=== PATIENT | male | born 1965 | race Caucasian/White ===

== ENCOUNTER 2020-06-13 22:16 | Inpatient (IN) | payer OTHER ==
[2020-06-13] MEDS ORDERED: DEXAMETHASONE SOD PHOSPHATE 10 MG/ML 1 ML VIAL IV STA (23:02)
[2020-06-13] MEDS ORDERED: SODIUM CHLORIDE 0.9% 500 ML 500 ML IV STA (23:03)
--- NOTE | 2020-06-13 23:30 | ED ---
SOB HPI - General Chief Complaint: Shortness of Breath Stated Complaint: COVID+,Low oxygen level Time Seen by Provider: 06/13/20 22:32 Source: patient Mode of arrival: ambulatory Limitations: no limitations - History of Present Illness Initial Comments: Patient is a healthy 55-year-old male, with no pertinent past medical history, presenting to the emergency Department with complaints of increasing shortness of breath. Patient states he was diagnosed with Covid 5 days ago, had body aches, fatigue, fever and a cough and shortness of breath. Patient states he's been monitoring his oxygen levels at home and they have been dipping down into the 80s so he came in to be seen. He states he is feeling increasingly short of breath. He was having some nausea and vomiting, some mild diarrhea to start with. He denies history of asthma or COPD, is a nonsmoker, he takes no medications at home. His is also Covid +, but not as severe. He has been taking Tylenol and Motrin for the fever. Denies chest pains, no abdominal pains. He has no further complaints at this time. Upon arrival to the ER, he is afebrile, slightly tachycardia at 101, 86% on room air. - Related Data Allergies Allergy/AdvReac Type Severity Reaction Status Date / Time No Known Allergies Allergy Verified 06/13/20 22:26 Review of Systems ROS Statement: Those systems with pertinent positive or pertinent negative responses have been documented in the HPI. ROS Other: All systems not noted in ROS Statement are negative. Past Medical History Past Medical History: No Reported History History of Any Multi-Drug Resistant Organisms: None Reported Past Surgical History: Orthopedic Surgery Past Psychological History: No Psychological Hx Reported Smoking Status: Never smoker Past Alcohol Use History: Occasional Past Drug Use History: None Reported General Exam - General Exam Comments Initial Comments: GENERAL: Patient is well-developed and well-nourished. Patient is nontoxic and in mild distress. HEAD: Atraumatic, normocephalic. EYES: Pupils equal round and reactive to light, extraocular movements intact, sclera anicteric, conjunctiva are normal. Eyelids were unremarkable. ENT: TMs normal, nares patent, oropharynx clear without exudates. Moist mucous membranes. NECK: Normal range of motion, supple without lymphadenopathy or JVD. LUNGS: Slightly labored respirations. Breath sounds clear to auscultation bilaterally and equal. No wheezes rales or rhonchi. HEART: Tachy rate and rhythm without murmurs, rubs or gallops. ABDOMEN: Soft, nontender, normoactive bowel sounds. No guarding, no rebound. No masses appreciated. : Deferred MUSCULOSKELETAL: Normal extremities with adequate strength and normal range of motion, no pitting or edema. No clubbing or cyanosis. NEUROLOGICAL: Patient is alert and oriented x 3. Motor and sensory are also intact. Cranial nerves II through XII grossly intact. Symmetrical smile. Normal speech, normal gait. PSYCH: Normal mood, normal affect. SKIN: Warm, Dry, normal turgor, no rashes or lesions noted. Limitations: no limitations Course Vital Signs 06/13/20 06/13/20 06/14/20 22:22 23:01 00:14 Temperature 97.8 F Pulse Rate 101 H 90 84 Respiratory 18 20 18 Rate Blood Pressure 114/75 120/77 109/80 O2 Sat by Pulse 86 L 96 98 Oximetry 06/14/20 06/14/20 01:06 02:20 Temperature Pulse Rate 87 90 Respiratory 18 18 Rate Blood Pressure 122/82 122/82 O2 Sat by Pulse 95 95 Oximetry Medical Decision Making - Medical Decision Making Patient is a 55-year-old male here with increasing shortness of breath over the past few days. Covid +5 days ago. Patient arrived afebrile, 86% on room air. He was switched to a nonrebreather satting at 96%. Labs show normal white count, slightly elevated dimer 0.84. Sodium and chloride are low, LDH is high at 2500, CRP is 150. Chest x-ray shows extensive pulmonary infiltrates could relate to pneumonia and RSD. CT chest angio shows no evidence for PE. Patient given dose of steroids, some fluids. He has been resting comfortably. He'll be admitted for Covid pneumonia, hypoxia. Patient accepted by Dr. Holder. Pulmonology on consult. Case discussed with Dr. Cruz. - Lab Data Result diagrams: 06/13/20 23:07 06/13/20 23:07 Lab Results 06/13/20 06/13/20 06/13/20 Range/Units 23:07 23:07 23:07 WBC 6.4 (3.8-10.6) k/uL RBC 5.17 (4.30-5.90) m/uL Hgb 16.2 (13.0-17.5) gm/dL Hct 45.0 (39.0-53.0) % MCV 87.1 (80.0-100.0) fL MCH 31.3 (25.0-35.0) pg MCHC 35.9 (31.0-37.0) g/dL RDW 12.9 (11.5-15.5) % Plt Count 153 (150-450) k/uL MPV 8.3 Neutrophils % 81 % Lymphocytes % 14 % Monocytes % 3 % Eosinophils % 0 % Basophils % 1 % Neutrophils # 5.2 (1.3-7.7) k/uL Lymphocytes # 0.9 L (1.0-4.8) k/uL Monocytes # 0.2 (0-1.0) k/uL Eosinophils # 0.0 (0-0.7) k/uL Basophils # 0.0 (0-0.2) k/uL PT 10.6 (9.0-12.0) sec INR 1.0 (<1.2) APTT 27.1 (22.0-30.0) sec D-Dimer 0.84 H (<0.60) mg/L FEU Sodium 129 L (137-145) mmol/L Potassium 4.6 (3.5-5.1) mmol/L Chloride 97 L (98-107) mmol/L Carbon Dioxide 23 (22-30) mmol/L Anion Gap 9 mmol/L BUN 12 (9-20) mg/dL Creatinine 0.84 (0.66-1.25) mg/dL Est GFR (CKD-EPI)AfAm >90 (>60 ml/min/1.73 sqM) Est GFR (CKD-EPI)NonAf >90 (>60 ml/min/1.73 sqM) Glucose 114 H (74-99) mg/dL Plasma Lactic Acid Arthur (0.7-2.0) mmol/L Calcium 8.4 (8.4-10.2) mg/dL Magnesium 2.0 (1.6-2.3) mg/dL Total Bilirubin 0.8 (0.2-1.3) mg/dL AST 106 H (17-59) U/L ALT 77 H (4-49) U/L Alkaline Phosphatase 57 (38-126) U/L Lactate Dehydrogenase 2547 H (313-618) U/L C-Reactive Protein 150.7 H (<10.0) mg/L Total Protein 6.5 (6.3-8.2) g/dL Albumin 3.6 (3.5-5.0) g/dL 06/13/20 Range/Units 23:07 WBC (3.8-10.6) k/uL RBC (4.30-5.90) m/uL Hgb (13.0-17.5) gm/dL Hct (39.0-53.0) % MCV (80.0-100.0) fL MCH (25.0-35.0) pg MCHC (31.0-37.0) g/dL RDW (11.5-15.5) % Plt Count (150-450) k/uL MPV Neutrophils % % Lymphocytes % % Monocytes % % Eosinophils % % Basophils % % Neutrophils # (1.3-7.7) k/uL Lymphocytes # (1.0-4.8) k/uL Monocytes # (0-1.0) k/uL Eosinophils # (0-0.7) k/uL Basophils # (0-0.2) k/uL PT (9.0-12.0) sec INR (<1.2) APTT (22.0-30.0) sec D-Dimer (<0.60) mg/L FEU Sodium (137-145) mmol/L Potassium (3.5-5.1) mmol/L Chloride (98-107) mmol/L Carbon Dioxide (22-30) mmol/L Anion Gap mmol/L BUN (9-20) mg/dL Creatinine (0.66-1.25) mg/dL Est GFR (CKD-EPI)AfAm (>60 ml/min/1.73 sqM) Est GFR (CKD-EPI)NonAf (>60 ml/min/1.73 sqM) Glucose (74-99) mg/dL Plasma Lactic Acid Arthur 1.0 (0.7-2.0) mmol/L Calcium (8.4-10.2) mg/dL Magnesium (1.6-2.3) mg/dL Total Bilirubin (0.2-1.3) mg/dL AST (17-59) U/L ALT (4-49) U/L Alkaline Phosphatase (38-126) U/L Lactate Dehydrogenase (313-618) U/L C-Reactive Protein (<10.0) mg/L Total Protein (6.3-8.2) g/dL Albumin (3.5-5.0) g/dL - EKG Data EKG Comments: Normal sinus rhythm, possible left atrial large amount, pulmonary disease pattern, no signs of acute ischemia. Ventricular rate 92, NC interval 132, QT 350. Disposition Clinical Impression: Pneumonia due to COVID-19 virus, Hypoxia Disposition: ADMITTED IP TO THIS HOSP Condition: Stable Referrals: Maxwell Alexander MD [Primary Care Provider] - 1-2 days Decision Date: 06/14/20 Decision Time: 01:48
[2020-06-13 23:38] LABS: Basophils % (A) 1 %; Eosinophils % (A) 0 %; HGB 16.2 gm/dL (13.0-17.5); Lymphocytes # (A) 0.9 k/uL (1.0-4.8); Lymphocytes % (A) 14 %; MCH 31.3 pg (25.0-35.0); MCHC 35.9 g/dL (31.0-37.0); MCV 87.1 fL (80.0-100.0); Mean Platelet Volume 8.3; Monocytes # (A) 0.2 k/uL (0-1.0); Monocytes % (A) 3 %; Neutrophils # (A) 5.2 k/uL (1.3-7.7); Neutrophils % (A) 81 %; Platelet Count 153 k/uL (150-450); RBC 5.17 m/uL (4.30-5.90); RDW 12.9 % (11.5-15.5); WBC 6.4 k/uL (3.8-10.6)
[2020-06-13 23:52] LABS: Partial Thromboplastin Time 27.1 sec (22.0-30.0); Prothrombin Time 10.6 sec (9.0-12.0)
--- NOTE | 2020-06-14 00:01 | XR ---
EXAMINATION TYPE: XR chest 1V portable DATE OF EXAM: 06/13/2020 COMPARISON: NONE HISTORY: Short of breath TECHNIQUE: Single view FINDINGS: There is extensive bilateral pulmonary interstitial and airspace infiltrates. There are myrna st leads. IMPRESSION: Extensive pulmonary infiltrates that could relate to pneumonia and RDS.
[2020-06-14 00:03] LABS: ALT 77 U/L (4-49); AST 106 U/L (17-59); African American GFR (CKD) >90 (>60 ml/min/1.73 sqM); Albumin 3.6 g/dL (3.5-5.0); Alkaline Phosphatase 57 U/L (38-126); Anion Gap 9 mmol/L; Blood Urea Nitrogen 12 mg/dL (9-20); Calcium 8.4 mg/dL (8.4-10.2); Carbon Dioxide 23 mmol/L (22-30); Chloride 97 mmol/L (98-107); Glucose 114 mg/dL (74-99); Non-African American GFR(CKD) >90 (>60 ml/min/1.73 sqM); Potassium 4.6 mmol/L (3.5-5.1); Sodium 129 mmol/L (137-145); Total Bilirubin 0.8 mg/dL (0.2-1.3); Total Protein 6.5 g/dL (6.3-8.2)
[2020-06-14 00:25] LABS: LDH 2547 U/L (313-618)
[2020-06-14 00:32] LABS: C Reactive Protein 150.7 mg/L (<10.0); D-Dimer 0.84 mg/L FEU (<0.60)
[2020-06-14] MEDS ORDERED: NALOXONE 0.4 MG/ML 1 ML VIAL IV PRN (01:45)
[2020-06-14] MEDS ORDERED: IBUPROFEN 400 MG TAB PO PRN (01:45)
[2020-06-14] MEDS ORDERED: ONDANSETRON 4 MG/2 ML VIAL IVP PRN (01:45)
--- NOTE | 2020-06-14 02:34 | CT ---
EXAM: CT Angiography Chest With Intravenous Contrast CLINICAL HISTORY: ITS.REASON CT Reason: PE TECHNIQUE: Axial computed tomographic angiography images of the chest with intravenous contrast. CTDI is 20.07 mGy and DLP is 450.4 mGy-cm. This CT exam was performed using one or more of the following dose reduction techniques: automated exposure control, adjustment of the mA and/or kV according to patient size, and/or use of iterative reconstruction technique. MIP reconstructed images were created and reviewed. COMPARISON: No relevant prior studies available. FINDINGS: Pulmonary arteries: Unremarkable. No pulmonary embolism. Aorta: No acute findings. No thoracic aortic aneurysm. Lungs: Patchy areas of nodular consolidation in the bilateral lower lobes with ground glass consolidation of the periphery of the bilateral upper lobes. Pleural space: Unremarkable. No significant effusion. No pneumothorax. Heart: Unremarkable. No cardiomegaly. No significant pericardial effusion. No evidence of RV dysfunction. Bones/joints: No acute fracture. No dislocation. Soft tissues: Unremarkable. Lymph nodes: Unremarkable. No enlarged lymph nodes. IMPRESSION: 1. No acute pulmonary embolism. 2. Patchy areas of nodular consolidation in the bilateral lower lobes with ground glass consolidation of the periphery of the bilateral upper lobes consistent with multifocal infection, compatible with COVID pneumonia. 3. No pleural effusions or pneumothorax.
[2020-06-14] MEDS: ACETAMINOPHEN TAB 325 MG TAB PO PRN (05:13)
[2020-06-14] MEDS: SODIUM CHLORIDE 0.9% 1,000 ML IV SCH ×2 (05:26→17:51)
[2020-06-14] MEDS: ASCORBIC ACID 500 MG TAB PO SCH (08:47)
[2020-06-14] MEDS: ENOXAPARIN 40 MG/0.4 ML SYRINGE SQ SCH (08:47)
[2020-06-14] MEDS: CHOLECALCIFEROL 25 MCG (1000 IU) TABLET PO SCH (08:47)
[2020-06-14] MEDS: dexAMETHasone 2 MG TAB PO SCH (08:48)
[2020-06-14] MEDS: ZINC SULFATE 220 MG CAP PO SCH (08:49)
--- NOTE | 2020-06-14 10:07 | P.CNPUL ---
History of Present Illness Consult date: 06/14/20 Reason for consult: dyspnea, hypoxemia, pneumonia History of present illness: 55-year-old female patient presented with shortness of breath and the patient had a COVID 19 associated pneumonia. The patient was diagnosed having COVID 19 likely 5 days ago. Patient symptoms as well as body ache and fatigue and subsequently fever and cough and shortness of breath. Her pulse ox at home and drop down to the 80s and for that reason the patient came into the hospital. She also had some nausea and emesis and some mild diarrhea. She was taking T ylenol for her fever in addition to Motrin. In the emergency, the patient's pulse ox was 86% on room air and she was tachycardic, sinus tachycardia. Her blood work showed an LDH level of 2547, CRP of 150, d-dimer of 0.8. Sodium level was 129. The patient had lymphopenia. The chest x-ray showed extensive bilateral consolidations most on the peripheries and spreading the upper lobes. A CT angiogram of the chest showed no evidence of any pulmonary embolism. The patient had patchy areas of no other consolidation in the lower lobes bilaterally along with some areas of groundglass and consolidations bilaterally. No evidence of any pleural effusion. No other major abnormalities. Patient is currently on oxygen and he is on 15 L of oxygen by nonrebreather facemask. He is also placed on Decadron 6 mg by mouth daily, Lovenox 40 mg subcu daily. At this point in time, the patient is on 15 L nonrebreather facemask. He has labored breathing even while talking and sometimes even at rest. Review of Systems Constitutional: Reports fatigue, Reports fever, Reports lethargy Eyes: denies as per HPI, denies blurred vision, denies bulging eye, denies decreased vision, denies diplopia, denies discharge, denies dry eye, denies i rritation, denies itching, denies pain, denies photophobia, denies loss of peripheral vision, denies loss of vision, denies tunnel vision/blind spots Ears: deny: decreased hearing, ear discharge, earache, tinnitus Breasts: absent: as per HPI, gynecomastia Cardiovascular: Reports dyspnea on exertion Respiratory: Reports cough, Reports dyspnea Gastrointestinal: Reports as per HPI, Reports diarrhea, Reports loss of appetite Genitourinary: Reports as per HPI Musculoskeletal: Reports as per HPI, Reports muscle weakness Musculoskeletal: absent: ankle pain, ankle stiffness, ankle swelling, as per HPI , elbow pain, elbow stiffness, elbow swelling, foot pain, foot stiffness, foot swelling, hand pain, hand stiffness, hand swelling, hip pain, hip stiffness, hip swelling, knee pain, knee stiffness, knee swelling, shoulder pain, shoulder stiffness, shoulder swelling, wrist pain, wrist stiffness, wrist swelling Integumentary: Reports as per HPI Neurological: Reports as per HPI, Reports weakness Psychiatric: Reports as per HPI Endocrine: Reports as per HPI Hematologic/Lymphatic: Reports as per HPI Allergic/Immunologic: Reports as per HPI Past Medical History Past Medical History: No Reported History History of Any Multi-Drug Resistant Organisms: None Reported Past Surgical History: Orthopedic Surgery Additional Past Surgical History / Comment(s): surgery on hyloid surgery Past Anesthesia/Blood Transfusion Reactions: No Reported Reaction Past Psychological History: No Psychological Hx Reported Smoking Status: Never smoker Past Alcohol Use History: Occasional Past Drug Use History: None Reported - Past Family History Father Additional Family Medical History / Comment(s): none Medications and Allergies Home Medications Medication Instructions Recorded Confirmed Type No Known Home Medications 06/14/20 06/14/20 History Allergies Allergy/AdvReac Type Severity Reaction Status Date / Time No Known Allergies Allergy Verified 06/14/20 07:39 Physical Exam Vitals: Vital Signs Temp Pulse Pulse Resp BP BP Pulse Ox 06/14/20 02:20 90 18 122/82 95 06/14/20 02:15 26 H 06/14/20 02:14 97 F L 91 19 116/59 91 L 06/14/20 01:06 87 18 122/82 95 06/14/20 00:14 84 18 109/80 98 06/13/20 23:01 90 20 120/77 96 06/13/20 22:22 97.8 F 101 H 18 114/75 86 L Intake and Output 06/13/20 06/14/20 06/14/20 22:59 06:59 14:59 Intake Total 260 Balance 260 Intake: Intake, IV Titration 60 Amount Sodium Chloride 0.9% 1, 60 000 ml @ 60 mls/hr IV . [id number] [facility] Rx#:[id number] Oral 200 Other: # Voids 1 Weight 81.647 kg 79.379 kg Gen. appearance the patient is in mild degree of respiratory distress currently on 100% nonrebreather facemask Head exam was generally normal. There was no scleral icterus or corneal arcus. Mucous membranes were moist. Neck was supple and without jugular venous distension, thyromegaly, or carotid bruits. Carotids were easily palpable bilaterally. There was no adenopathy. Lungs sounds reveal crackles in the mid and lower lung driver bilaterally and the patient is extensive crackling Cardiac exam revealed the PMI to be normally situated and sized. The rhythm was regular and no extrasystoles were noted during several minutes of auscultation. The first and second heart sounds were normal and physiologic splitting of the second heart sound was noted. There were no murmurs, rubs, clicks, or gallops. Abdominal exam revealed normal bowel sounds. The abdomen was soft, non-tender, and without masses, organomegaly, or appreciable enlargement of the abdominal aorta. Examination of the extremities revealed easily palpable radial, femoral and pedal pulses. There was no cyanosis, clubbing or edema. Examination of the skin revealed no evidence of significant rashes, suspicious appearing nevi or other concerning lesions. Neurologically, the patient is awake and alert and the patient does not have any focal neurological deficit. Cranial nerves are essentially intact. Results - Laboratory Findings CBC and BMP: 06/13/20 23:07 06/13/20 23:07 PT/INR, D-dimer PT 10.6 sec (9.0-12.0) 06/13/20 23:07 INR 1.0 (<1.2) 06/13/20 23:07 D-Dimer 0.84 mg/L FEU (<0.60) H 06/13/20 23:07 Abnormal lab findings: Abnormal Labs 06/13/20 06/13/20 06/13/20 23:07 23:07 23:07 Lymphocytes # 0.9 L D-Dimer 0.84 H Sodium 129 L Chloride 97 L Glucose 114 H AST 106 H ALT 77 H Lactate Dehydrogenase 2547 H C-Reactive Protein 150.7 H - Diagnostic Findings Chest x-ray: image reviewed CT scan - chest: image reviewed Assessment and Plan Plan: 1 acute Covid 19pneumonia with secondary shortness of breath. Patient was diagnosed on 06/08/2020. Symptoms started on 06/07/2020 the patient rapidly progressed and the patient is coming in with worsening shortness of breath and bilateral pneumonia and extensive consolidation 2 acute hypoxic respiratory failure currently on 100% nonrebreather facemask 3 shortness of breath secondary to above 4 elevated inflammatory markers secondary to above 5 lymphopenia secondary to above 6 mild hyponatremia Plan The patient on the percent nonrebreather facemask and monitor the oxygenation v palma closely May need high flow oxygen at a later stage or even the BiPAP Is not a candidate for Remdesivir due to high oxygen requirements Continue Decadron 6 mg IV every 24 hours Order convalescent plasma Ordered Tocilizumab 634 mg IV 1 Monitor inflammatory markers IV fluids Multivitamins We'll continue to follow.
[2020-06-14 11:00] LABS: Basophils % (A) 0 %; Eosinophils % (A) 0 %; HCT 45.6 % (39.0-53.0); HGB 16.4 gm/dL (13.0-17.5); Lymphocytes # (A) 0.5 k/uL (1.0-4.8); Lymphocytes % (A) 8 %; MCH 31.6 pg (25.0-35.0); MCV 87.8 fL (80.0-100.0); Mean Platelet Volume 8.5; Monocytes # (A) 0.2 k/uL (0-1.0); Monocytes % (A) 3 %; Neutrophils # (A) 6.1 k/uL (1.3-7.7); Neutrophils % (A) 88 %; Platelet Count 174 k/uL (150-450); RBC 5.19 m/uL (4.30-5.90); RDW 13.1 % (11.5-15.5); WBC 6.9 k/uL (3.8-10.6)
[2020-06-14] MEDS ORDERED: TOCILIZUMAB 640 MG in SODIUM CHLORIDE 0.9% 68 ML IV ONE (11:00)
[2020-06-14 11:19] LABS: ALT 70 U/L (4-49); AST 90 U/L (17-59); African American GFR (CKD) >90 (>60 ml/min/1.73 sqM); Albumin 3.1 g/dL (3.5-5.0); Alkaline Phosphatase 66 U/L (38-126); Anion Gap 4 mmol/L; Blood Urea Nitrogen 15 mg/dL (9-20); Calcium 8.4 mg/dL (8.4-10.2); Carbon Dioxide 27 mmol/L (22-30); Chloride 104 mmol/L (98-107); Glucose 146 mg/dL (74-99); Non-African American GFR(CKD) >90 (>60 ml/min/1.73 sqM); Potassium 4.8 mmol/L (3.5-5.1); Sodium 135 mmol/L (137-145); Total Bilirubin 0.5 mg/dL (0.2-1.3); Total Protein 5.7 g/dL (6.3-8.2)
[2020-06-14] MEDS: PANTOPRAZOLE 40 MG TABLET PO SCH (11:28)
[2020-06-14 11:32] LABS: C Reactive Protein 160.3 mg/L (<10.0); LDH 2347 U/L (313-618)
--- NOTE | 2020-06-14 14:41 | P.HPIM ---
History of Present Illness H&P Date: 06/14/20 Chief Complaint: KAVON HISTORY OF PRESENT ILLNESS This is a 55-year-old male patient of Dr. Maxwell Alexander with significant past medical history. Patient states he started having symptoms on June 01 and was diagnosed with COVID-19 on June 08. Patient symptoms or body aches and fatigue as well as cough with white sputum production, increasing shortness of breath and measured pulse ox at home which worsened. He complains of headache chills and nausea. Patient presented to [facility] emergency center for evaluation. Patient was afebrile, heart rate 101, blood pressure 114/75, pulse ox 86% on room air. WBC 6.4, hemoglobin 16.2, platelet count 153. D-dimer 0.84. AST 106, ALT 44, alkaline phosphatase 57, LDH 2547. CRP 150. Sodium 129, potassium 4.6, chloride 97, CO2 23, BUN 12 and creatinine 0.84. Blood sugar 114. Chest x-ray reveals extensive pulmonary infiltrates related to pneumonia and ARDS. CTA of the chest reveals no pulmonary embolism. Patchy areas of nodular consolidations in the bilateral lower lobes with groundglass consolidation of the peripheral of the bilateral upper lobes consistent with multifocal infection compatible with Covid pneumonia. No pleural effusions or pneumothorax. Patient has been seen by pulmonary medicine is not a candidate for Remdesivir. Convalescent plasma has been ordered as well as Tocilizumab 1 dose. Patient is currently pulse ox 95% on 15 L nonrebreather. REVIEW OF SYSTEMS Constitutional: No fever, no chills, no night sweats. No weight change. Reports weakness, Reports fatigue or lethargy. No daytime sleepiness. EENT: Reports headache. No blurred vision or double vision, no loss of vision. No loss of Hearing, no ringing in the ears, no dizziness. No nasal drainage or congestion. No epistaxis. No sore throat. Lungs: Reports shortness of breath, reports cough, Reports sputum production. No wheezing. Cardiovascular: No chest pain, no lower extremity edema. No palpitations. No paroxysmal nocturnal dyspnea. No orthopnea. No lightheadedness or dizziness. No syncopal episodes. Abdominal: No abdominal pain. Reports nausea, no vomiting. No diarrhea. No constipation. No bloody or tarry stools reports loss of appetite. Genitourinary: No dysuria, increased frequency, urgency. No urinary retention. Musculoskeletal: Reports myalgias. No muscle weakness, no gait dysfunction, no frequent falls. No back pain. No neck pain. Integumentary: No wounds, no lesions. No rash or pruritus. No unusual bruising. Neurologic: No aphasia. No facial droop. No change in mentation. No head injury. No headache. No paralysis. No paresthesia. Psychiatric: No depression. No anxiety. No mood swings. Endocrine: No abnormal blood sugars. No weight change. No excessive sweating or thirst. No cold intolerance. SOCIAL HISTORY Patient is a nonsmoker, no alcohol use or abuse, no illicit drug use. FAMILY HISTORY Mother from lung cancer. Father is alive with no major medical problems. Patient does not have any sisters. Patient has 2 brothers with no major medical problems. PHYSICAL EXAMINATION Gen: This is a 55-year-old male. He is resting in bed appears to be comfortable at rest. He is currently on 100% nonrebreather mask.] HEENT: Head is atraumatic, normocephalic. Pupils equal, round. Sclerae is anicteric. NECK: Supple. No JVD. No lymphadenopathy. No thyromegaly. LUNGS: Crackles bilaterally. No wheezes. No intercostal retractions. HEART: Regular rate and rhythm. No murmur. ABDOMEN: Soft. Bowel sounds are present. No masses. No tenderness. EXTREMITIES: No pedal edema. No calf tenderness. Dorsalis pedis +2 bilaterally. NEUROLOGICAL: Patient is awake, alert and oriented x3. Cranial nerves 2 through 12 are grossly intact. ASSESSMENT AND PLAN 1. Acute hypoxic respiratory failure secondary to Covid 19 pneumonia. Patient has been seen by both her medicine and Convalescent plasma has been ordered as well as Tocilizumab 1 dose. Continue dexamethasone 6 mg every 24 hours, Lovenox 40 mg subcu daily, vitamins. 2. Elevated inflammatory markers secondary to Covid 19. Continue to monitor. 3. Mild hyponatremia. Continue IV fluids. 4. Elevated d-dimer. Acute pulmonary embolism has been ruled out by CTA. 5. Lymphocytopenia secondary to Covid 19. 6. GI prophylaxis. Protonix daily. 7. DVT prophylaxis. Lovenox. Patient will be admitted to the hospital for a minimum of 2 night stay. DISCHARGE PLAN Home. Impression and plan of care have been directed as dictated by the signing physician. Cathy Quintanilla nurse practitioner acting as scribe for signing physician. Past Medical History Past Medical History: No Reported History History of Any Multi-Drug Resistant Organisms: None Reported Past Surgical History: Orthopedic Surgery Additional Past Surgical History / Comment(s): surgery on hyloid surgery Past Anesthesia/Blood Transfusion Reactions: No Reported Reaction Past Psychological History: No Psychological Hx Reported Smoking Status: Never smoker Past Alcohol Use History: Occasional Past Drug Use History: None Reported - Past Family History Father Additional Family Medical History / Comment(s): none Medications and Allergies Home Medications Medication Instructions Recorded Confirmed Type No Known Home Medications 06/14/20 06/14/20 History Allergies Allergy/AdvReac Type Severity Reaction Status Date / Time No Known Allergies Allergy Verified 06/14/20 07:39 Physical Exam Vitals: Vital Signs Temp Pulse Pulse Resp BP BP Pulse Ox 06/14/20 02:20 90 18 122/82 95 06/14/20 02:15 26 H 06/14/20 02:14 97 F L 91 19 116/59 91 L 06/14/20 01:06 87 18 122/82 95 06/14/20 00:14 84 18 109/80 98 06/13/20 23:01 90 20 120/77 96 06/13/20 22:22 97.8 F 101 H 18 114/75 86 L Intake and Output 06/13/20 06/14/20 06/14/20 22:59 06:59 14:59 Intake Total 260 Balance 260 Intake: Intake, IV Titration 60 Amount Sodium Chloride 0.9% 1, 60 000 ml @ 60 mls/hr IV . [id number] [facility] Rx#:[id number] Oral 200 Other: # Voids 1 Weight 81.647 kg 79.379 kg Results CBC & Chem 7: 06/14/20 10:20 06/14/20 10:20 Labs: Abnormal Lab Results - Last 24 Hours (Table) 06/13/20 06/13/20 06/13/20 Range/Units 23:07 23:07 23:07 Lymphocytes # 0.9 L (1.0-4.8) k/uL D-Dimer 0.84 H (<0.60) mg/L FEU Sodium 129 L (137-145) mmol/L Chloride 97 L (98-107) mmol/L Glucose 114 H (74-99) mg/dL AST 106 H (17-59) U/L ALT 77 H (4-49) U/L Lactate Dehydrogenase 2547 H (313-618) U/L C-Reactive Protein 150.7 H (<10.0) mg/L Thrombosis Risk Factor Assmnt - Choose All That Apply Any of the Below Risk Factors Present?: Yes Each Factor Represents 1 point: Age 41-60 years Other Risk Factors: No Other congenital or acquired thrombophilia - If yes, enter type in comment: No Thrombosis Risk Factor Assessment Total Risk Factor Score: 1 Thrombosis Risk Factor Assessment Level: Low Risk
[2020-06-14 17:06] LABS: Glucose,Whole Blood 139 mg/dL (75-99)
[2020-06-14] MEDS: INSULIN ASPART (NovoLOG) 100 UNIT/ML VIAL SQ SCH ×2 (17:41→20:54)
[2020-06-14 20:37] LABS: Glucose,Whole Blood 143 mg/dL (75-99)
[2020-06-15 07:58] LABS: Glucose,Whole Blood 118 mg/dL (75-99)
[2020-06-15 08:01] LABS: HCT 44.1 % (39.0-53.0); HGB 15.4 gm/dL (13.0-17.5); MCHC 34.9 g/dL (31.0-37.0); MCV 88.9 fL (80.0-100.0); Mean Platelet Volume 8.4; Platelet Count 208 k/uL (150-450); RBC 4.96 m/uL (4.30-5.90); RDW 13.1 % (11.5-15.5); WBC 11.4 k/uL (3.8-10.6)
[2020-06-15 08:26] LABS: ALT 67 U/L (4-49); AST 96 U/L (17-59); African American GFR (CKD) >90 (>60 ml/min/1.73 sqM); Alkaline Phosphatase 70 U/L (38-126); Anion Gap 4 mmol/L; Blood Urea Nitrogen 20 mg/dL (9-20); C Reactive Protein 59.4 mg/L (<10.0); Calcium 8.2 mg/dL (8.4-10.2); Carbon Dioxide 27 mmol/L (22-30); Chloride 105 mmol/L (98-107); Glucose 133 mg/dL (74-99); Non-African American GFR(CKD) >90 (>60 ml/min/1.73 sqM); Potassium 4.8 mmol/L (3.5-5.1); Sodium 136 mmol/L (137-145); Total Bilirubin 0.5 mg/dL (0.2-1.3); Total Protein 5.5 g/dL (6.3-8.2)
[2020-06-15 08:31] LABS: LDH 2884 U/L (313-618)
[2020-06-15] MEDS: INSULIN ASPART (NovoLOG) 100 UNIT/ML VIAL SQ SCH ×4 (09:00→20:40)
--- NOTE | 2020-06-15 09:45 | XR ---
EXAMINATION TYPE: XR chest 1V portable DATE OF EXAM: 06/15/2020 COMPARISON: 06/13/2020 INDICATION: Covid TECHNIQUE: Single frontal view of the chest is obtained. FINDINGS: The heart size is normal. The pulmonary vasculature is normal. Diffuse increased lung markings are present bilaterally. IMPRESSION: 1. Worsening diffuse bilateral lung filtrates.
[2020-06-15] MEDS: ENOXAPARIN 40 MG/0.4 ML SYRINGE SQ SCH (09:47)
[2020-06-15] MEDS: PANTOPRAZOLE 40 MG TABLET PO SCH (09:47)
[2020-06-15] MEDS: CHOLECALCIFEROL 25 MCG (1000 IU) TABLET PO SCH (09:48)
[2020-06-15] MEDS: ZINC SULFATE 220 MG CAP PO SCH (09:48)
[2020-06-15] MEDS: ASCORBIC ACID 500 MG TAB PO SCH (09:48)
[2020-06-15] MEDS: dexAMETHasone 2 MG TAB PO SCH (09:48)
[2020-06-15] MEDS ORDERED: FLUTICASONE 50MCG/SPRAY NASAL 16GM EA NOSTRIL PRN (09:56)
[2020-06-15] MEDS: BENZONATATE 100 MG CAP PO SCH ×3 (10:33→21:34)
[2020-06-15] MEDS: SODIUM CHLORIDE 0.9% 1,000 ML IV SCH (10:33)
--- NOTE | 2020-06-15 10:47 | P.PN ---
Subjective Progress Note Date: 06/15/20 55-year-old female patient presented with shortness of breath and the patient h ad a COVID 19 associated pneumonia. The patient was diagnosed having COVID 19 likely 5 days ago. Patient symptoms as well as body ache and fatigue and subsequently fever and cough and shortness of breath. Her pulse ox at home and drop down to the 80s and for that reason the patient came into the hospital. She also had some nausea and emesis and some mild diarrhea. She was taking Tylenol for her fever in addition to Motrin. In the emergency, the patient's pulse ox was 86% on room air and she was tachycardic, sinus tachycardia. Her blood work showed an LDH level of 2547, CRP of 150, d-dimer of 0.8. Sodium level was 129. The patient had lymphopenia. The chest x-ray showed extensive bilateral consolidations most on the peripheries and spreading the upper lobes. A CT angiogram of the chest showed no evidence of any pulmonary embolism. The patient had patchy areas of no other consolidation in the lower lobes bilaterally along with some areas of groundglass and consolidations bilaterally. No evidence of any pleural effusion. No other major abnormalities. Patient is currently on oxygen and he is on 15 L of oxygen by nonrebreather facemask. He is also placed on Decadron 6 mg by mouth daily, Lovenox 40 mg subcu daily. At this point in time, the patient is on 15 L nonrebreather facemask. He has labored breathing even while talking and sometimes even at rest. 06/15/2020, the patient remains in the 100% nonrebreather facemask. Repeat chest x-ray was done and was reported that the patient has diffuse interstitial infiltrates bilaterally with probably some interval worsening. Clinically however, the patient is feeling better. He also was started on a combination of steroids and the patient received convalescent plasma 1 and he also received a dose of Actemra 140 mg IV. His blood work from today is showing a d-dimer of 0.95, LDH level is up to 2884 and the CRP level is down to 59.4. Objective - Vital Signs Vital signs: Vital Signs Temp 96.5 F L 06/15/20 07:45 Pulse 87 06/15/20 07:45 Resp 32 H 06/15/20 07:45 BP 112/70 06/15/20 07:45 Pulse Ox 88 L 06/15/20 07:45 Intake & Output 06/14/20 06/15/20 06/15/20 18:59 06:59 18:59 Intake Total 1134 1220 Balance 1134 1220 Intake: Intake, IV Titration 488 720 Amount Sodium Chloride 0.9% 1, 420 720 000 ml @ 60 mls/hr IV . [id number] [facility] Rx#:[id number] Tocilizumab 640 mg In 68 Sodium Chloride 0.9% 68 ml @ 100 mls/hr IV ONCE ONE Rx#:[id number] Blood Product 646 500 Ffp Convalescent Plasma 323 Cpd Unit [id number] Other: # Voids 2 # Bowel Movements 2 - Exam Gen. appearance the patient is in mild degree of respiratory distress currently on 100% nonrebreather facemask Head exam was generally normal. There was no scleral icterus or corneal arcus. Mucous membranes were moist. Neck was supple and without jugular venous distension, thyromegaly, or carotid bruits. Carotids were easily palpable bilaterally. There was no adenopathy. Lungs sounds reveal crackles in the mid and lower lung driver bilaterally and the patient is extensive crackling Cardiac exam revealed the PMI to be normally situated and sized. The rhythm was regular and no extrasystoles were noted during several minutes of auscultation. The first and second heart sounds were normal and physiologic splitting of the second heart sound was noted. There were no murmurs, rubs, clicks, or gallops. Abdominal exam revealed normal bowel sounds. The abdomen was soft, non-tender, and without masses, organomegaly, or appreciable enlargement of the abdominal aorta. Examination of the extremities revealed easily palpable radial, femoral and pedal pulses. There was no cyanosis, clubbing or edema. Examination of the skin revealed no evidence of significant rashes, suspicious appearing nevi or other concerning lesions. Neurologically, the patient is awake and alert and the patient - Labs CBC & Chem 7: 06/15/20 07:32 06/15/20 07:32 Labs: Abnormal Lab Results - Last 24 Hours (Table) 06/14/20 06/14/20 06/14/20 Range/Units 10:20 10:20 10:20 WBC (3.8-10.6) k/uL Lymphocytes # 0.5 L (1.0-4.8) k/uL D-Dimer 0.78 H (<0.60) mg/L FEU Sodium 135 L (137-145) mmol/L Glucose 146 H (74-99) mg/dL POC Glucose (mg/dL) (75-99) mg/dL Calcium (8.4-10.2) mg/dL AST 90 H (17-59) U/L ALT 70 H (4-49) U/L Lactate Dehydrogenase 2347 H (313-618) U/L C-Reactive Protein 160.3 H (<10.0) mg/L Total Protein 5.7 L (6.3-8.2) g/dL Albumin 3.1 L (3.5-5.0) g/dL 06/14/20 06/14/20 06/15/20 Range/Units 17:04 20:36 07:32 WBC 11.4 H (3.8-10.6) k/uL Lymphocytes # (1.0-4.8) k/uL D-Dimer (<0.60) mg/L FEU Sodium (137-145) mmol/L Glucose (74-99) mg/dL POC Glucose (mg/dL) 139 H 143 H (75-99) mg/dL Calcium (8.4-10.2) mg/dL AST (17-59) U/L ALT (4-49) U/L Lactate Dehydrogenase (313-618) U/L C-Reactive Protein (<10.0) mg/L Total Protein (6.3-8.2) g/dL Albumin (3.5-5.0) g/dL 06/15/20 06/15/20 06/15/20 Range/Units 07:32 07:32 07:43 WBC (3.8-10.6) k/uL Lymphocytes # (1.0-4.8) k/uL D-Dimer 0.95 H (<0.60) mg/L FEU Sodium 136 L (137-145) mmol/L Glucose 133 H (74-99) mg/dL POC Glucose (mg/dL) 118 H (75-99) mg/dL Calcium 8.2 L (8.4-10.2) mg/dL AST 96 H (17-59) U/L ALT 67 H (4-49) U/L Lactate Dehydrogenase 2884 H (313-618) U/L C-Reactive Protein 59.4 H (<10.0) mg/L Total Protein 5.5 L (6.3-8.2) g/dL Albumin 3.0 L (3.5-5.0) g/dL Assessment and Plan Plan: 1 acute Covid 19 pneumonia with secondary shortness of breath. Patient was diagnosed on 06/08/2020. Symptoms started on 06/07/2020 the patient rapidly progressed and the patient is coming in with worsening shortness of breath and bilateral pneumonia and extensive consolidation 2 acute hypoxic respiratory failure currently on 100% nonrebreather facemask 3 shortness of breath secondary to above 4 elevated inflammatory markers secondary to above 5 lymphopenia secondary to above 6 mild hyponatremia, normalized Plan The patient on the percent nonrebreather facemask and monitor the oxygenation very closely The patient 100% nonrebreather facemask Chest x-rays showing probable some interval worsening Is not a candidate for Remdesivir due to high oxygen requirements Continue Decadron 6 mg IV every 24 hours Transfused with a unit convalescent plasma Received Tocilizumab 634 mg IV 1 Monitor inflammatory markers, LDH level is still elevated There is a concern that he may get weak. We are going to order Ensure shakes. IV fluids Multivitamins We'll continue to follow.
--- NOTE | 2020-06-15 11:18 | P.PN ---
Subjective Progress Note Date: 06/15/20 HISTORY OF PRESENT ILLNESS This is a 55-year-old male patient of Dr. Maxwell Alexander with significant past medical history. Patient states he started having symptoms on June 01 and was diagnosed with COVID-19 on June 08. Patient symptoms or body aches and fatigue as well as cough with white sputum production, increasing shortness of breath and measured pulse ox at home which worsened. He complains of headache chills and nausea. Patient presented to [facility] emergency center for evaluation. Patient was afebrile, heart rate 101, blood pressure 114/75, pulse ox 86% on room air. WBC 6.4, hemoglobin 16.2, platelet count 153. D-dimer 0.84. AST 106, ALT 44, alkaline phosphatase 57, LDH 2547. CRP 150. Sodium 129, potassium 4.6, chloride 97, CO2 23, BUN 12 and creatinine 0.84. Blood sugar 114. Chest x-ray reveals extensive pulmonary infiltrates related to pneumonia and ARDS. CTA of the chest reveals no pulmonary embolism. Patchy areas of nodular consolidations in the bilateral lower lobes with groundglass consolidation of the peripheral of the bilateral upper lobes consistent with multifocal infection compatible with Covid pneumonia. No pleural effusions or pneumothorax. Patient has been seen by pulmonary medicine is not a candidate f or Remdesivir. Convalescent plasma has been ordered as well as Tocilizumab 1 dose. Patient is currently pulse ox 95% on 15 L nonrebreather. 06/15: Repeat chest x-ray reveals worsening infiltrates. Patient is currently on nonrebreather and nasal cannula with pulse ox of 89%. Patient states that he is not sleeping because of coughing. He continues to have cough, shortness of breath. Noted to be tachypneic. Patient states he is eating okay. Melatonin, Flonase and Tessalon Perles added. Patient has been afebrile, heart rate 87, respiratory rate 32, blood pressure 112/70. Repeat blood work reveals WBC 11.4, hemoglobin 15.4, platelet count 208. D-dimer 0.95. Sodium 136 other electroly jagdeep and renal function normal. Blood sugar 118. AST 96, ALT 67, alkaline phosphatase 70. LDH 2884. C-reactive protein 59.4. REVIEW OF SYSTEMS Constitutional: No fever, no chills, no night sweats. No weight change. Reports weakness, Reports fatigue or lethargy. No daytime sleepiness. EENT: Reports headache. No blurred vision or double vision, no loss of vision. No loss of Hearing, no ringing in the ears, no dizziness. No nasal drainage or congestion. No epistaxis. No sore throat. Lungs: Reports shortness of breath, reports cough, Reports sputum production. No wheezing. Cardiovascular: No chest pain, no lower extremity edema. No palpitations. No paroxysmal nocturnal dyspnea. No orthopnea. No lightheadedness or dizziness. No syncopal episodes. Abdominal: No abdominal pain. Reports nausea, no vomiting. No diarrhea. No constipation. No bloody or tarry stools reports loss of appetite. Genitourinary: No dysuria, increased frequency, urgency. No urinary retention. Musculoskeletal: Reports myalgias. No muscle weakness, no gait dysfunction, no frequent falls. No back pain. No neck pain. Integumentary: No wounds, no lesions. No rash or pruritus. No unusual bruising. Neurologic: No aphasia. No facial droop. No change in mentation. No head injury. No headache. No paralysis. No paresthesia. Psychiatric: No depression. No anxiety. No mood swings. Endocrine: No abnormal blood sugars. No weight change. PHYSICAL EXAMINATION Gen: This is a 55-year-old male. He is resting in bed appears to be in mild respiratory distress with nonrebreather and nasal cannula oxygen. HEENT: Head is atraumatic, normocephalic. Pupils equal, round. Sclerae is anicteric. NECK: Supple. No JVD. No lymphadenopathy. No thyromegaly. LUNGS: Crackles bilaterally. No wheezes. Mild accessory muscle usage, mild intercostal retractions. Patient is tachypneic. HEART: Regular rate and rhythm. No murmur. ABDOMEN: Soft. Bowel sounds are present. No masses. No tenderness. EXTREMITIES: No pedal edema. No calf tenderness. Dorsalis pedis +2 bilaterally. NEUROLOGICAL: Patient is awake, alert and oriented x3. Cranial nerves 2 through 12 are grossly intact. ASSESSMENT AND PLAN 1. Acute hypoxic respiratory failure secondary to Covid 19 pneumonia. Patient has been seen by pulmonary medicine status post Convalescent plasma and Tocilizumab 1 dose. Continue dexamethasone 6 mg every 24 hours, Lovenox 40 mg subcu daily, vitamins. 2. Elevated inflammatory markers secondary to Covid 19. Continue to monitor. 3. Mild hyponatremia. Continue IV fluids. 4. Elevated d-dimer. Acute pulmonary embolism has been ruled out by CTA. 5. Lymphocytopenia secondary to Covid 19. 6. GI prophylaxis. Protonix daily. 7. DVT prophylaxis. Lovenox. DISCHARGE PLAN Home. Impression and plan of care have been directed as dictated by the signing physician. Cathy Quintanilla nurse practitioner acting as scribe for signing physician. Objective - Vital Signs Vital signs: Vital Signs Temp 96.5 F L 06/15/20 07:45 Pulse 87 06/15/20 07:45 Resp 32 H 06/15/20 07:45 BP 112/70 06/15/20 07:45 Pulse Ox 88 L 06/15/20 07:45 Intake & Output 06/14/20 06/15/20 06/15/20 18:59 06:59 18:59 Intake Total 1134 1220 Balance 1134 1220 Intake: Intake, IV Titration 488 720 Amount Sodium Chloride 0.9% 1, 420 720 000 ml @ 60 mls/hr IV . [id number] [facility] Rx#:[id number] Tocilizumab 640 mg In 68 Sodium Chloride 0.9% 68 ml @ 100 mls/hr IV ONCE ONE Rx#:[id number] Blood Product 646 500 Ffp Convalescent Plasma 323 Cpd Unit [id number] Other: # Voids 2 # Bowel Movements 2 - Labs CBC & Chem 7: 06/15/20 07:32 06/15/20 07:32 Labs: Abnormal Lab Results - Last 24 Hours (Table) 06/14/20 06/14/20 06/14/20 Range/Units 10:20 10:20 10:20 WBC (3.8-10.6) k/uL Lymphocytes # 0.5 L (1.0-4.8) k/uL D-Dimer 0.78 H (<0.60) mg/L FEU Sodium 135 L (137-145) mmol/L Glucose 146 H (74-99) mg/dL POC Glucose (mg/dL) (75-99) mg/dL Calcium (8.4-10.2) mg/dL AST 90 H (17-59) U/L ALT 70 H (4-49) U/L Lactate Dehydrogenase 2347 H (313-618) U/L C-Reactive Protein 160.3 H (<10.0) mg/L Total Protein 5.7 L (6.3-8.2) g/dL Albumin 3.1 L (3.5-5.0) g/dL 06/14/20 06/14/20 06/15/20 Range/Units 17:04 20:36 07:32 WBC 11.4 H (3.8-10.6) k/uL Lymphocytes # (1.0-4.8) k/uL D-Dimer (<0.60) mg/L FEU Sodium (137-145) mmol/L Glucose (74-99) mg/dL POC Glucose (mg/dL) 139 H 143 H (75-99) mg/dL Calcium (8.4-10.2) mg/dL AST (17-59) U/L ALT (4-49) U/L Lactate Dehydrogenase (313-618) U/L C-Reactive Protein (<10.0) mg/L Total Protein (6.3-8.2) g/dL Albumin (3.5-5.0) g/dL 06/15/20 06/15/20 06/15/20 Range/Units 07:32 07:32 07:43 WBC (3.8-10.6) k/uL Lymphocytes # (1.0-4.8) k/uL D-Dimer 0.95 H (<0.60) mg/L FEU Sodium 136 L (137-145) mmol/L Glucose 133 H (74-99) mg/dL POC Glucose (mg/dL) 118 H (75-99) mg/dL Calcium 8.2 L (8.4-10.2) mg/dL AST 96 H (17-59) U/L ALT 67 H (4-49) U/L Lactate Dehydrogenase 2884 H (313-618) U/L C-Reactive Protein 59.4 H (<10.0) mg/L Total Protein 5.5 L (6.3-8.2) g/dL Albumin 3.0 L (3.5-5.0) g/dL
[2020-06-15 11:29] LABS: Glucose,Whole Blood 133 mg/dL (75-99)
[2020-06-15 16:33] LABS: Glucose,Whole Blood 144 mg/dL (75-99)
[2020-06-15 17:49] LABS: Ferritin 2755.6 ng/mL (22.0-322.0)
[2020-06-15 20:30] LABS: Glucose,Whole Blood 161 mg/dL (75-99)
[2020-06-16] MEDS: MELATONIN 3 MG TABLET PO SCH ×2 (00:09→21:04)
[2020-06-16] MEDS: SODIUM CHLORIDE 0.9% 1,000 ML IV SCH ×2 (05:36→21:06)
[2020-06-16 08:09] LABS: Glucose,Whole Blood 134 mg/dL (75-99)
[2020-06-16] MEDS: INSULIN ASPART (NovoLOG) 100 UNIT/ML VIAL SQ SCH ×4 (08:33→21:04)
[2020-06-16] MEDS: ASCORBIC ACID 500 MG TAB PO SCH (08:34)
[2020-06-16] MEDS: ZINC SULFATE 220 MG CAP PO SCH (08:35)
[2020-06-16] MEDS: CHOLECALCIFEROL 25 MCG (1000 IU) TABLET PO SCH (08:35)
[2020-06-16] MEDS: ENOXAPARIN 40 MG/0.4 ML SYRINGE SQ SCH ×2 (08:35→21:04)
[2020-06-16] MEDS: dexAMETHasone 2 MG TAB PO SCH (08:35)
[2020-06-16] MEDS: BENZONATATE 100 MG CAP PO SCH ×3 (08:35→21:04)
[2020-06-16] MEDS: PANTOPRAZOLE 40 MG TABLET PO SCH (08:35)
--- NOTE | 2020-06-16 09:17 | XR ---
EXAMINATION TYPE: XR chest 1V portable DATE OF EXAM: 06/16/2020 COMPARISON: 06/15/2020 INDICATION: Covid, short of breath TECHNIQUE: Single frontal view of the chest is obtained. FINDINGS: The heart size is normal. The pulmonary vasculature is normal. Patchy bilateral infiltrates are present. Findings are improving. IMPRESSION: 1. Improving bilateral lung infiltrates.
--- NOTE | 2020-06-16 10:23 | P.PN ---
Subjective Progress Note Date: 06/16/20 55-year-old female patient presented with shortness of breath and the patient h ad a COVID 19 associated pneumonia. The patient was diagnosed having COVID 19 likely 5 days ago. Patient symptoms as well as body ache and fatigue and subsequently fever and cough and shortness of breath. Her pulse ox at home and drop down to the 80s and for that reason the patient came into the hospital. She also had some nausea and emesis and some mild diarrhea. She was taking Tylenol for her fever in addition to Motrin. In the emergency, the patient's pulse ox was 86% on room air and she was tachycardic, sinus tachycardia. Her blood work showed an LDH level of 2547, CRP of 150, d-dimer of 0.8. Sodium level was 129. The patient had lymphopenia. The chest x-ray showed extensive bilateral consolidations most on the peripheries and spreading the upper lobes. A CT angiogram of the chest showed no evidence of any pulmonary embolism. The patient had patchy areas of no other consolidation in the lower lobes bilaterally along with some areas of groundglass and consolidations bilaterally. No evidence of any pleural effusion. No other major abnormalities. Patient is currently on oxygen and he is on 15 L of oxygen by nonrebreather facemask. He is also placed on Decadron 6 mg by mouth daily, Lovenox 40 mg subcu daily. At this point in time, the patient is on 15 L nonrebreather facemask. He has labored breathing even while talking and sometimes even at rest. 06/15/2020, the patient remains in the 100% nonrebreather facemask. Repeat chest x-ray was done and was reported that the patient has diffuse interstitial infiltrates bilaterally with probably some interval worsening. Clinically however, the patient is feeling better. He also was started on a combination of steroids and the patient received convalescent plasma 1 and he also received a dose of Actemra 140 mg IV. His blood work from today is showing a d-dimer of 0.95, LDH level is up to 2884 and the CRP level is down to 59.4. On today's evaluation of 06/16/2020 the patient is being seen for a follow-up. The patient is on high flow oxygen at 15 L through 100% nonrebreather facemask. He is also on 13 L per nasal cannula. He is feeling okay. His repeat chest x- ray showing stable bilateral pulmonary infiltrates. His pulse ox is ranging in the high 80s low 90s range. The patient desaturates easily with activity and talking. No new labs are available from today. The patient also received re ceived convalescent plasma 1 and he also received a dose of Actemra 640 mg IV. Objective - Vital Signs Vital signs: Vital Signs Temp 96.5 F L 06/16/20 08:00 Pulse 79 06/16/20 08:00 Resp 16 06/16/20 08:00 BP 120/66 06/16/20 08:00 Pulse Ox 90 L 06/16/20 08:15 Intake & Output 06/15/20 06/16/20 06/16/20 18:59 06:59 18:59 Intake Total 1500 720 Balance 1500 720 Intake: Intake, IV Titration 700 720 Amount Sodium Chloride 0.9% 1, 700 720 000 ml @ 60 mls/hr IV . [id number] [facility] Rx#:[id number] Oral 800 Other: # Voids 3 2 # Bowel Movements 2 - Exam Gen. appearance the patient is in mild degree of respiratory distress currently on 100% nonrebreather facemask Head exam was generally normal. There was no scleral icterus or corneal arcus. Mucous membranes were moist. Neck was supple and without jugular venous distension, thyromegaly, or carotid bruits. Carotids were easily palpable bilaterally. There was no adenopathy. Lungs sounds reveal crackles in the mid and lower lung driver bilaterally and the patient is extensive crackling Cardiac exam revealed the PMI to be normally situated and sized. The rhythm was regular and no extrasystoles were noted during several minutes of auscultation. The first and second heart sounds were normal and physiologic splitting of the second heart sound was noted. There were no murmurs, rubs, clicks, or gallops. Abdominal exam revealed normal bowel sounds. The abdomen was soft, non-tender, and without masses, organomegaly, or appreciable enlargement of the abdominal aorta. Examination of the extremities revealed easily palpable radial, femoral and pedal pulses. There was no cyanosis, clubbing or edema. Examination of the skin revealed no evidence of significant rashes, suspicious appearing nevi or other concerning lesions. Neurologically, the patient is awake and alert and the patient - Labs CBC & Chem 7: 06/15/20 07:32 06/15/20 07:32 Labs: Abnormal Lab Results - Last 24 Hours (Table) 06/15/20 06/15/20 06/15/20 Range/Units 07:32 11:18 16:31 POC Glucose (mg/dL) 133 H 144 H (75-99) mg/dL Ferritin 2755.6 H (22.0-322.0) ng/mL 06/15/20 06/16/20 Range/Units 20:29 08:07 POC Glucose (mg/dL) 161 H 134 H (75-99) mg/dL Ferritin (22.0-322.0) ng/mL Assessment and Plan Plan: 1 acute Covid 19 pneumonia with secondary shortness of breath. Patient was diagnosed on 06/08/2020. Symptoms started on 06/07/2020 the patient rapidly progressed and the patient is coming in with worsening shortness of breath and bilateral pneumonia and extensive consolidation. The chest x-ray from today showing some limited improvement in the back support infiltrates. Currently is on 100% nonrebreather along with a 13 L nasal cannula. He feels that his condition essentially stable for now 2 acute hypoxic respiratory failure currently on 100% nonrebreather facemask, along with 13 L nasal cannula 3 shortness of breath secondary to above 4 elevated inflammatory markers secondary to above 5 lymphopenia secondary to above 6 mild hyponatremia, normalized Plan The patient on the percent nonrebreather facemask and along with 13 L nasal cannula Chest x-rays from today was noted Is not a candidate for Remdesivir due to high oxygen requirements Continue Decadron 6 mg IV every 24 hours Transfused with a unit convalescent plasma Received Tocilizumab 634 mg IV 1 Monitor inflammatory markers, LDH level is still elevated There is a concern that he may get weak. We are going to order Ensure shakes. IV fluids Multivitamins We'll continue to follow.
[2020-06-16 12:12] LABS: Glucose,Whole Blood 140 mg/dL (75-99)
[2020-06-16 12:27] LABS: African American GFR (CKD) >90 (>60 ml/min/1.73 sqM); Anion Gap 5 mmol/L; Blood Urea Nitrogen 25 mg/dL (9-20); Calcium 8.3 mg/dL (8.4-10.2); Carbon Dioxide 27 mmol/L (22-30); Chloride 102 mmol/L (98-107); Glucose 128 mg/dL (74-99); Non-African American GFR(CKD) >90 (>60 ml/min/1.73 sqM); Potassium 4.7 mmol/L (3.5-5.1); Sodium 134 mmol/L (137-145)
[2020-06-16 12:51] LABS: LDH 4245 U/L (313-618)
[2020-06-16 13:01] LABS: C Reactive Protein 22.4 mg/L (<10.0)
--- NOTE | 2020-06-16 14:26 | P.PN ---
Subjective Progress Note Date: 06/16/20 HISTORY OF PRESENT ILLNESS This is a 55-year-old male patient of Dr. Maxwell Alexander with significant past medical history. Patient states he started having symptoms on June 01 and was diagnosed with COVID-19 on June 08. Patient symptoms or body aches and fatigue as well as cough with white sputum production, increasing shortness of breath and measured pulse ox at home which worsened. He complains of headache chills and nausea. Patient presented to [facility] emergency center for evaluation. Patient was afebrile, heart rate 101, blood pressure 114/75, pulse ox 86% on room air. WBC 6.4, hemoglobin 16.2, platelet count 153. D-dimer 0.84. AST 106, ALT 44, alkaline phosphatase 57, LDH 2547. CRP 150. Sodium 129, potassium 4.6, chloride 97, CO2 23, BUN 12 and creatinine 0.84. Blood sugar 114. Chest x-ray reveals extensive pulmonary infiltrates related to pneumonia and ARDS. CTA of the chest reveals no pulmonary embolism. Patchy areas of nodular consolidations in the bilateral lower lobes with groundglass consolidation of the peripheral of the bilateral upper lobes consistent with multifocal infection compatible with Covid pneumonia. No pleural effusions or pneumothorax. Patient has been seen by pulmonary medicine is not a candidate f or Remdesivir. Convalescent plasma has been ordered as well as Tocilizumab 1 dose. Patient is currently pulse ox 95% on 15 L nonrebreather. 06/15: Repeat chest x-ray reveals worsening infiltrates. Patient is currently on nonrebreather and nasal cannula with pulse ox of 89%. Patient states that he is not sleeping because of coughing. He continues to have cough, shortness of breath. Noted to be tachypneic. Patient states he is eating okay. Melatonin, Flonase and Tessalon Perles added. Patient has been afebrile, heart rate 87, respiratory rate 32, blood pressure 112/70. Repeat blood work reveals WBC 11.4, hemoglobin 15.4, platelet count 208. D-dimer 0.95. Sodium 136 other electroly jagdeep and renal function normal. Blood sugar 118. AST 96, ALT 67, alkaline phosphatase 70. LDH 2884. C-reactive protein 59.4. 06/16: Patient's pulse ox is 90-92% on high flow nasal cannula at 13 L along with 100% nonrebreather. Patient was seen by Dr. Kern plan is to try and wean off 100% oxygen. Patient states that his breathing is stable today. He continues to have shortness of breath with minimal activity and cough. Patient started on mycelex noemi for thrush. He has been afebrile, heart rate 80, blood pressure 114/69. Repeat chest x-ray reveals improving bilateral lung infiltra jagdeep. Patient is continued on dexamethasone, Lovenox and vitamin supplements. REVIEW OF SYSTEMS Constitutional: No fever, no chills, no night sweats. No weight change. Rep orts weakness, Reports fatigue or lethargy. No daytime sleepiness. EENT: Reports headache. No blurred vision or double vision, no loss of vision. No loss of Hearing, no ringing in the ears, no dizziness. No nasal drainage or congestion. No epistaxis. No sore throat. Lungs: Reports shortness of breath, reports cough, Reports sputum production. No wheezing. Cardiovascular: No chest pain, no lower extremity edema. No palpitations. No paroxysmal nocturnal dyspnea. No orthopnea. No lightheadedness or dizziness. No syncopal episodes. Abdominal: No abdominal pain. Reports nausea, no vomiting. No diarrhea. No constipation. No bloody or tarry stools reports loss of appetite. Genitourinary: No dysuria, increased frequency, urgency. No urinary retention. Musculoskeletal: Reports myalgias. No muscle weakness, no gait dysfunction, no frequent falls. No back pain. No neck pain. Integumentary: No wounds, no lesions. No rash or pruritus. No unusual bruising. Neurologic: No aphasia. No facial droop. No change in mentation. No head injury. No headache. No paralysis. No paresthesia. Psychiatric: No depression. No anxiety. No mood swings. Endocrine: No abnormal blood sugars. No weight change. PHYSICAL EXAMINATION Gen: This is a 55-year-old male. He is resting in bed appears to be in mild respiratory distress with nonrebreather and nasal cannula oxygen. HEENT: Head is atraumatic, normocephalic. Pupils equal, round. Sclerae is anicte serena. NECK: Supple. No JVD. No lymphadenopathy. No thyromegaly. LUNGS: Crackles bilaterally. No wheezes. Mild accessory muscle usage, mild intercostal retractions. Patient is tachypneic. HEART: Regular rate and rhythm. No murmur. ABDOMEN: Soft. Bowel sounds are present. No masses. No tenderness. EXTREMITIES: No pedal edema. No calf tenderness. Dorsalis pedis +2 bilaterally. NEUROLOGICAL: Patient is awake, alert and oriented x3. Cranial nerves 2 through 12 are grossly intact. ASSESSMENT AND PLAN 1. Acute hypoxic respiratory failure secondary to Covid 19 pneumonia. Patient has been seen by pulmonary medicine status post Convalescent plasma and Tocilizumab 1 dose. Continue dexamethasone 6 mg every 24 hours, Lovenox 40 mg subcu twice daily, vitamins. Patient is currently on oxygen at 13 L high flow nasal cannula and 100% nonrebreather 2. Elevated inflammatory markers secondary to Covid 19. Continue to monitor. 3. Mild hyponatremia. Continue IV fluids. 4. Elevated d-dimer. Acute pulmonary embolism has been ruled out by CTA. 5. Lymphocytopenia secondary to Covid 19. 6. Thrush. Patient started on Mycelex troches. 7. GI prophylaxis. Protonix daily. 8. DVT prophylaxis. Lovenox. DISCHARGE PLAN Home. Impression and plan of care have been directed as dictated by the signing physician. Cathy Quintanilla nurse practitioner acting as scribe for signing physician. Objective - Vital Signs Vital signs: Vital Signs Temp 97.7 F 06/16/20 03:58 Pulse 80 06/16/20 03:58 Resp 22 06/15/20 20:20 BP 114/69 06/16/20 03:58 Pulse Ox 90 L 06/16/20 08:15 Intake & Output 06/15/20 06/16/20 06/16/20 18:59 06:59 18:59 Intake Total 1500 720 Balance 1500 720 Intake: Intake, IV Titration 700 720 Amount Sodium Chloride 0.9% 1, 700 720 000 ml @ 60 mls/hr IV . [id number] [facility] Rx#:[id number] Oral 800 Other: # Voids 3 2 # Bowel Movements 2 - Labs CBC & Chem 7: 06/15/20 07:32 06/16/20 10:19 Labs: Abnormal Lab Results - Last 24 Hours (Table) 06/15/20 06/15/20 06/15/20 Range/Units 07:32 11:18 16:31 POC Glucose (mg/dL) 133 H 144 H (75-99) mg/dL Ferritin 2755.6 H (22.0-322.0) ng/mL 06/15/20 06/16/20 Range/Units 20:29 08:07 POC Glucose (mg/dL) 161 H 134 H (75-99) mg/dL Ferritin (22.0-322.0) ng/mL
--- NOTE | 2020-06-16 14:56 | XR ---
EXAMINATION TYPE: XR chest 1V portable DATE OF EXAM: 06/16/2020 COMPARISON: 06/16/2020 earlier exam INDICATION: shortness of breath TECHNIQUE: Single frontal view of the chest is obtained. FINDINGS: The heart size is normal. The pulmonary vasculature is normal. Mild diffuse increased lung markings are through the lung driver. Subcutaneous emphysema is present in the bilateral neck. Pneumomediastinum may be present. No pneumo thorax however is identified. IMPRESSION: 1. Interval development of subcutaneous emphysema within the bilateral neck. Some pneumomediastinum m ay be present as the source. Pneumothorax is identified. Follow-up is recommended. A [place] level critical message alert has been initiated for Suha Holder MD via the [employer] Critical Results System on 06/16/2020 2:54 PM. This message alert has been sent to Carmela Palacios via the preferences provided by the clinician for the receipt of Radiology Critical Findings. [employer] ID [id number].
[2020-06-16] MEDS: CLOTRIMAZOLE TROCHE 10 MG TROCHE MUCOUS MEM SCH ×3 (15:20→21:35)
[2020-06-16 16:54] LABS: Glucose,Whole Blood 172 mg/dL (75-99)
[2020-06-16 20:35] LABS: Glucose,Whole Blood 180 mg/dL (75-99)
--- NOTE | 2020-06-16 21:12 | XR ---
EXAMINATION: XR chest 1V DATE AND TIME: 06/16/2020 8:18 PM CLINICAL INDICATION: PHH; empheysema desat TECHNIQUE: Departmental protocol COMPARISON: 06/16/2020 2:42 PM FINDINGS: Since prior study the subcutaneous emphysema has prominently increased in its volume and spread. There is evidence suggesting pneumomediastinum, which can be confirmed with CT without contrast. There is no definite pneumothorax. However, in this setting there is limited sensitivity for the diag nosis of pneumothorax. The overall lung inflation pattern appears similar to the prior radiograph. Should characterization of the compartments of the chest the useful clinically, CT without contrast w ould be optimal. The cardiac silhouette is not enlarged. No acute bone or soft tissue findings are evident. IMPRESSION: Prominent interval increase in the subcutaneous emphysema pattern, with findings as discussed.
--- NOTE | 2020-06-16 22:13 | P.EN ---
A team Note, for puffiness of neck and shoulder skin 55 year old male admitted for COIVD penumonia ,requiring oxygen patient noticed in the afternoon , that his neck skin is feeling funny. now he feels his skin feels like air under it, and looks way more puffy. patient looks anxious , he is currently on non rebreather and nasal canula oxygen sat 90-93%, heart rate in the 90s. blood pressure systolic 130s lungs decrease breath sounds throughout more on lung bases, with inspiratory rales. heart normal s1 s2 RRR no leg edema , no tenderness to plapation alert, awake, oriented to time place and person and situation . anxious subcutaneous emphysema is palpable over neck and to of his shoulders bilaterally , and over the upper portion of his sternum. CXR stat repeated, showing worsening penumomediastinum in volume and spread compared to earlier from around 3 PM, no evidence of pneumothorax case discussed with ICU, patient will be transferred to the ICU for close m onitoring and supportive care, if worsening clinical condition , chest tube will be considered. close monitor of vital sings and oxygen requirement . above recommendations and xray findings explained to the patient , questions answered 40 minutes were spent in critical care time in the care of this patient
[2020-06-17] MEDS ORDERED: SODIUM CHLORIDE 0.65% NASAL SPRAY 44 ML BTL NASAL PRN (03:00)
[2020-06-17] MEDS: ALPRAZolam 0.25 MG TAB PO PRN ×2 (03:10→23:22)
[2020-06-17 05:37] LABS: HCT 45.9 % (39.0-53.0); MCH 30.9 pg (25.0-35.0); MCV 88.5 fL (80.0-100.0); Mean Platelet Volume 8.1; Platelet Count 213 k/uL (150-450); RBC 5.18 m/uL (4.30-5.90); RDW 12.9 % (11.5-15.5); WBC 15.9 k/uL (3.8-10.6)
[2020-06-17 05:57] LABS: ALT 118 U/L (4-49); AST 103 U/L (17-59); African American GFR (CKD) >90 (>60 ml/min/1.73 sqM); Albumin 3.4 g/dL (3.5-5.0); Alkaline Phosphatase 125 U/L (38-126); Anion Gap 4 mmol/L; Blood Urea Nitrogen 25 mg/dL (9-20); C Reactive Protein 15.2 mg/L (<10.0); Calcium 8.5 mg/dL (8.4-10.2); Carbon Dioxide 28 mmol/L (22-30); Chloride 100 mmol/L (98-107); Creatine Kinase 533 U/L (55-170); Glucose 122 mg/dL (74-99); Non-African American GFR(CKD) >90 (>60 ml/min/1.73 sqM); Potassium 4.8 mmol/L (3.5-5.1); Sodium 132 mmol/L (137-145)
[2020-06-17] MEDS ORDERED: PROMETHAZINE 25 MG TAB PO PRN (07:08)
--- NOTE | 2020-06-17 07:08 | P.PN ---
Subjective Progress Note Date: 06/17/20 55-year-old female patient presented with shortness of breath and the patient h ad a COVID 19 associated pneumonia. The patient was diagnosed having COVID 19 likely 5 days ago. Patient symptoms as well as body ache and fatigue and subsequently fever and cough and shortness of breath. Her pulse ox at home and drop down to the 80s and for that reason the patient came into the hospital. She also had some nausea and emesis and some mild diarrhea. She was taking Tylenol for her fever in addition to Motrin. In the emergency, the patient's pulse ox was 86% on room air and she was tachycardic, sinus tachycardia. Her blood work showed an LDH level of 2547, CRP of 150, d-dimer of 0.8. Sodium level was 129. The patient had lymphopenia. The chest x-ray showed extensive bilateral consolidations most on the peripheries and spreading the upper lobes. A CT angiogram of the chest showed no evidence of any pulmonary embolism. The patient had patchy areas of no other consolidation in the lower lobes bilaterally along with some areas of groundglass and consolidations bilaterally. No evidence of any pleural effusion. No other major abnormalities. Patient is currently on oxygen and he is on 15 L of oxygen by nonrebreather facemask. He is also placed on Decadron 6 mg by mouth daily, Lovenox 40 mg subcu daily. At this point in time, the patient is on 15 L nonrebreather facemask. He has labored breathing even while talking and sometimes even at rest. 06/15/2020, the patient remains in the 100% nonrebreather facemask. Repeat chest x-ray was done and was reported that the patient has diffuse interstitial infiltrates bilaterally with probably some interval worsening. Clinically however, the patient is feeling better. He also was started on a combination of steroids and the patient received convalescent plasma 1 and he also received a dose of Actemra 140 mg IV. His blood work from today is showing a d-dimer of 0.95, LDH level is up to 2884 and the CRP level is down to 59.4. On today's evaluation of 06/16/2020 the patient is being seen for a follow-up. The patient is on high flow oxygen at 15 L through 100% nonrebreather facemask. He is also on 13 L per nasal cannula. He is feeling okay. His repeat chest x- ray showing stable bilateral pulmonary infiltrates. His pulse ox is ranging in the high 80s low 90s range. The patient desaturates easily with activity and talking. No new labs are available from today. The patient also received re ceived convalescent plasma 1 and he also received a dose of Actemra 640 mg IV. 06/17/2020 the patient is being seen in follow-up. I transferred the patient to the intensive care unit yesterday. At around 5 or 6 PM yesterday, the patient had increased cough and following that he felt some areas on the skin and sure enough he was developing pneumomediastinum and subcutaneous emphysema bilaterall y. CAT scan of the chest was repeated yesterday and the findings were consistent with normal mediastinum and saphenous emphysema bilaterally extending to his neck. His pulse ox dropped down to the high 70s 11 years and often spelled. Otherwise, when rested, his pulse ox is in the order of 88%. C urrently is on 15 L nasal cannula in addition to 100% nonrebreather facemask. D-dimer is at 17.6. LDH level is at 533. The patient remains on Decadron 6 mg orally and the patient is also on Lovenox 40 mg subcu every 12 hours. He is receiving IV fluids at the rate of 60 hour. He was given Tessalon Perles to suppress his cough. I'm going to add also promethazine for cough suppression. Is a bit anxious. He is comfortable. Slightly tachypneic he is not using his accessory muscles of breathing. He is subcutaneous emphysema is stable for now without any interval extension is face for the rest of the body. It's mainly involving the chest and the neck area. He is able to swallow.The patient also received received convalescent plasma 1 and he also received a dose of Actemra 640 mg IV. Objective - Vital Signs Vital signs: Vital Signs Temp 98.5 F 06/17/20 04:00 Pulse 85 06/17/20 05:00 Resp 26 H 06/17/20 05:00 BP 138/104 06/17/20 05:00 Pulse Ox 88 L 06/17/20 05:00 Intake & Output 06/16/20 06/17/20 06/17/20 18:59 06:59 18:59 Intake Total 700 1000 Output Total 400 Balance 700 600 Weight 75.5 kg Intake: Intake, IV Titration 700 Amount Sodium Chloride 0.9% 1, 700 000 ml @ 60 mls/hr IV . [id number] [facility] Rx#:[id number] Oral 1000 Output: Urine 400 Other: Voiding Method Urinal # Voids 2 0 # Bowel Movements 1 - Exam Gen. appearance the patient is in mild degree of respiratory distress currently on 100% nonrebreather facemask, the patient has subcutaneous emphysema involving the neck and upper chest area. He is having also frequent coughing spells. Head exam was generally normal. There was no scleral icterus or corneal arcus. Mucous membranes were moist. Neck was supple and without jugular venous distension, thyromegaly, or carotid bruits. Carotids were easily palpable bilaterally. There was no adenopathy. Lungs sounds reveal crackles in the mid and lower lung driver bilaterally and the patient is extensive crackling Cardiac exam revealed the PMI to be normally situated and sized. The rhythm was regular and no extrasystoles were noted during several minutes of auscultation. The first and second heart sounds were normal and physiologic splitting of the second heart sound was noted. There were no murmurs, rubs, clicks, or gallops. Abdominal exam revealed normal bowel sounds. The abdomen was soft, non-tender, and without masses, organomegaly, or appreciable enlargement of the abdominal aorta. Examination of the extremities revealed easily palpable radial, femoral and pedal pulses. There was no cyanosis, clubbing or edema. Examination of the skin revealed no evidence of significant rashes, suspicious appearing nevi or other concerning lesions. Neurologically, the patient is awake and alert and the patient - Labs CBC & Chem 7: 06/17/20 05:09 06/17/20 05:09 Labs: Abnormal Lab Results - Last 24 Hours (Table) 06/16/20 06/16/20 06/16/20 Range/Units 08:07 10:11 10:19 WBC (3.8-10.6) k/uL D-Dimer 18.93 H (<0.60) mg/L FEU Sodium 134 L (137-145) mmol/L BUN 25 H (9-20) mg/dL Glucose 128 H (74-99) mg/dL POC Glucose (mg/dL) 134 H (75-99) mg/dL Calcium 8.3 L (8.4-10.2) mg/dL AST (17-59) U/L ALT (4-49) U/L Lactate Dehydrogenase 4245 H (313-618) U/L Creatine Kinase (55-170) U/L C-Reactive Protein 22.4 H (<10.0) mg/L Total Protein (6.3-8.2) g/dL Albumin (3.5-5.0) g/dL 06/16/20 06/16/20 06/16/20 Range/Units 12:11 16:52 20:34 WBC (3.8-10.6) k/uL D-Dimer (<0.60) mg/L FEU Sodium (137-145) mmol/L BUN (9-20) mg/dL Glucose (74-99) mg/dL POC Glucose (mg/dL) 140 H 172 H 180 H (75-99) mg/dL Calcium (8.4-10.2) mg/dL AST (17-59) U/L ALT (4-49) U/L Lactate Dehydrogenase (313-618) U/L Creatine Kinase (55-170) U/L C-Reactive Protein (<10.0) mg/L Total Protein (6.3-8.2) g/dL Albumin (3.5-5.0) g/dL 06/17/20 06/17/20 06/17/20 Range/Units 05:09 05:09 05:09 WBC 15.9 H (3.8-10.6) k/uL D-Dimer 17.62 H (<0.60) mg/L FEU Sodium 132 L (137-145) mmol/L BUN 25 H (9-20) mg/dL Glucose 122 H (74-99) mg/dL POC Glucose (mg/dL) (75-99) mg/dL Calcium (8.4-10.2) mg/dL AST 103 H (17-59) U/L ALT 118 H (4-49) U/L Lactate Dehydrogenase (313-618) U/L Creatine Kinase 533 H (55-170) U/L C-Reactive Protein 15.2 H (<10.0) mg/L Total Protein 6.0 L (6.3-8.2) g/dL Albumin 3.4 L (3.5-5.0) g/dL Assessment and Plan Plan: 1 acute Covid 19 pneumonia with secondary shortness of breath. Patient was diagnosed on 06/08/2020. Symptoms started on 06/07/2020 the patient rapidly progressed and the patient is coming in with worsening shortness of breath and bilateral pneumonia and extensive consolidation. The chest x-ray from today showing some limited improvement in the back support infiltrates. Currently is on 100% nonrebreather along with a 15 L nasal cannula. The patient's overnight developed normal mediastinum and subcutaneous emphysema involving the chest and the neck area. He got transferred to the intensive care unit. There has been some mild interval worsening in his oxygenation. He continues to be on 15 L nasal cannula in addition to 100% nonrebreather facemask. He is currently in the intensive care unit. D-dimer is still elevated. The patient remains on Decadron. He is also on Lovenox 40 mg subcu every 12 hours. 2 acute hypoxic respiratory failure currently on 100% nonrebreather facemask, along with 15 L nasal cannula 3 shortness of breath secondary to above 4 elevated inflammatory markers secondary to above 5 lymphopenia secondary to above, recovered and the white cell count is at 15.9 6 mild hyponatremia, normalized Plan The patient on the percent nonrebreather facemask and along with 15 L nasal cannula Chest x-rays from today was noted and there is evidence of pneumomediastinum and subcutaneous emphysema Is not a candidate for Remdesivir due to high oxygen requirements We'll give this patient promethazine in addition to Tessalon Perles to suppress his cough. Continue Decadron 6 mg IV every 24 hours Transfused with a unit convalescent plasma Received Tocilizumab 634 mg IV 1 Monitor inflammatory markers, LDH level is still elevated Continue Lovenox IV fluids 0.9 at 60 mL an hour Multivitamins Family will be updated the patient lives with a girlfriend. He has a [employer] business We'll continue to follow. Condition is critical at this point, the patient will be monitored. Critical care time more than 30 minutes. Time with Patient: Greater than 30
[2020-06-17 07:14] LABS: LDH 3892 U/L (313-618)
[2020-06-17] MEDS: INSULIN ASPART (NovoLOG) 100 UNIT/ML VIAL SQ SCH ×4 (07:21→22:02)
[2020-06-17] MEDS: ENOXAPARIN 40 MG/0.4 ML SYRINGE SQ SCH ×2 (08:27→22:03)
[2020-06-17] MEDS: BENZONATATE 100 MG CAP PO SCH ×3 (08:29→22:04)
[2020-06-17] MEDS: ZINC SULFATE 220 MG CAP PO SCH (08:29)
[2020-06-17] MEDS: ASCORBIC ACID 500 MG TAB PO SCH (08:29)
[2020-06-17] MEDS: dexAMETHasone 2 MG TAB PO SCH (08:29)
[2020-06-17] MEDS: CHOLECALCIFEROL 25 MCG (1000 IU) TABLET PO SCH (08:29)
[2020-06-17] MEDS: PANTOPRAZOLE 40 MG TABLET PO SCH (08:31)
--- NOTE | 2020-06-17 11:41 | XR ---
EXAMINATION TYPE: XR chest 1V DATE OF EXAM: 06/17/2020 COMPARISON: 06/16/2020 HISTORY: 55-year-old male emphysema, desaturation. TECHNIQUE: Single frontal view of the chest is obtained. FINDINGS: Heart normal size. Hyperinflation. Interstitial opacities. Subcutaneous emphysema bilateral chest wal ls. These overlying air densities limit the evaluation. Small left apical pneumothorax unchanged at 1 .1 cm. Linear artifacts, likely external material projects over both medial lung regions. IMPRESSION: 1. Continued extensive bilateral subcutaneous emphysema. Underlying interstitial opacities are also s imilar. 2. Stable small 1.1 cm left apical pneumothorax.
[2020-06-17 12:01] LABS: Ferritin 2561.9 ng/mL (22.0-322.0)
[2020-06-17 12:03] LABS: Glucose,Whole Blood 146 mg/dL (75-99)
[2020-06-17] MEDS: CLOTRIMAZOLE TROCHE 10 MG TROCHE MUCOUS MEM SCH ×3 (12:36→22:03)
--- NOTE | 2020-06-17 13:00 | P.PN ---
<Cathy Quintanilla A - Last Filed: 06/17/20 12:50> Subjective Progress Note Date: 06/17/20 HISTORY OF PRESENT ILLNESS This is a 55-year-old male patient of Dr. Maxwell Alexander with significant past medical history. Patient states he started having symptoms on June 01 and was diagnosed with COVID-19 on June 08. Patient symptoms or body aches and fatigue as well as cough with white sputum production, increasing shortness of breath and measured pulse ox at home which worsened. He complains of headache chills and nausea. Patient presented to [facility] emergency center for ev aluation. Patient was afebrile, heart rate 101, blood pressure 114/75, pulse ox 86% on room air. WBC 6.4, hemoglobin 16.2, platelet count 153. D-dimer 0.84. AST 106, ALT 44, alkaline phosphatase 57, LDH 2547. CRP 150. Sodium 129, potassium 4.6, chloride 97, CO2 23, BUN 12 and creatinine 0.84. Blood sugar 114. Chest x-ray reveals extensive pulmonary infiltrates related to pneumonia and ARDS. CTA of the chest reveals no pulmonary embolism. Patchy areas of nodular consolidations in the bilateral lower lobes with groundglass consolidation of the peripheral of the bilateral upper lobes consistent with multifocal infection compatible with Covid pneumonia. No pleural effusions or pneumothorax. Patient has been seen by pulmonary medicine is not a candidate for Remdesivir. Convalescent plasma has been ordered as well as Tocilizumab 1 dose. Patient is currently pulse ox 95% on 15 L nonrebreather. 06/15: Repeat chest x-ray reveals worsening infiltrates. Patient is currently on nonrebreather and nasal cannula with pulse ox of 89%. Patient states that he is not sleeping because of coughing. He continues to have cough, shortness of breath. Noted to be tachypneic. Patient states he is eating okay. Melatonin, Flonase and Tessalon Perles added. Patient has been afebrile, heart rate 87, respiratory rate 32, blood pressure 112/70. Repeat blood work reveals WBC 11.4, hemoglobin 15.4, platelet count 208. D-dimer 0.95. Sodium 136 other electrolytes and renal function normal. Blood sugar 118. AST 96, ALT 67, alkaline phosphatase 70. LDH 2884. C-reactive protein 59.4. 06/16: Patient's pulse ox is 90-92% on high flow nasal cannula at 13 L along with 100% nonrebreather. Patient was seen by Dr. Kern plan is to try and wean off 100% oxygen. Patient states that his breathing is stable today. He continues to have shortness of breath with minimal activity and cough. Patient started on mycelex noemi for thrush. He has been afebrile, heart rate 80, blood pressure 114/69. Repeat chest x-ray reveals improving bilateral lung infiltrates. Patient is continued on dexamethasone, Lovenox and vitamin supplements. 06/17: Yesterday afternoon, received call the patient had subcutaneous emphysema that was new and stat chest x-ray was ordered. This revealed interval development of subcutaneous emphysema within the bilateral neck. Some pneumo mediastinum may be present as the source. Pneumothorax is identified. This was reviewed by Dr. Kern at the time. Last evening at 2200, A-Team was called for puffiness of the neck and shoulder skin. Repeat chest x-ray revealed prominent interval increase in subcutaneous emphysema pattern. Patient was transferred to the intensive care unit. Patient has been seen in the intensive care unit today. He remains on 15 L high flow nasal cannula in addition to 100% nonrebreather facemask. D-dimer is 17.6, LDH 533. Patient remains on Decadron, Lovenox and supplements. Promethazine was added for cough suppression. Subcutaneous emphysema is stable. REVIEW OF SYSTEMS Constitutional: No fever, no chills, no night sweats. No weight change. Reports weakness, Reports fatigue or lethargy. No daytime sleepiness. EENT: Reports headache. No blurred vision or double vision, no loss of vision. No loss of Hearing, no ringing in the ears, no dizziness. No nasal drainage or congestion. No epistaxis. No sore throat. Lungs: Reports shortness of breath, reports cough, Reports sputum production. No wheezing. Cardiovascular: No chest pain, no lower extremity edema. No palpitations. No paroxysmal nocturnal dyspnea. No orthopnea. No lightheadedness or dizziness. No syncopal episodes. Abdominal: No abdominal pain. Reports nausea, no vomiting. No diarrhea. No constipation. No bloody or tarry stools reports loss of appetite. Genitourinary: No dysuria, increased frequency, urgency. No urinary retention. Musculoskeletal: Reports myalgias. No muscle weakness, no gait dysfunction, no frequent falls. No back pain. No neck pain. Integumentary: No wounds, no lesions. No rash or pruritus. No unusual bruising. + Subcutaneous emphysema Neurologic: No aphasia. No facial droop. No change in mentation. No head injury. No headache. No paralysis. No paresthesia. Psychiatric: No depression. Reports anxiety. No mood swings. Endocrine: No abnormal blood sugars. No weight change. PHYSICAL EXAMINATION Gen: This is a 55-year-old male. He is resting in bed appears to be in mild respiratory distress with nonrebreather and nasal cannula oxygen. HEENT: Head is atraumatic, normocephalic. Pupils equal, round. Sclerae is anicteric. NECK: Supple. No JVD. No lymphadenopathy. No thyromegaly. Subcutaneous emphysema. LUNGS: Crackles bilaterally. No wheezes. Mild accessory muscle usage, mild intercostal retractions. Patient is tachypneic. HEART: Regular rate and rhythm. No murmur. ABDOMEN: Soft. Bowel sounds are present. No masses. No tenderness. EXTREMITIES: No pedal edema. No calf tenderness. Dorsalis pedis +2 bilaterally. NEUROLOGICAL: Patient is awake, alert and oriented x3. Cranial nerves 2 through 12 are grossly intact. ASSESSMENT AND PLAN 1. Acute hypoxic respiratory failure secondary to Covid 19 pneumonia. Patient has been seen by pulmonary medicine status post Convalescent plasma and To cilizumab 1 dose. Continue dexamethasone 6 mg every 24 hours, Lovenox 40 mg subcu twice daily, vitamins. Patient is currently on oxygen at 153 L high flow nasal cannula and 100% nonrebreather 2. Elevated inflammatory markers secondary to Covid 19. Continue to monitor. 3. Mild hyponatremia. Continue IV fluids. 4. Elevated d-dimer. Acute pulmonary embolism has been ruled out by CTA. 5. Lymphocytopenia secondary to Covid 19. 6. Thrush. Patient started on Mycelex troches. 7. Subcutaneous emphysema, stable. 8. GI prophylaxis. Protonix daily. 9. DVT prophylaxis. Lovenox. DISCHARGE PLAN Home. Impression and plan of care have been directed as dictated by the signing physician. Cathy Quintanilla nurse practitioner acting as scribe for signing physician. Objective - Vital Signs Vital signs: Vital Signs Temp 98.1 F 04/16/21 08:00 Pulse 76 06/17/20 09:00 Resp 31 H 06/17/20 09:00 BP 132/90 06/17/20 09:00 Pulse Ox 86 L 06/17/20 09:00 Intake & Output 06/16/20 06/17/20 06/17/20 18:59 06:59 18:59 Intake Total 700 1000 60 Output Total 400 0 Balance 700 600 60 Weight 75.5 kg Intake: IV 60 Sodium Chloride 0.9% 1, 60 000 ml @ 60 mls/hr IV . [id number] [facility] Rx#:[id number] Intake, IV Titration 700 Amount Sodium Chloride 0.9% 1, 700 000 ml @ 60 mls/hr IV . [id number] [facility] Rx#:[id number] Oral 1000 Output: Urine 400 0 Other: Voiding Method Urinal # Voids 2 0 # Bowel Movements 1 - Labs CBC & Chem 7: 06/17/20 05:09 06/17/20 05:09 Labs: Abnormal Lab Results - Last 24 Hours (Table) 06/16/20 06/16/20 06/16/20 Range/Units 10:11 10:19 12:11 WBC (3.8-10.6) k/uL D-Dimer 18.93 H (<0.60) mg/L FEU Sodium 134 L (137-145) mmol/L BUN 25 H (9-20) mg/dL Glucose 128 H (74-99) mg/dL POC Glucose (mg/dL) 140 H (75-99) mg/dL Calcium 8.3 L (8.4-10.2) mg/dL AST (17-59) U/L ALT (4-49) U/L Lactate Dehydrogenase 4245 H (313-618) U/L Creatine Kinase (55-170) U/L C-Reactive Protein 22.4 H (<10.0) mg/L Total Protein (6.3-8.2) g/dL Albumin (3.5-5.0) g/dL 06/16/20 06/16/20 06/17/20 Range/Units 16:52 20:34 05:09 WBC 15.9 H (3.8-10.6) k/uL D-Dimer (<0.60) mg/L FEU Sodium (137-145) mmol/L BUN (9-20) mg/dL Glucose (74-99) mg/dL POC Glucose (mg/dL) 172 H 180 H (75-99) mg/dL Calcium (8.4-10.2) mg/dL AST (17-59) U/L ALT (4-49) U/L Lactate Dehydrogenase (313-618) U/L Creatine Kinase (55-170) U/L C-Reactive Protein (<10.0) mg/L Total Protein (6.3-8.2) g/dL Albumin (3.5-5.0) g/dL 06/17/20 06/17/20 Range/Units 05:09 05:09 WBC (3.8-10.6) k/uL D-Dimer 17.62 H (<0.60) mg/L FEU Sodium 132 L (137-145) mmol/L BUN 25 H (9-20) mg/dL Glucose 122 H (74-99) mg/dL POC Glucose (mg/dL) (75-99) mg/dL Calcium (8.4-10.2) mg/dL AST 103 H (17-59) U/L ALT 118 H (4-49) U/L Lactate Dehydrogenase 3892 H (313-618) U/L Creatine Kinase 533 H (55-170) U/L C-Reactive Protein 15.2 H (<10.0) mg/L Total Protein 6.0 L (6.3-8.2) g/dL Albumin 3.4 L (3.5-5.0) g/dL <Suha Holder - Last Filed: 06/24/20 13:17> Objective - Vital Signs Vital signs: Vital Signs Temp 99.4 F 06/24/20 12:00 Pulse 114 H 06/24/20 12:00 Resp 34 H 06/24/20 12:00 BP 140/72 06/24/20 09:00 Pulse Ox 87 L 06/24/20 12:00 Intake & Output 06/23/20 06/24/20 06/24/20 18:59 06:59 18:59 Intake Total 6313.635 2086.961 1022.488 Output Total 1025 975 630 Balance 573.787 586.961 392.488 Weight 76.5 kg 76.5 kg Intake: IV 594 408 510 Cefepime 2 gm In Sodium 200 100 100 Chloride 0.9% 100 ml @ 25 mls/hr IVPB Q8HR [facility] Rx# :[id number] Dextrose 5% in Water 1, 355 275 125 000 ml @ 25 mls/hr IV . Q24H [facility] with Sodium Bicarb (1 Meq/ml) 150 ml Rx#:[id number] Vancomycin 1,500 mg In 250 Sodium Chloride 0.9% 250 ml @ 125 mls/hr IVPB Q8H [facility] Rx#:[id number] pressure bag 39 33 35 Intake, IV Titration 936.787 876.961 340.488 Amount Cisatracurium 200 mg In 231.871 81.439 Sodium Chloride 0.9% 180 ml @ 1 MCG/KG/MIN 3.81 mls/hr IV .Q24H [facility] Rx#: [id number] Clevidipine Butyrate 25 152.035 176.533 50 mg In Empty Bag 1 bag @ 1 MG/HR 2 mls/hr IV .Q24H [facility] Rx#:[id number] fentaNYL (PF). 1,000 mcg 214.301 234.949 90.488 In Sodium Chloride 0.9% 80 ml @ Per Protocol IV . Q0M [facility] Rx#:[id number] propofoL 1,000 mg In 338.58 384.04 200 Empty Bag 1 bag @ Titrate IV .Q0M [facility] Rx#: [id number] Tube Feeding 68 187 112 Other 90 60 Output: Chest Tube Drainage 80 100 Chest Tube Left 30 25 Chest Tube Right 50 75 Urine 945 975 530 Other: Voiding Method Indwelling Catheter Indwelling Catheter Indwelling Catheter ABP, PAP, CO, CI - Last Documented Arterial Blood Pressure 126/63 - Labs CBC & Chem 7: 06/24/20 04:00 06/24/20 04:00 Labs: Abnormal Lab Results - Last 24 Hours (Table) 06/23/20 06/24/20 06/24/20 Range/Units 17:43 00:06 04:00 WBC 21.7 H (3.8-10.6) k/uL Neutrophils # 20.3 H (1.3-7.7) k/uL Lymphocytes # 0.5 L (1.0-4.8) k/uL D-Dimer (<0.60) mg/L FEU ABG pCO2 (35-45) mmHg ABG pO2 (83-108) mmHg ABG HCO3 (21-25) mmol/L ABG Total CO2 (19-24) mmol/L Potassium (3.5-5.1) mmol/L Chloride (98-107) mmol/L Carbon Dioxide (22-30) mmol/L BUN (9-20) mg/dL Creatinine (0.66-1.25) mg/dL Glucose (74-99) mg/dL POC Glucose (mg/dL) 204 H 143 H (75-99) mg/dL AST (17-59) U/L ALT (4-49) U/L Alkaline Phosphatase (38-126) U/L Lactate Dehydrogenase (313-618) U/L C-Reactive Protein (<1.0) mg/dL Total Protein (6.3-8.2) g/dL Albumin (3.5-5.0) g/dL 06/24/20 06/24/20 06/24/20 Range/Units 04:00 04:00 04:47 WBC (3.8-10.6) k/uL Neutrophils # (1.3-7.7) k/uL Lymphocytes # (1.0-4.8) k/uL D-Dimer 3.96 H (<0.60) mg/L FEU ABG pCO2 83 H* (35-45) mmHg ABG pO2 75 L (83-108) mmHg ABG HCO3 51 H* (21-25) mmol/L ABG Total CO2 53 H (19-24) mmol/L Potassium 5.4 H (3.5-5.1) mmol/L Chloride 96 L (98-107) mmol/L Carbon Dioxide 48 H* (22-30) mmol/L BUN 48 H (9-20) mg/dL Creatinine 0.60 L (0.66-1.25) mg/dL Glucose 155 H (74-99) mg/dL POC Glucose (mg/dL) (75-99) mg/dL AST 90 H (17-59) U/L ALT 105 H (4-49) U/L Alkaline Phosphatase 230 H (38-126) U/L Lactate Dehydrogenase 2733 H (313-618) U/L C-Reactive Protein 4.7 H (<1.0) mg/dL Total Protein 5.6 L (6.3-8.2) g/dL Albumin 3.0 L (3.5-5.0) g/dL 06/24/20 06/24/20 Range/Units 05:47 11:56 WBC (3.8-10.6) k/uL Neutrophils # (1.3-7.7) k/uL Lymphocytes # (1.0-4.8) k/uL D-Dimer (<0.60) mg/L FEU ABG pCO2 (35-45) mmHg ABG pO2 (83-108) mmHg ABG HCO3 (21-25) mmol/L ABG Total CO2 (19-24) mmol/L Potassium (3.5-5.1) mmol/L Chloride (98-107) mmol/L Carbon Dioxide (22-30) mmol/L BUN (9-20) mg/dL Creatinine (0.66-1.25) mg/dL Glucose (74-99) mg/dL POC Glucose (mg/dL) 145 H 178 H (75-99) mg/dL AST (17-59) U/L ALT (4-49) U/L Alkaline Phosphatase (38-126) U/L Lactate Dehydrogenase (313-618) U/L C-Reactive Protein (<1.0) mg/dL Total Protein (6.3-8.2) g/dL Albumin (3.5-5.0) g/dL Microbiology - Last 24 Hours (Table) 06/21/20 21:50 Gram Stain - Preliminary Sputum Sputum Culture - Preliminary Presumptive Staph aureus Moraxella(branhamella) catarra 06/20/20 16:17 Gram Stain - Final Sputum Sputum Culture - Final
[2020-06-17] MEDS: SODIUM CHLORIDE 0.9% 1,000 ML IV SCH (13:38)
[2020-06-17 17:18] LABS: Glucose,Whole Blood 156 mg/dL (75-99)
[2020-06-17 21:33] LABS: Glucose,Whole Blood 147 mg/dL (75-99)
[2020-06-17] MEDS: MELATONIN 3 MG TABLET PO SCH (22:00)
--- NOTE | 2020-06-18 01:25 | XR ---
EXAM: XR Chest, 1 View CLINICAL HISTORY: ITS.REASON XR Reason: increased resp distress TECHNIQUE: Frontal view of the chest. COMPARISON: No relevant prior studies available. FINDINGS: Lungs: Unchanged diffuse bilateral reticular opacities. Pleural space: Decreased left apical pneumothorax measuring up to 5 mm in thickness. Heart: Unremarkable. No cardiomegaly. Mediastinum: Unremarkable. Bones/joints: Unremarkable. Extensive subcutaneous edema. IMPRESSION: 1. Decreased left apical pneumothorax measuring up to 5 mm in thickness. 2. Extensive subcutaneous edema. 3. Unchanged diffuse bilateral reticular opacities.
[2020-06-18 04:16] LABS: Basophils # (A) 0.1 k/uL (0-0.2); Basophils % (A) 0 %; Eosinophils # (A) 0.1 k/uL (0-0.7); Eosinophils % (A) 0 %; HCT 46.7 % (39.0-53.0); HGB 16.4 gm/dL (13.0-17.5); Lymphocytes % (A) 5 %; MCH 30.8 pg (25.0-35.0); MCHC 35.1 g/dL (31.0-37.0); MCV 87.9 fL (80.0-100.0); Mean Platelet Volume 8.1; Monocytes # (A) 0.9 k/uL (0-1.0); Monocytes % (A) 4 %; Neutrophils # (A) 17.5 k/uL (1.3-7.7); Neutrophils % (A) 89 %; Platelet Count 163 k/uL (150-450); RBC 5.32 m/uL (4.30-5.90); RDW 12.7 % (11.5-15.5); WBC 19.7 k/uL (3.8-10.6)
[2020-06-18 04:54] LABS: ALT 111 U/L (4-49); African American GFR (CKD) >90 (>60 ml/min/1.73 sqM); Albumin 3.4 g/dL (3.5-5.0); Anion Gap 7 mmol/L; Blood Urea Nitrogen 25 mg/dL (9-20); C Reactive Protein 1.1 mg/dL (<1.0); Calcium 8.5 mg/dL (8.4-10.2); Carbon Dioxide 24 mmol/L (22-30); Chloride 100 mmol/L (98-107); Creatine Kinase 456 U/L (55-170); Glucose 105 mg/dL (74-99); Non-African American GFR(CKD) >90 (>60 ml/min/1.73 sqM); Sodium 131 mmol/L (137-145); Total Bilirubin 1.2 mg/dL (0.2-1.3); Total Protein 6.1 g/dL (6.3-8.2)
[2020-06-18 05:26] LABS: AST 102 U/L (17-59); Alkaline Phosphatase 169 U/L (38-126); Potassium 4.9 mmol/L (3.5-5.1)
--- NOTE | 2020-06-18 06:45 | P.PN ---
Subjective Progress Note Date: 06/18/20 55-year-old male patient presented with shortness of breath and the patient had a COVID 19 associated pneumonia. The patient was diagnosed having COVID 19 likely 5 days ago. Patient symptoms as well as body ache and fatigue and subsequently fever and cough and shortness of breath. Her pulse ox at home and drop down to the 80s and for that reason the patient came into the hospital. She also had some nausea and emesis and some mild diarrhea. She was taking Tylenol for her fever in addition to Motrin. In the emergency, the patient's pulse ox was 86% on room air and she was tachycardic, sinus tachycardia. Her blood work showed an LDH level of 2547, CRP of 150, d-dimer of 0.8. Sodium level was 129. The patient had lymphopenia. The chest x-ray showed extensive bilateral consolidations most on the peripheries and spreading the upper lobes. A CT angiogram of the chest showed no evidence of any pulmonary embolism. The patient had patchy areas of no other consolidation in the lower lobes bilaterally along with some areas of groundglass and consolidations bilaterally. No evidence of any pleural effusion. No other major abnormalities. Patient is currently on oxygen and he is on 15 L of oxygen by nonrebreather facemask. He is also placed on Decadron 6 mg by mouth daily, Lovenox 40 mg subcu daily. At this point in time, the patient is on 15 L nonrebreather facemask. He has labored breathing even while talking and sometimes even at rest. 06/15/2020, the patient remains in the 100% nonrebreather facemask. Repeat chest x-ray was done and was reported that the patient has diffuse interstitial infiltrates bilaterally with probably some interval worsening. Clinically however, the patient is feeling better. He also was started on a combination of steroids and the patient received convalescent plasma 1 and he also received a dose of Actemra 140 mg IV. His blood work from today is showing a d-dimer of 0.95, LDH level is up to 2884 and the CRP level is down to 59.4. On today's evaluation of 06/16/2020 the patient is being seen for a follow-up. The patient is on high flow oxygen at 15 L through 100% nonrebreather facemask. He is also on 13 L per nasal cannula. He is feeling okay. His repeat chest x- ray showing stable bilateral pulmonary infiltrates. His pulse ox is ranging in the high 80s low 90s range. The patient desaturates easily with activity and talking. No new labs are available from today. The patient also received rece ived convalescent plasma 1 and he also received a dose of Actemra 640 mg IV. 06/17/2020 the patient is being seen in follow-up. I transferred the patient to the intensive care unit yesterday. At around 5 or 6 PM yesterday, the patient had increased cough and following that he felt some areas on the skin and sure enough he was developing pneumomediastinum and subcutaneous emphysema bilaterally. CAT scan of the chest was repeated yesterday and the findings were consistent with normal mediastinum and saphenous emphysema bilaterally extending to his neck. His pulse ox dropped down to the high 70s 11 years and often spelled. Otherwise, when rested, his pulse ox is in the order of 88%. Cur rently is on 15 L nasal cannula in addition to 100% nonrebreather facemask. D- dimer is at 17.6. LDH level is at 533. The patient remains on Decadron 6 mg orally and the patient is also on Lovenox 40 mg subcu every 12 hours. He is receiving IV fluids at the rate of 60 hour. He was given Tessalon Perles to suppress his cough. I'm going to add also promethazine for cough suppression. Is a bit anxious. He is comfortable. Slightly tachypneic he is not using his accessory muscles of breathing. He is subcutaneous emphysema is stable for now without any interval extension is face for the rest of the body. It's mainly involving the chest and the neck area. He is able to swallow.The patient also received received convalescent plasma 1 and he also received a dose of Actemra 640 mg IV. 06/18/2020, the patient is having some worsening in the subcutaneous emphysema. This is clinically on his examination and is also noted on the chest x-ray. There are also very tiny bilateral apical pneumothoraces seen on the chest x- ray. Meanwhile, the patient is currently on Airvo 60 Liters with an FiO2 of 90% and 100% nonrebreather on top. He is short of breath even at rest. He desaturates easily with cough and and moving. Currently is resting comfortably in bed. He is using incentive spirometer. He is quite anxious. At the same time, his inflammatory markers today showed a d-dimer of 21 and the patient also had a LDH level of 3892 from yesterday and the follow-up levels from today still pending. He does have some mild transaminitis related to COVID-19 infection. Electrolytes and renal function are both stable. In terms of treatment, the patient is still on Decadron at a dose of 6 mg on a daily basis. He remains on Lovenox 40 mg subcu every 12 hours and these will be continued. Patient IV fluids at 60 mL an hour. Despite his subcutaneous emphysema, he is able to swallow and he is having no aspiration. He is also on a combination of Tessalon Perles and promethazine to suppress his cough. Chest x-rays subcutaneous emphysema and pneumomediastinum which is quite extensive at this point in time. Objective - Vital Signs Vital signs: Vital Signs Temp 98.5 F 06/18/20 04:00 Pulse 93 06/18/20 05:00 Resp 21 06/18/20 05:00 BP 152/99 06/18/20 05:00 Pulse Ox 85 L 06/18/20 05:00 Intake & Output 06/17/20 06/17/20 06/18/20 06:59 18:59 06:59 Intake Total 1000 1280 960 Output Total 400 1000 750 Balance 600 280 210 Weight 75.5 kg 71.5 kg Intake: IV 600 660 Sodium Chloride 0.9% 1, 600 660 000 ml @ 60 mls/hr IV . [id number] [facility] Rx#:[id number] Oral 1000 680 300 Output: Urine 400 1000 750 Other: Voiding Method Urinal Urinal Urinal # Voids 0 1 # Bowel Movements 1 - Exam Gen. appearance the patient is in mild degree of respiratory distress currently on 100% nonrebreather facemask in addition to high flow oxygen at 60 L with an FiO2 of 90%, the patient has subcutaneous emphysema involving the neck and upper chest area. He is having also frequent coughing spells. The subcutaneous emphysema is also extending to his neck and face Head exam was generally normal. There was no scleral icterus or corneal arcus. Mucous membranes were moist. Neck was supple and without jugular venous distension, thyromegaly, or carotid bruits. Carotids were easily palpable bilaterally. There was no adenopathy. Lungs sounds reveal crackles in the mid and lower lung driver bilaterally and the patient is extensive crackling Cardiac exam revealed the PMI to be normally situated and sized. The rhythm was regular and no extrasystoles were noted during several minutes of auscultation. The first and second heart sounds were normal and physiologic splitting of the second heart sound was noted. There were no murmurs, rubs, clicks, or gallops. Abdominal exam revealed normal bowel sounds. The abdomen was soft, non-tender, and without masses, organomegaly, or appreciable enlargement of the abdominal aorta. Examination of the extremities revealed easily palpable radial, femoral and pe emelia pulses. There was no cyanosis, clubbing or edema. Examination of the skin revealed no evidence of significant rashes, suspicious appearing nevi or other concerning lesions. Neurologically, the patient is awake and alert and the patient - Labs CBC & Chem 7: 06/18/20 03:47 06/18/20 03:36 Labs: Abnormal Lab Results - Last 24 Hours (Table) 06/17/20 06/17/20 06/17/20 Range/Units 05:09 05:09 12:02 WBC (3.8-10.6) k/uL Neutrophils # (1.3-7.7) k/uL D-Dimer 17.62 H (<0.60) mg/L FEU Sodium 132 L (137-145) mmol/L BUN 25 H (9-20) mg/dL Creatinine (0.66-1.25) mg/dL Glucose 122 H (74-99) mg/dL POC Glucose (mg/dL) 146 H (75-99) mg/dL Ferritin 2561.9 H (22.0-322.0) ng/mL AST 103 H (17-59) U/L ALT 118 H (4-49) U/L Alkaline Phosphatase (38-126) U/L Lactate Dehydrogenase 3892 H (313-618) U/L Creatine Kinase 533 H (55-170) U/L C-Reactive Protein 15.2 H (<10.0) mg/L Total Protein 6.0 L (6.3-8.2) g/dL Albumin 3.4 L (3.5-5.0) g/dL 0406/17/20 06/18/20 Range/Units 17:16 21:32 03:36 WBC (3.8-10.6) k/uL Neutrophils # (1.3-7.7) k/uL D-Dimer (<0.60) mg/L FEU Sodium 131 L (137-145) mmol/L BUN 25 H (9-20) mg/dL Creatinine 0.65 L (0.66-1.25) mg/dL Glucose 105 H (74-99) mg/dL POC Glucose (mg/dL) 156 H 147 H (75-99) mg/dL Ferritin (22.0-322.0) ng/mL AST 102 H (17-59) U/L ALT 111 H (4-49) U/L Alkaline Phosphatase 169 H (38-126) U/L Lactate Dehydrogenase (313-618) U/L Creatine Kinase 456 H (55-170) U/L C-Reactive Protein 1.1 H (<10.0) mg/L Total Protein 6.1 L (6.3-8.2) g/dL Albumin 3.4 L (3.5-5.0) g/dL 06/18/20 06/18/20 Range/Units 03:36 03:47 WBC 19.7 H (3.8-10.6) k/uL Neutrophils # 17.5 H (1.3-7.7) k/uL D-Dimer 21.17 H (<0.60) mg/L FEU Sodium (137-145) mmol/L BUN (9-20) mg/dL Creatinine (0.66-1.25) mg/dL Glucose (74-99) mg/dL POC Glucose (mg/dL) (75-99) mg/dL Ferritin (22.0-322.0) ng/mL AST (17-59) U/L ALT (4-49) U/L Alkaline Phosphatase (38-126) U/L Lactate Dehydrogenase (313-618) U/L Creatine Kinase (55-170) U/L C-Reactive Protein (<10.0) mg/L Total Protein (6.3-8.2) g/dL Albumin (3.5-5.0) g/dL Assessment and Plan Plan: 1 acute Covid 19 pneumonia with secondary shortness of breath. Patient was diag nosed on 06/08/2020. Symptoms started on 06/07/2020 the patient rapidly progressed and the patient is coming in with worsening shortness of breath and bilateral pneumonia and extensive consolidation. The chest x-ray from today showing some limited improvement in the back support infiltrates. Currently is on 100% nonrebreather along with a 60 L nasal cannula along with an FiO2 of 90%.. The patient's overnight developed normal mediastinum and subcutaneous emphysema involving the chest and the neck area. He got transferred to the intensive care unit. There has been some mild interval worsening in his oxygenation. Based on that, the patient was transitioned to high flow oxygen. Chest x-ray showing still tiny biapical pneumothoraces and the patient also has extensive subcutaneous emphysema and pneumomediastinum. He is a complicated case of COVID-19 related infection/pneumonia and the patient is being managed conservatively. No need for any chest tube insertion yet. 2 acute hypoxic respiratory failure currently on 100% nonrebreather facemask, along with 60 L nasal cannula with an FiO2 of 90%. 3 shortness of breath secondary to above 4 elevated inflammatory markers secondary to above 5 lymphopenia secondary to above, recovered and the white cell count is at 19 6 mild hyponatremia, normalized Plan The patient on the percent nonrebreather facemask and along with 60 L nasal cannula Chest x-rays from today was noted and there is evidence of pneumomediastinum and subcutaneous emphysema, and both of these findings are worse and the patient may have biapical tiny pneumothoraces. Is not a candidate for Remdesivir due to high oxygen requirements Continue promethazine in addition to Tessalon Perles to suppress his cough. Continue Decadron 6 mg IV every 24 hours Transfused with a unit convalescent plasma Received Tocilizumab 634 mg IV 1 Monitor inflammatory markers, LDH level is still elevated Continue Lovenox IV fluids 0.9 at 60 mL an hour Multivitamins Family will be updated the patient lives with a girlfriend. He has a [employer] business We'll continue to follow. Condition is critical at this point, the patient will be monitored. Critical care time more than 30 minutes.
--- NOTE | 2020-06-18 07:10 | XR ---
EXAMINATION TYPE: XR chest 1V DATE OF EXAM: 06/18/2020 CLINICAL HISTORY: Difficulty breathing and left-sided pneumothorax progress study. COVID positive. TECHNIQUE: Single AP portable upright view of the chest is obtained. COMPARISON: Chest x-ray from earlier today and older studies FINDINGS: Persistent extensive overlying subcutaneous emphysema. Stable tiny left apical pneumothora x. Multifocal opacities bilaterally remain present. Pneumomediastinum suspected similar to prior. Car diac silhouette size stable and within normal limits. Osseous structures are intact. IMPRESSION: Stable tiny left apical pneumothorax. Stable pneumomediastinum. Extensive overlying subcu taneous emphysema redemonstrated. Persistent bilateral multifocal opacities with covid-19 redemonstra jerardo. No significant change from most recent x-ray.
[2020-06-18 07:11] LABS: Glucose,Whole Blood 158 mg/dL (75-99)
[2020-06-18] MEDS: INSULIN ASPART (NovoLOG) 100 UNIT/ML VIAL SQ SCH ×4 (08:49→20:31)
[2020-06-18] MEDS: ASCORBIC ACID 500 MG TAB PO SCH (09:08)
[2020-06-18] MEDS: PANTOPRAZOLE 40 MG TABLET PO SCH (09:08)
[2020-06-18] MEDS: dexAMETHasone 2 MG TAB PO SCH (09:09)
[2020-06-18] MEDS: ZINC SULFATE 220 MG CAP PO SCH (09:09)
[2020-06-18] MEDS: CHOLECALCIFEROL 25 MCG (1000 IU) TABLET PO SCH (09:09)
[2020-06-18] MEDS: ENOXAPARIN 40 MG/0.4 ML SYRINGE SQ SCH ×2 (09:10→20:31)
[2020-06-18] MEDS: CLOTRIMAZOLE TROCHE 10 MG TROCHE MUCOUS MEM SCH ×4 (09:11→20:33)
[2020-06-18] MEDS: BENZONATATE 100 MG CAP PO SCH ×3 (09:11→20:33)
[2020-06-18] MEDS: SODIUM CHLORIDE 0.9% 1,000 ML IV SCH ×2 (09:25→20:33)
[2020-06-18 11:27] LABS: Glucose,Whole Blood 140 mg/dL (75-99)
[2020-06-18 16:36] LABS: Glucose,Whole Blood 144 mg/dL (75-99)
--- NOTE | 2020-06-18 16:51 | P.PN ---
Subjective Progress Note Date: 06/18/20 HISTORY OF PRESENT ILLNESS This is a 55-year-old male patient of Dr. Maxwell Alexander with significant past medical history. Patient states he started having symptoms on June 01 and was diagnosed with COVID-19 on June 08. Patient symptoms or body aches and fatigue as well as cough with white sputum production, increasing shortness of breath and measured pulse ox at home which worsened. He complains of headache chills and nausea. Patient presented to [facility] emergency center for evaluation. Patient was afebrile, heart rate 101, blood pressure 114/75, pulse ox 86% on room air. WBC 6.4, hemoglobin 16.2, platelet count 153. D-dimer 0.84. AST 106, ALT 44, alkaline phosphatase 57, LDH 2547. CRP 150. Sodium 129, potassium 4.6, chloride 97, CO2 23, BUN 12 and creatinine 0.84. Blood sugar 114. Chest x-ray reveals extensive pulmonary infiltrates related to pneumonia and ARDS. CTA of the chest reveals no pulmonary embolism. Patchy areas of nodular consolidations in the bilateral lower lobes with groundglass consolidation of the peripheral of the bilateral upper lobes consistent with multifocal infection compatible with Covid pneumonia. No pleural effusions or pneumothorax. Patient has been seen by pulmonary medicine is not a candidate f or Remdesivir. Convalescent plasma has been ordered as well as Tocilizumab 1 dose. Patient is currently pulse ox 95% on 15 L nonrebreather. 06/15: Repeat chest x-ray reveals worsening infiltrates. Patient is currently on nonrebreather and nasal cannula with pulse ox of 89%. Patient states that he is not sleeping because of coughing. He continues to have cough, shortness of breath. Noted to be tachypneic. Patient states he is eating okay. Melatonin, Flonase and Tessalon Perles added. Patient has been afebrile, heart rate 87, respiratory rate 32, blood pressure 112/70. Repeat blood work reveals WBC 11.4, hemoglobin 15.4, platelet count 208. D-dimer 0.95. Sodium 136 other electroly jagdeep and renal function normal. Blood sugar 118. AST 96, ALT 67, alkaline phosphatase 70. LDH 2884. C-reactive protein 59.4. 06/16: Patient's pulse ox is 90-92% on high flow nasal cannula at 13 L along with 100% nonrebreather. Patient was seen by Dr. Kern plan is to try and wean off 100% oxygen. Patient states that his breathing is stable today. He continues to have shortness of breath with minimal activity and cough. Patient started on mycelex noemi for thrush. He has been afebrile, heart rate 80, blood pressure 114/69. Repeat chest x-ray reveals improving bilateral lung infiltra jagdeep. Patient is continued on dexamethasone, Lovenox and vitamin supplements. 06/17: Yesterday afternoon, received call the patient had subcutaneous emphysema that was new and stat chest x-ray was ordered. This revealed interval development of subcutaneous emphysema within the bilateral neck. Some pneumo mediastinum may be present as the source. Pneumothorax is identified. This was reviewed by Dr. Kern at the time. Last evening at 2200, A-Team was called for puffiness of the neck and shoulder skin. Repeat chest x-ray revealed prominent interval increase in subcutaneous emphysema pattern. Patient was transferred to the intensive care unit. Patient has been seen in the intensive care unit today. He remains on 15 L high flow nasal cannula in addition to 100% nonrebreather facemask. D-dimer is 17.6, LDH 533. Patient remains on Decadron, Lovenox and supplements. Promethazine was added for cough suppression. Subcutaneous emphysema is stable. 06/18 patient evaluated bedside has worsening subcutaneous emphysema. Does appear anxious on examination. He is on Xanax to 0.25 mg twice a day with no improvement in patient's and slightly. We'll repeat chest x-ray does suggest tiny pneumothorax in addition to subcutaneous emphysema. Patient is currently maintaining oxygen saturation on interval 60 L with FiO2 of 90% with a nonrebreather 100%. Minimum exertion is causing desaturation. Patient appears to have worsening inflammation markers including worsening LDH and liver enzymes. Pulmonary care for management of the Covid. Continues to keep patient on dexamethasone, convalescent plasma. Patient is not a candidate for remdesivir. We will start patient on Lexapro 10 mg daily at bedtime to help with anxiety. IV fluids switch to D5NS as patient is not eating being on mask and is hungry. REVIEW OF SYSTEMS Constitutional: No fever, no chills, no night sweats. No weight change. Reports weakness, Reports fatigue or lethargy. No daytime sleepiness. EENT: Reports headache. No blurred vision or double vision, no loss of vision. No loss of Hearing, no ringing in the ears, no dizziness. No nasal drainage or congestion. No epistaxis. No sore throat. Lungs: Reports shortness of breath, reports cough, Reports sputum production. No wheezing. Cardiovascular: No chest pain, no lower extremity edema. No palpitations. No paroxysmal nocturnal dyspnea. No orthopnea. No lightheadedness or dizziness. No syncopal episodes. Abdominal: No abdominal pain. Reports nausea, no vomiting. No diarrhea. No constipation. No bloody or tarry stools reports loss of appetite. Genitourinary: No dysuria, increased frequency, urgency. No urinary retention. Musculoskeletal: Reports myalgias. No muscle weakness, no gait dysfunction, no frequent falls. No back pain. No neck pain. Integumentary: No wounds, no lesions. No rash or pruritus. No unusual bruising. + Subcutaneous emphysema Neurologic: No aphasia. No facial droop. No change in mentation. No head injury. No headache. No paralysis. No paresthesia. Psychiatric: No depression. Reports anxiety. No mood swings. Endocrine: No abnormal blood sugars. No weight change. Objective - Vital Signs Vital signs: Vital Signs Temp 98 F 06/18/20 12:00 Pulse 95 06/18/20 16:00 Resp 32 H 06/18/20 16:00 BP 129/82 06/18/20 16:00 Pulse Ox 89 L 06/18/20 16:00 Intake & Output 06/17/20 06/18/20 06/18/20 18:59 06:59 18:59 Intake Total 1280 1020 660 Output Total 1000 1000 425 Balance 280 20 235 Weight 71.5 kg Intake: IV 600 720 600 Sodium Chloride 0.9% 1, 600 720 600 000 ml @ 60 mls/hr IV . [id number] [facility] Rx#:[id number] Oral 680 300 60 Output: Urine 1000 1000 425 Other: Voiding Method Urinal Urinal Urinal # Voids 1 # Bowel Movements 1 - Exam PHYSICAL EXAMINATION Gen: This is a 55-year-old male. He is resting in bed appears to be in mild respiratory distress with nonrebreather and Airvo oxygen. HEENT: Head is atraumatic, normocephalic. Pupils equal, round. Sclerae is anicteric. NECK: Supple. No JVD. No lymphadenopathy. No thyromegaly. Subcutaneous emphysema. LUNGS: Crackles bilaterally. No wheezes. Mild accessory muscle usage, mild intercostal retractions. Subcutaneous emphysema with crackles underneath the sk in Patient is tachypneic. HEART: Regular rate and rhythm. No murmur. ABDOMEN: Soft. Bowel sounds are present. No masses. No tenderness. EXTREMITIES: No pedal edema. No calf tenderness. Dorsalis pedis +2 bilaterally. NEUROLOGICAL: Patient is awake, alert and oriented x3. Cranial nerves 2 through 12 are grossly intact. - Labs CBC & Chem 7: 06/18/20 03:47 06/18/20 03:36 Labs: Abnormal Lab Results - Last 24 Hours (Table) 06/17/20 06/17/20 06/18/20 Range/Units 17:16 21:32 03:36 WBC (3.8-10.6) k/uL Neutrophils # (1.3-7.7) k/uL D-Dimer (<0.60) mg/L FEU Sodium 131 L (137-145) mmol/L BUN 25 H (9-20) mg/dL Creatinine 0.65 L (0.66-1.25) mg/dL Glucose 105 H (74-99) mg/dL POC Glucose (mg/dL) 156 H 147 H (75-99) mg/dL AST 102 H (17-59) U/L ALT 111 H (4-49) U/L Alkaline Phosphatase 169 H (38-126) U/L Creatine Kinase 456 H (55-170) U/L C-Reactive Protein 1.1 H (<1.0) mg/dL Total Protein 6.1 L (6.3-8.2) g/dL Albumin 3.4 L (3.5-5.0) g/dL 06/18/20 06/18/20 06/18/20 Range/Units 03:36 03:47 07:09 WBC 19.7 H (3.8-10.6) k/uL Neutrophils # 17.5 H (1.3-7.7) k/uL D-Dimer 21.17 H (<0.60) mg/L FEU Sodium (137-145) mmol/L BUN (9-20) mg/dL Creatinine (0.66-1.25) mg/dL Glucose (74-99) mg/dL POC Glucose (mg/dL) 158 H (75-99) mg/dL AST (17-59) U/L ALT (4-49) U/L Alkaline Phosphatase (38-126) U/L Creatine Kinase (55-170) U/L C-Reactive Protein (<1.0) mg/dL Total Protein (6.3-8.2) g/dL Albumin (3.5-5.0) g/dL 06/18/20 06/18/20 Range/Units 11:26 16:34 WBC (3.8-10.6) k/uL Neutrophils # (1.3-7.7) k/uL D-Dimer (<0.60) mg/L FEU Sodium (137-145) mmol/L BUN (9-20) mg/dL Creatinine (0.66-1.25) mg/dL Glucose (74-99) mg/dL POC Glucose (mg/dL) 140 H 144 H (75-99) mg/dL AST (17-59) U/L ALT (4-49) U/L Alkaline Phosphatase (38-126) U/L Creatine Kinase (55-170) U/L C-Reactive Protein (<1.0) mg/dL Total Protein (6.3-8.2) g/dL Albumin (3.5-5.0) g/dL Assessment and Plan Plan: 1. Acute hypoxic respiratory failure secondary to Covid 19 pneumonia. Patient has been seen by pulmonary medicine status post Convalescent plasma and Tocilizumab 1 dose. Continue dexamethasone 6 mg every 24 hours, Lovenox 40 mg subcu twice daily, vitamins. Patient is currently on oxygen at 60 L high flow nasal cannula and 100% nonrebreather 2. Elevated inflammatory markers secondary to Covid 19. Continue to monitor. 3. Mild hyponatremia. Continue IV fluids. 4. Elevated d-dimer. Acute pulmonary embolism has been ruled out by CTA. 5. Lymphocytopenia secondary to Covid 19. 6. Thrush. Patient started on Mycelex troches. 7. Subcutaneous emphysema, enlarging on BIPAP, continue to monitor with repeat cxr 8. GI prophylaxis. Protonix daily. 9. DVT prophylaxis. Lovenox.
[2020-06-18] MEDS: DEXTROSE 5%-0.9% NACL 1,000 ML IV SCH (17:31)
[2020-06-18] MEDS ORDERED: MIRTAZAPINE 15 MG TAB PO PRN (19:26)
[2020-06-18 20:28] LABS: Glucose,Whole Blood 155 mg/dL (75-99)
[2020-06-18] MEDS: MELATONIN 3 MG TABLET PO SCH (20:32)
[2020-06-18] MEDS ORDERED: ESCITALOPRAM 10 MG TAB PO SCH (21:00)
[2020-06-18] MEDS: ALPRAZolam 0.25 MG TAB PO PRN (21:36)
[2020-06-19] MEDS ORDERED: ALPRAZolam 0.5 MG TAB PO PRN ×2 (01:39→15:06)
[2020-06-19 03:49] LABS: HCT 48.2 % (39.0-53.0); HGB 16.2 gm/dL (13.0-17.5); MCH 29.8 pg (25.0-35.0); MCHC 33.5 g/dL (31.0-37.0); MCV 88.9 fL (80.0-100.0); Mean Platelet Volume 8.5; Platelet Count 135 k/uL (150-450); RBC 5.43 m/uL (4.30-5.90); RDW 13.5 % (11.5-15.5)
[2020-06-19 04:04] LABS: ALT 102 U/L (4-49); AST 127 U/L (17-59); African American GFR (CKD) >90 (>60 ml/min/1.73 sqM); Albumin 3.4 g/dL (3.5-5.0); Alkaline Phosphatase 232 U/L (38-126); Anion Gap 5 mmol/L; Blood Urea Nitrogen 25 mg/dL (9-20); C Reactive Protein 1.9 mg/dL (<1.0); Calcium 8.5 mg/dL (8.4-10.2); Carbon Dioxide 26 mmol/L (22-30); Chloride 99 mmol/L (98-107); Creatine Kinase 588 U/L (55-170); Glucose 103 mg/dL (74-99); Non-African American GFR(CKD) >90 (>60 ml/min/1.73 sqM); Potassium 4.7 mmol/L (3.5-5.1); Sodium 130 mmol/L (137-145); Total Protein 5.9 g/dL (6.3-8.2)
--- NOTE | 2020-06-19 05:49 | XR ---
EXAMINATION TYPE: XR chest 1V DATE OF EXAM: 06/19/2020 CLINICAL HISTORY: Difficulty breathing progress study. TECHNIQUE: Single AP portable upright view of the chest is obtained. COMPARISON: Chest x-ray from one day earlier and older studies. FINDINGS: Persistent extensive overlying subcutaneous emphysema. Tiny left apical pneumothorax stabl e or slightly improved as is less well seen.. Multifocal opacities bilaterally remain present, more c onfluent in the lower lungs on current study. Pneumomediastinum redemonstrated. Cardiac silhouette si ze stable and within normal limits. Osseous structures are intact. IMPRESSION: Tiny left apical pneumothorax stable or improved. Redemonstration of pneumomediastinum. E xtensive overlying subcutaneous emphysema redemonstrated. Persistent bilateral multifocal and conflue nt opacities with covid-19 redemonstrated. Worsening findings in the lower lungs noted from most rece nt study.
[2020-06-19 06:14] LABS: Glucose,Whole Blood 119 mg/dL (75-99)
[2020-06-19 06:26] LABS: LDH 7846 U/L (313-618)
[2020-06-19] MEDS: INSULIN ASPART (NovoLOG) 100 UNIT/ML VIAL SQ SCH ×4 (06:34→21:45)
--- NOTE | 2020-06-19 07:06 | P.PN ---
Subjective Progress Note Date: 06/19/20 55-year-old male patient presented with shortness of breath and the patient had a COVID 19 associated pneumonia. The patient was diagnosed having COVID 19 likely 5 days ago. Patient symptoms as well as body ache and fatigue and subsequently fever and cough and shortness of breath. Her pulse ox at home and drop down to the 80s and for that reason the patient came into the hospital. She also had some nausea and emesis and some mild diarrhea. She was taking Tylenol for her fever in addition to Motrin. In the emergency, the patient's pulse ox was 86% on room air and she was tachycardic, sinus tachycardia. Her blood work showed an LDH level of 2547, CRP of 150, d-dimer of 0.8. Sodium level was 129. The patient had lymphopenia. The chest x-ray showed extensive bilateral consolidations most on the peripheries and spreading the upper lobes. A CT angiogram of the chest showed no evidence of any pulmonary embolism. The patient had patchy areas of no other consolidation in the lower lobes bilaterally along with some areas of groundglass and consolidations bilaterally. No evidence of any pleural effusion. No other major abnormalities. Patient is currently on oxygen and he is on 15 L of oxygen by nonrebreather facemask. He is also placed on Decadron 6 mg by mouth daily, Lovenox 40 mg subcu daily. At this point in time, the patient is on 15 L nonrebreather facemask. He has labored breathing even while talking and sometimes even at rest. 06/15/2020, the patient remains in the 100% nonrebreather facemask. Repeat chest x-ray was done and was reported that the patient has diffuse interstitial infiltrates bilaterally with probably some interval worsening. Clinically however, the patient is feeling better. He also was started on a combination of steroids and the patient received convalescent plasma 1 and he also received a dose of Actemra 140 mg IV. His blood work from today is showing a d-dimer of 0.95, LDH level is up to 2884 and the CRP level is down to 59.4. On today's evaluation of 06/16/2020 the patient is being seen for a follow-up. The patient is on high flow oxygen at 15 L through 100% nonrebreather facemask. He is also on 13 L per nasal cannula. He is feeling okay. His repeat chest x- ray showing stable bilateral pulmonary infiltrates. His pulse ox is ranging in the high 80s low 90s range. The patient desaturates easily with activity and talking. No new labs are available from today. The patient also received rece ived convalescent plasma 1 and he also received a dose of Actemra 640 mg IV. 06/17/2020 the patient is being seen in follow-up. I transferred the patient to the intensive care unit yesterday. At around 5 or 6 PM yesterday, the patient had increased cough and following that he felt some areas on the skin and sure enough he was developing pneumomediastinum and subcutaneous emphysema bilaterally. CAT scan of the chest was repeated yesterday and the findings were consistent with normal mediastinum and saphenous emphysema bilaterally extending to his neck. His pulse ox dropped down to the high 70s 11 years and often spelled. Otherwise, when rested, his pulse ox is in the order of 88%. Cur rently is on 15 L nasal cannula in addition to 100% nonrebreather facemask. D- dimer is at 17.6. LDH level is at 533. The patient remains on Decadron 6 mg orally and the patient is also on Lovenox 40 mg subcu every 12 hours. He is receiving IV fluids at the rate of 60 hour. He was given Tessalon Perles to suppress his cough. I'm going to add also promethazine for cough suppression. Is a bit anxious. He is comfortable. Slightly tachypneic he is not using his accessory muscles of breathing. He is subcutaneous emphysema is stable for now without any interval extension is face for the rest of the body. It's mainly involving the chest and the neck area. He is able to swallow.The patient also received received convalescent plasma 1 and he also received a dose of Actemra 640 mg IV. 06/18/2020, the patient is having some worsening in the subcutaneous emphysema. This is clinically on his examination and is also noted on the chest x-ray. There are also very tiny bilateral apical pneumothoraces seen on the chest x- ray. Meanwhile, the patient is currently on Airvo 60 Liters with an FiO2 of 90% and 100% nonrebreather on top. He is short of breath even at rest. He desaturates easily with cough and and moving. Currently is resting comfortably in bed. He is using incentive spirometer. He is quite anxious. At the same time, his inflammatory markers today showed a d-dimer of 21 and the patient also had a LDH level of 3892 from yesterday and the follow-up levels from today still pending. He does have some mild transaminitis related to COVID-19 infection. Electrolytes and renal function are both stable. In terms of treatment, the patient is still on Decadron at a dose of 6 mg on a daily basis. He remains on Lovenox 40 mg subcu every 12 hours and these will be continued. Patient IV fluids at 60 mL an hour. Despite his subcutaneous emphysema, he is able to swallow and he is having no aspiration. He is also on a combination of Tessalon Perles and promethazine to suppress his cough. Chest x-rays subcutaneous emphysema and pneumomediastinum which is quite extensive at this point in time. 06/19/2020, the patient is being monitored very closely in the intensive care unit. As mentioned earlier, the patient developed complications of COVID-19 related pneumonia with development of pneumomediastinum and subcutaneous emphysema bilaterally. He was moved to the intensive care unit and he was utilizing a combination of high flow oxygen and 100% nonrebreather facemask. He was on a high flow at 60 L with an FiO2 of 90% along with 100% nonrebreather facemask. He continues to have desaturations and at that point he was switched to a BiPAP at a pressure of 12/6 cm of water with an FiO2 of 100%. Along with the BiPAP, he does much better in his oxygenation saturation, 290 and up to 94%. This morning, he is sitting at edge of the bed and he is wearing his BiPAP. His face is slightly swollen and he continues to have subcutaneous emphysemaneck and chest area. The chest x-ray still showing bilateral subcutaneous emphysema and pneumomediastinum. There is also a tiny left apical pneumothorax. We have decided not to put any chest tubes on this patient for now. Clinically, there is no significant extension of his subcutaneous emphysema. The patient's LDH level is at 7846 and the CRP level is at 1.5. His CPK level is at 588. Sodium is at 1:30 and the white cell count is at 19.0 with a platelet count of 135. As noted, there has been some progressive drop in the platelet count. LDH remains quite elevated. The patient remains on Lovenox 40 mg subcu every 12 hours. His most recent d-dimer level was 21 and the repeat level is pending for now. He is also on Decadron 6 mg IV daily basis. He is on BiPAP for now. He is also receiving a combination of Tessalon Perles and promethazine for cough. He is anxious and he is slightly tachycardic. His current respiratory rate is in the mid 30s. He is able to generate tidal volumes of above 500 while on the BiPAP. Objective - Vital Signs Vital signs: Vital Signs Temp 98.7 F 06/19/20 00:00 Pulse 109 H 06/19/20 06:00 Resp 30 H 06/19/20 06:00 BP 127/76 06/19/20 06:00 Pulse Ox 91 L 06/19/20 06:00 Intake & Output 06/18/20 06/19/20 06/19/20 18:59 06:59 18:59 Intake Total 770 650 Output Total 625 800 Balance 145 -150 Intake: IV 660 Sodium Chloride 0.9% 1, 660 000 ml @ 60 mls/hr IV . [id number] BRISEYDA Rx#:[id number] Intake, IV Titration 50 600 Amount Dextrose 5%-0.9% NaCl 1, 50 600 000 ml @ 50 mls/hr IV . Q20H BRISEYDA Rx#:[id number] Oral 60 50 Output: Urine 625 800 Other: Voiding Method Urinal Urinal # Voids 0 - Exam Gen. appearance the patient is in mild degree of respiratory distress currently on 100% nonrebreather facemask in addition to high flow oxygen at 60 L with an FiO2 of 90%, the patient has subcutaneous emphysema involving the neck and upper chest area. He is having also frequent coughing spells. The subcutaneous emphysema is also extending to his neck and face. Note that the patient is this alternating this setting with a BiPAP at a pressure of 12/6 cm of water and FiO2 of 100%. Remains anxious. He remains awake. He is communicating. Head exam was generally normal. There was no scleral icterus or corneal arcus. Mucous membranes were moist. Neck was supple and without jugular venous distension, thyromegaly, or carotid bruits. Carotids were easily palpable bilaterally. There was no adenopathy. Lungs sounds reveal crackles in the mid and lower lung driver bilaterally and the patient is extensive crackling Cardiac exam revealed the PMI to be normally situated and sized. The rhythm was regular and no extrasystoles were noted during several minutes of auscultation. The first and second heart sounds were normal and physiologic splitting of the second heart sound was noted. There were no murmurs, rubs, clicks, or gallops. Abdominal exam revealed normal bowel sounds. The abdomen was soft, non-tender, and without masses, organomegaly, or appreciable enlargement of the abdominal aorta. Examination of the extremities revealed easily palpable radial, femoral and pedal pulses. There was no cyanosis, clubbing or edema. Examination of the skin revealed no evidence of significant rashes, suspicious appearing nevi or other concerning lesions. Neurologically, the patient is awake and alert and the patient - Labs CBC & Chem 7: 06/19/20 03:03 06/19/20 03:03 Labs: Abnormal Lab Results - Last 24 Hours (Table) 06/18/20 06/18/20 06/18/20 Range/Units 07:09 11:26 16:34 WBC (3.8-10.6) k/uL Plt Count (150-450) k/uL Sodium (137-145) mmol/L BUN (9-20) mg/dL Glucose (74-99) mg/dL POC Glucose (mg/dL) 158 H 140 H 144 H (75-99) mg/dL AST (17-59) U/L ALT (4-49) U/L Alkaline Phosphatase (38-126) U/L Lactate Dehydrogenase (313-618) U/L Creatine Kinase (55-170) U/L C-Reactive Protein (<1.0) mg/dL Total Protein (6.3-8.2) g/dL Albumin (3.5-5.0) g/dL 06/18/20 06/19/20 06/19/20 Range/Units 20:26 03:03 03:03 WBC 19.0 H (3.8-10.6) k/uL Plt Count 135 L (150-450) k/uL Sodium 130 L (137-145) mmol/L BUN 25 H (9-20) mg/dL Glucose 103 H (74-99) mg/dL POC Glucose (mg/dL) 155 H (75-99) mg/dL AST 127 H (17-59) U/L ALT 102 H (4-49) U/L Alkaline Phosphatase 232 H (38-126) U/L Lactate Dehydrogenase 7846 H (313-618) U/L Creatine Kinase 588 H (55-170) U/L C-Reactive Protein 1.9 H (<1.0) mg/dL Total Protein 5.9 L (6.3-8.2) g/dL Albumin 3.4 L (3.5-5.0) g/dL 06/19/20 Range/Units 06:13 WBC (3.8-10.6) k/uL Plt Count (150-450) k/uL Sodium (137-145) mmol/L BUN (9-20) mg/dL Glucose (74-99) mg/dL POC Glucose (mg/dL) 119 H (75-99) mg/dL AST (17-59) U/L ALT (4-49) U/L Alkaline Phosphatase (38-126) U/L Lactate Dehydrogenase (313-618) U/L Creatine Kinase (55-170) U/L C-Reactive Protein (<1.0) mg/dL Total Protein (6.3-8.2) g/dL Albumin (3.5-5.0) g/dL Assessment and Plan Plan: 1 acute Covid 19 pneumonia with secondary shortness of breath. Patient was diagnosed on 06/08/2020. Symptoms started on 06/07/2020 the patient rapidly progressed and the patient is coming in with worsening shortness of breath and bilateral pneumonia and extensive consolidation. Chest x-ray showing still tiny biapical pneumothoraces and the patient also has extensive subcutaneous emphysema and pneumomediastinum. This a complicated case of COVID-19 related infection/pneumonia and the patient is being managed conservatively. No need for any chest tube insertion yet. The chest x-ray findings from today still showing a left apical pneumothorax, unchanged. The patient has been transitioned from high flow oxygen 6 L with an FiO2 of 90% in combination with 100% on a beta facemask into a BiPAP of /6 with an FiO2 of 100%. He is alternating between these 2 although he does much better while on the BiPAP maintaining a suspicion of above 90%. Remains on Decadron. He remains on Lovenox. 2 acute hypoxic respiratory failure currently on 100% nonrebreather facemask, along with 60 L nasal cannula with an FiO2 of 90%. 3 shortness of breath secondary to above 4 elevated inflammatory markers secondary to above, LDH level remains considerably elevated with white cell count 5 lymphopenia secondary to above, recovered and the white cell count is at 19 6 mild hyponatremia, normalized 7 thrombocytopenia, platelet count needs to be monitored 8 increased anxiety secondary to above Plan The patient on the percent nonrebreather facemask and along with 60 L nasal cannula, and this will be alternating with BiPAP at a pressure of 12/6 with an FiO2 of 100%. Overall, he does much better on the BiPAP. Chest x-rays from today was noted and there is evidence of pneumomediastinum and subcutaneous emphysema, and both of these findings are worse and the patient may have biapical tiny pneumothoraces. Is not a candidate for Remdesivir due to high oxygen requirements and REM the severe was discontinued and the patient was given Tocilizumab Continue promethazine in addition to Tessalon Perles to suppress his cough. Continue Decadron 6 mg IV every 24 hours Transfused with a unit convalescent plasma Received Tocilizumab 634 mg IV 1 Monitor inflammatory markers, LDH level is still elevated Continue Lovenox IV fluids 0.9 at 60 mL an hour Multivitamins Monitor the platelet counts Check coagulation profile in combination with a d-dimer Family will be updated the patient lives with a girlfriend. He has a [employer] business We'll continue to follow. Condition is critical at this point, the patient will be monitored. Critical care time more than 30 minutes. Time with Patient: Greater than 30
[2020-06-19] MEDS: PANTOPRAZOLE 40 MG TABLET PO SCH (07:17)
[2020-06-19] MEDS: ASCORBIC ACID 500 MG TAB PO SCH (08:01)
[2020-06-19] MEDS: CLOTRIMAZOLE TROCHE 10 MG TROCHE MUCOUS MEM SCH ×4 (08:02→20:54)
[2020-06-19] MEDS: ZINC SULFATE 220 MG CAP PO SCH (08:02)
[2020-06-19] MEDS: CHOLECALCIFEROL 25 MCG (1000 IU) TABLET PO SCH (08:02)
[2020-06-19] MEDS: ENOXAPARIN 40 MG/0.4 ML SYRINGE SQ SCH ×2 (08:02→20:53)
[2020-06-19] MEDS: DEXAMETHASONE SOD PHOSPHATE 10 MG/ML 1 ML VIAL IV SCH (08:03)
[2020-06-19] MEDS: BENZONATATE 100 MG CAP PO SCH ×3 (08:03→20:54)
[2020-06-19] MEDS: LORazepam 2 MG/ML INJ IV PRN ×2 (09:33→20:54)
[2020-06-19 09:40] LABS: Ferritin 3144.8 ng/mL (22.0-322.0)
[2020-06-19 11:52] LABS: Glucose,Whole Blood 151 mg/dL (75-99)
[2020-06-19] MEDS ORDERED: MIRTAZAPINE 15 MG TAB PO PRN (15:24)
--- NOTE | 2020-06-19 15:32 | P.PN ---
Subjective Progress Note Date: 06/19/20 HISTORY OF PRESENT ILLNESS This is a 55-year-old male patient of Dr. Maxwell Alexander with significant past medical history. Patient states he started having symptoms on June 01 and was diagnosed with COVID-19 on June 08. Patient symptoms or body aches and fatigue as well as cough with white sputum production, increasing shortness of breath and measured pulse ox at home which worsened. He complains of headache chills and nausea. Patient presented to [facility] emergency center for evaluation. Patient was afebrile, heart rate 101, blood pressure 114/75, pulse ox 86% on room air. WBC 6.4, hemoglobin 16.2, platelet count 153. D-dimer 0.84. AST 106, ALT 44, alkaline phosphatase 57, LDH 2547. CRP 150. Sodium 129, potassium 4.6, chloride 97, CO2 23, BUN 12 and creatinine 0.84. Blood sugar 114. Chest x-ray reveals extensive pulmonary infiltrates related to pneumonia and ARDS. CTA of the chest reveals no pulmonary embolism. Patchy areas of nodular consolidations in the bilateral lower lobes with groundglass consolidation of the peripheral of the bilateral upper lobes consistent with multifocal infection compatible with Covid pneumonia. No pleural effusions or pneumothorax. Patient has been seen by pulmonary medicine is not a candidate f or Remdesivir. Convalescent plasma has been ordered as well as Tocilizumab 1 dose. Patient is currently pulse ox 95% on 15 L nonrebreather. 06/15: Repeat chest x-ray reveals worsening infiltrates. Patient is currently on nonrebreather and nasal cannula with pulse ox of 89%. Patient states that he is not sleeping because of coughing. He continues to have cough, shortness of breath. Noted to be tachypneic. Patient states he is eating okay. Melatonin, Flonase and Tessalon Perles added. Patient has been afebrile, heart rate 87, respiratory rate 32, blood pressure 112/70. Repeat blood work reveals WBC 11.4, hemoglobin 15.4, platelet count 208. D-dimer 0.95. Sodium 136 other electroly jagdeep and renal function normal. Blood sugar 118. AST 96, ALT 67, alkaline phosphatase 70. LDH 2884. C-reactive protein 59.4. 06/16: Patient's pulse ox is 90-92% on high flow nasal cannula at 13 L along with 100% nonrebreather. Patient was seen by Dr. Kern plan is to try and wean off 100% oxygen. Patient states that his breathing is stable today. He continues to have shortness of breath with minimal activity and cough. Patient started on mycelex noemi for thrush. He has been afebrile, heart rate 80, blood pressure 114/69. Repeat chest x-ray reveals improving bilateral lung infiltra jagdeep. Patient is continued on dexamethasone, Lovenox and vitamin supplements. 06/17: Yesterday afternoon, received call the patient had subcutaneous emphysema that was new and stat chest x-ray was ordered. This revealed interval development of subcutaneous emphysema within the bilateral neck. Some pneumo mediastinum may be present as the source. Pneumothorax is identified. This was reviewed by Dr. Kern at the time. Last evening at 2200, A-Team was called for puffiness of the neck and shoulder skin. Repeat chest x-ray revealed prominent interval increase in subcutaneous emphysema pattern. Patient was transferred to the intensive care unit. Patient has been seen in the intensive care unit today. He remains on 15 L high flow nasal cannula in addition to 100% nonrebreather facemask. D-dimer is 17.6, LDH 533. Patient remains on Decadron, Lovenox and supplements. Promethazine was added for cough suppression. Subcutaneous emphysema is stable. 06/18 patient evaluated bedside has worsening subcutaneous emphysema. Does appear anxious on examination. He is on Xanax to 0.25 mg twice a day with no improvement in patient's and slightly. We'll repeat chest x-ray does suggest tiny pneumothorax in addition to subcutaneous emphysema. Patient is currently maintaining oxygen saturation on interval 60 L with FiO2 of 90% with a nonrebreather 100%. Minimum exertion is causing desaturation. Patient appears to have worsening inflammation markers including worsening LDH and liver enzymes. Pulmonary care for management of the Covid. Continues to keep patient on dexamethasone, convalescent plasma. Patient is not a candidate for remdesivir. We will start patient on Lexapro 10 mg daily at bedtime to help with anxiety. IV fluids switch to D5NS as patient is not eating being on mask and is hungry. 06/19 patient evaluated bedside has worsening subcutaneous emphysema, facial swelling and pneumomediastinum. Patient is alert and keeping saturation 90-92% on BiPAP. He appears anxious and is breathing at 26 respiratory rate per minute. Blood pressure 1:30/74 heart rate of 113.chest x-rays consistent with bilateral subcutaneous emphysema and pneumomediastinum any apical pneumothorax dizzy and chest tube at this point. On evaluation patient's labs patient's leukocytosis and 19 sodium stable at 1:30, creatinine 0.67 and ferritin is 3144 elevated liver enzymes early at 7846 increased from prior low albumin. patient continues to have increased in size the despite initiation of Remeron will increase Remeron to 30 mg at bedtime Xanax increased to 0.5 twice a day f rom 0.25. Ativan can be given if patient is unable to tolerate oral medication. Plan to start patient on TPN tomorrow. Low sodium could be a results of D5W . REVIEW OF SYSTEMS Constitutional: No fever, no chills, no night sweats. No weight change. Reports weakness, Reports fatigue or lethargy. No daytime sleepiness. EENT: Reports headache. No blurred vision or double vision, no loss of vision. No loss of Hearing, no ringing in the ears, no dizziness. No nasal drainage or congestion. No epistaxis. No sore throat. Lungs: Reports shortness of breath, reports cough, Reports sputum production. No wheezing. Cardiovascular: No chest pain, no lower extremity edema. No palpitations. No paroxysmal nocturnal dyspnea. No orthopnea. No lightheadedness or dizziness. No syncopal episodes. Abdominal: No abdominal pain. Reports nausea, no vomiting. No diarrhea. No constipation. No bloody or tarry stools reports loss of appetite. Genitourinary: No dysuria, increased frequency, urgency. No urinary retention. Musculoskeletal: Reports myalgias. No muscle weakness, no gait dysfunction, no frequent falls. No back pain. No neck pain. Integumentary: No wounds, no lesions. No rash or pruritus. No unusual bruising. + Subcutaneous emphysema Neurologic: No aphasia. No facial droop. No change in mentation. No head injury. No headache. No paralysis. No paresthesia. Psychiatric: No depression. Reports anxiety. No mood swings. Endocrine: No abnormal blood sugars. No weight change. Objective - Vital Signs Vital signs: Vital Signs Temp 98.1 F 06/19/20 12:00 Pulse 113 H 04/18/21 15:00 Resp 26 H 06/19/20 15:00 BP 134/74 06/19/20 15:00 Pulse Ox 93 L 06/19/20 15:00 Intake & Output 06/18/20 06/19/20 06/19/20 18:59 06:59 18:59 Intake Total 770 650 450 Output Total 625 800 300 Balance 145 -150 150 Intake: IV 660 Sodium Chloride 0.9% 1, 660 000 ml @ 60 mls/hr IV . [id number] BRISEYDA Rx#:[id number] Intake, IV Titration 50 600 450 Amount Dextrose 5%-0.9% NaCl 1, 50 600 450 000 ml @ 50 mls/hr IV . Q20H BRISEYDA Rx#:[id number] Oral 60 50 Output: Urine 625 800 300 Other: Voiding Method Urinal Urinal Urinal # Voids 0 0 - Exam PHYSICAL EXAMINATION Gen: This is a 55-year-old male. He is resting in bed appears to be in mild respiratory distress with nonrebreather and Airvo oxygen. HEENT: Head is atraumatic, normocephalic. Pupils equal, round. Sclerae is anicteric. NECK: Supple. No JVD. No lymphadenopathy. No thyromegaly. Subcutaneous emphysema. LUNGS: Crackles bilaterally. No wheezes. Mild accessory muscle usage, mild intercostal retractions. Subcutaneous emphysema with crackles underneath the skin Patient is tachypneic. HEART: Regular rate and rhythm. No murmur. ABDOMEN: Soft. Bowel sounds are present. No masses. No tenderness. EXTREMITIES: No pedal edema. No calf tenderness. Dorsalis pedis +2 bilaterally. NEUROLOGICAL: Patient is awake, alert and oriented x3. Cranial nerves 2 through 12 are grossly intact. - Labs CBC & Chem 7: 06/19/20 03:03 06/19/20 03:03 Labs: Abnormal Lab Results - Last 24 Hours (Table) 06/18/20 06/18/20 06/19/20 Range/Units 16:34 20:26 03:03 WBC (3.8-10.6) k/uL Plt Count (150-450) k/uL Sodium 130 L (137-145) mmol/L BUN 25 H (9-20) mg/dL Glucose 103 H (74-99) mg/dL POC Glucose (mg/dL) 144 H 155 H (75-99) mg/dL Ferritin 3144.8 H (22.0-322.0) ng/mL AST 127 H (17-59) U/L ALT 102 H (4-49) U/L Alkaline Phosphatase 232 H (38-126) U/L Lactate Dehydrogenase 7846 H (313-618) U/L Creatine Kinase 588 H (55-170) U/L C-Reactive Protein 1.9 H (<1.0) mg/dL Total Protein 5.9 L (6.3-8.2) g/dL Albumin 3.4 L (3.5-5.0) g/dL 06/19/20 06/19/20 06/19/20 Range/Units 03:03 06:13 11:50 WBC 19.0 H (3.8-10.6) k/uL Plt Count 135 L (150-450) k/uL Sodium (137-145) mmol/L BUN (9-20) mg/dL Glucose (74-99) mg/dL POC Glucose (mg/dL) 119 H 151 H (75-99) mg/dL Ferritin (22.0-322.0) ng/mL AST (17-59) U/L ALT (4-49) U/L Alkaline Phosphatase (38-126) U/L Lactate Dehydrogenase (313-618) U/L Creatine Kinase (55-170) U/L C-Reactive Protein (<1.0) mg/dL Total Protein (6.3-8.2) g/dL Albumin (3.5-5.0) g/dL Assessment and Plan Plan: 1. Acute hypoxic respiratory failure secondary to Covid 19 pneumonia. Patient has been seen by pulmonary medicine status post Convalescent plasma and Tocilizumab 1 dose. Continue dexamethasone 6 mg every 24 hours, Lovenox 40 mg subcu twice daily, vitamins. Patient is currently on oxygen at 60 L high flow nasal cannula and 100% nonrebreather addendum entered and nightly BiPAP 2. Elevated inflammatory markers secondary to Covid 19. Continue to monitor. 3. Mild hyponatremia. Continue IV fluids. 4. Elevated d-dimer. Acute pulmonary embolism has been ruled out by CTA. 5. Lymphocytopenia secondary to Covid 19. 6. Thrush. Patient started on Mycelex troches. 7. Subcutaneous emphysema and pneumomediastinum, enlarging on BIPAP, continue to monitor with repeat cxr 8. GI prophylaxis. Protonix daily. 9. DVT prophylaxis. Lovenox. 10 anxiety initiated on Remeron at 15 with no improvement we'll increase it to 30 mg daily. Xanax 0.5 twice a day as needed for anxiety.
[2020-06-19 17:35] LABS: Glucose,Whole Blood 142 mg/dL (75-99)
[2020-06-19] MEDS: DEXTROSE 5%-0.9% NACL 1,000 ML IV SCH (19:42)
[2020-06-19] MEDS ORDERED: DEXMEDETOMIDINE/0.9% NACL(PMX) 400 MCG in EMPTY BAG 1 BAG IV SCH (22:00)
[2020-06-19 22:22] LABS: ABG Base Excess 3.5 mmol/L; ABG HCO3 28 mmol/L (21-25); ABG Oxygen Saturation 82.8 % (94-97); ABG PCO2 40 mmHg (35-45); ABG PH 7.45 (7.35-7.45); ABG TCO2 29 mmol/L (19-24); Allen Test Performed? Yes
[2020-06-19 22:25] LABS: ABG PO2 47 mmHg (83-108)
--- NOTE | 2020-06-19 23:18 | XR ---
EXAMINATION TYPE: XR chest 1V DATE OF EXAM: 06/19/2020 COMPARISON: Today HISTORY: Short of breath TECHNIQUE: Single view FINDINGS: There is extensive soft tissue air on the chest wall bilaterally. There is extensive pulmon sj airspace edema. There is blunting of the costophrenic angles. There is no sign of a pneumothorax. Trachea is midline. IMPRESSION: There is increased pulmonary edema in the mid and lower lung driver compared to exam this morning. Soft tissue air unchanged.
[2020-06-19] MEDS ORDERED: FUROSEMIDE 10 MG/ML 4 ML VIAL IV STA (23:32)
[2020-06-20] MEDS ORDERED: ROCURONIUM 10 MG/ML (5 ML VIAL) IV ONE (02:55)
[2020-06-20] MEDS: fentaNYL (PF). 1,000 MCG in SODIUM CHLORIDE 0.9% 80 ML IV SCH ×4 (03:30→20:16)
[2020-06-20 03:42] LABS: ABG Base Excess 3.7 mmol/L; ABG HCO3 32 mmol/L (21-25); ABG Oxygen Saturation 38.6 % (94-97); ABG PH 7.22 (7.35-7.45); ABG TCO2 34 mmol/L (19-24)
[2020-06-20 03:49] LABS: ABG PCO2 78 mmHg (35-45)
[2020-06-20 03:50] LABS: ABG PO2 29 mmHg (83-108); Allen Test Performed? no
[2020-06-20] MEDS ORDERED: CISATRACURIUM 2 MG/ML 5 ML VIAL IV ONE ×2 (03:50→03:58)
[2020-06-20] MEDS: CISATRACURIUM 200 MG in SODIUM CHLORIDE 0.9% 180 ML IV SCH (04:04)
[2020-06-20 04:06] LABS: HCT 48.3 % (39.0-53.0); MCH 31.7 pg (25.0-35.0); MCHC 35.3 g/dL (31.0-37.0); MCV 90.1 fL (80.0-100.0); Mean Platelet Volume 8.6; Platelet Count 124 k/uL (150-450); RBC 5.36 m/uL (4.30-5.90); WBC 29.6 k/uL (3.8-10.6)
--- NOTE | 2020-06-20 04:14 | XR ---
EXAM: XR Chest, 1 View CLINICAL HISTORY: ITS.REASON XR Reason: Tube placement TECHNIQUE: Frontal view of the chest. COMPARISON: 06/19/2020 at 10:23pm FINDINGS: See impression IMPRESSION: 1. Endotracheal tube terminates 4.3 cm below the level of the west[place]. 2. Nasogastric tube terminates just distal to the level of the gastroesophageal junction. Consider advancing 5 cm. 3. Slight decrease in bibasilar opacities with diffuse bilateral subcutaneous emphysema.
[2020-06-20 04:25] LABS: ABG Base Excess -0.4 mmol/L; ABG HCO3 30 mmol/L (21-25); ABG Oxygen Saturation 97.9 % (94-97); ABG PO2 164 mmHg (83-108); ABG TCO2 33 mmol/L (19-24)
[2020-06-20 04:25] LABS: ALT 92 U/L (4-49); AST 131 U/L (17-59); African American GFR (CKD) >90 (>60 ml/min/1.73 sqM); Albumin 3.3 g/dL (3.5-5.0); Alkaline Phosphatase 310 U/L (38-126); Anion Gap 6 mmol/L; Blood Urea Nitrogen 28 mg/dL (9-20); C Reactive Protein 3.7 mg/dL (<1.0); Calcium 8.3 mg/dL (8.4-10.2); Carbon Dioxide 31 mmol/L (22-30); Chloride 95 mmol/L (98-107); Creatine Kinase 501 U/L (55-170); Glucose 162 mg/dL (74-99); Non-African American GFR(CKD) >90 (>60 ml/min/1.73 sqM); Potassium 5.4 mmol/L (3.5-5.1); Sodium 132 mmol/L (137-145); Total Bilirubin 1.1 mg/dL (0.2-1.3)
[2020-06-20 04:33] LABS: ABG PCO2 101 mmHg (35-45); ABG PH 7.08 (7.35-7.45); Allen Test Performed? no
[2020-06-20] MEDS: ARTIFICIAL TEARS-HYPROMELLOSE DROPS 15 ML BTL BOTH EYES SCH ×6 (05:06→23:18)
[2020-06-20] MEDS ORDERED: SODIUM BICARB 8.4% 50 ML SYR (1 MEQ/ML) IV STA ×3 (05:19→17:46)
[2020-06-20] MEDS ORDERED: NOREPINEPHRIN 4 MG-0.9% NS PMX 4 MG/250 ML ML IV ONE (05:57)
[2020-06-20] MEDS ORDERED: SODIUM BICARB 8.4% 50 ML SYR (1 MEQ/ML) ONE (06:08)
[2020-06-20] MEDS ORDERED: NOREPINEPHRINE 4 MG in SODIUM CHLORIDE 0.9% 250 ML IV SCH (07:00)
[2020-06-20 07:33] LABS: ABG Base Excess 4.1 mmol/L; ABG HCO3 33 mmol/L (21-25); ABG Oxygen Saturation 97.8 % (94-97); ABG PO2 137 mmHg (83-108); ABG TCO2 35 mmol/L (19-24)
[2020-06-20 07:34] LABS: ABG PCO2 87 mmHg (35-45); ABG PH 7.18 (7.35-7.45)
--- NOTE | 2020-06-20 07:38 | P.PN ---
Subjective Progress Note Date: 06/20/20 55-year-old male patient presented with shortness of breath and the patient had a COVID 19 associated pneumonia. The patient was diagnosed having COVID 19 likely 5 days ago. Patient symptoms as well as body ache and fatigue and subsequently fever and cough and shortness of breath. Her pulse ox at home and drop down to the 80s and for that reason the patient came into the hospital. She also had some nausea and emesis and some mild diarrhea. She was taking Tylenol for her fever in addition to Motrin. In the emergency, the patient's pulse ox was 86% on room air and she was tachycardic, sinus tachycardia. Her blood work showed an LDH level of 2547, CRP of 150, d-dimer of 0.8. Sodium level was 129. The patient had lymphopenia. The chest x-ray showed extensive bilateral consolidations most on the peripheries and spreading the upper lobes. A CT angiogram of the chest showed no evidence of any pulmonary embolism. The patient had patchy areas of no other consolidation in the lower lobes bilaterally along with some areas of groundglass and consolidations bilaterally. No evidence of any pleural effusion. No other major abnormalities. Patient is currently on oxygen and he is on 15 L of oxygen by nonrebreather facemask. He is also placed on Decadron 6 mg by mouth daily, Lovenox 40 mg subcu daily. At this point in time, the patient is on 15 L nonrebreather facemask. He has labored breathing even while talking and sometimes even at rest. 06/15/2020, the patient remains in the 100% nonrebreather facemask. Repeat chest x-ray was done and was reported that the patient has diffuse interstitial infiltrates bilaterally with probably some interval worsening. Clinically however, the patient is feeling better. He also was started on a combination of steroids and the patient received convalescent plasma 1 and he also received a dose of Actemra 140 mg IV. His blood work from today is showing a d-dimer of 0.95, LDH level is up to 2884 and the CRP level is down to 59.4. On today's evaluation of 06/16/2020 the patient is being seen for a follow-up. The patient is on high flow oxygen at 15 L through 100% nonrebreather facemask. He is also on 13 L per nasal cannula. He is feeling okay. His repeat chest x- ray showing stable bilateral pulmonary infiltrates. His pulse ox is ranging in the high 80s low 90s range. The patient desaturates easily with activity and talking. No new labs are available from today. The patient also received rece ived convalescent plasma 1 and he also received a dose of Actemra 640 mg IV. 06/17/2020 the patient is being seen in follow-up. I transferred the patient to the intensive care unit yesterday. At around 5 or 6 PM yesterday, the patient had increased cough and following that he felt some areas on the skin and sure enough he was developing pneumomediastinum and subcutaneous emphysema bilaterally. CAT scan of the chest was repeated yesterday and the findings were consistent with normal mediastinum and saphenous emphysema bilaterally extending to his neck. His pulse ox dropped down to the high 70s 11 years and often spelled. Otherwise, when rested, his pulse ox is in the order of 88%. Cur rently is on 15 L nasal cannula in addition to 100% nonrebreather facemask. D- dimer is at 17.6. LDH level is at 533. The patient remains on Decadron 6 mg orally and the patient is also on Lovenox 40 mg subcu every 12 hours. He is receiving IV fluids at the rate of 60 hour. He was given Tessalon Perles to suppress his cough. I'm going to add also promethazine for cough suppression. Is a bit anxious. He is comfortable. Slightly tachypneic he is not using his accessory muscles of breathing. He is subcutaneous emphysema is stable for now without any interval extension is face for the rest of the body. It's mainly involving the chest and the neck area. He is able to swallow.The patient also received received convalescent plasma 1 and he also received a dose of Actemra 640 mg IV. 06/18/2020, the patient is having some worsening in the subcutaneous emphysema. This is clinically on his examination and is also noted on the chest x-ray. There are also very tiny bilateral apical pneumothoraces seen on the chest x- ray. Meanwhile, the patient is currently on Airvo 60 Liters with an FiO2 of 90% and 100% nonrebreather on top. He is short of breath even at rest. He desaturates easily with cough and and moving. Currently is resting comfortably in bed. He is using incentive spirometer. He is quite anxious. At the same time, his inflammatory markers today showed a d-dimer of 21 and the patient also had a LDH level of 3892 from yesterday and the follow-up levels from today still pending. He does have some mild transaminitis related to COVID-19 infection. Electrolytes and renal function are both stable. In terms of treatment, the patient is still on Decadron at a dose of 6 mg on a daily basis. He remains on Lovenox 40 mg subcu every 12 hours and these will be continued. Patient IV fluids at 60 mL an hour. Despite his subcutaneous emphysema, he is able to swallow and he is having no aspiration. He is also on a combination of Tessalon Perles and promethazine to suppress his cough. Chest x-rays subcutaneous emphysema and pneumomediastinum which is quite extensive at this point in time. 06/19/2020, the patient is being monitored very closely in the intensive care unit. As mentioned earlier, the patient developed complications of COVID-19 related pneumonia with development of pneumomediastinum and subcutaneous emphysema bilaterally. He was moved to the intensive care unit and he was utilizing a combination of high flow oxygen and 100% nonrebreather facemask. He was on a high flow at 60 L with an FiO2 of 90% along with 100% nonrebreather facemask. He continues to have desaturations and at that point he was switched to a BiPAP at a pressure of 12/6 cm of water with an FiO2 of 100%. Along with the BiPAP, he does much better in his oxygenation saturation, 290 and up to 94%. This morning, he is sitting at edge of the bed and he is wearing his BiPAP. His face is slightly swollen and he continues to have subcutaneous emphysemaneck and chest area. The chest x-ray still showing bilateral subcutaneous emphysema and pneumomediastinum. There is also a tiny left apical pneumothorax. We have decided not to put any chest tubes on this patient for now. Clinically, there is no significant extension of his subcutaneous emphysema. The patient's LDH level is at 7846 and the CRP level is at 1.5. His CPK level is at 588. Sodium is at 1:30 and the white cell count is at 19.0 with a platelet count of 135. As noted, there has been some progressive drop in the platelet count. LDH remains quite elevated. The patient remains on Lovenox 40 mg subcu every 12 hours. His most recent d-dimer level was 21 and the repeat level is pending for now. He is also on Decadron 6 mg IV daily basis. He is on BiPAP for now. He is also receiving a combination of Tessalon Perles and promethazine for cough. He is anxious and he is slightly tachycardic. His current respiratory rate is in the mid 30s. He is able to generate tidal volumes of above 500 while on the BiPAP. 06/20/2020, the patient is being seen for a follow-up. The patient is a case of COVID-19 related pneumonia [place] by pneumomediastinum and bilateral subcutaneous emphysema. Overnight, he was kept on a BiPAP and the patient progressively became more hypoxic. He was on a BiPAP pressure of 12/6 with an FiO2 of 100%. I increased him up to 14/10 and later on up to 16/12 and despite that the patient continued to be hypoxic and in fact his pulse ox dropped down to the low 70s and he became more hypoxic and altered and agitated. During the course of his treatment, the patient's anxiety level is going up and he was becoming very much agitated. He was started on Precedex. Ultimately the decision was to intubate the patient put him on a mechanical ventilator. Radha alatorre is sedated with a combination of propofol and fentanyl and the patient is also paralyzed with Nimbex. He is on a mechanical ventilator. Patient is currently on propofol at a dose of 75 mcg/kg per minute. The patient is also paralyzed with Nimbex at a dose of 1 mg/kg per minute. He is on a mechanical ventilator currently on assist control mode with a tidal volume 400, rate of 34, FiO2 of 100% and PEEP of 20. Most recent blood gas showed a pH of 7.08 with a pO2 of 101 and pO2 164. The patient was given a total of 4 ampules of sodium bicarbonate regarding his underlying respiratory acidosis to correct his acidosis. The patient has become hypotensive. He received a total of 2 L of IV fluid and currently is on normal saline infusion. Norepinephrine is running at 0.1 mg/kg per minute for blood pressure support. On today's blood work, his white cell count is up to 29 with a hemoglobin of 17. BUN is 28 with a creatinine of 0.7. LFTs are slightly elevated. His chest x-ray post intubation shows no evidence of any pneumothorax. The patient has bilateral saphenous emphysema. ET tube is in a good location. On clinical examination, the patient has extensive subcutaneous emphysema bilaterally on involving his chest and his neck area. Otherwise, feels well sedated for now. Fentanyl was also added to support his sedation. He remains on Decadron at a dose of 6 mg IV every 24 hours. He is also on anticoagulation with Lovenox 40 mg subcu U 12 hours. Follow-up d-dimer today's at 35. Objective - Vital Signs Vital signs: Vital Signs Temp 100.2 F H 06/20/20 00:00 Pulse 99 06/20/20 06:45 Resp 34 H 06/20/20 06:45 BP 105/60 06/20/20 06:00 Pulse Ox 97 06/20/20 06:45 Intake & Output 06/19/20 06/20/20 06/20/20 18:59 06:59 18:59 Intake Total 825 617.958 Output Total 550 1650 Balance 275 -1032.042 Weight 63.5 kg Intake: IV 562 Dextrose 5%-0.9% NaCl 1, 550 000 ml @ 50 mls/hr IV . Q20H BR[facility] Rx#:[id number] pressure bag 12 Intake, IV Titration 600 55.958 Amount Dexmedetomidine/0.9% NaCl 5.958 (Pmx) 400 mcg In Empty Bag 1 bag @ Titrate IV . Q0M [facility] Rx#:[id number] Dextrose 5%-0.9% NaCl 1, 600 50 000 ml @ 50 mls/hr IV . Q20H [facility] Rx#:[id number] Oral 225 Output: Urine 550 1650 Other: Voiding Method Urinal # Voids 0 ABP, PAP, CO, CI - Last Documented Arterial Blood Pressure 93/60 - Exam Sedated, paralyzed, intubated on a mechanical ventilator. Orotracheal and orogastric tube are both in place. On examination, the patient has subcutaneous emphysema involving the face, around the eyes and orbits, neck and upper chest and there is also extending to his upper extremities. His emphysema was present earlier if there is no significant progression. Head exam was generally normal. There was no scleral icterus or corneal arcus. Mucous membranes were moist. Neck was supple and without jugular venous distension, thyromegaly, or carotid bruits. Carotids were easily palpable bilaterally. There was no adenopathy. Lungs sounds reveal crackles in the mid and lower lung driver bilaterally and the patient is extensive crackling, and there is evidence of subcutaneous emphysema. Cardiac exam revealed the PMI to be normally situated and sized. The rhythm was regular and no extrasystoles were noted during several minutes of auscultation. The first and second heart sounds were normal and physiologic splitting of the second heart sound was noted. There were no murmurs, rubs, clicks, or gallops. Abdominal exam revealed normal bowel sounds. The abdomen was soft, non-tender, and without masses, organomegaly, or appreciable enlargement of the abdominal aorta. Examination of the extremities revealed easily palpable radial, femoral and pedal pulses. There was no cyanosis, clubbing or edema. Examination of the skin revealed no evidence of significant rashes, suspicious appearing nevi or other concerning lesions. Neurologically, sedated and paralyzed. - Labs CBC & Chem 7: 06/20/20 03:45 06/20/20 03:45 Labs: Abnormal Lab Results - Last 24 Hours (Table) 06/19/20 06/19/20 06/19/20 Range/Units 03:03 11:50 17:34 WBC (3.8-10.6) k/uL Plt Count (150-450) k/uL D-Dimer (<0.60) mg/L FEU ABG pH (7.35-7.45) ABG pCO2 (35-45) mmHg ABG pO2 (83-108) mmHg ABG HCO3 (21-25) mmol/L ABG Total CO2 (19-24) mmol/L ABG O2 Saturation (94-97) % Sodium (137-145) mmol/L Potassium (3.5-5.1) mmol/L Chloride (98-107) mmol/L Carbon Dioxide (22-30) mmol/L BUN (9-20) mg/dL Glucose (74-99) mg/dL POC Glucose (mg/dL) 151 H 142 H (75-99) mg/dL Calcium (8.4-10.2) mg/dL Ferritin 3144.8 H (22.0-322.0) ng/mL AST (17-59) U/L ALT (4-49) U/L Alkaline Phosphatase (38-126) U/L Creatine Kinase (55-170) U/L C-Reactive Protein (<1.0) mg/dL Total Protein (6.3-8.2) g/dL Albumin (3.5-5.0) g/dL 06/19/20 06/20/20 06/20/20 Range/Units 22:20 03:39 03:45 WBC 29.6 H (3.8-10.6) k/uL Plt Count 124 L (150-450) k/uL D-Dimer (<0.60) mg/L FEU ABG pH 7.22 L (7.35-7.45) ABG pCO2 78 H* (35-45) mmHg ABG pO2 47 L* 29 L* (83-108) mmHg ABG HCO3 28 H 32 H (21-25) mmol/L ABG Total CO2 29 H 34 H (19-24) mmol/L ABG O2 Saturation 82.8 L 38.6 L (94-97) % Sodium (137-145) mmol/L Potassium (3.5-5.1) mmol/L Chloride (98-107) mmol/L Carbon Dioxide (22-30) mmol/L BUN (9-20) mg/dL Glucose (74-99) mg/dL POC Glucose (mg/dL) (75-99) mg/dL Calcium (8.4-10.2) mg/dL Ferritin (22.0-322.0) ng/mL AST (17-59) U/L ALT (4-49) U/L Alkaline Phosphatase (38-126) U/L Creatine Kinase (55-170) U/L C-Reactive Protein (<1.0) mg/dL Total Protein (6.3-8.2) g/dL Albumin (3.5-5.0) g/dL 06/20/20 06/20/20 06/20/20 Range/Units 03:45 03:45 04:23 WBC (3.8-10.6) k/uL Plt Count (150-450) k/uL D-Dimer >35.20 H (<0.60) mg/L FEU ABG pH 7.08 L* (7.35-7.45) ABG pCO2 101 H* (35-45) mmHg ABG pO2 164 H (83-108) mmHg ABG HCO3 30 H (21-25) mmol/L ABG Total CO2 33 H (19-24) mmol/L ABG O2 Saturation 97.9 H (94-97) % Sodium 132 L (137-145) mmol/L Potassium 5.4 H (3.5-5.1) mmol/L Chloride 95 L (98-107) mmol/L Carbon Dioxide 31 H (22-30) mmol/L BUN 28 H (9-20) mg/dL Glucose 162 H (74-99) mg/dL POC Glucose (mg/dL) (75-99) mg/dL Calcium 8.3 L (8.4-10.2) mg/dL Ferritin (22.0-322.0) ng/mL AST 131 H (17-59) U/L ALT 92 H (4-49) U/L Alkaline Phosphatase 310 H (38-126) U/L Creatine Kinase 501 H (55-170) U/L C-Reactive Protein 3.7 H (<1.0) mg/dL Total Protein 6.0 L (6.3-8.2) g/dL Albumin 3.3 L (3.5-5.0) g/dL Assessment and Plan Plan: 1 acute Covid 19 pneumonia with secondary shortness of breath. Patient was diagnosed on 06/08/2020. Symptoms started on 06/07/2020 the patient rapidly progressed and the patient is coming in with worsening shortness of breath and bilateral pneumonia and extensive consolidation. Chest x-ray showing still tiny biapical pneumothoraces and the patient also has extensive subcutaneous emphysema and pneumomediastinum. This a complicated case of COVID-19 related infection/pneumonia and the patient is being managed conservatively. The patient was on BiPAP over the past 48 hours and earlier this morning the patient decompensated, became more hypoxic and the patient had to be intubated and placed on a mechanical ventilator. Post intubation, the patient became also hypotensive. Currently we are allowing permissive hypercapnia and the patient is being ventilated with low tidal volumes. He has some respiratory acidosis and bicarbonate was given. Oxidation however is improved based on the most recent blood gas. The patient has seasonal. The patient is currently on pressors. He is sedated. He is paralyzed. Peak and static pressures are elevated with a peak airway pressure of 38 with an ascending aortic pressure of 36. PF ratio is low. 2 acute hypoxic respiratory failure currently on intubated on a mechanical ventilator. 3 acute leukocytosis 4 elevated inflammatory markers secondary to above, LDH level remains considerably elevated with white cell count 5 hypotension post intubation. This is related to the elevated intrathoracic pressure of a significant respiratory acidosis. The patient encounter. Currently on IV fluids. Currently on pressors. The patient is also receiving bicarbonate. 6 acute respiratory acidosis/permissive hypercapnia 7 thrombocytopenia, platelet count needs to be monitored 8 increased anxiety prior to intubation the patient was receiving Precedex which is currently on hold. Plan Keep this patient sedated and paralyzed. The patient is currently on a combination of propofol and fentanyl and Nimbex Continue same vent settings and awaiting repeat blood gases. Necessity ventilator changes were done and the most recent blood gases showed improvement and acid base status and the patient has a pH of 7.1 with a pCO2 of 86 and pO2 of 137. Continue D5 point at the rate of 150 mL an hour Transfused with a unit convalescent plasma Received Tocilizumab 634 mg IV 1 Monitor inflammatory markers, LDH level is still elevated Continue Lovenox Continue pressors for hemodynamic support Monitor the platelet counts The patient on IV cefepime empiric coverage 2 g every 12 hours Wean off pressors as tolerated to maintain a mean arterial pressure above 65 Monitor subcutaneous emphysema and watch for. Developed with of any p neumothorax Condition is critical at this point, the patient will be monitored. Critical care time more than 30 minutes. Time with Patient: Greater than 30
[2020-06-20 07:58] LABS: LDH 9901 U/L (313-618)
[2020-06-20] MEDS ORDERED: CEFEPIME 2 GM in SODIUM CHLORIDE 0.9% 100 ML IVPB ONE (08:00)
--- NOTE | 2020-06-20 08:57 | XR ---
EXAMINATION TYPE: XR chest 1V portable DATE OF EXAM: 06/20/2020 Comparison: 06/20/2020 Clinical History: 55-year-old male rule out pneumomediastinum, pneumothorax Findings: ET tube satisfactory. NG tube courses below the diaphragm. Hyperinflation. Heart normal size. There i s severe subcutaneous emphysema overlying the bilateral chest lazo. A linear density is vertically o riented along the left cardiomediastinal margin but external artifact is suspected. Curvilinear densi ty projecting at the right apex measuring 7 mm. Groundglass changes without pleural effusion. Impression: 1. COPD with interval development of fairly severe disease emphysema along both chest lazo. This sig nificantly limits assessment for underlying lung disease. 2. Unable to exclude a small 7 mm right apical pneumothorax versus artifact from the subcutaneous emp hysema. There is an additional vertically oriented line along the left cardiomediastinum that is susp ected to represent external artifact rather than pneumothorax or pneumomediastinum. Short interval fo llow-up recommended. 3. Patient's groundglass infiltrates persist but are more difficult to appreciate due to the subcutan eous emphysema.
[2020-06-20] MEDS: DEXTROSE 5%-0.9% NACL 1,000 ML IV SCH ×2 (09:05→18:41)
[2020-06-20] MEDS: ZINC SULFATE 220 MG CAP PO SCH (09:57)
[2020-06-20] MEDS: CHOLECALCIFEROL 25 MCG (1000 IU) TABLET PO SCH (09:57)
[2020-06-20] MEDS: ASCORBIC ACID 500 MG TAB PO SCH (09:57)
[2020-06-20] MEDS: ENOXAPARIN 40 MG/0.4 ML SYRINGE SQ SCH ×2 (09:57→20:16)
[2020-06-20] MEDS: DEXAMETHASONE SOD PHOSPHATE 10 MG/ML 1 ML VIAL IV SCH (09:57)
[2020-06-20] MEDS: CHLORHEXIDINE GLUCONATE 15 ML CUP MUCOUS MEM SCH ×2 (09:58→20:16)
[2020-06-20] MEDS: PANTOPRAZOLE 40 MG/10 ML VIAL IVP SCH (09:58)
[2020-06-20] MEDS: CLOTRIMAZOLE TROCHE 10 MG TROCHE MUCOUS MEM SCH (09:58)
[2020-06-20] MEDS: NOREPINEPHRINE 4 MG in SODIUM CHLORIDE 0.9% 250 ML IV SCH ×4 (10:00→22:22)
[2020-06-20] MEDS ORDERED: LIDOCAINE 1% INJ 10MG/ML (20 ML MDV) ONE (10:08)
--- NOTE | 2020-06-20 10:47 | P.GSCN ---
History of Present Illness Consult date: 06/20/20 Reason for Consult: Pneumomediastinum Requesting physician: Surinder Dominique History of present illness: This is a 55-year-old gentleman who follows on an outpatient basis with Dr. Maxwell Alexander for primary care. He has no significant previous medical history. He presented to [facility] with complaints of shortness of breath associated with COVID-19 pneumonia. Symptoms included body aches, fatigue, fever, cough, nausea, emesis, diarrhea, along with his shortness of breath and hypoxia with oxygen saturation in the 80s. LDH, CRP, d-dimer were all elevated. Chest x-ray demonstrated extensive bilateral consolidations. CT of the chest found no evidence of pulmonary embolism, there was patchy areas of consolidation in the lower lobes bilaterally along with areas of groundglass consolidations bilaterally. He was admitted for evaluation and treatment and placed on Decadron, Lovenox, and nonrebreather facemask. He did receive Actemra. A couple of days after admission he was transferred to the intensive care unit for closer follow-up. After significant coughing he was found to have areas of subcutaneous emphysema bilaterally. CT scan of the chest was completed and findings were consistent with pneumomediastinum and subcutaneous emphysema. He was given cough medication to try to suppress his cough. He was requiring both nonrebreather mask as well as 15 L high flow nasal cannula and oxygen saturations continued to be in the 80s. He received convalescent plasma. He was advanced to BiPAP and oxygen saturations did temporarily improve, his inflammatory markers did start to improve, however in the last 24 hours his inflammatory markers have elevated again and he was not tolerating BiPAP and was subsequently intubated this morning. Due to continued concern for pneumomediastinum cardiothoracic surgery was consulted for surgical recommendations. Review of Systems ROS unobtainable: due to endotracheal tube Past Medical History Past Medical History: No Reported History History of Any Multi-Drug Resistant Organisms: None Reported Past Surgical History: Orthopedic Surgery Additional Past Surgical History / Comment(s): surgery on hyloid surgery Past Anesthesia/Blood Transfusion Reactions: No Reported Reaction Past Psychological History: No Psychological Hx Reported Smoking Status: Never smoker Past Alcohol Use History: Occasional Past Drug Use History: None Reported - Past Family History Father Additional Family Medical History / Comment(s): none Medications and Allergies Home Medications Medication Instructions Recorded Confirmed Type No Known Home Medications 06/14/20 06/14/20 History Allergies Allergy/AdvReac Type Severity Reaction Status Date / Time No Known Allergies Allergy Verified 06/14/20 07:39 Surgical - Exam Vital Signs Temp Pulse Resp BP Pulse Ox 97.8 F 101 H 18 114/75 86 L 06/13/20 22:22 06/13/20 22:22 06/13/20 22:22 06/13/20 22:22 06/13/20 22:22 CONSTITUTIONAL: Currently sedated and paralyzed on mechanical ventilation EYES: Pupils equal, round, reactive to light, normal ocular movement ENT: Moist mucous membranes without oral lesions present NECK: No masses, no bruits, trachea midline RESPIRATORY: Lungs sounds diminished to auscultation bilaterally. Currently on mechanical ventilation, assist control mode, FiO2 75%, PEEP 18, tidal volume 4 00, respiratory rate 34. 8.0 ET tube present, 25 at the lip. Subcutaneous emphysema present to the chest, arms, neck, lower face. CARDIOVASCULAR: S1, S2 present. Regular rate and rhythm, sinus rhythm on telemetry with heart rate in the high 90s. Palpable peripheral pulses bilaterally. Trace generalized edema present. SCDs present. GASTROINTESTINAL: Abdomen soft, nontender, nondistended without masses or organomegaly noted. There is no rebound or guarding present. Hypoactive bowel sounds present 4 quadrants. OG tube present to low intermittent suction. GENITOURINARY: Indwelling catheter present draining clear, yellow urine. Urine output 100-150 mL per hour overnight INTEGUMENTARY: Skin is warm and dry NEUROLOGIC: Unable to assess as patient is currently receiving IV paralytic Results - Labs 06/20/20 03:45 06/20/20 03:45 Abnormal Lab Results - Last 24 Hours (Table) 06/19/20 06/19/20 06/19/20 Range/Units 11:50 17:34 22:20 WBC (3.8-10.6) k/uL Plt Count (150-450) k/uL D-Dimer (<0.60) mg/L FEU ABG pH (7.35-7.45) ABG pCO2 (35-45) mmHg ABG pO2 47 L* (83-108) mmHg ABG HCO3 28 H (21-25) mmol/L ABG Total CO2 29 H (19-24) mmol/L ABG O2 Saturation 82.8 L (94-97) % Sodium (137-145) mmol/L Potassium (3.5-5.1) mmol/L Chloride (98-107) mmol/L Carbon Dioxide (22-30) mmol/L BUN (9-20) mg/dL Glucose (74-99) mg/dL POC Glucose (mg/dL) 151 H 142 H (75-99) mg/dL Calcium (8.4-10.2) mg/dL AST (17-59) U/L ALT (4-49) U/L Alkaline Phosphatase (38-126) U/L Lactate Dehydrogenase (313-618) U/L Creatine Kinase (55-170) U/L C-Reactive Protein (<1.0) mg/dL Total Protein (6.3-8.2) g/dL Albumin (3.5-5.0) g/dL 06/20/20 06/20/20 06/20/20 Range/Units 03:39 03:45 03:45 WBC 29.6 H (3.8-10.6) k/uL Plt Count 124 L (150-450) k/uL D-Dimer (<0.60) mg/L FEU ABG pH 7.22 L (7.35-7.45) ABG pCO2 78 H* (35-45) mmHg ABG pO2 29 L* (83-108) mmHg ABG HCO3 32 H (21-25) mmol/L ABG Total CO2 34 H (19-24) mmol/L ABG O2 Saturation 38.6 L (94-97) % Sodium 132 L (137-145) mmol/L Potassium 5.4 H (3.5-5.1) mmol/L Chloride 95 L (98-107) mmol/L Carbon Dioxide 31 H (22-30) mmol/L BUN 28 H (9-20) mg/dL Glucose 162 H (74-99) mg/dL POC Glucose (mg/dL) (75-99) mg/dL Calcium 8.3 L (8.4-10.2) mg/dL AST 131 H (17-59) U/L ALT 92 H (4-49) U/L Alkaline Phosphatase 310 H (38-126) U/L Lactate Dehydrogenase 9901 H (313-618) U/L Creatine Kinase 501 H (55-170) U/L C-Reactive Protein 3.7 H (<1.0) mg/dL Total Protein 6.0 L (6.3-8.2) g/dL Albumin 3.3 L (3.5-5.0) g/dL 06/20/20 06/20/20 06/20/20 Range/Units 03:45 04:23 07:31 WBC (3.8-10.6) k/uL Plt Count (150-450) k/uL D-Dimer >35.20 H (<0.60) mg/L FEU ABG pH 7.08 L* 7.18 L* (7.35-7.45) ABG pCO2 101 H* 87 H* (35-45) mmHg ABG pO2 164 H 137 H (83-108) mmHg ABG HCO3 30 H 33 H (21-25) mmol/L ABG Total CO2 33 H 35 H (19-24) mmol/L ABG O2 Saturation 97.9 H 97.8 H (94-97) % Sodium (137-145) mmol/L Potassium (3.5-5.1) mmol/L Chloride (98-107) mmol/L Carbon Dioxide (22-30) mmol/L BUN (9-20) mg/dL Glucose (74-99) mg/dL POC Glucose (mg/dL) (75-99) mg/dL Calcium (8.4-10.2) mg/dL AST (17-59) U/L ALT (4-49) U/L Alkaline Phosphatase (38-126) U/L Lactate Dehydrogenase (313-618) U/L Creatine Kinase (55-170) U/L C-Reactive Protein (<1.0) mg/dL Total Protein (6.3-8.2) g/dL Albumin (3.5-5.0) g/dL Diabetes panel 06/20/20 Range/Units 03:45 Sodium 132 L (137-145) mmol/L Potassium 5.4 H (3.5-5.1) mmol/L Chloride 95 L (98-107) mmol/L Carbon Dioxide 31 H (22-30) mmol/L BUN 28 H (9-20) mg/dL Creatinine 0.75 (0.66-1.25) mg/dL Glucose 162 H (74-99) mg/dL Calcium 8.3 L (8.4-10.2) mg/dL AST 131 H (17-59) U/L ALT 92 H (4-49) U/L Alkaline Phosphatase 310 H (38-126) U/L Total Protein 6.0 L (6.3-8.2) g/dL Albumin 3.3 L (3.5-5.0) g/dL Calcium panel 06/20/20 Range/Units 03:45 Calcium 8.3 L (8.4-10.2) mg/dL Albumin 3.3 L (3.5-5.0) g/dL Pituitary panel 06/20/20 Range/Units 03:45 Sodium 132 L (137-145) mmol/L Potassium 5.4 H (3.5-5.1) mmol/L Chloride 95 L (98-107) mmol/L Carbon Dioxide 31 H (22-30) mmol/L BUN 28 H (9-20) mg/dL Creatinine 0.75 (0.66-1.25) mg/dL Glucose 162 H (74-99) mg/dL Calcium 8.3 L (8.4-10.2) mg/dL Adrenal panel 06/20/20 Range/Units 03:45 Sodium 132 L (137-145) mmol/L Potassium 5.4 H (3.5-5.1) mmol/L Chloride 95 L (98-107) mmol/L Carbon Dioxide 31 H (22-30) mmol/L BUN 28 H (9-20) mg/dL Creatinine 0.75 (0.66-1.25) mg/dL Glucose 162 H (74-99) mg/dL Calcium 8.3 L (8.4-10.2) mg/dL Total Bilirubin 1.1 (0.2-1.3) mg/dL AST 131 H (17-59) U/L ALT 92 H (4-49) U/L Alkaline Phosphatase 310 H (38-126) U/L Total Protein 6.0 L (6.3-8.2) g/dL Albumin 3.3 L (3.5-5.0) g/dL - Imaging Chest x-ray: report reviewed, image reviewed CT scan - chest: report reviewed, image reviewed Assessment and Plan Assessment: 1. Acute COVID-19 pneumonia 2. Pneumomediastinum, subcutaneous emphysema 3. Acute hypoxic respiratory failure, currently on mechanical ventilation 4. Elevated inflammatory markers secondary to cold that 5. Leukocytosis, thrombocytopenia 6. Hypotension post intubation, currently on pressors 7. Respiratory acidosis Plan: The patient was seen and examined in the intensive care unit. Chart/diagnostics were reviewed. Will discuss the case with Dr. Sawant. Continue mechanical ventilation, IV pressors, sedation, paralytic, COVID-19 pneumonia management per doctor of naprapathic medicine. I/DVT prophylaxis. More recommendations to follow Thank you Dr. Dominique for this consult Time with Patient: Greater than 30
--- NOTE | 2020-06-20 10:50 | P.PN ---
Progress Note - Text Progress Note Date: 06/20/20 06/20/2020, the patient is being seen for a follow-up. The patient is a case of COVID-19 related pneumonia [place] by pneumomediastinum and bilateral subcutaneous emphysema. Overnight, he was kept on a BiPAP and the patient progressively became more hypoxic. He was on a BiPAP pressure of 12/6 with an FiO2 of 100%. I increased him up to 14/10 and later on up to 16/12 and despite that the patient continued to be hypoxic and in fact his pulse ox dropped down to the low 70s and he became more hypoxic and altered and agitated. During the course of his treatment, the patient's anxiety level is going up and he was becoming very much agitated. He was started on Precedex. Ultimately the d ecision was to intubate the patient put him on a mechanical ventilator. Currently is sedated with a combination of propofol and fentanyl and the patient is also paralyzed with Nimbex. He is on a mechanical ventilator. Patient is currently on propofol at a dose of 75 mcg/kg per minute. The patient is also paralyzed with Nimbex at a dose of 1 mg/kg per minute. He is on a mechanical ventilator currently on assist control mode with a tidal volume 400, rate of 34, FiO2 of 100% and PEEP of 20. Most recent blood gas showed a pH of 7.08 with a pO2 of 101 and pO2 164. The patient was given a total of 4 ampules of sodium bicarbonate regarding his underlying respiratory acidosis to correct his acidosis. The patient has become hypotensive. He received a total of 2 L of IV fluid and currently is on normal saline infusion. Norepinephrine is running at 0.1 mg/kg per minute for blood pressure support. On today's blood work, his white cell count is up to 29 with a hemoglobin of 17. BUN is 28 with a creatinine of 0.7. LFTs are slightly elevated. His chest x-ray post intubation shows no evidence of any pneumothorax. The patient has bilateral saphenous emphysema. ET tube is in a good location. On clinical examination, the patient has extensive subcutaneous emphysema bilaterally on involving his chest and his neck area. Otherwise, feels well sedated for now. Fentanyl was also added to support his sedation. He remains on Decadron at a dose of 6 mg IV every 24 hours. He is also on anticoagulation with Lovenox 40 mg subcu U 12 hours. Follow-up d-dimer today's at 35. Patient was seen by Dr. Kern early this morning, his condition deteriorated, patient required intubation and mechanical ventilation. His ABG after intubation remains very poor. Patient developed worsening subcutaneous emphysema, however his chest x-ray could not rule out a very tiny right apical pneumothorax versus artifact. Continues to have groundglass infiltrates bilaterally. Because of his worsening subcutaneous emphysema, thoracic surgery was consulted. ABG post intubation showed a pO2 of 137 pCO2 of 87 pH of 7.18. Patient has significantly elevated WBC count of 29.6. Hemoglobin is 17. Veena lites are normal except for potassium of 5.4. Renal profile is normal. His inflammatory markers are worse with LDH of almost 10,000. And C-reactive protein is 501. Obviously the patient is taking a downhill course, and he is clinically deteriorating. He is now on assist control rate of 34 tidal volume is 400 FiO2 is 75% PEEP of 18 peak airway pressure is 35 and plateau pressure is 32. Fluids-rodriguez he is on IV fluid at KVO, propofol at 75 fentanyl 2 Nimbex at one and norepinephrine at 0.2. Physical exam: Gen.: basically unchanged, patient is paralyzed and sedated. Orogastric tube and endotracheal tube are intact. HEENT: PERRLA, EOMI, nonicteric. Chest: Crackles and rhonchi bilaterally. Significant subcutaneous emphysema noted anteriorly and crepitation noted. Cardiac exam: Normal S1 and S2, no gallops. Abdomen: Soft nontender no megaly no rebound. Extremities: No clubbing edema or cyanosis. Skin: No rashes. Urologically patient is sedated and paralyzed. Impression: Acute hypoxic respiratory failure secondary to COVID-19 pneumonia Acute leukocytosis, suspect underlying secondary bacterial or fungal infection. Elevated inflammatory markers and seems to be worsening. Hypotension post intubation, will receive fluids, Thrombocytopenia etiology not clear. But most likely secondary to sepsis. Recommendation: Continue ventilatory support. Continue sedation and paralysis. Including fentanyl Nimbex on propofol. Thoracic surgery to see her on consultation for his worsening subcu emphysema. And questionable pneumothorax. Continue IV fluid at 150 MLS per hour. Patient received toci and convalescent plasma. Continue GI and DVT prophylaxis. Continue nutritional support. Placed on enteral feeding. Continue Lovenox. Continue antibiotics and antifungal treatment. Recheck blood cultures and sputum cultures. Condition remains critical. Critical care time is over 30 minutes in addition to what Dr. Kern did earlier today
[2020-06-20 11:35] LABS: Glucose,Whole Blood 203 mg/dL (75-99)
[2020-06-20] MEDS: INSULIN ASPART (NovoLOG) 100 UNIT/ML VIAL SQ SCH ×2 (11:40→18:40)
--- NOTE | 2020-06-20 13:08 | P.PN ---
Subjective Progress Note Date: 06/20/20 HISTORY OF PRESENT ILLNESS This is a 55-year-old male patient of Dr. Maxwell Alexander with significant past medical history. Patient states he started having symptoms on June 01 and was diagnosed with COVID-19 on June 08. Patient symptoms or body aches and fatigue as well as cough with white sputum production, increasing shortness of breath and measured pulse ox at home which worsened. He complains of headache chills and nausea. Patient presented to [facility] emergency center for evaluation. Patient was afebrile, heart rate 101, blood pressure 114/75, pulse ox 86% on room air. WBC 6.4, hemoglobin 16.2, platelet count 153. D-dimer 0.84. AST 106, ALT 44, alkaline phosphatase 57, LDH 2547. CRP 150. Sodium 129, potassium 4.6, chloride 97, CO2 23, BUN 12 and creatinine 0.84. Blood sugar 114. Chest x-ray reveals extensive pulmonary infiltrates related to pneumonia and ARDS. CTA of the chest reveals no pulmonary embolism. Patchy areas of nodular consolidations in the bilateral lower lobes with groundglass consolidation of the peripheral of the bilateral upper lobes consistent with multifocal infection compatible with Covid pneumonia. No pleural effusions or pneumothorax. Patient has been seen by pulmonary medicine is not a candidate f or Remdesivir. Convalescent plasma has been ordered as well as Tocilizumab 1 dose. Patient is currently pulse ox 95% on 15 L nonrebreather. 06/15: Repeat chest x-ray reveals worsening infiltrates. Patient is currently on nonrebreather and nasal cannula with pulse ox of 89%. Patient states that he is not sleeping because of coughing. He continues to have cough, shortness of breath. Noted to be tachypneic. Patient states he is eating okay. Melatonin, Flonase and Tessalon Perles added. Patient has been afebrile, heart rate 87, respiratory rate 32, blood pressure 112/70. Repeat blood work reveals WBC 11.4, hemoglobin 15.4, platelet count 208. D-dimer 0.95. Sodium 136 other electroly jagdeep and renal function normal. Blood sugar 118. AST 96, ALT 67, alkaline phosphatase 70. LDH 2884. C-reactive protein 59.4. 06/16: Patient's pulse ox is 90-92% on high flow nasal cannula at 13 L along with 100% nonrebreather. Patient was seen by Dr. Kern plan is to try and wean off 100% oxygen. Patient states that his breathing is stable today. He continues to have shortness of breath with minimal activity and cough. Patient started on mycelex noemi for thrush. He has been afebrile, heart rate 80, blood pressure 114/69. Repeat chest x-ray reveals improving bilateral lung infiltra jagdeep. Patient is continued on dexamethasone, Lovenox and vitamin supplements. 06/17: Yesterday afternoon, received call the patient had subcutaneous emphysema that was new and stat chest x-ray was ordered. This revealed interval development of subcutaneous emphysema within the bilateral neck. Some pneumo mediastinum may be present as the source. Pneumothorax is identified. This was reviewed by Dr. Kern at the time. Last evening at 2200, A-Team was called for puffiness of the neck and shoulder skin. Repeat chest x-ray revealed prominent interval increase in subcutaneous emphysema pattern. Patient was transferred to the intensive care unit. Patient has been seen in the intensive care unit today. He remains on 15 L high flow nasal cannula in addition to 100% nonrebreather facemask. D-dimer is 17.6, LDH 533. Patient remains on Decadron, Lovenox and supplements. Promethazine was added for cough suppression. Subcutaneous emphysema is stable. 06/18 patient evaluated bedside has worsening subcutaneous emphysema. Does appear anxious on examination. He is on Xanax to 0.25 mg twice a day with no improvement in patient's and slightly. We'll repeat chest x-ray does suggest tiny pneumothorax in addition to subcutaneous emphysema. Patient is currently maintaining oxygen saturation on interval 60 L with FiO2 of 90% with a nonrebreather 100%. Minimum exertion is causing desaturation. Patient appears to have worsening inflammation markers including worsening LDH and liver enzymes. Pulmonary care for management of the Covid. Continues to keep patient on dexamethasone, convalescent plasma. Patient is not a candidate for remdesivir. We will start patient on Lexapro 10 mg daily at bedtime to help with anxiety. IV fluids switch to D5NS as patient is not eating being on mask and is hungry. 06/19 patient evaluated bedside has worsening subcutaneous emphysema, facial swelling and pneumomediastinum. Patient is alert and keeping saturation 90-92% on BiPAP. He appears anxious and is breathing at 26 respiratory rate per minute. Blood pressure 1:30/74 heart rate of 113.chest x-rays consistent with bilateral subcutaneous emphysema and pneumomediastinum any apical pneumothorax dizzy and chest tube at this point. On evaluation patient's labs patient's leukocytosis and 19 sodium stable at 1:30, creatinine 0.67 and ferritin is 3144 elevated liver enzymes early at 7846 increased from prior low albumin. patient continues to have increased in size the despite initiation of Remeron will increase Remeron to 30 mg at bedtime Xanax increased to 0.5 twice a day f rom 0.25. Ativan can be given if patient is unable to tolerate oral medication. Plan to start patient on TPN tomorrow. Low sodium could be a results of D5W 06/20: Repeat blood work reveals WBC 29.6, hemoglobin 17, platelet count 124. D- dimer greater than 35. Sodium 132, potassium 5.4, chloride 95, CO2 31, BUN 28 creatinine 0.75. Blood sugar 162. AST 131, ALT 92, alkaline phosphatase 310. LDH 9901. CK 501. C-reactive protein 3.7. Patient became more hypoxic during the night with pulse ox down to the low 70s with mental status changes. Patient was intubated and placed on mechanical ventilation. Tidal volume 400, FiO2 of 75% and PEEP of 18. He is on propofol, Nimbex, levo fed was started and he is status post 2 L of IV fluid. He has on a fentanyl drip. Patient has extensive subcutaneous emphysema. Remeron and clotrimazole discontinued REVIEW OF SYSTEMS Unable to obtain due to intubation. PHYSICAL EXAMINATION Physical exam deferred due to positive Covid 19 and intubation. Gen: This is a 55-year-old male. He is resting in ICU bed appears to be comfortable. No respiratory distress noted. HEENT: Head is atraumatic, normocephalic. NECK: Subcutaneous emphysema. ASSESSMENT AND PLAN 1. Acute hypoxic respiratory failure secondary to Covid 19 pneumonia requiring intubation and Rosado ventilation on 06/19. Patient has been seen by pulmonary medicine status post Convalescent plasma and Tocilizumab 1 dose. Continue dexamethasone 6 mg every 24 hours, Lovenox 40 mg subcu twice daily, vitamins. Patient is currently on oxygen at 153 L high flow nasal cannula and 100% nonrebreather 2. Elevated inflammatory markers secondary to Covid 19. Continue to monitor. 3. Mild hyponatremia. Continue IV fluids. 4. Elevated d-dimer. Acute pulmonary embolism has been ruled out by CTA. 5. Lymphocytopenia secondary to Covid 19. 6. Thrush. Patient started on Mycelex troches. 7. Subcutaneous emphysema and pneumomediastinum, stable. 8. GI prophylaxis. Protonix daily. 9. DVT prophylaxis. Lovenox. Prognosis is guarded. Impression and plan of care have been directed as dictated by the signing physician. Cathy Quintanilla nurse practitioner acting as scribe for signing physician. Objective - Vital Signs Vital signs: Vital Signs Temp 98.3 F 06/20/20 12:00 Pulse 105 H 06/20/20 12:00 Resp 34 H 06/20/20 12:00 BP 105/60 06/20/20 06:00 Pulse Ox 91 L 06/20/20 12:00 Intake & Output 06/19/20 06/20/20 06/20/20 18:59 06:59 18:59 Intake Total 825 617.958 963.733 Output Total 550 1650 360 Balance 275 -1032.042 603.733 Weight 63.5 kg 63.5 kg Intake: IV 562 618 Dextrose 5%-0.9% NaCl 1, 550 600 000 ml @ 100 mls/hr IV . Q10H BRISEYDA Rx#:[id number] pressure bag 12 18 Intake, IV Titration 600 55.958 345.733 Amount Cefepime 2 gm In Sodium 100 Chloride 0.9% 100 ml @ 200 mls/hr IVPB ONCE ONE Rx#:[id number] Dexmedetomidine/0.9% NaCl 5.958 (Pmx) 400 mcg In Empty Bag 1 bag @ Titrate IV . Q0M BRISEYDA Rx#:[id number] Dextrose 5%-0.9% NaCl 1, 600 50 000 ml @ 100 mls/hr IV . Q10H BRISEYDA Rx#:[id number] fentaNYL (PF). 1,000 mcg 72.39 In Sodium Chloride 0.9% 80 ml @ Per Protocol IV . Q0M BRISEYDA Rx#:[id number] propofoL 1,000 mg In 173.343 Empty Bag 1 bag @ Titrate IV .Q0M BRISEYDA Rx#: [id number] Oral 225 Output: Urine 550 1650 360 Other: Voiding Method Urinal Indwelling Catheter Indwelling Catheter # Voids 0 ABP, PAP, CO, CI - Last Documented Arterial Blood Pressure 96/66 - Labs CBC & Chem 7: 06/20/20 03:45 06/20/20 03:45 Labs: Abnormal Lab Results - Last 24 Hours (Table) 06/19/20 06/19/20 06/20/20 Range/Units 17:34 22:20 03:39 WBC (3.8-10.6) k/uL Plt Count (150-450) k/uL D-Dimer (<0.60) mg/L FEU ABG pH 7.22 L (7.35-7.45) ABG pCO2 78 H* (35-45) mmHg ABG pO2 47 L* 29 L* (83-108) mmHg ABG HCO3 28 H 32 H (21-25) mmol/L ABG Total CO2 29 H 34 H (19-24) mmol/L ABG O2 Saturation 82.8 L 38.6 L (94-97) % Sodium (137-145) mmol/L Potassium (3.5-5.1) mmol/L Chloride (98-107) mmol/L Carbon Dioxide (22-30) mmol/L BUN (9-20) mg/dL Glucose (74-99) mg/dL POC Glucose (mg/dL) 142 H (75-99) mg/dL Calcium (8.4-10.2) mg/dL AST (17-59) U/L ALT (4-49) U/L Alkaline Phosphatase (38-126) U/L Lactate Dehydrogenase (313-618) U/L Creatine Kinase (55-170) U/L C-Reactive Protein (<1.0) mg/dL Total Protein (6.3-8.2) g/dL Albumin (3.5-5.0) g/dL 06/20/20 06/20/20 06/20/20 Range/Units 03:45 03:45 03:45 WBC 29.6 H (3.8-10.6) k/uL Plt Count 124 L (150-450) k/uL D-Dimer >35.20 H (<0.60) mg/L FEU ABG pH (7.35-7.45) ABG pCO2 (35-45) mmHg ABG pO2 (83-108) mmHg ABG HCO3 (21-25) mmol/L ABG Total CO2 (19-24) mmol/L ABG O2 Saturation (94-97) % Sodium 132 L (137-145) mmol/L Potassium 5.4 H (3.5-5.1) mmol/L Chloride 95 L (98-107) mmol/L Carbon Dioxide 31 H (22-30) mmol/L BUN 28 H (9-20) mg/dL Glucose 162 H (74-99) mg/dL POC Glucose (mg/dL) (75-99) mg/dL Calcium 8.3 L (8.4-10.2) mg/dL AST 131 H (17-59) U/L ALT 92 H (4-49) U/L Alkaline Phosphatase 310 H (38-126) U/L Lactate Dehydrogenase 9901 H (313-618) U/L Creatine Kinase 501 H (55-170) U/L C-Reactive Protein 3.7 H (<1.0) mg/dL Total Protein 6.0 L (6.3-8.2) g/dL Albumin 3.3 L (3.5-5.0) g/dL 06/20/20 06/20/20 06/20/20 Range/Units 04:23 07:31 11:34 WBC (3.8-10.6) k/uL Plt Count (150-450) k/uL D-Dimer (<0.60) mg/L FEU ABG pH 7.08 L* 7.18 L* (7.35-7.45) ABG pCO2 101 H* 87 H* (35-45) mmHg ABG pO2 164 H 137 H (83-108) mmHg ABG HCO3 30 H 33 H (21-25) mmol/L ABG Total CO2 33 H 35 H (19-24) mmol/L ABG O2 Saturation 97.9 H 97.8 H (94-97) % Sodium (137-145) mmol/L Potassium (3.5-5.1) mmol/L Chloride (98-107) mmol/L Carbon Dioxide (22-30) mmol/L BUN (9-20) mg/dL Glucose (74-99) mg/dL POC Glucose (mg/dL) 203 H (75-99) mg/dL Calcium (8.4-10.2) mg/dL AST (17-59) U/L ALT (4-49) U/L Alkaline Phosphatase (38-126) U/L Lactate Dehydrogenase (313-618) U/L Creatine Kinase (55-170) U/L C-Reactive Protein (<1.0) mg/dL Total Protein (6.3-8.2) g/dL Albumin (3.5-5.0) g/dL
[2020-06-20] MEDS ORDERED: LIDOCAINE 1% INJ 10MG/ML (20 ML MDV) SQ ONE (14:37)
--- NOTE | 2020-06-20 15:45 | XR ---
EXAMINATION TYPE: XR chest 1V portable DATE OF EXAM: 06/20/2020 COMPARISON: Chest x-ray same dated earlier time HISTORY: PICC line placement TECHNIQUE: Single frontal view of the chest is obtained. FINDINGS: Interval placement of a wire along the PICC line. Distal tip of the PICC line is overlying superior vena cava. No other significant interval change. IMPRESSION: No evident complication status post PICC line placement.
--- NOTE | 2020-06-20 15:49 | XR ---
EXAMINATION TYPE: XR chest 1V portable DATE OF EXAM: 06/20/2020 Comparison: Earlier today Clinical History: 55-year-old male picc line Findings: Severe diffuse subcutaneous emphysema persists. There is a new right PICC line, the tip is near the m id SVC level. Groundglass densities persist. Heart normal size. Suspicion for small right apical pneu mothorax measuring 8 mm versus 7 mm, previously. Unable to exclude a small left apical pneumothorax n ow estimated at 1.6 cm. Multiple overlying leads and catheters. ET tube tip at the level of the clavicular heads. NG tube courses below the diaphragm. Impression: 1. Right PICC tip at the mid SVC level. 2. Severe bilateral subcutaneous emphysema persists and limits assessment of the underlying lungs. 3. Suspicion of a small 8 mm right apical pneumothorax, relatively similar to prior. 4. Unable to exclude a small 1.6 cm left apical pneumothorax now. Again, the exam is severely limited . 5. Diffuse groundglass infiltrates also persist.
[2020-06-20 15:59] LABS: Ferritin 2928.5 ng/mL (22.0-322.0)
[2020-06-20] MEDS: CEFEPIME 2 GM in SODIUM CHLORIDE 0.9% 100 ML IVPB SCH ×2 (16:33→23:21)
--- NOTE | 2020-06-20 17:22 | IR ---
EXAMINATION TYPE: IR cvc insert >=5 years DATE OF EXAM: 06/20/2020 COMPARISON: NONE HISTORY: Covid pneumonia, needs long-term intravenous access for therapy FINDINGS: Maximal barrier technique was utilized. Hand hygiene obtained with soap and water and alco hol-based hand rub. The skin overlying the right basilic vein was localized with ultrasound and noted to be compressible and patent by ultrasound. An ultrasound image was obtained and submitted on na ent's chart. Sterile technique utilized with the ultrasound machine. The skin overlying was prepped a nd draped and Lidocaine used for local anesthesia. A skin kristen was made with a scalpel. Access was gained to the vein under direct ultrasound guidance with a 21-gauge needle and a 0.018 inch wire was advanced. Access site was dilated with a peel-away sheath and the catheter tailored to length. Cath eter advanced centrally and a post procedure chest x-ray verified placement with tip at the superior vena cava. Catheter was fixed to the skin and a sterile dressing placed. Hemostasis achieved and th e catheter was aspirated and flushed with sterile saline. The patient remained in stable condition. IMPRESSION: STATUS POST ULTRASOUND GUIDED PICC LINE PLACEMENT, READY FOR USE. THIS PROCEDURE WAS PER FORMED BY THE UNDERSIGNED.
[2020-06-20 17:43] LABS: Glucose,Whole Blood 212 mg/dL (75-99)
[2020-06-20] MEDS ORDERED: DEXTROSE 50% SYRINGE 50 ML IVP STA (17:46)
[2020-06-20] MEDS ORDERED: SODIUM POLYSTYRENE SULFONATE 15 GM/60 ML BOTTLE PO STA (17:48)
[2020-06-20] MEDS ORDERED: INSULIN REGULAR 100 UNIT/ML VIAL IV ONE (18:00)
[2020-06-20] MEDS: DEXTROSE 5% IN WATER 1,000 ML with SODIUM BICARB (1 MEQ/ML) 150 ML IV SCH (18:40)
--- NOTE | 2020-06-20 22:24 | XR ---
EXAMINATION TYPE: XR chest 1V portable DATE OF EXAM: 06/20/2020 CLINICAL HISTORY: chest tube placement. TECHNIQUE: Portable frontal view of the chest. COMPARISON: 06/20/2020 at 2:50 PM chest radiograph FINDINGS: There are bilateral chest tubes with distal tips directed at the lung apices. Right PICC, endotracheal tube, and enteric tube redemonstrated. There is extensive subcutaneous emphysema which o bscures the majority of the lung driver. Suspect persistent left apical pneumothorax. Cardiac silhoue tte normal in size. Diffuse airspace opacities bilaterally. IMPRESSION: 1. Severe bilateral subcutaneous emphysema limits visualization of the bilateral lungs. Suspect persi stent left apical pneumothorax. Similar appearance of the bilateral lungs. 2. Bilateral chest tubes with distal tips directed over the lung apices.
--- NOTE | 2020-06-20 23:14 | PCN ---
PROCEDURE NOTE OPERATIVE REPORT: Right-sided chest tube placement, right-sided chest tube thoracostomy. PREOPERATIVE DIAGNOSES: Right-sided pneumothorax, apical with subcutaneous emphysema, patient is on mechanical ventilation and high PEEP. POSTOPERATIVE DIAGNOSES: Right-sided pneumothorax, apical with subcutaneous emphysema, patient is on mechanical ventilation and high PEEP. ANESTHESIA: Used 10 mL of 1% lidocaine. PROCEDURE DETAILS: The patient was placed in a supine position, the area at the level of the anterior axillary line and 6th intercostal space was prepared in a sterile fashion and drapes were applied. Then, a 1.0 cm incision was made at the same level, and the fascia was dissected with a finger as well as the Aniyah forceps until the pleural space was entered. A 28 argyle chest tube was placed with the trocar pointing apically, and the trocar was removed. The chest tube was secured with 2.0 Ethibond sutures, and sterile dressing was applied. Chest x-ray postoperatively showed adequate placement of the tube and no evidence of any immediate complications. MMODL / IJN: [id number] /
--- NOTE | 2020-06-20 23:14 | PCN ---
PROCEDURE NOTE PROCEDURE PERFORMED: Placement of the left-sided chest tube, left-sided tube thoracostomy. PREOPERATIVE DIAGNOSES: Left-sided pneumothorax and pneumomediastinum with subcutaneous emphysema. POSTOP DIAGNOSES: Left-sided pneumothorax and pneumomediastinum with subcutaneous emphysema. ANESTHESIA: Used 10 mL of 1% lidocaine. The patient was already on mechanical ventilation, Nimbex and sentinel. PROCEDURE DETAILS: The patient was placed in the supine position, and the area at the level of anterior axillary line and 6th intercostal space was prepared in a sterile fashion. Drapes were applied. The area was locally anesthetized with lidocaine using 10 mL of 1% lidocaine. Then, a 1.0 cm incision was made at that level. The fascia was dissected with a finger and with a Aniyah forceps until the pleural space was entered. A 28 argyle chest tube was placed pointing apically and posteriorly. Then the trocar was removed. The chest tube was secured with 2.0 Ethibond sutures and sterile dressing applied. Chest x-ray postoperatively showed adequate placement of the tube and no complications. MMODL / IJN: [id number] /
[2020-06-21 00:46] LABS: Glucose,Whole Blood 166 mg/dL (75-99)
[2020-06-21] MEDS: INSULIN ASPART (NovoLOG) 100 UNIT/ML VIAL SQ SCH ×5 (00:47→23:51)
[2020-06-21] MEDS: ACETAMINOPHEN TAB 325 MG TAB PO PRN ×2 (01:12→18:01)
[2020-06-21] MEDS: NOREPINEPHRINE 4 MG in SODIUM CHLORIDE 0.9% 250 ML IV SCH ×2 (02:42→10:20)
[2020-06-21] MEDS: fentaNYL (PF). 1,000 MCG in SODIUM CHLORIDE 0.9% 80 ML IV SCH ×4 (02:42→23:48)
[2020-06-21] MEDS: ARTIFICIAL TEARS-HYPROMELLOSE DROPS 15 ML BTL BOTH EYES SCH ×6 (04:45→23:36)
[2020-06-21 05:07] LABS: ABG Base Excess 13.1 mmol/L; ABG HCO3 39 mmol/L (21-25); ABG Oxygen Saturation 95.3 % (94-97); ABG PH 7.31 (7.35-7.45); ABG PO2 77 mmHg (83-108); ABG TCO2 42 mmol/L (19-24); Allen Test Performed? Yes
[2020-06-21 05:10] LABS: ABG PCO2 78 mmHg (35-45)
[2020-06-21 05:15] LABS: HCT 44.2 % (39.0-53.0); HGB 14.6 gm/dL (13.0-17.5); MCH 30.5 pg (25.0-35.0); MCV 92.5 fL (80.0-100.0); Mean Platelet Volume 8.6; RBC 4.78 m/uL (4.30-5.90); RDW 13.8 % (11.5-15.5); WBC 15.9 k/uL (3.8-10.6)
[2020-06-21 05:23] LABS: ALT 61 U/L (4-49)
[2020-06-21 05:25] LABS: AST 59 U/L (17-59); African American GFR (CKD) >90 (>60 ml/min/1.73 sqM); Albumin 2.7 g/dL (3.5-5.0); Alkaline Phosphatase 190 U/L (38-126); Blood Urea Nitrogen 26 mg/dL (9-20); C Reactive Protein 4.1 mg/dL (<1.0); Calcium 7.3 mg/dL (8.4-10.2); Chloride 100 mmol/L (98-107); Creatine Kinase 902 U/L (55-170); Glucose 159 mg/dL (74-99); Non-African American GFR(CKD) >90 (>60 ml/min/1.73 sqM); Potassium 5.1 mmol/L (3.5-5.1); Sodium 137 mmol/L (137-145); Total Bilirubin 0.7 mg/dL (0.2-1.3); Total Protein 4.9 g/dL (6.3-8.2)
[2020-06-21 05:29] LABS: Anion Gap -2 mmol/L; Carbon Dioxide 39 mmol/L (22-30)
[2020-06-21 06:44] LABS: LDH 3891 U/L (313-618)
[2020-06-21] MEDS: CISATRACURIUM 200 MG in SODIUM CHLORIDE 0.9% 180 ML IV SCH (07:03)
[2020-06-21 07:10] LABS: Platelet Count 96 k/uL (150-450)
--- NOTE | 2020-06-21 07:27 | XR ---
EXAMINATION TYPE: XR chest 1V portable DATE OF EXAM: 06/21/2020 Comparison: 06/20/2020 Clinical History: 55-year-old male Tube placement Findings: Severe bilateral subcutaneous emphysema persists. ET tube tip at the level of the medial clavicular h óscar. NG tube satisfactory. Right PICC tip mid SVC level. Heart borderline enlarged. Lucencies on eit her side of the heart suggests pneumomediastinum now with a more typical appearance, suspect this to have decreased as compared to prior exam. Bilateral chest tubes are now present. Trace right apical p neumothorax measures 6 mm versus 2.0 cm, previously. The previous left apical pneumothorax is no long er visualized. Diffuse groundglass changes persist. Impression: 1. Persistent severe bilateral subcutaneous emphysema limiting the assessment. Underlying groundglass changes persist. 2. Bilateral chest tubes. Right apical pneumothorax smaller now trace in 6 mm versus 2.0 cm, previous ly. Left apical pneumothorax no longer seen. 3. Better demonstrated pneumomediastinum though suspected to have decreased compared to prior exam.
[2020-06-21] MEDS: CEFEPIME 2 GM in SODIUM CHLORIDE 0.9% 100 ML IVPB SCH ×3 (08:59→23:36)
[2020-06-21] MEDS: CHLORHEXIDINE GLUCONATE 15 ML CUP MUCOUS MEM SCH ×2 (08:59→20:01)
[2020-06-21] MEDS: CHOLECALCIFEROL 25 MCG (1000 IU) TABLET PO SCH (08:59)
[2020-06-21] MEDS: ASCORBIC ACID 500 MG TAB PO SCH (09:00)
[2020-06-21] MEDS: PANTOPRAZOLE 40 MG/10 ML VIAL IVP SCH (09:00)
[2020-06-21] MEDS: ZINC SULFATE 220 MG CAP PO SCH (09:00)
[2020-06-21] MEDS: DEXAMETHASONE SOD PHOSPHATE 10 MG/ML 1 ML VIAL IV SCH (09:00)
[2020-06-21] MEDS: ENOXAPARIN 40 MG/0.4 ML SYRINGE SQ SCH ×2 (09:02→20:01)
[2020-06-21] MEDS: DEXTROSE 5% IN WATER 1,000 ML with SODIUM BICARB (1 MEQ/ML) 150 ML IV SCH (09:11)
--- NOTE | 2020-06-21 12:07 | P.PN ---
Subjective Progress Note Date: 06/21/20 HISTORY OF PRESENT ILLNESS This is a 55-year-old male patient of Dr. Maxwell Alexander with significant past medical history. Patient states he started having symptoms on June 01 and was diagnosed with COVID-19 on June 08. Patient symptoms or body aches and fatigue as well as cough with white sputum production, increasing shortness of breath and measured pulse ox at home which worsened. He complains of headache chills and nausea. Patient presented to [facility] emergency center for evaluation. Patient was afebrile, heart rate 101, blood pressure 114/75, pulse ox 86% on room air. WBC 6.4, hemoglobin 16.2, platelet count 153. D-dimer 0.84. AST 106, ALT 44, alkaline phosphatase 57, LDH 2547. CRP 150. Sodium 129, potassium 4.6, chloride 97, CO2 23, BUN 12 and creatinine 0.84. Blood sugar 114. Chest x-ray reveals extensive pulmonary infiltrates related to pneumonia and ARDS. CTA of the chest reveals no pulmonary embolism. Patchy areas of nodular consolidations in the bilateral lower lobes with groundglass consolidation of the peripheral of the bilateral upper lobes consistent with multifocal infection compatible with Covid pneumonia. No pleural effusions or pneumothorax. Patient has been seen by pulmonary medicine is not a candidate f or Remdesivir. Convalescent plasma has been ordered as well as Tocilizumab 1 dose. Patient is currently pulse ox 95% on 15 L nonrebreather. 06/15: Repeat chest x-ray reveals worsening infiltrates. Patient is currently on nonrebreather and nasal cannula with pulse ox of 89%. Patient states that he is not sleeping because of coughing. He continues to have cough, shortness of breath. Noted to be tachypneic. Patient states he is eating okay. Melatonin, Flonase and Tessalon Perles added. Patient has been afebrile, heart rate 87, respiratory rate 32, blood pressure 112/70. Repeat blood work reveals WBC 11.4, hemoglobin 15.4, platelet count 208. D-dimer 0.95. Sodium 136 other electroly jagdeep and renal function normal. Blood sugar 118. AST 96, ALT 67, alkaline phosphatase 70. LDH 2884. C-reactive protein 59.4. 06/16: Patient's pulse ox is 90-92% on high flow nasal cannula at 13 L along with 100% nonrebreather. Patient was seen by Dr. Kern plan is to try and wean off 100% oxygen. Patient states that his breathing is stable today. He continues to have shortness of breath with minimal activity and cough. Patient started on mycelex noemi for thrush. He has been afebrile, heart rate 80, blood pressure 114/69. Repeat chest x-ray reveals improving bilateral lung infiltra jagdeep. Patient is continued on dexamethasone, Lovenox and vitamin supplements. 06/17: Yesterday afternoon, received call the patient had subcutaneous emphysema that was new and stat chest x-ray was ordered. This revealed interval development of subcutaneous emphysema within the bilateral neck. Some pneumo mediastinum may be present as the source. Pneumothorax is identified. This was reviewed by Dr. Kern at the time. Last evening at 2200, A-Team was called for puffiness of the neck and shoulder skin. Repeat chest x-ray revealed prominent interval increase in subcutaneous emphysema pattern. Patient was transferred to the intensive care unit. Patient has been seen in the intensive care unit today. He remains on 15 L high flow nasal cannula in addition to 100% nonrebreather facemask. D-dimer is 17.6, LDH 533. Patient remains on Decadron, Lovenox and supplements. Promethazine was added for cough suppression. Subcutaneous emphysema is stable. 06/18 patient evaluated bedside has worsening subcutaneous emphysema. Does appear anxious on examination. He is on Xanax to 0.25 mg twice a day with no improvement in patient's and slightly. We'll repeat chest x-ray does suggest tiny pneumothorax in addition to subcutaneous emphysema. Patient is currently maintaining oxygen saturation on interval 60 L with FiO2 of 90% with a nonrebreather 100%. Minimum exertion is causing desaturation. Patient appears to have worsening inflammation markers including worsening LDH and liver enzymes. Pulmonary care for management of the Covid. Continues to keep patient on dexamethasone, convalescent plasma. Patient is not a candidate for remdesivir. We will start patient on Lexapro 10 mg daily at bedtime to help with anxiety. IV fluids switch to D5NS as patient is not eating being on mask and is hungry. 06/19 patient evaluated bedside has worsening subcutaneous emphysema, facial swelling and pneumomediastinum. Patient is alert and keeping saturation 90-92% on BiPAP. He appears anxious and is breathing at 26 respiratory rate per minute. Blood pressure 1:30/74 heart rate of 113.chest x-rays consistent with bilateral subcutaneous emphysema and pneumomediastinum any apical pneumothorax dizzy and chest tube at this point. On evaluation patient's labs patient's leukocytosis and 19 sodium stable at 1:30, creatinine 0.67 and ferritin is 3144 elevated liver enzymes early at 7846 increased from prior low albumin. patient continues to have increased in size the despite initiation of Remeron will increase Remeron to 30 mg at bedtime Xanax increased to 0.5 twice a day f rom 0.25. Ativan can be given if patient is unable to tolerate oral medication. Plan to start patient on TPN tomorrow. Low sodium could be a results of D5W 06/20: Repeat blood work reveals WBC 29.6, hemoglobin 17, platelet count 124. D- dimer greater than 35. Sodium 132, potassium 5.4, chloride 95, CO2 31, BUN 28 creatinine 0.75. Blood sugar 162. AST 131, ALT 92, alkaline phosphatase 310. LDH 9901. CK 501. C-reactive protein 3.7. Patient became more hypoxic during the night with pulse ox down to the low 70s with mental status changes. Patient was intubated and placed on mechanical ventilation. Tidal volume 400, FiO2 of 75% and PEEP of 18. He is on propofol, Nimbex, levo fed was started and he is status post 2 L of IV fluid. He has on a fentanyl drip. Patient has extensive subcutaneous emphysema. Remeron and clotrimazole discontinued 06/21: Patient remains intubated and on mechanical ventilation. Tidal volume 400, FiO2 decreased from 85-80% this morning, PEEP 16. Patient had bilateral chest tubes placed for pneumothorax bilaterally. This was done last evening. Patient is currently on Nimbex, fentanyl, levo fed. He is on tube feedings at goal. Temperature max 100.2, heart rate 107, respiratory rate 33, blood pressure 118/62, pulse ox 90% with goal to keep above 85%. Repeat blood work reveals WBC 15.9, hemoglobin 14.6, platelet count 96. Sodium 137, potassium 5.1, chloride 100, CO2 39, BUN 26 and creatinine 0.69. Phosphorus 7.3. Magnesium 3.0. Total bilirubin 0.7, AST 59, ALT 61, alkaline phosphatase 190. D-dimer 14.6. LDH 3891. CK 902. C-reactive protein 4.1. Repeat chest x-ray reveals persistent severe bilateral subcutaneous emphysema limiting assessment. Underlying groundglass changes persist. Bilateral chest tubes. Right apical pneumothorax smaller 6 mm versus 2 cm previously. Left apical pneumothorax no longer seen. Better demonstrated pneumomediastinum though suspected to have decreased compared to prior exam. Patient does have less subcutaneous emphysema. REVIEW OF SYSTEMS Unable to obtain due to intubation. PHYSICAL EXAMINATION Physical exam deferred due to positive Covid 19 and intubation. Gen: This is a 55-year-old male. He is resting in ICU bed appears to be comfortable. No respiratory distress noted. HEENT: Head is atraumatic, normocephalic. NECK: Subcutaneous emphysema. ASSESSMENT AND PLAN 1. Acute hypoxic respiratory failure secondary to Covid 19 pneumonia requiring intubation and Rosado ventilation on 06/19. Patient has been seen by pulmonary medicine status post Convalescent plasma and Tocilizumab 1 dose. Continue dexamethasone 6 mg every 24 hours, Lovenox 40 mg subcu twice daily, vitamins. 2. Elevated inflammatory markers secondary to Covid 19. Continue to monitor. 3. Mild hyponatremia. Continue IV fluids. 4. Elevated d-dimer. Acute pulmonary embolism has been ruled out by CTA. 5. Lymphocytopenia secondary to Covid 19. 6. Thrush. Patient started on Mycelex troches. 7. Subcutaneous emphysema and pneumomediastinum, stable. Status post bilateral chest tube insertion with improvement. 8. Thrombocytopenia secondary to Covid. Continue to monitor. 9. GI prophylaxis. Protonix daily. 10. DVT prophylaxis. Lovenox. Prognosis is guarded. Impression and plan of care have been directed as dictated by the signing physician. Cathy Quintanilla nurse practitioner acting as scribe for signing physician. Objective - Vital Signs Vital signs: Vital Signs Temp 98.5 F 06/21/20 09:00 Pulse 107 H 06/21/20 09:00 Resp 33 H 06/21/20 09:00 BP 105/60 06/20/20 06:00 Pulse Ox 90 L 06/21/20 09:00 Intake & Output 06/20/20 06/21/20 06/21/20 18:59 06:59 18:59 Intake Total 2307.842 2038.654 779.548 Output Total 850 998 215 Balance 9826.052 2019.654 564.548 Weight 63.5 kg 63.5 kg Intake: IV 1239 958 334 Cefepime 2 gm In Sodium 100 100 Chloride 0.9% 100 ml @ 25 mls/hr IVPB Q8HR [facility] Rx# :[id number] Dextrose 5% in Water 1, 825 225 000 ml @ 75 mls/hr IV . [id number] [facility] with Sodium Bicarb (1 Meq/ml) 150 ml Rx#:[id number] Dextrose 5%-0.9% NaCl 1, 1200 000 ml @ 100 mls/hr IV . Q10H [facility] Rx#:[id number] pressure bag 39 33 9 Intake, IV Titration 1068.842 807.654 411.548 Amount Cefepime 2 gm In Sodium 100 Chloride 0.9% 100 ml @ 200 mls/hr IVPB ONCE ONE Rx#:[id number] Cisatracurium 200 mg In 102.806 Sodium Chloride 0.9% 180 ml @ 1 MCG/KG/MIN 3.81 mls/hr IV .Q24H [facility] Rx#: [id number] Dextrose 5% in Water 1, 75 000 ml @ 75 mls/hr IV . [id number] [facility] with Sodium Bicarb (1 Meq/ml) 150 ml Rx#:[id number] Norepinephrine 4 mg In 406.451 382.258 220.159 Sodium Chloride 0.9% 250 ml @ 0.05 MCG/KG/MIN 12. 097 mls/hr IV .Q21H [facility] Rx#:[id number] fentaNYL (PF). 1,000 mcg 137.372 157.268 In Sodium Chloride 0.9% 80 ml @ Per Protocol IV . Q0M [facility] Rx#:[id number] propofoL 1,000 mg In 350.019 268.128 88.583 Empty Bag 1 bag @ Titrate IV .Q0M [facility] Rx#: [id number] Tube Feeding 183 34 Other 90 Output: Chest Tube Drainage 78 Chest Tube Left 43 Chest Tube Right 35 Urine 850 920 215 Other: Voiding Method Indwelling Catheter Indwelling Catheter ABP, PAP, CO, CI - Last Documented Arterial Blood Pressure 118/62 - Labs CBC & Chem 7: 06/21/20 04:20 06/21/20 04:20 Labs: Abnormal Lab Results - Last 24 Hours (Table) 06/20/20 06/20/20 06/20/20 Range/Units 03:45 10:10 11:34 WBC (3.8-10.6) k/uL Plt Count (150-450) k/uL D-Dimer (<0.60) mg/L FEU ABG pH (7.35-7.45) ABG pCO2 (35-45) mmHg ABG pO2 (83-108) mmHg ABG HCO3 (21-25) mmol/L ABG Total CO2 (19-24) mmol/L Potassium (3.5-5.1) mmol/L Carbon Dioxide (22-30) mmol/L BUN (9-20) mg/dL Glucose (74-99) mg/dL POC Glucose (mg/dL) 203 H (75-99) mg/dL Calcium (8.4-10.2) mg/dL Magnesium (1.6-2.3) mg/dL Ferritin 2928.5 H (22.0-322.0) ng/mL ALT (4-49) U/L Alkaline Phosphatase (38-126) U/L Lactate Dehydrogenase (313-618) U/L Creatine Kinase (55-170) U/L C-Reactive Protein (<1.0) mg/dL Total Protein (6.3-8.2) g/dL Albumin (3.5-5.0) g/dL Procalcitonin 0.66 H (0.02-0.09) ng/mL 06/20/20 06/20/20 06/20/20 Range/Units 16:02 17:41 22:31 WBC (3.8-10.6) k/uL Plt Count (150-450) k/uL D-Dimer (<0.60) mg/L FEU ABG pH (7.35-7.45) ABG pCO2 (35-45) mmHg ABG pO2 (83-108) mmHg ABG HCO3 (21-25) mmol/L ABG Total CO2 (19-24) mmol/L Potassium 6.3 H* 5.5 H (3.5-5.1) mmol/L Carbon Dioxide (22-30) mmol/L BUN (9-20) mg/dL Glucose (74-99) mg/dL POC Glucose (mg/dL) 212 H (75-99) mg/dL Calcium (8.4-10.2) mg/dL Magnesium (1.6-2.3) mg/dL Ferritin (22.0-322.0) ng/mL ALT (4-49) U/L Alkaline Phosphatase (38-126) U/L Lactate Dehydrogenase (313-618) U/L Creatine Kinase (55-170) U/L C-Reactive Protein (<1.0) mg/dL Total Protein (6.3-8.2) g/dL Albumin (3.5-5.0) g/dL Procalcitonin (0.02-0.09) ng/mL 06/21/20 06/21/20 06/21/20 Range/Units 00:45 04:20 04:20 WBC 15.9 H (3.8-10.6) k/uL Plt Count 96 L (150-450) k/uL D-Dimer (<0.60) mg/L FEU ABG pH (7.35-7.45) ABG pCO2 (35-45) mmHg ABG pO2 (83-108) mmHg ABG HCO3 (21-25) mmol/L ABG Total CO2 (19-24) mmol/L Potassium (3.5-5.1) mmol/L Carbon Dioxide 39 H (22-30) mmol/L BUN 26 H (9-20) mg/dL Glucose 159 H (74-99) mg/dL POC Glucose (mg/dL) 166 H (75-99) mg/dL Calcium 7.3 L (8.4-10.2) mg/dL Magnesium 3.0 H (1.6-2.3) mg/dL Ferritin (22.0-322.0) ng/mL ALT 61 H (4-49) U/L Alkaline Phosphatase 190 H (38-126) U/L Lactate Dehydrogenase 3891 H (313-618) U/L Creatine Kinase 902 H (55-170) U/L C-Reactive Protein 4.1 H (<1.0) mg/dL Total Protein 4.9 L (6.3-8.2) g/dL Albumin 2.7 L (3.5-5.0) g/dL Procalcitonin (0.02-0.09) ng/mL 06/21/20 06/21/20 Range/Units 04:20 05:03 WBC (3.8-10.6) k/uL Plt Count (150-450) k/uL D-Dimer 14.68 H (<0.60) mg/L FEU ABG pH 7.31 L (7.35-7.45) ABG pCO2 78 H* (35-45) mmHg ABG pO2 77 L (83-108) mmHg ABG HCO3 39 H (21-25) mmol/L ABG Total CO2 42 H (19-24) mmol/L Potassium (3.5-5.1) mmol/L Carbon Dioxide (22-30) mmol/L BUN (9-20) mg/dL Glucose (74-99) mg/dL POC Glucose (mg/dL) (75-99) mg/dL Calcium (8.4-10.2) mg/dL Magnesium (1.6-2.3) mg/dL Ferritin (22.0-322.0) ng/mL ALT (4-49) U/L Alkaline Phosphatase (38-126) U/L Lactate Dehydrogenase (313-618) U/L Creatine Kinase (55-170) U/L C-Reactive Protein (<1.0) mg/dL Total Protein (6.3-8.2) g/dL Albumin (3.5-5.0) g/dL Procalcitonin (0.02-0.09) ng/mL Microbiology - Last 24 Hours (Table) 06/20/20 16:17 Gram Stain - Preliminary Sputum Sputum Culture - Preliminary
[2020-06-21 12:15] LABS: Glucose,Whole Blood 155 mg/dL (75-99)
--- NOTE | 2020-06-21 12:32 | P.PN ---
Subjective Progress Note Date: 06/21/20 Principal diagnosis: Acute hypoxic failure secondary to COVID-19 pneumonia 06/20/2020, the patient is being seen for a follow-up. The patient is a case of COVID-19 related pneumonia [place] by pneumomediastinum and bilateral subcutaneous emphysema. Overnight, he was kept on a BiPAP and the patient progressively became more hypoxic. He was on a BiPAP pressure of 12/6 with an FiO2 of 100%. I increased him up to 14/10 and later on up to 16/12 and despite that the patient continued to be hypoxic and in fact his pulse ox dropped down to the low 70s and he became more hypoxic and altered and agitated. During the course of his treatment, the patient's anxiety level is going up and he was becoming very much agitated. He was started on Precedex. Ultimately the decision was to intubate the patient put him on a mechanical ventilator. Currently is sedated with a combination of propofol and fentanyl and the patient is also paralyzed with Nimbex. He is on a mechanical ventilator. Patient is currently on propofol at a dose of 75 mcg/kg per minute. The patient is also paralyzed with Nimbex at a dose of 1 mg/kg per minute. He is on a mechanical ventilator currently on assist control mode with a tidal volume 400, rate of 34, FiO2 of 100% and PEEP of 20. Most recent blood gas showed a pH of 7.08 with a pO2 of 101 and pO2 164. The patient was given a total of 4 ampules of sodium bicarbonate regarding his underlying respiratory acidosis to correct his acidosis. The patient has become hypotensive. He received a total of 2 L of IV fluid and currently is on normal saline infusion. Norepinephrine is running at 0.1 mg/kg per minute for blood pressure support. On today's blood work, his white cell count is up to 29 with a hemoglobin of 17. BUN is 28 with a creatinine of 0.7. LFTs are slightly elevated. His chest x-ray post intubation shows no evidence of any pneumothorax. The patient has bilateral saphenous emphysema. ET tube is in a good location. On clinical examination, the patient has extensive subcutaneous emphysema bilaterally on involving his chest and his neck area. Otherwise, feels well sedated for now. Fentanyl was also added to support his sedation. He remains on Decadron at a dose of 6 mg IV every 24 hours. He is also on anticoagulation with Lovenox 40 mg subcu U 12 hours. Follow-up d-dimer today's at 35. Patient was seen by Dr. Kern early this morning, his condition deteriorated, patient required intubation and mechanical ventilation. His ABG after intubation remains very poor. Patient developed worsening subcutaneous emphysema, however his chest x-ray could not rule out a very tiny right apical pneumothorax versus artifact. Continues to have groundglass infiltrates bilaterally. Because of his worsening subcutaneous emphysema, thoracic surgery was consulted. ABG post intubation showed a pO2 of 137 pCO2 of 87 pH of 7.18. Patient has significantly elevated WBC count of 29.6. Hemoglobin is 17. Elect ra lites are normal except for potassium of 5.4. Renal profile is normal. His inflammatory markers are worse with LDH of almost 10,000. And C-reactive protein is 501. Obviously the patient is taking a downhill course, and he is clinically deteriorating. He is now on assist control rate of 34 tidal volume is 400 FiO2 is 75% PEEP of 18 peak airway pressure is 35 and plateau pressure is 32. Fluids-rodriguez he is on IV fluid at KVO, propofol at 75 fentanyl 2 Nimbex at one and norepinephrine at 0.2. Patient was reevaluated today on 06/21/2020, patient remains intubated and mechanically ventilated. Patient is on assist control rate of 34, tidal volume is 400 FiO2 is 100% PEEP of 16. ABG showed a pO2 of 77 pCO2 of 78 pH of 7.31. WBC count is 15.9 hemoglobin is 14.6, d-dimer is down to 14.68, it was 35 yesterday patient had bilateral chest tube placement yesterday, chest x-ray showed improvement, hardly any pneumothorax is noted, subcutaneous emphysema seems to be less. Electro lites are normal renal profile is normal LDH is 3891 C-reactive protein is 4.1 CPK is 902. WBC count is 15.9 hemoglobin is 14.6. Peak airway pressure is 35 static pressures 29. Patient remains on norepineph rine, fentanyl, propofol 75 Nimbex, and he is still receiving sodium bicarb drip. Based on his ABG, I will cut it down. I was able to cut down his FiO2 down to 80%, kept him on a PEEP of 16, and my plan is to eventually taper down his FiO2 and tapered down his speech. Patient remains on enteral feeding using Nepro . Chest x-ray continues to show bilateral patchy opacities, and subcutaneous emphysema. Improved chest x-ray compared to yesterday. Less subcutaneous emphysema, and less pulmonary opacities noted. Objective - Vital Signs Vital signs: Vital Signs Temp 98.5 F 06/21/20 09:00 Pulse 114 H 06/21/20 12:00 Resp 35 H 06/21/20 12:00 BP 96/58 06/21/20 12:00 Pulse Ox 92 L 06/21/20 12:00 Intake & Output 06/20/20 06/21/20 06/21/20 18:59 06:59 18:59 Intake Total 2307.842 2038.654 1248.635 Output Total 850 998 365 Balance 2955.405 9672.654 883.635 Weight 63.5 kg 63.5 kg Intake: IV 1239 958 568 Cefepime 2 gm In Sodium 100 100 Chloride 0.9% 100 ml @ 25 mls/hr IVPB Q8HR [facility] Rx# :[id number] Dextrose 5% in Water 1, 825 450 000 ml @ 75 mls/hr IV . [id number] [facility] with Sodium Bicarb (1 Meq/ml) 150 ml Rx#:[id number] Dextrose 5%-0.9% NaCl 1, 1200 000 ml @ 100 mls/hr IV . Q10H [facility] Rx#:[id number] pressure bag 39 33 18 Intake, IV Titration 1068.842 807.654 588.635 Amount Cefepime 2 gm In Sodium 100 Chloride 0.9% 100 ml @ 200 mls/hr IVPB ONCE ONE Rx#:[id number] Cisatracurium 200 mg In 102.806 Sodium Chloride 0.9% 180 ml @ 1 MCG/KG/MIN 3.81 mls/hr IV .Q24H [facility] Rx#: [id number] Dextrose 5% in Water 1, 75 000 ml @ 75 mls/hr IV . [id number] [facility] with Sodium Bicarb (1 Meq/ml) 150 ml Rx#:[id number] Norepinephrine 4 mg In 406.451 382.258 254.000 Sodium Chloride 0.9% 250 ml @ 0.05 MCG/KG/MIN 12. 097 mls/hr IV .Q21H [facility] Rx#:[id number] fentaNYL (PF). 1,000 mcg 137.372 157.268 98.002 In Sodium Chloride 0.9% 80 ml @ Per Protocol IV . Q0M [facility] Rx#:[id number] propofoL 1,000 mg In 350.019 268.128 133.827 Empty Bag 1 bag @ Titrate IV .Q0M [facility] Rx#: [id number] Tube Feeding 183 92 Other 90 Output: Chest Tube Drainage 78 Chest Tube Left 43 Chest Tube Right 35 Urine 850 920 365 Other: Voiding Method Indwelling Catheter Indwelling Catheter ABP, PAP, CO, CI - Last Documented Arterial Blood Pressure 96/54 - Exam Gen.: basically unchanged, patient is paralyzed and sedated. Orogastric tube and endotracheal tube are intact. HEENT: PERRLA, EOMI, nonicteric. Difficult periorbital subcutaneous emphysema and swelling noted. Chest: Crackles and rhonchi bilaterally. Significant subcutaneous emphysema noted anteriorly and crepitation noted. Bilateral chest tubes are noted to be intact. Cutaneous emphysema and the chest persists. Cardiac exam: Normal S1 and S2, no gallops. Abdomen: Soft nontender no megaly no rebound. Extremities: No clubbing edema or cyanosis. Skin: No rashes. Neurologic: patient is sedated and paralyzed. - Labs CBC & Chem 7: 06/21/20 04:20 06/21/20 04:20 Labs: Abnormal Lab Results - Last 24 Hours (Table) 06/20/20 06/20/20 06/20/20 Range/Units 03:45 10:10 16:02 WBC (3.8-10.6) k/uL Plt Count (150-450) k/uL D-Dimer (<0.60) mg/L FEU ABG pH (7.35-7.45) ABG pCO2 (35-45) mmHg ABG pO2 (83-108) mmHg ABG HCO3 (21-25) mmol/L ABG Total CO2 (19-24) mmol/L Potassium 6.3 H* (3.5-5.1) mmol/L Carbon Dioxide (22-30) mmol/L BUN (9-20) mg/dL Glucose (74-99) mg/dL POC Glucose (mg/dL) (75-99) mg/dL Calcium (8.4-10.2) mg/dL Magnesium (1.6-2.3) mg/dL Ferritin 2928.5 H (22.0-322.0) ng/mL ALT (4-49) U/L Alkaline Phosphatase (38-126) U/L Lactate Dehydrogenase (313-618) U/L Creatine Kinase (55-170) U/L C-Reactive Protein (<1.0) mg/dL Total Protein (6.3-8.2) g/dL Albumin (3.5-5.0) g/dL Procalcitonin 0.66 H (0.02-0.09) ng/mL 06/20/20 06/20/20 06/21/20 Range/Units 17:41 22:31 00:45 WBC (3.8-10.6) k/uL Plt Count (150-450) k/uL D-Dimer (<0.60) mg/L FEU ABG pH (7.35-7.45) ABG pCO2 (35-45) mmHg ABG pO2 (83-108) mmHg ABG HCO3 (21-25) mmol/L ABG Total CO2 (19-24) mmol/L Potassium 5.5 H (3.5-5.1) mmol/L Carbon Dioxide (22-30) mmol/L BUN (9-20) mg/dL Glucose (74-99) mg/dL POC Glucose (mg/dL) 212 H 166 H (75-99) mg/dL Calcium (8.4-10.2) mg/dL Magnesium (1.6-2.3) mg/dL Ferritin (22.0-322.0) ng/mL ALT (4-49) U/L Alkaline Phosphatase (38-126) U/L Lactate Dehydrogenase (313-618) U/L Creatine Kinase (55-170) U/L C-Reactive Protein (<1.0) mg/dL Total Protein (6.3-8.2) g/dL Albumin (3.5-5.0) g/dL Procalcitonin (0.02-0.09) ng/mL 06/21/20 06/21/20 06/21/20 Range/Units 04:20 04:20 04:20 WBC 15.9 H (3.8-10.6) k/uL Plt Count 96 L (150-450) k/uL D-Dimer 14.68 H (<0.60) mg/L FEU ABG pH (7.35-7.45) ABG pCO2 (35-45) mmHg ABG pO2 (83-108) mmHg ABG HCO3 (21-25) mmol/L ABG Total CO2 (19-24) mmol/L Potassium (3.5-5.1) mmol/L Carbon Dioxide 39 H (22-30) mmol/L BUN 26 H (9-20) mg/dL Glucose 159 H (74-99) mg/dL POC Glucose (mg/dL) (75-99) mg/dL Calcium 7.3 L (8.4-10.2) mg/dL Magnesium 3.0 H (1.6-2.3) mg/dL Ferritin (22.0-322.0) ng/mL ALT 61 H (4-49) U/L Alkaline Phosphatase 190 H (38-126) U/L Lactate Dehydrogenase 3891 H (313-618) U/L Creatine Kinase 902 H (55-170) U/L C-Reactive Protein 4.1 H (<1.0) mg/dL Total Protein 4.9 L (6.3-8.2) g/dL Albumin 2.7 L (3.5-5.0) g/dL Procalcitonin (0.02-0.09) ng/mL 06/21/20 06/21/20 Range/Units 05:03 12:14 WBC (3.8-10.6) k/uL Plt Count (150-450) k/uL D-Dimer (<0.60) mg/L FEU ABG pH 7.31 L (7.35-7.45) ABG pCO2 78 H* (35-45) mmHg ABG pO2 77 L (83-108) mmHg ABG HCO3 39 H (21-25) mmol/L ABG Total CO2 42 H (19-24) mmol/L Potassium (3.5-5.1) mmol/L Carbon Dioxide (22-30) mmol/L BUN (9-20) mg/dL Glucose (74-99) mg/dL POC Glucose (mg/dL) 155 H (75-99) mg/dL Calcium (8.4-10.2) mg/dL Magnesium (1.6-2.3) mg/dL Ferritin (22.0-322.0) ng/mL ALT (4-49) U/L Alkaline Phosphatase (38-126) U/L Lactate Dehydrogenase (313-618) U/L Creatine Kinase (55-170) U/L C-Reactive Protein (<1.0) mg/dL Total Protein (6.3-8.2) g/dL Albumin (3.5-5.0) g/dL Procalcitonin (0.02-0.09) ng/mL Microbiology - Last 24 Hours (Table) 06/20/20 16:17 Gram Stain - Preliminary Sputum Sputum Culture - Preliminary Assessment and Plan Assessment: Impression: Acute hypoxic respiratory failure secondary to COVID-19 pneumonia Acute barotrauma from mechanical ventilation and relatively high PEEP. Requiring chest tube placement on left and right side. Acute leukocytosis, suspect underlying secondary bacterial infection. Elevated inflammatory markers and seems to be worsening. Hypotension post intubation, continue fluids. Thrombocytopenia secondary to sepsis. Recommendation: Continue ventilatory support. Continue the vitamin cocktail and COVID-19 cocktail. Continue sedation and paralysis. Including fentanyl Nimbex and propofol. Continue both chest tubes to suction, no evidence of air leak noted in the chest tubes today. Patient received toci and convalescent plasma. Continue GI and DVT prophylaxis. Continue nutritional support. /Enteral feeding. Continue Lovenox. Continue antibiotics /cefepime empirically, sputum cultures are pending. Recheck blood cultures and sputum cultures. Condition remains critical. Critical care time is over 30 minutes Time with Patient: Greater than 30
--- NOTE | 2020-06-21 14:55 | P.PN ---
Subjective Progress Note Date: 06/21/20 Principal diagnosis: Acute COVID-19 pneumonia, pneumomediastinum, extensive subcutaneous emphysema, acute hypoxic respiratory failure, elevated inflammatory markers secondary to Co vid-19, leukocytosis, thrombocytopenia, hypotension post intubation, respiratory acidosis POD #1 placement of bilateral chest tubes by Dr. Dominique The patient remains laying in bed in the intensive care unit, remains intubated, sedated, and paralyzed. Bilateral chest tubes were placed yesterday by Dr. Dominique, no air leaks present in either chest tube, minimal drainage, subcutaneous emphysema has lessened but still present. Ventilator changes made by pulmonology. WBC down to 15.9, platelet 96, D-dimer 14.68, CRP 4.1, LDH 3891. Objective - Vital Signs Vital signs: Vital Signs Temp 98.5 F 06/21/20 09:00 Pulse 114 H 06/21/20 14:00 Resp 12 06/21/20 14:00 BP 96/58 06/21/20 14:00 Pulse Ox 88 L 06/21/20 14:00 Intake & Output 06/20/20 06/21/20 06/21/20 18:59 06:59 18:59 Intake Total 2307.842 2038.654 1466.635 Output Total 850 998 565 Balance 9345.842 4262.654 901.635 Weight 63.5 kg 63.5 kg 63.5 kg Intake: IV 1239 958 742 Cefepime 2 gm In Sodium 100 100 Chloride 0.9% 100 ml @ 25 mls/hr IVPB Q8HR [facility] Rx# :[id number] Dextrose 5% in Water 1, 825 600 000 ml @ 75 mls/hr IV . [id number] [facility] with Sodium Bicarb (1 Meq/ml) 150 ml Rx#:[id number] Dextrose 5%-0.9% NaCl 1, 1200 000 ml @ 100 mls/hr IV . Q10H [facility] Rx#:[id number] pressure bag 39 33 42 Intake, IV Titration 1068.842 807.654 588.635 Amount Cefepime 2 gm In Sodium 100 Chloride 0.9% 100 ml @ 200 mls/hr IVPB ONCE ONE Rx#:[id number] Cisatracurium 200 mg In 102.806 Sodium Chloride 0.9% 180 ml @ 1 MCG/KG/MIN 3.81 mls/hr IV .Q24H [facility] Rx#: [id number] Dextrose 5% in Water 1, 75 000 ml @ 75 mls/hr IV . [id number] [facility] with Sodium Bicarb (1 Meq/ml) 150 ml Rx#:[id number] Norepinephrine 4 mg In 406.451 382.258 254.000 Sodium Chloride 0.9% 250 ml @ 0.05 MCG/KG/MIN 12. 097 mls/hr IV .Q21H [facility] Rx#:[id number] fentaNYL (PF). 1,000 mcg 137.372 157.268 98.002 In Sodium Chloride 0.9% 80 ml @ Per Protocol IV . Q0M [facility] Rx#:[id number] propofoL 1,000 mg In 350.019 268.128 133.827 Empty Bag 1 bag @ Titrate IV .Q0M [facility] Rx#: [id number] Tube Feeding 183 136 Other 90 Output: Chest Tube Drainage 78 Chest Tube Left 43 Chest Tube Right 35 Urine 850 920 565 Other: Voiding Method Indwelling Catheter Indwelling Catheter ABP, PAP, CO, CI - Last Documented Arterial Blood Pressure 109/63 - Exam CONSTITUTIONAL: Currently sedated and paralyzed on mechanical ventilation EYES: Subcutaneous emphysema present over right eye, less than yesterday ENT: Moist mucous membranes without oral lesions present NECK: No masses, no bruits, trachea midline RESPIRATORY: Lungs sounds diminished to auscultation bilaterally. Currently on mechanical ventilation, assist control mode, FiO2 70%, PEEP 16, tidal volume 400, respiratory rate 34. 8.0 ET tube present, 25 at the lip. Subcutaneous emphysema present to the chest, arms, neck, face. CARDIOVASCULAR: S1, S2 present. Tachycardic but regular rate and rhythm, sinus tach on telemetry. Palpable peripheral pulses bilaterally. Trace generalized edema present. SCDs present. GASTROINTESTINAL: Abdomen soft, nontender, nondistended without masses or organomegaly noted. Hypoactive bowel sounds present 4 quadrants. OG tube present, tube feeding infusing at 17 ml/hr. GENITOURINARY: Indwelling catheter present draining clear, yellow urine. Urine output 50-100 mL per hour INTEGUMENTARY: Skin is warm and dry NEUROLOGIC: Unable to assess as patient is currently receiving IV paralytic INVASIVE LINES/TUBES: Right PICC line, left radial arterial line present. Right and left pleural chest tubes present, no air leaks present, minimal drainage. - Allied health notes Allied health notes reviewed: nursing - Labs CBC & Chem 7: 06/21/20 04:20 06/21/20 04:20 Labs: Abnormal Lab Results - Last 24 Hours (Table) 06/20/20 06/20/20 06/20/20 Range/Units 03:45 10:10 16:02 WBC (3.8-10.6) k/uL Plt Count (150-450) k/uL D-Dimer (<0.60) mg/L FEU ABG pH (7.35-7.45) ABG pCO2 (35-45) mmHg ABG pO2 (83-108) mmHg ABG HCO3 (21-25) mmol/L ABG Total CO2 (19-24) mmol/L Potassium 6.3 H* (3.5-5.1) mmol/L Carbon Dioxide (22-30) mmol/L BUN (9-20) mg/dL Glucose (74-99) mg/dL POC Glucose (mg/dL) (75-99) mg/dL Calcium (8.4-10.2) mg/dL Magnesium (1.6-2.3) mg/dL Ferritin 2928.5 H (22.0-322.0) ng/mL ALT (4-49) U/L Alkaline Phosphatase (38-126) U/L Lactate Dehydrogenase (313-618) U/L Creatine Kinase (55-170) U/L C-Reactive Protein (<1.0) mg/dL Total Protein (6.3-8.2) g/dL Albumin (3.5-5.0) g/dL Procalcitonin 0.66 H (0.02-0.09) ng/mL 06/20/20 06/20/20 06/21/20 Range/Units 17:41 22:31 00:45 WBC (3.8-10.6) k/uL Plt Count (150-450) k/uL D-Dimer (<0.60) mg/L FEU ABG pH (7.35-7.45) ABG pCO2 (35-45) mmHg ABG pO2 (83-108) mmHg ABG HCO3 (21-25) mmol/L ABG Total CO2 (19-24) mmol/L Potassium 5.5 H (3.5-5.1) mmol/L Carbon Dioxide (22-30) mmol/L BUN (9-20) mg/dL Glucose (74-99) mg/dL POC Glucose (mg/dL) 212 H 166 H (75-99) mg/dL Calcium (8.4-10.2) mg/dL Magnesium (1.6-2.3) mg/dL Ferritin (22.0-322.0) ng/mL ALT (4-49) U/L Alkaline Phosphatase (38-126) U/L Lactate Dehydrogenase (313-618) U/L Creatine Kinase (55-170) U/L C-Reactive Protein (<1.0) mg/dL Total Protein (6.3-8.2) g/dL Albumin (3.5-5.0) g/dL Procalcitonin (0.02-0.09) ng/mL 06/21/20 06/21/20 06/21/20 Range/Units 04:20 04:20 04:20 WBC 15.9 H (3.8-10.6) k/uL Plt Count 96 L (150-450) k/uL D-Dimer 14.68 H (<0.60) mg/L FEU ABG pH (7.35-7.45) ABG pCO2 (35-45) mmHg ABG pO2 (83-108) mmHg ABG HCO3 (21-25) mmol/L ABG Total CO2 (19-24) mmol/L Potassium (3.5-5.1) mmol/L Carbon Dioxide 39 H (22-30) mmol/L BUN 26 H (9-20) mg/dL Glucose 159 H (74-99) mg/dL POC Glucose (mg/dL) (75-99) mg/dL Calcium 7.3 L (8.4-10.2) mg/dL Magnesium 3.0 H (1.6-2.3) mg/dL Ferritin (22.0-322.0) ng/mL ALT 61 H (4-49) U/L Alkaline Phosphatase 190 H (38-126) U/L Lactate Dehydrogenase 3891 H (313-618) U/L Creatine Kinase 902 H (55-170) U/L C-Reactive Protein 4.1 H (<1.0) mg/dL Total Protein 4.9 L (6.3-8.2) g/dL Albumin 2.7 L (3.5-5.0) g/dL Procalcitonin (0.02-0.09) ng/mL 06/21/20 06/21/20 Range/Units 05:03 12:14 WBC (3.8-10.6) k/uL Plt Count (150-450) k/uL D-Dimer (<0.60) mg/L FEU ABG pH 7.31 L (7.35-7.45) ABG pCO2 78 H* (35-45) mmHg ABG pO2 77 L (83-108) mmHg ABG HCO3 39 H (21-25) mmol/L ABG Total CO2 42 H (19-24) mmol/L Potassium (3.5-5.1) mmol/L Carbon Dioxide (22-30) mmol/L BUN (9-20) mg/dL Glucose (74-99) mg/dL POC Glucose (mg/dL) 155 H (75-99) mg/dL Calcium (8.4-10.2) mg/dL Magnesium (1.6-2.3) mg/dL Ferritin (22.0-322.0) ng/mL ALT (4-49) U/L Alkaline Phosphatase (38-126) U/L Lactate Dehydrogenase (313-618) U/L Creatine Kinase (55-170) U/L C-Reactive Protein (<1.0) mg/dL Total Protein (6.3-8.2) g/dL Albumin (3.5-5.0) g/dL Procalcitonin (0.02-0.09) ng/mL Microbiology - Last 24 Hours (Table) 06/20/20 16:17 Gram Stain - Preliminary Sputum Sputum Culture - Preliminary - Imaging and Cardiology Chest x-ray: report reviewed, image reviewed Assessment and Plan Assessment: 1. Acute COVID-19 pneumonia 2. Pneumomediastinum, subcutaneous emphysema, S/P placement of right and left pleural chest tubes by pulmonology 3. Acute hypoxic respiratory failure, currently on mechanical ventilation 4. Elevated inflammatory markers secondary to Covid 5. Leukocytosis, thrombocytopenia 6. Hypotension post intubation, currently off pressors 7. Respiratory acidosis Plan: 1. Continue both chest tubes to continuous wall suction 2. Mechanical ventilation, sedation, paralytic, covid managment per [employer] 3. No surgery is warranted at this time 4. GI/DVT prophylaxis 5. Will monitor daily CXR 6. Patient remains critically ill with poor prognosis Time with Patient: Greater than 30
[2020-06-21] MEDS ORDERED: CLEVIDIPINE BUTYRATE 25 MG/50 ML VIAL IV ONE (17:33)
[2020-06-21 18:20] LABS: ABG Base Excess 17.1 mmol/L; ABG Oxygen Saturation 58.9 % (94-97); ABG PH 7.31 (7.35-7.45); ABG TCO2 46 mmol/L (19-24)
[2020-06-21 18:21] LABS: ABG PCO2 87 mmHg (35-45); ABG PO2 31 mmHg (83-108)
[2020-06-21 18:22] LABS: ABG HCO3 43 mmol/L (21-25)
[2020-06-21 18:44] LABS: Glucose,Whole Blood 190 mg/dL (75-99)
--- NOTE | 2020-06-21 19:37 | XR ---
EXAMINATION TYPE: XR chest 1V portable DATE OF EXAM: 06/21/2020 CLINICAL HISTORY: sob . TECHNIQUE: Portable semiupright view of the chest COMPARISON: 06/22/2019 10 5:07 AM chest radiograph FINDINGS: Persistent severe bilateral diffuse subcutaneous emphysema. Endotracheal tube distal tip 5. 5 cm from the [place]. Enteric tube with nonvisualization of the distal tip. Right PICC at the distal superior vena cava. Persistent bilateral chest tubes. There is redemonstrated pneumomediastinum. The tiny right apical pneumothorax on 5:07 AM comparison is not distinctly seen on current exam. Diffuse groundglass opacities redemonstrated. IMPRESSION: 1. Redemonstrated pneumomediastinum and severe diffuse bilateral subcutaneous emphysema. Unchanged ai rspace opacities bilaterally. 2. Right apical pneumothorax seen on comparison of 5:07 AM is not definitively seen on current exam. 3. Persistent tubes and lines as above.
[2020-06-21 19:57] LABS: ABG Base Excess 16.8 mmol/L; ABG Oxygen Saturation 92.4 % (94-97); ABG PH 7.28 (7.35-7.45); ABG PO2 67 mmHg (83-108); ABG TCO2 46 mmol/L (19-24); Allen Test Performed? Yes
[2020-06-21 19:59] LABS: ABG HCO3 44 mmol/L (21-25); ABG PCO2 93 mmHg (35-45)
[2020-06-21] MEDS: CLEVIDIPINE BUTYRATE 25 MG in EMPTY BAG 1 BAG IV SCH (20:01)
[2020-06-21 20:45] LABS: Ferritin 1493.3 ng/mL (22.0-322.0)
[2020-06-21 23:44] LABS: Glucose,Whole Blood 177 mg/dL (75-99)
[2020-06-22 03:29] LABS: Basophils % (A) 0 %; Eosinophils # (A) 0.3 k/uL (0-0.7); Eosinophils % (A) 1 %; HCT 43.2 % (39.0-53.0); HGB 13.7 gm/dL (13.0-17.5); Lymphocytes # (A) 0.5 k/uL (1.0-4.8); Lymphocytes % (A) 3 %; MCH 29.8 pg (25.0-35.0); MCHC 31.8 g/dL (31.0-37.0); MCV 93.6 fL (80.0-100.0); Monocytes # (A) 0.6 k/uL (0-1.0); Monocytes % (A) 3 %; Neutrophils # (A) 18.9 k/uL (1.3-7.7); Neutrophils % (A) 93 %; Platelet Count 108 k/uL (150-450); RBC 4.61 m/uL (4.30-5.90); RDW 13.9 % (11.5-15.5); WBC 20.3 k/uL (3.8-10.6)
[2020-06-22 04:08] LABS: ALT 44 U/L (4-49); AST 54 U/L (17-59); African American GFR (CKD) >90 (>60 ml/min/1.73 sqM); Albumin 2.5 g/dL (3.5-5.0); Alkaline Phosphatase 187 U/L (38-126); Blood Urea Nitrogen 31 mg/dL (9-20); C Reactive Protein 4.1 mg/dL (<1.0); Calcium 7.6 mg/dL (8.4-10.2); Chloride 98 mmol/L (98-107); Creatine Kinase 365 U/L (55-170); Glucose 146 mg/dL (74-99); Non-African American GFR(CKD) >90 (>60 ml/min/1.73 sqM); Potassium 4.5 mmol/L (3.5-5.1); Sodium 139 mmol/L (137-145); Total Bilirubin 0.6 mg/dL (0.2-1.3); Total Protein 4.8 g/dL (6.3-8.2)
[2020-06-22 04:13] LABS: Anion Gap -1 mmol/L
[2020-06-22 04:16] LABS: LDH 3346 U/L (313-618)
[2020-06-22 04:17] LABS: Carbon Dioxide 42 mmol/L (22-30)
[2020-06-22 05:19] LABS: ABG Oxygen Saturation 97.1 % (94-97); ABG PH 7.33 (7.35-7.45); ABG PO2 95 mmHg (83-108); ABG TCO2 48 mmol/L (19-24); Allen Test Performed? Yes
[2020-06-22 05:23] LABS: ABG HCO3 45 mmol/L (21-25); ABG PCO2 86 mmHg (35-45)
[2020-06-22] MEDS: DEXTROSE 5% IN WATER 1,000 ML with SODIUM BICARB (1 MEQ/ML) 150 ML IV SCH ×3 (05:47→23:39)
[2020-06-22] MEDS: ARTIFICIAL TEARS-HYPROMELLOSE DROPS 15 ML BTL BOTH EYES SCH ×6 (05:50→23:56)
[2020-06-22 05:59] LABS: Glucose,Whole Blood 132 mg/dL (75-99)
[2020-06-22] MEDS: INSULIN ASPART (NovoLOG) 100 UNIT/ML VIAL SQ SCH ×3 (06:03→18:11)
[2020-06-22] MEDS: fentaNYL (PF). 1,000 MCG in SODIUM CHLORIDE 0.9% 80 ML IV SCH ×3 (06:49→19:58)
--- NOTE | 2020-06-22 07:07 | XR ---
EXAMINATION TYPE: XR chest 1V portable DATE OF EXAM: 06/22/2020 COMPARISON: 06/21/2020 HISTORY: SOB, Follow Up FINDINGS: Indwelling tubes and catheters are unchanged. Bilateral chest tubes are in place. No evidence for sizable pneumothorax although pneumothoraces can be obscured by extensive subcutaneous emphysema noted bilaterally. Diffuse airspace infiltrates persist unchanged. Stable appearance of the cardio-mediastinal structures at this time. Pleural effusion unchanged. IMPRESSION: 1. Stable portable chest. Clinical correlation and follow up until resolution is recommended.
--- NOTE | 2020-06-22 07:59 | P.PN ---
Subjective Progress Note Date: 06/22/20 Principal diagnosis: Acute COVID-19 pneumonia, pneumomediastinum, extensive subcutaneous emphysema, acute hypoxic respiratory failure, elevated inflammatory markers secondary to Co vid-19, leukocytosis, thrombocytopenia, hypotension post intubation, respiratory acidosis POD #2 placement of bilateral chest tubes by Dr. Dominique The patient remains laying in bed in the intensive care unit, remains intubated, sedated, and paralyzed. Bilateral chest tubes were in place, no air leaks present in either chest tube, minimal drainage, subcutaneous emphysema remains present. Last night the patient became more hypoxic, tachycardic and hypertensive, ABG drawn, ventilator changes made by pulmonology, currently on 100% FiO2 and 20 PEEP. WBC 20.3, platelet 108, D-dimer 10.74, CRP 4.1, LDH 3346. Objective - Vital Signs Vital signs: Vital Signs Temp 98 F 06/22/20 04:00 Pulse 105 H 06/22/20 07:00 Resp 34 H 06/22/20 07:00 BP 199/104 06/21/20 17:30 Pulse Ox 94 L 06/22/20 07:00 Intake & Output 06/21/20 06/22/20 06/22/20 18:59 06:59 18:59 Intake Total 2278.756 1685.285 Output Total 840 870 Balance 1438.756 815.285 Weight 63.5 kg 71.5 kg Intake: IV 1166 1017 Cefepime 2 gm In Sodium 200 Chloride 0.9% 100 ml @ 25 mls/hr IVPB Q8HR [facility] Rx# :[id number] Dextrose 5% in Water 1, 900 975 000 ml @ 75 mls/hr IV . [id number] [facility] with Sodium Bicarb (1 Meq/ml) 150 ml Rx#:[id number] pressure bag 66 42 Intake, IV Titration 942.756 374.285 Amount Cisatracurium 200 mg In 144.145 0 Sodium Chloride 0.9% 180 ml @ 1 MCG/KG/MIN 3.81 mls/hr IV .Q24H [facility] Rx#: [id number] Clevidipine Butyrate 25 1.3 mg In Empty Bag 1 bag @ 1 MG/HR 2 mls/hr IV .Q24H [facility] Rx#:[id number] Norepinephrine 4 mg In 280.210 Sodium Chloride 0.9% 250 ml @ 0.05 MCG/KG/MIN 12. 097 mls/hr IV .Q21H [facility] Rx#:[id number] fentaNYL (PF). 1,000 mcg 184.574 172.509 In Sodium Chloride 0.9% 80 ml @ Per Protocol IV . Q0M [facility] Rx#:[id number] propofoL 1,000 mg In 333.827 200.476 Empty Bag 1 bag @ Titrate IV .Q0M [facility] Rx#: [id number] Tube Feeding 170 204 Other 90 Output: Chest Tube Drainage 75 100 Chest Tube Left 55 70 Chest Tube Right 20 30 Urine 765 770 Other: Voiding Method Indwelling Catheter Indwelling Catheter ABP, PAP, CO, CI - Last Documented Arterial Blood Pressure 102/60 - Exam CONSTITUTIONAL: Currently sedated and paralyzed on mechanical ventilation EYES: Subcutaneous emphysema present over right eye ENT: Moist mucous membranes without oral lesions present NECK: No masses, no bruits, trachea midline RESPIRATORY: Lungs sounds diminished to auscultation bilaterally. Currently on mechanical ventilation, assist control mode, FiO2 100%, PEEP 20, tidal volume 400, respiratory rate 34. ABGs this am on those settings 7.33/86/95/45/97%/BE 19. 8.0 ET tube present, 25 at the lip. Subcutaneous emphysema present to the chest, arms, neck, face. CARDIOVASCULAR: S1, S2 present. Tachycardic but regular rate and rhythm, sinus tach on telemetry with heart rate in the low 100s. Palpable peripheral pulses bilaterally. SCDs present. GASTROINTESTINAL: Abdomen soft, nontender, nondistended without masses or organomegaly noted. Active bowel sounds present 4 quadrants. OG tube present, tube feeding infusing at 17 ml/hr. GENITOURINARY: Indwelling catheter present draining clear, yellow urine. Urine output 30-75 mL per hour INTEGUMENTARY: Skin is warm and dry NEUROLOGIC: Unable to assess as patient is currently receiving IV paralytic INVASIVE LINES/TUBES: Right PICC line, left radial arterial line present. Right and left pleural chest tubes present, no air leaks present, minimal drainage. - Allied health notes Allied health notes reviewed: nursing - Labs CBC & Chem 7: 06/22/20 03:20 06/22/20 03:20 Labs: Abnormal Lab Results - Last 24 Hours (Table) 06/21/20 06/21/2006/21/21 Range/Units 04:20 12:14 18:19 WBC (3.8-10.6) k/uL Plt Count (150-450) k/uL Neutrophils # (1.3-7.7) k/uL Lymphocytes # (1.0-4.8) k/uL D-Dimer (<0.60) mg/L FEU ABG pH 7.31 L (7.35-7.45) ABG pCO2 87 H* (35-45) mmHg ABG pO2 31 L* (83-108) mmHg ABG HCO3 43 H* (21-25) mmol/L ABG Total CO2 46 H (19-24) mmol/L ABG O2 Saturation 58.9 L (94-97) % Carbon Dioxide (22-30) mmol/L BUN (9-20) mg/dL Creatinine (0.66-1.25) mg/dL Glucose (74-99) mg/dL POC Glucose (mg/dL) 155 H (75-99) mg/dL Calcium (8.4-10.2) mg/dL Ferritin 1493.3 H (22.0-322.0) ng/mL Alkaline Phosphatase (38-126) U/L Lactate Dehydrogenase (313-618) U/L Creatine Kinase (55-170) U/L C-Reactive Protein (<1.0) mg/dL Total Protein (6.3-8.2) g/dL Albumin (3.5-5.0) g/dL 06/21/20 06/21/20 06/21/20 Range/Units 18:42 19:50 23:42 WBC (3.8-10.6) k/uL Plt Count (150-450) k/uL Neutrophils # (1.3-7.7) k/uL Lymphocytes # (1.0-4.8) k/uL D-Dimer (<0.60) mg/L FEU ABG pH 7.28 L (7.35-7.45) ABG pCO2 93 H* (35-45) mmHg ABG pO2 67 L (83-108) mmHg ABG HCO3 44 H* (21-25) mmol/L ABG Total CO2 46 H (19-24) mmol/L ABG O2 Saturation 92.4 L (94-97) % Carbon Dioxide (22-30) mmol/L BUN (9-20) mg/dL Creatinine (0.66-1.25) mg/dL Glucose (74-99) mg/dL POC Glucose (mg/dL) 190 H 177 H (75-99) mg/dL Calcium (8.4-10.2) mg/dL Ferritin (22.0-322.0) ng/mL Alkaline Phosphatase (38-126) U/L Lactate Dehydrogenase (313-618) U/L Creatine Kinase (55-170) U/L C-Reactive Protein (<1.0) mg/dL Total Protein (6.3-8.2) g/dL Albumin (3.5-5.0) g/dL 06/22/20 06/22/20 06/22/20 Range/Units 03:20 03:20 03:20 WBC 20.3 H (3.8-10.6) k/uL Plt Count 108 L (150-450) k/uL Neutrophils # 18.9 H (1.3-7.7) k/uL Lymphocytes # 0.5 L (1.0-4.8) k/uL D-Dimer 10.74 H (<0.60) mg/L FEU ABG pH (7.35-7.45) ABG pCO2 (35-45) mmHg ABG pO2 (83-108) mmHg ABG HCO3 (21-25) mmol/L ABG Total CO2 (19-24) mmol/L ABG O2 Saturation (94-97) % Carbon Dioxide 42 H* (22-30) mmol/L BUN 31 H (9-20) mg/dL Creatinine 0.63 L (0.66-1.25) mg/dL Glucose 146 H (74-99) mg/dL POC Glucose (mg/dL) (75-99) mg/dL Calcium 7.6 L (8.4-10.2) mg/dL Ferritin (22.0-322.0) ng/mL Alkaline Phosphatase 187 H (38-126) U/L Lactate Dehydrogenase 3346 H (313-618) U/L Creatine Kinase 365 H (55-170) U/L C-Reactive Protein 4.1 H (<1.0) mg/dL Total Protein 4.8 L (6.3-8.2) g/dL Albumin 2.5 L (3.5-5.0) g/dL 06/22/20 06/22/20 Range/Units 05:14 05:58 WBC (3.8-10.6) k/uL Plt Count (150-450) k/uL Neutrophils # (1.3-7.7) k/uL Lymphocytes # (1.0-4.8) k/uL D-Dimer (<0.60) mg/L FEU ABG pH 7.33 L (7.35-7.45) ABG pCO2 86 H* (35-45) mmHg ABG pO2 (83-108) mmHg ABG HCO3 45 H* (21-25) mmol/L ABG Total CO2 48 H (19-24) mmol/L ABG O2 Saturation 97.1 H (94-97) % Carbon Dioxide (22-30) mmol/L BUN (9-20) mg/dL Creatinine (0.66-1.25) mg/dL Glucose (74-99) mg/dL POC Glucose (mg/dL) 132 H (75-99) mg/dL Calcium (8.4-10.2) mg/dL Ferritin (22.0-322.0) ng/mL Alkaline Phosphatase (38-126) U/L Lactate Dehydrogenase (313-618) U/L Creatine Kinase (55-170) U/L C-Reactive Protein (<1.0) mg/dL Total Protein (6.3-8.2) g/dL Albumin (3.5-5.0) g/dL Microbiology - Last 24 Hours (Table) 06/21/20 21:50 Sputum Culture - Preliminary Sputum - Imaging and Cardiology Chest x-ray: report reviewed, image reviewed Assessment and Plan Assessment: 1. Acute COVID-19 pneumonia 2. Pneumomediastinum, subcutaneous emphysema, S/P placement of right and left pleural chest tubes by pulmonology 3. Acute hypoxic respiratory failure, currently on mechanical ventilation 4. Elevated inflammatory markers secondary to Covid 5. Leukocytosis, thrombocytopenia 6. Hypotension post intubation, currently off pressors 7. Respiratory acidosis Plan: 1. Continue both chest tubes to continuous wall suction 2. Mechanical ventilation, sedation, paralytic, covid managment per assistant media planner 3. No surgery is warranted at this time 4. GI/DVT prophylaxis 5. Will monitor daily CXR 6. Patient remains critically ill with poor prognosis Time with Patient: Less than 30
[2020-06-22] MEDS: CISATRACURIUM 200 MG in SODIUM CHLORIDE 0.9% 180 ML IV SCH (08:34)
[2020-06-22] MEDS: PANTOPRAZOLE 40 MG/10 ML VIAL IVP SCH (08:42)
[2020-06-22] MEDS: CEFEPIME 2 GM in SODIUM CHLORIDE 0.9% 100 ML IVPB SCH ×3 (08:42→23:39)
[2020-06-22] MEDS: ENOXAPARIN 40 MG/0.4 ML SYRINGE SQ SCH ×2 (08:43→19:58)
[2020-06-22] MEDS: CHLORHEXIDINE GLUCONATE 15 ML CUP MUCOUS MEM SCH ×2 (08:43→19:58)
[2020-06-22] MEDS: DEXAMETHASONE SOD PHOSPHATE 10 MG/ML 1 ML VIAL IV SCH (08:43)
[2020-06-22] MEDS: ASCORBIC ACID 500 MG TAB PO SCH (08:43)
[2020-06-22] MEDS: CHOLECALCIFEROL 25 MCG (1000 IU) TABLET PO SCH (08:43)
[2020-06-22] MEDS: ZINC SULFATE 220 MG CAP PO SCH (08:43)
--- NOTE | 2020-06-22 12:07 | P.PN ---
Subjective Progress Note Date: 06/22/20 Principal diagnosis: Acute hypoxic failure secondary to COVID-19 pneumonia 06/20/2020, the patient is being seen for a follow-up. The patient is a case of COVID-19 related pneumonia [place] by pneumomediastinum and bilateral subcutaneous emphysema. Overnight, he was kept on a BiPAP and the patient progressively became more hypoxic. He was on a BiPAP pressure of 12/6 with an FiO2 of 100%. I increased him up to 14/10 and later on up to 16/12 and despite that the patient continued to be hypoxic and in fact his pulse ox dropped down to the low 70s and he became more hypoxic and altered and agitated. During the course of his treatment, the patient's anxiety level is going up and he was becoming very much agitated. He was started on Precedex. Ultimately the decision was to intubate the patient put him on a mechanical ventilator. Currently is sedated with a combination of propofol and fentanyl and the patient is also paralyzed with Nimbex. He is on a mechanical ventilator. Patient is currently on propofol at a dose of 75 mcg/kg per minute. The patient is also paralyzed with Nimbex at a dose of 1 mg/kg per minute. He is on a mechanical ventilator currently on assist control mode with a tidal volume 400, rate of 34, FiO2 of 100% and PEEP of 20. Most recent blood gas showed a pH of 7.08 with a pO2 of 101 and pO2 164. The patient was given a total of 4 ampules of sodium bicarbonate regarding his underlying respiratory acidosis to correct his acidosis. The patient has become hypotensive. He received a total of 2 L of IV fluid and currently is on normal saline infusion. Norepinephrine is running at 0.1 mg/kg per minute for blood pressure support. On today's blood work, his white cell count is up to 29 with a hemoglobin of 17. BUN is 28 with a creatinine of 0.7. LFTs are slightly elevated. His chest x-ray post intubation shows no evidence of any pneumothorax. The patient has bilateral saphenous emphysema. ET tube is in a good location. On clinical examination, the patient has extensive subcutaneous emphysema bilaterally on involving his chest and his neck area. Otherwise, feels well sedated for now. Fentanyl was also added to support his sedation. He remains on Decadron at a dose of 6 mg IV every 24 hours. He is also on anticoagulation with Lovenox 40 mg subcu U 12 hours. Follow-up d-dimer today's at 35. Patient was seen by Dr. Kern early this morning, his condition deteriorated, patient required intubation and mechanical ventilation. His ABG after intubation remains very poor. Patient developed worsening subcutaneous emphysema, however his chest x-ray could not rule out a very tiny right apical pneumothorax versus artifact. Continues to have groundglass infiltrates bilaterally. Because of his worsening subcutaneous emphysema, thoracic surgery was consulted. ABG post intubation showed a pO2 of 137 pCO2 of 87 pH of 7.18. Patient has significantly elevated WBC count of 29.6. Hemoglobin is 17. Elect ra lites are normal except for potassium of 5.4. Renal profile is normal. His inflammatory markers are worse with LDH of almost 10,000. And C-reactive protein is 501. Obviously the patient is taking a downhill course, and he is clinically deteriorating. He is now on assist control rate of 34 tidal volume is 400 FiO2 is 75% PEEP of 18 peak airway pressure is 35 and plateau pressure is 32. Fluids-rodriguez he is on IV fluid at KVO, propofol at 75 fentanyl 2 Nimbex at one and norepinephrine at 0.2. Patient was reevaluated today on 06/21/2020, patient remains intubated and mechanically ventilated. Patient is on assist control rate of 34, tidal volume is 400 FiO2 is 100% PEEP of 16. ABG showed a pO2 of 77 pCO2 of 78 pH of 7.31. WBC count is 15.9 hemoglobin is 14.6, d-dimer is down to 14.68, it was 35 yesterday patient had bilateral chest tube placement yesterday, chest x-ray showed improvement, hardly any pneumothorax is noted, subcutaneous emphysema seems to be less. Electro lites are normal renal profile is normal LDH is 3891 C-reactive protein is 4.1 CPK is 902. WBC count is 15.9 hemoglobin is 14.6. Peak airway pressure is 35 static pressures 29. Patient remains on norepineph rine, fentanyl, propofol 75 Nimbex, and he is still receiving sodium bicarb drip. Based on his ABG, I will cut it down. I was able to cut down his FiO2 down to 80%, kept him on a PEEP of 16, and my plan is to eventually taper down his FiO2 and tapered down his speech. Patient remains on enteral feeding using Nepro /. Chest x-ray continues to show bilateral patchy opacities, and subcutaneous emphysema. Improved chest x-ray compared to yesterday. Less subcutaneous emphysema, and less pulmonary opacities noted. Patient was reevaluated today on 06/22/2020, remains in the ICU, intubated and mechanically ventilated. He is on assist control rate of 34 tidal volume is 400 FiO2 is 100% PEEP is 20. ABG showed a pO2 of 95 pCO2 of 86 pH of 7.33, hence I cut down the FiO2 down to 70% and kept the same vent settings. Patient had peak airway pressure of 40 static pressure of 24. Remains on propofol at 75., fentanyl, at 2, Nimbex at 2 and bicarb at 75 mL per hour. Patient remains sedated and paralyzed, I cut down his bicarb drip because of his improving acidosis. Patient continues to have bilateral chest tubes, no air leak in either chest tube. Remains on enteral feeding/Nepro /. Patient is in sinus rhythm, a bit tachycardic at 108, hemodynamically stable, not requiring any pressors. WBC count is 20.3 hemoglobin is 15.7. Electro lites are normal. Renal profile is normal. LDH is 3346 and CPK is 365 C-reactive protein is 4.1. The LDH seems to be trending down, it was as high as almost 10,000. Chest x-ray is showing basically no change, bilateral chest tubes remain in place, no evidence of pneumothorax on either side, there is subcutaneous emphysema but seems to be improving. Diffuse airspace infiltrates persist, unchanged. Objective - Vital Signs Vital signs: Vital Signs Temp 98.4 F 06/22/20 08:00 Pulse 108 H 06/22/20 10:00 Resp 34 H 06/22/20 10:00 BP 199/104 06/21/20 17:30 Pulse Ox 90 L 06/22/20 10:00 Intake & Output 06/21/20 06/22/20 06/22/20 18:59 06:59 18:59 Intake Total 2278.756 1685.285 449.98 Output Total 840 870 70 Balance 1438.756 815.285 379.98 Weight 63.5 kg 71.5 kg Intake: IV 1166 1017 256 Cefepime 2 gm In Sodium 200 100 Chloride 0.9% 100 ml @ 25 mls/hr IVPB Q8HR [facility] Rx# :[id number] Dextrose 5% in Water 1, 900 975 150 000 ml @ 75 mls/hr IV . [id number] [facility] with Sodium Bicarb (1 Meq/ml) 150 ml Rx#:[id number] pressure bag 66 42 6 Intake, IV Titration 942.756 374.285 193.98 Amount Cisatracurium 200 mg In 144.145 0 93.98 Sodium Chloride 0.9% 180 ml @ 1 MCG/KG/MIN 3.81 mls/hr IV .Q24H [facility] Rx#: [id number] Clevidipine Butyrate 25 1.3 mg In Empty Bag 1 bag @ 1 MG/HR 2 mls/hr IV .Q24H [facility] Rx#:[id number] Norepinephrine 4 mg In 280.210 Sodium Chloride 0.9% 250 ml @ 0.05 MCG/KG/MIN 12. 097 mls/hr IV .Q21H [facility] Rx#:[id number] fentaNYL (PF). 1,000 mcg 184.574 172.509 In Sodium Chloride 0.9% 80 ml @ Per Protocol IV . Q0M [facility] Rx#:[id number] propofoL 1,000 mg In 333.827 200.476 100 Empty Bag 1 bag @ Titrate IV .Q0M [facility] Rx#: [id number] Tube Feeding 170 204 Other 90 Output: Chest Tube Drainage 75 100 Chest Tube Left 55 70 Chest Tube Right 20 30 Urine 765 770 70 Other: Voiding Method Indwelling Catheter Indwelling Catheter Indwelling Catheter ABP, PAP, CO, CI - Last Documented Arterial Blood Pressure 108/61 - Exam Gen.: basically unchanged, patient is paralyzed and sedated. Orogastric tube and endotracheal tube are intact. HEENT: PERRLA, EOMI, nonicteric. Periorbital swelling seems to be improving. Chest: Crackles and rhonchi bilaterally. Significant subcutaneous emphysema noted anteriorly and crepitation noted. Bilateral chest tubes are noted to be intact. Cutaneous emphysema and the chest persists. Cardiac exam: Normal S1 and S2, no gallops. Abdomen: Soft nontender no megaly no rebound. Extremities: No clubbing edema or cyanosis. Skin: No rashes. Neurologic: patient is sedated and paralyzed. Eye: Could not assess. Musculoskeletal: No deformities, patient is paralyzed, could not assess range of motion. Lymphatics: No lymphadenopathy. - Labs CBC & Chem 7: 06/22/20 03:20 06/22/20 03:20 Labs: Abnormal Lab Results - Last 24 Hours (Table) 06/21/20 06/21/20 06/21/20 Range/Units 04:20 12:14 18:19 WBC (3.8-10.6) k/uL Plt Count (150-450) k/uL Neutrophils # (1.3-7.7) k/uL Lymphocytes # (1.0-4.8) k/uL D-Dimer (<0.60) mg/L FEU ABG pH 7.31 L (7.35-7.45) ABG pCO2 87 H* (35-45) mmHg ABG pO2 31 L* (83-108) mmHg ABG HCO3 43 H* (21-25) mmol/L ABG Total CO2 46 H (19-24) mmol/L ABG O2 Saturation 58.9 L (94-97) % Carbon Dioxide (22-30) mmol/L BUN (9-20) mg/dL Creatinine (0.66-1.25) mg/dL Glucose (74-99) mg/dL POC Glucose (mg/dL) 155 H (75-99) mg/dL Calcium (8.4-10.2) mg/dL Ferritin 1493.3 H (22.0-322.0) ng/mL Alkaline Phosphatase (38-126) U/L Lactate Dehydrogenase (313-618) U/L Creatine Kinase (55-170) U/L C-Reactive Protein (<1.0) mg/dL Total Protein (6.3-8.2) g/dL Albumin (3.5-5.0) g/dL 06/21/20 06/21/20 06/21/20 Range/Units 18:42 19:50 23:42 WBC (3.8-10.6) k/uL Plt Count (150-450) k/uL Neutrophils # (1.3-7.7) k/uL Lymphocytes # (1.0-4.8) k/uL D-Dimer (<0.60) mg/L FEU ABG pH 7.28 L (7.35-7.45) ABG pCO2 93 H* (35-45) mmHg ABG pO2 67 L (83-108) mmHg ABG HCO3 44 H* (21-25) mmol/L ABG Total CO2 46 H (19-24) mmol/L ABG O2 Saturation 92.4 L (94-97) % Carbon Dioxide (22-30) mmol/L BUN (9-20) mg/dL Creatinine (0.66-1.25) mg/dL Glucose (74-99) mg/dL POC Glucose (mg/dL) 190 H 177 H (75-99) mg/dL Calcium (8.4-10.2) mg/dL Ferritin (22.0-322.0) ng/mL Alkaline Phosphatase (38-126) U/L Lactate Dehydrogenase (313-618) U/L Creatine Kinase (55-170) U/L C-Reactive Protein (<1.0) mg/dL Total Protein (6.3-8.2) g/dL Albumin (3.5-5.0) g/dL 06/22/20 06/22/20 06/22/20 Range/Units 03:20 03:20 03:20 WBC 20.3 H (3.8-10.6) k/uL Plt Count 108 L (150-450) k/uL Neutrophils # 18.9 H (1.3-7.7) k/uL Lymphocytes # 0.5 L (1.0-4.8) k/uL D-Dimer 10.74 H (<0.60) mg/L FEU ABG pH (7.35-7.45) ABG pCO2 (35-45) mmHg ABG pO2 (83-108) mmHg ABG HCO3 (21-25) mmol/L ABG Total CO2 (19-24) mmol/L ABG O2 Saturation (94-97) % Carbon Dioxide 42 H* (22-30) mmol/L BUN 31 H (9-20) mg/dL Creatinine 0.63 L (0.66-1.25) mg/dL Glucose 146 H (74-99) mg/dL POC Glucose (mg/dL) (75-99) mg/dL Calcium 7.6 L (8.4-10.2) mg/dL Ferritin (22.0-322.0) ng/mL Alkaline Phosphatase 187 H (38-126) U/L Lactate Dehydrogenase 3346 H (313-618) U/L Creatine Kinase 365 H (55-170) U/L C-Reactive Protein 4.1 H (<1.0) mg/dL Total Protein 4.8 L (6.3-8.2) g/dL Albumin 2.5 L (3.5-5.0) g/dL 06/22/20 06/22/20 Range/Units 05:14 05:58 WBC (3.8-10.6) k/uL Plt Count (150-450) k/uL Neutrophils # (1.3-7.7) k/uL Lymphocytes # (1.0-4.8) k/uL D-Dimer (<0.60) mg/L FEU ABG pH 7.33 L (7.35-7.45) ABG pCO2 86 H* (35-45) mmHg ABG pO2 (83-108) mmHg ABG HCO3 45 H* (21-25) mmol/L ABG Total CO2 48 H (19-24) mmol/L ABG O2 Saturation 97.1 H (94-97) % Carbon Dioxide (22-30) mmol/L BUN (9-20) mg/dL Creatinine (0.66-1.25) mg/dL Glucose (74-99) mg/dL POC Glucose (mg/dL) 132 H (75-99) mg/dL Calcium (8.4-10.2) mg/dL Ferritin (22.0-322.0) ng/mL Alkaline Phosphatase (38-126) U/L Lactate Dehydrogenase (313-618) U/L Creatine Kinase (55-170) U/L C-Reactive Protein (<1.0) mg/dL Total Protein (6.3-8.2) g/dL Albumin (3.5-5.0) g/dL Microbiology - Last 24 Hours (Table) 06/21/20 21:50 Gram Stain - Preliminary Sputum Sputum Culture - Preliminary Assessment and Plan Assessment: Impression: Acute hypoxic respiratory failure secondary to COVID-19 pneumonia Acute barotrauma from mechanical ventilation and relatively high PEEP. Requirin g chest tube placement on left and right side. Acute leukocytosis, suspect underlying secondary bacterial infection. Elevated inflammatory markers improving based on the labs today. Hypotension post intubation, resolved. Thrombocytopenia secondary to sepsis. Recommendation: Continue ventilatory support. Continue the vitamin cocktail and COVID-19 cocktail. Continue sedation and paralysis. Including fentanyl Nimbex and propofol. Continue both chest tubes to suction, no evidence of air leak noted in the chest tubes today. However considering the patient remains on high PEEP, no plans to remove any of the chest tubes anytime soon Patient received toci and convalescent plasma. Continue GI and DVT prophylaxis. Continue nutritional support. /Enteral feeding. Continue Lovenox. Continue antibiotics /cefepime empirically, sputum cultures are pending. So far nondiagnostic. Recheck blood cultures and sputum cultures. Remains critically ill, critical care time is over 30 minutes. Time with Patient: Greater than 30
[2020-06-22 12:33] LABS: Glucose,Whole Blood 179 mg/dL (75-99)
--- NOTE | 2020-06-22 13:16 | P.PN ---
Subjective Progress Note Date: 06/22/20 HISTORY OF PRESENT ILLNESS This is a 55-year-old male patient of Dr. Maxwell Alexander with significant past medical history. Patient states he started having symptoms on June 01 and was diagnosed with COVID-19 on June 08. Patient symptoms or body aches and fatigue as well as cough with white sputum production, increasing shortness of breath and measured pulse ox at home which worsened. He complains of headache chills and nausea. Patient presented to [facility] emergency center for evaluation. Patient was afebrile, heart rate 101, blood pressure 114/75, pulse ox 86% on room air. WBC 6.4, hemoglobin 16.2, platelet count 153. D-dimer 0.84. AST 106, ALT 44, alkaline phosphatase 57, LDH 2547. CRP 150. Sodium 129, potassium 4.6, chloride 97, CO2 23, BUN 12 and creatinine 0.84. Blood sugar 114. Chest x-ray reveals extensive pulmonary infiltrates related to pneumonia and ARDS. CTA of the chest reveals no pulmonary embolism. Patchy areas of nodular consolidations in the bilateral lower lobes with groundglass consolidation of the peripheral of the bilateral upper lobes consistent with multifocal infection compatible with Covid pneumonia. No pleural effusions or pneumothorax. Patient has been seen by pulmonary medicine is not a candidate f or Remdesivir. Convalescent plasma has been ordered as well as Tocilizumab 1 dose. Patient is currently pulse ox 95% on 15 L nonrebreather. 06/15: Repeat chest x-ray reveals worsening infiltrates. Patient is currently on nonrebreather and nasal cannula with pulse ox of 89%. Patient states that he is not sleeping because of coughing. He continues to have cough, shortness of breath. Noted to be tachypneic. Patient states he is eating okay. Melatonin, Flonase and Tessalon Perles added. Patient has been afebrile, heart rate 87, respiratory rate 32, blood pressure 112/70. Repeat blood work reveals WBC 11.4, hemoglobin 15.4, platelet count 208. D-dimer 0.95. Sodium 136 other electroly jagdeep and renal function normal. Blood sugar 118. AST 96, ALT 67, alkaline phosphatase 70. LDH 2884. C-reactive protein 59.4. 06/16: Patient's pulse ox is 90-92% on high flow nasal cannula at 13 L along with 100% nonrebreather. Patient was seen by Dr. Kern plan is to try and wean off 100% oxygen. Patient states that his breathing is stable today. He continues to have shortness of breath with minimal activity and cough. Patient started on mycelex noemi for thrush. He has been afebrile, heart rate 80, blood pressure 114/69. Repeat chest x-ray reveals improving bilateral lung infiltra jagdeep. Patient is continued on dexamethasone, Lovenox and vitamin supplements. 06/17: Yesterday afternoon, received call the patient had subcutaneous emphysema that was new and stat chest x-ray was ordered. This revealed interval development of subcutaneous emphysema within the bilateral neck. Some pneumo mediastinum may be present as the source. Pneumothorax is identified. This was reviewed by Dr. Kern at the time. Last evening at 2200, A-Team was called for puffiness of the neck and shoulder skin. Repeat chest x-ray revealed prominent interval increase in subcutaneous emphysema pattern. Patient was transferred to the intensive care unit. Patient has been seen in the intensive care unit today. He remains on 15 L high flow nasal cannula in addition to 100% nonrebreather facemask. D-dimer is 17.6, LDH 533. Patient remains on Decadron, Lovenox and supplements. Promethazine was added for cough suppression. Subcutaneous emphysema is stable. 06/18 patient evaluated bedside has worsening subcutaneous emphysema. Does appear anxious on examination. He is on Xanax to 0.25 mg twice a day with no improvement in patient's and slightly. We'll repeat chest x-ray does suggest tiny pneumothorax in addition to subcutaneous emphysema. Patient is currently maintaining oxygen saturation on interval 60 L with FiO2 of 90% with a nonrebreather 100%. Minimum exertion is causing desaturation. Patient appears to have worsening inflammation markers including worsening LDH and liver enzymes. Pulmonary care for management of the Covid. Continues to keep patient on dexamethasone, convalescent plasma. Patient is not a candidate for remdesivir. We will start patient on Lexapro 10 mg daily at bedtime to help with anxiety. IV fluids switch to D5NS as patient is not eating being on mask and is hungry. 06/19 patient evaluated bedside has worsening subcutaneous emphysema, facial swelling and pneumomediastinum. Patient is alert and keeping saturation 90-92% on BiPAP. He appears anxious and is breathing at 26 respiratory rate per minute. Blood pressure 1:30/74 heart rate of 113.chest x-rays consistent with bilateral subcutaneous emphysema and pneumomediastinum any apical pneumothorax dizzy and chest tube at this point. On evaluation patient's labs patient's leukocytosis and 19 sodium stable at 1:30, creatinine 0.67 and ferritin is 3144 elevated liver enzymes early at 7846 increased from prior low albumin. patient continues to have increased in size the despite initiation of Remeron will increase Remeron to 30 mg at bedtime Xanax increased to 0.5 twice a day f rom 0.25. Ativan can be given if patient is unable to tolerate oral medication. Plan to start patient on TPN tomorrow. Low sodium could be a results of D5W 06/20: Repeat blood work reveals WBC 29.6, hemoglobin 17, platelet count 124. D- dimer greater than 35. Sodium 132, potassium 5.4, chloride 95, CO2 31, BUN 28 creatinine 0.75. Blood sugar 162. AST 131, ALT 92, alkaline phosphatase 310. LDH 9901. CK 501. C-reactive protein 3.7. Patient became more hypoxic during the night with pulse ox down to the low 70s with mental status changes. Patient was intubated and placed on mechanical ventilation. Tidal volume 400, FiO2 of 75% and PEEP of 18. He is on propofol, Nimbex, levo fed was started and he is status post 2 L of IV fluid. He has on a fentanyl drip. Patient has extensive subcutaneous emphysema. Remeron and clotrimazole discontinued 06/21: Patient remains intubated and on mechanical ventilation. Tidal volume 400, FiO2 decreased from 85-80% this morning, PEEP 16. Patient had bilateral chest tubes placed for pneumothorax bilaterally. This was done last evening. Patient is currently on Nimbex, fentanyl, levo fed. He is on tube feedings at goal. Temperature max 100.2, heart rate 107, respiratory rate 33, blood pressure 118/62, pulse ox 90% with goal to keep above 85%. Repeat blood work reveals WBC 15.9, hemoglobin 14.6, platelet count 96. Sodium 137, potassium 5.1, chloride 100, CO2 39, BUN 26 and creatinine 0.69. Phosphorus 7.3. Magnesium 3.0. Total bilirubin 0.7, AST 59, ALT 61, alkaline phosphatase 190. D-dimer 14.6. LDH 3891. CK 902. C-reactive protein 4.1. Repeat chest x-ray reveals persistent severe bilateral subcutaneous emphysema limiting assessment. Underlying groundglass changes persist. Bilateral chest tubes. Right apical pneumothorax smaller 6 mm versus 2 cm previously. Left apical pneumothorax no longer seen. Better demonstrated pneumomediastinum though suspected to have decreased compared to prior exam. Patient does have less subcutaneous emphysema. 06/22: She remains intubated and on mechanical ventilation with tidal volume 400, FiO2 was 100% this morning and decrease to 70, PEEP is 20. Patient is on propofol and fentanyl as well as Nimbex and bicarb drip. He is not on norepinephrine. Patient is on tube feedings at goal. He remains with bilateral chest tubes in place, no air leak. He has been afebrile, heart rate 108, respiratory rate 34, a pressure 108/61, pulse ox is 90%. Repeat blood work reveals WBC 20, hemoglobin 13.7. D-dimer 10.74. CO2 42, BUN 31 creatinine 0.63. Blood sugars running between 130s to 177. Repeat chest x-ray reveals stable findings. REVIEW OF SYSTEMS Unable to obtain due to intubation. PHYSICAL EXAMINATION Physical exam deferred due to positive Covid 19 and intubation. Gen: This is a 55-year-old male. He is resting in ICU bed appears to be comfortable. No respiratory distress noted. HEENT: Head is atraumatic, normocephalic. NECK: Subcutaneous emphysema. ASSESSMENT AND PLAN 1. Acute hypoxic respiratory failure secondary to Covid 19 pneumonia requiring intubation and mechanical ventilation on 06/19. Patient has been seen by pulmonary medicine status post Convalescent plasma and Tocilizumab 1 dose. Continue dexamethasone 6 mg IV every 24 hours, Lovenox 40 mg subcu twice daily, vitamins, cefepime 2 g IV piggyback every 8 hours. Patient is off vasopressors. 2. Elevated inflammatory markers secondary to Covid 19. Continue to monitor. 3. Mild hyponatremia. Continue IV fluids. 4. Elevated d-dimer. Acute pulmonary embolism has been ruled out by CTA. 5. Lymphocytopenia secondary to Covid 19. 6. Thrush. Patient started on Mycelex troches. 7. Subcutaneous emphysema and pneumomediastinum, stable. Status post bilateral chest tube insertion with improvement. 8. Thrombocytopenia secondary to Covid. Continue to monitor. 9. Metabolic acidosis. Patient is on bicarb drip. 10. GI prophylaxis. Protonix daily. 11. DVT prophylaxis. Lovenox. Prognosis is guarded. Impression and plan of care have been directed as dictated by the signing physician. Cathy Quintanilla nurse practitioner acting as scribe for signing phys ician. Objective - Vital Signs Vital signs: Vital Signs Temp 98.4 F 06/22/20 08:00 Pulse 107 H 06/22/20 09:00 Resp 34 H 06/22/20 09:00 BP 199/104 06/21/20 17:30 Pulse Ox 96 06/22/20 09:00 Intake & Output 06/21/20 06/22/20 06/22/20 18:59 06:59 18:59 Intake Total 2278.756 1685.285 349.98 Output Total 840 870 70 Balance 1438.756 815.285 279.98 Weight 63.5 kg 71.5 kg Intake: IV 1166 1017 256 Cefepime 2 gm In Sodium 200 100 Chloride 0.9% 100 ml @ 25 mls/hr IVPB Q8HR [facility] Rx# :[id number] Dextrose 5% in Water 1, 900 975 150 000 ml @ 75 mls/hr IV . [id number] [facility] with Sodium Bicarb (1 Meq/ml) 150 ml Rx#:[id number] pressure bag 66 42 6 Intake, IV Titration 942.756 374.285 93.98 Amount Cisatracurium 200 mg In 144.145 0 93.98 Sodium Chloride 0.9% 180 ml @ 1 MCG/KG/MIN 3.81 mls/hr IV .Q24H [facility] Rx#: [id number] Clevidipine Butyrate 25 1.3 mg In Empty Bag 1 bag @ 1 MG/HR 2 mls/hr IV .Q24H [facility] Rx#:[id number] Norepinephrine 4 mg In 280.210 Sodium Chloride 0.9% 250 ml @ 0.05 MCG/KG/MIN 12. 097 mls/hr IV .Q21H [facility] Rx#:[id number] fentaNYL (PF). 1,000 mcg 184.574 172.509 In Sodium Chloride 0.9% 80 ml @ Per Protocol IV . Q0M [facility] Rx#:[id number] propofoL 1,000 mg In 333.827 200.476 Empty Bag 1 bag @ Titrate IV .Q0M [facility] Rx#: [id number] Tube Feeding 170 204 Other 90 Output: Chest Tube Drainage 75 100 Chest Tube Left 55 70 Chest Tube Right 20 30 Urine 765 770 70 Other: Voiding Method Indwelling Catheter Indwelling Catheter Indwelling Catheter ABP, PAP, CO, CI - Last Documented Arterial Blood Pressure 102/59 - Labs CBC & Chem 7: 06/22/20 03:20 06/22/20 03:20 Labs: Abnormal Lab Results - Last 24 Hours (Table) 06/21/20 06/21/20 06/21/20 Range/Units 04:20 12:14 18:19 WBC (3.8-10.6) k/uL Plt Count (150-450) k/uL Neutrophils # (1.3-7.7) k/uL Lymphocytes # (1.0-4.8) k/uL D-Dimer (<0.60) mg/L FEU ABG pH 7.31 L (7.35-7.45) ABG pCO2 87 H* (35-45) mmHg ABG pO2 31 L* (83-108) mmHg ABG HCO3 43 H* (21-25) mmol/L ABG Total CO2 46 H (19-24) mmol/L ABG O2 Saturation 58.9 L (94-97) % Carbon Dioxide (22-30) mmol/L BUN (9-20) mg/dL Creatinine (0.66-1.25) mg/dL Glucose (74-99) mg/dL POC Glucose (mg/dL) 155 H (75-99) mg/dL Calcium (8.4-10.2) mg/dL Ferritin 1493.3 H (22.0-322.0) ng/mL Alkaline Phosphatase (38-126) U/L Lactate Dehydrogenase (313-618) U/L Creatine Kinase (55-170) U/L C-Reactive Protein (<1.0) mg/dL Total Protein (6.3-8.2) g/dL Albumin (3.5-5.0) g/dL 06/21/20 06/21/20 06/21/20 Range/Units 18:42 19:50 23:42 WBC (3.8-10.6) k/uL Plt Count (150-450) k/uL Neutrophils # (1.3-7.7) k/uL Lymphocytes # (1.0-4.8) k/uL D-Dimer (<0.60) mg/L FEU ABG pH 7.28 L (7.35-7.45) ABG pCO2 93 H* (35-45) mmHg ABG pO2 67 L (83-108) mmHg ABG HCO3 44 H* (21-25) mmol/L ABG Total CO2 46 H (19-24) mmol/L ABG O2 Saturation 92.4 L (94-97) % Carbon Dioxide (22-30) mmol/L BUN (9-20) mg/dL Creatinine (0.66-1.25) mg/dL Glucose (74-99) mg/dL POC Glucose (mg/dL) 190 H 177 H (75-99) mg/dL Calcium (8.4-10.2) mg/dL Ferritin (22.0-322.0) ng/mL Alkaline Phosphatase (38-126) U/L Lactate Dehydrogenase (313-618) U/L Creatine Kinase (55-170) U/L C-Reactive Protein (<1.0) mg/dL Total Protein (6.3-8.2) g/dL Albumin (3.5-5.0) g/dL 06/22/20 06/22/20 06/22/20 Range/Units 03:20 03:20 03:20 WBC 20.3 H (3.8-10.6) k/uL Plt Count 108 L (150-450) k/uL Neutrophils # 18.9 H (1.3-7.7) k/uL Lymphocytes # 0.5 L (1.0-4.8) k/uL D-Dimer 10.74 H (<0.60) mg/L FEU ABG pH (7.35-7.45) ABG pCO2 (35-45) mmHg ABG pO2 (83-108) mmHg ABG HCO3 (21-25) mmol/L ABG Total CO2 (19-24) mmol/L ABG O2 Saturation (94-97) % Carbon Dioxide 42 H* (22-30) mmol/L BUN 31 H (9-20) mg/dL Creatinine 0.63 L (0.66-1.25) mg/dL Glucose 146 H (74-99) mg/dL POC Glucose (mg/dL) (75-99) mg/dL Calcium 7.6 L (8.4-10.2) mg/dL Ferritin (22.0-322.0) ng/mL Alkaline Phosphatase 187 H (38-126) U/L Lactate Dehydrogenase 3346 H (313-618) U/L Creatine Kinase 365 H (55-170) U/L C-Reactive Protein 4.1 H (<1.0) mg/dL Total Protein 4.8 L (6.3-8.2) g/dL Albumin 2.5 L (3.5-5.0) g/dL 06/22/20 06/22/20 Range/Units 05:14 05:58 WBC (3.8-10.6) k/uL Plt Count (150-450) k/uL Neutrophils # (1.3-7.7) k/uL Lymphocytes # (1.0-4.8) k/uL D-Dimer (<0.60) mg/L FEU ABG pH 7.33 L (7.35-7.45) ABG pCO2 86 H* (35-45) mmHg ABG pO2 (83-108) mmHg ABG HCO3 45 H* (21-25) mmol/L ABG Total CO2 48 H (19-24) mmol/L ABG O2 Saturation 97.1 H (94-97) % Carbon Dioxide (22-30) mmol/L BUN (9-20) mg/dL Creatinine (0.66-1.25) mg/dL Glucose (74-99) mg/dL POC Glucose (mg/dL) 132 H (75-99) mg/dL Calcium (8.4-10.2) mg/dL Ferritin (22.0-322.0) ng/mL Alkaline Phosphatase (38-126) U/L Lactate Dehydrogenase (313-618) U/L Creatine Kinase (55-170) U/L C-Reactive Protein (<1.0) mg/dL Total Protein (6.3-8.2) g/dL Albumin (3.5-5.0) g/dL Microbiology - Last 24 Hours (Table) 06/21/20 21:50 Gram Stain - Preliminary Sputum Sputum Culture - Preliminary
[2020-06-22] MEDS: CLEVIDIPINE BUTYRATE 25 MG in EMPTY BAG 1 BAG IV SCH (16:05)
[2020-06-22 17:58] LABS: Glucose,Whole Blood 170 mg/dL (75-99)
[2020-06-22 23:54] LABS: Glucose,Whole Blood 140 mg/dL (75-99)
[2020-06-23] MEDS: INSULIN ASPART (NovoLOG) 100 UNIT/ML VIAL SQ SCH ×4 (01:09→17:51)
[2020-06-23] MEDS: fentaNYL (PF). 1,000 MCG in SODIUM CHLORIDE 0.9% 80 ML IV SCH ×5 (02:12→22:53)
[2020-06-23] MEDS: ARTIFICIAL TEARS-HYPROMELLOSE DROPS 15 ML BTL BOTH EYES SCH ×5 (02:52→20:15)
[2020-06-23 05:00] LABS: Basophils % (A) 0 %; Eosinophils # (A) 0.2 k/uL (0-0.7); Eosinophils % (A) 1 %; HCT 39.7 % (39.0-53.0); HGB 12.9 gm/dL (13.0-17.5); Lymphocytes # (A) 0.5 k/uL (1.0-4.8); Lymphocytes % (A) 3 %; MCH 30.4 pg (25.0-35.0); MCHC 32.4 g/dL (31.0-37.0); MCV 93.8 fL (80.0-100.0); Mean Platelet Volume 8.6; Monocytes # (A) 0.3 k/uL (0-1.0); Monocytes % (A) 2 %; Neutrophils # (A) 16.5 k/uL (1.3-7.7); Neutrophils % (A) 94 %; Platelet Count 129 k/uL (150-450); RBC 4.23 m/uL (4.30-5.90); RDW 13.9 % (11.5-15.5); WBC 17.6 k/uL (3.8-10.6)
[2020-06-23 05:17] LABS: ALT 43 U/L (4-49); AST 50 U/L (17-59); African American GFR (CKD) >90 (>60 ml/min/1.73 sqM); Albumin 2.7 g/dL (3.5-5.0); Alkaline Phosphatase 174 U/L (38-126); Blood Urea Nitrogen 39 mg/dL (9-20); Calcium 8.2 mg/dL (8.4-10.2); Chloride 94 mmol/L (98-107); Creatine Kinase 178 U/L (55-170); Glucose 138 mg/dL (74-99); Non-African American GFR(CKD) >90 (>60 ml/min/1.73 sqM); Potassium 5.2 mmol/L (3.5-5.1); Sodium 139 mmol/L (137-145); Total Bilirubin 0.6 mg/dL (0.2-1.3); Total Protein 5.1 g/dL (6.3-8.2)
[2020-06-23 05:39] LABS: ABG Base Excess 24.2 mmol/L; ABG Oxygen Saturation 95.8 % (94-97); ABG PH 7.37 (7.35-7.45); ABG PO2 77 mmHg (83-108); ABG TCO2 52 mmol/L (19-24); Allen Test Performed? Yes
[2020-06-23 05:41] LABS: ABG HCO3 50 mmol/L (21-25); ABG PCO2 86 mmHg (35-45)
[2020-06-23 05:49] LABS: Anion Gap 0 mmol/L
[2020-06-23] MEDS: CLEVIDIPINE BUTYRATE 25 MG in EMPTY BAG 1 BAG IV SCH ×7 (05:49→22:42)
[2020-06-23 05:51] LABS: Carbon Dioxide 45 mmol/L (22-30); LDH 2747 U/L (313-618)
[2020-06-23 05:55] LABS: Glucose,Whole Blood 142 mg/dL (75-99)
--- NOTE | 2020-06-23 06:23 | XR ---
EXAMINATION TYPE: XR chest 1V portable DATE OF EXAM: 06/23/2020 CLINICAL HISTORY: Difficulty breathing progress study. TECHNIQUE: Single AP portable upright view of the chest is obtained. COMPARISON: Chest x-ray from one day earlier FINDINGS: Stable endotracheal and orogastric tubes. Stable bilateral apical chest tubes. Stable righ t-sided PICC line. Persistent extensive overlying subcutaneous emphysema. No obvious residual pneumothorax bilaterally. Multifocal and confluent opacities bilaterally remain present, greatest in the lower lung. Pneumomedi astinum redemonstrated. Cardiac silhouette size stable and within normal limits. Osseous structures a re intact. IMPRESSION: Redemonstration of pneumomediastinum. Extensive overlying subcutaneous emphysema redemons trated. Persistent bilateral multifocal and confluent opacities most prominent in the lower lungs con sistent with covid-19 infection redemonstrated. Bilateral chest tubes without visualized pneumothorax . No significant change from one day earlier.
--- NOTE | 2020-06-23 07:41 | P.PN ---
Subjective Progress Note Date: 06/23/20 Principal diagnosis: Acute COVID-19 pneumonia, pneumomediastinum, extensive subcutaneous emphysema, acute hypoxic respiratory failure, elevated inflammatory markers secondary to Co vid-19, leukocytosis, thrombocytopenia, hypotension post intubation, respiratory acidosis POD #3 placement of bilateral chest tubes by Dr. Dominique The patient remains laying in bed in the intensive care unit, remains intubated, sedated, and paralyzed. Bilateral chest tubes remain in place, no air leak present in the left chest tube, small intermittent air leak present in right chest tube, minimal drainage, subcutaneous emphysema remains present although appears slightly better. Ventilator changes continued to be made by pulmonology, currently on 65% FiO2 and 20 PEEP. WBC 17.6, platelet 129, D-dimer 4.66, CRP 7.0, LDH 2747. Objective - Vital Signs Vital signs: Vital Signs Temp 98.8 F 06/23/20 04:00 Pulse 118 H 06/23/20 07:00 Resp 23 06/23/20 07:00 BP 199/104 06/21/20 17:30 Pulse Ox 88 L 06/23/20 07:00 Intake & Output 06/22/20 06/23/20 06/23/20 18:59 06:59 18:59 Intake Total 3789.093 0808.203 240.270 Output Total 559 670 100 Balance 634.567 647.203 140.270 Weight 72 kg Intake: IV 786 473 43 Cefepime 2 gm In Sodium 200 Chloride 0.9% 100 ml @ 25 mls/hr IVPB Q8HR [facility] Rx# :[id number] Dextrose 5% in Water 1, 550 440 40 000 ml @ 40 mls/hr IV . Q24H [facility] with Sodium Bicarb (1 Meq/ml) 150 ml Rx#:[id number] pressure bag 36 33 3 Intake, IV Titration 373.567 584.203 180.270 Amount Cisatracurium 200 mg In 93.98 172.403 Sodium Chloride 0.9% 180 ml @ 1 MCG/KG/MIN 3.81 mls/hr IV .Q24H [facility] Rx#: [id number] Clevidipine Butyrate 25 1.233 7.867 mg In Empty Bag 1 bag @ 1 MG/HR 2 mls/hr IV .Q24H [facility] Rx#:[id number] fentaNYL (PF). 1,000 mcg 79.587 224.154 In Sodium Chloride 0.9% 80 ml @ Per Protocol IV . Q0M [facility] Rx#:[id number] propofoL 1,000 mg In 200 358.816 Empty Bag 1 bag @ Titrate IV .Q0M [facility] Rx#: [id number] Tube Feeding 34 170 17 Other 90 Output: Urine 559 670 100 Other: Voiding Method Indwelling Catheter Indwelling Catheter ABP, PAP, CO, CI - Last Documented Arterial Blood Pressure 153/74 - Exam CONSTITUTIONAL: Currently sedated and paralyzed on mechanical ventilation EYES: Subcutaneous emphysema present over both eyes ENT: Moist mucous membranes without oral lesions present NECK: No masses, no bruits, trachea midline RESPIRATORY: Lungs sounds diminished to auscultation bilaterally. Currently on mechanical ventilation, assist control mode, FiO2 65%, PEEP 20, tidal volume 400, respiratory rate 34. ABGs this am on those settings 7.37/86/77/50/95%/BE 24.2. 8.0 ET tube present, 25 at the lip. Subcutaneous emphysema present to the chest, arms, neck, face. CARDIOVASCULAR: S1, S2 present. Tachycardic but regular rate and rhythm, sinus tach on telemetry with heart rate in the low 100s. Palpable peripheral pulses bilaterally. SCDs present. GASTROINTESTINAL: Abdomen soft, nontender, nondistended without masses or organomegaly noted. Active bowel sounds present 4 quadrants. OG tube present, tube feeding infusing at 17 ml/hr. GENITOURINARY: Indwelling catheter present draining clear, yellow urine. Urine output 30-150 mL per hour INTEGUMENTARY: Skin is warm and slightly moist NEUROLOGIC: Unable to assess as patient is currently receiving IV paralytic INVASIVE LINES/TUBES: Right PICC line, left radial arterial line present. Right and left pleural chest tubes present, small intermittent air leak in the right chest tube, no air leak in the left chest tube, minimal drainage. - Allied health notes Allied health notes reviewed: nursing - Labs CBC & Chem 7: 06/23/20 04:27 06/23/20 04:27 Labs: Abnormal Lab Results - Last 24 Hours (Table) 06/22/20 06/22/20 06/22/20 Range/Units 12:32 17:55 23:52 WBC (3.8-10.6) k/uL RBC (4.30-5.90) m/uL Hgb (13.0-17.5) gm/dL Plt Count (150-450) k/uL Neutrophils # (1.3-7.7) k/uL Lymphocytes # (1.0-4.8) k/uL D-Dimer (<0.60) mg/L FEU ABG pCO2 (35-45) mmHg ABG pO2 (83-108) mmHg ABG HCO3 (21-25) mmol/L ABG Total CO2 (19-24) mmol/L Potassium (3.5-5.1) mmol/L Chloride (98-107) mmol/L Carbon Dioxide (22-30) mmol/L BUN (9-20) mg/dL Creatinine (0.66-1.25) mg/dL Glucose (74-99) mg/dL POC Glucose (mg/dL) 179 H 170 H 140 H (75-99) mg/dL Calcium (8.4-10.2) mg/dL Alkaline Phosphatase (38-126) U/L Lactate Dehydrogenase (313-618) U/L Creatine Kinase (55-170) U/L C-Reactive Protein (<1.0) mg/dL Total Protein (6.3-8.2) g/dL Albumin (3.5-5.0) g/dL 06/23/20 06/23/20 06/23/20 Range/Units 04:27 04:27 04:27 WBC 17.6 H (3.8-10.6) k/uL RBC 4.23 L (4.30-5.90) m/uL Hgb 12.9 L (13.0-17.5) gm/dL Plt Count 129 L (150-450) k/uL Neutrophils # 16.5 H (1.3-7.7) k/uL Lymphocytes # 0.5 L (1.0-4.8) k/uL D-Dimer 4.66 H (<0.60) mg/L FEU ABG pCO2 (35-45) mmHg ABG pO2 (83-108) mmHg ABG HCO3 (21-25) mmol/L ABG Total CO2 (19-24) mmol/L Potassium 5.2 H (3.5-5.1) mmol/L Chloride 94 L (98-107) mmol/L Carbon Dioxide 45 H* (22-30) mmol/L BUN 39 H (9-20) mg/dL Creatinine 0.63 L (0.66-1.25) mg/dL Glucose 138 H (74-99) mg/dL POC Glucose (mg/dL) (75-99) mg/dL Calcium 8.2 L (8.4-10.2) mg/dL Alkaline Phosphatase 174 H (38-126) U/L Lactate Dehydrogenase 2747 H (313-618) U/L Creatine Kinase 178 H (55-170) U/L C-Reactive Protein 7.0 H (<1.0) mg/dL Total Protein 5.1 L (6.3-8.2) g/dL Albumin 2.7 L (3.5-5.0) g/dL 06/23/20 06/23/20 Range/Units 05:30 05:53 WBC (3.8-10.6) k/uL RBC (4.30-5.90) m/uL Hgb (13.0-17.5) gm/dL Plt Count (150-450) k/uL Neutrophils # (1.3-7.7) k/uL Lymphocytes # (1.0-4.8) k/uL D-Dimer (<0.60) mg/L FEU ABG pCO2 86 H* (35-45) mmHg ABG pO2 77 L (83-108) mmHg ABG HCO3 50 H* (21-25) mmol/L ABG Total CO2 52 H (19-24) mmol/L Potassium (3.5-5.1) mmol/L Chloride (98-107) mmol/L Carbon Dioxide (22-30) mmol/L BUN (9-20) mg/dL Creatinine (0.66-1.25) mg/dL Glucose (74-99) mg/dL POC Glucose (mg/dL) 142 H (75-99) mg/dL Calcium (8.4-10.2) mg/dL Alkaline Phosphatase (38-126) U/L Lactate Dehydrogenase (313-618) U/L Creatine Kinase (55-170) U/L C-Reactive Protein (<1.0) mg/dL Total Protein (6.3-8.2) g/dL Albumin (3.5-5.0) g/dL Microbiology - Last 24 Hours (Table) 06/21/20 21:50 Gram Stain - Preliminary Sputum Sputum Culture - Preliminary - Imaging and Cardiology Chest x-ray: report reviewed, image reviewed Assessment and Plan Assessment: 1. Acute COVID-19 pneumonia 2. Pneumomediastinum, subcutaneous emphysema, S/P placement of right and left pleural chest tubes by pulmonology 3. Acute hypoxic respiratory failure, currently on mechanical ventilation 4. Elevated inflammatory markers secondary to Covid 5. Leukocytosis, thrombocytopenia 6. Hypotension post intubation, currently off pressors 7. Respiratory acidosis Plan: 1. Continue both chest tubes to continuous wall suction, monitor for resolution of right-sided air leak, monitor for resolution of subcutaneous emphysema 2. Mechanical ventilation, sedation, paralytic, covid managment per care management specialist 3. No surgery is warranted 4. GI/DVT prophylaxis 5. Will monitor daily CXR 6. Patient remains critically ill with poor prognosis Time with Patient: Less than 30
[2020-06-23] MEDS: CISATRACURIUM 200 MG in SODIUM CHLORIDE 0.9% 180 ML IV SCH (08:05)
[2020-06-23] MEDS: CEFEPIME 2 GM in SODIUM CHLORIDE 0.9% 100 ML IVPB SCH ×2 (08:05→16:48)
[2020-06-23] MEDS: ENOXAPARIN 40 MG/0.4 ML SYRINGE SQ SCH ×2 (08:06→20:15)
[2020-06-23] MEDS: ASCORBIC ACID 500 MG TAB PO SCH (08:06)
[2020-06-23] MEDS: CHLORHEXIDINE GLUCONATE 15 ML CUP MUCOUS MEM SCH ×2 (08:06→20:15)
[2020-06-23] MEDS: ZINC SULFATE 220 MG CAP PO SCH (08:06)
[2020-06-23] MEDS: CHOLECALCIFEROL 25 MCG (1000 IU) TABLET PO SCH (08:06)
[2020-06-23] MEDS: PANTOPRAZOLE 40 MG/10 ML VIAL IVP SCH (08:06)
[2020-06-23] MEDS: DEXAMETHASONE SOD PHOSPHATE 10 MG/ML 1 ML VIAL IV SCH (08:06)
[2020-06-23] MEDS: DEXTROSE 5% IN WATER 1,000 ML with SODIUM BICARB (1 MEQ/ML) 150 ML IV SCH ×2 (10:18→22:43)
--- NOTE | 2020-06-23 11:42 | P.PN ---
Subjective Progress Note Date: 06/23/20 Principal diagnosis: Acute hypoxic failure secondary to COVID-19 pneumonia 06/20/2020, the patient is being seen for a follow-up. The patient is a case of COVID-19 related pneumonia [place] by pneumomediastinum and bilateral subcutaneous emphysema. Overnight, he was kept on a BiPAP and the patient progressively became more hypoxic. He was on a BiPAP pressure of 12/6 with an FiO2 of 100%. I increased him up to 14/10 and later on up to 16/12 and despite that the patient continued to be hypoxic and in fact his pulse ox dropped down to the low 70s and he became more hypoxic and altered and agitated. During the course of his treatment, the patient's anxiety level is going up and he was becoming very much agitated. He was started on Precedex. Ultimately the decision was to intubate the patient put him on a mechanical ventilator. Currently is sedated with a combination of propofol and fentanyl and the patient is also paralyzed with Nimbex. He is on a mechanical ventilator. Patient is currently on propofol at a dose of 75 mcg/kg per minute. The patient is also paralyzed with Nimbex at a dose of 1 mg/kg per minute. He is on a mechanical ventilator currently on assist control mode with a tidal volume 400, rate of 34, FiO2 of 100% and PEEP of 20. Most recent blood gas showed a pH of 7.08 with a pO2 of 101 and pO2 164. The patient was given a total of 4 ampules of sodium bicarbonate regarding his underlying respiratory acidosis to correct his acidosis. The patient has become hypotensive. He received a total of 2 L of IV fluid and currently is on normal saline infusion. Norepinephrine is running at 0.1 mg/kg per minute for blood pressure support. On today's blood work, his white cell count is up to 29 with a hemoglobin of 17. BUN is 28 with a creatinine of 0.7. LFTs are slightly elevated. His chest x-ray post intubation shows no evidence of any pneumothorax. The patient has bilateral saphenous emphysema. ET tube is in a good location. On clinical examination, the patient has extensive subcutaneous emphysema bilaterally on involving his chest and his neck area. Otherwise, feels well sedated for now. Fentanyl was also added to support his sedation. He remains on Decadron at a dose of 6 mg IV every 24 hours. He is also on anticoagulation with Lovenox 40 mg subcu U 12 hours. Follow-up d-dimer today's at 35. Patient was seen by Dr. Kern early this morning, his condition deteriorated, patient required intubation and mechanical ventilation. His ABG after intubation remains very poor. Patient developed worsening subcutaneous emphysema, however his chest x-ray could not rule out a very tiny right apical pneumothorax versus artifact. Continues to have groundglass infiltrates bilaterally. Because of his worsening subcutaneous emphysema, thoracic surgery was consulted. ABG post intubation showed a pO2 of 137 pCO2 of 87 pH of 7.18. Patient has significantly elevated WBC count of 29.6. Hemoglobin is 17. Elect ra lites are normal except for potassium of 5.4. Renal profile is normal. His inflammatory markers are worse with LDH of almost 10,000. And C-reactive protein is 501. Obviously the patient is taking a downhill course, and he is clinically deteriorating. He is now on assist control rate of 34 tidal volume is 400 FiO2 is 75% PEEP of 18 peak airway pressure is 35 and plateau pressure is 32. Fluids-rodriguez he is on IV fluid at KVO, propofol at 75 fentanyl 2 Nimbex at one and norepinephrine at 0.2. Patient was reevaluated today on 06/21/2020, patient remains intubated and mechanically ventilated. Patient is on assist control rate of 34, tidal volume is 400 FiO2 is 100% PEEP of 16. ABG showed a pO2 of 77 pCO2 of 78 pH of 7.31. WBC count is 15.9 hemoglobin is 14.6, d-dimer is down to 14.68, it was 35 yesterday patient had bilateral chest tube placement yesterday, chest x-ray showed improvement, hardly any pneumothorax is noted, subcutaneous emphysema seems to be less. Electro lites are normal renal profile is normal LDH is 3891 C-reactive protein is 4.1 CPK is 902. WBC count is 15.9 hemoglobin is 14.6. Peak airway pressure is 35 static pressures 29. Patient remains on norepineph rine, fentanyl, propofol 75 Nimbex, and he is still receiving sodium bicarb drip. Based on his ABG, I will cut it down. I was able to cut down his FiO2 down to 80%, kept him on a PEEP of 16, and my plan is to eventually taper down his FiO2 and tapered down his speech. Patient remains on enteral feeding using Nepro 17/17. Chest x-ray continues to show bilateral patchy opacities, and subcutaneous emphysema. Improved chest x-ray compared to yesterday. Less subcutaneous emphysema, and less pulmonary opacities noted. Patient was reevaluated today on 06/22/2020, remains in the ICU, intubated and mechanically ventilated. He is on assist control rate of 34 tidal volume is 400 FiO2 is 100% PEEP is 20. ABG showed a pO2 of 95 pCO2 of 86 pH of 7.33, hence I cut down the FiO2 down to 70% and kept the same vent settings. Patient had peak airway pressure of 40 static pressure of 24. Remains on propofol at 75., fentanyl, at 2, Nimbex at 2 and bicarb at 75 mL per hour. Patient remains sedated and paralyzed, I cut down his bicarb drip because of his improving acidosis. Patient continues to have bilateral chest tubes, no air leak in either chest tube. Remains on enteral feeding/Nepro 17/17. Patient is in sinus rhythm, a bit tachycardic at 108, hemodynamically stable, not requiring any pressors. WBC count is 20.3 hemoglobin is 15.7. Electro lites are normal. Renal profile is normal. LDH is 3346 and CPK is 365 C-reactive protein is 4.1. The LDH seems to be trending down, it was as high as almost 10,000. Chest x-ray is showing basically no change, bilateral chest tubes remain in place, no evidence of pneumothorax on either side, there is subcutaneous emphysema but seems to be improving. Diffuse airspace infiltrates persist, unchanged. Patient was reevaluated today on 06/23/2020, remains intubated and mechanically ventilated. Remains in the ICU, sedated and paralyzed. He is on assist control rate of 34, tidal volume is 400 FiO2 is 65 and PEEP is 20. ABG showed a pO2 of 77 pCO2 of 86 pH of 7.37. Patient remains on propofol at 75, fentanyl S3, pleasant Pleurx at 8 mg per hour, Nimbex at 2. Plan to give the patient a trial of Nimbex holiday today if possible. Remains on Nepro 17/17. Chest x-ray is basically the same, continues to show bilateral patchy infiltrates and subcutaneous emphysema. Patient is hemodynamically stable, not requiring any pressors, however he is a bit tachycardic rate is 120. Both sided chest tubes are about the same, and no leaks noted. Basic metabolic profile is normal, bicarb is 45. Patient remains on bicarb drip. D-dimer is 4.66. WBC count is 17.6 hemoglobin is 12.9. LDH remains high at 2747, C-reactive protein is 7 and CPK is 178. Objective - Vital Signs Vital signs: Vital Signs Temp 98.3 F 06/23/20 08:00 Pulse 117 H 06/23/20 10:00 Resp 35 H 06/23/20 10:00 BP 199/104 06/21/20 17:30 Pulse Ox 88 L 06/23/20 10:00 Intake & Output 06/22/20 06/23/20 06/23/20 18:59 06:59 18:59 Intake Total 5596.432 0616.203 639.393 Output Total 559 670 170 Balance 634.567 647.203 469.393 Weight 72 kg Intake: IV 786 473 186 Cefepime 2 gm In Sodium 200 100 Chloride 0.9% 100 ml @ 25 mls/hr IVPB Q8HR [facility] Rx# :[id number] Dextrose 5% in Water 1, 550 440 80 000 ml @ 25 mls/hr IV . Q24H [facility] with Sodium Bicarb (1 Meq/ml) 150 ml Rx#:[id number] pressure bag 36 33 6 Intake, IV Titration 373.567 584.203 419.393 Amount Cisatracurium 200 mg In 93.98 179.261 Sodium Chloride 0.9% 180 ml @ 1 MCG/KG/MIN 3.81 mls/hr IV .Q24H [facility] Rx#: [id number] Clevidipine Butyrate 25 1.233 56.734 mg In Empty Bag 1 bag @ 1 MG/HR 2 mls/hr IV .Q24H [facility] Rx#:[id number] fentaNYL (PF). 1,000 mcg 79.587 224.154 25.718 In Sodium Chloride 0.9% 80 ml @ Per Protocol IV . Q0M [facility] Rx#:[id number] propofoL 1,000 mg In 200 358.816 157.68 Empty Bag 1 bag @ Titrate IV .Q0M [facility] Rx#: [id number] Tube Feeding 34 170 34 Other 90 Output: Urine 559 670 170 Other: Voiding Method Indwelling Catheter Indwelling Catheter Indwelling Catheter ABP, PAP, CO, CI - Last Documented Arterial Blood Pressure 120/64 - Exam Gen.: basically unchanged, patient is paralyzed and sedated. Orogastric tube and endotracheal tube are intact. Bilateral chest tubes are intact. HEENT: PERRLA, EOMI, nonicteric. Periorbital swelling seems to be improving. Specially in the left eye, and slightly improved in the right orbit area. Chest: Crackles and rhonchi bilaterally. Significant subcutaneous emphysema noted anteriorly and crepitation noted. Bilateral chest tubes are noted to be intact. SubCutaneous emphysema and the chest persists. Cardiac exam: Normal S1 and S2, no gallops. Abdomen: Soft nontender no megaly no rebound. Extremities: No clubbing edema or cyanosis. Skin: No rashes. Neurologic: patient is sedated and paralyzed. Eye: Could not assess. Musculoskeletal: No deformities, patient is paralyzed, could not assess range of motion. Lymphatics: No lymphadenopathy. - Labs CBC & Chem 7: 06/23/20 04:27 06/23/20 04:27 Labs: Abnormal Lab Results - Last 24 Hours (Table) 06/22/20 06/22/20 06/22/20 Range/Units 12:32 17:55 23:52 WBC (3.8-10.6) k/uL RBC (4.30-5.90) m/uL Hgb (13.0-17.5) gm/dL Plt Count (150-450) k/uL Neutrophils # (1.3-7.7) k/uL Lymphocytes # (1.0-4.8) k/uL D-Dimer (<0.60) mg/L FEU ABG pCO2 (35-45) mmHg ABG pO2 (83-108) mmHg ABG HCO3 (21-25) mmol/L ABG Total CO2 (19-24) mmol/L Potassium (3.5-5.1) mmol/L Chloride (98-107) mmol/L Carbon Dioxide (22-30) mmol/L BUN (9-20) mg/dL Creatinine (0.66-1.25) mg/dL Glucose (74-99) mg/dL POC Glucose (mg/dL) 179 H 170 H 140 H (75-99) mg/dL Calcium (8.4-10.2) mg/dL Alkaline Phosphatase (38-126) U/L Lactate Dehydrogenase (313-618) U/L Creatine Kinase (55-170) U/L C-Reactive Protein (<1.0) mg/dL Total Protein (6.3-8.2) g/dL Albumin (3.5-5.0) g/dL 06/23/20 06/23/20 06/23/20 Range/Units 04:27 04:27 04:27 WBC 17.6 H (3.8-10.6) k/uL RBC 4.23 L (4.30-5.90) m/uL Hgb 12.9 L (13.0-17.5) gm/dL Plt Count 129 L (150-450) k/uL Neutrophils # 16.5 H (1.3-7.7) k/uL Lymphocytes # 0.5 L (1.0-4.8) k/uL D-Dimer 4.66 H (<0.60) mg/L FEU ABG pCO2 (35-45) mmHg ABG pO2 (83-108) mmHg ABG HCO3 (21-25) mmol/L ABG Total CO2 (19-24) mmol/L Potassium 5.2 H (3.5-5.1) mmol/L Chloride 94 L (98-107) mmol/L Carbon Dioxide 45 H* (22-30) mmol/L BUN 39 H (9-20) mg/dL Creatinine 0.63 L (0.66-1.25) mg/dL Glucose 138 H (74-99) mg/dL POC Glucose (mg/dL) (75-99) mg/dL Calcium 8.2 L (8.4-10.2) mg/dL Alkaline Phosphatase 174 H (38-126) U/L Lactate Dehydrogenase 2747 H (313-618) U/L Creatine Kinase 178 H (55-170) U/L C-Reactive Protein 7.0 H (<1.0) mg/dL Total Protein 5.1 L (6.3-8.2) g/dL Albumin 2.7 L (3.5-5.0) g/dL 06/23/20 06/23/20 Range/Units 05:30 05:53 WBC (3.8-10.6) k/uL RBC (4.30-5.90) m/uL Hgb (13.0-17.5) gm/dL Plt Count (150-450) k/uL Neutrophils # (1.3-7.7) k/uL Lymphocytes # (1.0-4.8) k/uL D-Dimer (<0.60) mg/L FEU ABG pCO2 86 H* (35-45) mmHg ABG pO2 77 L (83-108) mmHg ABG HCO3 50 H* (21-25) mmol/L ABG Total CO2 52 H (19-24) mmol/L Potassium (3.5-5.1) mmol/L Chloride (98-107) mmol/L Carbon Dioxide (22-30) mmol/L BUN (9-20) mg/dL Creatinine (0.66-1.25) mg/dL Glucose (74-99) mg/dL POC Glucose (mg/dL) 142 H (75-99) mg/dL Calcium (8.4-10.2) mg/dL Alkaline Phosphatase (38-126) U/L Lactate Dehydrogenase (313-618) U/L Creatine Kinase (55-170) U/L C-Reactive Protein (<1.0) mg/dL Total Protein (6.3-8.2) g/dL Albumin (3.5-5.0) g/dL Microbiology - Last 24 Hours (Table) 06/21/20 21:50 Gram Stain - Preliminary Sputum Sputum Culture - Preliminary Assessment and Plan Assessment: Impression: Acute hypoxic respiratory failure secondary to COVID-19 pneumonia Acute barotrauma from mechanical ventilation and relatively high PEEP. Requiring chest tube placement on left and right side. Acute leukocytosis, suspect underlying secondary bacterial infection. Sputum cultures from 06/21 and 06/20 are so far nondiagnostic. Final report is pending. Elevated inflammatory markers improving based on the labs today. Hypotension post intubation, resolved. Thrombocytopenia secondary to sepsis. Recommendation: Continue ventilatory support. Continue the vitamin cocktail and COVID-19 cocktail. Continue sedation will try the patient off Nimbex. If possible. Continue both chest tubes to suction, no evidence of air leak noted in the chest tubes today. However considering the patient remains on high PEEP, no plans to remove any of the chest tubes anytime soon Patient received toci and convalescent plasma. Continue GI and DVT prophylaxis. Continue nutritional support. /Enteral feeding. Continue Lovenox. Continue antibiotics /cefepime cultures are pending so far negative. Remains critically ill, critical care time is over 30 minutes. Time with Patient: Greater than 30
[2020-06-23 11:53] LABS: Glucose,Whole Blood 243 mg/dL (75-99)
--- NOTE | 2020-06-23 13:38 | P.PN ---
Subjective Progress Note Date: 06/23/20 HISTORY OF PRESENT ILLNESS This is a 55-year-old male patient of Dr. Maxwell Alexander with significant past medical history. Patient states he started having symptoms on June 01 and was diagnosed with COVID-19 on June 08. Patient symptoms or body aches and fatigue as well as cough with white sputum production, increasing shortness of breath and measured pulse ox at home which worsened. He complains of headache chills and nausea. Patient presented to [facility] emergency center for evaluation. Patient was afebrile, heart rate 101, blood pressure 114/75, pulse ox 86% on room air. WBC 6.4, hemoglobin 16.2, platelet count 153. D-dimer 0.84. AST 106, ALT 44, alkaline phosphatase 57, LDH 2547. CRP 150. Sodium 129, potassium 4.6, chloride 97, CO2 23, BUN 12 and creatinine 0.84. Blood sugar 114. Chest x-ray reveals extensive pulmonary infiltrates related to pneumonia and ARDS. CTA of the chest reveals no pulmonary embolism. Patchy areas of nodular consolidations in the bilateral lower lobes with groundglass consolidation of the peripheral of the bilateral upper lobes consistent with multifocal infection compatible with Covid pneumonia. No pleural effusions or pneumothorax. Patient has been seen by pulmonary medicine is not a candidate f or Remdesivir. Convalescent plasma has been ordered as well as Tocilizumab 1 dose. Patient is currently pulse ox 95% on 15 L nonrebreather. 06/15: Repeat chest x-ray reveals worsening infiltrates. Patient is currently on nonrebreather and nasal cannula with pulse ox of 89%. Patient states that he is not sleeping because of coughing. He continues to have cough, shortness of breath. Noted to be tachypneic. Patient states he is eating okay. Melatonin, Flonase and Tessalon Perles added. Patient has been afebrile, heart rate 87, respiratory rate 32, blood pressure 112/70. Repeat blood work reveals WBC 11.4, hemoglobin 15.4, platelet count 208. D-dimer 0.95. Sodium 136 other electroly jagdeep and renal function normal. Blood sugar 118. AST 96, ALT 67, alkaline phosphatase 70. LDH 2884. C-reactive protein 59.4. 06/16: Patient's pulse ox is 90-92% on high flow nasal cannula at 13 L along with 100% nonrebreather. Patient was seen by Dr. Kern plan is to try and wean off 100% oxygen. Patient states that his breathing is stable today. He continues to have shortness of breath with minimal activity and cough. Patient started on mycelex noemi for thrush. He has been afebrile, heart rate 80, blood pressure 114/69. Repeat chest x-ray reveals improving bilateral lung infiltra jagdeep. Patient is continued on dexamethasone, Lovenox and vitamin supplements. 06/17: Yesterday afternoon, received call the patient had subcutaneous emphysema that was new and stat chest x-ray was ordered. This revealed interval development of subcutaneous emphysema within the bilateral neck. Some pneumo mediastinum may be present as the source. Pneumothorax is identified. This was reviewed by Dr. Kern at the time. Last evening at 2200, A-Team was called for puffiness of the neck and shoulder skin. Repeat chest x-ray revealed prominent interval increase in subcutaneous emphysema pattern. Patient was transferred to the intensive care unit. Patient has been seen in the intensive care unit today. He remains on 15 L high flow nasal cannula in addition to 100% nonrebreather facemask. D-dimer is 17.6, LDH 533. Patient remains on Decadron, Lovenox and supplements. Promethazine was added for cough suppression. Subcutaneous emphysema is stable. 06/18 patient evaluated bedside has worsening subcutaneous emphysema. Does appear anxious on examination. He is on Xanax to 0.25 mg twice a day with no improvement in patient's and slightly. We'll repeat chest x-ray does suggest tiny pneumothorax in addition to subcutaneous emphysema. Patient is currently maintaining oxygen saturation on interval 60 L with FiO2 of 90% with a nonrebreather 100%. Minimum exertion is causing desaturation. Patient appears to have worsening inflammation markers including worsening LDH and liver enzymes. Pulmonary care for management of the Covid. Continues to keep patient on dexamethasone, convalescent plasma. Patient is not a candidate for remdesivir. We will start patient on Lexapro 10 mg daily at bedtime to help with anxiety. IV fluids switch to D5NS as patient is not eating being on mask and is hungry. 06/19 patient evaluated bedside has worsening subcutaneous emphysema, facial swelling and pneumomediastinum. Patient is alert and keeping saturation 90-92% on BiPAP. He appears anxious and is breathing at 26 respiratory rate per minute. Blood pressure 1:30/74 heart rate of 113.chest x-rays consistent with bilateral subcutaneous emphysema and pneumomediastinum any apical pneumothorax dizzy and chest tube at this point. On evaluation patient's labs patient's leukocytosis and 19 sodium stable at 1:30, creatinine 0.67 and ferritin is 3144 elevated liver enzymes early at 7846 increased from prior low albumin. patient continues to have increased in size the despite initiation of Remeron will increase Remeron to 30 mg at bedtime Xanax increased to 0.5 twice a day f rom 0.25. Ativan can be given if patient is unable to tolerate oral medication. Plan to start patient on TPN tomorrow. Low sodium could be a results of D5W 06/20: Repeat blood work reveals WBC 29.6, hemoglobin 17, platelet count 124. D- dimer greater than 35. Sodium 132, potassium 5.4, chloride 95, CO2 31, BUN 28 creatinine 0.75. Blood sugar 162. AST 131, ALT 92, alkaline phosphatase 310. LDH 9901. CK 501. C-reactive protein 3.7. Patient became more hypoxic during the night with pulse ox down to the low 70s with mental status changes. Patient was intubated and placed on mechanical ventilation. Tidal volume 400, FiO2 of 75% and PEEP of 18. He is on propofol, Nimbex, levo fed was started and he is status post 2 L of IV fluid. He has on a fentanyl drip. Patient has extensive subcutaneous emphysema. Remeron and clotrimazole discontinued 06/21: Patient remains intubated and on mechanical ventilation. Tidal volume 400, FiO2 decreased from 85-80% this morning, PEEP 16. Patient had bilateral chest tubes placed for pneumothorax bilaterally. This was done last evening. Patient is currently on Nimbex, fentanyl, levo fed. He is on tube feedings at goal. Temperature max 100.2, heart rate 107, respiratory rate 33, blood pressure 118/62, pulse ox 90% with goal to keep above 85%. Repeat blood work reveals WBC 15.9, hemoglobin 14.6, platelet count 96. Sodium 137, potassium 5.1, chloride 100, CO2 39, BUN 26 and creatinine 0.69. Phosphorus 7.3. Magnesium 3.0. Total bilirubin 0.7, AST 59, ALT 61, alkaline phosphatase 190. D-dimer 14.6. LDH 3891. CK 902. C-reactive protein 4.1. Repeat chest x-ray reveals persistent severe bilateral subcutaneous emphysema limiting assessment. Underlying groundglass changes persist. Bilateral chest tubes. Right apical pneumothorax smaller 6 mm versus 2 cm previously. Left apical pneumothorax no longer seen. Better demonstrated pneumomediastinum though suspected to have decreased compared to prior exam. Patient does have less subcutaneous emphysema. 06/22: he remains intubated and on mechanical ventilation with tidal volume 400, FiO2 was 100% this morning and decrease to 70, PEEP is 20. Patient is on propofol and fentanyl as well as Nimbex and bicarb drip. He is not on norepinephrine. Patient is on tube feedings at goal. He remains with bilateral chest tubes in place, no air leak. He has been afebrile, heart rate 108, respiratory rate 34, a pressure 108/61, pulse ox is 90%. Repeat blood work reveals WBC 20, hemoglobin 13.7. D-dimer 10.74. CO2 42, BUN 31 creatinine 0.63. Blood sugars running between 130s to 177. Repeat chest x-ray reveals stable findings. patient remains intubated with a tidal volume of 400 FiO2 of 65% PEEP 20. Patient continues to remain sedated and paralyzed on propofol, fentanyl Precedex and Pneumovax. Continues to have chest tubes with slight air leaks noted. Pratibha st x-ray continues to remain the same with bilateral patchy infiltrate and subcutaneous emphysema. Vitals this morning suggests tachycardia 120 respiratory rate 34 saturating 90% on 65% FiO2 blood pressure 128/71 labs suggestive leukocytosis of 17.6 hemoglobin 12.9 ABG drawn at this morning suggests a pH of 7.3 pCO2 86 pO2 77 bicarb 50. Patient's LDH is 12,748. CRP 7. . REVIEW OF SYSTEMS Could not be obtained Objective - Vital Signs Vital signs: Vital Signs Temp 98.4 F 06/23/20 12:00 Pulse 121 H 06/23/20 12:00 Resp 34 H 06/23/20 12:00 BP 199/104 06/21/20 17:30 Pulse Ox 90 L 06/23/20 12:00 Intake & Output 06/22/20 06/23/20 06/23/20 18:59 06:59 18:59 Intake Total 4576.409 6371.203 779.393 Output Total 559 670 470 Balance 634.567 647.203 309.393 Weight 72 kg Intake: IV 786 473 326 Cefepime 2 gm In Sodium 200 100 Chloride 0.9% 100 ml @ 25 mls/hr IVPB Q8HR [facility] Rx# :[id number] Dextrose 5% in Water 1, 550 440 205 000 ml @ 25 mls/hr IV . Q24H [facility] with Sodium Bicarb (1 Meq/ml) 150 ml Rx#:[id number] pressure bag 36 33 21 Intake, IV Titration 373.567 584.203 419.393 Amount Cisatracurium 200 mg In 93.98 179.261 Sodium Chloride 0.9% 180 ml @ 1 MCG/KG/MIN 3.81 mls/hr IV .Q24H [facility] Rx#: [id number] Clevidipine Butyrate 25 1.233 56.734 mg In Empty Bag 1 bag @ 1 MG/HR 2 mls/hr IV .Q24H [facility] Rx#:[id number] fentaNYL (PF). 1,000 mcg 79.587 224.154 25.718 In Sodium Chloride 0.9% 80 ml @ Per Protocol IV . Q0M [facility] Rx#:[id number] propofoL 1,000 mg In 200 358.816 157.68 Empty Bag 1 bag @ Titrate IV .Q0M [facility] Rx#: [id number] Tube Feeding 34 170 34 Other 90 Output: Urine 559 670 470 Other: Voiding Method Indwelling Catheter Indwelling Catheter Indwelling Catheter ABP, PAP, CO, CI - Last Documented Arterial Blood Pressure 128/71 - Exam PHYSICAL EXAMINATION Physical exam deferred due to positive Covid 19 and intubation. Gen: This is a 55-year-old male. He is resting in ICU bed appears to be comfortable. No respiratory distress noted. HEENT: Head is atraumatic, normocephalic. NECK: Subcutaneous emphysema. - Labs CBC & Chem 7: 06/23/20 04:27 06/23/20 04:27 Labs: Abnormal Lab Results - Last 24 Hours (Table) 06/22/20 06/22/20 06/23/20 Range/Units 17:55 23:52 04:27 WBC 17.6 H (3.8-10.6) k/uL RBC 4.23 L (4.30-5.90) m/uL Hgb 12.9 L (13.0-17.5) gm/dL Plt Count 129 L (150-450) k/uL Neutrophils # 16.5 H (1.3-7.7) k/uL Lymphocytes # 0.5 L (1.0-4.8) k/uL D-Dimer (<0.60) mg/L FEU ABG pCO2 (35-45) mmHg ABG pO2 (83-108) mmHg ABG HCO3 (21-25) mmol/L ABG Total CO2 (19-24) mmol/L Potassium (3.5-5.1) mmol/L Chloride (98-107) mmol/L Carbon Dioxide (22-30) mmol/L BUN (9-20) mg/dL Creatinine (0.66-1.25) mg/dL Glucose (74-99) mg/dL POC Glucose (mg/dL) 170 H 140 H (75-99) mg/dL Calcium (8.4-10.2) mg/dL Alkaline Phosphatase (38-126) U/L Lactate Dehydrogenase (313-618) U/L Creatine Kinase (55-170) U/L C-Reactive Protein (<1.0) mg/dL Total Protein (6.3-8.2) g/dL Albumin (3.5-5.0) g/dL 06/23/20 06/23/20 06/23/20 Range/Units 04:27 04:27 05:30 WBC (3.8-10.6) k/uL RBC (4.30-5.90) m/uL Hgb (13.0-17.5) gm/dL Plt Count (150-450) k/uL Neutrophils # (1.3-7.7) k/uL Lymphocytes # (1.0-4.8) k/uL D-Dimer 4.66 H (<0.60) mg/L FEU ABG pCO2 86 H* (35-45) mmHg ABG pO2 77 L (83-108) mmHg ABG HCO3 50 H* (21-25) mmol/L ABG Total CO2 52 H (19-24) mmol/L Potassium 5.2 H (3.5-5.1) mmol/L Chloride 94 L (98-107) mmol/L Carbon Dioxide 45 H* (22-30) mmol/L BUN 39 H (9-20) mg/dL Creatinine 0.63 L (0.66-1.25) mg/dL Glucose 138 H (74-99) mg/dL POC Glucose (mg/dL) (75-99) mg/dL Calcium 8.2 L (8.4-10.2) mg/dL Alkaline Phosphatase 174 H (38-126) U/L Lactate Dehydrogenase 2747 H (313-618) U/L Creatine Kinase 178 H (55-170) U/L C-Reactive Protein 7.0 H (<1.0) mg/dL Total Protein 5.1 L (6.3-8.2) g/dL Albumin 2.7 L (3.5-5.0) g/dL 06/23/20 06/23/20 Range/Units 05:53 11:51 WBC (3.8-10.6) k/uL RBC (4.30-5.90) m/uL Hgb (13.0-17.5) gm/dL Plt Count (150-450) k/uL Neutrophils # (1.3-7.7) k/uL Lymphocytes # (1.0-4.8) k/uL D-Dimer (<0.60) mg/L FEU ABG pCO2 (35-45) mmHg ABG pO2 (83-108) mmHg ABG HCO3 (21-25) mmol/L ABG Total CO2 (19-24) mmol/L Potassium (3.5-5.1) mmol/L Chloride (98-107) mmol/L Carbon Dioxide (22-30) mmol/L BUN (9-20) mg/dL Creatinine (0.66-1.25) mg/dL Glucose (74-99) mg/dL POC Glucose (mg/dL) 142 H 243 H (75-99) mg/dL Calcium (8.4-10.2) mg/dL Alkaline Phosphatase (38-126) U/L Lactate Dehydrogenase (313-618) U/L Creatine Kinase (55-170) U/L C-Reactive Protein (<1.0) mg/dL Total Protein (6.3-8.2) g/dL Albumin (3.5-5.0) g/dL Microbiology - Last 24 Hours (Table) 06/21/20 21:50 Gram Stain - Preliminary Sputum Sputum Culture - Preliminary Presumptive Staph aureus Assessment and Plan Plan: ASSESSMENT AND PLAN 1. Acute hypoxic respiratory failure secondary to Covid 19 pneumonia requiring intubation and mechanical ventilation on 06/19. Patient has been seen by pulmonary medicine status post Convalescent plasma and Tocilizumab 1 dose. Continue dexamethasone 6 mg IV every 24 hours, Lovenox 40 mg subcu twice daily, vitamins, cefepime 2 g IV piggyback every 8 hours. Patient is off vasopressors. Continue propofol, fentanyl, Precedex, Nimbex 2. Elevated inflammatory markers secondary to Covid 19. Continue to monitor. Downtrending 3. Mild hyponatremia. Continue IV fluids. 4. Elevated d-dimer. Acute pulmonary embolism has been ruled out by CTA. 5. Lymphocytopenia secondary to Covid 19. 6. Thrush. Neck: Is on hold 7. Subcutaneous emphysema and pneumomediastinum, stable. Status post bilateral chest tube insertion on continuous wall suction with mild air leak on the right chest tube. Monitor for resolution of subcutaneous emphysema 8. Thrombocytopenia secondary to Covid. Continue to monitor. 9. Metabolic acidosis. Patient is on bicarb drip. 10. GI prophylaxis. Protonix daily. 11. DVT prophylaxis. Lovenox. Prognosis is guarded.
[2020-06-23] MEDS ORDERED: CISATRACURIUM 2 MG/ML 5 ML VIAL IV ONE (13:39)
[2020-06-23 17:45] LABS: Glucose,Whole Blood 204 mg/dL (75-99)
[2020-06-23] MEDS: LACTULOSE 20 GM/30 ML CUP PO SCH (20:15)
[2020-06-24 00:07] LABS: Glucose,Whole Blood 143 mg/dL (75-99)
[2020-06-24] MEDS: ARTIFICIAL TEARS-HYPROMELLOSE DROPS 15 ML BTL BOTH EYES SCH ×7 (00:09→23:53)
[2020-06-24] MEDS: INSULIN ASPART (NovoLOG) 100 UNIT/ML VIAL SQ SCH ×5 (00:09→23:53)
[2020-06-24] MEDS: CEFEPIME 2 GM in SODIUM CHLORIDE 0.9% 100 ML IVPB SCH ×4 (00:10→23:53)
[2020-06-24] MEDS: CLEVIDIPINE BUTYRATE 25 MG in EMPTY BAG 1 BAG IV SCH ×6 (01:59→23:54)
[2020-06-24] MEDS: fentaNYL (PF). 1,000 MCG in SODIUM CHLORIDE 0.9% 80 ML IV SCH ×5 (02:28→20:58)
[2020-06-24] MEDS: CISATRACURIUM 200 MG in SODIUM CHLORIDE 0.9% 180 ML IV SCH ×2 (04:22→12:58)
[2020-06-24 04:33] LABS: Basophils # (A) 0.1 k/uL (0-0.2); Basophils % (A) 0 %; Eosinophils # (A) 0.2 k/uL (0-0.7); Eosinophils % (A) 1 %; HCT 41.2 % (39.0-53.0); HGB 13.5 gm/dL (13.0-17.5); Lymphocytes # (A) 0.5 k/uL (1.0-4.8); Lymphocytes % (A) 2 %; MCHC 32.8 g/dL (31.0-37.0); MCV 94.7 fL (80.0-100.0); Mean Platelet Volume 8.5; Monocytes # (A) 0.6 k/uL (0-1.0); Monocytes % (A) 3 %; Neutrophils # (A) 20.3 k/uL (1.3-7.7); Neutrophils % (A) 93 %; Platelet Count 155 k/uL (150-450); RBC 4.36 m/uL (4.30-5.90); WBC 21.7 k/uL (3.8-10.6)
[2020-06-24 04:34] LABS: ALT 105 U/L (4-49); AST 90 U/L (17-59); African American GFR (CKD) >90 (>60 ml/min/1.73 sqM); Alkaline Phosphatase 230 U/L (38-126); Blood Urea Nitrogen 48 mg/dL (9-20); C Reactive Protein 4.7 mg/dL (<1.0); Calcium 8.8 mg/dL (8.4-10.2); Chloride 96 mmol/L (98-107); Creatine Kinase 85 U/L (55-170); Glucose 155 mg/dL (74-99); Non-African American GFR(CKD) >90 (>60 ml/min/1.73 sqM); Potassium 5.4 mmol/L (3.5-5.1); Sodium 141 mmol/L (137-145); Total Bilirubin 0.9 mg/dL (0.2-1.3); Total Protein 5.6 g/dL (6.3-8.2)
[2020-06-24 04:38] LABS: Anion Gap -3 mmol/L
[2020-06-24 04:56] LABS: Carbon Dioxide 48 mmol/L (22-30); LDH 2733 U/L (313-618)
[2020-06-24 05:02] LABS: ABG Base Excess 25.7 mmol/L; ABG Oxygen Saturation 95.8 % (94-97); ABG PH 7.39 (7.35-7.45); ABG PO2 75 mmHg (83-108); ABG TCO2 53 mmol/L (19-24); Allen Test Performed? Yes
[2020-06-24 05:13] LABS: ABG HCO3 51 mmol/L (21-25); ABG PCO2 83 mmHg (35-45)
[2020-06-24 05:49] LABS: Glucose,Whole Blood 145 mg/dL (75-99)
[2020-06-24] MEDS: ACETAMINOPHEN TAB 325 MG TAB PO PRN (05:52)
--- NOTE | 2020-06-24 08:05 | P.PN ---
Subjective Progress Note Date: 06/24/20 Principal diagnosis: Acute COVID-19 pneumonia, pneumomediastinum, extensive subcutaneous emphysema, acute hypoxic respiratory failure, elevated inflammatory markers secondary to Co vid-19, leukocytosis, thrombocytopenia, hypotension post intubation, respiratory acidosis POD #4 placement of bilateral chest tubes by Dr. Dominique The patient remains laying in bed in the intensive care unit, remains intubated, sedated, and paralyzed. Bilateral chest tubes remain in place, no air leaks present in either chest tube, minimal drainage, subcutaneous emphysema remains present. Ventilator changes continued to be made by pulmonology, currently on 65% FiO2 and 20 PEEP. WBC 21.7, platelet 155, D-dimer 3.96, CRP 4.7, LDH 2733. Tmax this morning 101.2F. Suputum culture preliminary positive for presumptive staph, remains on IV cefepime. Objective - Vital Signs Vital signs: Vital Signs Temp 99.9 F H 06/24/20 07:00 Pulse 122 H 06/24/20 07:00 Resp 34 H 06/24/20 07:00 BP 199/104 06/21/20 17:30 Pulse Ox 90 L 06/24/20 07:00 Intake & Output 06/23/20 06/24/20 06/24/20 18:59 06:59 18:59 Intake Total 3534.751 5160.961 45 Output Total 1025 975 60 Balance 573.787 586.961 -15 Weight 76.5 kg Intake: IV 594 408 28 Cefepime 2 gm In Sodium 200 100 Chloride 0.9% 100 ml @ 25 mls/hr IVPB Q8HR [facility] Rx# :[id number] Dextrose 5% in Water 1, 355 275 25 000 ml @ 25 mls/hr IV . Q24H [facility] with Sodium Bicarb (1 Meq/ml) 150 ml Rx#:[id number] pressure bag 39 33 3 Intake, IV Titration 936.787 876.961 Amount Cisatracurium 200 mg In 231.871 81.439 Sodium Chloride 0.9% 180 ml @ 1 MCG/KG/MIN 3.81 mls/hr IV .Q24H [facility] Rx#: [id number] Clevidipine Butyrate 25 152.035 176.533 mg In Empty Bag 1 bag @ 1 MG/HR 2 mls/hr IV .Q24H [facility] Rx#:[id number] fentaNYL (PF). 1,000 mcg 214.301 234.949 In Sodium Chloride 0.9% 80 ml @ Per Protocol IV . Q0M [facility] Rx#:[id number] propofoL 1,000 mg In 338.58 384.04 Empty Bag 1 bag @ Titrate IV .Q0M [facility] Rx#: [id number] Tube Feeding 68 187 17 Other 90 Output: Chest Tube Drainage 80 Chest Tube Left 30 Chest Tube Right 50 Urine 945 975 60 Other: Voiding Method Indwelling Catheter Indwelling Catheter ABP, PAP, CO, CI - Last Documented Arterial Blood Pressure 121/64 - Exam CONSTITUTIONAL: Currently sedated and paralyzed on mechanical ventilation EYES: Subcutaneous emphysema present over both eyes ENT: Moist mucous membranes without oral lesions present NECK: No masses, no bruits, trachea midline RESPIRATORY: Lungs sounds diminished to auscultation bilaterally. Currently on mechanical ventilation, assist control mode, FiO2 65%, PEEP 20, tidal volume 400, respiratory rate 34. ABGs this am on those settings 7.39/83/75/51/95%/BE 25.7. 8.0 ET tube present, 25 at the lip. Subcutaneous emphysema present to the chest, arms, neck, face, about the same as yesterday. CARDIOVASCULAR: S1, S2 present. Tachycardic but regular rate and rhythm, sinus tach on telemetry with heart rate in the 120s. Palpable peripheral pulses bilaterally. SCDs present. GASTROINTESTINAL: Abdomen soft, nontender, nondistended without masses or organomegaly noted. Active bowel sounds present 4 quadrants. OG tube present, tube feeding infusing at 17 ml/hr. GENITOURINARY: Indwelling catheter present draining clear, yellow urine. Urine output 75-100 mL per hour INTEGUMENTARY: Skin is warm and slightly moist NEUROLOGIC: Unable to assess as patient is currently receiving IV paralytic INVASIVE LINES/TUBES: Right PICC line, left radial arterial line present. Right and left pleural chest tubes present, no air leaks present in either chest tube, minimal drainage. - Allied health notes Allied health notes reviewed: nursing - Labs CBC & Chem 7: 06/24/20 04:00 06/24/20 04:00 Labs: Abnormal Lab Results - Last 24 Hours (Table) 04/22/21 04/22/21 04/23/21 Range/Units 11:51 17:43 00:06 WBC (3.8-10.6) k/uL Neutrophils # (1.3-7.7) k/uL Lymphocytes # (1.0-4.8) k/uL D-Dimer (<0.60) mg/L FEU ABG pCO2 (35-45) mmHg ABG pO2 (83-108) mmHg ABG HCO3 (21-25) mmol/L ABG Total CO2 (19-24) mmol/L Potassium (3.5-5.1) mmol/L Chloride (98-107) mmol/L Carbon Dioxide (22-30) mmol/L BUN (9-20) mg/dL Creatinine (0.66-1.25) mg/dL Glucose (74-99) mg/dL POC Glucose (mg/dL) 243 H 204 H 143 H (75-99) mg/dL AST (17-59) U/L ALT (4-49) U/L Alkaline Phosphatase (38-126) U/L Lactate Dehydrogenase (313-618) U/L C-Reactive Protein (<1.0) mg/dL Total Protein (6.3-8.2) g/dL Albumin (3.5-5.0) g/dL 06/24/20 06/24/20 06/24/20 Range/Units 04:00 04:00 04:00 WBC 21.7 H (3.8-10.6) k/uL Neutrophils # 20.3 H (1.3-7.7) k/uL Lymphocytes # 0.5 L (1.0-4.8) k/uL D-Dimer 3.96 H (<0.60) mg/L FEU ABG pCO2 (35-45) mmHg ABG pO2 (83-108) mmHg ABG HCO3 (21-25) mmol/L ABG Total CO2 (19-24) mmol/L Potassium 5.4 H (3.5-5.1) mmol/L Chloride 96 L (98-107) mmol/L Carbon Dioxide 48 H* (22-30) mmol/L BUN 48 H (9-20) mg/dL Creatinine 0.60 L (0.66-1.25) mg/dL Glucose 155 H (74-99) mg/dL POC Glucose (mg/dL) (75-99) mg/dL AST 90 H (17-59) U/L ALT 105 H (4-49) U/L Alkaline Phosphatase 230 H (38-126) U/L Lactate Dehydrogenase 2733 H (313-618) U/L C-Reactive Protein 4.7 H (<1.0) mg/dL Total Protein 5.6 L (6.3-8.2) g/dL Albumin 3.0 L (3.5-5.0) g/dL 06/24/20 06/24/20 Range/Units 04:47 05:47 WBC (3.8-10.6) k/uL Neutrophils # (1.3-7.7) k/uL Lymphocytes # (1.0-4.8) k/uL D-Dimer (<0.60) mg/L FEU ABG pCO2 83 H* (35-45) mmHg ABG pO2 75 L (83-108) mmHg ABG HCO3 51 H* (21-25) mmol/L ABG Total CO2 53 H (19-24) mmol/L Potassium (3.5-5.1) mmol/L Chloride (98-107) mmol/L Carbon Dioxide (22-30) mmol/L BUN (9-20) mg/dL Creatinine (0.66-1.25) mg/dL Glucose (74-99) mg/dL POC Glucose (mg/dL) 145 H (75-99) mg/dL AST (17-59) U/L ALT (4-49) U/L Alkaline Phosphatase (38-126) U/L Lactate Dehydrogenase (313-618) U/L C-Reactive Protein (<1.0) mg/dL Total Protein (6.3-8.2) g/dL Albumin (3.5-5.0) g/dL Microbiology - Last 24 Hours (Table) 06/20/20 16:17 Gram Stain - Final Sputum Sputum Culture - Final 06/21/20 21:50 Gram Stain - Preliminary Sputum Sputum Culture - Preliminary Presumptive Staph aureus - Imaging and Cardiology Chest x-ray: image reviewed Assessment and Plan Assessment: 1. Acute COVID-19 pneumonia 2. Pneumomediastinum, extensive subcutaneous emphysema, S/P placement of right and left pleural chest tubes by pulmonology 3. Acute hypoxic respiratory failure, currently on mechanical ventilation 4. Elevated inflammatory markers secondary to Covid, trending down 5. Leukocytosis, febrile, preliminary sputum culture from 06/21/20 growing presumptive staph 6. Thrombocytopenia, resolved 6. Hypotension post intubation, currently off pressors and hypertensive requiring cleviprex 7. Respiratory acidosis Plan: 1. Continue both chest tubes to continuous wall suction, monitor for resolution of subcutaneous emphysema. No plans to remove chest tube anytime soon 2. Mechanical ventilation, sedation, paralytic, antibiotics, covid managment per auto body repairman 3. No surgery is warranted 4. GI/DVT prophylaxis 5. Will monitor daily CXR 6. Patient remains critically ill with poor prognosis Time with Patient: Greater than 30
--- NOTE | 2020-06-24 08:19 | XR ---
EXAMINATION TYPE: XR chest 1V portable DATE OF EXAM: 06/24/2020 Comparison: 06/23/2020 Clinical History: 55-year-old male Tube placement Findings: ET tube tip at the level of the medial clavicular heads. NG tube courses below the diaphragm. Right P ICC tip at the mid SVC level. Bilateral chest tubes remain. Small right apical pneumothorax measuring 1.2 cm versus 9 mm, previously, not significantly changed. Mild pneumomediastinum redemonstrated. Th e background mid and lower lung consolidation may be slightly improving particularly on the left. Rayo itations due to persistent extensive bilateral subcutaneous emphysema. Impression: 1. Continued limitations due to extensive bilateral subcutaneous emphysema. 2. Bilateral chest tubes. Small right apical pneumothorax currently measuring 1.2 cm versus 9 mm, pre viously. 3. Small amount of pneumomediastinum is similar. 4. Mid and lower lung airspace disease, right greater than left, is beginning to show slight improvem ent.
[2020-06-24] MEDS: CHLORHEXIDINE GLUCONATE 15 ML CUP MUCOUS MEM SCH ×2 (08:21→20:56)
[2020-06-24] MEDS: DEXAMETHASONE SOD PHOSPHATE 10 MG/ML 1 ML VIAL IV SCH (08:21)
[2020-06-24] MEDS: CHOLECALCIFEROL 25 MCG (1000 IU) TABLET PO SCH (08:22)
[2020-06-24] MEDS: ZINC SULFATE 220 MG CAP PO SCH (08:22)
[2020-06-24] MEDS: ASCORBIC ACID 500 MG TAB PO SCH (08:22)
[2020-06-24] MEDS: ENOXAPARIN 40 MG/0.4 ML SYRINGE SQ SCH ×2 (08:23→20:56)
[2020-06-24] MEDS: LACTULOSE 20 GM/30 ML CUP PO SCH ×2 (08:23→20:56)
[2020-06-24] MEDS: PANTOPRAZOLE 40 MG/10 ML VIAL IVP SCH (08:23)
[2020-06-24] MEDS ORDERED: VANCOMYCIN IV PER PHARMACY 1 EACH MISC MISCELLANE PRN (10:25)
[2020-06-24 11:59] LABS: Glucose,Whole Blood 178 mg/dL (75-99)
[2020-06-24] MEDS: VANCOMYCIN 1,500 MG in SODIUM CHLORIDE 0.9% 250 ML IVPB SCH ×2 (12:20→19:10)
--- NOTE | 2020-06-24 12:46 | P.PN ---
Subjective Progress Note Date: 06/24/20 Principal diagnosis: Acute hypoxic failure secondary to COVID-19 pneumonia 06/20/2020, the patient is being seen for a follow-up. The patient is a case of COVID-19 related pneumonia [place] by pneumomediastinum and bilateral subcutaneous emphysema. Overnight, he was kept on a BiPAP and the patient progressively became more hypoxic. He was on a BiPAP pressure of 12/6 with an FiO2 of 100%. I increased him up to 14/10 and later on up to 16/12 and despite that the patient continued to be hypoxic and in fact his pulse ox dropped down to the low 70s and he became more hypoxic and altered and agitated. During the course of his treatment, the patient's anxiety level is going up and he was becoming very much agitated. He was started on Precedex. Ultimately the decision was to intubate the patient put him on a mechanical ventilator. Currently is sedated with a combination of propofol and fentanyl and the patient is also paralyzed with Nimbex. He is on a mechanical ventilator. Patient is currently on propofol at a dose of 75 mcg/kg per minute. The patient is also paralyzed with Nimbex at a dose of 1 mg/kg per minute. He is on a mechanical ventilator currently on assist control mode with a tidal volume 400, rate of 34, FiO2 of 100% and PEEP of 20. Most recent blood gas showed a pH of 7.08 with a pO2 of 101 and pO2 164. The patient was given a total of 4 ampules of sodium bicarbonate regarding his underlying respiratory acidosis to correct his acidosis. The patient has become hypotensive. He received a total of 2 L of IV fluid and currently is on normal saline infusion. Norepinephrine is running at 0.1 mg/kg per minute for blood pressure support. On today's blood work, his white cell count is up to 29 with a hemoglobin of 17. BUN is 28 with a creatinine of 0.7. LFTs are slightly elevated. His chest x-ray post intubation shows no evidence of any pneumothorax. The patient has bilateral saphenous emphysema. ET tube is in a good location. On clinical examination, the patient has extensive subcutaneous emphysema bilaterally on involving his chest and his neck area. Otherwise, feels well sedated for now. Fentanyl was also added to support his sedation. He remains on Decadron at a dose of 6 mg IV every 24 hours. He is also on anticoagulation with Lovenox 40 mg subcu U 12 hours. Follow-up d-dimer today's at 35. Patient was seen by Dr. Kern early this morning, his condition deteriorated, patient required intubation and mechanical ventilation. His ABG after intubation remains very poor. Patient developed worsening subcutaneous emphysema, however his chest x-ray could not rule out a very tiny right apical pneumothorax versus artifact. Continues to have groundglass infiltrates bilaterally. Because of his worsening subcutaneous emphysema, thoracic surgery was consulted. ABG post intubation showed a pO2 of 137 pCO2 of 87 pH of 7.18. Patient has significantly elevated WBC count of 29.6. Hemoglobin is 17. Elect ra lites are normal except for potassium of 5.4. Renal profile is normal. His inflammatory markers are worse with LDH of almost 10,000. And C-reactive protein is 501. Obviously the patient is taking a downhill course, and he is clinically deteriorating. He is now on assist control rate of 34 tidal volume is 400 FiO2 is 75% PEEP of 18 peak airway pressure is 35 and plateau pressure is 32. Fluids-rodriguez he is on IV fluid at KVO, propofol at 75 fentanyl 2 Nimbex at one and norepinephrine at 0.2. Patient was reevaluated today on 06/21/2020, patient remains intubated and mechanically ventilated. Patient is on assist control rate of 34, tidal volume is 400 FiO2 is 100% PEEP of 16. ABG showed a pO2 of 77 pCO2 of 78 pH of 7.31. WBC count is 15.9 hemoglobin is 14.6, d-dimer is down to 14.68, it was 35 yesterday patient had bilateral chest tube placement yesterday, chest x-ray showed improvement, hardly any pneumothorax is noted, subcutaneous emphysema seems to be less. Electro lites are normal renal profile is normal LDH is 3891 C-reactive protein is 4.1 CPK is 902. WBC count is 15.9 hemoglobin is 14.6. Peak airway pressure is 35 static pressures 29. Patient remains on norepineph rine, fentanyl, propofol 75 Nimbex, and he is still receiving sodium bicarb drip. Based on his ABG, I will cut it down. I was able to cut down his FiO2 down to 80%, kept him on a PEEP of 16, and my plan is to eventually taper down his FiO2 and tapered down his speech. Patient remains on enteral feeding using Nepro 17/17. Chest x-ray continues to show bilateral patchy opacities, and subcutaneous emphysema. Improved chest x-ray compared to yesterday. Less subcutaneous emphysema, and less pulmonary opacities noted. Patient was reevaluated today on 06/22/2020, remains in the ICU, intubated and mechanically ventilated. He is on assist control rate of 34 tidal volume is 400 FiO2 is 100% PEEP is 20. ABG showed a pO2 of 95 pCO2 of 86 pH of 7.33, hence I cut down the FiO2 down to 70% and kept the same vent settings. Patient had peak airway pressure of 40 static pressure of 24. Remains on propofol at 75., fentanyl, at 2, Nimbex at 2 and bicarb at 75 mL per hour. Patient remains sedated and paralyzed, I cut down his bicarb drip because of his improving acidosis. Patient continues to have bilateral chest tubes, no air leak in either chest tube. Remains on enteral feeding/Nepro 17/17. Patient is in sinus rhythm, a bit tachycardic at 108, hemodynamically stable, not requiring any pressors. WBC count is 20.3 hemoglobin is 15.7. Electro lites are normal. Renal profile is normal. LDH is 3346 and CPK is 365 C-reactive protein is 4.1. The LDH seems to be trending down, it was as high as almost 10,000. Chest x-ray is showing basically no change, bilateral chest tubes remain in place, no evidence of pneumothorax on either side, there is subcutaneous emphysema but seems to be improving. Diffuse airspace infiltrates persist, unchanged. Patient was reevaluated today on 06/23/2020, remains intubated and mechanically ventilated. Remains in the ICU, sedated and paralyzed. He is on assist control rate of 34, tidal volume is 400 FiO2 is 65 and PEEP is 20. ABG showed a pO2 of 77 pCO2 of 86 pH of 7.37. Patient remains on propofol at 75, fentanyl S3, pleasant Pleurx at 8 mg per hour, Nimbex at 2. Plan to give the patient a trial of Nimbex holiday today if possible. Remains on Nepro 17/17. Chest x-ray is basically the same, continues to show bilateral patchy infiltrates and subcutaneous emphysema. Patient is hemodynamically stable, not requiring any pressors, however he is a bit tachycardic rate is 120. Both sided chest tubes are about the same, and no leaks noted. Basic metabolic profile is normal, bicarb is 45. Patient remains on bicarb drip. D-dimer is 4.66. WBC count is 17.6 hemoglobin is 12.9. LDH remains high at 2747, C-reactive protein is 7 and CPK is 178. Patient was reevaluated today on 06/24/20, remains in the ICU, intubated and mechanically ventilated, sedated and paralyzed. He is on assist control rate of 34 tidal volume is 400 FiO2 of 65% and PEEP remains at 20. Peak airway pressure is about 39 and plateau pressure is 35. ABG showed a pO2 of 75 pCO2 83 pH of 7.39. Hence I decreased the FiO2 down to 60% kept him on the same PEEP/20. Patient remains on propofol at 75 Nimbex at 2 fentanyl S3, proximal at 5 mg per hour and he is also on a bicarb drip which I have discontinued today considering his ABG is showing metabolic compensation significant to his respiratory acidosis. Chest x-ray continues to show bilateral subcutaneous emphysema, improved, and bilateral patchy infiltrates I believe a bit better. Chest tubes remain in place, minimal air leak noted in the right-sided chest tube. No air leak noted in the left sided chest tube. Patient remains on enteral feeding, he is receiving Nepro . WBC count today is 21.7. D-dimer is 3.96. Electrolytes are normal bicarb is 48 BUN is 48 creatinine 0.60. LDH remains high at 2733 however it was as high as 10,002 days ago. C-reactive protein is down to 4.7. Objective - Vital Signs Vital signs: Vital Signs Temp 98.5 F 06/24/20 08:00 Pulse 122 H 06/24/20 11:00 Resp 34 H 06/24/20 11:00 BP 140/72 06/24/20 09:00 Pulse Ox 91 L 06/24/20 11:00 Intake & Output 06/23/20 06/24/20 06/24/20 18:59 06:59 18:59 Intake Total 8886.827 2809.961 1022.488 Output Total 1025 975 630 Balance 573.787 586.961 392.488 Weight 76.5 kg 76.5 kg Intake: IV 594 408 510 Cefepime 2 gm In Sodium 200 100 100 Chloride 0.9% 100 ml @ 25 mls/hr IVPB Q8HR [facility] Rx# :[id number] Dextrose 5% in Water 1, 355 275 125 000 ml @ 25 mls/hr IV . Q24H [facility]YDA with Sodium Bicarb (1 Meq/ml) 150 ml Rx#:[id number] Vancomycin 1,500 mg In 250 Sodium Chloride 0.9% 250 ml @ 125 mls/hr IVPB Q8H [facility] Rx#:[id number] pressure bag 39 33 35 Intake, IV Titration 936.787 876.961 340.488 Amount Cisatracurium 200 mg In 231.871 81.439 Sodium Chloride 0.9% 180 ml @ 1 MCG/KG/MIN 3.81 mls/hr IV .Q24H [facility] Rx#: [id number] Clevidipine Butyrate 25 152.035 176.533 50 mg In Empty Bag 1 bag @ 1 MG/HR 2 mls/hr IV .Q24H [facility] Rx#:[id number] fentaNYL (PF). 1,000 mcg 214.301 234.949 90.488 In Sodium Chloride 0.9% 80 ml @ Per Protocol IV . Q0M [facility] Rx#:[id number] propofoL 1,000 mg In 338.58 384.04 200 Empty Bag 1 bag @ Titrate IV .Q0M [facility] Rx#: [id number] Tube Feeding 68 187 112 Other 90 60 Output: Chest Tube Drainage 80 100 Chest Tube Left 30 25 Chest Tube Right 50 75 Urine 945 975 530 Other: Voiding Method Indwelling Catheter Indwelling Catheter Indwelling Catheter ABP, PAP, CO, CI - Last Documented Arterial Blood Pressure 125/67 - Exam Gen.: basically unchanged, patient is paralyzed and sedated. HEENT: PERRLA, EOMI, nonicteric. Periorbital swelling remains about the same. Endotracheal tube and orogastric tubes are intact. Chest: Crackles and rhonchi bilaterally. Significant subcutaneous emphysema n oted anteriorly and crepitation noted. Bilateral chest tubes are noted to be intact. SubCutaneous emphysema and the chest persists. Cardiac exam: Normal S1 and S2, no gallops. Abdomen: Soft nontender no megaly no rebound. Extremities: No clubbing edema or cyanosis. Skin: No rashes. Neurologic: patient is sedated and paralyzed. Eye: Could not assess. Musculoskeletal: No deformities, patient is paralyzed, could not assess range of motion. Lymphatics: No lymphadenopathy. - Labs CBC & Chem 7: 06/24/20 04:00 06/24/20 04:00 Labs: Abnormal Lab Results - Last 24 Hours (Table) 06/23/20 06/24/20 06/24/20 Range/Units 17:43 00:06 04:00 WBC 21.7 H (3.8-10.6) k/uL Neutrophils # 20.3 H (1.3-7.7) k/uL Lymphocytes # 0.5 L (1.0-4.8) k/uL D-Dimer (<0.60) mg/L FEU ABG pCO2 (35-45) mmHg ABG pO2 (83-108) mmHg ABG HCO3 (21-25) mmol/L ABG Total CO2 (19-24) mmol/L Potassium (3.5-5.1) mmol/L Chloride (98-107) mmol/L Carbon Dioxide (22-30) mmol/L BUN (9-20) mg/dL Creatinine (0.66-1.25) mg/dL Glucose (74-99) mg/dL POC Glucose (mg/dL) 204 H 143 H (75-99) mg/dL AST (17-59) U/L ALT (4-49) U/L Alkaline Phosphatase (38-126) U/L Lactate Dehydrogenase (313-618) U/L C-Reactive Protein (<1.0) mg/dL Total Protein (6.3-8.2) g/dL Albumin (3.5-5.0) g/dL 06/24/20 06/24/20 06/24/20 Range/Units 04:00 04:00 04:47 WBC (3.8-10.6) k/uL Neutrophils # (1.3-7.7) k/uL Lymphocytes # (1.0-4.8) k/uL D-Dimer 3.96 H (<0.60) mg/L FEU ABG pCO2 83 H* (35-45) mmHg ABG pO2 75 L (83-108) mmHg ABG HCO3 51 H* (21-25) mmol/L ABG Total CO2 53 H (19-24) mmol/L Potassium 5.4 H (3.5-5.1) mmol/L Chloride 96 L (98-107) mmol/L Carbon Dioxide 48 H* (22-30) mmol/L BUN 48 H (9-20) mg/dL Creatinine 0.60 L (0.66-1.25) mg/dL Glucose 155 H (74-99) mg/dL POC Glucose (mg/dL) (75-99) mg/dL AST 90 H (17-59) U/L ALT 105 H (4-49) U/L Alkaline Phosphatase 230 H (38-126) U/L Lactate Dehydrogenase 2733 H (313-618) U/L C-Reactive Protein 4.7 H (<1.0) mg/dL Total Protein 5.6 L (6.3-8.2) g/dL Albumin 3.0 L (3.5-5.0) g/dL 06/24/20 06/24/20 Range/Units 05:47 11:56 WBC (3.8-10.6) k/uL Neutrophils # (1.3-7.7) k/uL Lymphocytes # (1.0-4.8) k/uL D-Dimer (<0.60) mg/L FEU ABG pCO2 (35-45) mmHg ABG pO2 (83-108) mmHg ABG HCO3 (21-25) mmol/L ABG Total CO2 (19-24) mmol/L Potassium (3.5-5.1) mmol/L Chloride (98-107) mmol/L Carbon Dioxide (22-30) mmol/L BUN (9-20) mg/dL Creatinine (0.66-1.25) mg/dL Glucose (74-99) mg/dL POC Glucose (mg/dL) 145 H 178 H (75-99) mg/dL AST (17-59) U/L ALT (4-49) U/L Alkaline Phosphatase (38-126) U/L Lactate Dehydrogenase (313-618) U/L C-Reactive Protein (<1.0) mg/dL Total Protein (6.3-8.2) g/dL Albumin (3.5-5.0) g/dL Microbiology - Last 24 Hours (Table) 06/21/20 21:50 Gram Stain - Preliminary Sputum Sputum Culture - Preliminary Presumptive Staph aureus Moraxella(branhamella) catarra 06/20/20 16:17 Gram Stain - Final Sputum Sputum Culture - Final Assessment and Plan Assessment: Impression: Acute hypoxic respiratory failure secondary to COVID-19 pneumonia Acute barotrauma from mechanical ventilation and relatively high PEEP. Requiring chest tube placement on left and right side. Acute leukocytosis, suspect underlying secondary bacterial infection. Sputum cultures are positive for Moraxella catarrhalis, and presumptive staph aureus. Patient is on cefepime, will add vancomycin until the final report comes back on the presumptive staph aureus. Elevated inflammatory markers improving based on the labs today. Hypotension post intubation, resolved. Thrombocytopenia secondary to sepsis. Recommendation: Continue ventilatory support. Continue the vitamin cocktail and COVID-19 cocktail. Continue sedatives and paralytics for now. Continue both chest tubes to suction Patient received toci and convalescent plasma. Continue GI and DVT prophylaxis. Continue nutritional support. /Enteral feeding. Continue Lovenox. Continue antibiotics , patient is now on cefepime and I will add vancomycin, pharmacy to hissputumcultures. Patient continues to have poor prognosis considering all the findings above. Remains critically ill, critical care time is over 30 minutes. Time with Patient: Greater than 30
[2020-06-24] MEDS ORDERED: SODIUM POLYSTYRENE SULFONATE 15 GM/60 ML BOTTLE PO STA (14:44)
--- NOTE | 2020-06-24 14:47 | P.PN ---
Subjective Progress Note Date: 06/24/20 HISTORY OF PRESENT ILLNESS This is a 55-year-old male patient of Dr. Maxwell Alexander with significant past medical history. Patient states he started having symptoms on June 01 and was diagnosed with COVID-19 on June 08. Patient symptoms or body aches and fatigue as well as cough with white sputum production, increasing shortness of breath and measured pulse ox at home which worsened. He complains of headache chills and nausea. Patient presented to [facility] emergency center for evaluation. Patient was afebrile, heart rate 101, blood pressure 114/75, pulse ox 86% on room air. WBC 6.4, hemoglobin 16.2, platelet count 153. D-dimer 0.84. AST 106, ALT 44, alkaline phosphatase 57, LDH 2547. CRP 150. Sodium 129, potassium 4.6, chloride 97, CO2 23, BUN 12 and creatinine 0.84. Blood sugar 114. Chest x-ray reveals extensive pulmonary infiltrates related to pneumonia and ARDS. CTA of the chest reveals no pulmonary embolism. Patchy areas of nodular consolidations in the bilateral lower lobes with groundglass consolidation of the peripheral of the bilateral upper lobes consistent with multifocal infection compatible with Covid pneumonia. No pleural effusions or pneumothorax. Patient has been seen by pulmonary medicine is not a candidate f or Remdesivir. Convalescent plasma has been ordered as well as Tocilizumab 1 dose. Patient is currently pulse ox 95% on 15 L nonrebreather. 06/15: Repeat chest x-ray reveals worsening infiltrates. Patient is currently on nonrebreather and nasal cannula with pulse ox of 89%. Patient states that he is not sleeping because of coughing. He continues to have cough, shortness of breath. Noted to be tachypneic. Patient states he is eating okay. Melatonin, Flonase and Tessalon Perles added. Patient has been afebrile, heart rate 87, respiratory rate 32, blood pressure 112/70. Repeat blood work reveals WBC 11.4, hemoglobin 15.4, platelet count 208. D-dimer 0.95. Sodium 136 other electroly jagdeep and renal function normal. Blood sugar 118. AST 96, ALT 67, alkaline phosphatase 70. LDH 2884. C-reactive protein 59.4. 06/16: Patient's pulse ox is 90-92% on high flow nasal cannula at 13 L along with 100% nonrebreather. Patient was seen by Dr. Kern plan is to try and wean off 100% oxygen. Patient states that his breathing is stable today. He continues to have shortness of breath with minimal activity and cough. Patient started on mycelex noemi for thrush. He has been afebrile, heart rate 80, blood pressure 114/69. Repeat chest x-ray reveals improving bilateral lung infiltra jagdeep. Patient is continued on dexamethasone, Lovenox and vitamin supplements. 06/17: Yesterday afternoon, received call the patient had subcutaneous emphysema that was new and stat chest x-ray was ordered. This revealed interval development of subcutaneous emphysema within the bilateral neck. Some pneumo mediastinum may be present as the source. Pneumothorax is identified. This was reviewed by Dr. Kern at the time. Last evening at 2200, A-Team was called for puffiness of the neck and shoulder skin. Repeat chest x-ray revealed prominent interval increase in subcutaneous emphysema pattern. Patient was transferred to the intensive care unit. Patient has been seen in the intensive care unit today. He remains on 15 L high flow nasal cannula in addition to 100% nonrebreather facemask. D-dimer is 17.6, LDH 533. Patient remains on Decadron, Lovenox and supplements. Promethazine was added for cough suppression. Subcutaneous emphysema is stable. 06/18 patient evaluated bedside has worsening subcutaneous emphysema. Does appear anxious on examination. He is on Xanax to 0.25 mg twice a day with no improvement in patient's and slightly. We'll repeat chest x-ray does suggest tiny pneumothorax in addition to subcutaneous emphysema. Patient is currently maintaining oxygen saturation on interval 60 L with FiO2 of 90% with a nonrebreather 100%. Minimum exertion is causing desaturation. Patient appears to have worsening inflammation markers including worsening LDH and liver enzymes. Pulmonary care for management of the Covid. Continues to keep patient on dexamethasone, convalescent plasma. Patient is not a candidate for remdesivir. We will start patient on Lexapro 10 mg daily at bedtime to help with anxiety. IV fluids switch to D5NS as patient is not eating being on mask and is hungry. 06/19 patient evaluated bedside has worsening subcutaneous emphysema, facial swelling and pneumomediastinum. Patient is alert and keeping saturation 90-92% on BiPAP. He appears anxious and is breathing at 26 respiratory rate per minute. Blood pressure 1:30/74 heart rate of 113.chest x-rays consistent with bilateral subcutaneous emphysema and pneumomediastinum any apical pneumothorax dizzy and chest tube at this point. On evaluation patient's labs patient's leukocytosis and 19 sodium stable at 1:30, creatinine 0.67 and ferritin is 3144 elevated liver enzymes early at 7846 increased from prior low albumin. patient continues to have increased in size the despite initiation of Remeron will increase Remeron to 30 mg at bedtime Xanax increased to 0.5 twice a day f rom 0.25. Ativan can be given if patient is unable to tolerate oral medication. Plan to start patient on TPN tomorrow. Low sodium could be a results of D5W 06/20: Repeat blood work reveals WBC 29.6, hemoglobin 17, platelet count 124. D- dimer greater than 35. Sodium 132, potassium 5.4, chloride 95, CO2 31, BUN 28 creatinine 0.75. Blood sugar 162. AST 131, ALT 92, alkaline phosphatase 310. LDH 9901. CK 501. C-reactive protein 3.7. Patient became more hypoxic during the night with pulse ox down to the low 70s with mental status changes. Patient was intubated and placed on mechanical ventilation. Tidal volume 400, FiO2 of 75% and PEEP of 18. He is on propofol, Nimbex, levo fed was started and he is status post 2 L of IV fluid. He has on a fentanyl drip. Patient has extensive subcutaneous emphysema. Remeron and clotrimazole discontinued 06/21: Patient remains intubated and on mechanical ventilation. Tidal volume 400, FiO2 decreased from 85-80% this morning, PEEP 16. Patient had bilateral chest tubes placed for pneumothorax bilaterally. This was done last evening. Patient is currently on Nimbex, fentanyl, levo fed. He is on tube feedings at goal. Temperature max 100.2, heart rate 107, respiratory rate 33, blood pressure 118/62, pulse ox 90% with goal to keep above 85%. Repeat blood work reveals WBC 15.9, hemoglobin 14.6, platelet count 96. Sodium 137, potassium 5.1, chloride 100, CO2 39, BUN 26 and creatinine 0.69. Phosphorus 7.3. Magnesium 3.0. Total bilirubin 0.7, AST 59, ALT 61, alkaline phosphatase 190. D-dimer 14.6. LDH 3891. CK 902. C-reactive protein 4.1. Repeat chest x-ray reveals persistent severe bilateral subcutaneous emphysema limiting assessment. Underlying groundglass changes persist. Bilateral chest tubes. Right apical pneumothorax smaller 6 mm versus 2 cm previously. Left apical pneumothorax no longer seen. Better demonstrated pneumomediastinum though suspected to have decreased compared to prior exam. Patient does have less subcutaneous emphysema. 06/22: he remains intubated and on mechanical ventilation with tidal volume 400, FiO2 was 100% this morning and decrease to 70, PEEP is 20. Patient is on propofol and fentanyl as well as Nimbex and bicarb drip. He is not on norepinephrine. Patient is on tube feedings at goal. He remains with bilateral chest tubes in place, no air leak. He has been afebrile, heart rate 108, respiratory rate 34, a pressure 108/61, pulse ox is 90%. Repeat blood work reveals WBC 20, hemoglobin 13.7. D-dimer 10.74. CO2 42, BUN 31 creatinine 0.63. Blood sugars running between 130s to 177. Repeat chest x-ray reveals stable findings. patient remains intubated with a tidal volume of 400 FiO2 of 65% PEEP 20. Patient continues to remain sedated and paralyzed on propofol, fentanyl Precedex and Pneumovax. Continues to have chest tubes with slight air leaks noted. Pratibha st x-ray continues to remain the same with bilateral patchy infiltrate and subcutaneous emphysema. Vitals this morning suggests tachycardia 120 respiratory rate 34 saturating 90% on 65% FiO2 blood pressure 128/71 labs suggestive leukocytosis of 17.6 hemoglobin 12.9 ABG drawn at this morning suggests a pH of 7.3 pCO2 86 pO2 77 bicarb 50. Patient's LDH is 12,748. CRP 7. . 06/24 patient remains intubated and mechanically ventilated sedated and paralyzed on assist control with a tidal volume of 400 FiO2 60% PEEP on 20 respiratory rate of 14. ABG done this morning suggests a pO2 of 75 pCO2 83. 7.39. Patient continues to remain on propofol and Pneumovax and fentanyl. The bicarb drip discontinued. 10 chest x-ray shows bilateral subcutaneous emphysema with bilateral patchy infiltrates. Concern for small right apical pneumothorax measuring 1.2 cm versus 9 mm previously. Patient continues to have bilateral chest tubes, minimally leak noted in the right-sided chest tube. No air leak on the left-sided chest tube. Patient remains on enteral feeding. In assessment of patient's blood work slight improvement in CRP noted at 4.7H improved to 2733 liver enzymes continue to rise with AST of 90 ALT 105 alkaline phosphatase 2:30. Bicarb increased to 48. Bicarb drip discontinued. Potassium is noted to be high. One dose of Kayexalate ordered REVIEW OF SYSTEMS Could not be obtained Objective - Vital Signs Vital signs: Vital Signs Temp 99.4 F 06/24/20 12:00 Pulse 118 H 06/24/20 14:00 Resp 34 H 06/24/20 14:00 BP 136/81 06/24/20 14:00 Pulse Ox 88 L 06/24/20 14:00 Intake & Output 06/23/20 06/24/20 06/24/20 18:59 06:59 18:59 Intake Total 4888.562 2042.961 1305.523 Output Total 1025 975 830 Balance 573.787 586.961 475.523 Weight 76.5 kg 76.5 kg Intake: IV 594 408 559 0.9 60 Cefepime 2 gm In Sodium 200 100 100 Chloride 0.9% 100 ml @ 25 mls/hr IVPB Q8HR [facility] Rx# :[id number] Dextrose 5% in Water 1, 355 275 125 000 ml @ 25 mls/hr IV . Q24H [facility] with Sodium Bicarb (1 Meq/ml) 150 ml Rx#:[id number] Vancomycin 1,500 mg In 250 Sodium Chloride 0.9% 250 ml @ 125 mls/hr IVPB Q8H [facility] Rx#:[id number] pressure bag 39 33 24 Intake, IV Titration 936.787 876.961 520.523 Amount Cisatracurium 200 mg In 231.871 81.439 51.943 Sodium Chloride 0.9% 180 ml @ 1 MCG/KG/MIN 3.81 mls/hr IV .Q24H [facility] Rx#: [id number] Clevidipine Butyrate 25 152.035 176.533 78.833 mg In Empty Bag 1 bag @ 1 MG/HR 2 mls/hr IV .Q24H [facility] Rx#:[id number] fentaNYL (PF). 1,000 mcg 214.301 234.949 90.488 In Sodium Chloride 0.9% 80 ml @ Per Protocol IV . Q0M [facility] Rx#:[id number] propofoL 1,000 mg In 338.58 384.04 299.259 Empty Bag 1 bag @ Titrate IV .Q0M [facility] Rx#: [id number] Tube Feeding 68 187 166 Other 90 60 Output: Chest Tube Drainage 80 100 Chest Tube Left 30 25 Chest Tube Right 50 75 Urine 945 975 730 Other: Voiding Method Indwelling Catheter Indwelling Catheter Indwelling Catheter ABP, PAP, CO, CI - Last Documented Arterial Blood Pressure 121/65 - Exam PHYSICAL EXAMINATION Physical exam deferred due to positive Covid 19 and intubation. Gen: This is a 55-year-old male. He is resting in ICU bed appears to be comfortable. Facial swelling noted. No respiratory distress noted. HEENT: Head is atraumatic, normocephalic. NECK: Subcutaneous emphysema. chest : Chest tube noted with minimal air leak noted on the right chest tube no air leak noted on the left chest tube - Labs CBC & Chem 7: 06/24/20 04:00 06/24/20 04:00 Labs: Abnormal Lab Results - Last 24 Hours (Table) 06/23/20 06/24/20 06/24/20 Range/Units 17:43 00:06 04:00 WBC 21.7 H (3.8-10.6) k/uL Neutrophils # 20.3 H (1.3-7.7) k/uL Lymphocytes # 0.5 L (1.0-4.8) k/uL D-Dimer (<0.60) mg/L FEU ABG pCO2 (35-45) mmHg ABG pO2 (83-108) mmHg ABG HCO3 (21-25) mmol/L ABG Total CO2 (19-24) mmol/L Potassium (3.5-5.1) mmol/L Chloride (98-107) mmol/L Carbon Dioxide (22-30) mmol/L BUN (9-20) mg/dL Creatinine (0.66-1.25) mg/dL Glucose (74-99) mg/dL POC Glucose (mg/dL) 204 H 143 H (75-99) mg/dL AST (17-59) U/L ALT (4-49) U/L Alkaline Phosphatase (38-126) U/L Lactate Dehydrogenase (313-618) U/L C-Reactive Protein (<1.0) mg/dL Total Protein (6.3-8.2) g/dL Albumin (3.5-5.0) g/dL 06/24/20 06/24/20 06/24/20 Range/Units 04:00 04:00 04:47 WBC (3.8-10.6) k/uL Neutrophils # (1.3-7.7) k/uL Lymphocytes # (1.0-4.8) k/uL D-Dimer 3.96 H (<0.60) mg/L FEU ABG pCO2 83 H* (35-45) mmHg ABG pO2 75 L (83-108) mmHg ABG HCO3 51 H* (21-25) mmol/L ABG Total CO2 53 H (19-24) mmol/L Potassium 5.4 H (3.5-5.1) mmol/L Chloride 96 L (98-107) mmol/L Carbon Dioxide 48 H* (22-30) mmol/L BUN 48 H (9-20) mg/dL Creatinine 0.60 L (0.66-1.25) mg/dL Glucose 155 H (74-99) mg/dL POC Glucose (mg/dL) (75-99) mg/dL AST 90 H (17-59) U/L ALT 105 H (4-49) U/L Alkaline Phosphatase 230 H (38-126) U/L Lactate Dehydrogenase 2733 H (313-618) U/L C-Reactive Protein 4.7 H (<1.0) mg/dL Total Protein 5.6 L (6.3-8.2) g/dL Albumin 3.0 L (3.5-5.0) g/dL 06/24/20 06/24/20 Range/Units 05:47 11:56 WBC (3.8-10.6) k/uL Neutrophils # (1.3-7.7) k/uL Lymphocytes # (1.0-4.8) k/uL D-Dimer (<0.60) mg/L FEU ABG pCO2 (35-45) mmHg ABG pO2 (83-108) mmHg ABG HCO3 (21-25) mmol/L ABG Total CO2 (19-24) mmol/L Potassium (3.5-5.1) mmol/L Chloride (98-107) mmol/L Carbon Dioxide (22-30) mmol/L BUN (9-20) mg/dL Creatinine (0.66-1.25) mg/dL Glucose (74-99) mg/dL POC Glucose (mg/dL) 145 H 178 H (75-99) mg/dL AST (17-59) U/L ALT (4-49) U/L Alkaline Phosphatase (38-126) U/L Lactate Dehydrogenase (313-618) U/L C-Reactive Protein (<1.0) mg/dL Total Protein (6.3-8.2) g/dL Albumin (3.5-5.0) g/dL Microbiology - Last 24 Hours (Table) 06/21/20 21:50 Gram Stain - Preliminary Sputum Sputum Culture - Preliminary Presumptive Staph aureus Moraxella(branhamella) catarra 06/20/20 16:17 Gram Stain - Final Sputum Sputum Culture - Final Assessment and Plan Plan: ASSESSMENT AND PLAN 1. Acute hypoxic respiratory failure secondary to Covid 19 pneumonia requiring intubation and mechanical ventilation on 06/19. Patient has been seen by pulmonary medicine status post Convalescent plasma and Tocilizumab 1 dose. Continue dexamethasone 6 mg IV every 24 hours, Lovenox 40 mg subcu twice daily, vitamins, cefepime 2 g IV piggyback every 8 hours. Patient is off vasopressors. Continue propofol, fentanyl, Precedex, Nimbex 2. Elevated inflammatory markers secondary to Covid 19. Continue to monitor. Downtrending 3. Mild hyponatremia. Continue IV fluids. 4. Elevated d-dimer. Acute pulmonary embolism has been ruled out by CTA. 5. Lymphocytopenia secondary to Covid 19. 6. Thrush. Neck: Is on hold 7. Subcutaneous emphysema and pneumomediastinum, stable WITH small PNEUMO THORAX Status post bilateral chest tube insertion on continuous wall suction with mild air leak on the right chest tube. Monitor for resolution of subcutaneous emphysema 8. Thrombocytopenia secondary to Covid. Continue to monitor. 9. Metabolic acidosis. Currently have metabolic alkalosis bicarb drip held 10. GI prophylaxis. Protonix daily. 11. DVT prophylaxis. Lovenox. 12 Hyperkalemia - 1 dose of Kayexalate given Prognosis is guarded.
[2020-06-24 17:59] LABS: Glucose,Whole Blood 170 mg/dL (75-99)
[2020-06-24] MEDS ORDERED: SODIUM BICARB 8.4% 50 ML SYR (1 MEQ/ML) IV STA (19:09)
[2020-06-24] MEDS ORDERED: CALCIUM GLUCONATE 1 GM in SODIUM CHLORIDE 0.9% 100 ML IVPB ONE (19:30)
[2020-06-24] MEDS: DEXTROSE 5% IN WATER 1,000 ML with SODIUM BICARB (1 MEQ/ML) 150 ML IV SCH ×2 (19:34→21:47)
[2020-06-24 23:51] LABS: Glucose,Whole Blood 155 mg/dL (75-99)
[2020-06-25] MEDS: fentaNYL (PF). 1,000 MCG in SODIUM CHLORIDE 0.9% 80 ML IV SCH ×5 (01:45→20:04)
[2020-06-25] MEDS: VANCOMYCIN 1,500 MG in SODIUM CHLORIDE 0.9% 250 ML IVPB SCH ×2 (03:22→12:08)
[2020-06-25] MEDS: ARTIFICIAL TEARS-HYPROMELLOSE DROPS 15 ML BTL BOTH EYES SCH ×5 (03:23→20:05)
[2020-06-25 04:39] LABS: ALT 87 U/L (4-49); AST 55 U/L (17-59); African American GFR (CKD) >90 (>60 ml/min/1.73 sqM); Albumin 2.8 g/dL (3.5-5.0); Alkaline Phosphatase 214 U/L (38-126); Blood Urea Nitrogen 48 mg/dL (9-20); C Reactive Protein 4.9 mg/dL (<1.0); Calcium 8.6 mg/dL (8.4-10.2); Chloride 98 mmol/L (98-107); Glucose 146 mg/dL (74-99); Non-African American GFR(CKD) >90 (>60 ml/min/1.73 sqM); Potassium 5.1 mmol/L (3.5-5.1); Sodium 145 mmol/L (137-145); Total Bilirubin 0.6 mg/dL (0.2-1.3); Total Protein 5.3 g/dL (6.3-8.2)
[2020-06-25 04:45] LABS: Anion Gap -5 mmol/L
[2020-06-25 04:48] LABS: Basophils # (A) 0.1 k/uL (0-0.2); Basophils % (A) 1 %; Eosinophils # (A) 0.3 k/uL (0-0.7); Eosinophils % (A) 2 %; HCT 37.3 % (39.0-53.0); HGB 12.1 gm/dL (13.0-17.5); Lymphocytes # (A) 0.8 k/uL (1.0-4.8); Lymphocytes % (A) 5 %; MCHC 32.4 g/dL (31.0-37.0); MCV 95.7 fL (80.0-100.0); Monocytes # (A) 0.4 k/uL (0-1.0); Monocytes % (A) 3 %; Neutrophils # (A) 14.7 k/uL (1.3-7.7); Neutrophils % (A) 89 %; Platelet Count 159 k/uL (150-450); RDW 14.3 % (11.5-15.5); WBC 16.4 k/uL (3.8-10.6)
[2020-06-25 04:49] LABS: Carbon Dioxide 52 mmol/L (22-30); LDH 2310 U/L (313-618)
[2020-06-25 04:49] LABS: ABG Base Excess 25.9 mmol/L; ABG Oxygen Saturation 91.1 % (94-97); ABG PH 7.38 (7.35-7.45); ABG PO2 61 mmHg (83-108); ABG TCO2 54 mmol/L (19-24); Allen Test Performed? Yes
[2020-06-25 04:55] LABS: ABG PCO2 87 mmHg (35-45)
[2020-06-25 04:56] LABS: ABG HCO3 51 mmol/L (21-25)
[2020-06-25] MEDS: CLEVIDIPINE BUTYRATE 25 MG in EMPTY BAG 1 BAG IV SCH ×3 (05:37→20:04)
[2020-06-25 05:45] LABS: Glucose,Whole Blood 136 mg/dL (75-99)
[2020-06-25] MEDS: INSULIN ASPART (NovoLOG) 100 UNIT/ML VIAL SQ SCH ×3 (05:47→17:46)
--- NOTE | 2020-06-25 07:07 | XR ---
EXAMINATION TYPE: XR chest 1V portable DATE OF EXAM: 06/25/2020 COMPARISON: Chest x-ray 06/24/2020 HISTORY: Intubated TECHNIQUE: Single frontal view of the chest is obtained. FINDINGS: Endotracheal tube, orogastric tube, bilateral chest tubes, right-sided PICC line are all a gain noted. No sizable pneumothorax or pleural effusion. Cardiac mediastinal silhouette is stable, th ere is change of pneumomediastinum, \extensive subcutaneous emphysema again seen. Bilateral airspace disease is suspected. IMPRESSION: Findings similar to prior exam. Correlate for pneumonia, ARDS
--- NOTE | 2020-06-25 07:37 | CONS ---
CONSULTATION DATE OF SERVICE: 06/24/2020 REASON FOR CONSULTATION: Positive sputum culture. HISTORY OF PRESENT ILLNESS: The patient is a 55-year-old male who presented to [facility] more than 12 days ago on April 15, 2020 for evaluation of generalized body aches, fatigue, cough and white sputum production and increasing shortness of breath. The patient's symptoms have been going on since June 01. The patient was diagnosed with COVID-19 on 06/08/2020. Admitted to the hospital for COVID-19 on 06/13/2020. The patient was evaluated by the pulmonary service and was considered to be out of the therapeutic window for Remdesivir and the patient received convalescent plasma and Actemra x1. Over the next few days, the patient seemed to have progressive worsening of his respiratory status and had developed subcutaneous emphysema with significant swelling of the body and the periorbital area. The patient got intubated on 06/20/2020 for his worsening respiratory status and the patient did have bilateral chest tube placement. The patient has been running a fever periodically during this hospital stay with last temperature this morning of 101.2 degrees Fahrenheit. The patient currently on the vent setting around 89 to 88% on 60% FiO2. The patient is hemodynamically stable, not on any pressor support. No significant purulent secretions through the ET or diarrhea reported by nursing staff. The patient did have a white count of 21.7, slightly higher than yesterday of 17.9. He did have a white count of 29.6 on June 20. Kidney function is normal. Liver enzymes are elevated. Procalcitonin 0.6 done on the and not repeated since then. Patient sputum is showing Staph aureus and Moraxella that has prompted this infectious disease consultation. The patient's chest x-ray done this morning, bilateral subcutaneous emphysema, bilateral chest tubes, pneumothorax, small amount of pneumomediastinum with lung airspace disease. Most of the information has been obtained from review of the chart and talking to nursing staff as the patient on the vent and unable to provide any history. REVIEW OF SYSTEMS: Positive points have been mentioned in HPI. Complete review could not be obtained because of current condition. PAST MEDICAL HISTORY: No major illnesses. PAST SURGICAL HISTORY: No major surgery. SOCIAL HISTORY: No history of smoking, drinking or drug use. FAMILY HISTORY: Mother from lung cancer. ALLERGIES: No known drug allergies. MEDICATIONS: The patient is currently on vancomycin, Pharmacy dosing, cefepime 2 q8h. The patient is on vitamin C, Tylenol, dexamethasone, Lovenox, fentanyl, Motrin, NovoLog, Lactulose, Narcan, Protonix, zinc sulfate. PHYSICAL EXAMINATION: VITAL SIGNS: Blood pressure 139/81 with a pulse of 122, temperature 98.8, T-max 101, he is 88% on 60% FIO2. GENERAL DESCRIPTION: Patient is a middle-aged male intubated on the vent. HEENT: Examination shows significant pallor and orbital swelling bilaterally. Limited examination of the scleral. The patient is orally intubated. NECK: Trachea central, no thyromegaly. LUNGS: Unlabored breathing, decreased intensity of breath sounds, no wheeze. HEART: S1-S2, regular rate and rhythm. ABDOMEN: Soft, no tenderness. No guarding or rigidity. EXTREMITIES: No edema of the feet. SKIN: No rash or mass palpable. NEUROLOGICAL: Patient is currently sedated on the vent. LABS: BUN of 48, creatinine 0.60. Hemoglobin is 13.4, white count 21.7. Liver enzymes are elevated. Sputum with Staph aureus and Moraxella. DIAGNOSTIC IMPRESSION: Patient with sepsis in this patient admitted to the hospital for more than 12 days ago for COVID-19 infection. Now with sepsis picture, source possible pneumonia with sputum showing Staph aureus. Sensitivities pending. Possible MRSA or Moraxella catarrhalis in this patient with evidence of significant subcutaneous emphysema requiring pneumothorax requiring bilateral chest tube placement. PLAN: 1. Vancomycin, Pharmacy to dose target of 15 while watching his kidney function closely. 2. Cefepime 2 grams q.8 hours. 3. We will follow on his clinical condition and culture to further adjust medication if needed. Thank you for this consultation. Will follow this patient along with you. MMODL / IJN: [id number] /
--- NOTE | 2020-06-25 08:02 | P.PN ---
Subjective Progress Note Date: 06/25/20 Principal diagnosis: Acute COVID-19 pneumonia, pneumomediastinum, extensive subcutaneous emphysema, acute hypoxic respiratory failure, elevated inflammatory markers secondary to Co vid-19, leukocytosis, thrombocytopenia, hypotension post intubation, respiratory acidosis POD #5 placement of bilateral chest tubes by Dr. Dominique The patient remains laying in bed in the intensive care unit, remains intubated, sedated, and paralyzed. Bilateral chest tubes remain in place, intermittent air leak again seen in the right chest tube, no air leaks present in left chest tube, minimal drainage, subcutaneous emphysema remains present, unchanged. Ventilator changes continued to be made by pulmonology, currently on 60% FiO2 and 20 PEEP. WBC 16.4, D-dimer 2.72, CRP 4.9, LDH 2310. Tmax this morning 100.1F. Suputum culture preliminary positive for presumptive staph, moraxella, remains on IV cefepime, vanco added. Objective - Vital Signs Vital signs: Vital Signs Temp 99.9 F H 06/25/20 04:00 Pulse 115 H 06/25/20 07:00 Resp 34 H 06/25/20 07:00 BP 146/97 06/25/20 07:00 Pulse Ox 89 L 06/25/20 07:00 Intake & Output 06/24/20 06/25/20 06/25/20 18:59 06:59 18:59 Intake Total 0018.097 0056.133 78 Output Total 1190 845 60 Balance 716.750 6103.133 18 Weight 76.5 kg 72 kg Intake: IV 739 1020 50 0.9 140 20 Cefepime 2 gm In Sodium 200 Chloride 0.9% 100 ml @ 25 mls/hr IVPB Q8HR [facility] Rx# :[id number] Dextrose 5% in Water 1, 125 500 50 000 ml @ 25 mls/hr IV . Q24H [facility] with Sodium Bicarb (1 Meq/ml) 150 ml Rx#:[id number] Vancomycin 1,500 mg In 250 500 Sodium Chloride 0.9% 250 ml @ 125 mls/hr IVPB Q8H [facility] Rx#:[id number] pressure bag 24 Intake, IV Titration 719.583 776.133 Amount Cisatracurium 200 mg In 51.943 Sodium Chloride 0.9% 180 ml @ 1 MCG/KG/MIN 3.81 mls/hr IV .Q24H [facility] Rx#: [id number] Clevidipine Butyrate 25 78.833 128.166 mg In Empty Bag 1 bag @ 1 MG/HR 2 mls/hr IV .Q24H [facility] Rx#:[id number] fentaNYL (PF). 1,000 mcg 189.548 247.967 In Sodium Chloride 0.9% 80 ml @ Per Protocol IV . Q0M [facility] Rx#:[id number] propofoL 1,000 mg In 399.259 400 Empty Bag 1 bag @ Titrate IV .Q0M [facility] Rx#: [id number] Tube Feeding 274 335 28 Other 90 90 Output: Chest Tube Drainage 100 Chest Tube Left 25 Chest Tube Right 75 Urine 1090 845 60 Other: Voiding Method Indwelling Catheter Indwelling Catheter ABP, PAP, CO, CI - Last Documented Arterial Blood Pressure 121/65 - Exam CONSTITUTIONAL: Currently sedated and paralyzed on mechanical ventilation EYES: Subcutaneous emphysema present over both eyes ENT: Moist mucous membranes without oral lesions present NECK: No masses, no bruits, trachea midline RESPIRATORY: Lungs sounds diminished to auscultation bilaterally. Currently on mechanical ventilation, assist control mode, FiO2 60%, PEEP 20, tidal volume 400, respiratory rate 34. ABGs this am on those settings 7.38/87/61/51/91%/BE 25.9. 8.0 ET tube present, 25 at the lip. Subcutaneous emphysema present to the chest, arms, neck, face, about the same as yesterday. CARDIOVASCULAR: S1, S2 present. Tachycardic but regular rate and rhythm, sinus tach on telemetry with heart rate in the 120s. Palpable peripheral pulses bilaterally. SCDs present. GASTROINTESTINAL: Abdomen soft, nontender, nondistended without masses or organomegaly noted. Active bowel sounds present 4 quadrants. OG tube present, tube feeding infusing at 28 ml/hr. GENITOURINARY: Indwelling catheter present draining clear, yellow urine. Urine output 60-75 mL per hour INTEGUMENTARY: Skin is warm and slightly moist NEUROLOGIC: Unable to assess as patient is currently receiving IV paralytic INVASIVE LINES/TUBES: Right PICC line, left radial arterial line present. Right and left pleural chest tubes present, intermittent air leak again noted in right chest tube, no air leak present in left chest tube, minimal drainage. - Allied health notes Allied health notes reviewed: nursing - Labs CBC & Chem 7: 06/25/20 04:06 06/25/20 04:06 Labs: Abnormal Lab Results - Last 24 Hours (Table) 06/24/20 06/24/20 06/24/20 Range/Units 11:56 17:58 18:11 WBC (3.8-10.6) k/uL RBC (4.30-5.90) m/uL Hgb (13.0-17.5) gm/dL Hct (39.0-53.0) % Neutrophils # (1.3-7.7) k/uL Lymphocytes # (1.0-4.8) k/uL D-Dimer (<0.60) mg/L FEU ABG pCO2 (35-45) mmHg ABG pO2 (83-108) mmHg ABG HCO3 (21-25) mmol/L ABG Total CO2 (19-24) mmol/L ABG O2 Saturation (94-97) % Potassium 6.1 H* (3.5-5.1) mmol/L Carbon Dioxide (22-30) mmol/L BUN (9-20) mg/dL Creatinine (0.66-1.25) mg/dL Glucose (74-99) mg/dL POC Glucose (mg/dL) 178 H 170 H (75-99) mg/dL ALT (4-49) U/L Alkaline Phosphatase (38-126) U/L Lactate Dehydrogenase (313-618) U/L C-Reactive Protein (<1.0) mg/dL Total Protein (6.3-8.2) g/dL Albumin (3.5-5.0) g/dL 06/24/20 06/25/20 06/25/20 Range/Units 23:50 04:06 04:06 WBC 16.4 H (3.8-10.6) k/uL RBC 3.90 L (4.30-5.90) m/uL Hgb 12.1 L (13.0-17.5) gm/dL Hct 37.3 L (39.0-53.0) % Neutrophils # 14.7 H (1.3-7.7) k/uL Lymphocytes # 0.8 L (1.0-4.8) k/uL D-Dimer (<0.60) mg/L FEU ABG pCO2 (35-45) mmHg ABG pO2 (83-108) mmHg ABG HCO3 (21-25) mmol/L ABG Total CO2 (19-24) mmol/L ABG O2 Saturation (94-97) % Potassium (3.5-5.1) mmol/L Carbon Dioxide 52 H* (22-30) mmol/L BUN 48 H (9-20) mg/dL Creatinine 0.63 L (0.66-1.25) mg/dL Glucose 146 H (74-99) mg/dL POC Glucose (mg/dL) 155 H (75-99) mg/dL ALT 87 H (4-49) U/L Alkaline Phosphatase 214 H (38-126) U/L Lactate Dehydrogenase 2310 H (313-618) U/L C-Reactive Protein 4.9 H (<1.0) mg/dL Total Protein 5.3 L (6.3-8.2) g/dL Albumin 2.8 L (3.5-5.0) g/dL 06/25/20 06/25/20 06/25/20 Range/Units 04:06 04:40 05:43 WBC (3.8-10.6) k/uL RBC (4.30-5.90) m/uL Hgb (13.0-17.5) gm/dL Hct (39.0-53.0) % Neutrophils # (1.3-7.7) k/uL Lymphocytes # (1.0-4.8) k/uL D-Dimer 2.72 H (<0.60) mg/L FEU ABG pCO2 87 H* (35-45) mmHg ABG pO2 61 L (83-108) mmHg ABG HCO3 51 H* (21-25) mmol/L ABG Total CO2 54 H (19-24) mmol/L ABG O2 Saturation 91.1 L (94-97) % Potassium (3.5-5.1) mmol/L Carbon Dioxide (22-30) mmol/L BUN (9-20) mg/dL Creatinine (0.66-1.25) mg/dL Glucose (74-99) mg/dL POC Glucose (mg/dL) 136 H (75-99) mg/dL ALT (4-49) U/L Alkaline Phosphatase (38-126) U/L Lactate Dehydrogenase (313-618) U/L C-Reactive Protein (<1.0) mg/dL Total Protein (6.3-8.2) g/dL Albumin (3.5-5.0) g/dL Microbiology - Last 24 Hours (Table) 06/21/20 21:50 Gram Stain - Preliminary Sputum Sputum Culture - Preliminary Presumptive Staph aureus Moraxella(branhamella) catarra - Imaging and Cardiology Chest x-ray: report reviewed, image reviewed Assessment and Plan Assessment: 1. Acute COVID-19 pneumonia 2. Pneumomediastinum, extensive subcutaneous emphysema, S/P placement of right and left pleural chest tubes by pulmonology 3. Acute hypoxic respiratory failure, currently on mechanical ventilation 4. Elevated inflammatory markers secondary to Covid, trending down 5. Leukocytosis, febrile, preliminary sputum culture from 06/21/20 growing presumptive staph and morexella 6. Thrombocytopenia, resolved 6. Hypotension post intubation, currently off pressors and hypertensive requiring cleviprex 7. Respiratory acidosis Plan: 1. Continue both chest tubes to continuous wall suction, monitor for resolution of subcutaneous emphysema. No plans to remove chest tube anytime soon 2. Mechanical ventilation, sedation, paralytic, antibiotics, covid managment per therapist radiation 3. No surgery is warranted 4. GI/DVT prophylaxis 5. Will monitor daily CXR 6. Patient remains critically ill with poor prognosis Time with Patient: Greater than 30
[2020-06-25] MEDS: CISATRACURIUM 200 MG in SODIUM CHLORIDE 0.9% 180 ML IV SCH (09:08)
[2020-06-25] MEDS: CEFEPIME 2 GM in SODIUM CHLORIDE 0.9% 100 ML IVPB SCH ×2 (09:08→17:09)
[2020-06-25] MEDS: LACTULOSE 20 GM/30 ML CUP PO SCH ×2 (09:16→22:23)
[2020-06-25] MEDS: CHLORHEXIDINE GLUCONATE 15 ML CUP MUCOUS MEM SCH ×2 (09:17→22:23)
[2020-06-25] MEDS: DEXAMETHASONE SOD PHOSPHATE 10 MG/ML 1 ML VIAL IV SCH (09:17)
[2020-06-25] MEDS: ASCORBIC ACID 500 MG TAB PO SCH (09:18)
[2020-06-25] MEDS: ZINC SULFATE 220 MG CAP PO SCH (09:18)
[2020-06-25] MEDS: PANTOPRAZOLE 40 MG/10 ML VIAL IVP SCH (09:19)
[2020-06-25] MEDS: CHOLECALCIFEROL 25 MCG (1000 IU) TABLET PO SCH (09:19)
--- NOTE | 2020-06-25 10:15 | P.PN ---
Subjective Progress Note Date: 06/25/20 Principal diagnosis: Acute hypoxic failure secondary to COVID-19 pneumonia 06/20/2020, the patient is being seen for a follow-up. The patient is a case of COVID-19 related pneumonia [place] by pneumomediastinum and bilateral subcutaneous emphysema. Overnight, he was kept on a BiPAP and the patient progressively became more hypoxic. He was on a BiPAP pressure of 12/6 with an FiO2 of 100%. I increased him up to 14/10 and later on up to 16/12 and despite that the patient continued to be hypoxic and in fact his pulse ox dropped down to the low 70s and he became more hypoxic and altered and agitated. During the course of his treatment, the patient's anxiety level is going up and he was becoming very much agitated. He was started on Precedex. Ultimately the decision was to intubate the patient put him on a mechanical ventilator. Currently is sedated with a combination of propofol and fentanyl and the patient is also paralyzed with Nimbex. He is on a mechanical ventilator. Patient is currently on propofol at a dose of 75 mcg/kg per minute. The patient is also paralyzed with Nimbex at a dose of 1 mg/kg per minute. He is on a mechanical ventilator currently on assist control mode with a tidal volume 400, rate of 34, FiO2 of 100% and PEEP of 20. Most recent blood gas showed a pH of 7.08 with a pO2 of 101 and pO2 164. The patient was given a total of 4 ampules of sodium bicarbonate regarding his underlying respiratory acidosis to correct his acidosis. The patient has become hypotensive. He received a total of 2 L of IV fluid and currently is on normal saline infusion. Norepinephrine is running at 0.1 mg/kg per minute for blood pressure support. On today's blood work, his white cell count is up to 29 with a hemoglobin of 17. BUN is 28 with a creatinine of 0.7. LFTs are slightly elevated. His chest x-ray post intubation shows no evidence of any pneumothorax. The patient has bilateral saphenous emphysema. ET tube is in a good location. On clinical examination, the patient has extensive subcutaneous emphysema bilaterally on involving his chest and his neck area. Otherwise, feels well sedated for now. Fentanyl was also added to support his sedation. He remains on Decadron at a dose of 6 mg IV every 24 hours. He is also on anticoagulation with Lovenox 40 mg subcu U 12 hours. Follow-up d-dimer today's at 35. Patient was seen by Dr. Kern early this morning, his condition deteriorated, patient required intubation and mechanical ventilation. His ABG after intubation remains very poor. Patient developed worsening subcutaneous emphysema, however his chest x-ray could not rule out a very tiny right apical pneumothorax versus artifact. Continues to have groundglass infiltrates bilaterally. Because of his worsening subcutaneous emphysema, thoracic surgery was consulted. ABG post intubation showed a pO2 of 137 pCO2 of 87 pH of 7.18. Patient has significantly elevated WBC count of 29.6. Hemoglobin is 17. Elect ra lites are normal except for potassium of 5.4. Renal profile is normal. His inflammatory markers are worse with LDH of almost 10,000. And C-reactive protein is 501. Obviously the patient is taking a downhill course, and he is clinically deteriorating. He is now on assist control rate of 34 tidal volume is 400 FiO2 is 75% PEEP of 18 peak airway pressure is 35 and plateau pressure is 32. Fluids-rodriguez he is on IV fluid at KVO, propofol at 75 fentanyl 2 Nimbex at one and norepinephrine at 0.2. Patient was reevaluated today on 06/21/2020, patient remains intubated and mechanically ventilated. Patient is on assist control rate of 34, tidal volume is 400 FiO2 is 100% PEEP of 16. ABG showed a pO2 of 77 pCO2 of 78 pH of 7.31. WBC count is 15.9 hemoglobin is 14.6, d-dimer is down to 14.68, it was 35 yesterday patient had bilateral chest tube placement yesterday, chest x-ray showed improvement, hardly any pneumothorax is noted, subcutaneous emphysema seems to be less. Electro lites are normal renal profile is normal LDH is 3891 C-reactive protein is 4.1 CPK is 902. WBC count is 15.9 hemoglobin is 14.6. Peak airway pressure is 35 static pressures 29. Patient remains on norepineph rine, fentanyl, propofol 75 Nimbex, and he is still receiving sodium bicarb drip. Based on his ABG, I will cut it down. I was able to cut down his FiO2 down to 80%, kept him on a PEEP of 16, and my plan is to eventually taper down his FiO2 and tapered down his speech. Patient remains on enteral feeding using Nepro 17/17. Chest x-ray continues to show bilateral patchy opacities, and subcutaneous emphysema. Improved chest x-ray compared to yesterday. Less subcutaneous emphysema, and less pulmonary opacities noted. Patient was reevaluated today on 06/22/2020, remains in the ICU, intubated and mechanically ventilated. He is on assist control rate of 34 tidal volume is 400 FiO2 is 100% PEEP is 20. ABG showed a pO2 of 95 pCO2 of 86 pH of 7.33, hence I cut down the FiO2 down to 70% and kept the same vent settings. Patient had peak airway pressure of 40 static pressure of 24. Remains on propofol at 75., fentanyl, at 2, Nimbex at 2 and bicarb at 75 mL per hour. Patient remains sedated and paralyzed, I cut down his bicarb drip because of his improving acidosis. Patient continues to have bilateral chest tubes, no air leak in either chest tube. Remains on enteral feeding/Nepro 17/17. Patient is in sinus rhythm, a bit tachycardic at 108, hemodynamically stable, not requiring any pressors. WBC count is 20.3 hemoglobin is 15.7. Electro lites are normal. Renal profile is normal. LDH is 3346 and CPK is 365 C-reactive protein is 4.1. The LDH seems to be trending down, it was as high as almost 10,000. Chest x-ray is showing basically no change, bilateral chest tubes remain in place, no evidence of pneumothorax on either side, there is subcutaneous emphysema but seems to be improving. Diffuse airspace infiltrates persist, unchanged. Patient was reevaluated today on 06/23/2020, remains intubated and mechanically ventilated. Remains in the ICU, sedated and paralyzed. He is on assist control rate of 34, tidal volume is 400 FiO2 is 65 and PEEP is 20. ABG showed a pO2 of 77 pCO2 of 86 pH of 7.37. Patient remains on propofol at 75, fentanyl S3, pleasant Pleurx at 8 mg per hour, Nimbex at 2. Plan to give the patient a trial of Nimbex holiday today if possible. Remains on Nepro 17/17. Chest x-ray is basically the same, continues to show bilateral patchy infiltrates and subcutaneous emphysema. Patient is hemodynamically stable, not requiring any pressors, however he is a bit tachycardic rate is 120. Both sided chest tubes are about the same, and no leaks noted. Basic metabolic profile is normal, bicarb is 45. Patient remains on bicarb drip. D-dimer is 4.66. WBC count is 17.6 hemoglobin is 12.9. LDH remains high at 2747, C-reactive protein is 7 and CPK is 178. Patient was reevaluated today on 06/24/20, remains in the ICU, intubated and mechanically ventilated, sedated and paralyzed. He is on assist control rate of 34 tidal volume is 400 FiO2 of 65% and PEEP remains at 20. Peak airway pressure is about 39 and plateau pressure is 35. ABG showed a pO2 of 75 pCO2 83 pH of 7.39. Hence I decreased the FiO2 down to 60% kept him on the same PEEP/20. Patient remains on propofol at 75 Nimbex at 2 fentanyl S3, proximal at 5 mg per hour and he is also on a bicarb drip which I have discontinued today considering his ABG is showing metabolic compensation significant to his respiratory acidosis. Chest x-ray continues to show bilateral subcutaneous emphysema, improved, and bilateral patchy infiltrates I believe a bit better. Chest tubes remain in place, minimal air leak noted in the right-sided chest tube. No air leak noted in the left sided chest tube. Patient remains on enteral feeding, he is receiving Nepro . WBC count today is 21.7. D-dimer is 3.96. Electrolytes are normal bicarb is 48 BUN is 48 creatinine 0.60. LDH remains high at 2733 however it was as high as 10,002 days ago. C-reactive protein is down to 4.7. Reevaluated today on 06/25/2020, patient remains intubated and mechanically ventilated. He is on assist control rate of 34 tidal volume is 400 FiO2 60% PEEP remains at 20. His ABG today showed a pO2 of 61 pH of 7.38 and pCO2 of 87. Patient continues to have 2 chest tubes for his barotrauma, no air leak noted in the left sided chest tube, but intermittently noted in the right sided chest tube. Patient remains on D5W with bicarbonate 50 ML per hour propofol at 75 clevidipine 2 mg/h Nimbex at 2 fentanyl 3 mcg/kg/h. Chest x-ray continues to show bilateral infiltrates consistent with COVID-19 pneumonia, possibly a small right-sided apical pneumothorax is noted on the chest x-ray today. Left lung is fully expanded. Continues to have a pneumomediastinum and he continues to have subcutaneous emphysema in the neck region especially in the left side. Hence went ahead and placed a small tiny Angiocath, 14-gauge Angiocath to relieve some of the subcutaneous emphysema in the supraclavicular fat pad area WBC count is 16.4 hemoglobin is 12 sodium remains high at 145. Bicarb remains at [address] the patient back on bicarb mostly because of his hyperkalemia and wanted to keep his acidosis under control. Although it is mostly a respiratory type of acidosis alkaline phosphatase is 214, AST is 87. LDH is 2310. C-reactive protein is 4.1, Objective - Vital Signs Vital signs: Vital Signs Temp 99.9 F H 06/25/20 04:00 Pulse 115 H 06/25/20 09:30 Resp 34 H 06/25/20 09:30 BP 139/85 06/25/20 09:30 Pulse Ox 90 L 06/25/20 09:30 Intake & Output 06/24/20 06/25/20 06/25/20 18:59 06:59 18:59 Intake Total 6703.351 6281.133 595.455 Output Total 1190 845 210 Balance 245.295 9415.133 385.455 Weight 76.5 kg 72 kg Intake: IV 739 1020 253 0.9 140 20 Cefepime 2 gm In Sodium 200 100 Chloride 0.9% 100 ml @ 25 mls/hr IVPB Q8HR [facility] Rx# :[id number] Dextrose 5% in Water 1, 125 500 150 000 ml @ 25 mls/hr IV . Q24H [facility] with Sodium Bicarb (1 Meq/ml) 150 ml Rx#:[id number] Vancomycin 1,500 mg In 250 500 Sodium Chloride 0.9% 250 ml @ 125 mls/hr IVPB Q8H [facility] Rx#:[id number] pressure bag 24 3 Intake, IV Titration 719.583 776.133 258.455 Amount Cisatracurium 200 mg In 51.943 153.67 Sodium Chloride 0.9% 180 ml @ 1 MCG/KG/MIN 3.81 mls/hr IV .Q24H [facility] Rx#: [id number] Clevidipine Butyrate 25 78.833 128.166 14.133 mg In Empty Bag 1 bag @ 1 MG/HR 2 mls/hr IV .Q24H [facility] Rx#:[id number] fentaNYL (PF). 1,000 mcg 189.548 247.967 In Sodium Chloride 0.9% 80 ml @ Per Protocol IV . Q0M [facility] Rx#:[id number] propofoL 1,000 mg In 399.259 400 90.652 Empty Bag 1 bag @ Titrate IV .Q0M [facility] Rx#: [id number] Tube Feeding 274 335 84 Other 90 90 Output: Chest Tube Drainage 100 Chest Tube Left 25 Chest Tube Right 75 Urine 1090 845 210 Other: Voiding Method Indwelling Catheter Indwelling Catheter ABP, PAP, CO, CI - Last Documented Arterial Blood Pressure 121/65 - Exam Gen.: Revealed a 55-year-old white male, sedated and paralyzed, on mechanical ventilation, continues to have subcutaneous emphysema in the neck and in the periorbital region. HEENT: PERRLA, EOMI, nonicteric. Periorbital swelling remains about the same. Endotracheal tube and orogastric tubes are intact. Supraclavicular subcutaneous emphysema is noted. Chest: Crackles and rhonchi bilaterally. Significant subcutaneous emphysema noted anteriorly and crepitation noted. Bilateral chest tubes are noted to be intact. SubCutaneous emphysema and the chest persists. Cardiac exam: Normal S1 and S2, no gallops. Abdomen: Soft nontender no megaly no rebound. Extremities: No clubbing edema or cyanosis. Skin: No rashes. Neurologic: patient is sedated and paralyzed. Eye: Could not assess. Musculoskeletal: No deformities, patient is paralyzed, could not assess range of motion. Lymphatics: No lymphadenopathy. - Labs CBC & Chem 7: 06/25/20 04:06 06/25/20 04:06 Labs: Abnormal Lab Results - Last 24 Hours (Table) 06/24/20 06/24/20 06/24/20 Range/Units 11:56 17:58 18:11 WBC (3.8-10.6) k/uL RBC (4.30-5.90) m/uL Hgb (13.0-17.5) gm/dL Hct (39.0-53.0) % Neutrophils # (1.3-7.7) k/uL Lymphocytes # (1.0-4.8) k/uL D-Dimer (<0.60) mg/L FEU ABG pCO2 (35-45) mmHg ABG pO2 (83-108) mmHg ABG HCO3 (21-25) mmol/L ABG Total CO2 (19-24) mmol/L ABG O2 Saturation (94-97) % Potassium 6.1 H* (3.5-5.1) mmol/L Carbon Dioxide (22-30) mmol/L BUN (9-20) mg/dL Creatinine (0.66-1.25) mg/dL Glucose (74-99) mg/dL POC Glucose (mg/dL) 178 H 170 H (75-99) mg/dL ALT (4-49) U/L Alkaline Phosphatase (38-126) U/L Lactate Dehydrogenase (313-618) U/L C-Reactive Protein (<1.0) mg/dL Total Protein (6.3-8.2) g/dL Albumin (3.5-5.0) g/dL 06/24/20 06/25/20 06/25/20 Range/Units 23:50 04:06 04:06 WBC 16.4 H (3.8-10.6) k/uL RBC 3.90 L (4.30-5.90) m/uL Hgb 12.1 L (13.0-17.5) gm/dL Hct 37.3 L (39.0-53.0) % Neutrophils # 14.7 H (1.3-7.7) k/uL Lymphocytes # 0.8 L (1.0-4.8) k/uL D-Dimer (<0.60) mg/L FEU ABG pCO2 (35-45) mmHg ABG pO2 (83-108) mmHg ABG HCO3 (21-25) mmol/L ABG Total CO2 (19-24) mmol/L ABG O2 Saturation (94-97) % Potassium (3.5-5.1) mmol/L Carbon Dioxide 52 H* (22-30) mmol/L BUN 48 H (9-20) mg/dL Creatinine 0.63 L (0.66-1.25) mg/dL Glucose 146 H (74-99) mg/dL POC Glucose (mg/dL) 155 H (75-99) mg/dL ALT 87 H (4-49) U/L Alkaline Phosphatase 214 H (38-126) U/L Lactate Dehydrogenase 2310 H (313-618) U/L C-Reactive Protein 4.9 H (<1.0) mg/dL Total Protein 5.3 L (6.3-8.2) g/dL Albumin 2.8 L (3.5-5.0) g/dL 06/25/20 06/25/20 06/25/20 Range/Units 04:06 04:40 05:43 WBC (3.8-10.6) k/uL RBC (4.30-5.90) m/uL Hgb (13.0-17.5) gm/dL Hct (39.0-53.0) % Neutrophils # (1.3-7.7) k/uL Lymphocytes # (1.0-4.8) k/uL D-Dimer 2.72 H (<0.60) mg/L FEU ABG pCO2 87 H* (35-45) mmHg ABG pO2 61 L (83-108) mmHg ABG HCO3 51 H* (21-25) mmol/L ABG Total CO2 54 H (19-24) mmol/L ABG O2 Saturation 91.1 L (94-97) % Potassium (3.5-5.1) mmol/L Carbon Dioxide (22-30) mmol/L BUN (9-20) mg/dL Creatinine (0.66-1.25) mg/dL Glucose (74-99) mg/dL POC Glucose (mg/dL) 136 H (75-99) mg/dL ALT (4-49) U/L Alkaline Phosphatase (38-126) U/L Lactate Dehydrogenase (313-618) U/L C-Reactive Protein (<1.0) mg/dL Total Protein (6.3-8.2) g/dL Albumin (3.5-5.0) g/dL Microbiology - Last 24 Hours (Table) 06/21/20 21:50 Gram Stain - Preliminary Sputum Sputum Culture - Preliminary Presumptive Staph aureus Moraxella(branhamella) catarra Assessment and Plan Assessment: Impression: Acute hypoxic respiratory failure secondary to COVID-19 pneumonia Acute barotrauma from mechanical ventilation and relatively high PEEP. Requiring chest tube placement on left and right side. Right-sided chest tube c ontinues to have intermittent air leak, left-sided chest tube is fine no leaking note Acute leukocytosis, suspect underlying secondary bacterial infection. Sputum cultures are positive for Moraxella catarrhalis, and presumptive staph aureus. Patient is on cefepime, vancomycin until the final report comes back on the presumptive staph aureus. Normally Moraxella catarrhalis is highly susceptible to cefepime. Elevated inflammatory markers improving based on the labs today. Hypotension post intubation, resolved. Thrombocytopenia secondary to sepsis. Recommendation: 14-gauge Angiocath was placed in the left supraclavicular fat pad area to relieve some of the subcutaneous emphysema. Continue ventilatory support. Continue the vitamin cocktail and COVID-19 cocktail. Continue sedatives and paralytics for now. Continue both chest tubes to suction Patient received toci and convalescent plasma. Continue GI and DVT prophylaxis. Continue nutritional support. /Enteral feeding. Continue Lovenox. Continue antibiotics , patient is now on cefepime and vancomycin. Patient continues to have poor prognosis considering all the findings above. Remains critically ill, critical care time is over 30 minutes. Time with Patient: Greater than 30
--- NOTE | 2020-06-25 10:51 | P.PN ---
Subjective Progress Note Date: 06/25/20 This is a 55-year-old male patient of Dr. Maxwell Alexander with significant past medical history. Patient states he started having symptoms on June 01 and was diagnosed with COVID-19 on June 08. Patient symptoms or body aches and fatigue as well as cough with white sputum production, increasing shortness of breath and measured pulse ox at home which worsened. He complains of headache chills and nausea. Patient presented to [facility] emergency center for evaluation. Patient was afebrile, heart rate 101, blood pressure 114/75, pulse ox 86% on room air. WBC 6.4, hemoglobin 16.2, platelet count 153. D-dimer 0.84. AST 106, ALT 44, alkaline phosphatase 57, LDH 2547. CRP 150. Sodium 129, potassium 4.6, chloride 97, CO2 23, BUN 12 and creatinine 0.84. Blood sugar 114. Chest x-ray reveals extensive pulmonary infiltrates related to pneumonia and ARDS. CTA of the chest reveals no pulmonary embolism. Patchy areas of nodular consolidations in the bilateral lower lobes with groundglass consolidation of the peripheral of the bilateral upper lobes consistent with multifocal infection compatible with Covid pneumonia. No pleural effusions or pneumothorax. Patient has been seen by pulmonary medicine is not a candidate for Remdesivir. Convalescent plasma has been ordered as well as Tocilizumab 1 dose. Patient is currently pulse ox 95% on 15 L nonrebreather. 06/15: Repeat chest x-ray reveals worsening infiltrates. Patient is currently on nonrebreather and nasal cannula with pulse ox of 89%. Patient states that he is not sleeping because of coughing. He continues to have cough, shortness of breath. Noted to be tachypneic. Patient states he is eating okay. Melatonin, Flonase and Tessalon Perles added. Patient has been afebrile, heart rate 87, respiratory rate 32, blood pressure 112/70. Repeat blood work reveals WBC 11.4, hemoglobin 15.4, platelet count 208. D-dimer 0.95. Sodium 136 other electrolytes and renal function normal. Blood sugar 118. AST 96, ALT 67, alkaline phosphatase 70. LDH 2884. C-reactive protein 59.4. 06/16: Patient's pulse ox is 90-92% on high flow nasal cannula at 13 L along with 100% nonrebreather. Patient was seen by Dr. Kern plan is to try and wean off 100% oxygen. Patient states that his breathing is stable today. He continues to have shortness of breath with minimal activity and cough. Patient started on mycelex noemi for thrush. He has been afebrile, heart rate 80, blood pressure 114/69. Repeat chest x-ray reveals improving bilateral lung infiltrates. Patient is continued on dexamethasone, Lovenox and vitamin supplements. 06/17: Yesterday afternoon, received call the patient had subcutaneous emphysema that was new and stat chest x-ray was ordered. This revealed interval development of subcutaneous emphysema within the bilateral neck. Some pneumo mediastinum may be present as the source. Pneumothorax is identified. This was reviewed by Dr. Kern at the time. Last evening at 2200, A-Team was called for puffiness of the neck and shoulder skin. Repeat chest x-ray revealed prominent interval increase in subcutaneous emphysema pattern. Patient was transferred to the intensive care unit. Patient has been seen in the intensive care unit today. He remains on 15 L high flow nasal cannula in addition to 100% nonrebreather facemask. D-dimer is 17.6, LDH 533. Patient remains on Decadron, Lovenox and supplements. Promethazine was added for cough suppression. Subcutaneous emphysema is stable. 06/18 patient evaluated bedside has worsening subcutaneous emphysema. Does appear anxious on examination. He is on Xanax to 0.25 mg twice a day with no improvement in patient's and slightly. We'll repeat chest x-ray does suggest tiny pneumothorax in addition to subcutaneous emphysema. Patient is currently maintaining oxygen saturation on interval 60 L with FiO2 of 90% with a nonreb reather 100%. Minimum exertion is causing desaturation. Patient appears to have worsening inflammation markers including worsening LDH and liver enzymes. Pulmonary care for management of the Covid. Continues to keep patient on dexamethasone, convalescent plasma. Patient is not a candidate for remdesivir. We will start patient on Lexapro 10 mg daily at bedtime to help with anxiety. IV fluids switch to D5NS as patient is not eating being on mask and is hungry. 06/19 patient evaluated bedside has worsening subcutaneous emphysema, facial swelling and pneumomediastinum. Patient is alert and keeping saturation 90-92% on BiPAP. He appears anxious and is breathing at 26 respiratory rate per minute. Blood pressure 1:30/74 heart rate of 113.chest x-rays consistent with bilateral subcutaneous emphysema and pneumomediastinum any apical pneumothorax dizzy and chest tube at this point. On evaluation patient's labs patient's leukocytosis and 19 sodium stable at 1:30, creatinine 0.67 and ferritin is 3144 elevated liver enzymes early at 7846 increased from prior low albumin. patient continues to have increased in size the despite initiation of Remeron will increase Remeron to 30 mg at bedtime Xanax increased to 0.5 twice a day from 0.25. Ativan can be given if patient is unable to tolerate oral medication. Plan to start patient on TPN tomorrow. Low sodium could be a results of D5W 06/20: Repeat blood work reveals WBC 29.6, hemoglobin 17, platelet count 124. D- dimer greater than 35. Sodium 132, potassium 5.4, chloride 95, CO2 31, BUN 28 creatinine 0.75. Blood sugar 162. AST 131, ALT 92, alkaline phosphatase 310. LDH 9901. CK 501. C-reactive protein 3.7. Patient became more hypoxic during the night with pulse ox down to the low 70s with mental status changes. Patient was intubated and placed on mechanical ventilation. Tidal volume 400, FiO2 of 75% and PEEP of 18. He is on propofol, Nimbex, levo fed was started and he is status post 2 L of IV fluid. He has on a fentanyl drip. Patient has extensive subcutaneous emphysema. Remeron and clotrimazole discontinued 06/21: Patient remains intubated and on mechanical ventilation. Tidal volume 400, FiO2 decreased from 85-80% this morning, PEEP 16. Patient had bilateral chest tubes placed for pneumothorax bilaterally. This was done last evening. Patient is currently on Nimbex, fentanyl, levo fed. He is on tube feedings at goal. Temperature max 100.2, heart rate 107, respiratory rate 33, blood pressu re 118/62, pulse ox 90% with goal to keep above 85%. Repeat blood work reveals WBC 15.9, hemoglobin 14.6, platelet count 96. Sodium 137, potassium 5.1, chloride 100, CO2 39, BUN 26 and creatinine 0.69. Phosphorus 7.3. Magnesium 3.0. Total bilirubin 0.7, AST 59, ALT 61, alkaline phosphatase 190. D-dimer 14.6. LDH 3891. CK 902. C-reactive protein 4.1. Repeat chest x-ray reveals persistent severe bilateral subcutaneous emphysema limiting assessment. Underlying groundglass changes persist. Bilateral chest tubes. Right apical pneumothorax smaller 6 mm versus 2 cm previously. Left apical pneumothorax no longer seen. Better demonstrated pneumomediastinum though suspected to have decreased compared to prior exam. Patient does have less subcutaneous emphysema. 06/22: he remains intubated and on mechanical ventilation with tidal volume 400, FiO2 was 100% this morning and decrease to 70, PEEP is 20. Patient is on propofol and fentanyl as well as Nimbex and bicarb drip. He is not on norepinephrine. Patient is on tube feedings at goal. He remains with bilateral chest tubes in place, no air leak. He has been afebrile, heart rate 108, respiratory rate 34, a pressure 108/61, pulse ox is 90%. Repeat blood work reveals WBC 20, hemoglobin 13.7. D-dimer 10.74. CO2 42, BUN 31 creatinine 0.63. Blood sugars running between 130s to 177. Repeat chest x-ray reveals stable findings. patient remains intubated with a tidal volume of 400 FiO2 of 65% PEEP 20. Patient continues to remain sedated and paralyzed on propofol, fentanyl Precedex and Pneumovax. Continues to have chest tubes with slight air leaks noted. Chest x-ray continues to remain the same with bilateral patchy infiltrate and subcutaneous emphysema. Vitals this morning suggests tachycardia 120 respirat ory rate 34 saturating 90% on 65% FiO2 blood pressure 128/71 labs suggestive leukocytosis of 17.6 hemoglobin 12.9 ABG drawn at this morning suggests a pH of 7.3 pCO2 86 pO2 77 bicarb 50. Patient's LDH is 12,748. CRP 7. . 06/24 patient remains intubated and mechanically ventilated sedated and paralyzed on assist control with a tidal volume of 400 FiO2 60% PEEP on 20 respiratory rate of 14. ABG done this morning suggests a pO2 of 75 pCO2 83. 7.39. Patient continues to remain on propofol and Pneumovax and fentanyl. The bicarb drip discontinued. 10 chest x-ray shows bilateral subcutaneous emphysema with bilateral patchy infiltrates. Concern for small right apical pneumothorax measuring 1.2 cm versus 9 mm previously. Patient continues to have bilateral chest tubes, minimally leak noted in the right-sided chest tube. No air leak on the left-sided chest tube. Patient remains on enteral feeding. In assessment of patient's blood work slight improvement in CRP noted at 4.7H improved to 2733 liver enzymes continue to rise with AST of 90 ALT 105 alkaline phosphatase 2:30. Bicarb increased to 48. Bicarb drip discontinued. Potassium is noted to be high. One dose of Kayexalate ordered 06/25: Patient remains intubated and mechanically ventilated sedated on pressors on assist control and tidal volume of 400 FiO2 PEEP of 20. Respirations of 14. Patient continues to remain on propofol and Pneumovax and fentanyl. The bicarb drip has been discontinued. Today's chest x-ray shows bilateral subcutaneous emphysema bilateral patchy infiltrates they're similar to the prior exam. Patient continues to have bilateral chest tubes. A 14 Angiocath was inserted into his neck to help relieve subcutaneous emphysema. Patient remains on internal feeding. WCC 60.4, hemoglobin 12.1, platelets 159, potassium 5.1, BUN 48, creatinine 0.63. ABG pH 7.38, pCO2 87, pO2 61, HCO3 51, ABG O2 sat 91. REVIEW OF SYSTEMS Could not be obtained PHYSICAL EXAMINATION Physical exam deferred due to positive Covid 19 and intubation. Gen: This is a 55-year-old male. He is resting in ICU bed appears to be comfortable. Facial swelling noted. No respiratory distress noted. HEENT: Head is atraumatic, normocephalic. NECK: Subcutaneous emphysema. chest : Chest tube noted with minimal air leak noted on the right chest tube no air leak noted on the left chest tube ASSESSMENT AND PLAN 1. Acute hypoxic respiratory failure secondary to Covid 19 pneumonia requiring intubation and mechanical ventilation on 06/19. Patient has been seen by pulmonary medicine status post Convalescent plasma and Tocilizumab 1 dose. Continue dexamethasone 6 mg IV every 24 hours, Lovenox 40 mg subcu twice daily, vitamins, cefepime 2 g IV piggyback every 8 hours. Patient is off vasopressors. Continue propofol, fentanyl, Precedex, Nimbex 2. Elevated inflammatory markers secondary to Covid 19. Continue to monitor. Downtrending 3. Mild hyponatremia. Continue IV fluids. 4. Elevated d-dimer. Acute pulmonary embolism has been ruled out by CTA. 5. Lymphocytopenia secondary to Covid 19. 6. Thrush. Neck: Is on hold 7. Subcutaneous emphysema and pneumomediastinum, stable WITH small PNEUMOTHORAX Status post bilateral chest tube insertion on continuous wall suction with mild air leak on the right chest tube. Monitor for resolution of subcutaneous emphysema 8. Thrombocytopenia secondary to Covid. Continue to monitor. 9. Metabolic acidosis. Currently have metabolic alkalosis bicarb drip held 10. Hyperkalemia - 1 dose of Kayexalate given 11. DVT prophylaxis. Lovenox. 12 GI prophylaxis. Protonix daily. Prognosis is guarded. Impression and plan of care have been directed as dictated by the signing physician. Maira Resendiz nurse practitioner acting as scribe for signing physician. Objective - Vital Signs Vital signs: Vital Signs Temp 99.9 F H 06/25/20 04:00 Pulse 115 H 06/25/20 10:30 Resp 34 H 06/25/20 10:30 BP 139/82 06/25/20 10:30 Pulse Ox 90 L 06/25/20 10:30 Intake & Output 06/24/20 06/25/20 06/25/20 18:59 06:59 18:59 Intake Total 5351.753 8423.133 770.118 Output Total 1190 845 270 Balance 655.731 9303.133 500.118 Weight 76.5 kg 72 kg Intake: IV 739 1020 306 0.9 140 20 Cefepime 2 gm In Sodium 200 100 Chloride 0.9% 100 ml @ 25 mls/hr IVPB Q8HR [facility] Rx# :[id number] Dextrose 5% in Water 1, 125 500 200 000 ml @ 25 mls/hr IV . Q24H [facility] with Sodium Bicarb (1 Meq/ml) 150 ml Rx#:[id number] Vancomycin 1,500 mg In 250 500 Sodium Chloride 0.9% 250 ml @ 125 mls/hr IVPB Q8H [facility] Rx#:[id number] pressure bag 24 6 Intake, IV Titration 719.583 776.133 352.118 Amount Cisatracurium 200 mg In 51.943 153.67 Sodium Chloride 0.9% 180 ml @ 1 MCG/KG/MIN 3.81 mls/hr IV .Q24H [facility] Rx#: [id number] Clevidipine Butyrate 25 78.833 128.166 14.133 mg In Empty Bag 1 bag @ 1 MG/HR 2 mls/hr IV .Q24H [facility] Rx#:[id number] fentaNYL (PF). 1,000 mcg 189.548 247.967 93.663 In Sodium Chloride 0.9% 80 ml @ Per Protocol IV . Q0M [facility] Rx#:[id number] propofoL 1,000 mg In 399.259 400 90.652 Empty Bag 1 bag @ Titrate IV .Q0M [facility] Rx#: [id number] Tube Feeding 274 335 112 Other 90 90 Output: Chest Tube Drainage 100 Chest Tube Left 25 Chest Tube Right 75 Urine 1090 845 270 Other: Voiding Method Indwelling Catheter Indwelling Catheter ABP, PAP, CO, CI - Last Documented Arterial Blood Pressure 121/65 - Labs CBC & Chem 7: 06/25/20 04:06 06/25/20 04:06 Labs: Abnormal Lab Results - Last 24 Hours (Table) 06/24/20 06/24/20 06/24/20 Range/Units 11:56 17:58 18:11 WBC (3.8-10.6) k/uL RBC (4.30-5.90) m/uL Hgb (13.0-17.5) gm/dL Hct (39.0-53.0) % Neutrophils # (1.3-7.7) k/uL Lymphocytes # (1.0-4.8) k/uL D-Dimer (<0.60) mg/L FEU ABG pCO2 (35-45) mmHg ABG pO2 (83-108) mmHg ABG HCO3 (21-25) mmol/L ABG Total CO2 (19-24) mmol/L ABG O2 Saturation (94-97) % Potassium 6.1 H* (3.5-5.1) mmol/L Carbon Dioxide (22-30) mmol/L BUN (9-20) mg/dL Creatinine (0.66-1.25) mg/dL Glucose (74-99) mg/dL POC Glucose (mg/dL) 178 H 170 H (75-99) mg/dL ALT (4-49) U/L Alkaline Phosphatase (38-126) U/L Lactate Dehydrogenase (313-618) U/L C-Reactive Protein (<1.0) mg/dL Total Protein (6.3-8.2) g/dL Albumin (3.5-5.0) g/dL 06/24/20 06/25/20 06/25/20 Range/Units 23:50 04:06 04:06 WBC 16.4 H (3.8-10.6) k/uL RBC 3.90 L (4.30-5.90) m/uL Hgb 12.1 L (13.0-17.5) gm/dL Hct 37.3 L (39.0-53.0) % Neutrophils # 14.7 H (1.3-7.7) k/uL Lymphocytes # 0.8 L (1.0-4.8) k/uL D-Dimer (<0.60) mg/L FEU ABG pCO2 (35-45) mmHg ABG pO2 (83-108) mmHg ABG HCO3 (21-25) mmol/L ABG Total CO2 (19-24) mmol/L ABG O2 Saturation (94-97) % Potassium (3.5-5.1) mmol/L Carbon Dioxide 52 H* (22-30) mmol/L BUN 48 H (9-20) mg/dL Creatinine 0.63 L (0.66-1.25) mg/dL Glucose 146 H (74-99) mg/dL POC Glucose (mg/dL) 155 H (75-99) mg/dL ALT 87 H (4-49) U/L Alkaline Phosphatase 214 H (38-126) U/L Lactate Dehydrogenase 2310 H (313-618) U/L C-Reactive Protein 4.9 H (<1.0) mg/dL Total Protein 5.3 L (6.3-8.2) g/dL Albumin 2.8 L (3.5-5.0) g/dL 06/25/20 06/25/20 06/25/20 Range/Units 04:06 04:40 05:43 WBC (3.8-10.6) k/uL RBC (4.30-5.90) m/uL Hgb (13.0-17.5) gm/dL Hct (39.0-53.0) % Neutrophils # (1.3-7.7) k/uL Lymphocytes # (1.0-4.8) k/uL D-Dimer 2.72 H (<0.60) mg/L FEU ABG pCO2 87 H* (35-45) mmHg ABG pO2 61 L (83-108) mmHg ABG HCO3 51 H* (21-25) mmol/L ABG Total CO2 54 H (19-24) mmol/L ABG O2 Saturation 91.1 L (94-97) % Potassium (3.5-5.1) mmol/L Carbon Dioxide (22-30) mmol/L BUN (9-20) mg/dL Creatinine (0.66-1.25) mg/dL Glucose (74-99) mg/dL POC Glucose (mg/dL) 136 H (75-99) mg/dL ALT (4-49) U/L Alkaline Phosphatase (38-126) U/L Lactate Dehydrogenase (313-618) U/L C-Reactive Protein (<1.0) mg/dL Total Protein (6.3-8.2) g/dL Albumin (3.5-5.0) g/dL Microbiology - Last 24 Hours (Table) 06/21/20 21:50 Gram Stain - Final Sputum Sputum Culture - Final Staphylococcus aureus Moraxella(branhamella) catarra
[2020-06-25 12:08] LABS: Glucose,Whole Blood 159 mg/dL (75-99)
[2020-06-25 17:46] LABS: Glucose,Whole Blood 200 mg/dL (75-99)
--- NOTE | 2020-06-25 18:18 | PN ---
PROGRESS NOTE DATE OF SERVICE: 06/25/2020 REASON FOR FOLLOWUP: Pneumonia. INTERVAL HISTORY: Patient did have a low-grade fever of 100.1 around midnight and 99.9 around 4:00 am. The patient is currently hemodynamically stable. The patient remains to be intubated on the vent. FiO2 is currently 60%. No other changes reported by nursing staff. PHYSICAL EXAMINATION: VITAL SIGNS: Blood pressure 140/86 with a pulse of 114, temperature 99.9, he is 91% on 60% FIO2. GENERAL DESCRIPTION: Patient is a middle-aged male intubated on the vent. HEENT: Periorbital swelling has decreased. Patient is orally intubated. LUNGS: Unlabored breathing, decreased intensity of breath sounds, no wheeze. HEART: S1-S2, regular rate and rhythm. ABDOMEN: Soft, no tenderness. LABS: Hemoglobin is 12.1, white count 16.4, BUN of 48, creatinine 0.63. Sputum is MSSA and Moraxella. DIAGNOSTIC IMPRESSION AND PLAN: Patient with acute respiratory failure which is multifactorial in this patient who does have a component of COVID-19 pneumonia now with evidence of secondary bacterial pneumonia. Sputum with MSSA and Moraxella should be covered with cefepime. Vanco will be discontinued. Condition will be monitored closely. MMODL / IJN: [id number] /
[2020-06-26 00:29] LABS: Glucose,Whole Blood 150 mg/dL (75-99)
[2020-06-26] MEDS: ARTIFICIAL TEARS-HYPROMELLOSE DROPS 15 ML BTL BOTH EYES SCH ×6 (00:33→21:03)
[2020-06-26] MEDS: fentaNYL (PF). 1,000 MCG in SODIUM CHLORIDE 0.9% 80 ML IV SCH ×5 (00:34→19:41)
[2020-06-26] MEDS: CEFEPIME 2 GM in SODIUM CHLORIDE 0.9% 100 ML IVPB SCH ×3 (00:34→17:54)
[2020-06-26] MEDS: INSULIN ASPART (NovoLOG) 100 UNIT/ML VIAL SQ SCH ×4 (00:34→17:54)
[2020-06-26] MEDS: DEXTROSE 5% IN WATER 1,000 ML with SODIUM BICARB (1 MEQ/ML) 150 ML IV SCH (00:36)
[2020-06-26] MEDS ORDERED: VANCOMYCIN TROUGH DUE 1 EACH MISC MISCELLANE ONE (02:00)
[2020-06-26] MEDS: CISATRACURIUM 200 MG in SODIUM CHLORIDE 0.9% 180 ML IV SCH ×2 (02:12→14:48)
[2020-06-26] MEDS: CLEVIDIPINE BUTYRATE 25 MG in EMPTY BAG 1 BAG IV SCH ×3 (02:13→21:08)
[2020-06-26 02:52] LABS: ALT 70 U/L (4-49); AST 50 U/L (17-59); African American GFR (CKD) >90 (>60 ml/min/1.73 sqM); Albumin 2.8 g/dL (3.5-5.0); Alkaline Phosphatase 171 U/L (38-126); Basophils # (A) 0.1 k/uL (0-0.2); Basophils % (A) 1 %; Blood Urea Nitrogen 48 mg/dL (9-20); C Reactive Protein 6.1 mg/dL (<1.0); Calcium 8.7 mg/dL (8.4-10.2); Chloride 100 mmol/L (98-107); Eosinophils # (A) 0.2 k/uL (0-0.7); Eosinophils % (A) 1 %; Glucose 143 mg/dL (74-99); HCT 36.2 % (39.0-53.0); HGB 11.6 gm/dL (13.0-17.5); Hypochromasia Slight; Lymphocytes % (A) 6 %; MCH 30.5 pg (25.0-35.0); MCHC 31.9 g/dL (31.0-37.0); MCV 95.5 fL (80.0-100.0); Mean Platelet Volume 9.9; Monocytes # (A) 0.4 k/uL (0-1.0); Monocytes % (A) 3 %; Neutrophils # (A) 15.2 k/uL (1.3-7.7); Neutrophils % (A) 89 %; Non-African American GFR(CKD) >90 (>60 ml/min/1.73 sqM); Platelet Count 156 k/uL (150-450); Potassium 5.3 mmol/L (3.5-5.1); RBC 3.79 m/uL (4.30-5.90); RDW 14.9 % (11.5-15.5); Sodium 146 mmol/L (137-145); Total Bilirubin 0.6 mg/dL (0.2-1.3); Total Protein 5.3 g/dL (6.3-8.2)
[2020-06-26 02:56] LABS: Anion Gap -4 mmol/L
[2020-06-26 03:02] LABS: Carbon Dioxide 50 mmol/L (22-30)
[2020-06-26 03:03] LABS: LDH 2490 U/L (313-618)
[2020-06-26 05:08] LABS: ABG Base Excess 25.8 mmol/L; ABG Oxygen Saturation 92.5 % (94-97); ABG PH 7.37 (7.35-7.45); ABG PO2 66 mmHg (83-108); ABG TCO2 54 mmol/L (19-24); Allen Test Performed? Yes
[2020-06-26 05:11] LABS: ABG HCO3 51 mmol/L (21-25); ABG PCO2 88 mmHg (35-45)
[2020-06-26 05:52] LABS: Glucose,Whole Blood 157 mg/dL (75-99)
[2020-06-26 06:22] LABS: Glucose,Whole Blood 157 mg/dL (75-99)
--- NOTE | 2020-06-26 07:22 | XR ---
EXAMINATION TYPE: XR chest 1V portable DATE OF EXAM: 06/26/2020 COMPARISON: Chest x-ray 06/25/2020 HISTORY: Intubated TECHNIQUE: Single frontal view of the chest is obtained. FINDINGS: Findings are similar to prior exam. Minimal right apical pneumothorax is present. Subcutan eous emphysema is extensive. Endotracheal tube, orogastric tube, bilateral chest tubes, right-sided P ICC line are all again noted. Bilateral airspace disease is present. No evident effusion. Cardiac med iastinal silhouette is unchanged. There is pneumomediastinum. IMPRESSION: Correlate for pneumonia.
--- NOTE | 2020-06-26 08:03 | P.PN ---
Subjective Progress Note Date: 06/26/20 Principal diagnosis: Acute COVID-19 pneumonia, pneumomediastinum, extensive subcutaneous emphysema, acute hypoxic respiratory failure, elevated inflammatory markers secondary to Co vid-19, leukocytosis, thrombocytopenia, hypotension post intubation, respiratory acidosis POD #6 placement of bilateral chest tubes by Dr. Dominique The patient remains laying in bed in the intensive care unit, remains intubated, sedated, and paralyzed. Bilateral chest tubes remain in place, intermittent air leak again seen in the right chest tube, no air leaks present in left chest tube, minimal drainage, subcutaneous emphysema remains present, appears less than yesterday. Ventilator changes continued to be made by pulmonology, currently on 60% FiO2 and 20 PEEP. WBC 17, D-dimer 3.67, CRP 6.1, LDH 2490. Tmax 99.9F last 24 hours. Suputum culture positive for MSSA, moraxella, remains on IV cefepime, vanco dc'd by ID. Remains sinus tach off pressors, currently on cleveprex. Also remains on fentanyl, propofol and nimbex. Objective - Vital Signs Vital signs: Vital Signs Temp 98.9 F 06/26/20 04:00 Pulse 110 H 06/26/20 07:00 Resp 34 H 06/26/20 07:00 BP 127/80 06/26/20 07:00 Pulse Ox 91 L 06/26/20 07:00 Intake & Output 06/25/20 06/26/20 06/26/20 18:59 06:59 18:59 Intake Total 2276.739 1852.529 78 Output Total 1085 820 40 Balance 5898.570 1704.529 38 Weight 70 kg Intake: IV 1100 650 50 Cefepime 2 gm In Sodium 200 100 Chloride 0.9% 100 ml @ 25 mls/hr IVPB Q8HR [facility] Rx# :[id number] Dextrose 5% in Water 1, 650 550 50 000 ml @ 25 mls/hr IV . Q24H [facility] with Sodium Bicarb (1 Meq/ml) 150 ml Rx#:[id number] Vancomycin 1,500 mg In 250 Sodium Chloride 0.9% 250 ml @ 125 mls/hr IVPB Q8H [facility] Rx#:[id number] Intake, IV Titration 840.739 804.529 Amount Cisatracurium 200 mg In 206.248 116.205 Sodium Chloride 0.9% 180 ml @ 1 MCG/KG/MIN 3.81 mls/hr IV .Q24H [facility] Rx#: [id number] Clevidipine Butyrate 25 64.133 49.2 mg In Empty Bag 1 bag @ 1 MG/HR 2 mls/hr IV .Q24H [facility] Rx#:[id number] fentaNYL (PF). 1,000 mcg 179.706 284.785 In Sodium Chloride 0.9% 80 ml @ Per Protocol IV . Q0M [facility] Rx#:[id number] propofoL 1,000 mg In 390.652 354.339 Empty Bag 1 bag @ Titrate IV .Q0M [facility] Rx#: [id number] Tube Feeding 336 308 28 Other 90 Output: Chest Tube Drainage 100 15 Chest Tube Left 30 5 Chest Tube Right 70 10 Urine 985 805 40 Other: Voiding Method Indwelling Catheter Indwelling Catheter ABP, PAP, CO, CI - Last Documented Arterial Blood Pressure 121/65 - Exam CONSTITUTIONAL: Remains sedated and paralyzed on mechanical ventilation EYES: Subcutaneous emphysema significantly decreased over both eyes ENT: Moist mucous membranes without oral lesions present NECK: No masses, no bruits, trachea midline RESPIRATORY: Lungs sounds diminished to auscultation bilaterally. Currently on mechanical ventilation, assist control mode, FiO2 60%, PEEP 20, tidal volume 400, respiratory rate 34. ABGs this am on those settings 7.37/88/66/51/92%/BE 25.8. 8.0 ET tube present, 25 at the lip. Subcutaneous emphysema present to the chest, arms, neck, face, about the same as yesterday. CARDIOVASCULAR: S1, S2 present. Tachycardic but regular rate and rhythm, sinus tach on telemetry with heart rate in the 120s. Palpable peripheral pulses bilaterally. SCDs present. GASTROINTESTINAL: Abdomen soft, nontender, nondistended without masses or organomegaly noted. Active bowel sounds present 4 quadrants. OG tube present, tube feeding infusing at 28 ml/hr. GENITOURINARY: Indwelling catheter present draining clear, yellow urine. Urine output 50-75 mL per hour INTEGUMENTARY: Skin is warm and slightly moist NEUROLOGIC: Unable to assess as patient is currently receiving IV paralytic INVASIVE LINES/TUBES: Right PICC line present. Right and left pleural chest tubes present, intermittent air leak again noted in right chest tube with exhalation, no air leak present in left chest tube, minimal drainage. - Allied health notes Allied health notes reviewed: nursing - Labs CBC & Chem 7: 06/26/20 02:13 06/26/20 02:13 Labs: Abnormal Lab Results - Last 24 Hours (Table) 06/25/20 06/25/20 06/26/20 Range/Units 12:06 17:44 00:28 WBC (3.8-10.6) k/uL RBC (4.30-5.90) m/uL Hgb (13.0-17.5) gm/dL Hct (39.0-53.0) % Neutrophils # (1.3-7.7) k/uL D-Dimer (<0.60) mg/L FEU ABG pCO2 (35-45) mmHg ABG pO2 (83-108) mmHg ABG HCO3 (21-25) mmol/L ABG Total CO2 (19-24) mmol/L ABG O2 Saturation (94-97) % Sodium (137-145) mmol/L Potassium (3.5-5.1) mmol/L Carbon Dioxide (22-30) mmol/L BUN (9-20) mg/dL Creatinine (0.66-1.25) mg/dL Glucose (74-99) mg/dL POC Glucose (mg/dL) 159 H 200 H 150 H (75-99) mg/dL ALT (4-49) U/L Alkaline Phosphatase (38-126) U/L Lactate Dehydrogenase (313-618) U/L C-Reactive Protein (<1.0) mg/dL Total Protein (6.3-8.2) g/dL Albumin (3.5-5.0) g/dL 06/26/20 06/26/20 06/26/20 Range/Units 02:13 02:13 02:13 WBC 17.0 H (3.8-10.6) k/uL RBC 3.79 L (4.30-5.90) m/uL Hgb 11.6 L (13.0-17.5) gm/dL Hct 36.2 L (39.0-53.0) % Neutrophils # 15.2 H (1.3-7.7) k/uL D-Dimer 3.67 H (<0.60) mg/L FEU ABG pCO2 (35-45) mmHg ABG pO2 (83-108) mmHg ABG HCO3 (21-25) mmol/L ABG Total CO2 (19-24) mmol/L ABG O2 Saturation (94-97) % Sodium 146 H (137-145) mmol/L Potassium 5.3 H (3.5-5.1) mmol/L Carbon Dioxide 50 H* (22-30) mmol/L BUN 48 H (9-20) mg/dL Creatinine 0.64 L (0.66-1.25) mg/dL Glucose 143 H (74-99) mg/dL POC Glucose (mg/dL) (75-99) mg/dL ALT 70 H (4-49) U/L Alkaline Phosphatase 171 H (38-126) U/L Lactate Dehydrogenase 2490 H (313-618) U/L C-Reactive Protein 6.1 H (<1.0) mg/dL Total Protein 5.3 L (6.3-8.2) g/dL Albumin 2.8 L (3.5-5.0) g/dL 06/26/20 06/26/20 06/26/20 Range/Units 05:02 05:50 06:20 WBC (3.8-10.6) k/uL RBC (4.30-5.90) m/uL Hgb (13.0-17.5) gm/dL Hct (39.0-53.0) % Neutrophils # (1.3-7.7) k/uL D-Dimer (<0.60) mg/L FEU ABG pCO2 88 H* (35-45) mmHg ABG pO2 66 L (83-108) mmHg ABG HCO3 51 H* (21-25) mmol/L ABG Total CO2 54 H (19-24) mmol/L ABG O2 Saturation 92.5 L (94-97) % Sodium (137-145) mmol/L Potassium (3.5-5.1) mmol/L Carbon Dioxide (22-30) mmol/L BUN (9-20) mg/dL Creatinine (0.66-1.25) mg/dL Glucose (74-99) mg/dL POC Glucose (mg/dL) 157 H 157 H (75-99) mg/dL ALT (4-49) U/L Alkaline Phosphatase (38-126) U/L Lactate Dehydrogenase (313-618) U/L C-Reactive Protein (<1.0) mg/dL Total Protein (6.3-8.2) g/dL Albumin (3.5-5.0) g/dL Microbiology - Last 24 Hours (Table) 06/21/20 21:50 Gram Stain - Final Sputum Sputum Culture - Final Staphylococcus aureus Moraxella(branhamella) catarra - Imaging and Cardiology Chest x-ray: report reviewed, image reviewed Assessment and Plan Assessment: 1. Acute COVID-19 pneumonia 2. Pneumomediastinum, extensive subcutaneous emphysema, S/P placement of right and left pleural chest tubes by pulmonology, S/P placement of 14g angiocath to left neck 3. Acute hypoxic respiratory failure, remains on mechanical ventilation 4. Elevated inflammatory markers secondary to Covid 5. Leukocytosis, febrile, sputum culture from 06/21/20 growing MSSA and morexella 6. Thrombocytopenia, resolved 6. Hypotension post intubation, currently off pressors and hypertensive requiring cleviprex 7. Respiratory acidosis Plan: 1. Continue both chest tubes to continuous wall suction, monitor for resolution of subcutaneous emphysema, airleak. No plans to remove chest tube anytime soon 2. Mechanical ventilation, sedation, paralytic, antibiotics, covid managment per administrative manager 3. No surgery is warranted 4. GI/DVT prophylaxis 5. Will monitor daily CXR 6. Patient remains critically ill with poor prognosis Time with Patient: Greater than 30
[2020-06-26] MEDS: CHOLECALCIFEROL 25 MCG (1000 IU) TABLET PO SCH (08:27)
[2020-06-26] MEDS: ASCORBIC ACID 500 MG TAB PO SCH (08:27)
[2020-06-26] MEDS: PANTOPRAZOLE 40 MG/10 ML VIAL IVP SCH (08:27)
[2020-06-26] MEDS: LACTULOSE 20 GM/30 ML CUP PO SCH ×2 (08:27→21:03)
[2020-06-26] MEDS: CHLORHEXIDINE GLUCONATE 15 ML CUP MUCOUS MEM SCH ×2 (08:27→21:03)
[2020-06-26] MEDS: ZINC SULFATE 220 MG CAP PO SCH (08:28)
[2020-06-26] MEDS: DEXAMETHASONE SOD PHOSPHATE 10 MG/ML 1 ML VIAL IV SCH (08:28)
[2020-06-26] MEDS: ENOXAPARIN 40 MG/0.4 ML SYRINGE SQ SCH (08:28)
--- NOTE | 2020-06-26 10:13 | P.PN ---
Subjective Progress Note Date: 06/26/20 This is a 55-year-old male patient of Dr. Maxwell Alexander with significant past medical history. Patient states he started having symptoms on June 01 and was diagnosed with COVID-19 on June 08. Patient symptoms or body aches and fatigue as well as cough with white sputum production, increasing shortness of breath and measured pulse ox at home which worsened. He complains of headache chills and nausea. Patient presented to [facility] emergency center for evaluation. Patient was afebrile, heart rate 101, blood pressure 114/75, pulse ox 86% on room air. WBC 6.4, hemoglobin 16.2, platelet count 153. D-dimer 0.84. AST 106, ALT 44, alkaline phosphatase 57, LDH 2547. CRP 150. Sodium 129, potassium 4.6, chloride 97, CO2 23, BUN 12 and creatinine 0.84. Blood sugar 114. Chest x-ray reveals extensive pulmonary infiltrates related to pneumonia and ARDS. CTA of the chest reveals no pulmonary embolism. Patchy areas of nodular consolidations in the bilateral lower lobes with groundglass consolidation of the peripheral of the bilateral upper lobes consistent with multifocal infection compatible with Covid pneumonia. No pleural effusions or pneumothorax. Patient has been seen by pulmonary medicine is not a candidate for Remdesivir. Convalescent plasma has been ordered as well as Tocilizumab 1 dose. Patient is currently pulse ox 95% on 15 L nonrebreather. 06/15: Repeat chest x-ray reveals worsening infiltrates. Patient is currently on nonrebreather and nasal cannula with pulse ox of 89%. Patient states that he is not sleeping because of coughing. He continues to have cough, shortness of breath. Noted to be tachypneic. Patient states he is eating okay. Melatonin, Flonase and Tessalon Perles added. Patient has been afebrile, heart rate 87, respiratory rate 32, blood pressure 112/70. Repeat blood work reveals WBC 11.4, hemoglobin 15.4, platelet count 208. D-dimer 0.95. Sodium 136 other electrolytes and renal function normal. Blood sugar 118. AST 96, ALT 67, alkaline phosphatase 70. LDH 2884. C-reactive protein 59.4. 06/16: Patient's pulse ox is 90-92% on high flow nasal cannula at 13 L along with 100% nonrebreather. Patient was seen by Dr. Kern plan is to try and wean off 100% oxygen. Patient states that his breathing is stable today. He continues to have shortness of breath with minimal activity and cough. Patient started on mycelex noemi for thrush. He has been afebrile, heart rate 80, blood pressure 114/69. Repeat chest x-ray reveals improving bilateral lung infiltrates. Patient is continued on dexamethasone, Lovenox and vitamin supplements. 06/17: Yesterday afternoon, received call the patient had subcutaneous emphysema that was new and stat chest x-ray was ordered. This revealed interval development of subcutaneous emphysema within the bilateral neck. Some pneumo mediastinum may be present as the source. Pneumothorax is identified. This was reviewed by Dr. Kern at the time. Last evening at 2200, A-Team was called for puffiness of the neck and shoulder skin. Repeat chest x-ray revealed prominent interval increase in subcutaneous emphysema pattern. Patient was transferred to the intensive care unit. Patient has been seen in the intensive care unit today. He remains on 15 L high flow nasal cannula in addition to 100% nonrebreather facemask. D-dimer is 17.6, LDH 533. Patient remains on Decadron, Lovenox and supplements. Promethazine was added for cough suppression. Subcutaneous emphysema is stable. 06/18 patient evaluated bedside has worsening subcutaneous emphysema. Does appear anxious on examination. He is on Xanax to 0.25 mg twice a day with no improvement in patient's and slightly. We'll repeat chest x-ray does suggest tiny pneumothorax in addition to subcutaneous emphysema. Patient is currently maintaining oxygen saturation on interval 60 L with FiO2 of 90% with a nonreb reather 100%. Minimum exertion is causing desaturation. Patient appears to have worsening inflammation markers including worsening LDH and liver enzymes. Pulmonary care for management of the Covid. Continues to keep patient on dexamethasone, convalescent plasma. Patient is not a candidate for remdesivir. We will start patient on Lexapro 10 mg daily at bedtime to help with anxiety. IV fluids switch to D5NS as patient is not eating being on mask and is hungry. 06/19 patient evaluated bedside has worsening subcutaneous emphysema, facial swelling and pneumomediastinum. Patient is alert and keeping saturation 90-92% on BiPAP. He appears anxious and is breathing at 26 respiratory rate per minute. Blood pressure 1:30/74 heart rate of 113.chest x-rays consistent with bilateral subcutaneous emphysema and pneumomediastinum any apical pneumothorax dizzy and chest tube at this point. On evaluation patient's labs patient's leukocytosis and 19 sodium stable at 1:30, creatinine 0.67 and ferritin is 3144 elevated liver enzymes early at 7846 increased from prior low albumin. patient continues to have increased in size the despite initiation of Remeron will increase Remeron to 30 mg at bedtime Xanax increased to 0.5 twice a day from 0.25. Ativan can be given if patient is unable to tolerate oral medication. Plan to start patient on TPN tomorrow. Low sodium could be a results of D5W 06/20: Repeat blood work reveals WBC 29.6, hemoglobin 17, platelet count 124. D- dimer greater than 35. Sodium 132, potassium 5.4, chloride 95, CO2 31, BUN 28 creatinine 0.75. Blood sugar 162. AST 131, ALT 92, alkaline phosphatase 310. LDH 9901. CK 501. C-reactive protein 3.7. Patient became more hypoxic during the night with pulse ox down to the low 70s with mental status changes. Patient was intubated and placed on mechanical ventilation. Tidal volume 400, FiO2 of 75% and PEEP of 18. He is on propofol, Nimbex, levo fed was started and he is status post 2 L of IV fluid. He has on a fentanyl drip. Patient has extensive subcutaneous emphysema. Remeron and clotrimazole discontinued 06/21: Patient remains intubated and on mechanical ventilation. Tidal volume 400, FiO2 decreased from 85-80% this morning, PEEP 16. Patient had bilateral chest tubes placed for pneumothorax bilaterally. This was done last evening. Patient is currently on Nimbex, fentanyl, levo fed. He is on tube feedings at goal. Temperature max 100.2, heart rate 107, respiratory rate 33, blood pressu re 118/62, pulse ox 90% with goal to keep above 85%. Repeat blood work reveals WBC 15.9, hemoglobin 14.6, platelet count 96. Sodium 137, potassium 5.1, chloride 100, CO2 39, BUN 26 and creatinine 0.69. Phosphorus 7.3. Magnesium 3.0. Total bilirubin 0.7, AST 59, ALT 61, alkaline phosphatase 190. D-dimer 14.6. LDH 3891. CK 902. C-reactive protein 4.1. Repeat chest x-ray reveals persistent severe bilateral subcutaneous emphysema limiting assessment. Underlying groundglass changes persist. Bilateral chest tubes. Right apical pneumothorax smaller 6 mm versus 2 cm previously. Left apical pneumothorax no longer seen. Better demonstrated pneumomediastinum though suspected to have decreased compared to prior exam. Patient does have less subcutaneous emphysema. 06/22: he remains intubated and on mechanical ventilation with tidal volume 400, FiO2 was 100% this morning and decrease to 70, PEEP is 20. Patient is on propofol and fentanyl as well as Nimbex and bicarb drip. He is not on norepinephrine. Patient is on tube feedings at goal. He remains with bilateral chest tubes in place, no air leak. He has been afebrile, heart rate 108, respiratory rate 34, a pressure 108/61, pulse ox is 90%. Repeat blood work reveals WBC 20, hemoglobin 13.7. D-dimer 10.74. CO2 42, BUN 31 creatinine 0.63. Blood sugars running between 130s to 177. Repeat chest x-ray reveals stable findings. patient remains intubated with a tidal volume of 400 FiO2 of 65% PEEP 20. Patient continues to remain sedated and paralyzed on propofol, fentanyl Precedex and Pneumovax. Continues to have chest tubes with slight air leaks noted. Chest x-ray continues to remain the same with bilateral patchy infiltrate and subcutaneous emphysema. Vitals this morning suggests tachycardia 120 respirat ory rate 34 saturating 90% on 65% FiO2 blood pressure 128/71 labs suggestive leukocytosis of 17.6 hemoglobin 12.9 ABG drawn at this morning suggests a pH of 7.3 pCO2 86 pO2 77 bicarb 50. Patient's LDH is 12,748. CRP 7. . 06/24 patient remains intubated and mechanically ventilated sedated and paralyzed on assist control with a tidal volume of 400 FiO2 60% PEEP on 20 respiratory rate of 14. ABG done this morning suggests a pO2 of 75 pCO2 83. 7.39. Patient continues to remain on propofol and Pneumovax and fentanyl. The bicarb drip discontinued. 10 chest x-ray shows bilateral subcutaneous emphysema with bilateral patchy infiltrates. Concern for small right apical pneumothorax measuring 1.2 cm versus 9 mm previously. Patient continues to have bilateral chest tubes, minimally leak noted in the right-sided chest tube. No air leak on the left-sided chest tube. Patient remains on enteral feeding. In assessment of patient's blood work slight improvement in CRP noted at 4.7H improved to 2733 liver enzymes continue to rise with AST of 90 ALT 105 alkaline phosphatase 2:30. Bicarb increased to 48. Bicarb drip discontinued. Potassium is noted to be high. One dose of Kayexalate ordered 06/25: Patient remains intubated and mechanically ventilated sedated on pressors on assist control and tidal volume of 400 FiO2 PEEP of 20. Respirations of 14. Patient continues to remain on propofol and Pneumovax and fentanyl. The bicarb drip has been discontinued. Today's chest x-ray shows bilateral subcutaneous emphysema bilateral patchy infiltrates they're similar to the prior exam. Patient continues to have bilateral chest tubes. A 14 Angiocath was inserted into his neck to help relieve subcutaneous emphysema. Patient remains on enternal feeding. WCC 60.4, hemoglobin 12.1, platelets 159, potassium 5.1, BUN 48, creatinine 0.63. ABG pH 7.38, pCO2 87, pO2 61, HCO3 51, ABG O2 sat 91. /: Maintained intubated and mechanically ventilated sedated and paralyzed on assist control with FiO2 on 65% and a PEEP of 18. WBC 17, hemoglobin 11.6, potassium 5.3, BUN 48, creatinine 0.64 d-dimer 3.67,. Temperature 99.9. Patient continues to remain on propofol and Pneumovax and fentanyl. Chest x-ray findings similar to prior exam. Angiocath to the left subclavian to help with subcutaneous emphysema. Substance emphysema is improved compared to yesterday with less edema to face and neck. Patient remains on enternal feeding. Bilateral chest tubes in place and draining. REVIEW OF SYSTEMS Could not be obtained PHYSICAL EXAMINATION Physical exam deferred due to positive Covid 19 and intubation. Gen: This is a 55-year-old male. He is resting in ICU bed appears to be comfortable. Facial swelling noted. No respiratory distress noted. HEENT: Head is atraumatic, normocephalic. NECK: Subcutaneous emphysema. chest : Chest tube noted with minimal air leak noted on the right chest tube no air leak noted on the left chest tube ASSESSMENT AND PLAN 1. Acute hypoxic respiratory failure secondary to Covid 19 pneumonia requiring intubation and mechanical ventilation on 06/19. Patient has been seen by pulmonary medicine status post Convalescent plasma and Tocilizumab 1 dose. C ontinue dexamethasone 6 mg IV every 24 hours, Lovenox 40 mg subcu twice daily, vitamins, cefepime 2 g IV piggyback every 8 hours. Patient is off vasopressors. Continue propofol, fentanyl, Precedex, Nimbex 2. Elevated inflammatory markers secondary to Covid 19. Continue to monitor. Downtrending 3. Mild hyponatremia. Continue IV fluids. 4. Elevated d-dimer. Acute pulmonary embolism has been ruled out by CTA. 5. Lymphocytopenia secondary to Covid 19. 6. Thrush. Neck: Is on hold 7. Subcutaneous emphysema and pneumomediastinum, stable WITH small PNEUMOTHORAX Status post bilateral chest tube insertion on continuous wall suction with mild air leak on the right chest tube. Monitor for resolution of subcutaneous emphysema 8. Thrombocytopenia secondary to Covid. Continue to monitor. 9. Metabolic acidosis. Currently have metabolic alkalosis bicarb drip held 10. Hyperkalemia - 1 dose of Kayexalate given 11. DVT prophylaxis. Lovenox. 12 GI prophylaxis. Protonix daily. Prognosis is guarded. Impression and plan of care have been directed as dictated by the signing physician. Maira Resendiz nurse practitioner acting as scribe for signing physician. Objective - Vital Signs Vital signs: Vital Signs Temp 100.8 F H 06/26/20 08:00 Pulse 110 H 06/26/20 09:00 Resp 34 H 06/26/20 09:00 BP 132/78 06/26/20 09:00 Pulse Ox 92 L 06/26/20 09:00 Intake & Output 06/25/20 06/26/20 06/26/20 18:59 06:59 18:59 Intake Total 2276.739 1852.529 355.867 Output Total 1085 820 194 Balance 8920.173 0914.529 161.867 Weight 70 kg Intake: IV 1100 650 250 Cefepime 2 gm In Sodium 200 100 100 Chloride 0.9% 100 ml @ 25 mls/hr IVPB Q8HR [facility] Rx# :[id number] Dextrose 5% in Water 1, 650 550 150 000 ml @ 25 mls/hr IV . Q24H [facility] with Sodium Bicarb (1 Meq/ml) 150 ml Rx#:[id number] Vancomycin 1,500 mg In 250 Sodium Chloride 0.9% 250 ml @ 125 mls/hr IVPB Q8H [facility] Rx#:[id number] Intake, IV Titration 840.739 804.529 49.867 Amount Cisatracurium 200 mg In 206.248 116.205 Sodium Chloride 0.9% 180 ml @ 1 MCG/KG/MIN 3.81 mls/hr IV .Q24H [facility] Rx#: [id number] Clevidipine Butyrate 25 64.133 49.2 49.867 mg In Empty Bag 1 bag @ 1 MG/HR 2 mls/hr IV .Q24H [facility] Rx#:[id number] fentaNYL (PF). 1,000 mcg 179.706 284.785 In Sodium Chloride 0.9% 80 ml @ Per Protocol IV . Q0M [facility] Rx#:[id number] propofoL 1,000 mg In 390.652 354.339 Empty Bag 1 bag @ Titrate IV .Q0M [facility] Rx#: [id number] Tube Feeding 336 308 56 Other 90 Output: Chest Tube Drainage 100 15 Chest Tube Left 30 5 Chest Tube Right 70 10 Urine 985 805 194 Other: Voiding Method Indwelling Catheter Indwelling Catheter ABP, PAP, CO, CI - Last Documented Arterial Blood Pressure 121/65 - Labs CBC & Chem 7: 06/26/20 02:13 06/26/20 02:13 Labs: Abnormal Lab Results - Last 24 Hours (Table) 06/25/20 06/25/20 06/26/20 Range/Units 12:06 17:44 00:28 WBC (3.8-10.6) k/uL RBC (4.30-5.90) m/uL Hgb (13.0-17.5) gm/dL Hct (39.0-53.0) % Neutrophils # (1.3-7.7) k/uL D-Dimer (<0.60) mg/L FEU ABG pCO2 (35-45) mmHg ABG pO2 (83-108) mmHg ABG HCO3 (21-25) mmol/L ABG Total CO2 (19-24) mmol/L ABG O2 Saturation (94-97) % Sodium (137-145) mmol/L Potassium (3.5-5.1) mmol/L Carbon Dioxide (22-30) mmol/L BUN (9-20) mg/dL Creatinine (0.66-1.25) mg/dL Glucose (74-99) mg/dL POC Glucose (mg/dL) 159 H 200 H 150 H (75-99) mg/dL ALT (4-49) U/L Alkaline Phosphatase (38-126) U/L Lactate Dehydrogenase (313-618) U/L C-Reactive Protein (<1.0) mg/dL Total Protein (6.3-8.2) g/dL Albumin (3.5-5.0) g/dL 06/26/20 06/26/20 06/26/20 Range/Units 02:13 02:13 02:13 WBC 17.0 H (3.8-10.6) k/uL RBC 3.79 L (4.30-5.90) m/uL Hgb 11.6 L (13.0-17.5) gm/dL Hct 36.2 L (39.0-53.0) % Neutrophils # 15.2 H (1.3-7.7) k/uL D-Dimer 3.67 H (<0.60) mg/L FEU ABG pCO2 (35-45) mmHg ABG pO2 (83-108) mmHg ABG HCO3 (21-25) mmol/L ABG Total CO2 (19-24) mmol/L ABG O2 Saturation (94-97) % Sodium 146 H (137-145) mmol/L Potassium 5.3 H (3.5-5.1) mmol/L Carbon Dioxide 50 H* (22-30) mmol/L BUN 48 H (9-20) mg/dL Creatinine 0.64 L (0.66-1.25) mg/dL Glucose 143 H (74-99) mg/dL POC Glucose (mg/dL) (75-99) mg/dL ALT 70 H (4-49) U/L Alkaline Phosphatase 171 H (38-126) U/L Lactate Dehydrogenase 2490 H (313-618) U/L C-Reactive Protein 6.1 H (<1.0) mg/dL Total Protein 5.3 L (6.3-8.2) g/dL Albumin 2.8 L (3.5-5.0) g/dL 06/26/20 06/26/20 06/26/20 Range/Units 05:02 05:50 06:20 WBC (3.8-10.6) k/uL RBC (4.30-5.90) m/uL Hgb (13.0-17.5) gm/dL Hct (39.0-53.0) % Neutrophils # (1.3-7.7) k/uL D-Dimer (<0.60) mg/L FEU ABG pCO2 88 H* (35-45) mmHg ABG pO2 66 L (83-108) mmHg ABG HCO3 51 H* (21-25) mmol/L ABG Total CO2 54 H (19-24) mmol/L ABG O2 Saturation 92.5 L (94-97) % Sodium (137-145) mmol/L Potassium (3.5-5.1) mmol/L Carbon Dioxide (22-30) mmol/L BUN (9-20) mg/dL Creatinine (0.66-1.25) mg/dL Glucose (74-99) mg/dL POC Glucose (mg/dL) 157 H 157 H (75-99) mg/dL ALT (4-49) U/L Alkaline Phosphatase (38-126) U/L Lactate Dehydrogenase (313-618) U/L C-Reactive Protein (<1.0) mg/dL Total Protein (6.3-8.2) g/dL Albumin (3.5-5.0) g/dL Microbiology - Last 24 Hours (Table) 06/21/20 21:50 Gram Stain - Final Sputum Sputum Culture - Final Staphylococcus aureus Moraxella(branhamella) catarra
[2020-06-26 11:27] LABS: Glucose,Whole Blood 161 mg/dL (75-99)
--- NOTE | 2020-06-26 11:36 | P.PN ---
Subjective Progress Note Date: 06/26/20 Principal diagnosis: Acute hypoxic failure secondary to COVID-19 pneumonia 06/20/2020, the patient is being seen for a follow-up. The patient is a case of COVID-19 related pneumonia [place] by pneumomediastinum and bilateral subcutaneous emphysema. Overnight, he was kept on a BiPAP and the patient progressively became more hypoxic. He was on a BiPAP pressure of 12/6 with an FiO2 of 100%. I increased him up to 14/10 and later on up to 16/12 and despite that the patient continued to be hypoxic and in fact his pulse ox dropped down to the low 70s and he became more hypoxic and altered and agitated. During the course of his treatment, the patient's anxiety level is going up and he was becoming very much agitated. He was started on Precedex. Ultimately the decision was to intubate the patient put him on a mechanical ventilator. Currently is sedated with a combination of propofol and fentanyl and the patient is also paralyzed with Nimbex. He is on a mechanical ventilator. Patient is currently on propofol at a dose of 75 mcg/kg per minute. The patient is also paralyzed with Nimbex at a dose of 1 mg/kg per minute. He is on a mechanical ventilator currently on assist control mode with a tidal volume 400, rate of 34, FiO2 of 100% and PEEP of 20. Most recent blood gas showed a pH of 7.08 with a pO2 of 101 and pO2 164. The patient was given a total of 4 ampules of sodium bicarbonate regarding his underlying respiratory acidosis to correct his acidosis. The patient has become hypotensive. He received a total of 2 L of IV fluid and currently is on normal saline infusion. Norepinephrine is running at 0.1 mg/kg per minute for blood pressure support. On today's blood work, his white cell count is up to 29 with a hemoglobin of 17. BUN is 28 with a creatinine of 0.7. LFTs are slightly elevated. His chest x-ray post intubation shows no evidence of any pneumothorax. The patient has bilateral saphenous emphysema. ET tube is in a good location. On clinical examination, the patient has extensive subcutaneous emphysema bilaterally on involving his chest and his neck area. Otherwise, feels well sedated for now. Fentanyl was also added to support his sedation. He remains on Decadron at a dose of 6 mg IV every 24 hours. He is also on anticoagulation with Lovenox 40 mg subcu U 12 hours. Follow-up d-dimer today's at 35. Patient was seen by Dr. Kern early this morning, his condition deteriorated, patient required intubation and mechanical ventilation. His ABG after intubation remains very poor. Patient developed worsening subcutaneous emphysema, however his chest x-ray could not rule out a very tiny right apical pneumothorax versus artifact. Continues to have groundglass infiltrates bilaterally. Because of his worsening subcutaneous emphysema, thoracic surgery was consulted. ABG post intubation showed a pO2 of 137 pCO2 of 87 pH of 7.18. Patient has significantly elevated WBC count of 29.6. Hemoglobin is 17. Elect ra lites are normal except for potassium of 5.4. Renal profile is normal. His inflammatory markers are worse with LDH of almost 10,000. And C-reactive protein is 501. Obviously the patient is taking a downhill course, and he is clinically deteriorating. He is now on assist control rate of 34 tidal volume is 400 FiO2 is 75% PEEP of 18 peak airway pressure is 35 and plateau pressure is 32. Fluids-rodriguez he is on IV fluid at KVO, propofol at 75 fentanyl 2 Nimbex at one and norepinephrine at 0.2. Patient was reevaluated today on 06/21/2020, patient remains intubated and mechanically ventilated. Patient is on assist control rate of 34, tidal volume is 400 FiO2 is 100% PEEP of 16. ABG showed a pO2 of 77 pCO2 of 78 pH of 7.31. WBC count is 15.9 hemoglobin is 14.6, d-dimer is down to 14.68, it was 35 yesterday patient had bilateral chest tube placement yesterday, chest x-ray showed improvement, hardly any pneumothorax is noted, subcutaneous emphysema seems to be less. Electro lites are normal renal profile is normal LDH is 3891 C-reactive protein is 4.1 CPK is 902. WBC count is 15.9 hemoglobin is 14.6. Peak airway pressure is 35 static pressures 29. Patient remains on norepineph rine, fentanyl, propofol 75 Nimbex, and he is still receiving sodium bicarb drip. Based on his ABG, I will cut it down. I was able to cut down his FiO2 down to 80%, kept him on a PEEP of 16, and my plan is to eventually taper down his FiO2 and tapered down his speech. Patient remains on enteral feeding using Nepro 17/17. Chest x-ray continues to show bilateral patchy opacities, and subcutaneous emphysema. Improved chest x-ray compared to yesterday. Less subcutaneous emphysema, and less pulmonary opacities noted. Patient was reevaluated today on 06/22/2020, remains in the ICU, intubated and mechanically ventilated. He is on assist control rate of 34 tidal volume is 400 FiO2 is 100% PEEP is 20. ABG showed a pO2 of 95 pCO2 of 86 pH of 7.33, hence I cut down the FiO2 down to 70% and kept the same vent settings. Patient had peak airway pressure of 40 static pressure of 24. Remains on propofol at 75., fentanyl, at 2, Nimbex at 2 and bicarb at 75 mL per hour. Patient remains sedated and paralyzed, I cut down his bicarb drip because of his improving acidosis. Patient continues to have bilateral chest tubes, no air leak in either chest tube. Remains on enteral feeding/Nepro 17/17. Patient is in sinus rhythm, a bit tachycardic at 108, hemodynamically stable, not requiring any pressors. WBC count is 20.3 hemoglobin is 15.7. Electro lites are normal. Renal profile is normal. LDH is 3346 and CPK is 365 C-reactive protein is 4.1. The LDH seems to be trending down, it was as high as almost 10,000. Chest x-ray is showing basically no change, bilateral chest tubes remain in place, no evidence of pneumothorax on either side, there is subcutaneous emphysema but seems to be improving. Diffuse airspace infiltrates persist, unchanged. Patient was reevaluated today on 06/23/2020, remains intubated and mechanically ventilated. Remains in the ICU, sedated and paralyzed. He is on assist control rate of 34, tidal volume is 400 FiO2 is 65 and PEEP is 20. ABG showed a pO2 of 77 pCO2 of 86 pH of 7.37. Patient remains on propofol at 75, fentanyl S3, pleasant Pleurx at 8 mg per hour, Nimbex at 2. Plan to give the patient a trial of Nimbex holiday today if possible. Remains on Nepro 17/17. Chest x-ray is basically the same, continues to show bilateral patchy infiltrates and subcutaneous emphysema. Patient is hemodynamically stable, not requiring any pressors, however he is a bit tachycardic rate is 120. Both sided chest tubes are about the same, and no leaks noted. Basic metabolic profile is normal, bicarb is 45. Patient remains on bicarb drip. D-dimer is 4.66. WBC count is 17.6 hemoglobin is 12.9. LDH remains high at 2747, C-reactive protein is 7 and CPK is 178. Patient was reevaluated today on 06/24/20, remains in the ICU, intubated and mechanically ventilated, sedated and paralyzed. He is on assist control rate of 34 tidal volume is 400 FiO2 of 65% and PEEP remains at 20. Peak airway pressure is about 39 and plateau pressure is 35. ABG showed a pO2 of 75 pCO2 83 pH of 7.39. Hence I decreased the FiO2 down to 60% kept him on the same PEEP/20. Patient remains on propofol at 75 Nimbex at 2 fentanyl S3, proximal at 5 mg per hour and he is also on a bicarb drip which I have discontinued today considering his ABG is showing metabolic compensation significant to his respiratory acidosis. Chest x-ray continues to show bilateral subcutaneous emphysema, improved, and bilateral patchy infiltrates I believe a bit better. Chest tubes remain in place, minimal air leak noted in the right-sided chest tube. No air leak noted in the left sided chest tube. Patient remains on enteral feeding, he is receiving Nepro . WBC count today is 21.7. D-dimer is 3.96. Electrolytes are normal bicarb is 48 BUN is 48 creatinine 0.60. LDH remains high at 2733 however it was as high as 10,002 days ago. C-reactive protein is down to 4.7. Reevaluated today on 06/25/2020, patient remains intubated and mechanically ventilated. He is on assist control rate of 34 tidal volume is 400 FiO2 60% PEEP remains at 20. His ABG today showed a pO2 of 61 pH of 7.38 and pCO2 of 87. Patient continues to have 2 chest tubes for his barotrauma, no air leak noted in the left sided chest tube, but intermittently noted in the right sided chest tube. Patient remains on D5W with bicarbonate 50 ML per hour propofol at 75 clevidipine 2 mg/h Nimbex at 2 fentanyl 3 mcg/kg/h. Chest x-ray continues to show bilateral infiltrates consistent with COVID-19 pneumonia, possibly a small right-sided apical pneumothorax is noted on the chest x-ray today. Left lung is fully expanded. Continues to have a pneumomediastinum and he continues to have subcutaneous emphysema in the neck region especially in the left side. Hence went ahead and placed a small tiny Angiocath, 14-gauge Angiocath to relieve some of the subcutaneous emphysema in the supraclavicular fat pad area WBC count is 16.4 hemoglobin is 12 sodium remains high at 145. Bicarb remains at [address] the patient back on bicarb mostly because of his hyperkalemia and wanted to keep his acidosis under control. Although it is mostly a respiratory type of acidosis alkaline phosphatase is 214, AST is 87. LDH is 2310. C-reactive protein is 4.1, Patient was reevaluated today on 06/26/2020, remains in the ICU, intubated and mechanically ventilated. Agent is on assist control rate of 34 tidal volume is 400 FiO2 is 60% and I cut it down to 55% PEEP was 20 and I cut it down to 18. ABG this morning showed a pO2 of 66 pCO2 of 88 pH of 7.37. Patient remains on Nepro . Patient has bilateral chest tubes, the left-sided chest tube is not showing any leak, however the right-sided chest tube has ongoing intermittent leak. Patient remains on propofol at 75 fentanyl S3 clevidipine 3 mg/h, and Nimbex at 30 mcg/kg/m. Patient is not requiring any pressors. Continues to have some subcu emphysema, but significantly improved compared to the last few days. Chest x-ray is showing minimal improvement. Continues to have some subcu emphysema. And pneumomediastinum. He got his 17 hemoglobin 11.6. Sodium is 146 potassium 5.3, renal profile is normal with BUN of 48 creatinine 0.64. LDH is coming down to 2490, and C-reactive protein is 6. overall I believe there is some improved but the patient remains quite ill, and condition remains very critical. Prognosis remains guarded. Objective - Vital Signs Vital signs: Vital Signs Temp 100.8 F H 06/26/20 08:00 Pulse 124 H 06/26/20 10:30 Resp 34 H 06/26/20 10:30 BP 157/89 06/26/20 10:30 Pulse Ox 88 L 06/26/20 10:30 Intake & Output 06/25/20 06/26/20 06/26/20 18:59 06:59 18:59 Intake Total 2276.739 1852.529 374.267 Output Total 1085 820 194 Balance 2572.204 0185.529 180.267 Weight 70 kg Intake: IV 1100 650 250 Cefepime 2 gm In Sodium 200 100 100 Chloride 0.9% 100 ml @ 25 mls/hr IVPB Q8HR [facility] Rx# :[id number] Dextrose 5% in Water 1, 650 550 150 000 ml @ 25 mls/hr IV . Q24H [facility] with Sodium Bicarb (1 Meq/ml) 150 ml Rx#:[id number] Vancomycin 1,500 mg In 250 Sodium Chloride 0.9% 250 ml @ 125 mls/hr IVPB Q8H [facility] Rx#:[id number] Intake, IV Titration 840.739 804.529 68.267 Amount Cisatracurium 200 mg In 206.248 116.205 Sodium Chloride 0.9% 180 ml @ 1 MCG/KG/MIN 3.81 mls/hr IV .Q24H [facility] Rx#: [id number] Clevidipine Butyrate 25 64.133 49.2 68.267 mg In Empty Bag 1 bag @ 1 MG/HR 2 mls/hr IV .Q24H [facility] Rx#:[id number] fentaNYL (PF). 1,000 mcg 179.706 284.785 In Sodium Chloride 0.9% 80 ml @ Per Protocol IV . Q0M [facility] Rx#:[id number] propofoL 1,000 mg In 390.652 354.339 Empty Bag 1 bag @ Titrate IV .Q0M [facility] Rx#: [id number] Tube Feeding 336 308 56 Other 90 Output: Chest Tube Drainage 100 15 Chest Tube Left 30 5 Chest Tube Right 70 10 Urine 985 805 194 Other: Voiding Method Indwelling Catheter Indwelling Catheter Indwelling Catheter ABP, PAP, CO, CI - Last Documented Arterial Blood Pressure 121/65 - Exam Gen.: Revealed a 55-year-old white male, sedated and paralyzed, on mechanical ventilation, minimal subcu emphysema in the neck area. And in the periorbital area.. HEENT: PERRLA, EOMI, nonicteric. Periorbital swelling remains about the same. Endotracheal tube and orogastric tubes are intact. Chest: Crackles and rhonchi bilaterally. Significant subcutaneous emphysema noted anteriorly and crepitation noted. Bilateral chest tubes are noted to be intact. Cardiac exam: Normal S1 and S2, no gallops. Abdomen: Soft nontender no megaly no rebound. Extremities: No clubbing edema or cyanosis. Skin: No rashes. Neurologic: patient is sedated and paralyzed. Eye: Could not assess. Musculoskeletal: No deformities, patient is paralyzed, could not assess range of motion. Lymphatics: No lymphadenopathy. - Labs CBC & Chem 7: 06/26/20 02:13 06/26/20 02:13 Labs: Abnormal Lab Results - Last 24 Hours (Table) 06/25/20 06/25/20 06/26/20 Range/Units 12:06 17:44 00:28 WBC (3.8-10.6) k/uL RBC (4.30-5.90) m/uL Hgb (13.0-17.5) gm/dL Hct (39.0-53.0) % Neutrophils # (1.3-7.7) k/uL D-Dimer (<0.60) mg/L FEU ABG pCO2 (35-45) mmHg ABG pO2 (83-108) mmHg ABG HCO3 (21-25) mmol/L ABG Total CO2 (19-24) mmol/L ABG O2 Saturation (94-97) % Sodium (137-145) mmol/L Potassium (3.5-5.1) mmol/L Carbon Dioxide (22-30) mmol/L BUN (9-20) mg/dL Creatinine (0.66-1.25) mg/dL Glucose (74-99) mg/dL POC Glucose (mg/dL) 159 H 200 H 150 H (75-99) mg/dL ALT (4-49) U/L Alkaline Phosphatase (38-126) U/L Lactate Dehydrogenase (313-618) U/L C-Reactive Protein (<1.0) mg/dL Total Protein (6.3-8.2) g/dL Albumin (3.5-5.0) g/dL 06/26/20 06/26/20 06/26/20 Range/Units 02:13 02:13 02:13 WBC 17.0 H (3.8-10.6) k/uL RBC 3.79 L (4.30-5.90) m/uL Hgb 11.6 L (13.0-17.5) gm/dL Hct 36.2 L (39.0-53.0) % Neutrophils # 15.2 H (1.3-7.7) k/uL D-Dimer 3.67 H (<0.60) mg/L FEU ABG pCO2 (35-45) mmHg ABG pO2 (83-108) mmHg ABG HCO3 (21-25) mmol/L ABG Total CO2 (19-24) mmol/L ABG O2 Saturation (94-97) % Sodium 146 H (137-145) mmol/L Potassium 5.3 H (3.5-5.1) mmol/L Carbon Dioxide 50 H* (22-30) mmol/L BUN 48 H (9-20) mg/dL Creatinine 0.64 L (0.66-1.25) mg/dL Glucose 143 H (74-99) mg/dL POC Glucose (mg/dL) (75-99) mg/dL ALT 70 H (4-49) U/L Alkaline Phosphatase 171 H (38-126) U/L Lactate Dehydrogenase 2490 H (313-618) U/L C-Reactive Protein 6.1 H (<1.0) mg/dL Total Protein 5.3 L (6.3-8.2) g/dL Albumin 2.8 L (3.5-5.0) g/dL 06/26/20 06/26/20 06/26/20 Range/Units 05:02 05:50 06:20 WBC (3.8-10.6) k/uL RBC (4.30-5.90) m/uL Hgb (13.0-17.5) gm/dL Hct (39.0-53.0) % Neutrophils # (1.3-7.7) k/uL D-Dimer (<0.60) mg/L FEU ABG pCO2 88 H* (35-45) mmHg ABG pO2 66 L (83-108) mmHg ABG HCO3 51 H* (21-25) mmol/L ABG Total CO2 54 H (19-24) mmol/L ABG O2 Saturation 92.5 L (94-97) % Sodium (137-145) mmol/L Potassium (3.5-5.1) mmol/L Carbon Dioxide (22-30) mmol/L BUN (9-20) mg/dL Creatinine (0.66-1.25) mg/dL Glucose (74-99) mg/dL POC Glucose (mg/dL) 157 H 157 H (75-99) mg/dL ALT (4-49) U/L Alkaline Phosphatase (38-126) U/L Lactate Dehydrogenase (313-618) U/L C-Reactive Protein (<1.0) mg/dL Total Protein (6.3-8.2) g/dL Albumin (3.5-5.0) g/dL 06/26/20 Range/Units 11:26 WBC (3.8-10.6) k/uL RBC (4.30-5.90) m/uL Hgb (13.0-17.5) gm/dL Hct (39.0-53.0) % Neutrophils # (1.3-7.7) k/uL D-Dimer (<0.60) mg/L FEU ABG pCO2 (35-45) mmHg ABG pO2 (83-108) mmHg ABG HCO3 (21-25) mmol/L ABG Total CO2 (19-24) mmol/L ABG O2 Saturation (94-97) % Sodium (137-145) mmol/L Potassium (3.5-5.1) mmol/L Carbon Dioxide (22-30) mmol/L BUN (9-20) mg/dL Creatinine (0.66-1.25) mg/dL Glucose (74-99) mg/dL POC Glucose (mg/dL) 161 H (75-99) mg/dL ALT (4-49) U/L Alkaline Phosphatase (38-126) U/L Lactate Dehydrogenase (313-618) U/L C-Reactive Protein (<1.0) mg/dL Total Protein (6.3-8.2) g/dL Albumin (3.5-5.0) g/dL Microbiology - Last 24 Hours (Table) 06/21/20 21:50 Gram Stain - Final Sputum Sputum Culture - Final Staphylococcus aureus Moraxella(branhamella) catarra Assessment and Plan Assessment: Impression: Acute hypoxic respiratory failure secondary to COVID-19 pneumonia Acute barotrauma from mechanical ventilation and relatively high PEEP. Requiring chest tube placement on left and right side. Right-sided chest tube continues to have intermittent air leak, left-sided chest tube is fine no leaking note Acute leukocytosis, suspect underlying secondary bacterial infection. Sputum cultures are positive for Moraxella catarrhalis, and presumptive staph aureus. Patient is on cefepime, vancomycin until the final report comes back on the presumptive staph aureus. Normally Moraxella catarrhalis is highly susceptible to cefepime. Elevated inflammatory markers improving based on the labs today. Hypotension post intubation, resolved. Thrombocytopenia secondary to sepsis. Recommendation: Continue ventilatory support. Continue COVID-19 cocktail. Continue sedatives and paralytics for now. Continue both chest tubes to suction Patient received toci and convalescent plasma. Continue GI and DVT prophylaxis. Continue nutritional support. /Enteral feeding. Continue Lovenox. Continue antibiotics , patient is now on cefepime and vancomycin. Patient continues to have poor prognosis considering all the findings above. May have to consider tracheostomy sometime in the next few days. Remains critically ill, critical care time is over 30 minutes. Time with Patient: Greater than 30
--- NOTE | 2020-06-26 15:23 | PN ---
PROGRESS NOTE DATE OF SERVICE: 06/26/2020 REASON FOR FOLLOWUP: Pneumonia. INTERVAL HISTORY: The patient did have a low grade fever of 100.1 and 100.8 today. The patient is hemodynamically stable although blood pressure is on the high site. No significant purulent secretions through the ET. Did have some diarrhea. He is getting some lactulose. No other changes reported by nursing staff. FiO2 is currently 55%. EXAMINATION: Blood pressure 130/91 with pulse of 101, temperature 100.1. He is 99% on 55% FiO2. General description is a middle-aged male intubated on the vent. Respiratory system: Unlabored breathing, decreased breath sounds at the base. No wheeze. HEART: S1, S2. Regular rate and rhythm. ABDOMEN: Soft, no tenderness. LABS: Hemoglobin 9.8, white count 17,000. BUN of 14, creatinine 0.64. DIAGNOSTIC IMPRESSION AND PLAN: Patient with acute respiratory failure which is multifactorial in this patient ( ) of COVID. Subsequently, pneumonia sputum showing Moraxella and MSSA, covered with cefepime, to continue and monitor clinical course closely. Continue supportive care. MMODL / IJN: [id number] /
[2020-06-26 17:22] LABS: Glucose,Whole Blood 218 mg/dL (75-99)
[2020-06-26 23:55] LABS: Glucose,Whole Blood 147 mg/dL (75-99)
[2020-06-27] MEDS: ARTIFICIAL TEARS-HYPROMELLOSE DROPS 15 ML BTL BOTH EYES SCH ×7 (00:46→23:32)
[2020-06-27] MEDS: INSULIN ASPART (NovoLOG) 100 UNIT/ML VIAL SQ SCH ×4 (00:47→18:07)
[2020-06-27] MEDS: CEFEPIME 2 GM in SODIUM CHLORIDE 0.9% 100 ML IVPB SCH ×4 (00:47→23:30)
[2020-06-27] MEDS: fentaNYL (PF). 1,000 MCG in SODIUM CHLORIDE 0.9% 80 ML IV SCH ×5 (01:25→20:36)
[2020-06-27] MEDS: DEXTROSE 5% IN WATER 1,000 ML with SODIUM BICARB (1 MEQ/ML) 150 ML IV SCH (03:20)
[2020-06-27 03:59] LABS: ALT 62 U/L (4-49); AST 53 U/L (17-59); African American GFR (CKD) >90 (>60 ml/min/1.73 sqM); Albumin 2.9 g/dL (3.5-5.0); Alkaline Phosphatase 157 U/L (38-126); Blood Urea Nitrogen 52 mg/dL (9-20); C Reactive Protein 8.8 mg/dL (<1.0); Calcium 8.9 mg/dL (8.4-10.2); Chloride 101 mmol/L (98-107); Glucose 160 mg/dL (74-99); Non-African American GFR(CKD) >90 (>60 ml/min/1.73 sqM); Potassium 5.2 mmol/L (3.5-5.1); Sodium 150 mmol/L (137-145); Total Bilirubin 0.8 mg/dL (0.2-1.3); Total Protein 5.7 g/dL (6.3-8.2)
[2020-06-27 04:07] LABS: Anion Gap -3 mmol/L
[2020-06-27 04:14] LABS: Carbon Dioxide 52 mmol/L (22-30)
[2020-06-27 04:15] LABS: LDH 2347 U/L (313-618)
[2020-06-27 04:30] LABS: Basophils # (A) 0.1 k/uL (0-0.2); Basophils % (A) 1 %; Eosinophils # (A) 0.1 k/uL (0-0.7); Eosinophils % (A) 0 %; HCT 38.3 % (39.0-53.0); HGB 11.9 gm/dL (13.0-17.5); Hypochromasia Slight; Lymphocytes # (A) 0.8 k/uL (1.0-4.8); Lymphocytes % (A) 6 %; MCH 30.2 pg (25.0-35.0); MCHC 31.1 g/dL (31.0-37.0); MCV 97.2 fL (80.0-100.0); Mean Platelet Volume 9.8; Monocytes # (A) 0.4 k/uL (0-1.0); Monocytes % (A) 3 %; Neutrophils % (A) 89 %; Platelet Count 148 k/uL (150-450); RBC 3.94 m/uL (4.30-5.90); RDW 14.8 % (11.5-15.5); WBC 13.5 k/uL (3.8-10.6)
[2020-06-27 05:37] LABS: ABG Base Excess 24.3 mmol/L; ABG Oxygen Saturation 91.5 % (94-97); ABG PH 7.36 (7.35-7.45); ABG PO2 62 mmHg (83-108); ABG TCO2 52 mmol/L (19-24); Allen Test Performed? Yes
[2020-06-27 05:47] LABS: ABG HCO3 50 mmol/L (21-25); ABG PCO2 87 mmHg (35-45)
[2020-06-27 06:13] LABS: Glucose,Whole Blood 146 mg/dL (75-99)
[2020-06-27] MEDS: CLEVIDIPINE BUTYRATE 25 MG in EMPTY BAG 1 BAG IV SCH ×2 (06:14→10:19)
[2020-06-27] MEDS: CISATRACURIUM 200 MG in SODIUM CHLORIDE 0.9% 180 ML IV SCH ×2 (06:44→20:34)
--- NOTE | 2020-06-27 06:51 | P.PN ---
Subjective Progress Note Date: 06/27/20 Principal diagnosis: Acute COVID-19 pneumonia, pneumomediastinum, extensive subcutaneous emphysema, acute hypoxic respiratory failure, elevated inflammatory markers secondary to Co vid-19, leukocytosis, thrombocytopenia, hypotension post intubation, respiratory acidosis POD #7 placement of bilateral chest tubes by Dr. Dominique The patient remains laying in bed in the intensive care unit, remains intubated, sedated, and paralyzed. Bilateral chest tubes remain in place, intermittent air leak continues in the right chest tube, no air leaks present in left chest tube, minimal drainage, subcutaneous emphysema remains present, appears less than yesterday. Ventilator changes continued to be made by pulmonology, currently on 55% FiO2 and 18 PEEP. WBC 13.5, D-dimer 4.69, CRP 8.8, LDH 2347. Tmax 100.8F last 24 hours. Suputum culture positive for MSSA, moraxella, remains on IV cefepime. Remains sinus tach off pressors, currently on cleveprex. Also remains on fentanyl, propofol and nimbex. Objective - Vital Signs Vital signs: Vital Signs Temp 100.8 F H 06/26/20 16:00 Pulse 126 H 06/27/20 06:00 Resp 34 H 06/27/20 06:00 BP 134/80 06/27/20 06:00 Pulse Ox 91 L 06/27/20 06:00 Intake & Output 06/26/20 06/26/20 06/27/20 06:59 18:59 06:59 Intake Total 6452.681 5818.090 1378.855 Output Total 820 1291 895 Balance 1032.529 379.090 483.855 Weight 70 kg 74.5 kg Intake: IV 650 850 333 0.9 50 Cefepime 2 gm In Sodium 100 200 Chloride 0.9% 100 ml @ 25 mls/hr IVPB Q8HR [facility] Rx# :[id number] Clevidipine Butyrate 25 33 mg In Empty Bag 1 bag @ 1 MG/HR 2 mls/hr IV .Q24H [facility] Rx#:[id number] Dextrose 5% in Water 1, 550 650 250 000 ml @ 25 mls/hr IV . Q24H [facility] with Sodium Bicarb (1 Meq/ml) 150 ml Rx#:[id number] Intake, IV Titration 804.529 708.090 617.855 Amount Cefepime 2 gm In Sodium 100 Chloride 0.9% 100 ml @ 25 mls/hr IVPB Q8HR [facility] Rx# :[id number] Cisatracurium 200 mg In 116.205 144.018 182.118 Sodium Chloride 0.9% 180 ml @ 1 MCG/KG/MIN 3.81 mls/hr IV .Q24H [facility] Rx#: [id number] Clevidipine Butyrate 25 49.2 99.867 50 mg In Empty Bag 1 bag @ 1 MG/HR 2 mls/hr IV .Q24H [facility] Rx#:[id number] Dextrose 5% in Water 1, 100 000 ml @ 50 mls/hr IV . Q23H [facility] with Sodium Bicarb (1 Meq/ml) 150 ml Rx#:[id number] fentaNYL (PF). 1,000 mcg 284.785 78.105 285.737 In Sodium Chloride 0.9% 80 ml @ Per Protocol IV . Q0M [facility] Rx#:[id number] propofoL 1,000 mg In 354.339 186.1 100 Empty Bag 1 bag @ Titrate IV .Q0M [facility] Rx#: [id number] Tube Feeding 308 112 308 Other 90 120 Output: Chest Tube Drainage 15 170 130 Chest Tube Left 5 60 10 Chest Tube Right 10 110 120 Urine 805 1121 765 Other: Voiding Method Indwelling Catheter Indwelling Catheter Indwelling Catheter # Bowel Movements 1 ABP, PAP, CO, CI - Last Documented Arterial Blood Pressure 121/65 - Exam CONSTITUTIONAL: Remains sedated and paralyzed on mechanical ventilation EYES: Subcutaneous emphysema significantly decreased over both eyes ENT: Moist mucous membranes without oral lesions present NECK: No masses, no bruits, trachea midline RESPIRATORY: Lungs sounds diminished to auscultation bilaterally. Currently on mechanical ventilation, assist control mode, FiO2 55%, PEEP 18, tidal volume 400, respiratory rate 34. ABGs this am on those settings 7.36/87/62/50/91%/BE 24.3. 8.0 ET tube present, 25 at the lip. Subcutaneous emphysema present to the chest, arms, neck, face, less than yesterday. CARDIOVASCULAR: S1, S2 present. Tachycardic but regular rate and rhythm, sinus tach on telemetry with heart rate in the 120s. Palpable peripheral pulses bilaterally. SCDs present. GASTROINTESTINAL: Abdomen soft, nondistended without masses or organomegaly noted. Active bowel sounds present 4 quadrants. OG tube present, tube feeding infusing at 28 ml/hr. Positive bowel movement GENITOURINARY: Indwelling catheter present draining clear, yellow urine. Urine output 50-80 mL per hour INTEGUMENTARY: Skin is warm and dry NEUROLOGIC: Unable to assess as patient is currently receiving IV paralytic INVASIVE LINES/TUBES: Right PICC line present. Right and left pleural chest tubes present, intermittent air leak again noted in right chest tube, no air leak present in left chest tube, minimal drainage. - Allied health notes Allied health notes reviewed: nursing - Labs CBC & Chem 7: 06/27/20 03:28 06/27/20 03:28 Labs: Abnormal Lab Results - Last 24 Hours (Table) 06/26/20 06/26/20 06/26/20 Range/Units 11:26 17:20 23:54 WBC (3.8-10.6) k/uL RBC (4.30-5.90) m/uL Hgb (13.0-17.5) gm/dL Hct (39.0-53.0) % Plt Count (150-450) k/uL Neutrophils # (1.3-7.7) k/uL Lymphocytes # (1.0-4.8) k/uL D-Dimer (<0.60) mg/L FEU ABG pCO2 (35-45) mmHg ABG pO2 (83-108) mmHg ABG HCO3 (21-25) mmol/L ABG Total CO2 (19-24) mmol/L ABG O2 Saturation (94-97) % Sodium (137-145) mmol/L Potassium (3.5-5.1) mmol/L Carbon Dioxide (22-30) mmol/L BUN (9-20) mg/dL Glucose (74-99) mg/dL POC Glucose (mg/dL) 161 H 218 H 147 H (75-99) mg/dL ALT (4-49) U/L Alkaline Phosphatase (38-126) U/L Lactate Dehydrogenase (313-618) U/L C-Reactive Protein (<1.0) mg/dL Total Protein (6.3-8.2) g/dL Albumin (3.5-5.0) g/dL 06/27/20 06/27/2006/27/21 Range/Units 03:28 03:28 03:28 WBC 13.5 H (3.8-10.6) k/uL RBC 3.94 L (4.30-5.90) m/uL Hgb 11.9 L (13.0-17.5) gm/dL Hct 38.3 L (39.0-53.0) % Plt Count 148 L (150-450) k/uL Neutrophils # 12.0 H (1.3-7.7) k/uL Lymphocytes # 0.8 L (1.0-4.8) k/uL D-Dimer 4.69 H (<0.60) mg/L FEU ABG pCO2 (35-45) mmHg ABG pO2 (83-108) mmHg ABG HCO3 (21-25) mmol/L ABG Total CO2 (19-24) mmol/L ABG O2 Saturation (94-97) % Sodium 150 H (137-145) mmol/L Potassium 5.2 H (3.5-5.1) mmol/L Carbon Dioxide 52 H* (22-30) mmol/L BUN 52 H (9-20) mg/dL Glucose 160 H (74-99) mg/dL POC Glucose (mg/dL) (75-99) mg/dL ALT 62 H (4-49) U/L Alkaline Phosphatase 157 H (38-126) U/L Lactate Dehydrogenase 2347 H (313-618) U/L C-Reactive Protein 8.8 H (<1.0) mg/dL Total Protein 5.7 L (6.3-8.2) g/dL Albumin 2.9 L (3.5-5.0) g/dL 06/27/20 06/27/20 Range/Units 05:30 06:11 WBC (3.8-10.6) k/uL RBC (4.30-5.90) m/uL Hgb (13.0-17.5) gm/dL Hct (39.0-53.0) % Plt Count (150-450) k/uL Neutrophils # (1.3-7.7) k/uL Lymphocytes # (1.0-4.8) k/uL D-Dimer (<0.60) mg/L FEU ABG pCO2 87 H* (35-45) mmHg ABG pO2 62 L (83-108) mmHg ABG HCO3 50 H* (21-25) mmol/L ABG Total CO2 52 H (19-24) mmol/L ABG O2 Saturation 91.5 L (94-97) % Sodium (137-145) mmol/L Potassium (3.5-5.1) mmol/L Carbon Dioxide (22-30) mmol/L BUN (9-20) mg/dL Glucose (74-99) mg/dL POC Glucose (mg/dL) 146 H (75-99) mg/dL ALT (4-49) U/L Alkaline Phosphatase (38-126) U/L Lactate Dehydrogenase (313-618) U/L C-Reactive Protein (<1.0) mg/dL Total Protein (6.3-8.2) g/dL Albumin (3.5-5.0) g/dL - Imaging and Cardiology Chest x-ray: image reviewed Assessment and Plan Assessment: 1. Acute COVID-19 pneumonia 2. Pneumomediastinum, extensive subcutaneous emphysema, S/P placement of right and left pleural chest tubes by pulmonology, S/P placement of 14g angiocath to left neck 3. Acute hypoxic respiratory failure, remains on mechanical ventilation 4. Elevated inflammatory markers secondary to Covid 5. Leukocytosis, febrile, sputum culture from 06/21/20 growing MSSA and morexella 6. Thrombocytopenia, resolved 6. Hypotension post intubation, currently off pressors and hypertensive requiring cleviprex 7. Respiratory acidosis Plan: 1. Continue both chest tubes to continuous wall suction, monitor for resolution of subcutaneous emphysema, airleak. No plans to remove chest tube anytime soon 2. Mechanical ventilation, sedation, paralytic, antibiotics, covid managment per enrolled nurse. Sounds like pulmonology is considering trach and peg soon 3. No surgery is warranted 4. GI/DVT prophylaxis 5. Will monitor daily CXR 6. Patient remains critically ill with poor prognosis Time with Patient: Greater than 30
--- NOTE | 2020-06-27 07:21 | XR ---
EXAMINATION TYPE: XR chest 1V portable DATE OF EXAM: 06/27/2020 COMPARISON: 06/26/2020 HISTORY: SOB, Follow Up FINDINGS: Examination limited given the fact that the lung apices are cut off the [id number]. Small right apical pneumothorax persists and may be smaller in size. As noted above the examination i s limited. No sizable left-sided pneumothorax. Subcutaneous emphysema appears to be improving. Indwelling tubes and catheters are unchanged. Patchy airspace infiltrates throughout both lung driver essentially unchanged. Stable appearance of the cardio-mediastinal structures at this time. Pleural effusion unchanged. IMPRESSION: 1. Limited examination. The right lung apex is cut off the [id number]. Small right-sided pneumotho rax is redemonstrated and may be slightly smaller in size. The remainder of the examination is stable .
[2020-06-27] MEDS: CHLORHEXIDINE GLUCONATE 15 ML CUP MUCOUS MEM SCH ×2 (09:17→20:31)
[2020-06-27] MEDS: ZINC SULFATE 220 MG CAP PO SCH (09:17)
[2020-06-27] MEDS: LACTULOSE 20 GM/30 ML CUP PO SCH ×2 (09:17→20:31)
[2020-06-27] MEDS: PANTOPRAZOLE 40 MG/10 ML VIAL IVP SCH (09:17)
[2020-06-27] MEDS: ENOXAPARIN 40 MG/0.4 ML SYRINGE SQ SCH (09:17)
[2020-06-27] MEDS: ASCORBIC ACID 500 MG TAB PO SCH (09:18)
[2020-06-27] MEDS: DEXAMETHASONE SOD PHOSPHATE 10 MG/ML 1 ML VIAL IV SCH (09:18)
[2020-06-27] MEDS: CHOLECALCIFEROL 25 MCG (1000 IU) TABLET PO SCH (09:18)
[2020-06-27] MEDS ORDERED: FUROSEMIDE 10 MG/ML 4 ML VIAL IV STA (10:52)
--- NOTE | 2020-06-27 11:01 | P.PN ---
Subjective Progress Note Date: 06/27/20 Principal diagnosis: COVID 19 pneumonia Patient was reevaluated today on 06/23/2020, remains intubated and mechanically ventilated. Remains in the ICU, sedated and paralyzed. He is on assist control rate of 34, tidal volume is 400 FiO2 is 65 and PEEP is 20. ABG showed a pO2 of 77 pCO2 of 86 pH of 7.37. Patient remains on propofol at 75, fentanyl S3, pleasant Pleurx at 8 mg per hour, Nimbex at 2. Plan to give the patient a trial of Nimbex holiday today if possible. Remains on Nepro 17/17. Chest x-ray is basically the same, continues to show bilateral patchy infiltrates and subcutaneous emphysema. Patient is hemodynamically stable, not requiring any pressors, however he is a bit tachycardic rate is 120. Both sided chest tubes are about the same, and no leaks noted. Basic metabolic profile is normal, bicarb is 45. Patient remains on bicarb drip. D-dimer is 4.66. WBC count is 17.6 hemoglobin is 12.9. LDH remains high at 2747, C-reactive protein is 7 and CPK is 178. Patient was reevaluated today on 06/24/20, remains in the ICU, intubated and mechanically ventilated, sedated and paralyzed. He is on assist control rate of 34 tidal volume is 400 FiO2 of 65% and PEEP remains at 20. Peak airway pressure is about 39 and plateau pressure is 35. ABG showed a pO2 of 75 pCO2 83 pH of 7.39. Hence I decreased the FiO2 down to 60% kept him on the same PEEP/20. Patient remains on propofol at 75 Nimbex at 2 fentanyl S3, proximal at 5 mg per hour and he is also on a bicarb drip which I have discontinued today considering his ABG is showing metabolic compensation significant to his respiratory acidosis. Chest x-ray continues to show bilateral subcutaneous emphysema, improved, and bilateral patchy infiltrates I believe a bit better. Chest tubes remain in place, minimal air leak noted in the right-sided chest tube. No air leak noted in the left sided chest tube. Patient remains on enteral feeding, he is receiving Nepro 17/17. WBC count today is 21.7. D-dimer is 3.96. Electrolytes are normal bicarb is 48 BUN is 48 creatinine 0.60. LDH remains high at 2733 however it was as high as 10,002 days ago. C-reactive protein is down to 4.7. Reevaluated today on 06/25/2020, patient remains intubated and mechanically ventilated. He is on assist control rate of 34 tidal volume is 400 FiO2 60% PEEP remains at 20. His ABG today showed a pO2 of 61 pH of 7.38 and pCO2 of 87. Patient continues to have 2 chest tubes for his barotrauma, no air leak noted in the left sided chest tube, but intermittently noted in the right sided chest tube. Patient remains on D5W with bicarbonate 50 ML per hour propofol at 75 clevidipine 2 mg/h Nimbex at 2 fentanyl 3 mcg/kg/h. Chest x-ray continues to show bilateral infiltrates consistent with COVID-19 pneumonia, possibly a small right-sided apical pneumothorax is noted on the chest x-ray today. Left lung is fully expanded. Continues to have a pneumomediastinum and he continues to have subcutaneous emphysema in the neck region especially in the left side. Hence went ahead and placed a small tiny Angiocath, 14-gauge Angiocath to relieve some of the subcutaneous emphysema in the supraclavicular fat pad area WBC count is 16.4 hemoglobin is 12 sodium remains high at 145. Bicarb remains at [address] the patient back on bicarb mostly because of his hyperkalemia and wanted to keep his acidosis under control. Although it is mostly a respiratory type of acidosis alkaline phosphatase is 214, AST is 87. LDH is 2310. C-reactive protein is 4.1, Patient was reevaluated today on 06/26/2020, remains in the ICU, intubated and mechanically ventilated. Agent is on assist control rate of 34 tidal volume is 400 FiO2 is 60% and I cut it down to 55% PEEP was 20 and I cut it down to 18. ABG this morning showed a pO2 of 66 pCO2 of 88 pH of 7.37. Patient remains on Nepro . Patient has bilateral chest tubes, the left-sided chest tube is not showing any leak, however the right-sided chest tube has ongoing intermittent leak. Patient remains on propofol at 75 fentanyl S3 clevidipine 3 mg/h, and Nimbex at 30 mcg/kg/m. Patient is not requiring any pressors. Continues to have some subcu emphysema, but significantly improved compared to the last few days. Chest x-ray is showing minimal improvement. Continues to have some subcu emphysema. And pneumomediastinum. He got his 17 hemoglobin 11.6. Sodium is 146 potassium 5.3, renal profile is normal with BUN of 48 creatinine 0.64. LDH is coming down to 2490, and C-reactive protein is 6. overall I believe there is some improved but the patient remains quite ill, and condition remains very critical. Prognosis remains guarded. Progress note dated 06/27/2020. The patient was admitted to the hospital on June 13. His diagnosis was that of coronavirus infection and pneumonia. The patient was intubated on June 20. He remains on the ventilator, on the volume assist control mode, rate 34, tidal volume 400, FiO2 55%, PEEP 18. Arterial blood gases show pO2 62, PaCO2 87, and a pH is 7.36. The patient remains on Cleveprex at 3 mg an hour, Nimbex at 3 mcg/kg/m, fentanyl at 3 mcg/kg/h, propofol at 75 mcg/kg/m, and tube feedings with Nepro at 28 mL an hour, which is goal. The patient will benefit from a tracheostomy and PEG tube placement. In addition, a new art line will be placed. The patient does have bilateral chest tubes secondary to bilateral pneumothoraces. White count 13.5, hemoglobin 11.9, hematocrit 38.3, and platelet count 148,000. D-dimer is 4.69. Blood gases have been noted. Sodium 150, potassium 5.2, chlorides 101, CO2 52, BUN 52, creatinine 0.76. The patient's sodium bicarbonate IV/drip was discontinued. LDH is 2347 C-reactive protein 8.8. Objective - Vital Signs Vital signs: Vital Signs Temp 101.7 F H 06/27/20 09:00 Pulse 121 H 06/27/20 10:00 Resp 34 H 06/27/20 10:00 BP 105/64 06/27/20 10:00 Pulse Ox 90 L 06/27/20 09:00 Intake & Output 06/26/20 06/27/20 06/27/20 18:59 06:59 18:59 Intake Total 4324.931 9178.855 315.675 Output Total 1291 895 310 Balance 379.090 583.855 5.675 Weight 74.5 kg Intake: IV 850 333 112 0.9 50 Cefepime 2 gm In Sodium 200 100 Chloride 0.9% 100 ml @ 25 mls/hr IVPB Q8HR [facility] Rx# :[id number] Clevidipine Butyrate 25 33 3 mg In Empty Bag 1 bag @ 1 MG/HR 2 mls/hr IV .Q24H [facility] Rx#:[id number] Dextrose 5% in Water 1, 650 250 000 ml @ 25 mls/hr IV . Q24H [facility] with Sodium Bicarb (1 Meq/ml) 150 ml Rx#:[id number] pressure bag 9 Intake, IV Titration 708.090 717.855 122.675 Amount Cefepime 2 gm In Sodium 100 Chloride 0.9% 100 ml @ 25 mls/hr IVPB Q8HR [facility] Rx# :[id number] Cisatracurium 200 mg In 144.018 182.118 Sodium Chloride 0.9% 180 ml @ 1 MCG/KG/MIN 3.81 mls/hr IV .Q24H [facility] Rx#: [id number] Clevidipine Butyrate 25 99.867 50 24.5 mg In Empty Bag 1 bag @ 1 MG/HR 2 mls/hr IV .Q24H [facility] Rx#:[id number] Dextrose 5% in Water 1, 100 000 ml @ 50 mls/hr IV . Q23H [facility] with Sodium Bicarb (1 Meq/ml) 150 ml Rx#:[id number] fentaNYL (PF). 1,000 mcg 78.105 285.737 In Sodium Chloride 0.9% 80 ml @ Per Protocol IV . Q0M [facility] Rx#:[id number] propofoL 1,000 mg In 186.1 200 98.175 Empty Bag 1 bag @ Titrate IV .Q0M [facility] Rx#: [id number] Tube Feeding 112 308 81 Other 120 Output: Chest Tube Drainage 170 130 Chest Tube Left 60 10 Chest Tube Right 110 120 Urine 1121 765 310 Other: Voiding Method Indwelling Catheter Indwelling Catheter Indwelling Catheter # Bowel Movements 1 ABP, PAP, CO, CI - Last Documented Arterial Blood Pressure 112/63 - Exam Currently, the patient is sedated and paralyzed. There is an orally placed endotracheal tube and NG tube. HEENT examination is grossly unremarkable. Neck supple. Full range of motion. No adenopathy thyromegaly or neck vein distention. Some subcutaneous emphysema noted in the neck area. Cardiovascular examination reveals regular rhythm rate. S1-S2 normal. No S3 or S4. No discernible murmur noted. Heart rate 121 bpm. Lungs reveal coarse bilateral rhonchi. Bilateral crackles are also noted. There is also subcutaneous emphysema noted in the left chest area. Abdomen soft bowel sounds are heard. No masses or tenderness. Extremities are intact. No cyanosis clubbing or edema. Skin is without rash or lesion. Neurologic examination could not be assessed as the patient's currently sedated and paralyzed. - Labs CBC & Chem 7: 06/27/20 03:28 06/27/20 03:28 Labs: Abnormal Lab Results - Last 24 Hours (Table) 06/26/20 06/26/20 06/26/20 Range/Units 11:26 17:20 23:54 WBC (3.8-10.6) k/uL RBC (4.30-5.90) m/uL Hgb (13.0-17.5) gm/dL Hct (39.0-53.0) % Plt Count (150-450) k/uL Neutrophils # (1.3-7.7) k/uL Lymphocytes # (1.0-4.8) k/uL D-Dimer (<0.60) mg/L FEU ABG pCO2 (35-45) mmHg ABG pO2 (83-108) mmHg ABG HCO3 (21-25) mmol/L ABG Total CO2 (19-24) mmol/L ABG O2 Saturation (94-97) % Sodium (137-145) mmol/L Potassium (3.5-5.1) mmol/L Carbon Dioxide (22-30) mmol/L BUN (9-20) mg/dL Glucose (74-99) mg/dL POC Glucose (mg/dL) 161 H 218 H 147 H (75-99) mg/dL ALT (4-49) U/L Alkaline Phosphatase (38-126) U/L Lactate Dehydrogenase (313-618) U/L C-Reactive Protein (<1.0) mg/dL Total Protein (6.3-8.2) g/dL Albumin (3.5-5.0) g/dL 06/27/20 06/27/20 06/27/20 Range/Units 03:28 03:28 03:28 WBC 13.5 H (3.8-10.6) k/uL RBC 3.94 L (4.30-5.90) m/uL Hgb 11.9 L (13.0-17.5) gm/dL Hct 38.3 L (39.0-53.0) % Plt Count 148 L (150-450) k/uL Neutrophils # 12.0 H (1.3-7.7) k/uL Lymphocytes # 0.8 L (1.0-4.8) k/uL D-Dimer 4.69 H (<0.60) mg/L FEU ABG pCO2 (35-45) mmHg ABG pO2 (83-108) mmHg ABG HCO3 (21-25) mmol/L ABG Total CO2 (19-24) mmol/L ABG O2 Saturation (94-97) % Sodium 150 H (137-145) mmol/L Potassium 5.2 H (3.5-5.1) mmol/L Carbon Dioxide 52 H* (22-30) mmol/L BUN 52 H (9-20) mg/dL Glucose 160 H (74-99) mg/dL POC Glucose (mg/dL) (75-99) mg/dL ALT 62 H (4-49) U/L Alkaline Phosphatase 157 H (38-126) U/L Lactate Dehydrogenase 2347 H (313-618) U/L C-Reactive Protein 8.8 H (<1.0) mg/dL Total Protein 5.7 L (6.3-8.2) g/dL Albumin 2.9 L (3.5-5.0) g/dL 06/27/20 06/27/20 Range/Units 05:30 06:11 WBC (3.8-10.6) k/uL RBC (4.30-5.90) m/uL Hgb (13.0-17.5) gm/dL Hct (39.0-53.0) % Plt Count (150-450) k/uL Neutrophils # (1.3-7.7) k/uL Lymphocytes # (1.0-4.8) k/uL D-Dimer (<0.60) mg/L FEU ABG pCO2 87 H* (35-45) mmHg ABG pO2 62 L (83-108) mmHg ABG HCO3 50 H* (21-25) mmol/L ABG Total CO2 52 H (19-24) mmol/L ABG O2 Saturation 91.5 L (94-97) % Sodium (137-145) mmol/L Potassium (3.5-5.1) mmol/L Carbon Dioxide (22-30) mmol/L BUN (9-20) mg/dL Glucose (74-99) mg/dL POC Glucose (mg/dL) 146 H (75-99) mg/dL ALT (4-49) U/L Alkaline Phosphatase (38-126) U/L Lactate Dehydrogenase (313-618) U/L C-Reactive Protein (<1.0) mg/dL Total Protein (6.3-8.2) g/dL Albumin (3.5-5.0) g/dL Assessment and Plan Assessment: Acute hypoxemic respiratory failure secondary to Covid 19 pneumonia/pneumonitis. Acute barotrauma from mechanical ventilation, and relatively high PEEP levels, requiring bilateral chest tubes. Oxacillin sensitive staph aureus and Moraxella catarrhalis tracheobronchitis/bronchopneumonia. Hypernatremia. Elevated inflammatory markers. Hypotension, resolved. Hypertension, currently on Cleveprex. Thrombocytopenia, secondary to sepsis. Plan: Plan dated 06/27/2020. The bicarbonate drip will be discontinued given the fact that the patient's sodium is quite high. No ventilator changes today. The patient will need a tracheostomy and PEG tube placement. Surgery will be consulted. In addition, a new arterial line will be placed today. Additional recommendations and suggestions are forthcoming. Prognosis is very guarded. We'll continue to follow make recommendations where appropriate. Time with Patient: Greater than 30
--- NOTE | 2020-06-27 11:52 | P.GSCN ---
History of Present Illness Consult date: 06/27/20 History of present illness: CHIEF COMPLAINT: Worsening shortness of breath HISTORY OF PRESENT ILLNESS: This is a 55-year-old male with no significant past medical history. He presented to the hospital on 06/13/2020 with worsening shortness of breath. He was diagnosed with Covid 19 pneumonia 5 days prior to his admission. Patient had worsening respiratory status and did require to be intubated. He has required prolonged mechanical ventilation and therefore surgi norbert consult was placed for tracheostomy and PEG tube placement. Patient also during this admission had acute barotrauma from mechanical ventilation requiring bilateral chest tubes. He also has subcutaneous emphysema in his neck and is status post placement of a 14g Angiocath to the left neck. Patient has been febrile. Temporal 101.7 PAST MEDICAL HISTORY: See list. PAST SURGICAL HISTORY: See list. MEDICATIONS: See list. ALLERGIES: See list. SOCIAL HISTORY: No illicit drug use. REVIEW OF SYSTEMS: Not obtained. Patient intubated and sedated PHYSICAL EXAM: VITAL SIGNS: Reviewed GENERAL: Well-developed in no acute distress. HEENT: No sclera icterus. Extraocular movements grossly intact. Moist buccal mucosa. Head is atraumatic, normocephalic. No nasal drainage. ABDOMEN: Soft. Nondistended. Nontender NEUROLOGIC: Intubated and sedated LABORATORY DATA: WBC 13.5 Hgb 11.9 platelets 148 d-dimer 4.69 Sodium 150 potassium 5.2 CO2 52 BUN 52 creatinine 0.76 Albumin 2.9 IMAGING: Chest x-ray small right-sided pneumothorax is redemonstrated and may be slightly smaller in size. ASSESSMENT: 1. Acute hypoxic respiratory failure secondary to COVID-19 pneumonia. Patient has required prolonged mechanical ventilation 2. Severe protein calorie malnutrition 3. Pneumomediastinum due to acute barotrauma from mechanical ventilation. Patient has bilateral chest tubes. Followed by cardiothoracic surgery 4. Subcutaneous emphysema of the neck PLAN: -Patient scheduled for tracheostomy and PEG tube placement for today with Dr. Apodaca -Place tube feedings on hold -Continue ICU management -Continue supportive care Thank you for this consultation Physician Cotton Inspector note has been reviewed by physician. Signing provider agrees with the documented findings, assessment, and plan of care. Past Medical History Past Medical History: No Reported History History of Any Multi-Drug Resistant Organisms: None Reported Past Surgical History: Orthopedic Surgery Additional Past Surgical History / Comment(s): surgery on hyloid surgery Past Anesthesia/Blood Transfusion Reactions: No Reported Reaction Past Psychological History: No Psychological Hx Reported Smoking Status: Never smoker Past Alcohol Use History: Occasional Past Drug Use History: None Reported - Past Family History Father Additional Family Medical History / Comment(s): none Medications and Allergies Home Medications Medication Instructions Recorded Confirmed Type No Known Home Medications 06/14/20 06/14/20 History Allergies Allergy/AdvReac Type Severity Reaction Status Date / Time No Known Allergies Allergy Verified 06/14/20 07:39 Surgical - Exam Vital Signs Temp Pulse Resp BP Pulse Ox 97.8 F 101 H 18 114/75 86 L 06/13/20 22:22 06/13/20 22:22 06/13/20 22:22 06/13/20 22:22 06/13/20 22:22 Results - Labs 06/27/20 03:28 06/27/20 03:28 Abnormal Lab Results - Last 24 Hours (Table) 06/26/20 06/26/20 06/27/20 Range/Units 17:20 23:54 03:28 WBC (3.8-10.6) k/uL RBC (4.30-5.90) m/uL Hgb (13.0-17.5) gm/dL Hct (39.0-53.0) % Plt Count (150-450) k/uL Neutrophils # (1.3-7.7) k/uL Lymphocytes # (1.0-4.8) k/uL D-Dimer (<0.60) mg/L FEU ABG pCO2 (35-45) mmHg ABG pO2 (83-108) mmHg ABG HCO3 (21-25) mmol/L ABG Total CO2 (19-24) mmol/L ABG O2 Saturation (94-97) % Sodium 150 H (137-145) mmol/L Potassium 5.2 H (3.5-5.1) mmol/L Carbon Dioxide 52 H* (22-30) mmol/L BUN 52 H (9-20) mg/dL Glucose 160 H (74-99) mg/dL POC Glucose (mg/dL) 218 H 147 H (75-99) mg/dL ALT 62 H (4-49) U/L Alkaline Phosphatase 157 H (38-126) U/L Lactate Dehydrogenase 2347 H (313-618) U/L C-Reactive Protein 8.8 H (<1.0) mg/dL Total Protein 5.7 L (6.3-8.2) g/dL Albumin 2.9 L (3.5-5.0) g/dL 06/27/20 06/27/20 06/27/20 Range/Units 03:28 03:28 05:30 WBC 13.5 H (3.8-10.6) k/uL RBC 3.94 L (4.30-5.90) m/uL Hgb 11.9 L (13.0-17.5) gm/dL Hct 38.3 L (39.0-53.0) % Plt Count 148 L (150-450) k/uL Neutrophils # 12.0 H (1.3-7.7) k/uL Lymphocytes # 0.8 L (1.0-4.8) k/uL D-Dimer 4.69 H (<0.60) mg/L FEU ABG pCO2 87 H* (35-45) mmHg ABG pO2 62 L (83-108) mmHg ABG HCO3 50 H* (21-25) mmol/L ABG Total CO2 52 H (19-24) mmol/L ABG O2 Saturation 91.5 L (94-97) % Sodium (137-145) mmol/L Potassium (3.5-5.1) mmol/L Carbon Dioxide (22-30) mmol/L BUN (9-20) mg/dL Glucose (74-99) mg/dL POC Glucose (mg/dL) (75-99) mg/dL ALT (4-49) U/L Alkaline Phosphatase (38-126) U/L Lactate Dehydrogenase (313-618) U/L C-Reactive Protein (<1.0) mg/dL Total Protein (6.3-8.2) g/dL Albumin (3.5-5.0) g/dL 06/27/20 Range/Units 06:11 WBC (3.8-10.6) k/uL RBC (4.30-5.90) m/uL Hgb (13.0-17.5) gm/dL Hct (39.0-53.0) % Plt Count (150-450) k/uL Neutrophils # (1.3-7.7) k/uL Lymphocytes # (1.0-4.8) k/uL D-Dimer (<0.60) mg/L FEU ABG pCO2 (35-45) mmHg ABG pO2 (83-108) mmHg ABG HCO3 (21-25) mmol/L ABG Total CO2 (19-24) mmol/L ABG O2 Saturation (94-97) % Sodium (137-145) mmol/L Potassium (3.5-5.1) mmol/L Carbon Dioxide (22-30) mmol/L BUN (9-20) mg/dL Glucose (74-99) mg/dL POC Glucose (mg/dL) 146 H (75-99) mg/dL ALT (4-49) U/L Alkaline Phosphatase (38-126) U/L Lactate Dehydrogenase (313-618) U/L C-Reactive Protein (<1.0) mg/dL Total Protein (6.3-8.2) g/dL Albumin (3.5-5.0) g/dL Diabetes panel 06/27/20 Range/Units 03:28 Sodium 150 H (137-145) mmol/L Potassium 5.2 H (3.5-5.1) mmol/L Chloride 101 (98-107) mmol/L Carbon Dioxide 52 H* (22-30) mmol/L BUN 52 H (9-20) mg/dL Creatinine 0.76 (0.66-1.25) mg/dL Glucose 160 H (74-99) mg/dL Calcium 8.9 (8.4-10.2) mg/dL AST 53 (17-59) U/L ALT 62 H (4-49) U/L Alkaline Phosphatase 157 H (38-126) U/L Total Protein 5.7 L (6.3-8.2) g/dL Albumin 2.9 L (3.5-5.0) g/dL Calcium panel 06/27/20 Range/Units 03:28 Calcium 8.9 (8.4-10.2) mg/dL Albumin 2.9 L (3.5-5.0) g/dL Pituitary panel 06/27/20 Range/Units 03:28 Sodium 150 H (137-145) mmol/L Potassium 5.2 H (3.5-5.1) mmol/L Chloride 101 (98-107) mmol/L Carbon Dioxide 52 H* (22-30) mmol/L BUN 52 H (9-20) mg/dL Creatinine 0.76 (0.66-1.25) mg/dL Glucose 160 H (74-99) mg/dL Calcium 8.9 (8.4-10.2) mg/dL Adrenal panel 06/27/20 Range/Units 03:28 Sodium 150 H (137-145) mmol/L Potassium 5.2 H (3.5-5.1) mmol/L Chloride 101 (98-107) mmol/L Carbon Dioxide 52 H* (22-30) mmol/L BUN 52 H (9-20) mg/dL Creatinine 0.76 (0.66-1.25) mg/dL Glucose 160 H (74-99) mg/dL Calcium 8.9 (8.4-10.2) mg/dL Total Bilirubin 0.8 (0.2-1.3) mg/dL AST 53 (17-59) U/L ALT 62 H (4-49) U/L Alkaline Phosphatase 157 H (38-126) U/L Total Protein 5.7 L (6.3-8.2) g/dL Albumin 2.9 L (3.5-5.0) g/dL
[2020-06-27] MEDS ORDERED: ACETAMINOPHEN IV (For NPO) 1,000 MG in EMPTY BAG 1 BAG IVPB ONE (12:00)
[2020-06-27 12:06] LABS: Glucose,Whole Blood 160 mg/dL (75-99)
--- NOTE | 2020-06-27 12:39 | P.PN ---
Subjective Progress Note Date: 06/27/20 Subjective Progress Note Date: 06/26/20 This is a 55-year-old male patient of Dr. Maxwell Alexander with significant past medical history. Patient states he started having symptoms on June 01 and was diagnosed with COVID-19 on June 08. Patient symptoms or body aches and fatigue as well as cough with white sputum production, increasing shortness of breath and measured pulse ox at home which worsened. He complains of headache chills and nausea. Patient presented to [facility] emergency center for evaluation. Patient was afebrile, heart rate 101, blood pressure 114/75, pulse ox 86% on room air. WBC 6.4, hemoglobin 16.2, platelet count 153. D-dimer 0.84. AST 106, ALT 44, alkaline phosphatase 57, LDH 2547. CRP 150. Sodium 129, potassium 4.6, chloride 97, CO2 23, BUN 12 and creatinine 0.84. Blood sugar 114. Chest x-ray reveals extensive pulmonary infiltrates related to pneumonia and ARDS. CTA of the chest reveals no pulmonary embolism. Patchy areas of nodular consolidations in the bilateral lower lobes with groundglass consolidation of the peripheral of the bilateral upper lobes consistent with multifocal infection compatible with Covid pneumonia. No pleural effusions or pneumothorax. Patient has been seen by pulmonary medicine is not a candidate for Remdesivir. Convalescent plasma has been ordered as well as Tocilizumab 1 dose. Patient is currently pulse ox 95% on 15 L nonrebreather. 06/15: Repeat chest x-ray reveals worsening infiltrates. Patient is currently on nonrebreather and nasal cannula with pulse ox of 89%. Patient states that he is not sleeping because of coughing. He continues to have cough, shortness of breath. Noted to be tachypneic. Patient states he is eating okay. Melatonin, Flonase and Tessalon Perles added. Patient has been afebrile, heart rate 87, respiratory rate 32, blood pressure 112/70. Repeat blood work reveals WBC 11.4, hemoglobin 15.4, platelet count 208. D-dimer 0.95. Sodium 136 other electrolytes and renal function normal. Blood sugar 118. AST 96, ALT 67, alkaline phosphatase 70. LDH 2884. C-reactive protein 59.4. 06/16: Patient's pulse ox is 90-92% on high flow nasal cannula at 13 L along with 100% nonrebreather. Patient was seen by Dr. Kern plan is to try and wean off 100% oxygen. Patient states that his breathing is stable today. He continues to have shortness of breath with minimal activity and cough. Patient started on mycelex noemi for thrush. He has been afebrile, heart rate 80, blood pressure 114/69. Repeat chest x-ray reveals improving bilateral lung infiltrates. Patient is continued on dexamethasone, Lovenox and vitamin supplements. 06/17: Yesterday afternoon, received call the patient had subcutaneous emphysema that was new and stat chest x-ray was ordered. This revealed interval development of subcutaneous emphysema within the bilateral neck. Some pneumo mediastinum may be present as the source. Pneumothorax is identified. This was reviewed by Dr. Kern at the time. Last evening at 2200, A-Team was called for puffiness of the neck and shoulder skin. Repeat chest x-ray revealed prominent interval increase in subcutaneous emphysema pattern. Patient was transferred to the intensive care unit. Patient has been seen in the intensive care unit today. He remains on 15 L high flow nasal cannula in addition to 100% nonrebreather facemask. D-dimer is 17.6, LDH 533. Patient remains on Decadron, Lovenox and supplements. Promethazine was added for cough suppression. Subcutaneous emphysema is stable. 06/18 patient evaluated bedside has worsening subcutaneous emphysema. Does appear anxious on examination. He is on Xanax to 0.25 mg twice a day with no improvement in patient's and slightly. We'll repeat chest x-ray does suggest tiny pneumothorax in addition to subcutaneous emphysema. Patient is currently maintaining oxygen saturation on interval 60 L with FiO2 of 90% with a nonrebreather 100%. Minimum exertion is causing desaturation. Patient appears to have worsening inflammation markers including worsening LDH and liver enzymes. Pulmonary care for management of the Covid. Continues to keep patient on dexamethasone, convalescent plasma. Patient is not a candidate for remdesivir. We will start patient on Lexapro 10 mg daily at bedtime to help with anxiety. IV fluids switch to D5NS as patient is not eating being on mask and is hungry. 06/19 patient evaluated bedside has worsening subcutaneous emphysema, facial swelling and pneumomediastinum. Patient is alert and keeping saturation 90-92% on BiPAP. He appears anxious and is breathing at 26 respiratory rate per minute. Blood pressure 1:30/74 heart rate of 113.chest x-rays consistent with bilateral subcutaneous emphysema and pneumomediastinum any apical pneumothorax dizzy and chest tube at this point. On evaluation patient's labs patient's leukocytosis and 19 sodium stable at 1:30, creatinine 0.67 and ferritin is 3144 elevated liver enzymes early at 7846 increased from prior low albumin. patient continues to have increased in size the despite initiation of Remeron will increase Remeron to 30 mg at bedtime Xanax increased to 0.5 twice a day from 0.25. Ativan can be given if patient is unable to tolerate oral medi cation. Plan to start patient on TPN tomorrow. Low sodium could be a results of D5W 06/20: Repeat blood work reveals WBC 29.6, hemoglobin 17, platelet count 124. D- dimer greater than 35. Sodium 132, potassium 5.4, chloride 95, CO2 31, BUN 28 creatinine 0.75. Blood sugar 162. AST 131, ALT 92, alkaline phosphatase 310. LDH 9901. CK 501. C-reactive protein 3.7. Patient became more hypoxic during the night with pulse ox down to the low 70s with mental status changes. Patient was intubated and placed on mechanical ventilation. Tidal volume 400, FiO2 of 75% and PEEP of 18. He is on propofol, Nimbex, levo fed was started and he is status post 2 L of IV fluid. He has on a fentanyl drip. Patient has extensive subcutaneous emphysema. Remeron and clotrimazole discontinued 06/21: Patient remains intubated and on mechanical ventilation. Tidal volume 400, FiO2 decreased from 85-80% this morning, PEEP 16. Patient had bilateral chest tubes placed for pneumothorax bilaterally. This was done last evening. Patient is currently on Nimbex, fentanyl, levo fed. He is on tube feedings at goal. Temperature max 100.2, heart rate 107, respiratory rate 33, blood pressure 118/62, pulse ox 90% with goal to keep above 85%. Repeat blood work reveals WBC 15.9, hemoglobin 14.6, platelet count 96. Sodium 137, potassium 5.1, chloride 100, CO2 39, BUN 26 and creatinine 0.69. Phosphorus 7.3. Magnesium 3.0. Total bilirubin 0.7, AST 59, ALT 61, alkaline phosphatase 190. D-dimer 14.6. LDH 3891. CK 902. C-reactive protein 4.1. Repeat chest x-ray reveals persistent severe bilateral subcutaneous emphysema limiting assessment. Underlying groundglass changes persist. Bilateral chest tubes. Right apical pneumothorax smaller 6 mm versus 2 cm previously. Left apical pneumothorax no l onger seen. Better demonstrated pneumomediastinum though suspected to have decreased compared to prior exam. Patient does have less subcutaneous emphysema. 06/22: he remains intubated and on mechanical ventilation with tidal volume 400, FiO2 was 100% this morning and decrease to 70, PEEP is 20. Patient is on propofol and fentanyl as well as Nimbex and bicarb drip. He is not on norepinephrine. Patient is on tube feedings at goal. He remains with bilateral chest tubes in place, no air leak. He has been afebrile, heart rate 108, respiratory rate 34, a pressure 108/61, pulse ox is 90%. Repeat blood work reveals WBC 20, hemoglobin 13.7. D-dimer 10.74. CO2 42, BUN 31 creatinine 0.63. Blood sugars running between 130s to 177. Repeat chest x-ray reveals stable findings. patient remains intubated with a tidal volume of 400 FiO2 of 65% PEEP 20. Patient continues to remain sedated and paralyzed on propofol, fentanyl Precedex and Pneumovax. Continues to have chest tubes with slight air leaks noted. Chest x-ray continues to remain the same with bilateral patchy infiltrate and subcutaneous emphysema. Vitals this morning suggests tachycardia 120 respiratory rate 34 saturating 90% on 65% FiO2 blood pressure 128/71 labs suggestive leukocytosis of 17.6 hemoglobin 12.9 ABG drawn at this morning suggests a pH of 7.3 pCO2 86 pO2 77 bicarb 50. Patient's LDH is 12,748. CRP 7. . 06/24 patient remains intubated and mechanically ventilated sedated and paralyzed on assist control with a tidal volume of 400 FiO2 60% PEEP on 20 respiratory rate of 14. ABG done this morning suggests a pO2 of 75 pCO2 83. 7.39. Patient continues to remain on propofol and Pneumovax and fentanyl. The bicarb drip discontinued. 10 chest x-ray shows bilateral subcutaneous emphysema with bila teral patchy infiltrates. Concern for small right apical pneumothorax measuring 1.2 cm versus 9 mm previously. Patient continues to have bilateral chest tubes, minimally leak noted in the right-sided chest tube. No air leak on the left- sided chest tube. Patient remains on enteral feeding. In assessment of patient's blood work slight improvement in CRP noted at 4.7H improved to 2733 liver enzymes continue to rise with AST of 90 ALT 105 alkaline phosphatase 2:30. Bicarb increased to 48. Bicarb drip discontinued. Potassium is noted to be high. One dose of Kayexalate ordered 06/25: Patient remains intubated and mechanically ventilated sedated on pressors on assist control and tidal volume of 400 FiO2 PEEP of 20. Respirations of 14. Patient continues to remain on propofol and Pneumovax and fentanyl. The bicarb drip has been discontinued. Today's chest x-ray shows bilateral subcutaneous emphysema bilateral patchy infiltrates they're similar to the prior exam. Patient continues to have bilateral chest tubes. A 14 Angiocath was inserted into his neck to help relieve subcutaneous emphysema. Patient remains on enternal feeding. WCC 60.4, hemoglobin 12.1, platelets 159, potassium 5.1, BUN 48, creatinine 0.63. ABG pH 7.38, pCO2 87, pO2 61, HCO3 51, ABG O2 sat 91. 06/26: Maintained intubated and mechanically ventilated sedated and paralyzed on assist control with FiO2 on 65% and a PEEP of 18. WBC 17, hemoglobin 11.6, potassium 5.3, BUN 48, creatinine 0.64 d-dimer 3.67,. Temperature 99.9. Patient continues to remain on propofol and Pneumovax and fentanyl. Chest x-ray findings similar to prior exam. Angiocath to the left subclavian to help with subcutaneous emphysema. Substance emphysema is improved compared to yesterday with less edema to face and neck. Patient remains on enternal feeding. Bilateral chest tubes in place and draining. 06/27: Patient remain intubated and sedated still required high FiO2 with higher PEEP to keep his pulse ox above 90 percentile. Patient subcutaneous emphysema slightly but better today there is no more swelling and eyelid this point. Patient still sedated. Patient will be going for trach and PEG tube tomorrow, patient probably will require longer term vent management. REVIEW OF SYSTEMS Could not be obtained PHYSICAL EXAMINATION Gen: This is a 55-year-old male. He is resting in ICU bed appears to be comfortable. Facial swelling noted. No respiratory distress noted. HEENT: Head is atraumatic, normocephalic. NECK: Subcutaneous emphysema. chest : Chest tube noted with minimal air leak noted on the right chest tube no air leak noted on the left chest tube Cardiac: Regular rate S1-S2 no S3 or JVD. Abdomen slightly distended mild bruise positive bowel sounds. Extremities trace edema bilaterally. Neurologic exam patient is sedated currently on mechanical ventilation. ASSESSMENT AND PLAN 1. Acute hypoxic respiratory failure secondary to Covid 19 pneumonia requiring intubation and mechanical ventilation on 06/19. Patient has been seen by pulmonary medicine status post Convalescent plasma and Tocilizumab 1 dose. Continue dexamethasone 6 mg IV every 24 hours, Lovenox 40 mg subcu twice daily, vitamins, cefepime 2 g IV piggyback every 8 hours. Patient is off vasopressors. Continue propofol, fentanyl, Precedex, Nimbex. Patient still have subcutaneous emphysema with bilateral pneumothorax with 2 chest tube in. Patient be going for trach and PEG tube tomorrow. 2. Elevated inflammatory markers secondary to Covid 19. Continue to monitor. Downtrending, still mildly elevated and patient still sick and prognosis very guarded. 3. Mild hyponatremia. Continue IV fluids. 4. Elevated d-dimer. Acute pulmonary embolism has been ruled out by CTA. No sign of PE patient still on anticoagulation 5. Lymphocytopenia secondary to Covid 19. 6. Bilateral pneumothorax: Had chest tube bilaterally still under waterseal drain. 7. Subcutaneous emphysema and pneumomediastinum, stable WITH small PNEUMOTHO RAX Status post bilateral chest tube insertion on continuous wall suction with mild air leak on the right chest tube. Monitor for resolution of subcutaneous emphysema 8. Thrombocytopenia secondary to Covid. Continue to monitor. 9. Metabolic acidosis. Currently have metabolic alkalosis bicarb drip held 10. Hyperglycemia: Remain on Accu-Chek with sliding scales coverage. 11. DVT prophylaxis. Lovenox. 12 GI prophylaxis. Protonix daily. Prognosis is guarded. Schedule and trach tomorrow patient is still full code currently patient will require probably long-term vent management and select specialty one of the places. Objective - Vital Signs Vital signs: Vital Signs Temp 100.8 F H 06/26/20 16:00 Pulse 126 H 06/27/20 06:00 Resp 34 H 06/27/20 06:00 BP 134/80 06/27/20 06:00 Pulse Ox 91 L 06/27/20 06:00 Intake & Output 06/26/20 06/26/20 06/27/20 06:59 18:59 06:59 Intake Total 3750.340 1785.090 1048.027 Output Total 820 1291 660 Balance 1032.529 379.090 388.027 Weight 70 kg 74.5 kg Intake: IV 650 850 333 0.9 50 Cefepime 2 gm In Sodium 100 200 Chloride 0.9% 100 ml @ 25 mls/hr IVPB Q8HR [facility] Rx# :[id number] Clevidipine Butyrate 25 33 mg In Empty Bag 1 bag @ 1 MG/HR 2 mls/hr IV .Q24H [facility] Rx#:[id number] Dextrose 5% in Water 1, 550 650 250 000 ml @ 25 mls/hr IV . Q24H [facility] with Sodium Bicarb (1 Meq/ml) 150 ml Rx#:[id number] Intake, IV Titration 804.529 708.090 343.027 Amount Cefepime 2 gm In Sodium 100 Chloride 0.9% 100 ml @ 25 mls/hr IVPB Q8HR [facility] Rx# :[id number] Cisatracurium 200 mg In 116.205 144.018 Sodium Chloride 0.9% 180 ml @ 1 MCG/KG/MIN 3.81 mls/hr IV .Q24H [facility] Rx#: [id number] Clevidipine Butyrate 25 49.2 99.867 50 mg In Empty Bag 1 bag @ 1 MG/HR 2 mls/hr IV .Q24H [facility] Rx#:[id number] Dextrose 5% in Water 1, 100 000 ml @ 50 mls/hr IV . Q23H [facility] with Sodium Bicarb (1 Meq/ml) 150 ml Rx#:[id number] fentaNYL (PF). 1,000 mcg 284.785 78.105 193.027 In Sodium Chloride 0.9% 80 ml @ Per Protocol IV . Q0M [facility] Rx#:[id number] propofoL 1,000 mg In 354.339 186.1 100 Empty Bag 1 bag @ Titrate IV .Q0M [facility] Rx#: [id number] Tube Feeding 308 112 252 Other 90 120 Output: Chest Tube Drainage 15 170 Chest Tube Left 5 60 Chest Tube Right 10 110 Urine 805 1121 660 Other: Voiding Method Indwelling Catheter Indwelling Catheter Indwelling Catheter # Bowel Movements 1 ABP, PAP, CO, CI - Last Documented Arterial Blood Pressure 121/65 - Labs CBC & Chem 7: 06/27/20 03:28 06/27/20 03:28 Labs: Abnormal Lab Results - Last 24 Hours (Table) 06/26/20 06/26/20 06/26/20 Range/Units 06:20 11:26 17:20 WBC (3.8-10.6) k/uL RBC (4.30-5.90) m/uL Hgb (13.0-17.5) gm/dL Hct (39.0-53.0) % Plt Count (150-450) k/uL Neutrophils # (1.3-7.7) k/uL Lymphocytes # (1.0-4.8) k/uL D-Dimer (<0.60) mg/L FEU ABG pCO2 (35-45) mmHg ABG pO2 (83-108) mmHg ABG HCO3 (21-25) mmol/L ABG Total CO2 (19-24) mmol/L ABG O2 Saturation (94-97) % Sodium (137-145) mmol/L Potassium (3.5-5.1) mmol/L Carbon Dioxide (22-30) mmol/L BUN (9-20) mg/dL Glucose (74-99) mg/dL POC Glucose (mg/dL) 157 H 161 H 218 H (75-99) mg/dL ALT (4-49) U/L Alkaline Phosphatase (38-126) U/L Lactate Dehydrogenase (313-618) U/L C-Reactive Protein (<1.0) mg/dL Total Protein (6.3-8.2) g/dL Albumin (3.5-5.0) g/dL 06/26/20 06/27/20 06/27/20 Range/Units 23:54 03:28 03:28 WBC 13.5 H (3.8-10.6) k/uL RBC 3.94 L (4.30-5.90) m/uL Hgb 11.9 L (13.0-17.5) gm/dL Hct 38.3 L (39.0-53.0) % Plt Count 148 L (150-450) k/uL Neutrophils # 12.0 H (1.3-7.7) k/uL Lymphocytes # 0.8 L (1.0-4.8) k/uL D-Dimer (<0.60) mg/L FEU ABG pCO2 (35-45) mmHg ABG pO2 (83-108) mmHg ABG HCO3 (21-25) mmol/L ABG Total CO2 (19-24) mmol/L ABG O2 Saturation (94-97) % Sodium 150 H (137-145) mmol/L Potassium 5.2 H (3.5-5.1) mmol/L Carbon Dioxide 52 H* (22-30) mmol/L BUN 52 H (9-20) mg/dL Glucose 160 H (74-99) mg/dL POC Glucose (mg/dL) 147 H (75-99) mg/dL ALT 62 H (4-49) U/L Alkaline Phosphatase 157 H (38-126) U/L Lactate Dehydrogenase 2347 H (313-618) U/L C-Reactive Protein 8.8 H (<1.0) mg/dL Total Protein 5.7 L (6.3-8.2) g/dL Albumin 2.9 L (3.5-5.0) g/dL 06/27/20 06/27/20 06/27/20 Range/Units 03:28 05:30 06:11 WBC (3.8-10.6) k/uL RBC (4.30-5.90) m/uL Hgb (13.0-17.5) gm/dL Hct (39.0-53.0) % Plt Count (150-450) k/uL Neutrophils # (1.3-7.7) k/uL Lymphocytes # (1.0-4.8) k/uL D-Dimer 4.69 H (<0.60) mg/L FEU ABG pCO2 87 H* (35-45) mmHg ABG pO2 62 L (83-108) mmHg ABG HCO3 50 H* (21-25) mmol/L ABG Total CO2 52 H (19-24) mmol/L ABG O2 Saturation 91.5 L (94-97) % Sodium (137-145) mmol/L Potassium (3.5-5.1) mmol/L Carbon Dioxide (22-30) mmol/L BUN (9-20) mg/dL Glucose (74-99) mg/dL POC Glucose (mg/dL) 146 H (75-99) mg/dL ALT (4-49) U/L Alkaline Phosphatase (38-126) U/L Lactate Dehydrogenase (313-618) U/L C-Reactive Protein (<1.0) mg/dL Total Protein (6.3-8.2) g/dL Albumin (3.5-5.0) g/dL
--- NOTE | 2020-06-27 12:44 | PCN ---
PROCEDURE NOTE PROCEDURE PERFORMED: Right radial arterial line placement. PREOP DIAGNOSIS: Covid-19 pneumonia, acute hypoxic respiratory failure with ventilator dependence. POSTOP DIAGNOSIS: Covid-19 pneumonia, acute hypoxic respiratory failure with ventilator dependence. ARTERIAL LINE PLACEMENT: Indications: Hemodynamic monitoring. A time-out was completed verifying correct patient, procedure, site, positioning, and implant(s) or special equipment if applicable. Kennedy's test was performed to ensure adequate perfusion. The patient's right wrist was prepped and draped in sterile fashion. 1% Lidocaine was used to anesthetize the area. An 18G Arrow arterial line was introduced into the radial artery. The catheter was threaded over the guide wire and the needle was removed with appropriate pulsatile blood return. Blood loss was minimal. The catheter was then sutured in place to the skin and a sterile dressing applied. Perfusion to the extremity distal to the point of catheter insertion was checked and found to be adequate. The patient tolerated the procedure well and there were no complications. The right radial arterial line was placed uneventfully. Patient tolerated procedure very well. No immediate complications. Good waveform was noted. Line was flushed and sutured in place. Sterile dressing was applied. MMODL / IJN: [id number] /
[2020-06-27 18:02] LABS: Glucose,Whole Blood 155 mg/dL (75-99)
[2020-06-27] MEDS: ACETAMINOPHEN TAB 325 MG TAB PO PRN (18:10)
[2020-06-27] MEDS ORDERED: VANCOMYCIN IV PER PHARMACY 1 EACH MISC MISCELLANE PRN (21:34)
[2020-06-27] MEDS ORDERED: VANCOMYCIN 1,500 MG in SODIUM CHLORIDE 0.9% 250 ML IVPB SCH (22:00)
--- NOTE | 2020-06-27 22:05 | PN ---
PROGRESS NOTE DATE OF SERVICE: 06/27/2020 REASON FOR FOLLOWUP: Pneumonia. INTERVAL HISTORY: The patient has been spiking a fever again today with a temperature of 102 degrees Fahrenheit. The patient is tachycardic and has some tachypnea. Hemodynamically stable and not on any pressor support, though. No significant purulent secretions through the ET or any diarrhea has been reported. PHYSICAL EXAMINATION: Blood pressure is 107/70 with a pulse of 112, temperature 102.2. He is 91% on 55% FiO2. General description is a middle-aged male intubated on the vent. RESPIRATORY SYSTEM: Unlabored breathing with decreased intensity of breath sounds. No wheeze. HEART: S1, S2. Regular rate and rhythm. ABDOMEN: Soft. No tenderness. LABS: Hemoglobin is 11.9, white count 13.5, BUN of 52, creatinine 0.76. DIAGNOSTIC IMPRESSION AND PLAN: Patient with pneumonia. Sputum has been MSSA and Moraxella. The patient is covered with cefepime. Still running a fever. Will repeat cultures, add vancomycin to cover for the Gram-positive and monitor his clinical course closely. MMODL / IJN: [id number] /
[2020-06-27 23:40] LABS: Glucose,Whole Blood 189 mg/dL (75-99)
[2020-06-28] MEDS: INSULIN ASPART (NovoLOG) 100 UNIT/ML VIAL SQ SCH ×4 (00:02→19:42)
[2020-06-28 00:36] LABS: Amorphous Sediment,Urine Few /hpf; Appearance,Urine Turbid (Clear); Bacteria,Urine Rare /hpf; Bilirubin,Urine Negative (Negative); Blood,Urine Moderate (Negative); Color,Urine Yellow; Glucose,Urine (UA) Negative (Negative); Granular Casts,Urine 7 /lpf (0); Ketones,Urine Negative (Negative); Leukocyte Esterase,Urine Negative (Negative); Mucus,Urine Rare /hpf; Nitrite,Urine Negative (Negative); PH, Urine 5.5 (5.0-8.0); Protein,Urine 2+ (Negative); RBC,Urine 14 /hpf (0-5); Specific Gravity,Urine 1.025 (1.001-1.035); Squamous Epithelial Cell,Urine 5 /hpf (0-4); Urobilinogen,Urine <2.0 mg/dL (<2.0); WBC,Urine 9 /hpf (0-5)
[2020-06-28] MEDS: fentaNYL (PF). 1,000 MCG in SODIUM CHLORIDE 0.9% 80 ML IV SCH ×5 (01:21→20:59)
[2020-06-28] MEDS ORDERED: ACETAMINOPHEN TAB 325 MG TAB ONE (04:25)
[2020-06-28 05:17] LABS: Basophils # (A) 0.1 k/uL (0-0.2); Basophils % (A) 1 %; Eosinophils % (A) 0 %; HCT 33.8 % (39.0-53.0); HGB 10.8 gm/dL (13.0-17.5); Hypochromasia Slight; Lymphocytes # (A) 1.2 k/uL (1.0-4.8); Lymphocytes % (A) 7 %; MCH 30.8 pg (25.0-35.0); MCHC 31.9 g/dL (31.0-37.0); MCV 96.3 fL (80.0-100.0); Mean Platelet Volume 10.3; Monocytes # (A) 0.5 k/uL (0-1.0); Monocytes % (A) 3 %; Neutrophils # (A) 15.1 k/uL (1.3-7.7); Neutrophils % (A) 89 %; Platelet Count 144 k/uL (150-450); RDW 14.8 % (11.5-15.5)
[2020-06-28 05:31] LABS: Albumin 2.5 g/dL (3.5-5.0); Calcium 8.7 mg/dL (8.4-10.2); Potassium 4.5 mmol/L (3.5-5.1); Total Bilirubin 0.6 mg/dL (0.2-1.3); Total Protein 5.1 g/dL (6.3-8.2)
--- NOTE | 2020-06-28 06:08 | XR ---
EXAMINATION TYPE: XR chest 1V portable DATE OF EXAM: 06/28/2020 CLINICAL HISTORY: Difficulty breathing , subcutaneous emphysema, pneumomediastinum progress study. TECHNIQUE: Single AP portable upright view of the chest is obtained. COMPARISON: Chest x-ray from one day earlier and older studies. FINDINGS: Stable endotracheal and orogastric tubes. Stable bilateral apical positioned chest tubes. Stable right-sided PICC line. Persistent overlying subcutaneous emphysema. Small right apical pneumothorax slightly more prominent versus most recent prior. Multifocal and confluent opacities bilaterally remain present, greatest in the lower lungs, right more prominent than left. Suggestion of new cystic lesion in the right lower l obe. Pneumomediastinum redemonstrated seen best along left heart border and aortic knob. Cardiac silh ouette size stable and within normal limits. Osseous structures are intact. IMPRESSION: Persistent pneumomediastinum. Overlying subcutaneous emphysema redemonstrated. This shows continued improvement over older studies. Persistent bilateral multifocal and confluent opacities mo st prominent in the lower lungs consistent with covid-19 infection redemonstrated. No significant int erval change except for suggestion of new cystic change possible bullous formation in the right lung base. Bilateral chest tubes with small right apical pneumothorax increased in size slightly from one day earlier.
[2020-06-28 06:13] LABS: ABG Base Excess 22.8 mmol/L; ABG Oxygen Saturation 91.4 % (94-97); ABG PH 7.39 (7.35-7.45); ABG PO2 62 mmHg (83-108); ABG TCO2 50 mmol/L (19-24); Allen Test Performed? Yes
[2020-06-28] MEDS: ARTIFICIAL TEARS-HYPROMELLOSE DROPS 15 ML BTL BOTH EYES SCH ×6 (06:13→23:58)
[2020-06-28 06:22] LABS: ABG HCO3 48 mmol/L (21-25); ABG PCO2 79 mmHg (35-45)
--- NOTE | 2020-06-28 07:27 | P.PN ---
Subjective Progress Note Date: 06/28/20 Principal diagnosis: Acute COVID-19 pneumonia, pneumomediastinum, extensive subcutaneous emphysema, acute hypoxic respiratory failure, elevated inflammatory markers secondary to Co vid-19, leukocytosis, thrombocytopenia, hypotension post intubation, respiratory acidosis POD #8 placement of bilateral chest tubes by Dr. Dominique The patient remains laying in bed in the intensive care unit, remains intubated, sedated, and paralyzed. Bilateral chest tubes remain in place, continuous air leak now present in the right chest tube, no air leaks present in left chest tube, minimal drainage, subcutaneous emphysema remains present, continues to be less everyday. CXR reviewed, slight increase in right pneumothorax. Ventilator changes continued to be made by pulmonology, currently on 55% FiO2 and 18 PEEP. WBC 17.0, D-dimer 3.04. Tmax 102.3F last 24 hours. Suputum culture positive for MSSA, moraxella, remains on IV cefepime, vanco added again by ID. Remains sinus tach with HR low 100s. Remains on fentanyl, propofol and nimbex. Objective - Vital Signs Vital signs: Vital Signs Temp 100.9 F H 06/28/20 04:00 Pulse 92 06/28/20 07:00 Resp 35 H 06/28/20 07:00 BP 113/64 06/28/20 04:00 Pulse Ox 88 L 06/28/20 07:00 Intake & Output 06/27/20 06/28/20 06/28/20 18:59 06:59 18:59 Intake Total 4434.555 8223.060 41 Output Total 1885 1080 75 Balance -604.206 98.060 -34 Weight 74.5 kg 80.5 kg Intake: IV 236 146 13 0.9 KVO 110 10 Cefepime 2 gm In Sodium 200 Chloride 0.9% 100 ml @ 25 mls/hr IVPB Q8HR [facility] Rx# :[id number] Clevidipine Butyrate 25 3 mg In Empty Bag 1 bag @ 1 MG/HR 2 mls/hr IV .Q24H [facility] Rx#:[id number] pressure bag 33 36 3 Intake, IV Titration 713.794 576.060 Amount ACETAMINOPHEN IV (For NPO 100 ) 1,000 mg In Empty Bag 1 bag @ 400 mls/hr IVPB ONCE ONE Rx#:[id number] Cefepime 2 gm In Sodium 100 Chloride 0.9% 100 ml @ 25 mls/hr IVPB Q8HR [facility] Rx# :[id number] Cisatracurium 200 mg In 213.170 Sodium Chloride 0.9% 180 ml @ 1 MCG/KG/MIN 3.81 mls/hr IV .Q24H [facility] Rx#: [id number] Clevidipine Butyrate 25 50.5 mg In Empty Bag 1 bag @ 1 MG/HR 2 mls/hr IV .Q24H [facility] Rx#:[id number] fentaNYL (PF). 1,000 mcg 193.040 262.890 In Sodium Chloride 0.9% 80 ml @ Per Protocol IV . Q0M [facility] Rx#:[id number] propofoL 1,000 mg In 270.254 100 Empty Bag 1 bag @ Titrate IV .Q0M [facility] Rx#: [id number] Tube Feeding 331 336 28 Other 120 Output: Chest Tube Drainage 200 170 Chest Tube Left 20 Chest Tube Right 200 150 Urine 1685 910 75 Other: Voiding Method Indwelling Catheter Indwelling Catheter ABP, PAP, CO, CI - Last Documented Arterial Blood Pressure 121/67 - Exam CONSTITUTIONAL: Remains sedated and paralyzed on mechanical ventilation EYES: Subcutaneous emphysema resolved over both eyes ENT: Moist mucous membranes without oral lesions present NECK: No masses, no bruits, trachea midline RESPIRATORY: Lungs sounds diminished to auscultation bilaterally. Currently on mechanical ventilation, assist control mode, FiO2 55%, PEEP 18, tidal volume 400, respiratory rate 34. ABGs this am on those settings 7.39/79/62/48/92%/BE 22.8. 8.0 ET tube present, 25 at the lip. Subcutaneous emphysema present to upper chest, neck, less than yesterday. CARDIOVASCULAR: S1, S2 present. Tachycardic but regular rate and rhythm, sinus tach on telemetry with heart rate in the low 100s. Palpable peripheral pulses bilaterally. SCDs present. GASTROINTESTINAL: Abdomen soft, nondistended without masses or organomegaly noted. Active bowel sounds present 4 quadrants. OG tube present, tube feeding infusing at 28 ml/hr. Positive bowel movement GENITOURINARY: Indwelling catheter present draining clear, yellow urine. Urine output 50-125 mL per hour INTEGUMENTARY: Skin is warm and dry NEUROLOGIC: Unable to assess as patient is currently receiving IV paralytic. Train of 4 per nursing INVASIVE LINES/TUBES: Right PICC line present. Right and left pleural chest tubes present, continuous air leak noted in right chest tube, no air leak present in left chest tube, minimal drainage. - Allied health notes Allied health notes reviewed: nursing - Labs CBC & Chem 7: 06/28/20 04:10 06/28/20 04:10 Labs: Abnormal Lab Results - Last 24 Hours (Table) 06/27/20 06/27/20 06/27/20 Range/Units 12:05 18:01 23:39 WBC (3.8-10.6) k/uL RBC (4.30-5.90) m/uL Hgb (13.0-17.5) gm/dL Hct (39.0-53.0) % Plt Count (150-450) k/uL Neutrophils # (1.3-7.7) k/uL D-Dimer (<0.60) mg/L FEU ABG pCO2 (35-45) mmHg ABG pO2 (83-108) mmHg ABG HCO3 (21-25) mmol/L ABG Total CO2 (19-24) mmol/L ABG O2 Saturation (94-97) % Sodium (137-145) mmol/L Carbon Dioxide (22-30) mmol/L BUN (9-20) mg/dL Creatinine (0.66-1.25) mg/dL Glucose (74-99) mg/dL POC Glucose (mg/dL) 160 H 155 H 189 H (75-99) mg/dL Total Protein (6.3-8.2) g/dL Albumin (3.5-5.0) g/dL Urine Protein (Negative) Urine Blood (Negative) Urine RBC (0-5) /hpf Urine WBC (0-5) /hpf Ur Squamous Epith Cells (0-4) /hpf Amorphous Sediment (None) /hpf Urine Bacteria (None) /hpf Urine Mucus (None) /hpf 06/28/20 06/28/20 06/28/20 Range/Units 00:00 04:10 04:10 WBC 17.0 H (3.8-10.6) k/uL RBC 3.50 L (4.30-5.90) m/uL Hgb 10.8 L (13.0-17.5) gm/dL Hct 33.8 L (39.0-53.0) % Plt Count 144 L (150-450) k/uL Neutrophils # 15.1 H (1.3-7.7) k/uL D-Dimer (<0.60) mg/L FEU ABG pCO2 (35-45) mmHg ABG pO2 (83-108) mmHg ABG HCO3 (21-25) mmol/L ABG Total CO2 (19-24) mmol/L ABG O2 Saturation (94-97) % Sodium 151 H (137-145) mmol/L Carbon Dioxide 46 H* (22-30) mmol/L BUN 66 H (9-20) mg/dL Creatinine 1.31 H (0.66-1.25) mg/dL Glucose 143 H (74-99) mg/dL POC Glucose (mg/dL) (75-99) mg/dL Total Protein 5.1 L (6.3-8.2) g/dL Albumin 2.5 L (3.5-5.0) g/dL Urine Protein 2+ H (Negative) Urine Blood Moderate H (Negative) Urine RBC 14 H (0-5) /hpf Urine WBC 9 H (0-5) /hpf Ur Squamous Epith Cells 5 H (0-4) /hpf Amorphous Sediment Few H (None) /hpf Urine Bacteria Rare H (None) /hpf Urine Mucus Rare H (None) /hpf 06/28/20 06/28/20 Range/Units 04:10 06:06 WBC (3.8-10.6) k/uL RBC (4.30-5.90) m/uL Hgb (13.0-17.5) gm/dL Hct (39.0-53.0) % Plt Count (150-450) k/uL Neutrophils # (1.3-7.7) k/uL D-Dimer 3.04 H (<0.60) mg/L FEU ABG pCO2 79 H* (35-45) mmHg ABG pO2 62 L (83-108) mmHg ABG HCO3 48 H* (21-25) mmol/L ABG Total CO2 50 H (19-24) mmol/L ABG O2 Saturation 91.4 L (94-97) % Sodium (137-145) mmol/L Carbon Dioxide (22-30) mmol/L BUN (9-20) mg/dL Creatinine (0.66-1.25) mg/dL Glucose (74-99) mg/dL POC Glucose (mg/dL) (75-99) mg/dL Total Protein (6.3-8.2) g/dL Albumin (3.5-5.0) g/dL Urine Protein (Negative) Urine Blood (Negative) Urine RBC (0-5) /hpf Urine WBC (0-5) /hpf Ur Squamous Epith Cells (0-4) /hpf Amorphous Sediment (None) /hpf Urine Bacteria (None) /hpf Urine Mucus (None) /hpf Microbiology - Last 24 Hours (Table) 06/27/20 18:32 Urine Culture - Preliminary Urine,Catheterized - Imaging and Cardiology Chest x-ray: report reviewed, image reviewed Assessment and Plan Assessment: 1. Acute COVID-19 pneumonia 2. Pneumomediastinum, extensive subcutaneous emphysema, S/P placement of right and left pleural chest tubes by pulmonology, S/P placement of 14g angiocath to left neck 3. Acute hypoxic respiratory failure, remains on mechanical ventilation 4. Elevated inflammatory markers secondary to Covid 5. Leukocytosis, febrile, sputum culture from 06/21/20 growing MSSA and morexella 6. Thrombocytopenia, resolved 6. Hypotension post intubation, currently off pressors and hypertensive requiring cleviprex 7. Respiratory acidosis Plan: 1. Continue both chest tubes to continuous wall suction, monitor for resolution of subcutaneous emphysema, airleak. No plans to remove chest tube anytime soon 2. Mechanical ventilation, sedation, paralytic, antibiotics, covid managment per paleology professor. Sounds like pulmonology is considering trach and peg soon 3. No thoracic surgery is warranted 4. GI/DVT prophylaxis 5. Will monitor daily CXR 6. Patient remains critically ill with poor prognosis Time with Patient: Greater than 30
[2020-06-28 08:18] LABS: Glucose,Whole Blood 146 mg/dL (75-99)
[2020-06-28] MEDS: CEFEPIME 2 GM in SODIUM CHLORIDE 0.9% 100 ML IVPB SCH ×3 (08:27→23:57)
[2020-06-28] MEDS: DEXTROSE 5% IN WATER 1,000 ML IV SCH ×2 (08:27→08:28)
[2020-06-28] MEDS: DEXAMETHASONE SOD PHOSPHATE 10 MG/ML 1 ML VIAL IV SCH (08:28)
[2020-06-28] MEDS: PANTOPRAZOLE 40 MG/10 ML VIAL IVP SCH (08:28)
[2020-06-28] MEDS: LACTULOSE 20 GM/30 ML CUP PO SCH ×2 (08:28→20:41)
[2020-06-28] MEDS: CHOLECALCIFEROL 25 MCG (1000 IU) TABLET PO SCH (08:28)
[2020-06-28] MEDS: ZINC SULFATE 220 MG CAP PO SCH (08:28)
[2020-06-28] MEDS: CHLORHEXIDINE GLUCONATE 15 ML CUP MUCOUS MEM SCH ×2 (08:28→20:42)
[2020-06-28] MEDS: CISATRACURIUM 200 MG in SODIUM CHLORIDE 0.9% 180 ML IV SCH ×2 (08:28→19:40)
[2020-06-28] MEDS: ASCORBIC ACID 500 MG TAB PO SCH (08:29)
[2020-06-28] MEDS: ENOXAPARIN 40 MG/0.4 ML SYRINGE SQ SCH (08:29)
--- NOTE | 2020-06-28 10:05 | P.PN ---
Subjective Progress Note Date: 06/28/20 Principal diagnosis: COVID 19 pneumonia Patient was reevaluated today on 06/23/2020, remains intubated and mechanically ventilated. Remains in the ICU, sedated and paralyzed. He is on assist control rate of 34, tidal volume is 400 FiO2 is 65 and PEEP is 20. ABG showed a pO2 of 77 pCO2 of 86 pH of 7.37. Patient remains on propofol at 75, fentanyl S3, pleasant Pleurx at 8 mg per hour, Nimbex at 2. Plan to give the patient a trial of Nimbex holiday today if possible. Remains on Nepro 17/17. Chest x-ray is basically the same, continues to show bilateral patchy infiltrates and subcutaneous emphysema. Patient is hemodynamically stable, not requiring any pressors, however he is a bit tachycardic rate is 120. Both sided chest tubes are about the same, and no leaks noted. Basic metabolic profile is normal, bicarb is 45. Patient remains on bicarb drip. D-dimer is 4.66. WBC count is 17.6 hemoglobin is 12.9. LDH remains high at 2747, C-reactive protein is 7 and CPK is 178. Patient was reevaluated today on 06/24/20, remains in the ICU, intubated and mechanically ventilated, sedated and paralyzed. He is on assist control rate of 34 tidal volume is 400 FiO2 of 65% and PEEP remains at 20. Peak airway pressure is about 39 and plateau pressure is 35. ABG showed a pO2 of 75 pCO2 83 pH of 7.39. Hence I decreased the FiO2 down to 60% kept him on the same PEEP/20. Patient remains on propofol at 75 Nimbex at 2 fentanyl S3, proximal at 5 mg per hour and he is also on a bicarb drip which I have discontinued today considering his ABG is showing metabolic compensation significant to his respiratory acidosis. Chest x-ray continues to show bilateral subcutaneous emphysema, improved, and bilateral patchy infiltrates I believe a bit better. Chest tubes remain in place, minimal air leak noted in the right-sided chest tube. No air leak noted in the left sided chest tube. Patient remains on enteral feeding, he is receiving Nepro 17/17. WBC count today is 21.7. D-dimer is 3.96. Electrolytes are normal bicarb is 48 BUN is 48 creatinine 0.60. LDH remains high at 2733 however it was as high as 10,002 days ago. C-reactive protein is down to 4.7. Reevaluated today on 06/25/2020, patient remains intubated and mechanically ventilated. He is on assist control rate of 34 tidal volume is 400 FiO2 60% PEEP remains at 20. His ABG today showed a pO2 of 61 pH of 7.38 and pCO2 of 87. Patient continues to have 2 chest tubes for his barotrauma, no air leak noted in the left sided chest tube, but intermittently noted in the right sided chest tube. Patient remains on D5W with bicarbonate 50 ML per hour propofol at 75 clevidipine 2 mg/h Nimbex at 2 fentanyl 3 mcg/kg/h. Chest x-ray continues to show bilateral infiltrates consistent with COVID-19 pneumonia, possibly a small right-sided apical pneumothorax is noted on the chest x-ray today. Left lung is fully expanded. Continues to have a pneumomediastinum and he continues to have subcutaneous emphysema in the neck region especially in the left side. Hence went ahead and placed a small tiny Angiocath, 14-gauge Angiocath to relieve some of the subcutaneous emphysema in the supraclavicular fat pad area WBC count is 16.4 hemoglobin is 12 sodium remains high at 145. Bicarb remains at [address] the patient back on bicarb mostly because of his hyperkalemia and wanted to keep his acidosis under control. Although it is mostly a respiratory type of acidosis alkaline phosphatase is 214, AST is 87. LDH is 2310. C-reactive protein is 4.1, Patient was reevaluated today on 06/26/2020, remains in the ICU, intubated and mechanically ventilated. Agent is on assist control rate of 34 tidal volume is 400 FiO2 is 60% and I cut it down to 55% PEEP was 20 and I cut it down to 18. ABG this morning showed a pO2 of 66 pCO2 of 88 pH of 7.37. Patient remains on Nepro . Patient has bilateral chest tubes, the left-sided chest tube is not showing any leak, however the right-sided chest tube has ongoing intermittent leak. Patient remains on propofol at 75 fentanyl S3 clevidipine 3 mg/h, and Nimbex at 30 mcg/kg/m. Patient is not requiring any pressors. Continues to have some subcu emphysema, but significantly improved compared to the last few days. Chest x-ray is showing minimal improvement. Continues to have some subcu emphysema. And pneumomediastinum. He got his 17 hemoglobin 11.6. Sodium is 146 potassium 5.3, renal profile is normal with BUN of 48 creatinine 0.64. LDH is coming down to 2490, and C-reactive protein is 6. overall I believe there is some improved but the patient remains quite ill, and condition remains very critical. Prognosis remains guarded. Progress note dated 06/27/2020. The patient was admitted to the hospital on June 13. His diagnosis was that of coronavirus infection and pneumonia. The patient was intubated on June 20. He remains on the ventilator, on the volume assist control mode, rate 34, tidal volume 400, FiO2 55%, PEEP 18. Arterial blood gases show pO2 62, PaCO2 87, and a pH is 7.36. The patient remains on Cleveprex at 3 mg an hour, Nimbex at 3 mcg/kg/m, fentanyl at 3 mcg/kg/h, propofol at 75 mcg/kg/m, and tube feedings with Nepro at 28 mL an hour, which is goal. The patient will benefit from a tracheostomy and PEG tube placement. In addition, a new art line will be placed. The patient does have bilateral chest tubes secondary to bilateral pneumothoraces. White count 13.5, hemoglobin 11.9, hematocrit 38.3, and platelet count 148,000. D-dimer is 4.69. Blood gases have been noted. Sodium 150, potassium 5.2, chlorides 101, CO2 52, BUN 52, creatinine 0.76. The patient's sodium bicarbonate IV/drip was discontinued. LDH is 2347 C-reactive protein 8.8. Progress note dated 06/28/2020. This patient was admitted to the hospital on June 13. His initial diagnosis was pneumonia secondary to coronavirus infection, with hypoxemia. The patient was intubated on June 20. Remains on the ventilator. He is seen today again in room 253. Current vent settings included a volume assist control mode rate 34, tidal volume 400, FiO2 55%, and PEEP of 18. Lungs gases show a PaO2 of 62, pCO2 80, and pH is 7.39. The patient is currently on Nimbex at 4 mcg/kg/m, fentanyl at 3 mcg/kg/h, propofol at 50 mcg/kg/m, and tube feedings with Nepro at 28 mL an hour, which is goal. The patient is not receiving any IV fluids. The patient does have bilateral chest tubes. We did ask surgery to consider doing a tracheostomy and PEG tube placement. We going to give the patient D5W at 100 mL an hour, for a sodium of 151. White count 17, hemoglobin 10.8, hematocrit 33.8, platelet count 144,000. D-dimer 3.04. Sodium 151, potassium 4.5, chlorides 105, CO2 46, BUN 66, creatinine 1.31. Sputum from June 21, showed evidence of Moraxella catarrhalis, and oxacillin sensitive staph aureus. Objective - Vital Signs Vital signs: Vital Signs Temp 100.9 F H 06/28/20 04:00 Pulse 92 06/28/20 07:00 Resp 35 H 06/28/20 07:00 BP 113/64 06/28/20 04:00 Pulse Ox 88 L 06/28/20 07:00 Intake & Output 06/27/20 06/28/20 06/28/20 18:59 06:59 18:59 Intake Total 1029.147 6857.060 148.95 Output Total 1885 1080 75 Balance -604.206 198.060 73.95 Weight 74.5 kg 80.5 kg Intake: IV 236 146 13 0.9 KVO 110 10 Cefepime 2 gm In Sodium 200 Chloride 0.9% 100 ml @ 25 mls/hr IVPB Q8HR [facility] Rx# :[id number] Clevidipine Butyrate 25 3 mg In Empty Bag 1 bag @ 1 MG/HR 2 mls/hr IV .Q24H [facility] Rx#:[id number] pressure bag 33 36 3 Intake, IV Titration 713.794 676.060 107.95 Amount ACETAMINOPHEN IV (For NPO 100 ) 1,000 mg In Empty Bag 1 bag @ 400 mls/hr IVPB ONCE ONE Rx#:[id number] Cefepime 2 gm In Sodium 100 Chloride 0.9% 100 ml @ 25 mls/hr IVPB Q8HR [facility] Rx# :[id number] Cisatracurium 200 mg In 213.170 107.95 Sodium Chloride 0.9% 180 ml @ 1 MCG/KG/MIN 3.81 mls/hr IV .Q24H [facility] Rx#: [id number] Clevidipine Butyrate 25 50.5 mg In Empty Bag 1 bag @ 1 MG/HR 2 mls/hr IV .Q24H [facility] Rx#:[id number] fentaNYL (PF). 1,000 mcg 193.040 262.890 In Sodium Chloride 0.9% 80 ml @ Per Protocol IV . Q0M [facility] Rx#:[id number] propofoL 1,000 mg In 270.254 200 Empty Bag 1 bag @ Titrate IV .Q0M [facility] Rx#: [id number] Tube Feeding 331 336 28 Other 120 Output: Chest Tube Drainage 200 170 Chest Tube Left 20 Chest Tube Right 200 150 Urine 1685 910 75 Other: Voiding Method Indwelling Catheter Indwelling Catheter ABP, PAP, CO, CI - Last Documented Arterial Blood Pressure 121/67 - Exam Currently, the patient is sedated and paralyzed. There is an orally placed endotracheal tube and NG tube. Saturations are in the low 90s. HEENT examination is grossly unremarkable. Neck supple. Full range of motion. No adenopathy thyromegaly or neck vein distention. Some subcutaneous emphysema noted in the neck area. Cardiovascular examination reveals regular rhythm rate. S1-S2 normal. No S3 or S4. No discernible murmur noted. Heart rate 92 bpm. Lungs reveal coarse bilateral rhonchi. Bilateral crackles are also noted. There is also subcutaneous emphysema noted in the left chest area. Bilateral chest tubes noted. There is a significant leak from the right chest tube. Abdomen soft bowel sounds are heard. No masses or tenderness. Extremities are intact. No cyanosis clubbing or edema. Skin is without rash or lesion. Neurologic examination could not be assessed as the patient's currently sedated and paralyzed. - Labs CBC & Chem 7: 06/28/20 04:10 06/28/20 04:10 Labs: Abnormal Lab Results - Last 24 Hours (Table) 06/27/20 06/27/20 06/27/20 Range/Units 12:05 18:01 23:39 WBC (3.8-10.6) k/uL RBC (4.30-5.90) m/uL Hgb (13.0-17.5) gm/dL Hct (39.0-53.0) % Plt Count (150-450) k/uL Neutrophils # (1.3-7.7) k/uL D-Dimer (<0.60) mg/L FEU ABG pCO2 (35-45) mmHg ABG pO2 (83-108) mmHg ABG HCO3 (21-25) mmol/L ABG Total CO2 (19-24) mmol/L ABG O2 Saturation (94-97) % Sodium (137-145) mmol/L Carbon Dioxide (22-30) mmol/L BUN (9-20) mg/dL Creatinine (0.66-1.25) mg/dL Glucose (74-99) mg/dL POC Glucose (mg/dL) 160 H 155 H 189 H (75-99) mg/dL Total Protein (6.3-8.2) g/dL Albumin (3.5-5.0) g/dL Urine Protein (Negative) Urine Blood (Negative) Urine RBC (0-5) /hpf Urine WBC (0-5) /hpf Ur Squamous Epith Cells (0-4) /hpf Amorphous Sediment (None) /hpf Urine Bacteria (None) /hpf Urine Mucus (None) /hpf 06/28/20 06/28/20 06/28/20 Range/Units 00:00 04:10 04:10 WBC 17.0 H (3.8-10.6) k/uL RBC 3.50 L (4.30-5.90) m/uL Hgb 10.8 L (13.0-17.5) gm/dL Hct 33.8 L (39.0-53.0) % Plt Count 144 L (150-450) k/uL Neutrophils # 15.1 H (1.3-7.7) k/uL D-Dimer (<0.60) mg/L FEU ABG pCO2 (35-45) mmHg ABG pO2 (83-108) mmHg ABG HCO3 (21-25) mmol/L ABG Total CO2 (19-24) mmol/L ABG O2 Saturation (94-97) % Sodium 151 H (137-145) mmol/L Carbon Dioxide 46 H* (22-30) mmol/L BUN 66 H (9-20) mg/dL Creatinine 1.31 H (0.66-1.25) mg/dL Glucose 143 H (74-99) mg/dL POC Glucose (mg/dL) (75-99) mg/dL Total Protein 5.1 L (6.3-8.2) g/dL Albumin 2.5 L (3.5-5.0) g/dL Urine Protein 2+ H (Negative) Urine Blood Moderate H (Negative) Urine RBC 14 H (0-5) /hpf Urine WBC 9 H (0-5) /hpf Ur Squamous Epith Cells 5 H (0-4) /hpf Amorphous Sediment Few H (None) /hpf Urine Bacteria Rare H (None) /hpf Urine Mucus Rare H (None) /hpf 06/28/20 06/28/20 06/28/20 Range/Units 04:10 06:06 06:09 WBC (3.8-10.6) k/uL RBC (4.30-5.90) m/uL Hgb (13.0-17.5) gm/dL Hct (39.0-53.0) % Plt Count (150-450) k/uL Neutrophils # (1.3-7.7) k/uL D-Dimer 3.04 H (<0.60) mg/L FEU ABG pCO2 79 H* (35-45) mmHg ABG pO2 62 L (83-108) mmHg ABG HCO3 48 H* (21-25) mmol/L ABG Total CO2 50 H (19-24) mmol/L ABG O2 Saturation 91.4 L (94-97) % Sodium (137-145) mmol/L Carbon Dioxide (22-30) mmol/L BUN (9-20) mg/dL Creatinine (0.66-1.25) mg/dL Glucose (74-99) mg/dL POC Glucose (mg/dL) 146 H (75-99) mg/dL Total Protein (6.3-8.2) g/dL Albumin (3.5-5.0) g/dL Urine Protein (Negative) Urine Blood (Negative) Urine RBC (0-5) /hpf Urine WBC (0-5) /hpf Ur Squamous Epith Cells (0-4) /hpf Amorphous Sediment (None) /hpf Urine Bacteria (None) /hpf Urine Mucus (None) /hpf Microbiology - Last 24 Hours (Table) 06/28/20 00:40 Sputum Culture - Preliminary Sputum 06/27/20 18:32 Urine Culture - Preliminary Urine,Catheterized Assessment and Plan Assessment: Acute hypoxemic respiratory failure secondary to COVID 19 pneumonia/pneumonitis. Acute barotrauma from mechanical ventilation, and relatively high PEEP levels, requiring bilateral chest tubes. Oxacillin sensitive staph aureus and Moraxella catarrhalis tracheobronchitis/bronchopneumonia. Hypernatremia. Elevated inflammatory markers. Hypotension, resolved. Hypertension, currently on Cleveprex. Thrombocytopenia, secondary to sepsis. Plan: Plan dated 06/27/2020. The bicarbonate drip will be discontinued given the fact that the patient's sodium is quite high. No ventilator changes today. The patient will need a tracheostomy and PEG tube placement. Surgery will be consulted. In addition, a new arterial line will be placed today. Additional recommendations and suggestions are forthcoming. Prognosis is very guarded. We'll continue to follow make recommendations where appropriate. Plan dated 06/28/2020. The nurse did speak to the family about tracheostomy and PEG tube placement. Apparently they wanted to wait 1 additional day. Surgery was consulted. Yesterday, we replaced a arterial line that had gone bad. Overall prognosis remains guarded. We'll continue to follow. Labs, x-rays, medications are all reviewed. The patient remains on propofol, fentanyl, and Nimbex. He is getting nutrition with Nepro at goal. We will continue to follow make recommendations where needed. Also, because of the patient's hypernatremia, the patient be given D5W at 100 mL an hour. Time with Patient: Greater than 30
[2020-06-28] MEDS: VANCOMYCIN 1,500 MG in SODIUM CHLORIDE 0.9% 250 ML IVPB SCH (11:11)
[2020-06-28 11:32] LABS: Glucose,Whole Blood 196 mg/dL (75-99)
--- NOTE | 2020-06-28 12:37 | P.PN ---
Subjective This is a 55-year-old male patient of Dr. Maxwell Alexander with significant past medical history. Patient states he started having symptoms on June 01 and was diagnosed with COVID-19 on June 08. Patient symptoms or body aches and fatigue as well as cough with white sputum production, increasing shortness of breath and measured pulse ox at home which worsened. He complains of headache chills and nausea. Patient presented to [facility] emergency center for evaluation. Patient was afebrile, heart rate 101, blood pressure 114/75, pulse ox 86% on room air. WBC 6.4, hemoglobin 16.2, platelet count 153. D-dimer 0.84. AST 106, ALT 44, alkaline phosphatase 57, LDH 2547. CRP 150. Sodium 129, potassium 4.6, chloride 97, CO2 23, BUN 12 and creatinine 0.84. Blood sugar 114. Chest x-ray reveals extensive pulmonary infiltrates related to pneumonia and ARDS. CTA of the chest reveals no pulmonary embolism. Patchy areas of nodular consolidations in the bilateral lower lobes with groundglass consolidation of the peripheral of the bilateral upper lobes consistent with multifocal infection compatible with Covid pneumonia. No pleural effusions or pneumothorax. Patient has been seen by pulmonary medicine is not a candidate for Remdesivir. Convalescent plasma has been ordered as well as Tocilizumab 1 dose. Patient is currently pulse ox 95% on 15 L nonrebreather. 06/15: Repeat chest x-ray reveals worsening infiltrates. Patient is currently on nonrebreather and nasal cannula with pulse ox of 89%. Patient states that he is not sleeping because of coughing. He continues to have cough, shortness of breath. Noted to be tachypneic. Patient states he is eating okay. Melatonin, Flonase and Tessalon Perles added. Patient has been afebrile, heart rate 87, respiratory rate 32, blood pressure 112/70. Repeat blood work reveals WBC 11.4, hemoglobin 15.4, platelet count 208. D-dimer 0.95. Sodium 136 other elec trolytes and renal function normal. Blood sugar 118. AST 96, ALT 67, alkaline phosphatase 70. LDH 2884. C-reactive protein 59.4. 06/16: Patient's pulse ox is 90-92% on high flow nasal cannula at 13 L along with 100% nonrebreather. Patient was seen by Dr. Kern plan is to try and wean off 100% oxygen. Patient states that his breathing is stable today. He continues to have shortness of breath with minimal activity and cough. Patient started on mycelex noemi for thrush. He has been afebrile, heart rate 80, blood pressure 114/69. Repeat chest x-ray reveals improving bilateral lung inf iltrates. Patient is continued on dexamethasone, Lovenox and vitamin supplements. 06/17: Yesterday afternoon, received call the patient had subcutaneous emphysema that was new and stat chest x-ray was ordered. This revealed interval development of subcutaneous emphysema within the bilateral neck. Some pneumo mediastinum may be present as the source. Pneumothorax is identified. This was reviewed by Dr. Kern at the time. Last evening at 2200, A-Team was called for puffiness of the neck and shoulder skin. Repeat chest x-ray revealed prominent interval increase in subcutaneous emphysema pattern. Patient was transferred to the intensive care unit. Patient has been seen in the intensive care unit today. He remains on 15 L high flow nasal cannula in addition to 100% nonrebreather facemask. D-dimer is 17.6, LDH 533. Patient remains on Decadron, Lovenox and supplements. Promethazine was added for cough suppression. Subcutaneous emphysema is stable. 06/18 patient evaluated bedside has worsening subcutaneous emphysema. Does appear anxious on examination. He is on Xanax to 0.25 mg twice a day with no improvement in patient's and slightly. We'll repeat chest x-ray does suggest tiny pneumothorax in addition to subcutaneous emphysema. Patient is currently maintaining oxygen saturation on interval 60 L with FiO2 of 90% with a nonrebreather 100%. Minimum exertion is causing desaturation. Patient appears to have worsening inflammation markers including worsening LDH and liver enzymes. Pulmonary care for management of the Covid. Continues to keep patient on dexamethasone, convalescent plasma. Patient is not a candidate for remdesivir. We will start patient on Lexapro 10 mg daily at bedtime to help with anxiety. IV fluids switch to D5NS as patient is not eating being on mask and is hungry. 06/19 patient evaluated bedside has worsening subcutaneous emphysema, facial swelling and pneumomediastinum. Patient is alert and keeping saturation 90-92% on BiPAP. He appears anxious and is breathing at 26 respiratory rate per minute. Blood pressure 1:30/74 heart rate of 113.chest x-rays consistent with bilateral subcutaneous emphysema and pneumomediastinum any apical pneumothorax dizzy and chest tube at this point. On evaluation patient's labs patient's leukocytosis and 19 sodium stable at 1:30, creatinine 0.67 and ferritin is 3144 elevated liver enzymes early at 7846 increased from prior low albumin. patient continues to have increased in size the despite initiation of Remeron will increase Remeron to 30 mg at bedtime Xanax increased to 0.5 twice a day from 0.25. Ativan can be given if patient is unable to tolerate oral medication. Plan to start patient on TPN tomorrow. Low sodium could be a results of D5W 06/20: Repeat blood work reveals WBC 29.6, hemoglobin 17, platelet count 124. D- dimer greater than 35. Sodium 132, potassium 5.4, chloride 95, CO2 31, BUN 28 creatinine 0.75. Blood sugar 162. AST 131, ALT 92, alkaline phosphatase 310. LDH 9901. CK 501. C-reactive protein 3.7. Patient became more hypoxic during the night with pulse ox down to the low 70s with mental status changes. Patient was intubated and placed on mechanical ventilation. Tidal volume 400, FiO2 of 75% and PEEP of 18. He is on propofol, Nimbex, levo fed was started and he is status post 2 L of IV fluid. He has on a fentanyl drip. Patient has extensive subcutaneous emphysema. Remeron and clotrimazole discontinued 06/21: Patient remains intubated and on mechanical ventilation. Tidal volume 400, FiO2 decreased from 85-80% this morning, PEEP 16. Patient had bilateral chest tubes placed for pneumothorax bilaterally. This was done last evening. Patient is currently on Nimbex, fentanyl, levo fed. He is on tube feedings at goal. Temperature max 100.2, heart rate 107, respiratory rate 33, blood pressure 118/62, pulse ox 90% with goal to keep above 85%. Repeat blood work reveals WBC 15.9, hemoglobin 14.6, platelet count 96. Sodium 137, potassium 5.1, chloride 100, CO2 39, BUN 26 and creatinine 0.69. Phosphorus 7.3. Magnesium 3.0. Total bilirubin 0.7, AST 59, ALT 61, alkaline phosphatase 190. D-dimer 14.6. LDH 3891. CK 902. C-reactive protein 4.1. Repeat chest x-ray reveals persistent severe bilateral subcutaneous emphysema limiting assessment. Underlying groundglass changes persist. Bilateral chest tubes. Right apical pn eumothorax smaller 6 mm versus 2 cm previously. Left apical pneumothorax no longer seen. Better demonstrated pneumomediastinum though suspected to have decreased compared to prior exam. Patient does have less subcutaneous emphysema. 06/22: he remains intubated and on mechanical ventilation with tidal volume 400, FiO2 was 100% this morning and decrease to 70, PEEP is 20. Patient is on propofol and fentanyl as well as Nimbex and bicarb drip. He is not on norepinephrine. Patient is on tube feedings at goal. He remains with bilateral chest tubes in place, no air leak. He has been afebrile, heart rate 108, respiratory rate 34, a pressure 108/61, pulse ox is 90%. Repeat blood work reveals WBC 20, hemoglobin 13.7. D-dimer 10.74. CO2 42, BUN 31 creatinine 0.63. Blood sugars running between 130s to 177. Repeat chest x-ray reveals stable findings. patient remains intubated with a tidal volume of 400 FiO2 of 65% PEEP 20. Patient continues to remain sedated and paralyzed on propofol, fentanyl Precedex and Pneumovax. Continues to have chest tubes with slight air leaks noted. Chest x-ray continues to remain the same with bilateral patchy infiltrate and subcutaneous emphysema. Vitals this morning suggests tachycardia 120 respiratory rate 34 saturating 90% on 65% FiO2 blood pressure 128/71 labs suggestive leukocytosis of 17.6 hemoglobin 12.9 ABG drawn at this morning mccabe ggests a pH of 7.3 pCO2 86 pO2 77 bicarb 50. Patient's LDH is 12,748. CRP 7. . 06/24 patient remains intubated and mechanically ventilated sedated and paralyzed on assist control with a tidal volume of 400 FiO2 60% PEEP on 20 respiratory rate of 14. ABG done this morning suggests a pO2 of 75 pCO2 83. 7.39. Patient continues to remain on propofol and Pneumovax and fentanyl. The bicarb drip discontinued. 10 chest x-ray shows bilateral subcutaneous emphysema with bilateral patchy infiltrates. Concern for small right apical pneumothorax measuring 1.2 cm versus 9 mm previously. Patient continues to have bilateral chest tubes, minimally leak noted in the right-sided chest tube. No air leak on the left-sided chest tube. Patient remains on enteral feeding. In assessment of patient's blood work slight improvement in CRP noted at 4.7H improved to 2733 liver enzymes continue to rise with AST of 90 ALT 105 alkaline phosphatase 2:30. Bicarb increased to 48. Bicarb drip discontinued. Potassium is noted to be high. One dose of Kayexalate ordered 06/25: Patient remains intubated and mechanically ventilated sedated on pressors on assist control and tidal volume of 400 FiO2 PEEP of 20. Respirations of 14. Patient continues to remain on propofol and Pneumovax and fentanyl. The bicarb drip has been discontinued. Today's chest x-ray shows bilateral subcutaneous emphysema bilateral patchy infiltrates they're similar to the prior exam. Patient continues to have bilateral chest tubes. A 14 Angiocath was inserted into his neck to help relieve subcutaneous emphysema. Patient remains on enternal feeding. WCC 60.4, hemoglobin 12.1, platelets 159, potassium 5.1, BUN 48, creatinine 0.63. ABG pH 7.38, pCO2 87, pO2 61, HCO3 51, ABG O2 sat 91. 06/26: Maintained intubated and mechanically ventilated sedated and paralyzed on assist control with FiO2 on 65% and a PEEP of 18. WBC 17, hemoglobin 11.6, potassium 5.3, BUN 48, creatinine 0.64 d-dimer 3.67,. Temperature 99.9. Patient continues to remain on propofol and Pneumovax and fentanyl. Chest x-ray findings similar to prior exam. Angiocath to the left subclavian to help with subcutaneous emphysema. Substance emphysema is improved compared to yesterday with less edema to face and neck. Patient remains on enternal feeding. Bilateral chest tubes in place and draining. 06/27: Patient remain intubated and sedated still required high FiO2 with higher PEEP to keep his pulse ox above 90 percentile. Patient subcutaneous emphysema slightly but better today there is no more swelling and eyelid this point. Patient still sedated. Patient will be going for trach and PEG tube tomorrow, patient probably will require longer term vent management. 06/28: Patient remains in the ICU, still intubated and sedated bilateral chest tubes in place with intermittent air leaks to the right chest tube. He continues on cefepime for positive cultures for MSSA and moraxella. Subcutaneous emphysema status post placement of 14-gauge Angiocath to left neck has improved. He will be going for tracheostomy and PEG tube placement today. Bicarbonate drip was discontinued due to hyponatremia and he was started on D5W. Objective - Vital Signs Vital signs: Vital Signs Temp 100.9 F H 06/28/20 04:00 Pulse 92 06/28/20 07:00 Resp 35 H 06/28/20 07:00 BP 113/64 06/28/20 04:00 Pulse Ox 88 L 06/28/20 07:00 Intake & Output 06/27/20 06/28/20 06/28/20 18:59 06:59 18:59 Intake Total 5806.038 1864.060 41 Output Total 1885 1080 75 Balance -604.206 98.060 -34 Weight 74.5 kg 80.5 kg Intake: IV 236 146 13 0.9 KVO 110 10 Cefepime 2 gm In Sodium 200 Chloride 0.9% 100 ml @ 25 mls/hr IVPB Q8HR [facility] Rx# :[id number] Clevidipine Butyrate 25 3 mg In Empty Bag 1 bag @ 1 MG/HR 2 mls/hr IV .Q24H [facility] Rx#:[id number] pressure bag 33 36 3 Intake, IV Titration 713.794 576.060 Amount ACETAMINOPHEN IV (For NPO 100 ) 1,000 mg In Empty Bag 1 bag @ 400 mls/hr IVPB ONCE ONE Rx#:[id number] Cefepime 2 gm In Sodium 100 Chloride 0.9% 100 ml @ 25 mls/hr IVPB Q8HR [facility] Rx# :[id number] Cisatracurium 200 mg In 213.170 Sodium Chloride 0.9% 180 ml @ 1 MCG/KG/MIN 3.81 mls/hr IV .Q24H [facility] Rx#: [id number] Clevidipine Butyrate 25 50.5 mg In Empty Bag 1 bag @ 1 MG/HR 2 mls/hr IV .Q24H [facility] Rx#:[id number] fentaNYL (PF). 1,000 mcg 193.040 262.890 In Sodium Chloride 0.9% 80 ml @ Per Protocol IV . Q0M [facility] Rx#:[id number] propofoL 1,000 mg In 270.254 100 Empty Bag 1 bag @ Titrate IV .Q0M [facility] Rx#: [id number] Tube Feeding 331 336 28 Other 120 Output: Chest Tube Drainage 200 170 Chest Tube Left 20 Chest Tube Right 200 150 Urine 1685 910 75 Other: Voiding Method Indwelling Catheter Indwelling Catheter ABP, PAP, CO, CI - Last Documented Arterial Blood Pressure 121/67 - Exam Gen: This is a 55-year-old male. He is resting in ICU bed appears to be comfortable. Facial swelling continues, slightly improved. HEENT: Head is atraumatic, normocephalic. NECK: Subcutaneous emphysema. chest : Chest tube noted with minimal air leak noted on the right chest tube no air leak noted on the left chest tube Cardiac: Regular rate S1-S2 no S3 or JVD. Abdomen slightly distended mild bruise positive bowel sounds. Extremities trace edema bilaterally. Neurologic exam patient is sedated currently on mechanical ventilation. - Labs CBC & Chem 7: 06/28/20 04:10 06/28/20 04:10 Labs: Abnormal Lab Results - Last 24 Hours (Table) 06/27/20 06/27/20 06/27/20 Range/Units 12:05 18:01 23:39 WBC (3.8-10.6) k/uL RBC (4.30-5.90) m/uL Hgb (13.0-17.5) gm/dL Hct (39.0-53.0) % Plt Count (150-450) k/uL Neutrophils # (1.3-7.7) k/uL D-Dimer (<0.60) mg/L FEU ABG pCO2 (35-45) mmHg ABG pO2 (83-108) mmHg ABG HCO3 (21-25) mmol/L ABG Total CO2 (19-24) mmol/L ABG O2 Saturation (94-97) % Sodium (137-145) mmol/L Carbon Dioxide (22-30) mmol/L BUN (9-20) mg/dL Creatinine (0.66-1.25) mg/dL Glucose (74-99) mg/dL POC Glucose (mg/dL) 160 H 155 H 189 H (75-99) mg/dL Total Protein (6.3-8.2) g/dL Albumin (3.5-5.0) g/dL Urine Protein (Negative) Urine Blood (Negative) Urine RBC (0-5) /hpf Urine WBC (0-5) /hpf Ur Squamous Epith Cells (0-4) /hpf Amorphous Sediment (None) /hpf Urine Bacteria (None) /hpf Urine Mucus (None) /hpf 06/28/20 06/28/20 06/28/20 Range/Units 00:00 04:10 04:10 WBC 17.0 H (3.8-10.6) k/uL RBC 3.50 L (4.30-5.90) m/uL Hgb 10.8 L (13.0-17.5) gm/dL Hct 33.8 L (39.0-53.0) % Plt Count 144 L (150-450) k/uL Neutrophils # 15.1 H (1.3-7.7) k/uL D-Dimer (<0.60) mg/L FEU ABG pCO2 (35-45) mmHg ABG pO2 (83-108) mmHg ABG HCO3 (21-25) mmol/L ABG Total CO2 (19-24) mmol/L ABG O2 Saturation (94-97) % Sodium 151 H (137-145) mmol/L Carbon Dioxide 46 H* (22-30) mmol/L BUN 66 H (9-20) mg/dL Creatinine 1.31 H (0.66-1.25) mg/dL Glucose 143 H (74-99) mg/dL POC Glucose (mg/dL) (75-99) mg/dL Total Protein 5.1 L (6.3-8.2) g/dL Albumin 2.5 L (3.5-5.0) g/dL Urine Protein 2+ H (Negative) Urine Blood Moderate H (Negative) Urine RBC 14 H (0-5) /hpf Urine WBC 9 H (0-5) /hpf Ur Squamous Epith Cells 5 H (0-4) /hpf Amorphous Sediment Few H (None) /hpf Urine Bacteria Rare H (None) /hpf Urine Mucus Rare H (None) /hpf 06/28/20 06/28/20 Range/Units 04:10 06:06 WBC (3.8-10.6) k/uL RBC (4.30-5.90) m/uL Hgb (13.0-17.5) gm/dL Hct (39.0-53.0) % Plt Count (150-450) k/uL Neutrophils # (1.3-7.7) k/uL D-Dimer 3.04 H (<0.60) mg/L FEU ABG pCO2 79 H* (35-45) mmHg ABG pO2 62 L (83-108) mmHg ABG HCO3 48 H* (21-25) mmol/L ABG Total CO2 50 H (19-24) mmol/L ABG O2 Saturation 91.4 L (94-97) % Sodium (137-145) mmol/L Carbon Dioxide (22-30) mmol/L BUN (9-20) mg/dL Creatinine (0.66-1.25) mg/dL Glucose (74-99) mg/dL POC Glucose (mg/dL) (75-99) mg/dL Total Protein (6.3-8.2) g/dL Albumin (3.5-5.0) g/dL Urine Protein (Negative) Urine Blood (Negative) Urine RBC (0-5) /hpf Urine WBC (0-5) /hpf Ur Squamous Epith Cells (0-4) /hpf Amorphous Sediment (None) /hpf Urine Bacteria (None) /hpf Urine Mucus (None) /hpf Microbiology - Last 24 Hours (Table) 06/27/20 18:32 Urine Culture - Preliminary Urine,Catheterized Assessment and Plan Plan: 1. Acute hypoxic respiratory failure secondary to Covid 19 pneumonia requiring intubation and mechanical ventilation on 06/19. Patient has been seen by pulmonary medicine status post Convalescent plasma and Tocilizumab 1 dose. Continue dexamethasone 6 mg IV every 24 hours, Lovenox 40 mg subcu twice daily, vitamins, cefepime 2 g IV piggyback every 8 hours. Patient is off vasopressors. Continue propofol, fentanyl, Precedex, Nimbex. Patient still have subcutaneous emphysema with bilateral pneumothorax with 2 chest tube in. Patient be going for trach and PEG tube tomorrow. 2. Elevated inflammatory markers secondary to Covid 19. Continue to monitor. Downtrending, still mildly elevated and patient still sick and prognosis very guarded. 3. Mild hyponatremia. corrected, more hypernatremia now, bicarbonate drip was discontinued 4. Elevated d-dimer. Acute pulmonary embolism has been ruled out by CTA. No sign of PE patient still on anticoagulation 5. Lymphocytopenia secondary to Covid 19. 6. Bilateral pneumothorax: Had chest tube bilaterally still under waterseal drain. 7. Subcutaneous emphysema and pneumomediastinum, stable WITH small PNEUMOTHORAX Status post bilateral chest tube insertion on continuous wall suction with mild air leak on the right chest tube. Monitor for resolution of subcutaneous emphysema 8. Thrombocytopenia secondary to Covid. Continue to monitor. 9. Metabolic acidosis. Currently have metabolic alkalosis bicarb drip held 10. Hyperglycemia: Remain on Accu-Chek with sliding scales coverage. 11. DVT prophylaxis. Lovenox. 12 GI prophylaxis. Protonix daily. The above impression and plan of care have been discussed and directed by signing physician. Judy Rios nurse practitioner acting as scribe for signing physician.
--- NOTE | 2020-06-28 13:06 | P.PN ---
Subjective Progress Note Date: 06/28/20 CHIEF COMPLAINT: COVID-19 pneumonia HISTORY OF PRESENT ILLNESS: Patient is in the ICU intubated and sedated. Surgical service on consult for tracheostomy and PEG tube placement. Patient has bilateral chest tubes. Right chest tube has leak and is followed by critical care service and cardiothoracic surgery. He has been having fevers T- max of 102.2 WBC 17 sodium 151 creatinine 1.31 PHYSICAL EXAM: VITAL SIGNS: Reviewed. GENERAL: Well-developed in no acute distress. HEENT: No sclera icterus. Extraocular movements grossly intact. Moist buccal mucosa. Head is atraumatic, normocephalic. ABDOMEN: Soft. Nondistended. Nontender. NEUROLOGIC: Intubated and sedated ASSESSMENT: 1. Acute hypoxic respiratory failure secondary to COVID-19 pneumonia and required prolonged mechanical ventilation 2. Severe protein calorie malnutrition PLAN: -Patient is scheduled for tracheostomy and PEG tube placement tomorrow, 06/29/[address] Apodaca -Hold tube feedings after midnight Physician Sales Operations Coordinator note has been reviewed by physician. Signing provider agrees with the documented findings, assessment, and plan of care. Objective - Vital Signs Vital signs: Vital Signs Temp 99.1 F 06/28/20 09:00 Pulse 82 06/28/20 11:00 Resp 34 H 06/28/20 11:00 BP 113/64 06/28/20 04:00 Pulse Ox 89 L 06/28/20 11:00 Intake & Output 06/27/20 06/28/20 06/28/20 18:59 06:59 18:59 Intake Total 8415.183 9713.060 1005.905 Output Total 1885 1080 600 Balance -604.206 198.060 405.905 Weight 74.5 kg 80.5 kg Intake: IV 236 146 131 0.9 KVO 110 10 Cefepime 2 gm In Sodium 200 100 Chloride 0.9% 100 ml @ 25 mls/hr IVPB Q8HR [facility] Rx# :[id number] Clevidipine Butyrate 25 3 mg In Empty Bag 1 bag @ 1 MG/HR 2 mls/hr IV .Q24H [facility] Rx#:[id number] pressure bag 33 36 21 Intake, IV Titration 713.794 676.060 650.905 Amount ACETAMINOPHEN IV (For NPO 100 ) 1,000 mg In Empty Bag 1 bag @ 400 mls/hr IVPB ONCE ONE Rx#:[id number] Cefepime 2 gm In Sodium 100 Chloride 0.9% 100 ml @ 25 mls/hr IVPB Q8HR [facility] Rx# :[id number] Cisatracurium 200 mg In 213.170 107.95 Sodium Chloride 0.9% 180 ml @ 1 MCG/KG/MIN 3.81 mls/hr IV .Q24H [facility] Rx#: [id number] Clevidipine Butyrate 25 50.5 mg In Empty Bag 1 bag @ 1 MG/HR 2 mls/hr IV .Q24H [facility] Rx#:[id number] Dextrose 5% in Water 1, 100 000 ml @ 100 mls/hr IV . Q10H [facility] Rx#:[id number] Vancomycin 1,500 mg In 250 Sodium Chloride 0.9% 250 ml @ 125 mls/hr IVPB Q16H [facility] Rx#:[id number] fentaNYL (PF). 1,000 mcg 193.040 262.890 94.615 In Sodium Chloride 0.9% 80 ml @ Per Protocol IV . Q0M [facility] Rx#:[id number] propofoL 1,000 mg In 270.254 200 98.34 Empty Bag 1 bag @ Titrate IV .Q0M [facility] Rx#: [id number] Tube Feeding 331 336 224 Other 120 Output: Chest Tube Drainage 200 170 Chest Tube Left 20 Chest Tube Right 200 150 Urine 1685 910 600 Other: Voiding Method Indwelling Catheter Indwelling Catheter Indwelling Catheter ABP, PAP, CO, CI - Last Documented Arterial Blood Pressure 121/64 - Labs CBC & Chem 7: 06/28/20 04:10 06/28/20 04:10 Labs: Abnormal Lab Results - Last 24 Hours (Table) 06/27/20 06/27/20 06/28/20 Range/Units 18:01 23:39 00:00 WBC (3.8-10.6) k/uL RBC (4.30-5.90) m/uL Hgb (13.0-17.5) gm/dL Hct (39.0-53.0) % Plt Count (150-450) k/uL Neutrophils # (1.3-7.7) k/uL D-Dimer (<0.60) mg/L FEU ABG pCO2 (35-45) mmHg ABG pO2 (83-108) mmHg ABG HCO3 (21-25) mmol/L ABG Total CO2 (19-24) mmol/L ABG O2 Saturation (94-97) % Sodium (137-145) mmol/L Carbon Dioxide (22-30) mmol/L BUN (9-20) mg/dL Creatinine (0.66-1.25) mg/dL Glucose (74-99) mg/dL POC Glucose (mg/dL) 155 H 189 H (75-99) mg/dL Total Protein (6.3-8.2) g/dL Albumin (3.5-5.0) g/dL Urine Protein 2+ H (Negative) Urine Blood Moderate H (Negative) Urine RBC 14 H (0-5) /hpf Urine WBC 9 H (0-5) /hpf Ur Squamous Epith Cells 5 H (0-4) /hpf Amorphous Sediment Few H (None) /hpf Urine Bacteria Rare H (None) /hpf Urine Mucus Rare H (None) /hpf 06/28/20 06/28/20 06/28/20 Range/Units 04:10 04:10 04:10 WBC 17.0 H (3.8-10.6) k/uL RBC 3.50 L (4.30-5.90) m/uL Hgb 10.8 L (13.0-17.5) gm/dL Hct 33.8 L (39.0-53.0) % Plt Count 144 L (150-450) k/uL Neutrophils # 15.1 H (1.3-7.7) k/uL D-Dimer 3.04 H (<0.60) mg/L FEU ABG pCO2 (35-45) mmHg ABG pO2 (83-108) mmHg ABG HCO3 (21-25) mmol/L ABG Total CO2 (19-24) mmol/L ABG O2 Saturation (94-97) % Sodium 151 H (137-145) mmol/L Carbon Dioxide 46 H* (22-30) mmol/L BUN 66 H (9-20) mg/dL Creatinine 1.31 H (0.66-1.25) mg/dL Glucose 143 H (74-99) mg/dL POC Glucose (mg/dL) (75-99) mg/dL Total Protein 5.1 L (6.3-8.2) g/dL Albumin 2.5 L (3.5-5.0) g/dL Urine Protein (Negative) Urine Blood (Negative) Urine RBC (0-5) /hpf Urine WBC (0-5) /hpf Ur Squamous Epith Cells (0-4) /hpf Amorphous Sediment (None) /hpf Urine Bacteria (None) /hpf Urine Mucus (None) /hpf 06/28/20 06/28/20 06/28/20 Range/Units 06:06 06:09 11:30 WBC (3.8-10.6) k/uL RBC (4.30-5.90) m/uL Hgb (13.0-17.5) gm/dL Hct (39.0-53.0) % Plt Count (150-450) k/uL Neutrophils # (1.3-7.7) k/uL D-Dimer (<0.60) mg/L FEU ABG pCO2 79 H* (35-45) mmHg ABG pO2 62 L (83-108) mmHg ABG HCO3 48 H* (21-25) mmol/L ABG Total CO2 50 H (19-24) mmol/L ABG O2 Saturation 91.4 L (94-97) % Sodium (137-145) mmol/L Carbon Dioxide (22-30) mmol/L BUN (9-20) mg/dL Creatinine (0.66-1.25) mg/dL Glucose (74-99) mg/dL POC Glucose (mg/dL) 146 H 196 H (75-99) mg/dL Total Protein (6.3-8.2) g/dL Albumin (3.5-5.0) g/dL Urine Protein (Negative) Urine Blood (Negative) Urine RBC (0-5) /hpf Urine WBC (0-5) /hpf Ur Squamous Epith Cells (0-4) /hpf Amorphous Sediment (None) /hpf Urine Bacteria (None) /hpf Urine Mucus (None) /hpf Microbiology - Last 24 Hours (Table) 06/28/20 00:40 Sputum Culture - Preliminary Sputum 06/27/20 18:32 Urine Culture - Preliminary Urine,Catheterized
[2020-06-28 17:48] LABS: Glucose,Whole Blood 181 mg/dL (75-99)
--- NOTE | 2020-06-28 17:49 | XR ---
EXAMINATION TYPE: XR chest 1V portable DATE OF EXAM: 06/28/2020 COMPARISON: Today HISTORY: Hypoxemia. Respiratory failure. TECHNIQUE: Single view FINDINGS: Endotracheal tube is approximately 7 cm from the westley. There is approximate 40% right-serena ed pneumothorax. There is extensive infiltrate and atelectasis in the right lung. There are bilateral chest tubes that appear to be in good position. There is right subclavian catheter with tip in the s uperior vena cava. There is nasogastric tube in the stomach. There is some interstitial infiltrate in the left lung. No definite pneumothorax on the left side. There is soft tissue air on the chest wall bilaterally. There is some lucency around the aortic arch. IMPRESSION: There is increase in the right side pneumothorax compared to exam this morning. Pleural s pace measures 3 cm and previous exam measures 1.8 cm. There is evidence for a pneumomediastinum proba hilario not changed. Pulmonary infiltrates and atelectasis consistent with RDS appears slightly worse on the right side.
[2020-06-28] MEDS ORDERED: CISATRACURIUM 2 MG/ML 5 ML VIAL IV ONE ×3 (18:35→18:52)
--- NOTE | 2020-06-28 18:45 | PN ---
PROGRESS NOTE DATE OF SERVICE: 06/28/2020 REASON FOR FOLLOWUP: Pneumonia. INTERVAL HISTORY: The patient's overall fever pattern has improved. Last temperature was 100.9 around 4 in the morning. Since then the patient has been afebrile. The patient is hemodynamically stable, not on any pressor support. No significant purulent secretions through the ET, diarrhea or any other changes reported by nursing staff. PHYSICAL EXAMINATION: Blood pressure 120/69 with a pulse of 112, temperature 99.5. He is 91% on 55% FiO2. General description is a middle-aged male lying in bed in no distress. RESPIRATORY SYSTEM: Unlabored breathing with decreased intensity of breath sounds. No wheeze. HEART: S1, S2. Regular rate and rhythm. ABDOMEN: Soft. No tenderness. EXTREMITIES: No edema of the feet. LABS: Hemoglobin is 10.8, white count 17,000. BUN of 66, creatinine 1.31. Repeat cultures are currently pending. DIAGNOSTIC IMPRESSION AND PLAN: Patient with acute respiratory failure which is multifactorial in this patient who did have a component of pneumonia. Recent sputum was MSSA and Moraxella. With a new fever, sputum has been requested. Patient is covered with cefepime and vancomycin; to continue while waiting for the culture to finalize, and monitor his clinical course closely. MMODL / IJN: [id number] /
--- NOTE | 2020-06-28 18:49 | XR ---
EXAMINATION TYPE: XR chest 1V portable DATE OF EXAM: 06/28/2020 COMPARISON: Today HISTORY: Hypoxemia. Chest tube placement. TECHNIQUE: Single view FINDINGS: There are 2 right-sided chest tubes. These are of the upper lung field. There is left-sided chest tube over the left upper lobe. There is soft tissue air on the left and right chest wall. Ther e is apparent clearing of the right side pneumothorax compared to exam one hour ago. There is nasogas tric tube in the stomach. The endotracheal tube is 3.5 cm from the westley. There is diffuse pulmonary interstitial and airspace edema. IMPRESSION: Right-sided pneumothorax improved. Pulmonary edema unchanged and consistent with RDS.
[2020-06-28 19:03] LABS: ABG Base Excess 20.2 mmol/L; ABG Oxygen Saturation 99.3 % (94-97); ABG PH 7.38 (7.35-7.45); ABG PO2 175 mmHg (83-108); ABG TCO2 48 mmol/L (19-24); Allen Test Performed? Yes
--- NOTE | 2020-06-28 19:08 | XR ---
EXAMINATION TYPE: XR chest 1V portable DATE OF EXAM: 06/28/2020 COMPARISON: Today HISTORY: Chest tube placement Central line placement TECHNIQUE: Single view FINDINGS: There is now placement of a left jugular catheter with the tip in the superior vena cava. T here is right subclavian catheter with tip in the superior vena cava. There is 2 right-sided chest tu bes. There is single left side chest tube. There is nasogastric tube. No evidence of any significant pneumothorax. There is bilateral patchy pulmonary interstitial and airspace edema. IMPRESSION: Pulmonary infiltrates consistent with RDS without change. No pneumothorax.
[2020-06-28 19:29] LABS: ABG HCO3 45 mmol/L (21-25); ABG PCO2 77 mmHg (35-45)
--- NOTE | 2020-06-28 23:08 | XR ---
EXAMINATION TYPE: XR chest 1V portable DATE OF EXAM: 06/28/2020 COMPARISON: Today HISTORY: Hypoxemia TECHNIQUE: FINDINGS: There is right-sided chest tube that appears in good position over the right upper lobe. Th ere is single left side chest tube over the left upper lobe. There is endotracheal tube 4 cm from the westley. There is left jugular catheter with tip in the top of the right atrium. There is very small right apical pneumothorax. There is soft tissue air over the chest wall bilaterally. Trachea is midli ne. There is patchy bilateral interstitial and airspace extensive infiltrates. IMPRESSION: Extensive pulmonary infiltrates unchanged. Small right apical pneumothorax is less than 3 %. Pulmonary infiltrates consistent with RDS appear unchanged.
--- NOTE | 2020-06-28 23:18 | PCN ---
PROCEDURE NOTE PULMONARY/CRITICAL CARE PROCEDURE NOTE: PROCEDURE PERFORMED: Right-sided chest tube. PREOPERATIVE DIAGNOSIS: Right pneumothorax. POSTOP DIAGNOSIS: Right sided pneumothorax. PLANT ASSOCIATE: Dr. Henry. DESCRIPTION OF PROCEDURE: I used a 28-[place] chest tube. A small incision was made between the anterior and middle axillary line at the 5th intercostal space. I dissected down with a forceps to the area between the ribs. I was able to puncture into the pleural space. A 28-[place] tube was inserted. Significant air emanated from the chest cavity when I was able to get into the pleural space. The chest tube was sutured in place. There was no immediate complication. A chest tube was connected to a Pleur-evac. He was placed on 20 cm water suction. The dressing was applied. There was no immediate complication. A chest x-ray was ordered to check placement to make sure that the pneumothorax had improved. There was informed consent and universal timeout. PLANT ASSOCIATE: Dr. Henry. MMODL / IJN: [id number] /
--- NOTE | 2020-06-28 23:18 | PCN ---
PROCEDURE NOTE PROCEDURE NOTE: Left internal jugular triple-lumen catheter. PREOP DIAGNOSIS: Administration of fluids and pressors. POSTOP DIAGNOSIS: Administration of fluids and pressors. COUPLES THERAPIST: Dr. Henry. There was informed consent and universal timeout. TRIPLE LUMEN CATHETER PLACEMENT: Indication: Hemodynamic monitoring/Intravenous access. A time-out was completed verifying correct patient, procedure, site, positioning, and implant(s) or special equipment if applicable. The patient was placed in a dependent position appropriate for triple lumen catheter placement based on the vein to be cannulated. The patient's left neck was prepped and draped in sterile fashion. 1% Lidocaine was used to anesthetize the surrounding skin area. A triple lumen 9F Cordis catheter was introduced into the internal jugular vein using Seldinger technique. The catheter was threaded smoothly over the guide wire and appropriate blood return was obtained. Each lumen of the catheter was evacuated of air and flushed with sterile saline. The catheter was then sutured in place to the skin and a sterile dressing applied. Perfusion to the extremity distal to the point of catheter insertion was checked and found to be adequate. We used the left internal jugular site posterior approach. There was no immediate complication. There was good blood return from all 3 ports. The patient tolerated the procedure well. The tip of the catheter was seen in the right atrium. The catheter was sutured in place. Sterile dressing was applied by the nurse. There was no immediate complication. MMODL / IJN: [id number] /
[2020-06-29 00:04] LABS: Glucose,Whole Blood 168 mg/dL (75-99)
[2020-06-29] MEDS: fentaNYL (PF). 1,000 MCG in SODIUM CHLORIDE 0.9% 80 ML IV SCH ×6 (00:13→23:00)
[2020-06-29] MEDS: INSULIN ASPART (NovoLOG) 100 UNIT/ML VIAL SQ SCH ×4 (00:14→17:39)
[2020-06-29] MEDS: CISATRACURIUM 200 MG in SODIUM CHLORIDE 0.9% 180 ML IV SCH ×3 (02:00→17:37)
[2020-06-29] MEDS: VANCOMYCIN 1,500 MG in SODIUM CHLORIDE 0.9% 250 ML IVPB SCH ×2 (04:13→20:55)
[2020-06-29] MEDS: ARTIFICIAL TEARS-HYPROMELLOSE DROPS 15 ML BTL BOTH EYES SCH ×5 (04:13→20:57)
[2020-06-29] MEDS: DEXTROSE 5% IN WATER 1,000 ML IV SCH ×2 (04:14→16:35)
[2020-06-29 04:38] LABS: Basophils % (A) 0 %; Eosinophils # (A) 0.1 k/uL (0-0.7); Eosinophils % (A) 1 %; HCT 31.9 % (39.0-53.0); HGB 10.3 gm/dL (13.0-17.5); Hypochromasia Slight; Lymphocytes # (A) 0.7 k/uL (1.0-4.8); Lymphocytes % (A) 6 %; MCH 30.8 pg (25.0-35.0); MCHC 32.3 g/dL (31.0-37.0); MCV 95.6 fL (80.0-100.0); Mean Platelet Volume 10.8; Monocytes # (A) 0.2 k/uL (0-1.0); Monocytes % (A) 2 %; Neutrophils # (A) 11.5 k/uL (1.3-7.7); Neutrophils % (A) 91 %; Platelet Count 139 k/uL (150-450); RBC 3.34 m/uL (4.30-5.90); RDW 14.8 % (11.5-15.5); WBC 12.7 k/uL (3.8-10.6)
[2020-06-29 04:57] LABS: Albumin 2.4 g/dL (3.5-5.0); Calcium 8.5 mg/dL (8.4-10.2); Potassium 4.6 mmol/L (3.5-5.1); Total Bilirubin 0.7 mg/dL (0.2-1.3); Total Protein 5.1 g/dL (6.3-8.2)
[2020-06-29 04:58] LABS: ABG Base Excess 17.8 mmol/L; ABG Oxygen Saturation 92.5 % (94-97); ABG PH 7.36 (7.35-7.45); ABG PO2 67 mmHg (83-108); ABG TCO2 46 mmol/L (19-24)
[2020-06-29 05:11] LABS: ABG HCO3 43 mmol/L (21-25); ABG PCO2 76 mmHg (35-45)
[2020-06-29 06:09] LABS: Glucose,Whole Blood 127 mg/dL (75-99)
--- NOTE | 2020-06-29 07:33 | XR ---
EXAMINATION TYPE: XR chest 1V portable DATE OF EXAM: 06/29/2020 COMPARISON: 06/28/2020 HISTORY: SOB, Follow Up FINDINGS: Bilateral chest tubes are in place. Endotracheal tube, left IJ central venous line and NG tube are un changed in position. Tiny right apical pneumothorax of less than 10%. Persistent but improving subcut aneous emphysema and pneumomediastinum. Patchy air space infiltrates throughout both lung driver pers ist with improved aeration left lower lobe. No change in bibasilar opacities. Stable appearance of the cardio-mediastinal structures at this time. Pleural effusion unchanged. IMPRESSION: 1. Patchy air space infiltrates throughout both lung driver persist with improved aeration left lowe r lobe.Clinical correlation and follow up until resolution is recommended.
[2020-06-29] MEDS: LACTULOSE 20 GM/30 ML CUP PO SCH ×2 (08:37→20:55)
[2020-06-29] MEDS: ASCORBIC ACID 500 MG TAB PO SCH (08:37)
[2020-06-29] MEDS: CHOLECALCIFEROL 25 MCG (1000 IU) TABLET PO SCH (08:37)
[2020-06-29] MEDS: CEFEPIME 2 GM in SODIUM CHLORIDE 0.9% 100 ML IVPB SCH ×2 (08:37→16:35)
[2020-06-29] MEDS: CHLORHEXIDINE GLUCONATE 15 ML CUP MUCOUS MEM SCH ×2 (08:37→20:55)
[2020-06-29] MEDS: ZINC SULFATE 220 MG CAP PO SCH (08:37)
[2020-06-29] MEDS: DEXAMETHASONE SOD PHOSPHATE 10 MG/ML 1 ML VIAL IV SCH (08:44)
[2020-06-29] MEDS: PANTOPRAZOLE 40 MG/10 ML VIAL IVP SCH (08:44)
[2020-06-29] MEDS: ENOXAPARIN 40 MG/0.4 ML SYRINGE SQ SCH (10:00)
--- NOTE | 2020-06-29 10:23 | P.PN ---
Subjective Progress Note Date: 06/29/20 Principal diagnosis: COVID 19 pneumonia Patient was reevaluated today on 06/23/2020, remains intubated and mechanically ventilated. Remains in the ICU, sedated and paralyzed. He is on assist control rate of 34, tidal volume is 400 FiO2 is 65 and PEEP is 20. ABG showed a pO2 of 77 pCO2 of 86 pH of 7.37. Patient remains on propofol at 75, fentanyl S3, pleasant Pleurx at 8 mg per hour, Nimbex at 2. Plan to give the patient a trial of Nimbex holiday today if possible. Remains on Nepro 17/17. Chest x-ray is basically the same, continues to show bilateral patchy infiltrates and subcutaneous emphysema. Patient is hemodynamically stable, not requiring any pressors, however he is a bit tachycardic rate is 120. Both sided chest tubes are about the same, and no leaks noted. Basic metabolic profile is normal, bicarb is 45. Patient remains on bicarb drip. D-dimer is 4.66. WBC count is 17.6 hemoglobin is 12.9. LDH remains high at 2747, C-reactive protein is 7 and CPK is 178. Patient was reevaluated today on 06/24/20, remains in the ICU, intubated and mechanically ventilated, sedated and paralyzed. He is on assist control rate of 34 tidal volume is 400 FiO2 of 65% and PEEP remains at 20. Peak airway pressure is about 39 and plateau pressure is 35. ABG showed a pO2 of 75 pCO2 83 pH of 7.39. Hence I decreased the FiO2 down to 60% kept him on the same PEEP/20. Patient remains on propofol at 75 Nimbex at 2 fentanyl S3, proximal at 5 mg per hour and he is also on a bicarb drip which I have discontinued today considering his ABG is showing metabolic compensation significant to his respiratory acidosis. Chest x-ray continues to show bilateral subcutaneous emphysema, improved, and bilateral patchy infiltrates I believe a bit better. Chest tubes remain in place, minimal air leak noted in the right-sided chest tube. No air leak noted in the left sided chest tube. Patient remains on enteral feeding, he is receiving Nepro 17/17. WBC count today is 21.7. D-dimer is 3.96. Electrolytes are normal bicarb is 48 BUN is 48 creatinine 0.60. LDH remains high at 2733 however it was as high as 10,002 days ago. C-reactive protein is down to 4.7. Reevaluated today on 06/25/2020, patient remains intubated and mechanically ventilated. He is on assist control rate of 34 tidal volume is 400 FiO2 60% PEEP remains at 20. His ABG today showed a pO2 of 61 pH of 7.38 and pCO2 of 87. Patient continues to have 2 chest tubes for his barotrauma, no air leak noted in the left sided chest tube, but intermittently noted in the right sided chest tube. Patient remains on D5W with bicarbonate 50 ML per hour propofol at 75 clevidipine 2 mg/h Nimbex at 2 fentanyl 3 mcg/kg/h. Chest x-ray continues to show bilateral infiltrates consistent with COVID-19 pneumonia, possibly a small right-sided apical pneumothorax is noted on the chest x-ray today. Left lung is fully expanded. Continues to have a pneumomediastinum and he continues to have subcutaneous emphysema in the neck region especially in the left side. Hence went ahead and placed a small tiny Angiocath, 14-gauge Angiocath to relieve some of the subcutaneous emphysema in the supraclavicular fat pad area WBC count is 16.4 hemoglobin is 12 sodium remains high at 145. Bicarb remains at [address] the patient back on bicarb mostly because of his hyperkalemia and wanted to keep his acidosis under control. Although it is mostly a respiratory type of acidosis alkaline phosphatase is 214, AST is 87. LDH is 2310. C-reactive protein is 4.1, Patient was reevaluated today on 06/26/2020, remains in the ICU, intubated and mechanically ventilated. Agent is on assist control rate of 34 tidal volume is 400 FiO2 is 60% and I cut it down to 55% PEEP was 20 and I cut it down to 18. ABG this morning showed a pO2 of 66 pCO2 of 88 pH of 7.37. Patient remains on Nepro . Patient has bilateral chest tubes, the left-sided chest tube is not showing any leak, however the right-sided chest tube has ongoing intermittent leak. Patient remains on propofol at 75 fentanyl S3 clevidipine 3 mg/h, and Nimbex at 30 mcg/kg/m. Patient is not requiring any pressors. Continues to have some subcu emphysema, but significantly improved compared to the last few days. Chest x-ray is showing minimal improvement. Continues to have some subcu emphysema. And pneumomediastinum. He got his 17 hemoglobin 11.6. Sodium is 146 potassium 5.3, renal profile is normal with BUN of 48 creatinine 0.64. LDH is coming down to 2490, and C-reactive protein is 6. overall I believe there is some improved but the patient remains quite ill, and condition remains very critical. Prognosis remains guarded. Progress note dated 06/27/2020. The patient was admitted to the hospital on June 13. His diagnosis was that of coronavirus infection and pneumonia. The patient was intubated on June 20. He remains on the ventilator, on the volume assist control mode, rate 34, tidal volume 400, FiO2 55%, PEEP 18. Arterial blood gases show pO2 62, PaCO2 87, and a pH is 7.36. The patient remains on Cleveprex at 3 mg an hour, Nimbex at 3 mcg/kg/m, fentanyl at 3 mcg/kg/h, propofol at 75 mcg/kg/m, and tube feedings with Nepro at 28 mL an hour, which is goal. The patient will benefit from a tracheostomy and PEG tube placement. In addition, a new art line will be placed. The patient does have bilateral chest tubes secondary to bilateral pneumothoraces. White count 13.5, hemoglobin 11.9, hematocrit 38.3, and platelet count 148,000. D-dimer is 4.69. Blood gases have been noted. Sodium 150, potassium 5.2, chlorides 101, CO2 52, BUN 52, creatinine 0.76. The patient's sodium bicarbonate IV/drip was discontinued. LDH is 2347 C-reactive protein 8.8. Progress note dated 06/28/2020. This patient was admitted to the hospital on June 13. His initial diagnosis was pneumonia secondary to coronavirus infection, with hypoxemia. The patient was intubated on June 20. Remains on the ventilator. He is seen today again in room 253. Current vent settings included a volume assist control mode rate 34, tidal volume 400, FiO2 55%, and PEEP of 18. Lungs gases show a PaO2 of 62, pCO2 80, and pH is 7.39. The patient is currently on Nimbex at 4 mcg/kg/m, fentanyl at 3 mcg/kg/h, propofol at 50 mcg/kg/m, and tube feedings with Nepro at 28 mL an hour, which is goal. The patient is not receiving any IV fluids. The patient does have bilateral chest tubes. We did ask surgery to consider doing a tracheostomy and PEG tube placement. We going to give the patient D5W at 100 mL an hour, for a sodium of 151. White count 17, hemoglobin 10.8, hematocrit 33.8, platelet count 144,000. D-dimer 3.04. Sodium 151, potassium 4.5, chlorides 105, CO2 46, BUN 66, creatinine 1.31. Sputum from June 21, showed evidence of Moraxella catarrhalis, and oxacillin sensitive staph aureus. Progress note dated 06/29/2020. 55-year-old male, admitted to the hospital on June 13. His diagnosis was coronavirus pneumonia, and hypoxemic respiratory failure. The patient was intubated on June 20. He remains on the ventilator. He is again seen today in room 253. Last night, I did come back to the hospital for a left internal jugular triple-lumen catheter insertion, and, because of worsening pneumothorax on the right side, I inserted the second chest tube in the right pleural space. The follow-up chest x-ray showed significant improvement in the right-sided pneumothorax. The patient remains on the mechanical ventilator, volume assist control mode, rate 34, tidal volume 400, FiO2 70%, PEEP of 18. Blood gases show pO2 of 67, pCO2 76, and a pH is 7.36. Currently, the patient remains on Nimbex, at 5 mcg/kg/m, propofol at 50 mcg/kg/m, and fentanyl at 3 mcg/kg/h. The patient's also getting D5W at 100 mL an hour. Tube feeds on hold, or anticipated tracheostomy tube placement and PEG tube placement today. The patient has 2 chest tubes on the right, one on the left. He has a significant leak from the new right-sided chest tube. He is receiving Nepro at 28 mL an hour, which are currently on hold for the anticipated surgical procedure. White count 12.7, hemoglobin 10.3, hematocrit 31.9, platelet count 139,000. Sodium 150, potassium 4.6, chlorides 107, CO2 42, anion gap 1, BUN 83, creatinine 1.27. Chest x-ray shows patchy airspace disease bilaterally, and improved right-sided pneumothorax, with residual small right apical pneumothorax, less than 10%. Objective - Vital Signs Vital signs: Vital Signs Temp 97.7 F 06/29/20 08:00 Pulse 89 06/29/20 10:00 Resp 37 H 06/29/20 10:00 BP 110/72 06/29/20 02:00 Pulse Ox 93 L 06/29/20 10:00 Intake & Output 06/28/20 06/29/20 06/29/20 18:59 06:59 18:59 Intake Total 7362.856 9889.152 525.721 Output Total 940 1125 230 Balance 886.926 8071.152 295.721 Weight 80.5 kg 78.5 kg Intake: IV 246 1516 318 0.9 KVO 10 Cefepime 2 gm In Sodium 200 100 Chloride 0.9% 100 ml @ 25 mls/hr IVPB Q8HR [facility] Rx# :[id number] Dextrose 5% in Water 1, 1100 300 000 ml @ 100 mls/hr IV . Q10H [facility] Rx#:[id number] Vancomycin 1,500 mg In 250 Sodium Chloride 0.9% 250 ml @ 125 mls/hr IVPB Q12HR [facility] Rx#:[id number] pressure bag 36 66 18 Intake, IV Titration 1170.557 889.152 207.721 Amount Cisatracurium 200 mg In 247.142 320.803 59.373 Sodium Chloride 0.9% 180 ml @ 1 MCG/KG/MIN 3.81 mls/hr IV .Q24H [facility] Rx#: [id number] Dextrose 5% in Water 1, 300 000 ml @ 100 mls/hr IV . Q10H [facility] Rx#:[id number] Vancomycin 1,500 mg In 250 Sodium Chloride 0.9% 250 ml @ 125 mls/hr IVPB Q16H [facility] Rx#:[id number] fentaNYL (PF). 1,000 mcg 194.615 235.586 98.108 In Sodium Chloride 0.9% 80 ml @ Per Protocol IV . Q0M [facility] Rx#:[id number] propofoL 1,000 mg In 178.80 332.763 50.24 Empty Bag 1 bag @ Titrate IV .Q0M [facility] Rx#: [id number] Tube Feeding 364 140 Other 200 Output: Chest Tube Drainage 100 375 100 Chest Tube Left 0 15 Chest Tube Right 100 240 40 Chest Tube Right Upper 120 60 Urine 840 750 130 Other: Voiding Method Indwelling Catheter Indwelling Catheter Indwelling Catheter ABP, PAP, CO, CI - Last Documented Arterial Blood Pressure 121/67 - Exam Currently, the patient is sedated and paralyzed. There is an orally placed endotracheal tube and NG tube. Saturation is 93%. HEENT examination is grossly unremarkable. Neck supple. Full range of motion. No adenopathy thyromegaly or neck vein distention. Some subcutaneous emphysema noted in the neck area. Cardiovascular examination reveals regular rhythm rate. S1-S2 normal. No S3 or S4. No discernible murmur noted. Heart rate 89 bpm. Lungs reveal coarse bilateral rhonchi. Bilateral crackles are also noted. There is also subcutaneous emphysema noted in the left chest area. There are bilateral chest tubes, 2 on the right, one on the left. The new right-sided chest tube, that I placed yesterday, has a significant leak. Abdomen soft bowel sounds are heard. No masses or tenderness. Extremities are intact. No cyanosis clubbing or edema. Skin is without rash or lesion. Neurologic examination could not be assessed as the patient's currently sedated and paralyzed. - Labs CBC & Chem 7: 06/29/20 04:01 06/29/20 04:01 Labs: Abnormal Lab Results - Last 24 Hours (Table) 06/28/20 06/28/20 06/28/20 Range/Units 11:30 17:46 18:59 WBC (3.8-10.6) k/uL RBC (4.30-5.90) m/uL Hgb (13.0-17.5) gm/dL Hct (39.0-53.0) % Plt Count (150-450) k/uL Neutrophils # (1.3-7.7) k/uL Lymphocytes # (1.0-4.8) k/uL ABG pCO2 77 H* (35-45) mmHg ABG pO2 175 H (83-108) mmHg ABG HCO3 45 H* (21-25) mmol/L ABG Total CO2 48 H (19-24) mmol/L ABG O2 Saturation 99.3 H (94-97) % Sodium (137-145) mmol/L Carbon Dioxide (22-30) mmol/L BUN (9-20) mg/dL Creatinine (0.66-1.25) mg/dL Glucose (74-99) mg/dL POC Glucose (mg/dL) 196 H 181 H (75-99) mg/dL Total Protein (6.3-8.2) g/dL Albumin (3.5-5.0) g/dL 06/29/20 06/29/20 06/29/20 Range/Units 00:03 04:01 04:01 WBC 12.7 H (3.8-10.6) k/uL RBC 3.34 L (4.30-5.90) m/uL Hgb 10.3 L (13.0-17.5) gm/dL Hct 31.9 L (39.0-53.0) % Plt Count 139 L (150-450) k/uL Neutrophils # 11.5 H (1.3-7.7) k/uL Lymphocytes # 0.7 L (1.0-4.8) k/uL ABG pCO2 (35-45) mmHg ABG pO2 (83-108) mmHg ABG HCO3 (21-25) mmol/L ABG Total CO2 (19-24) mmol/L ABG O2 Saturation (94-97) % Sodium 150 H (137-145) mmol/L Carbon Dioxide 42 H* (22-30) mmol/L BUN 83 H (9-20) mg/dL Creatinine 1.27 H (0.66-1.25) mg/dL Glucose 121 H (74-99) mg/dL POC Glucose (mg/dL) 168 H (75-99) mg/dL Total Protein 5.1 L (6.3-8.2) g/dL Albumin 2.4 L (3.5-5.0) g/dL 06/29/20 06/29/20 Range/Units 04:54 06:08 WBC (3.8-10.6) k/uL RBC (4.30-5.90) m/uL Hgb (13.0-17.5) gm/dL Hct (39.0-53.0) % Plt Count (150-450) k/uL Neutrophils # (1.3-7.7) k/uL Lymphocytes # (1.0-4.8) k/uL ABG pCO2 76 H* (35-45) mmHg ABG pO2 67 L (83-108) mmHg ABG HCO3 43 H* (21-25) mmol/L ABG Total CO2 46 H (19-24) mmol/L ABG O2 Saturation 92.5 L (94-97) % Sodium (137-145) mmol/L Carbon Dioxide (22-30) mmol/L BUN (9-20) mg/dL Creatinine (0.66-1.25) mg/dL Glucose (74-99) mg/dL POC Glucose (mg/dL) 127 H (75-99) mg/dL Total Protein (6.3-8.2) g/dL Albumin (3.5-5.0) g/dL Microbiology - Last 24 Hours (Table) 06/27/20 22:24 Blood Culture - Preliminary Blood No Growth after 24 hours 06/28/20 00:40 Gram Stain - Preliminary Sputum Sputum Culture - Preliminary 06/27/20 18:31 Blood Culture - Preliminary Blood No Growth after 24 hours 06/27/20 18:32 Urine Culture - Final Urine,Catheterized Assessment and Plan Assessment: Acute hypoxemic respiratory failure secondary to COVID 19 pneumonia/pneumonitis. Failure to progress from mechanical ventilation, with anticipated tracheostomy and PEG tube placement in the near future. Acute barotrauma from mechanical ventilation, and relatively high PEEP levels, requiring bilateral chest tubes, 2 on the right, and 1 on the left. Oxacillin sensitive staph aureus and Moraxella catarrhalis tracheobronchitis/bronchopneumonia. Hypernatremia. Elevated inflammatory markers. Hypotension, resolved. Hypertension, Cleveprex weaned off. Thrombocytopenia, secondary to sepsis. Plan: Plan dated 06/27/2020. The bicarbonate drip will be discontinued given the fact that the patient's sodium is quite high. No ventilator changes today. The patient will need a tracheostomy and PEG tube placement. Surgery will be consulted. In addition, a new arterial line will be placed today. Additional recommendations and suggestions are forthcoming. Prognosis is very guarded. We'll continue to follow make recommendations where appropriate. Plan dated 06/28/2020. The nurse did speak to the family about tracheostomy and PEG tube placement. Apparently they wanted to wait 1 additional day. Surgery was consulted. Yesterday, we replaced a arterial line that had gone bad. Overall prognosis remains guarded. We'll continue to follow. Labs, x-rays, medications are all reviewed. The patient remains on propofol, fentanyl, and Nimbex. He is getting nutrition with Nepro at goal. We will continue to follow make recommendations where needed. Also, because of the patient's hypernatremia, the patient be given D5W at 100 mL an hour. Plan dated 06/29/2020. I placed another right-sided chest tube last night. In addition, I did insert a left internal jugular triple-lumen catheter. I was not convinced that the PICC line in the right arm was functioning normally. The patient remains on Nimbex, propofol, and fentanyl. Hopefully, the patient will have a tracheostomy tube and PEG tube placed today. Tube feeds are on hold. The new right-sided chest tube has a significant leak and volumes of being lost from the chest tube. Additional recommendations and suggestions are forthcoming. We will continue to follow. Prognosis is guarded. Time with Patient: Greater than 30
[2020-06-29] MEDS ORDERED: VECURONIUM 10 MG VIAL IV ONE (10:37)
[2020-06-29 12:03] LABS: Glucose,Whole Blood 127 mg/dL (75-99)
--- NOTE | 2020-06-29 15:35 | P.PN ---
Subjective Progress Note Date: 06/29/20 Principal diagnosis: Acute COVID-19 pneumonia, pneumomediastinum, extensive subcutaneous emphysema, acute hypoxic respiratory failure, elevated inflammatory markers secondary to Co vid-19, leukocytosis, thrombocytopenia, hypotension post intubation, respiratory acidosis POD #9 placement of bilateral chest tubes by Dr. Dominique POD #1 placement of second right pleural chest tube by Dr. Henry POD #0 tracheostomy and peg tube placement by Dr. Apodaca The patient remains laying in bed in the intensive care unit, remains intubated, sedated, and paralyzed. Bilateral chest tubes remain in place, continuous air leak present in the right chest tube, no air leaks present in left chest tube, minimal drainage, subcutaneous emphysema remains present, continues to be less everyday. Second right sided pleural chest tube placed by Dr. Henry last night due to increased right sided pneumothorax. CXR reviewed this morning, decrease in right pneumothorax. Ventilator changes continued to be made by pulmonology, currently on 70% FiO2 and 18 PEEP. WBC 12.7. Tmax 99F last 24 hours. Suputum culture positive for MSSA, moraxella, remains on IV cefepime, vanco. Remains sinus rhythm to sinus tach with HR high 90s-low 100s. Remains on fentanyl, propofol and nimbex. Trach and peg done today. PICC removed yesterday, left subclavian triple lumen central line placed. Objective - Vital Signs Vital signs: Vital Signs Temp 98.2 F 06/29/20 12:00 Pulse 110 H 06/29/20 14:00 Resp 41 H 06/29/20 14:00 BP 110/72 06/29/20 02:00 Pulse Ox 93 L 06/29/20 14:00 Intake & Output 06/28/20 06/29/20 06/29/20 18:59 06:59 18:59 Intake Total 0989.481 5044.152 1155.024 Output Total 940 1125 790 Balance 951.239 2758.152 365.024 Weight 80.5 kg 78.5 kg Intake: IV 246 1516 848 0.9 KVO 10 Cefepime 2 gm In Sodium 200 100 Chloride 0.9% 100 ml @ 25 mls/hr IVPB Q8HR [facility] Rx# :[id number] Dextrose 5% in Water 1, 1100 800 000 ml @ 100 mls/hr IV . Q10H [facility] Rx#:[id number] Vancomycin 1,500 mg In 250 Sodium Chloride 0.9% 250 ml @ 125 mls/hr IVPB Q12HR [facility] Rx#:[id number] pressure bag 36 66 48 Intake, IV Titration 1170.557 889.152 307.024 Amount Cisatracurium 200 mg In 247.142 320.803 59.373 Sodium Chloride 0.9% 180 ml @ 1 MCG/KG/MIN 3.81 mls/hr IV .Q24H [facility] Rx#: [id number] Dextrose 5% in Water 1, 300 000 ml @ 100 mls/hr IV . Q10H [facility] Rx#:[id number] Vancomycin 1,500 mg In 250 Sodium Chloride 0.9% 250 ml @ 125 mls/hr IVPB Q16H [facility] Rx#:[id number] fentaNYL (PF). 1,000 mcg 194.615 235.586 98.108 In Sodium Chloride 0.9% 80 ml @ Per Protocol IV . Q0M [facility] Rx#:[id number] propofoL 1,000 mg In 178.80 332.763 149.543 Empty Bag 1 bag @ Titrate IV .Q0M [facility] Rx#: [id number] Tube Feeding 364 140 Other 200 Output: Chest Tube Drainage 100 375 200 Chest Tube Left 0 15 30 Chest Tube Right 100 240 100 Chest Tube Right Upper 120 70 Urine 840 750 590 Other: Voiding Method Indwelling Catheter Indwelling Catheter Indwelling Catheter ABP, PAP, CO, CI - Last Documented Arterial Blood Pressure 115/69 - Exam CONSTITUTIONAL: Remains sedated and paralyzed on mechanical ventilation EYES: Subcutaneous emphysema resolved over both eyes ENT: Moist mucous membranes without oral lesions present NECK: No masses, no bruits, trachea midline, #8 Bivona tracheostomy present RESPIRATORY: Lungs sounds diminished and coarse to auscultation bilaterally. Currently on mechanical ventilation, assist control mode, FiO2 70%, PEEP 18, tidal volume 400, respiratory rate 34. Subcutaneous emphysema present to upper chest, neck, less than yesterday. CARDIOVASCULAR: S1, S2 present. Regular rate and rhythm, sinus rhythm to sinus tach on telemetry with heart rate in the high 90s-low 100s. Palpable peripheral pulses bilaterally. SCDs present. GASTROINTESTINAL: Abdomen soft, nondistended without masses or organomegaly noted. Active bowel sounds present 4 quadrants. PEG tube present, clamped GENITOURINARY: Indwelling catheter present draining clear, yellow urine. Urine output 30-60mL/hr INTEGUMENTARY: Skin is warm and dry NEUROLOGIC: Unable to assess as patient is currently receiving IV paralytic. Train of 4 per nursing INVASIVE LINES/TUBES: Left subclavian triple lumen central line present. Right pleural chest tubes x 2 and left pleural chest tube present, continuous air leak noted in second right chest tube, no air leak present in left chest tube, minimal drainage. - Allied health notes Allied health notes reviewed: nursing - Labs CBC & Chem 7: 06/29/20 04:01 06/29/20 04:01 Labs: Abnormal Lab Results - Last 24 Hours (Table) 06/28/20 06/28/20 06/29/20 Range/Units 17:46 18:59 00:03 WBC (3.8-10.6) k/uL RBC (4.30-5.90) m/uL Hgb (13.0-17.5) gm/dL Hct (39.0-53.0) % Plt Count (150-450) k/uL Neutrophils # (1.3-7.7) k/uL Lymphocytes # (1.0-4.8) k/uL ABG pCO2 77 H* (35-45) mmHg ABG pO2 175 H (83-108) mmHg ABG HCO3 45 H* (21-25) mmol/L ABG Total CO2 48 H (19-24) mmol/L ABG O2 Saturation 99.3 H (94-97) % Sodium (137-145) mmol/L Carbon Dioxide (22-30) mmol/L BUN (9-20) mg/dL Creatinine (0.66-1.25) mg/dL Glucose (74-99) mg/dL POC Glucose (mg/dL) 181 H 168 H (75-99) mg/dL Total Protein (6.3-8.2) g/dL Albumin (3.5-5.0) g/dL 06/29/20 06/29/20 06/29/20 Range/Units 04:01 04:01 04:54 WBC 12.7 H (3.8-10.6) k/uL RBC 3.34 L (4.30-5.90) m/uL Hgb 10.3 L (13.0-17.5) gm/dL Hct 31.9 L (39.0-53.0) % Plt Count 139 L (150-450) k/uL Neutrophils # 11.5 H (1.3-7.7) k/uL Lymphocytes # 0.7 L (1.0-4.8) k/uL ABG pCO2 76 H* (35-45) mmHg ABG pO2 67 L (83-108) mmHg ABG HCO3 43 H* (21-25) mmol/L ABG Total CO2 46 H (19-24) mmol/L ABG O2 Saturation 92.5 L (94-97) % Sodium 150 H (137-145) mmol/L Carbon Dioxide 42 H* (22-30) mmol/L BUN 83 H (9-20) mg/dL Creatinine 1.27 H (0.66-1.25) mg/dL Glucose 121 H (74-99) mg/dL POC Glucose (mg/dL) (75-99) mg/dL Total Protein 5.1 L (6.3-8.2) g/dL Albumin 2.4 L (3.5-5.0) g/dL 06/29/20 06/29/20 Range/Units 06:08 12:01 WBC (3.8-10.6) k/uL RBC (4.30-5.90) m/uL Hgb (13.0-17.5) gm/dL Hct (39.0-53.0) % Plt Count (150-450) k/uL Neutrophils # (1.3-7.7) k/uL Lymphocytes # (1.0-4.8) k/uL ABG pCO2 (35-45) mmHg ABG pO2 (83-108) mmHg ABG HCO3 (21-25) mmol/L ABG Total CO2 (19-24) mmol/L ABG O2 Saturation (94-97) % Sodium (137-145) mmol/L Carbon Dioxide (22-30) mmol/L BUN (9-20) mg/dL Creatinine (0.66-1.25) mg/dL Glucose (74-99) mg/dL POC Glucose (mg/dL) 127 H 127 H (75-99) mg/dL Total Protein (6.3-8.2) g/dL Albumin (3.5-5.0) g/dL Microbiology - Last 24 Hours (Table) 06/28/20 00:40 Gram Stain - Preliminary Sputum Sputum Culture - Preliminary Presumptive Staph aureus 06/27/20 22:24 Blood Culture - Preliminary Blood No Growth after 24 hours 06/27/20 18:31 Blood Culture - Preliminary Blood No Growth after 24 hours 06/27/20 18:32 Urine Culture - Final Urine,Catheterized - Imaging and Cardiology Chest x-ray: report reviewed, image reviewed Assessment and Plan Assessment: 1. Acute COVID-19 pneumonia 2. Pneumomediastinum, extensive subcutaneous emphysema, S/P placement of right and left pleural chest tubes by pulmonology, S/P placement of 14g angiocath to left neck 3. Acute hypoxic respiratory failure, remains on mechanical ventilation, S/P tracheostomy placement 4. Elevated inflammatory markers secondary to Covid 5. Leukocytosis, febrile, sputum culture from 06/21/20 growing MSSA and morexella 6. Thrombocytopenia, resolved 6. Hypotension post intubation, currently normotensive on no pressors 7. Respiratory acidosis Plan: 1. Continue both chest tubes to continuous wall suction, monitor for resolution of subcutaneous emphysema, airleak. No plans to remove chest tube anytime soon 2. Mechanical ventilation, sedation, paralytic, antibiotics, covid managment per recruit instructor. 3. No thoracic surgery is warranted 4. GI/DVT prophylaxis 5. Will monitor daily CXR 6. Patient remains critically ill with poor prognosis Time with Patient: Greater than 30
--- NOTE | 2020-06-29 15:39 | P.PN ---
Subjective Progress Note Date: 06/29/20 HISTORY OF PRESENT ILLNESS This is a 55-year-old male patient of Dr. Maxwell Alexander with significant past medical history. Patient states he started having symptoms on June 01 and was diagnosed with COVID-19 on June 08. Patient symptoms or body aches and fatigue as well as cough with white sputum production, increasing shortness of breath and measured pulse ox at home which worsened. He complains of headache chills and nausea. Patient presented to [facility] emergency center for evaluation. Patient was afebrile, heart rate 101, blood pressure 114/75, pulse ox 86% on room air. WBC 6.4, hemoglobin 16.2, platelet count 153. D-dimer 0.84. AST 106, ALT 44, alkaline phosphatase 57, LDH 2547. CRP 150. Sodium 129, potassium 4.6, chloride 97, CO2 23, BUN 12 and creatinine 0.84. Blood sugar 114. Chest x-ray reveals extensive pulmonary infiltrates related to pneumonia and ARDS. CTA of the chest reveals no pulmonary embolism. Patchy areas of nodular consolidations in the bilateral lower lobes with groundglass consolidation of the peripheral of the bilateral upper lobes consistent with multifocal infection compatible with Covid pneumonia. No pleural effusions or pneumothorax. Patient has been seen by pulmonary medicine is not a candidate f or Remdesivir. Convalescent plasma has been ordered as well as Tocilizumab 1 dose. Patient is currently pulse ox 95% on 15 L nonrebreather. 06/15: Repeat chest x-ray reveals worsening infiltrates. Patient is currently on nonrebreather and nasal cannula with pulse ox of 89%. Patient states that he is not sleeping because of coughing. He continues to have cough, shortness of breath. Noted to be tachypneic. Patient states he is eating okay. Melatonin, Flonase and Tessalon Perles added. Patient has been afebrile, heart rate 87, respiratory rate 32, blood pressure 112/70. Repeat blood work reveals WBC 11.4, hemoglobin 15.4, platelet count 208. D-dimer 0.95. Sodium 136 other electroly jagdeep and renal function normal. Blood sugar 118. AST 96, ALT 67, alkaline phosphatase 70. LDH 2884. C-reactive protein 59.4. 06/16: Patient's pulse ox is 90-92% on high flow nasal cannula at 13 L along with 100% nonrebreather. Patient was seen by Dr. Kern plan is to try and wean off 100% oxygen. Patient states that his breathing is stable today. He continues to have shortness of breath with minimal activity and cough. Patient started on mycelex noemi for thrush. He has been afebrile, heart rate 80, blood pressure 114/69. Repeat chest x-ray reveals improving bilateral lung infiltra jagdeep. Patient is continued on dexamethasone, Lovenox and vitamin supplements. 06/17: Yesterday afternoon, received call the patient had subcutaneous emphysema that was new and stat chest x-ray was ordered. This revealed interval development of subcutaneous emphysema within the bilateral neck. Some pneumo mediastinum may be present as the source. Pneumothorax is identified. This was reviewed by Dr. Kern at the time. Last evening at 2200, A-Team was called for puffiness of the neck and shoulder skin. Repeat chest x-ray revealed prominent interval increase in subcutaneous emphysema pattern. Patient was transferred to the intensive care unit. Patient has been seen in the intensive care unit today. He remains on 15 L high flow nasal cannula in addition to 100% nonrebreather facemask. D-dimer is 17.6, LDH 533. Patient remains on Decadron, Lovenox and supplements. Promethazine was added for cough suppression. Subcutaneous emphysema is stable. 06/18 patient evaluated bedside has worsening subcutaneous emphysema. Does appear anxious on examination. He is on Xanax to 0.25 mg twice a day with no improvement in patient's and slightly. We'll repeat chest x-ray does suggest tiny pneumothorax in addition to subcutaneous emphysema. Patient is currently maintaining oxygen saturation on interval 60 L with FiO2 of 90% with a nonrebreather 100%. Minimum exertion is causing desaturation. Patient appears to have worsening inflammation markers including worsening LDH and liver enzymes. Pulmonary care for management of the Covid. Continues to keep patient on dexamethasone, convalescent plasma. Patient is not a candidate for remdesivir. We will start patient on Lexapro 10 mg daily at bedtime to help with anxiety. IV fluids switch to D5NS as patient is not eating being on mask and is hungry. 06/19 patient evaluated bedside has worsening subcutaneous emphysema, facial swelling and pneumomediastinum. Patient is alert and keeping saturation 90-92% on BiPAP. He appears anxious and is breathing at 26 respiratory rate per minute. Blood pressure 1:30/74 heart rate of 113.chest x-rays consistent with bilateral subcutaneous emphysema and pneumomediastinum any apical pneumothorax dizzy and chest tube at this point. On evaluation patient's labs patient's leukocytosis and 19 sodium stable at 1:30, creatinine 0.67 and ferritin is 3144 elevated liver enzymes early at 7846 increased from prior low albumin. patient continues to have increased in size the despite initiation of Remeron will increase Remeron to 30 mg at bedtime Xanax increased to 0.5 twice a day f rom 0.25. Ativan can be given if patient is unable to tolerate oral medication. Plan to start patient on TPN tomorrow. Low sodium could be a results of D5W 06/20: Repeat blood work reveals WBC 29.6, hemoglobin 17, platelet count 124. D- dimer greater than 35. Sodium 132, potassium 5.4, chloride 95, CO2 31, BUN 28 creatinine 0.75. Blood sugar 162. AST 131, ALT 92, alkaline phosphatase 310. LDH 9901. CK 501. C-reactive protein 3.7. Patient became more hypoxic during the night with pulse ox down to the low 70s with mental status changes. Patient was intubated and placed on mechanical ventilation. Tidal volume 400, FiO2 of 75% and PEEP of 18. He is on propofol, Nimbex, levo fed was started and he is status post 2 L of IV fluid. He has on a fentanyl drip. Patient has extensive subcutaneous emphysema. Remeron and clotrimazole discontinued 06/21: Patient remains intubated and on mechanical ventilation. Tidal volume 400, FiO2 decreased from 85-80% this morning, PEEP 16. Patient had bilateral chest tubes placed for pneumothorax bilaterally. This was done last evening. Patient is currently on Nimbex, fentanyl, levo fed. He is on tube feedings at goal. Temperature max 100.2, heart rate 107, respiratory rate 33, blood pressure 118/62, pulse ox 90% with goal to keep above 85%. Repeat blood work reveals WBC 15.9, hemoglobin 14.6, platelet count 96. Sodium 137, potassium 5.1, chloride 100, CO2 39, BUN 26 and creatinine 0.69. Phosphorus 7.3. Magnesium 3.0. Total bilirubin 0.7, AST 59, ALT 61, alkaline phosphatase 190. D-dimer 14.6. LDH 3891. CK 902. C-reactive protein 4.1. Repeat chest x-ray reveals persistent severe bilateral subcutaneous emphysema limiting assessment. Underlying groundglass changes persist. Bilateral chest tubes. Right apical pneumothorax smaller 6 mm versus 2 cm previously. Left apical pneumothorax no longer seen. Better demonstrated pneumomediastinum though suspected to have decreased compared to prior exam. Patient does have less subcutaneous emphysema. 06/22: She remains intubated and on mechanical ventilation with tidal volume 400, FiO2 was 100% this morning and decrease to 70, PEEP is 20. Patient is on propofol and fentanyl as well as Nimbex and bicarb drip. He is not on norepinephrine. Patient is on tube feedings at goal. He remains with bilateral chest tubes in place, no air leak. He has been afebrile, heart rate 108, respiratory rate 34, a pressure 108/61, pulse ox is 90%. Repeat blood work reveals WBC 20, hemoglobin 13.7. D-dimer 10.74. CO2 42, BUN 31 creatinine 0.63. Blood sugars running between 130s to 177. Repeat chest x-ray reveals stable findings. patient remains intubated with a tidal volume of 400 FiO2 of 65% PEEP 20. Patient continues to remain sedated and paralyzed on propofol, fentanyl Precedex and Pneumovax. Continues to have chest tubes with slight air leaks noted. Ch est x-ray continues to remain the same with bilateral patchy infiltrate and subcutaneous emphysema. Vitals this morning suggests tachycardia 120 respiratory rate 34 saturating 90% on 65% FiO2 blood pressure 128/71 labs suggestive leukocytosis of 17.6 hemoglobin 12.9 ABG drawn at this morning sugges ts a pH of 7.3 pCO2 86 pO2 77 bicarb 50. Patient's LDH is 12,748. CRP 7. 06/24 patient remains intubated and mechanically ventilated sedated and paralyzed on assist control with a tidal volume of 400 FiO2 60% PEEP on 20 respiratory rate of 14. ABG done this morning suggests a pO2 of 75 pCO2 83. 7.39. Patient continues to remain on propofol and Pneumovax and fentanyl. The bicarb drip discontinued. 10 chest x-ray shows bilateral subcutaneous emphysema with bilateral patchy infiltrates. Concern for small right apical pneumothorax measuring 1.2 cm versus 9 mm previously. Patient continues to have bilateral chest tubes, minimally leak noted in the right-sided chest tube. No air leak on the left-sided chest tube. Patient remains on enteral feeding. In assessment of patient's blood work slight improvement in CRP noted at 4.7H improved to 2733 liver enzymes continue to rise with AST of 90 ALT 105 alkaline phosphatase 2:30. Bicarb increased to 48. Bicarb drip discontinued. Potassium is noted to be high. One dose of Kayexalate ordered 06/25: Patient remains intubated and mechanically ventilated sedated on pressors on assist control and tidal volume of 400 FiO2 PEEP of 20. Respirations of 14. Patient continues to remain on propofol and Pneumovax and fentanyl. The bicarb drip has been discontinued. Today's chest x-ray shows bilateral subcutaneous emphysema bilateral patchy infiltrates they're similar to the prior exam. Patient continues to have bilateral chest tubes. A 14 Angiocath was inserted into his neck to help relieve subcutaneous emphysema. Patient remains on enternal feeding. WCC 60.4, hemoglobin 12.1, platelets 159, potassium 5.1, BUN 48, creatinine 0.63. ABG pH 7.38, pCO2 87, pO2 61, HCO3 51, ABG O2 sat 91. 06/26: Maintained intubated and mechanically ventilated sedated and paralyzed on assist control with FiO2 on 65% and a PEEP of 18. WBC 17, hemoglobin 11.6, potassium 5.3, BUN 48, creatinine 0.64 d-dimer 3.67,. Temperature 99.9. Patient continues to remain on propofol and Pneumovax and fentanyl. Chest x-ray findings similar to prior exam. Angiocath to the left subclavian to help with subcutaneous emphysema. Substance emphysema is improved compared to yesterday with less edema to face and neck. Patient remains on enternal feeding. Bilateral chest tubes in place and draining. 06/27: Patient remain intubated and sedated still required high FiO2 with higher PEEP to keep his pulse ox above 90 percentile. Patient subcutaneous emphysema slightly but better today there is no more swelling and eyelid this point. Patient still sedated. Patient will be going for trach and PEG tube tomorrow, patient probably will require longer term vent management. 06/28: Patient remains in the ICU, still intubated and sedated bilateral chest tubes in place with intermittent air leaks to the right chest tube. He continues on cefepime for positive cultures for MSSA and moraxella. Subcutaneous emphysema status post placement of 14-gauge Angiocath to left neck has improved. He will be going for tracheostomy and PEG tube placement today. Bicarbonate drip was discontinued due to hyponatremia and he was started on D5W. 06/29: A shunt underwent PEG tube and trach placement today. He also had a second right-sided chest tube placed by Dr. Patel last night. Patient now has 2 chest tubes on the right and one on the left. He remains on mechanical ventilation with tidal volume 500, FiO2 70, PEEP of 18. He has been afebrile for 24 hours. Heart rate 101, respiratory rate 36, blood pressure 100/61, pulse ox 96%. WBC 12.7, hemoglobin 10.3, platelet count 139. Sodium 150, potassium 4.6, chloride 107, CO2 42, BUN 83 and creatinine of 1.27. Blood sugars running between 121-168. REVIEW OF SYSTEMS Unable to obtain due to intubation. PHYSICAL EXAMINATION Gen: This is a 55-year-old male. He is resting in ICU bed appears to be comfortable. Facial swelling continues, slightly improved. HEENT: Head is atraumatic, normocephalic. NECK: Subcutaneous emphysema. chest : Chest tube noted with minimal air leak noted on the right chest tube no air leak noted on the left chest tube Cardiac: Regular rate S1-S2 no S3 or JVD. Abdomen slightly distended mild bruise positive bowel sounds. Extremities trace edema bilaterally. Neurologic exam patient is sedated currently on mechanical ventilation. ASSESSMENT AND PLAN 1. Acute hypoxic respiratory failure secondary to Covid 19 pneumonia requiring intubation and mechanical ventilation on 06/19. Patient has been seen by pulmonary medicine status post Convalescent plasma and Tocilizumab 1 dose. Continue dexamethasone 6 mg IV every 24 hours, Lovenox 40 mg subcu twice daily, vitamins, cefepime 2 g IV piggyback every 8 hours. Patient is off vasopressors. He is status post trach and PEG tube insertion. 2. Elevated inflammatory markers secondary to Covid 19. Continue to monitor. 3. Mild hyponatremia. Continue IV fluids. 4. Elevated d-dimer. Acute pulmonary embolism has been ruled out by CTA. 5. Lymphocytopenia secondary to Covid 19. 6. Thrush. Patient started on Mycelex troches. 7. Subcutaneous emphysema and pneumomediastinum, stable. Status post bilateral chest tube insertion with improvement. 8. Thrombocytopenia secondary to Covid. Continue to monitor. 9. Metabolic acidosis. Patient is on bicarb drip. 10. Her glycemia. Continue Accu-Cheks and sliding scale insulin. 11. GI prophylaxis. Protonix daily. 12. DVT prophylaxis. Lovenox. Prognosis is guarded. Impression and plan of care have been directed as dictated by the signing physician. Cathy Quintanilla nurse practitioner acting as scribe for signing physician. Objective - Vital Signs Vital signs: Vital Signs Temp 98.2 F 06/29/20 12:00 Pulse 101 H 06/29/20 12:00 Resp 36 H 06/29/20 12:00 BP 110/72 06/29/20 02:00 Pulse Ox 96 06/29/20 12:00 Intake & Output 06/28/20 06/29/20 06/29/20 18:59 06:59 18:59 Intake Total 5039.430 2129.152 843.721 Output Total 940 1125 510 Balance 485.085 5497.152 333.721 Weight 80.5 kg 78.5 kg Intake: IV 246 1516 636 0.9 KVO 10 Cefepime 2 gm In Sodium 200 100 Chloride 0.9% 100 ml @ 25 mls/hr IVPB Q8HR [facility] Rx# :[id number] Dextrose 5% in Water 1, 1100 600 000 ml @ 100 mls/hr IV . Q10H [facility] Rx#:[id number] Vancomycin 1,500 mg In 250 Sodium Chloride 0.9% 250 ml @ 125 mls/hr IVPB Q12HR [facility] Rx#:[id number] pressure bag 36 66 36 Intake, IV Titration 1170.557 889.152 207.721 Amount Cisatracurium 200 mg In 247.142 320.803 59.373 Sodium Chloride 0.9% 180 ml @ 1 MCG/KG/MIN 3.81 mls/hr IV .Q24H [facility] Rx#: [id number] Dextrose 5% in Water 1, 300 000 ml @ 100 mls/hr IV . Q10H [facility] Rx#:[id number] Vancomycin 1,500 mg In 250 Sodium Chloride 0.9% 250 ml @ 125 mls/hr IVPB Q16H [facility] Rx#:[id number] fentaNYL (PF). 1,000 mcg 194.615 235.586 98.108 In Sodium Chloride 0.9% 80 ml @ Per Protocol IV . Q0M [facility] Rx#:[id number] propofoL 1,000 mg In 178.80 332.763 50.24 Empty Bag 1 bag @ Titrate IV .Q0M [facility] Rx#: [id number] Tube Feeding 364 140 Other 200 Output: Chest Tube Drainage 100 375 200 Chest Tube Left 0 15 30 Chest Tube Right 100 240 100 Chest Tube Right Upper 120 70 Urine 840 750 310 Other: Voiding Method Indwelling Catheter Indwelling Catheter Indwelling Catheter ABP, PAP, CO, CI - Last Documented Arterial Blood Pressure 100/61 - Labs CBC & Chem 7: 06/29/20 04:01 06/29/20 04:01 Labs: Abnormal Lab Results - Last 24 Hours (Table) 06/28/20 06/28/20 06/29/20 Range/Units 17:46 18:59 00:03 WBC (3.8-10.6) k/uL RBC (4.30-5.90) m/uL Hgb (13.0-17.5) gm/dL Hct (39.0-53.0) % Plt Count (150-450) k/uL Neutrophils # (1.3-7.7) k/uL Lymphocytes # (1.0-4.8) k/uL ABG pCO2 77 H* (35-45) mmHg ABG pO2 175 H (83-108) mmHg ABG HCO3 45 H* (21-25) mmol/L ABG Total CO2 48 H (19-24) mmol/L ABG O2 Saturation 99.3 H (94-97) % Sodium (137-145) mmol/L Carbon Dioxide (22-30) mmol/L BUN (9-20) mg/dL Creatinine (0.66-1.25) mg/dL Glucose (74-99) mg/dL POC Glucose (mg/dL) 181 H 168 H (75-99) mg/dL Total Protein (6.3-8.2) g/dL Albumin (3.5-5.0) g/dL 06/29/20 06/29/20 06/29/20 Range/Units 04:01 04:01 04:54 WBC 12.7 H (3.8-10.6) k/uL RBC 3.34 L (4.30-5.90) m/uL Hgb 10.3 L (13.0-17.5) gm/dL Hct 31.9 L (39.0-53.0) % Plt Count 139 L (150-450) k/uL Neutrophils # 11.5 H (1.3-7.7) k/uL Lymphocytes # 0.7 L (1.0-4.8) k/uL ABG pCO2 76 H* (35-45) mmHg ABG pO2 67 L (83-108) mmHg ABG HCO3 43 H* (21-25) mmol/L ABG Total CO2 46 H (19-24) mmol/L ABG O2 Saturation 92.5 L (94-97) % Sodium 150 H (137-145) mmol/L Carbon Dioxide 42 H* (22-30) mmol/L BUN 83 H (9-20) mg/dL Creatinine 1.27 H (0.66-1.25) mg/dL Glucose 121 H (74-99) mg/dL POC Glucose (mg/dL) (75-99) mg/dL Total Protein 5.1 L (6.3-8.2) g/dL Albumin 2.4 L (3.5-5.0) g/dL 06/29/20 06/29/20 Range/Units 06:08 12:01 WBC (3.8-10.6) k/uL RBC (4.30-5.90) m/uL Hgb (13.0-17.5) gm/dL Hct (39.0-53.0) % Plt Count (150-450) k/uL Neutrophils # (1.3-7.7) k/uL Lymphocytes # (1.0-4.8) k/uL ABG pCO2 (35-45) mmHg ABG pO2 (83-108) mmHg ABG HCO3 (21-25) mmol/L ABG Total CO2 (19-24) mmol/L ABG O2 Saturation (94-97) % Sodium (137-145) mmol/L Carbon Dioxide (22-30) mmol/L BUN (9-20) mg/dL Creatinine (0.66-1.25) mg/dL Glucose (74-99) mg/dL POC Glucose (mg/dL) 127 H 127 H (75-99) mg/dL Total Protein (6.3-8.2) g/dL Albumin (3.5-5.0) g/dL Microbiology - Last 24 Hours (Table) 06/27/20 22:24 Blood Culture - Preliminary Blood No Growth after 24 hours 06/28/20 00:40 Gram Stain - Preliminary Sputum Sputum Culture - Preliminary 06/27/20 18:31 Blood Culture - Preliminary Blood No Growth after 24 hours 06/27/20 18:32 Urine Culture - Final Urine,Catheterized
--- NOTE | 2020-06-29 16:02 | P.OP ---
Date of Procedure: 06/29/20 Preoperative Diagnosis: Respiratory failure Malnutrition Postoperative Diagnosis: Respiratory failure Malnutrition Procedure(s) Performed: Tracheostomy PEG tube Anesthesia: ADAMA Surgeon: Tonio Apodaca Pathology: none sent Condition: critical Disposition: ICU Description of Procedure: The patient's placed on the operative table in the supine position. He received general anesthesia. His neck was prepped and draped in sterile fashion. A standard Rupert incision was made. And then using ultrasound and subcu tissues were divided. The strap muscles were divided in the midline. The Zepeda traction placed a wound. The thyroid gland was visualized. The trachea was then visualized. The D[employer] placed the endotracheal tube into the right mainstem bronchus. The tracheotomy performed and second tracheal rings. The endotracheal tube was brought back under direct vision the #7 Prolene adjustable cough tracheotomy tube was placed into the trachea. The balloon was inflated. End tidal CO2 was confirmed. The patient developed. The retraction withdrawn. The skin was closed interrupted 3-0 nylon suture. Next the gastroscope oropharynx is esophagus and stomach. The stomach was insufflated air. Suitable light reflux was seen. The stay sutures were then placed under direct visualization into the stomach. 4 stay sutures were placed. Next a skin incision was made 11 blade. The needles placed and stomach under direct visualization. And then the wire was placed into the stomach. The dilator sheath placed over top the wire. And then the GABRIEL tube was placed through the dilator sheath into the stomach. The dilator sheath was removed. And then the wound was inspected for the GABRIEL tube with 5 mL of saline. The bolster was positioned appropriately position. Patient top she will was sent to ICU in stable condition.
--- NOTE | 2020-06-29 16:40 | PN ---
PROGRESS NOTE DATE OF SERVICE: 06/29/2020 REASON FOR FOLLOWUP: Pneumonia. INTERVAL HISTORY: The patient has been afebrile, with no fever in the last 24 hours. The patient did have a pneumothorax requiring another chest tube placement. The patient is currently hemodynamically stable, not on any pressor support. FiO2 is currently up to 70%. No significant purulent secretions through the ET or diarrhea reported by nursing staff. PHYSICAL EXAMINATION: Blood pressure 121/66, pulse of 97, temperature 98.2. He is 92% on 70% FiO2. General description is a middle-aged male intubated on the vent. RESPIRATORY SYSTEM: Unlabored breathing with decreased breath sounds at the base. HEART: S1, S2. Regular rate and rhythm. NAUSEA ABDOMEN: Soft. No tenderness. LABS: Hemoglobin is 10, white count down to 12.7, BUN of 83, creatinine 1.27. Repeat sputum now showing presumptive Staph aureus. DIAGNOSTIC IMPRESSION AND PLAN: Patient with sepsis. Source is multifactorial in this patient who did have pneumonia with MSSA and Moraxella, for which the patient is on cefepime. Did have recurrent fever requiring addition of vancomycin, which is currently continued. Kidney function is being monitored closely, with resolution of this fever. Will monitor his clinical course closely. MMODL / IJN: [id number] /
[2020-06-29 17:34] LABS: Glucose,Whole Blood 160 mg/dL (75-99)
[2020-06-29] MEDS ORDERED: VANCOMYCIN TROUGH DUE 1 EACH MISC MISCELLANE ONE (19:00)
[2020-06-29 23:49] LABS: Glucose,Whole Blood 147 mg/dL (75-99)
[2020-06-30] MEDS: INSULIN ASPART (NovoLOG) 100 UNIT/ML VIAL SQ SCH ×4 (00:13→18:28)
[2020-06-30] MEDS: CEFEPIME 2 GM in SODIUM CHLORIDE 0.9% 100 ML IVPB SCH ×3 (00:14→16:59)
[2020-06-30] MEDS: ARTIFICIAL TEARS-HYPROMELLOSE DROPS 15 ML BTL BOTH EYES SCH ×6 (00:14→20:20)
[2020-06-30] MEDS: DEXTROSE 5% IN WATER 1,000 ML IV SCH ×3 (00:32→22:53)
[2020-06-30] MEDS: CISATRACURIUM 200 MG in SODIUM CHLORIDE 0.9% 180 ML IV SCH ×5 (00:38→19:09)
[2020-06-30] MEDS: fentaNYL (PF). 1,000 MCG in SODIUM CHLORIDE 0.9% 80 ML IV SCH ×8 (02:31→23:31)
[2020-06-30 04:56] LABS: ABG Base Excess 12.2 mmol/L; ABG HCO3 38 mmol/L (21-25); ABG Oxygen Saturation 93.8 % (94-97); ABG PH 7.32 (7.35-7.45); ABG PO2 72 mmHg (83-108); ABG TCO2 41 mmol/L (19-24)
[2020-06-30 05:14] LABS: Basophils % (A) 0 %; Eosinophils # (A) 0.1 k/uL (0-0.7); Eosinophils % (A) 1 %; HCT 29.7 % (39.0-53.0); HGB 9.5 gm/dL (13.0-17.5); Hypochromasia Slight; Lymphocytes # (A) 0.7 k/uL (1.0-4.8); Lymphocytes % (A) 8 %; MCH 30.8 pg (25.0-35.0); MCHC 32.1 g/dL (31.0-37.0); MCV 96.1 fL (80.0-100.0); Mean Platelet Volume 11.6; Monocytes # (A) 0.2 k/uL (0-1.0); Monocytes % (A) 3 %; Neutrophils # (A) 8.2 k/uL (1.3-7.7); Neutrophils % (A) 88 %; Platelet Count 152 k/uL (150-450); RBC 3.09 m/uL (4.30-5.90); RDW 15.1 % (11.5-15.5); WBC 9.3 k/uL (3.8-10.6)
[2020-06-30 05:28] LABS: Calcium 7.6 mg/dL (8.4-10.2); Potassium 4.5 mmol/L (3.5-5.1)
[2020-06-30 06:07] LABS: ABG PCO2 75 mmHg (35-45); Allen Test Performed? no
[2020-06-30 06:35] LABS: Glucose,Whole Blood 138 mg/dL (75-99)
--- NOTE | 2020-06-30 07:28 | XR ---
EXAMINATION TYPE: XR chest 1V portable DATE OF EXAM: 06/30/2020 COMPARISON: 06/29/2020 HISTORY: Pneumothorax TECHNIQUE: Single frontal view of the chest is obtained. FINDINGS: Diffuse bilateral airspace disease. Tracheostomy tube, bilateral chest tubes, and central line stable. No sizable pneumothorax on today's exam. Subcutaneous emphysema improved. Small bilatera l pleural effusions. IMPRESSION: 1. Resolution of right-sided pneumothorax. 2. Diffuse bilateral airspace disease.
[2020-06-30] MEDS: PANTOPRAZOLE 40 MG/10 ML VIAL IVP SCH (08:17)
[2020-06-30] MEDS: CHLORHEXIDINE GLUCONATE 15 ML CUP MUCOUS MEM SCH ×2 (08:18→20:21)
[2020-06-30] MEDS: ENOXAPARIN 40 MG/0.4 ML SYRINGE SQ SCH (08:18)
[2020-06-30] MEDS: DEXAMETHASONE SOD PHOSPHATE 10 MG/ML 1 ML VIAL IV SCH (08:18)
--- NOTE | 2020-06-30 08:32 | P.PN ---
Subjective Progress Note Date: 06/30/20 Principal diagnosis: Acute COVID-19 pneumonia, pneumomediastinum, extensive subcutaneous emphysema, acute hypoxic respiratory failure, elevated inflammatory markers secondary to Co vid-19, leukocytosis, thrombocytopenia, hypotension post intubation, respiratory acidosis POD #10 placement of bilateral chest tubes by Dr. Dominique. POD #2 placement of second right pleural chest tube by Dr. Henry. POD #1 tracheostomy and peg tube placement by Dr. Apodaca. The patient is currently laying in bed in the intensive care unit, underwent a tracheostomy and PEG tube placement yesterday performed by Dr. Ann from general surgery. Tracheostomy tube remains intact and midline. Remains with mechanical ventilator support, current mechanical ventilator settings are assist control 34, TV 400, FiO2 70% and PEEP of 18. Oxygen saturation on current mechanical ventilator settings are 89%. He remains with one left pleural chest tube and 2 right pleural chest tubes. Continuous air leak to one of the right pleural chest tubes. Draining thin scant serosanguineous drainage. Chest x-ray this morning shows resolution of the right-sided pneumothorax. Sputum culture was positive for MSSA, Moraxella and is currently on cefepime and vancomycin for antibiotic coverage. Remains sedated and paralyzed with fentanyl drip, propofol drip and Nimbex drip. Left subclavian triple-lumen remained intact and functioning. Objective - Vital Signs Vital signs: Vital Signs Temp 98.0 F 06/30/20 04:00 Pulse 111 H 06/30/20 07:00 Resp 35 H 06/30/20 07:00 BP 110/72 06/29/20 02:00 Pulse Ox 90 L 06/30/20 07:00 Intake & Output 06/29/20 06/30/20 06/30/20 18:59 06:59 18:59 Intake Total 6927.239 7384.641 196.488 Output Total 1235 1255 170 Balance 530.675 8117.641 26.488 Weight 75.5 kg Intake: IV 1272 1622 106 Cefepime 2 gm In Sodium 100 Chloride 0.9% 100 ml @ 25 mls/hr IVPB Q8HR [facility] Rx# :[id number] Dextrose 5% in Water 1, 1200 1200 100 000 ml @ 100 mls/hr IV . Q10H [facility] Rx#:[id number] Vancomycin 250 pressure bag 72 72 6 Intake, IV Titration 699.200 948.641 90.488 Amount Cisatracurium 200 mg In 219.996 347.599 Sodium Chloride 0.9% 180 ml @ 1 MCG/KG/MIN 3.81 mls/hr IV .Q24H [facility] Rx#: [id number] fentaNYL (PF). 1,000 mcg 252.731 315.477 90.488 In Sodium Chloride 0.9% 80 ml @ Per Protocol IV . Q0M [facility] Rx#:[id number] propofoL 1,000 mg In 226.473 285.565 Empty Bag 1 bag @ Titrate IV .Q0M [facility] Rx#: [id number] Output: Chest Tube Drainage 350 230 70 Chest Tube Left 70 10 10 Chest Tube Right 130 120 30 Chest Tube Right Upper 150 100 30 Urine 885 1025 100 Other: Voiding Method Indwelling Catheter Indwelling Catheter ABP, PAP, CO, CI - Last Documented Arterial Blood Pressure 111/59 - Exam CONSTITUTIONAL: Remains sedated and paralyzed , tracheostomy is midline and intact with mechanical ventilation support. EYES: Subcutaneous emphysema resolved over both eyes. ENT: Moist mucous membranes without oral lesions present. NECK: No masses, no bruits, trachea midline, #8 Bivona tracheostomy midline and intact. RESPIRATORY: Lungs sounds diminished and coarse to auscultation bilaterally. Currently on mechanical ventilation, assist control mode, FiO2 70%, PEEP 18, tidal volume 400, respiratory rate 34. Subcutaneous emphysema present to upper chest, neck. CARDIOVASCULAR: S1, S2 present. Regular rate and rhythm, sinus tach on te lemetry with heart rate 113 BPM. Palpable peripheral pulses bilaterally. Bilateral SCDs present. GASTROINTESTINAL: Abdomen soft, nondistended without masses or organomegaly noted. Active bowel sounds present 4 quadrants. PEG tube present, clamped. GENITOURINARY: Indwelling catheter present draining clear, yellow urine. Urine output 30-60mL/hr. INTEGUMENTARY: Skin is warm and dry. NEUROLOGIC: Unable to assess as patient is currently receiving IV paralytic. Train of 4 per nursing. INVASIVE LINES/TUBES: Left subclavian triple lumen central line present. Right pleural chest tubes x 2 and left pleural chest tube present, continuous air leak noted in second right chest tube, no air leak present in left chest tube, minimal drainage. - Labs CBC & Chem 7: 06/30/20 04:47 06/30/20 04:47 Labs: Abnormal Lab Results - Last 24 Hours (Table) 06/29/20 06/29/20 06/29/20 Range/Units 12:01 17:32 23:48 RBC (4.30-5.90) m/uL Hgb (13.0-17.5) gm/dL Hct (39.0-53.0) % Neutrophils # (1.3-7.7) k/uL Lymphocytes # (1.0-4.8) k/uL ABG pH (7.35-7.45) ABG pCO2 (35-45) mmHg ABG pO2 (83-108) mmHg ABG HCO3 (21-25) mmol/L ABG Total CO2 (19-24) mmol/L ABG O2 Saturation (94-97) % Sodium (137-145) mmol/L Chloride (98-107) mmol/L Carbon Dioxide (22-30) mmol/L BUN (9-20) mg/dL Creatinine (0.66-1.25) mg/dL Glucose (74-99) mg/dL POC Glucose (mg/dL) 127 H 160 H 147 H (75-99) mg/dL Calcium (8.4-10.2) mg/dL 06/30/20 06/30/20 06/30/20 Range/Units 04:47 04:47 04:53 RBC 3.09 L (4.30-5.90) m/uL Hgb 9.5 L (13.0-17.5) gm/dL Hct 29.7 L (39.0-53.0) % Neutrophils # 8.2 H (1.3-7.7) k/uL Lymphocytes # 0.7 L (1.0-4.8) k/uL ABG pH 7.32 L (7.35-7.45) ABG pCO2 75 H* (35-45) mmHg ABG pO2 72 L (83-108) mmHg ABG HCO3 38 H (21-25) mmol/L ABG Total CO2 41 H (19-24) mmol/L ABG O2 Saturation 93.8 L (94-97) % Sodium 149 H (137-145) mmol/L Chloride 111 H (98-107) mmol/L Carbon Dioxide 38 H (22-30) mmol/L BUN 94 H (9-20) mg/dL Creatinine 1.97 H (0.66-1.25) mg/dL Glucose 114 H (74-99) mg/dL POC Glucose (mg/dL) (75-99) mg/dL Calcium 7.6 L (8.4-10.2) mg/dL 06/30/20 Range/Units 06:33 RBC (4.30-5.90) m/uL Hgb (13.0-17.5) gm/dL Hct (39.0-53.0) % Neutrophils # (1.3-7.7) k/uL Lymphocytes # (1.0-4.8) k/uL ABG pH (7.35-7.45) ABG pCO2 (35-45) mmHg ABG pO2 (83-108) mmHg ABG HCO3 (21-25) mmol/L ABG Total CO2 (19-24) mmol/L ABG O2 Saturation (94-97) % Sodium (137-145) mmol/L Chloride (98-107) mmol/L Carbon Dioxide (22-30) mmol/L BUN (9-20) mg/dL Creatinine (0.66-1.25) mg/dL Glucose (74-99) mg/dL POC Glucose (mg/dL) 138 H (75-99) mg/dL Calcium (8.4-10.2) mg/dL Microbiology - Last 24 Hours (Table) 06/27/20 22:24 Blood Culture - Preliminary Blood No Growth after 48 hours 06/27/20 18:31 Blood Culture - Preliminary Blood No Growth after 48 hours 06/28/20 00:40 Gram Stain - Preliminary Sputum Sputum Culture - Preliminary Presumptive Staph aureus Assessment and Plan Assessment: 1. Acute COVID-19 pneumonia 2. Pneumomediastinum, extensive subcutaneous emphysema, status post placement of right and left pleural chest tubes by pulmonology, S/P placement of 14g angiocath to left neck 3. Acute hypoxic respiratory failure, remains on mechanical ventilation, status post tracheostomy placement 4. Elevated inflammatory markers secondary to Covid 5. Leukocytosis, febrile, sputum culture from 06/21/20 growing MSSA and morexella 6. Thrombocytopenia, resolved 6. Hypotension post intubation, currently normotensive on no pressors 7. Respiratory acidosis Plan: 1. Continue chest tubes to continuous low wall suction, monitor for resolution of subcutaneous emphysema, and airleak. No plans to removal of chest tubes at this time. 2. Mechanical ventilation, sedation, paralytic, antibiotics, covid managment per pulmonary/critical care medicine recommendations. 3. No thoracic surgery is warranted at this time. 4. GI/DVT prophylaxis. 5. Will continue to monitor daily chest x-rays. 6. Patient remains critically ill with poor prognosis, more recommendations to follow based on patient's clinical course. Time with Patient: Greater than 30
[2020-06-30] MEDS: methylPREDNISolone SOD SUCCI 125 MG/2 ML VIAL IV SCH ×3 (08:40→18:28)
--- NOTE | 2020-06-30 11:24 | P.PN ---
Subjective Progress Note Date: 06/30/20 Principal diagnosis: COVID 19 pneumonia Patient was reevaluated today on 06/23/2020, remains intubated and mechanically ventilated. Remains in the ICU, sedated and paralyzed. He is on assist control rate of 34, tidal volume is 400 FiO2 is 65 and PEEP is 20. ABG showed a pO2 of 77 pCO2 of 86 pH of 7.37. Patient remains on propofol at 75, fentanyl S3, pleasant Pleurx at 8 mg per hour, Nimbex at 2. Plan to give the patient a trial of Nimbex holiday today if possible. Remains on Nepro 17/17. Chest x-ray is basically the same, continues to show bilateral patchy infiltrates and subcutaneous emphysema. Patient is hemodynamically stable, not requiring any pressors, however he is a bit tachycardic rate is 120. Both sided chest tubes are about the same, and no leaks noted. Basic metabolic profile is normal, bicarb is 45. Patient remains on bicarb drip. D-dimer is 4.66. WBC count is 17.6 hemoglobin is 12.9. LDH remains high at 2747, C-reactive protein is 7 and CPK is 178. Patient was reevaluated today on 06/24/20, remains in the ICU, intubated and mechanically ventilated, sedated and paralyzed. He is on assist control rate of 34 tidal volume is 400 FiO2 of 65% and PEEP remains at 20. Peak airway pressure is about 39 and plateau pressure is 35. ABG showed a pO2 of 75 pCO2 83 pH of 7.39. Hence I decreased the FiO2 down to 60% kept him on the same PEEP/20. Patient remains on propofol at 75 Nimbex at 2 fentanyl S3, proximal at 5 mg per hour and he is also on a bicarb drip which I have discontinued today considering his ABG is showing metabolic compensation significant to his respiratory acidosis. Chest x-ray continues to show bilateral subcutaneous emphysema, improved, and bilateral patchy infiltrates I believe a bit better. Chest tubes remain in place, minimal air leak noted in the right-sided chest tube. No air leak noted in the left sided chest tube. Patient remains on enteral feeding, he is receiving Nepro 17/17. WBC count today is 21.7. D-dimer is 3.96. Electrolytes are normal bicarb is 48 BUN is 48 creatinine 0.60. LDH remains high at 2733 however it was as high as 10,002 days ago. C-reactive protein is down to 4.7. Reevaluated today on 06/25/2020, patient remains intubated and mechanically ventilated. He is on assist control rate of 34 tidal volume is 400 FiO2 60% PEEP remains at 20. His ABG today showed a pO2 of 61 pH of 7.38 and pCO2 of 87. Patient continues to have 2 chest tubes for his barotrauma, no air leak noted in the left sided chest tube, but intermittently noted in the right sided chest tube. Patient remains on D5W with bicarbonate 50 ML per hour propofol at 75 clevidipine 2 mg/h Nimbex at 2 fentanyl 3 mcg/kg/h. Chest x-ray continues to show bilateral infiltrates consistent with COVID-19 pneumonia, possibly a small right-sided apical pneumothorax is noted on the chest x-ray today. Left lung is fully expanded. Continues to have a pneumomediastinum and he continues to have subcutaneous emphysema in the neck region especially in the left side. Hence went ahead and placed a small tiny Angiocath, 14-gauge Angiocath to relieve some of the subcutaneous emphysema in the supraclavicular fat pad area WBC count is 16.4 hemoglobin is 12 sodium remains high at 145. Bicarb remains at [address] the patient back on bicarb mostly because of his hyperkalemia and wanted to keep his acidosis under control. Although it is mostly a respiratory type of acidosis alkaline phosphatase is 214, AST is 87. LDH is 2310. C-reactive protein is 4.1, Patient was reevaluated today on 06/26/2020, remains in the ICU, intubated and mechanically ventilated. Agent is on assist control rate of 34 tidal volume is 400 FiO2 is 60% and I cut it down to 55% PEEP was 20 and I cut it down to 18. ABG this morning showed a pO2 of 66 pCO2 of 88 pH of 7.37. Patient remains on Nepro . Patient has bilateral chest tubes, the left-sided chest tube is not showing any leak, however the right-sided chest tube has ongoing intermittent leak. Patient remains on propofol at 75 fentanyl S3 clevidipine 3 mg/h, and Nimbex at 30 mcg/kg/m. Patient is not requiring any pressors. Continues to have some subcu emphysema, but significantly improved compared to the last few days. Chest x-ray is showing minimal improvement. Continues to have some subcu emphysema. And pneumomediastinum. He got his 17 hemoglobin 11.6. Sodium is 146 potassium 5.3, renal profile is normal with BUN of 48 creatinine 0.64. LDH is coming down to 2490, and C-reactive protein is 6. overall I believe there is some improved but the patient remains quite ill, and condition remains very critical. Prognosis remains guarded. Progress note dated 06/27/2020. The patient was admitted to the hospital on June 13. His diagnosis was that of coronavirus infection and pneumonia. The patient was intubated on June 20. He remains on the ventilator, on the volume assist control mode, rate 34, tidal volume 400, FiO2 55%, PEEP 18. Arterial blood gases show pO2 62, PaCO2 87, and a pH is 7.36. The patient remains on Cleveprex at 3 mg an hour, Nimbex at 3 mcg/kg/m, fentanyl at 3 mcg/kg/h, propofol at 75 mcg/kg/m, and tube feedings with Nepro at 28 mL an hour, which is goal. The patient will benefit from a tracheostomy and PEG tube placement. In addition, a new art line will be placed. The patient does have bilateral chest tubes secondary to bilateral pneumothoraces. White count 13.5, hemoglobin 11.9, hematocrit 38.3, and platelet count 148,000. D-dimer is 4.69. Blood gases have been noted. Sodium 150, potassium 5.2, chlorides 101, CO2 52, BUN 52, creatinine 0.76. The patient's sodium bicarbonate IV/drip was discontinued. LDH is 2347 C-reactive protein 8.8. Progress note dated 06/28/2020. This patient was admitted to the hospital on June 13. His initial diagnosis was pneumonia secondary to coronavirus infection, with hypoxemia. The patient was intubated on June 20. Remains on the ventilator. He is seen today again in room 253. Current vent settings included a volume assist control mode rate 34, tidal volume 400, FiO2 55%, and PEEP of 18. Lungs gases show a PaO2 of 62, pCO2 80, and pH is 7.39. The patient is currently on Nimbex at 4 mcg/kg/m, fentanyl at 3 mcg/kg/h, propofol at 50 mcg/kg/m, and tube feedings with Nepro at 28 mL an hour, which is goal. The patient is not receiving any IV fluids. The patient does have bilateral chest tubes. We did ask surgery to consider doing a tracheostomy and PEG tube placement. We going to give the patient D5W at 100 mL an hour, for a sodium of 151. White count 17, hemoglobin 10.8, hematocrit 33.8, platelet count 144,000. D-dimer 3.04. Sodium 151, potassium 4.5, chlorides 105, CO2 46, BUN 66, creatinine 1.31. Sputum from June 21, showed evidence of Moraxella catarrhalis, and oxacillin sensitive staph aureus. Progress note dated 06/29/2020. 55-year-old male, admitted to the hospital on June 13. His diagnosis was coronavirus pneumonia, and hypoxemic respiratory failure. The patient was intubated on June 20. He remains on the ventilator. He is again seen today in room 253. Last night, I did come back to the hospital for a left internal jugular triple-lumen catheter insertion, and, because of worsening pneumothorax on the right side, I inserted the second chest tube in the right pleural space. The follow-up chest x-ray showed significant improvement in the right-sided pneumothorax. The patient remains on the mechanical ventilator, volume assist control mode, rate 34, tidal volume 400, FiO2 70%, PEEP of 18. Blood gases show pO2 of 67, pCO2 76, and a pH is 7.36. Currently, the patient remains on Nimbex, at 5 mcg/kg/m, propofol at 50 mcg/kg/m, and fentanyl at 3 mcg/kg/h. The patient's also getting D5W at 100 mL an hour. Tube feeds on hold, or anticipated tracheostomy tube placement and PEG tube placement today. The patient has 2 chest tubes on the right, one on the left. He has a significant leak from the new right-sided chest tube. He is receiving Nepro at 28 mL an hour, which are currently on hold for the anticipated surgical procedure. White count 12.7, hemoglobin 10.3, hematocrit 31.9, platelet count 139,000. Sodium 150, potassium 4.6, chlorides 107, CO2 42, anion gap 1, BUN 83, creatinine 1.27. Chest x-ray shows patchy airspace disease bilaterally, and improved right-sided pneumothorax, with residual small right apical pneumothorax, less than 10%. Progress note dated 06/30/2020. 55-year-old male, admitted to the hospital on June 13. His diagnosis was that of coronavirus pneumonia, and hypoxemic respiratory failure. The patient was intubated on June 20. He remains on the ventilator. The patient is on the volume assist control mode, rate 34, tidal volume of 400, FiO2 70%, and PEEP of 18. Blood gases show pO2 of 72, pCO2 75, and pH 7.32. Currently, the patient is on Nimbex at 8 g kilogram per minute, fentanyl at 5 mcg/kg/h, propofol 60 mcg/kg/m, D5W at 100 mL an hour, and Nepro, at 28 mL an hour. The patient underwent tracheostomy and PEG tube placement on June 29. The patient has 2 chest tubes on the right, one chest tube on the left. There is a large leak on one of the right-sided chest tubes. We are going to DC vancomycin, DC Decadron, and start Solu-Medrol. White count 9.3, hemoglobin 9.5, hematocrit 29.7, and platelet count 152,000. Sodium 149, potassium 4.5, chlorides 111, CO2 38, BUN 94, creatinine 1.97. Microbiology is positive for staph, and Moraxella, on June 21 the sputum, and again, staph, on June 28. The patient remains on cefepime. Chest x-ray shows resolution of right-sided pneumothorax, and diffuse bilateral airspace disease. Objective - Vital Signs Vital signs: Vital Signs Temp 99.0 F 06/30/20 08:00 Pulse 108 H 06/30/20 10:00 Resp 36 H 06/30/20 10:00 BP 103/60 06/30/20 10:00 Pulse Ox 89 L 06/30/20 10:00 Intake & Output 06/29/20 06/30/20 06/30/20 18:59 06:59 18:59 Intake Total 6158.111 6208.641 828.471 Output Total 1235 1255 260 Balance 741.057 8309.641 568.471 Weight 75.5 kg Intake: IV 1272 1622 418 Cefepime 2 gm In Sodium 100 100 Chloride 0.9% 100 ml @ 25 mls/hr IVPB Q8HR [facility] Rx# :[id number] Dextrose 5% in Water 1, 1200 1200 300 000 ml @ 100 mls/hr IV . Q10H [facility] Rx#:[id number] Vancomycin 250 pressure bag 72 72 18 Intake, IV Titration 699.200 948.641 410.471 Amount Cisatracurium 200 mg In 219.996 347.599 151.892 Sodium Chloride 0.9% 180 ml @ 1 MCG/KG/MIN 3.81 mls/hr IV .Q24H [facility] Rx#: [id number] fentaNYL (PF). 1,000 mcg 252.731 315.477 172.509 In Sodium Chloride 0.9% 80 ml @ Per Protocol IV . Q0M [facility] Rx#:[id number] propofoL 1,000 mg In 226.473 285.565 86.07 Empty Bag 1 bag @ Titrate IV .Q0M [facility] Rx#: [id number] Output: Chest Tube Drainage 350 230 70 Chest Tube Left 70 10 10 Chest Tube Right 130 120 30 Chest Tube Right Upper 150 100 30 Urine 885 1025 190 Other: Voiding Method Indwelling Catheter Indwelling Catheter Indwelling Catheter ABP, PAP, CO, CI - Last Documented Arterial Blood Pressure 102/56 - Exam Currently, the patient is sedated and paralyzed. There is a midline tracheostomy tube noted. Saturation is 90%. HEENT examination is grossly unremarkable. Neck supple. Full range of motion. No adenopathy thyromegaly or neck vein distention. Some subcutaneous emphysema noted in the neck area. Cardiovascular examination reveals regular rhythm rate. S1-S2 normal. No S3 or S4. No discernible murmur noted. Heart rate 108 bpm. Lungs reveal coarse bilateral rhonchi. Bilateral crackles are also noted. There is also subcutaneous emphysema noted in the left chest area. There are bilateral chest tubes, 2 on the right, one on the left. The new right-sided chest tube, that I placed yesterday, has a significant leak. Abdomen soft bowel sounds are heard. No masses or tenderness. PEG tube is noted. Extremities are intact. No cyanosis clubbing or edema. Skin is without rash or lesion. Neurologic examination could not be assessed as the patient's currently sedated and paralyzed. - Labs CBC & Chem 7: 06/30/20 04:47 06/30/20 04:47 Labs: Abnormal Lab Results - Last 24 Hours (Table) 06/29/20 06/29/20 06/29/20 Range/Units 12:01 17:32 23:48 RBC (4.30-5.90) m/uL Hgb (13.0-17.5) gm/dL Hct (39.0-53.0) % Neutrophils # (1.3-7.7) k/uL Lymphocytes # (1.0-4.8) k/uL ABG pH (7.35-7.45) ABG pCO2 (35-45) mmHg ABG pO2 (83-108) mmHg ABG HCO3 (21-25) mmol/L ABG Total CO2 (19-24) mmol/L ABG O2 Saturation (94-97) % Sodium (137-145) mmol/L Chloride (98-107) mmol/L Carbon Dioxide (22-30) mmol/L BUN (9-20) mg/dL Creatinine (0.66-1.25) mg/dL Glucose (74-99) mg/dL POC Glucose (mg/dL) 127 H 160 H 147 H (75-99) mg/dL Calcium (8.4-10.2) mg/dL 06/30/20 06/30/20 06/30/20 Range/Units 04:47 04:47 04:53 RBC 3.09 L (4.30-5.90) m/uL Hgb 9.5 L (13.0-17.5) gm/dL Hct 29.7 L (39.0-53.0) % Neutrophils # 8.2 H (1.3-7.7) k/uL Lymphocytes # 0.7 L (1.0-4.8) k/uL ABG pH 7.32 L (7.35-7.45) ABG pCO2 75 H* (35-45) mmHg ABG pO2 72 L (83-108) mmHg ABG HCO3 38 H (21-25) mmol/L ABG Total CO2 41 H (19-24) mmol/L ABG O2 Saturation 93.8 L (94-97) % Sodium 149 H (137-145) mmol/L Chloride 111 H (98-107) mmol/L Carbon Dioxide 38 H (22-30) mmol/L BUN 94 H (9-20) mg/dL Creatinine 1.97 H (0.66-1.25) mg/dL Glucose 114 H (74-99) mg/dL POC Glucose (mg/dL) (75-99) mg/dL Calcium 7.6 L (8.4-10.2) mg/dL 06/30/20 Range/Units 06:33 RBC (4.30-5.90) m/uL Hgb (13.0-17.5) gm/dL Hct (39.0-53.0) % Neutrophils # (1.3-7.7) k/uL Lymphocytes # (1.0-4.8) k/uL ABG pH (7.35-7.45) ABG pCO2 (35-45) mmHg ABG pO2 (83-108) mmHg ABG HCO3 (21-25) mmol/L ABG Total CO2 (19-24) mmol/L ABG O2 Saturation (94-97) % Sodium (137-145) mmol/L Chloride (98-107) mmol/L Carbon Dioxide (22-30) mmol/L BUN (9-20) mg/dL Creatinine (0.66-1.25) mg/dL Glucose (74-99) mg/dL POC Glucose (mg/dL) 138 H (75-99) mg/dL Calcium (8.4-10.2) mg/dL Microbiology - Last 24 Hours (Table) 06/28/20 00:40 Gram Stain - Final Sputum Sputum Culture - Final Staphylococcus aureus 06/27/20 22:24 Blood Culture - Preliminary Blood No Growth after 48 hours 06/27/20 18:31 Blood Culture - Preliminary Blood No Growth after 48 hours Assessment and Plan Assessment: Acute hypoxemic respiratory failure secondary to COVID 19 pneumonia/pneumonitis. Status post tracheostomy and PEG tube placement, June 29, for failure to wean f rom mechanical ventilation. Acute barotrauma from mechanical ventilation, and relatively high PEEP levels, requiring bilateral chest tubes, 2 on the right, and 1 on the left. Oxacillin sensitive staph aureus and Moraxella catarrhalis tracheobronchitis/bronchopneumonia. Hypernatremia. Elevated inflammatory markers. Hypotension, resolved. Hypertension, Cleveprex weaned off. Thrombocytopenia, secondary to sepsis. Plan: Plan dated 06/27/2020. The bicarbonate drip will be discontinued given the fact that the patient's sodium is quite high. No ventilator changes today. The patient will need a tracheostomy and PEG tube placement. Surgery will be consulted. In addition, a new arterial line will be placed today. Additional recommendations and suggestions are forthcoming. Prognosis is very guarded. We'll continue to follow make recommendations where appropriate. Plan dated 06/28/2020. The nurse did speak to the family about tracheostomy and PEG tube placement. Apparently they wanted to wait 1 additional day. Surgery was consulted. Yesterday, we replaced a arterial line that had gone bad. Overall prognosis remains guarded. We'll continue to follow. Labs, x-rays, medications are all reviewed. The patient remains on propofol, fentanyl, and Nimbex. He is getting nutrition with Nepro at goal. We will continue to follow make recommendations where needed. Also, because of the patient's hypernatremia, the patient be given D5W at 100 mL an hour. Plan dated 06/29/2020. I placed another right-sided chest tube last night. In addition, I did insert a left internal jugular triple-lumen catheter. I was not convinced that the PICC line in the right arm was functioning normally. The patient remains on Nimbex, propofol, and fentanyl. Hopefully, the patient will have a tracheostomy tube and PEG tube placed today. Tube feeds are on hold. The new right-sided chest tube has a significant leak and volumes of being lost from the chest tube. Additional recommendations and suggestions are forthcoming. We will continue to follow. Prognosis is guarded. Plan dated 06/30/2020. We will discontinue the vancomycin. The Staphylococcus noted on the most recent sputum, is oxacillin sensitive. The patient is ready on cefepime. We will discontinue Decadron, in favor of Solu-Medrol. The patient remains on Nimbex, fentanyl, and propofol. 2 feedings will be restarted today. The patient had a tracheostomy tube placed and PEG tube placed yesterday, June 29. Overall prognosis remains guarded. The patient has 2 right-sided chest tubes, and 1 left-sided chest tube. There is a large leak from one of the chest tubes on the right. Prognosis is guarded. We will continue to follow this patient and make recommendations where appropriate. Time with Patient: Greater than 30
[2020-06-30 11:58] LABS: Glucose,Whole Blood 141 mg/dL (75-99)
[2020-06-30] MEDS: ASCORBIC ACID 500 MG TAB PO SCH (12:06)
[2020-06-30] MEDS: LACTULOSE 20 GM/30 ML CUP PO SCH ×2 (12:06→20:21)
[2020-06-30] MEDS: ZINC SULFATE 220 MG CAP PO SCH (12:06)
[2020-06-30] MEDS: CHOLECALCIFEROL 25 MCG (1000 IU) TABLET PO SCH (12:06)
--- NOTE | 2020-06-30 14:44 | P.PN ---
Subjective Progress Note Date: 06/30/20 CHIEF COMPLAINT: COVID-19 pneumonia HISTORY OF PRESENT ILLNESS: Patient is in the ICU intubated and sedated. Patient has bilateral chest tubes. Patient is status post tracheostomy and PEG tube placement. 2 feedings are scheduled to be started today. White count down to 9.3. Afebrile. PHYSICAL EXAM: VITAL SIGNS: Reviewed. GENERAL: Well-developed in no acute distress. HEENT: Head is atraumatic, normocephalic. Tracheostomy site clean dry and intact ABDOMEN: Soft. Nondistended. Nontender. PEG tube site clean dry and intact NEUROLOGIC: Intubated and sedated ASSESSMENT: 1. Acute hypoxic respiratory failure secondary to COVID-19 pneumonia and required prolonged mechanical ventilation 2. Severe protein calorie malnutrition PLAN: -Tube feedings to be started today -Consult placed with dietitian to start tube feedings -Continue ICU management -Continue supportive care Physician [employer] Developer note has been reviewed by physician. Signing provider agrees with the documented findings, assessment, and plan of care. Objective - Vital Signs Vital signs: Vital Signs Temp 98.2 F 06/30/20 12:00 Pulse 103 H 06/30/20 14:00 Resp 37 H 06/30/20 14:00 BP 103/60 06/30/20 10:00 Pulse Ox 91 L 06/30/20 14:00 Intake & Output 06/29/20 06/30/20 06/30/20 18:59 06:59 18:59 Intake Total 6472.467 3044.641 1198.714 Output Total 1235 1255 535 Balance 190.236 4114.641 663.714 Weight 75.5 kg Intake: IV 1272 1622 623 Cefepime 2 gm In Sodium 100 75 Chloride 0.9% 100 ml @ 25 mls/hr IVPB Q8HR [facility] Rx# :[id number] Dextrose 5% in Water 1, 1200 1200 500 000 ml @ 100 mls/hr IV . Q10H [facility] Rx#:[id number] Vancomycin 250 pressure bag 72 72 48 Intake, IV Titration 699.200 948.641 575.714 Amount Cisatracurium 200 mg In 219.996 347.599 151.892 Sodium Chloride 0.9% 180 ml @ 1 MCG/KG/MIN 3.81 mls/hr IV .Q24H [facility] Rx#: [id number] fentaNYL (PF). 1,000 mcg 252.731 315.477 270.934 In Sodium Chloride 0.9% 80 ml @ Per Protocol IV . Q0M [facility] Rx#:[id number] propofoL 1,000 mg In 226.473 285.565 152.888 Empty Bag 1 bag @ Titrate IV .Q0M [facility] Rx#: [id number] Output: Chest Tube Drainage 350 230 175 Chest Tube Left 70 10 60 Chest Tube Right 130 120 35 Chest Tube Right Upper 150 100 80 Urine 885 1025 360 Other: Voiding Method Indwelling Catheter Indwelling Catheter Indwelling Catheter ABP, PAP, CO, CI - Last Documented Arterial Blood Pressure 114/65 - Labs CBC & Chem 7: 06/30/20 04:47 06/30/20 04:47 Labs: Abnormal Lab Results - Last 24 Hours (Table) 06/29/20 06/29/20 06/30/20 Range/Units 17:32 23:48 04:47 RBC (4.30-5.90) m/uL Hgb (13.0-17.5) gm/dL Hct (39.0-53.0) % Neutrophils # (1.3-7.7) k/uL Lymphocytes # (1.0-4.8) k/uL ABG pH (7.35-7.45) ABG pCO2 (35-45) mmHg ABG pO2 (83-108) mmHg ABG HCO3 (21-25) mmol/L ABG Total CO2 (19-24) mmol/L ABG O2 Saturation (94-97) % Sodium 149 H (137-145) mmol/L Chloride 111 H (98-107) mmol/L Carbon Dioxide 38 H (22-30) mmol/L BUN 94 H (9-20) mg/dL Creatinine 1.97 H (0.66-1.25) mg/dL Glucose 114 H (74-99) mg/dL POC Glucose (mg/dL) 160 H 147 H (75-99) mg/dL Calcium 7.6 L (8.4-10.2) mg/dL 06/30/20 06/30/20 06/30/20 Range/Units 04:47 04:53 06:33 RBC 3.09 L (4.30-5.90) m/uL Hgb 9.5 L (13.0-17.5) gm/dL Hct 29.7 L (39.0-53.0) % Neutrophils # 8.2 H (1.3-7.7) k/uL Lymphocytes # 0.7 L (1.0-4.8) k/uL ABG pH 7.32 L (7.35-7.45) ABG pCO2 75 H* (35-45) mmHg ABG pO2 72 L (83-108) mmHg ABG HCO3 38 H (21-25) mmol/L ABG Total CO2 41 H (19-24) mmol/L ABG O2 Saturation 93.8 L (94-97) % Sodium (137-145) mmol/L Chloride (98-107) mmol/L Carbon Dioxide (22-30) mmol/L BUN (9-20) mg/dL Creatinine (0.66-1.25) mg/dL Glucose (74-99) mg/dL POC Glucose (mg/dL) 138 H (75-99) mg/dL Calcium (8.4-10.2) mg/dL 06/30/20 Range/Units 11:56 RBC (4.30-5.90) m/uL Hgb (13.0-17.5) gm/dL Hct (39.0-53.0) % Neutrophils # (1.3-7.7) k/uL Lymphocytes # (1.0-4.8) k/uL ABG pH (7.35-7.45) ABG pCO2 (35-45) mmHg ABG pO2 (83-108) mmHg ABG HCO3 (21-25) mmol/L ABG Total CO2 (19-24) mmol/L ABG O2 Saturation (94-97) % Sodium (137-145) mmol/L Chloride (98-107) mmol/L Carbon Dioxide (22-30) mmol/L BUN (9-20) mg/dL Creatinine (0.66-1.25) mg/dL Glucose (74-99) mg/dL POC Glucose (mg/dL) 141 H (75-99) mg/dL Calcium (8.4-10.2) mg/dL Microbiology - Last 24 Hours (Table) 06/28/20 00:40 Gram Stain - Final Sputum Sputum Culture - Final Staphylococcus aureus 04/26/21 22:24 Blood Culture - Preliminary Blood No Growth after 48 hours 06/27/20 18:31 Blood Culture - Preliminary Blood No Growth after 48 hours
[2020-06-30] MEDS: CLEVIDIPINE BUTYRATE 25 MG in EMPTY BAG 1 BAG IV SCH (16:02)
--- NOTE | 2020-06-30 17:55 | PN ---
PROGRESS NOTE DATE OF SERVICE: 06/30/2020 REASON FOR FOLLOWUP: Pneumonia. INTERVAL HISTORY: The patient is afebrile. The patient is hemodynamically stable, not on any pressor support. No significant purulent secretions through the ET or diarrhea reported by the nursing staff. The patient's FiO2 is currently up to 70%, though stable over the last 24 hours. PHYSICAL EXAMINATION: Blood pressure 112/64 with a pulse of 99, temperature 98.2. He is 93% on 70% FiO2. General description is a middle-aged male intubated on the vent through the trach. RESPIRATORY SYSTEM: Unlabored breathing with decreased intensity of breath sounds. No wheeze. HEART: S1, S2. Regular rate and rhythm. ABDOMEN: Soft. No tenderness. LABS: Hemoglobin is 9.4, white count normalized to 9.3. BUN and creatinine are slightly elevated. Vancomycin trough was 19.9. Repeat sputum now showing MSSA. DIAGNOSTIC IMPRESSION AND PLAN: Patient with acute respiratory failure which is multifactorial in this patient who did have a component of pneumonia. Sputum has been persistent MSSA. The patient is covered with cefepime. The vancomycin has been discontinued by Pulmonary. Will monitor clinical course closely. Continue supportive care. Prognosis remains guarded. MMODL / IJN: [id number] /
[2020-06-30 18:17] LABS: Glucose,Whole Blood 188 mg/dL (75-99)
[2020-06-30 18:20] LABS: ABG Base Excess 8.5 mmol/L; ABG HCO3 35 mmol/L (21-25); ABG Oxygen Saturation 94.4 % (94-97); ABG PCO2 70 mmHg (35-45); ABG PO2 76 mmHg (83-108); ABG TCO2 37 mmol/L (19-24); Allen Test Performed? Yes
--- NOTE | 2020-06-30 18:42 | XR ---
EXAMINATION: XR chest 1V portable DATE AND TIME: 06/30/2020 6:21 PM CLINICAL INDICATION: PHH; Increased RR while paralyzed TECHNIQUE: AP portable COMPARISON: AP portable upright chest radiograph 06/30/2020 at 5:18 AM FINDINGS: Support lines and catheters: Two right chest tubes and one left chest tube redemonstrated. Left IJ ce ntral line tip superimposed over the distal SVC. Lungs: There is redemonstration of the marked bilateral airspace disease throughout the lower, mid an d upper lung zones bilaterally. Other: No abnormal gas collections are evident. IMPRESSION: Stable chest radiographic abnormalities; no evident new process.
[2020-06-30] MEDS ORDERED: VANCOMYCIN 1,500 MG in SODIUM CHLORIDE 0.9% 250 ML IVPB SCH (21:00)
[2020-06-30 23:46] LABS: Glucose,Whole Blood 198 mg/dL (75-99)
[2020-07-01] MEDS: CEFEPIME 2 GM in SODIUM CHLORIDE 0.9% 100 ML IVPB SCH ×4 (00:04→23:37)
[2020-07-01 00:34] LABS: Glucose,Whole Blood 195 mg/dL (75-99)
[2020-07-01] MEDS: INSULIN ASPART (NovoLOG) 100 UNIT/ML VIAL SQ SCH ×5 (00:43→23:46)
[2020-07-01] MEDS: methylPREDNISolone SOD SUCCI 125 MG/2 ML VIAL IV SCH ×5 (00:43→23:38)
[2020-07-01] MEDS: fentaNYL (PF). 1,000 MCG in SODIUM CHLORIDE 0.9% 80 ML IV SCH ×7 (02:19→21:31)
[2020-07-01] MEDS: CISATRACURIUM 200 MG in SODIUM CHLORIDE 0.9% 180 ML IV SCH ×3 (04:56)
[2020-07-01] MEDS: ARTIFICIAL TEARS-HYPROMELLOSE DROPS 15 ML BTL BOTH EYES SCH ×7 (04:58→23:46)
[2020-07-01 05:05] LABS: ABG Base Excess 5.2 mmol/L; ABG HCO3 32 mmol/L (21-25); ABG Oxygen Saturation 92.6 % (94-97); ABG PCO2 68 mmHg (35-45); ABG PH 7.28 (7.35-7.45); ABG PO2 71 mmHg (83-108); ABG TCO2 34 mmol/L (19-24)
[2020-07-01 05:42] LABS: Allen Test Performed? no
[2020-07-01 05:45] LABS: Basophils % (A) 0 %; Eosinophils % (A) 0 %; HCT 27.8 % (39.0-53.0); HGB 9.3 gm/dL (13.0-17.5); Hypochromasia Slight; Lymphocytes # (A) 0.4 k/uL (1.0-4.8); Lymphocytes % (A) 4 %; MCH 31.5 pg (25.0-35.0); MCHC 33.3 g/dL (31.0-37.0); MCV 94.6 fL (80.0-100.0); Mean Platelet Volume 11.1; Monocytes # (A) 0.3 k/uL (0-1.0); Monocytes % (A) 3 %; Neutrophils % (A) 92 %; Platelet Count 196 k/uL (150-450); RBC 2.94 m/uL (4.30-5.90); RDW 14.8 % (11.5-15.5); WBC 9.8 k/uL (3.8-10.6)
[2020-07-01 06:01] LABS: Calcium 7.6 mg/dL (8.4-10.2); Potassium 4.8 mmol/L (3.5-5.1)
[2020-07-01 06:10] LABS: Glucose,Whole Blood 212 mg/dL (75-99)
--- NOTE | 2020-07-01 07:38 | XR ---
EXAMINATION TYPE: XR chest 1V portable DATE OF EXAM: 07/01/2020 COMPARISON: 06/30/2020 HISTORY: SOB, Follow Up FINDINGS: Indwelling tubes and catheters are unchanged. Bilateral airspace infiltrates persist greatest at the right lung base. No sizable pneumothorax seen at this time. Stable appearance of the cardio-mediastinal structures at this time. Pleural effusion unchanged. IMPRESSION: 1. Bilateral airspace infiltrates persist greatest at the right lung base. No sizable pneumothorax s een at this time.. Clinical correlation and follow up until resolution is recommended.
[2020-07-01] MEDS: PANTOPRAZOLE 40 MG/10 ML VIAL IVP SCH (08:05)
[2020-07-01] MEDS: CHLORHEXIDINE GLUCONATE 15 ML CUP MUCOUS MEM SCH ×2 (08:05→20:29)
[2020-07-01] MEDS: ASCORBIC ACID 500 MG TAB PO SCH (08:05)
[2020-07-01] MEDS: ENOXAPARIN 40 MG/0.4 ML SYRINGE SQ SCH ×2 (08:05→20:29)
[2020-07-01] MEDS: ZINC SULFATE 220 MG CAP PO SCH (08:05)
[2020-07-01] MEDS: LACTULOSE 20 GM/30 ML CUP PO SCH ×2 (08:05→20:29)
[2020-07-01] MEDS: CHOLECALCIFEROL 25 MCG (1000 IU) TABLET PO SCH (08:05)
[2020-07-01] MEDS ORDERED: LACTATED RINGERS 1,000 ML IV SCH (08:15)
[2020-07-01] MEDS: DEXTROSE 5% IN WATER 1,000 ML IV SCH ×2 (08:58→15:40)
[2020-07-01] MEDS: ROCURONIUM 400 MG in SODIUM CHLORIDE 0.9% 100 ML IV SCH ×3 (10:10→19:49)
--- NOTE | 2020-07-01 10:24 | P.PN ---
Subjective Progress Note Date: 07/01/20 Principal diagnosis: COVID 19 pneumonia Patient was reevaluated today on 06/23/2020, remains intubated and mechanically ventilated. Remains in the ICU, sedated and paralyzed. He is on assist control rate of 34, tidal volume is 400 FiO2 is 65 and PEEP is 20. ABG showed a pO2 of 77 pCO2 of 86 pH of 7.37. Patient remains on propofol at 75, fentanyl S3, pleasant Pleurx at 8 mg per hour, Nimbex at 2. Plan to give the patient a trial of Nimbex holiday today if possible. Remains on Nepro 17/17. Chest x-ray is basically the same, continues to show bilateral patchy infiltrates and subcutaneous emphysema. Patient is hemodynamically stable, not requiring any pressors, however he is a bit tachycardic rate is 120. Both sided chest tubes are about the same, and no leaks noted. Basic metabolic profile is normal, bicarb is 45. Patient remains on bicarb drip. D-dimer is 4.66. WBC count is 17.6 hemoglobin is 12.9. LDH remains high at 2747, C-reactive protein is 7 and CPK is 178. Patient was reevaluated today on 06/24/20, remains in the ICU, intubated and mechanically ventilated, sedated and paralyzed. He is on assist control rate of 34 tidal volume is 400 FiO2 of 65% and PEEP remains at 20. Peak airway pressure is about 39 and plateau pressure is 35. ABG showed a pO2 of 75 pCO2 83 pH of 7.39. Hence I decreased the FiO2 down to 60% kept him on the same PEEP/20. Patient remains on propofol at 75 Nimbex at 2 fentanyl S3, proximal at 5 mg per hour and he is also on a bicarb drip which I have discontinued today considering his ABG is showing metabolic compensation significant to his respiratory acidosis. Chest x-ray continues to show bilateral subcutaneous emphysema, improved, and bilateral patchy infiltrates I believe a bit better. Chest tubes remain in place, minimal air leak noted in the right-sided chest tube. No air leak noted in the left sided chest tube. Patient remains on enteral feeding, he is receiving Nepro 17/17. WBC count today is 21.7. D-dimer is 3.96. Electrolytes are normal bicarb is 48 BUN is 48 creatinine 0.60. LDH remains high at 2733 however it was as high as 10,002 days ago. C-reactive protein is down to 4.7. Reevaluated today on 06/25/2020, patient remains intubated and mechanically ventilated. He is on assist control rate of 34 tidal volume is 400 FiO2 60% PEEP remains at 20. His ABG today showed a pO2 of 61 pH of 7.38 and pCO2 of 87. Patient continues to have 2 chest tubes for his barotrauma, no air leak noted in the left sided chest tube, but intermittently noted in the right sided chest tube. Patient remains on D5W with bicarbonate 50 ML per hour propofol at 75 clevidipine 2 mg/h Nimbex at 2 fentanyl 3 mcg/kg/h. Chest x-ray continues to show bilateral infiltrates consistent with COVID-19 pneumonia, possibly a small right-sided apical pneumothorax is noted on the chest x-ray today. Left lung is fully expanded. Continues to have a pneumomediastinum and he continues to have subcutaneous emphysema in the neck region especially in the left side. Hence went ahead and placed a small tiny Angiocath, 14-gauge Angiocath to relieve some of the subcutaneous emphysema in the supraclavicular fat pad area WBC count is 16.4 hemoglobin is 12 sodium remains high at 145. Bicarb remains at [address] the patient back on bicarb mostly because of his hyperkalemia and wanted to keep his acidosis under control. Although it is mostly a respiratory type of acidosis alkaline phosphatase is 214, AST is 87. LDH is 2310. C-reactive protein is 4.1, Patient was reevaluated today on 06/26/2020, remains in the ICU, intubated and mechanically ventilated. Agent is on assist control rate of 34 tidal volume is 400 FiO2 is 60% and I cut it down to 55% PEEP was 20 and I cut it down to 18. ABG this morning showed a pO2 of 66 pCO2 of 88 pH of 7.37. Patient remains on Nepro . Patient has bilateral chest tubes, the left-sided chest tube is not showing any leak, however the right-sided chest tube has ongoing intermittent leak. Patient remains on propofol at 75 fentanyl S3 clevidipine 3 mg/h, and Nimbex at 30 mcg/kg/m. Patient is not requiring any pressors. Continues to have some subcu emphysema, but significantly improved compared to the last few days. Chest x-ray is showing minimal improvement. Continues to have some subcu emphysema. And pneumomediastinum. He got his 17 hemoglobin 11.6. Sodium is 146 potassium 5.3, renal profile is normal with BUN of 48 creatinine 0.64. LDH is coming down to 2490, and C-reactive protein is 6. overall I believe there is some improved but the patient remains quite ill, and condition remains very critical. Prognosis remains guarded. Progress note dated 06/27/2020. The patient was admitted to the hospital on June 13. His diagnosis was that of coronavirus infection and pneumonia. The patient was intubated on June 20. He remains on the ventilator, on the volume assist control mode, rate 34, tidal volume 400, FiO2 55%, PEEP 18. Arterial blood gases show pO2 62, PaCO2 87, and a pH is 7.36. The patient remains on Cleveprex at 3 mg an hour, Nimbex at 3 mcg/kg/m, fentanyl at 3 mcg/kg/h, propofol at 75 mcg/kg/m, and tube feedings with Nepro at 28 mL an hour, which is goal. The patient will benefit from a tracheostomy and PEG tube placement. In addition, a new art line will be placed. The patient does have bilateral chest tubes secondary to bilateral pneumothoraces. White count 13.5, hemoglobin 11.9, hematocrit 38.3, and platelet count 148,000. D-dimer is 4.69. Blood gases have been noted. Sodium 150, potassium 5.2, chlorides 101, CO2 52, BUN 52, creatinine 0.76. The patient's sodium bicarbonate IV/drip was discontinued. LDH is 2347 C-reactive protein 8.8. Progress note dated 06/28/2020. This patient was admitted to the hospital on June 13. His initial diagnosis was pneumonia secondary to coronavirus infection, with hypoxemia. The patient was intubated on June 20. Remains on the ventilator. He is seen today again in room 253. Current vent settings included a volume assist control mode rate 34, tidal volume 400, FiO2 55%, and PEEP of 18. Lungs gases show a PaO2 of 62, pCO2 80, and pH is 7.39. The patient is currently on Nimbex at 4 mcg/kg/m, fentanyl at 3 mcg/kg/h, propofol at 50 mcg/kg/m, and tube feedings with Nepro at 28 mL an hour, which is goal. The patient is not receiving any IV fluids. The patient does have bilateral chest tubes. We did ask surgery to consider doing a tracheostomy and PEG tube placement. We going to give the patient D5W at 100 mL an hour, for a sodium of 151. White count 17, hemoglobin 10.8, hematocrit 33.8, platelet count 144,000. D-dimer 3.04. Sodium 151, potassium 4.5, chlorides 105, CO2 46, BUN 66, creatinine 1.31. Sputum from June 21, showed evidence of Moraxella catarrhalis, and oxacillin sensitive staph aureus. Progress note dated 06/29/2020. 55-year-old male, admitted to the hospital on June 13. His diagnosis was coronavirus pneumonia, and hypoxemic respiratory failure. The patient was intubated on June 20. He remains on the ventilator. He is again seen today in room 253. Last night, I did come back to the hospital for a left internal jugular triple-lumen catheter insertion, and, because of worsening pneumothorax on the right side, I inserted the second chest tube in the right pleural space. The follow-up chest x-ray showed significant improvement in the right-sided pneumothorax. The patient remains on the mechanical ventilator, volume assist control mode, rate 34, tidal volume 400, FiO2 70%, PEEP of 18. Blood gases show pO2 of 67, pCO2 76, and a pH is 7.36. Currently, the patient remains on Nimbex, at 5 mcg/kg/m, propofol at 50 mcg/kg/m, and fentanyl at 3 mcg/kg/h. The patient's also getting D5W at 100 mL an hour. Tube feeds on hold, or anticipated tracheostomy tube placement and PEG tube placement today. The patient has 2 chest tubes on the right, one on the left. He has a significant leak from the new right-sided chest tube. He is receiving Nepro at 28 mL an hour, which are currently on hold for the anticipated surgical procedure. White count 12.7, hemoglobin 10.3, hematocrit 31.9, platelet count 139,000. Sodium 150, potassium 4.6, chlorides 107, CO2 42, anion gap 1, BUN 83, creatinine 1.27. Chest x-ray shows patchy airspace disease bilaterally, and improved right-sided pneumothorax, with residual small right apical pneumothorax, less than 10%. Progress note dated 06/30/2020. 55-year-old male, admitted to the hospital on June 13. His diagnosis was that of coronavirus pneumonia, and hypoxemic respiratory failure. The patient was intubated on June 20. He remains on the ventilator. The patient is on the volume assist control mode, rate 34, tidal volume of 400, FiO2 70%, and PEEP of 18. Blood gases show pO2 of 72, pCO2 75, and pH 7.32. Currently, the patient is on Nimbex at 8 g kilogram per minute, fentanyl at 5 mcg/kg/h, propofol 60 mcg/kg/m, D5W at 100 mL an hour, and Nepro, at 28 mL an hour. The patient underwent tracheostomy and PEG tube placement on June 29. The patient has 2 chest tubes on the right, one chest tube on the left. There is a large leak on one of the right-sided chest tubes. We are going to DC vancomycin, DC Decadron, and start Solu-Medrol. White count 9.3, hemoglobin 9.5, hematocrit 29.7, and platelet count 152,000. Sodium 149, potassium 4.5, chlorides 111, CO2 38, BUN 94, creatinine 1.97. Microbiology is positive for staph, and Moraxella, on June 21 the sputum, and again, staph, on June 28. The patient remains on cefepime. Chest x-ray shows resolution of right-sided pneumothorax, and diffuse bilateral airspace disease. Progress note dated 07/01/2020. 55-year-old male, again seen in room 253. The patient was admitted to the hospital on June 13. The patient underwent tracheostomy and PEG tube placement on June 29 for failure to wean from mechanical ventilation. He currently remains on the mechanical ventilator. He is on the volume assist control mode rate of 34, tidal volume 400, FiO2 70%, PEEP of 18. Blood gases show pO2 71, pCO2 of 68, pH 7.28. The patient remains on Nimbex at 10 g kilogram per minut e, propofol at 50 mcg/kg/m, fentanyl 5 mcg/kg/h D5W 100 mL an hour, and tube feedings with Nepro at 29 mL an hour, which is goal. The patient has 2 chest tubes on the right, one on the left. There is a large leak from one of the right-sided chest tube. This no obvious pneumothorax on chest x-ray. The patient will get some additional fluid today, the form of lactated Ringer's, 1-2 L. White count 9.8, he will 9.3, hematocrit 27.8, and platelet count 196,000. Sodium 144, potassium 4.8, chlorides 108, CO2 31, anion gap 5, BUN 120, creatinine 2.78. Chest x-ray shows bilateral infiltrates, with no sizable pneumothorax. Objective - Vital Signs Vital signs: Vital Signs Temp 97.7 F 07/01/20 08:00 Pulse 81 07/01/20 09:00 Resp 45 H 07/01/20 09:00 BP 103/60 06/30/20 10:00 Pulse Ox 92 L 07/01/20 09:00 Intake & Output 06/30/20 07/01/20 07/01/20 18:59 06:59 18:59 Intake Total 2068.815 3508.000 893.264 Output Total 670 685 110 Balance 3941.281 4121.000 783.264 Weight 84 kg Intake: IV 1047 1322 418 Cefepime 2 gm In Sodium 75 50 100 Chloride 0.9% 100 ml @ 25 mls/hr IVPB Q8HR [facility] Rx# :[id number] Dextrose 5% in Water 1, 900 1200 300 000 ml @ 100 mls/hr IV . Q10H [facility] Rx#:[id number] pressure bag 72 72 18 Intake, IV Titration 424.901 1544.000 188.264 Amount Cisatracurium 200 mg In 326.771 494.665 Sodium Chloride 0.9% 180 ml @ 1 MCG/KG/MIN 3.81 mls/hr IV .Q24H [facility] Rx#: [id number] fentaNYL (PF). 1,000 mcg 368.301 378.858 93.663 In Sodium Chloride 0.9% 80 ml @ Per Protocol IV . Q0M [facility] Rx#:[id number] propofoL 1,000 mg In 268.743 364.477 94.601 Empty Bag 1 bag @ Titrate IV .Q0M [facility] Rx#: [id number] Tube Feeding 58 348 87 Other 600 200 Output: Chest Tube Drainage 175 160 Chest Tube Left 60 10 Chest Tube Right 35 90 Chest Tube Right Upper 80 60 Urine 495 525 110 Other: Voiding Method Indwelling Catheter Indwelling Catheter Indwelling Catheter ABP, PAP, CO, CI - Last Documented Arterial Blood Pressure 145/72 - Exam Currently, the patient is sedated and paralyzed. There is a midline tracheostomy tube noted. Saturation is 92%. HEENT examination is grossly unremarkable. Neck supple. Full range of motion. No adenopathy thyromegaly or neck vein distention. Some subcutaneous emphysema noted in the neck area. Cardiovascular examination reveals regular rhythm rate. S1-S2 normal. No S3 or S4. No discernible murmur noted. Heart rate 81 bpm. Lungs reveal coarse bilateral rhonchi. Bilateral crackles are also noted. There is also subcutaneous emphysema noted in the left chest area. There are bilateral chest tubes, 2 on the right, one on the left. The new right-sided chest tube, that I placed yesterday, has a significant leak. Abdomen soft bowel sounds are heard. No masses or tenderness. PEG tube is n oted. Extremities are intact. No cyanosis clubbing or edema. Skin is without rash or lesion. Neurologic examination could not be assessed as the patient's currently sedated and paralyzed. - Labs CBC & Chem 7: 07/01/20 04:30 07/01/20 04:30 Labs: Abnormal Lab Results - Last 24 Hours (Table) 06/30/20 06/30/20 06/30/20 Range/Units 11:56 18:05 18:16 RBC (4.30-5.90) m/uL Hgb (13.0-17.5) gm/dL Hct (39.0-53.0) % Neutrophils # (1.3-7.7) k/uL Lymphocytes # (1.0-4.8) k/uL ABG pH 7.30 L (7.35-7.45) ABG pCO2 70 H (35-45) mmHg ABG pO2 76 L (83-108) mmHg ABG HCO3 35 H (21-25) mmol/L ABG Total CO2 37 H (19-24) mmol/L ABG O2 Saturation (94-97) % Chloride (98-107) mmol/L Carbon Dioxide (22-30) mmol/L BUN (9-20) mg/dL Creatinine (0.66-1.25) mg/dL Glucose (74-99) mg/dL POC Glucose (mg/dL) 141 H 188 H (75-99) mg/dL Calcium (8.4-10.2) mg/dL 06/30/20 07/01/20 07/01/20 Range/Units 23:44 00:33 04:30 RBC (4.30-5.90) m/uL Hgb (13.0-17.5) gm/dL Hct (39.0-53.0) % Neutrophils # (1.3-7.7) k/uL Lymphocytes # (1.0-4.8) k/uL ABG pH (7.35-7.45) ABG pCO2 (35-45) mmHg ABG pO2 (83-108) mmHg ABG HCO3 (21-25) mmol/L ABG Total CO2 (19-24) mmol/L ABG O2 Saturation (94-97) % Chloride 108 H (98-107) mmol/L Carbon Dioxide 31 H (22-30) mmol/L BUN 120 H* (9-20) mg/dL Creatinine 2.78 H (0.66-1.25) mg/dL Glucose 171 H (74-99) mg/dL POC Glucose (mg/dL) 198 H 195 H (75-99) mg/dL Calcium 7.6 L (8.4-10.2) mg/dL 07/01/20 07/01/20 07/01/20 Range/Units 04:30 05:04 06:08 RBC 2.94 L (4.30-5.90) m/uL Hgb 9.3 L (13.0-17.5) gm/dL Hct 27.8 L (39.0-53.0) % Neutrophils # 9.0 H (1.3-7.7) k/uL Lymphocytes # 0.4 L (1.0-4.8) k/uL ABG pH 7.28 L (7.35-7.45) ABG pCO2 68 H (35-45) mmHg ABG pO2 71 L (83-108) mmHg ABG HCO3 32 H (21-25) mmol/L ABG Total CO2 34 H (19-24) mmol/L ABG O2 Saturation 92.6 L (94-97) % Chloride (98-107) mmol/L Carbon Dioxide (22-30) mmol/L BUN (9-20) mg/dL Creatinine (0.66-1.25) mg/dL Glucose (74-99) mg/dL POC Glucose (mg/dL) 212 H (75-99) mg/dL Calcium (8.4-10.2) mg/dL Microbiology - Last 24 Hours (Table) 06/27/20 22:24 Blood Culture - Preliminary Blood No Growth after 72 hours 06/27/20 18:31 Blood Culture - Preliminary Blood No Growth after 72 hours 06/28/20 00:40 Gram Stain - Final Sputum Sputum Culture - Final Staphylococcus aureus Assessment and Plan Assessment: Acute hypoxemic respiratory failure secondary to COVID 19 pneumonia/pneumonitis. Status post tracheostomy and PEG tube placement, June 29, for failure to wean from mechanical ventilation. Acute barotrauma from mechanical ventilation, and relatively high PEEP levels, requiring bilateral chest tubes, 2 on the right, and 1 on the left. Oxacillin sensitive staph aureus and Moraxella catarrhalis tracheobronchitis/bronchopneumonia. Hypernatremia. Elevated inflammatory markers. Hypotension, resolved. Hypertension, Cleveprex weaned off. Thrombocytopenia, secondary to sepsis. Plan: Plan dated 06/27/2020. The bicarbonate drip will be discontinued given the fact that the patient's sodium is quite high. No ventilator changes today. The patient will need a tracheostomy and PEG tube placement. Surgery will be consulted. In addition, a new arterial line will be placed today. Additional recommendations and suggestions are forthcoming. Prognosis is very guarded. We'll continue to follow make recommendations where appropriate. Plan dated 06/28/2020. The nurse did speak to the family about tracheostomy and PEG tube placement. Apparently they wanted to wait 1 additional day. Surgery was consulted. Yesterday, we replaced a arterial line that had gone bad. Overall prognosis remains guarded. We'll continue to follow. Labs, x-rays, medications are all reviewed. The patient remains on propofol, fentanyl, and Nimbex. He is getting nutrition with Nepro at goal. We will continue to follow make recommendations where needed. Also, because of the patient's hypernatremia, the patient be given D5W at 100 mL an hour. Plan dated 06/29/2020. I placed another right-sided chest tube last night. In addition, I did insert a left internal jugular triple-lumen catheter. I was not convinced that the PICC line in the right arm was functioning normally. The patient remains on Nimbex, propofol, and fentanyl. Hopefully, the patient will have a tracheostomy tube and PEG tube placed today. Tube feeds are on hold. The new right-sided chest tube has a significant leak and volumes of being lost from the chest tube. Additional recommendations and suggestions are forthcoming. We will continue to follow. Prognosis is guarded. Plan dated 06/30/2020. We will discontinue the vancomycin. The Staphylococcus noted on the most recent sputum, is oxacillin sensitive. The patient is ready on cefepime. We will discontinue Decadron, in favor of Solu-Medrol. The patient remains on Nimbex, fentanyl, and propofol. 2 feedings will be restarted today. The patient had a tracheostomy tube placed and PEG tube placed yesterday, June 29. Overall prognosis remains guarded. The patient has 2 right-sided chest tubes, and 1 left-sided chest tube. There is a large leak from one of the chest tubes on the right. Prognosis is guarded. We will continue to follow this patient and make recommendations where appropriate. Plan dated 07/01/2020. Currently, the patient remains on Nimbex, propofol, and fentanyl. The patient has 2 chest tubes on the right, one on the left. There is a considerable leak on one of the right-sided chest tubes. The patient underwent tracheostomy and PEG tube placement on June 29. Renal function is worsening. We'll consult nephrology. Because it appears that his pattern is that of prerenal azotemia, the patient will get 1-2 L of lactated Ringer's. We'll also see if we can change Nimbex to another paralytic. Additional recommendations and suggestions are forthcoming. Prognosis is guarded. We will continue to follow the patient and make recommendations where appropriate. Time with Patient: Greater than 30
[2020-07-01 12:05] LABS: Glucose,Whole Blood 226 mg/dL (75-99)
--- NOTE | 2020-07-01 12:48 | P.PN ---
Subjective Progress Note Date: 06/30/20 HISTORY OF PRESENT ILLNESS This is a 55-year-old male patient of Dr. Maxwell Alexander with significant past medical history. Patient states he started having symptoms on June 01 and was diagnosed with COVID-19 on June 08. Patient symptoms or body aches and fatigue as well as cough with white sputum production, increasing shortness of breath and measured pulse ox at home which worsened. He complains of headache chills and nausea. Patient presented to [facility] emergency center for evaluation. Patient was afebrile, heart rate 101, blood pressure 114/75, pulse ox 86% on room air. WBC 6.4, hemoglobin 16.2, platelet count 153. D-dimer 0.84. AST 106, ALT 44, alkaline phosphatase 57, LDH 2547. CRP 150. Sodium 129, potassium 4.6, chloride 97, CO2 23, BUN 12 and creatinine 0.84. Blood sugar 114. Chest x-ray reveals extensive pulmonary infiltrates related to pneumonia and ARDS. CTA of the chest reveals no pulmonary embolism. Patchy areas of nodular consolidations in the bilateral lower lobes with groundglass consolidation of the peripheral of the bilateral upper lobes consistent with multifocal infection compatible with Covid pneumonia. No pleural effusions or pneumothorax. Patient has been seen by pulmonary medicine is not a candidate f or Remdesivir. Convalescent plasma has been ordered as well as Tocilizumab 1 dose. Patient is currently pulse ox 95% on 15 L nonrebreather. 06/15: Repeat chest x-ray reveals worsening infiltrates. Patient is currently on nonrebreather and nasal cannula with pulse ox of 89%. Patient states that he is not sleeping because of coughing. He continues to have cough, shortness of breath. Noted to be tachypneic. Patient states he is eating okay. Melatonin, Flonase and Tessalon Perles added. Patient has been afebrile, heart rate 87, respiratory rate 32, blood pressure 112/70. Repeat blood work reveals WBC 11.4, hemoglobin 15.4, platelet count 208. D-dimer 0.95. Sodium 136 other electroly jagdeep and renal function normal. Blood sugar 118. AST 96, ALT 67, alkaline phosphatase 70. LDH 2884. C-reactive protein 59.4. 06/16: Patient's pulse ox is 90-92% on high flow nasal cannula at 13 L along with 100% nonrebreather. Patient was seen by Dr. Kern plan is to try and wean off 100% oxygen. Patient states that his breathing is stable today. He continues to have shortness of breath with minimal activity and cough. Patient started on mycelex noemi for thrush. He has been afebrile, heart rate 80, blood pressure 114/69. Repeat chest x-ray reveals improving bilateral lung infiltra jagdeep. Patient is continued on dexamethasone, Lovenox and vitamin supplements. 06/17: Yesterday afternoon, received call the patient had subcutaneous emphysema that was new and stat chest x-ray was ordered. This revealed interval development of subcutaneous emphysema within the bilateral neck. Some pneumo mediastinum may be present as the source. Pneumothorax is identified. This was reviewed by Dr. Kern at the time. Last evening at 2200, A-Team was called for puffiness of the neck and shoulder skin. Repeat chest x-ray revealed prominent interval increase in subcutaneous emphysema pattern. Patient was transferred to the intensive care unit. Patient has been seen in the intensive care unit today. He remains on 15 L high flow nasal cannula in addition to 100% nonrebreather facemask. D-dimer is 17.6, LDH 533. Patient remains on Decadron, Lovenox and supplements. Promethazine was added for cough suppression. Subcutaneous emphysema is stable. 06/18 patient evaluated bedside has worsening subcutaneous emphysema. Does appear anxious on examination. He is on Xanax to 0.25 mg twice a day with no improvement in patient's and slightly. We'll repeat chest x-ray does suggest tiny pneumothorax in addition to subcutaneous emphysema. Patient is currently maintaining oxygen saturation on interval 60 L with FiO2 of 90% with a nonrebreather 100%. Minimum exertion is causing desaturation. Patient appears to have worsening inflammation markers including worsening LDH and liver enzymes. Pulmonary care for management of the Covid. Continues to keep patient on dexamethasone, convalescent plasma. Patient is not a candidate for remdesivir. We will start patient on Lexapro 10 mg daily at bedtime to help with anxiety. IV fluids switch to D5NS as patient is not eating being on mask and is hungry. 06/19 patient evaluated bedside has worsening subcutaneous emphysema, facial swelling and pneumomediastinum. Patient is alert and keeping saturation 90-92% on BiPAP. He appears anxious and is breathing at 26 respiratory rate per minute. Blood pressure 1:30/74 heart rate of 113.chest x-rays consistent with bilateral subcutaneous emphysema and pneumomediastinum any apical pneumothorax dizzy and chest tube at this point. On evaluation patient's labs patient's leukocytosis and 19 sodium stable at 1:30, creatinine 0.67 and ferritin is 3144 elevated liver enzymes early at 7846 increased from prior low albumin. patient continues to have increased in size the despite initiation of Remeron will increase Remeron to 30 mg at bedtime Xanax increased to 0.5 twice a day f rom 0.25. Ativan can be given if patient is unable to tolerate oral medication. Plan to start patient on TPN tomorrow. Low sodium could be a results of D5W 06/20: Repeat blood work reveals WBC 29.6, hemoglobin 17, platelet count 124. D- dimer greater than 35. Sodium 132, potassium 5.4, chloride 95, CO2 31, BUN 28 creatinine 0.75. Blood sugar 162. AST 131, ALT 92, alkaline phosphatase 310. LDH 9901. CK 501. C-reactive protein 3.7. Patient became more hypoxic during the night with pulse ox down to the low 70s with mental status changes. Patient was intubated and placed on mechanical ventilation. Tidal volume 400, FiO2 of 75% and PEEP of 18. He is on propofol, Nimbex, levo fed was started and he is status post 2 L of IV fluid. He has on a fentanyl drip. Patient has extensive subcutaneous emphysema. Remeron and clotrimazole discontinued 06/21: Patient remains intubated and on mechanical ventilation. Tidal volume 400, FiO2 decreased from 85-80% this morning, PEEP 16. Patient had bilateral chest tubes placed for pneumothorax bilaterally. This was done last evening. Patient is currently on Nimbex, fentanyl, levo fed. He is on tube feedings at goal. Temperature max 100.2, heart rate 107, respiratory rate 33, blood pressure 118/62, pulse ox 90% with goal to keep above 85%. Repeat blood work reveals WBC 15.9, hemoglobin 14.6, platelet count 96. Sodium 137, potassium 5.1, chloride 100, CO2 39, BUN 26 and creatinine 0.69. Phosphorus 7.3. Magnesium 3.0. Total bilirubin 0.7, AST 59, ALT 61, alkaline phosphatase 190. D-dimer 14.6. LDH 3891. CK 902. C-reactive protein 4.1. Repeat chest x-ray reveals persistent severe bilateral subcutaneous emphysema limiting assessment. Underlying groundglass changes persist. Bilateral chest tubes. Right apical pneumothorax smaller 6 mm versus 2 cm previously. Left apical pneumothorax no longer seen. Better demonstrated pneumomediastinum though suspected to have decreased compared to prior exam. Patient does have less subcutaneous emphysema. 06/22: She remains intubated and on mechanical ventilation with tidal volume 400, FiO2 was 100% this morning and decrease to 70, PEEP is 20. Patient is on propofol and fentanyl as well as Nimbex and bicarb drip. He is not on norepinephrine. Patient is on tube feedings at goal. He remains with bilateral chest tubes in place, no air leak. He has been afebrile, heart rate 108, respiratory rate 34, a pressure 108/61, pulse ox is 90%. Repeat blood work reveals WBC 20, hemoglobin 13.7. D-dimer 10.74. CO2 42, BUN 31 creatinine 0.63. Blood sugars running between 130s to 177. Repeat chest x-ray reveals stable findings. patient remains intubated with a tidal volume of 400 FiO2 of 65% PEEP 20. Patient continues to remain sedated and paralyzed on propofol, fentanyl Precedex and Pneumovax. Continues to have chest tubes with slight air leaks noted. Ch est x-ray continues to remain the same with bilateral patchy infiltrate and subcutaneous emphysema. Vitals this morning suggests tachycardia 120 respiratory rate 34 saturating 90% on 65% FiO2 blood pressure 128/71 labs suggestive leukocytosis of 17.6 hemoglobin 12.9 ABG drawn at this morning sugges ts a pH of 7.3 pCO2 86 pO2 77 bicarb 50. Patient's LDH is 12,748. CRP 7. 06/24 patient remains intubated and mechanically ventilated sedated and paralyzed on assist control with a tidal volume of 400 FiO2 60% PEEP on 20 respiratory rate of 14. ABG done this morning suggests a pO2 of 75 pCO2 83. 7.39. Patient continues to remain on propofol and Pneumovax and fentanyl. The bicarb drip discontinued. 10 chest x-ray shows bilateral subcutaneous emphysema with bilateral patchy infiltrates. Concern for small right apical pneumothorax measuring 1.2 cm versus 9 mm previously. Patient continues to have bilateral chest tubes, minimally leak noted in the right-sided chest tube. No air leak on the left-sided chest tube. Patient remains on enteral feeding. In assessment of patient's blood work slight improvement in CRP noted at 4.7H improved to 2733 liver enzymes continue to rise with AST of 90 ALT 105 alkaline phosphatase 2:30. Bicarb increased to 48. Bicarb drip discontinued. Potassium is noted to be high. One dose of Kayexalate ordered 06/25: Patient remains intubated and mechanically ventilated sedated on pressors on assist control and tidal volume of 400 FiO2 PEEP of 20. Respirations of 14. Patient continues to remain on propofol and Pneumovax and fentanyl. The bicarb drip has been discontinued. Today's chest x-ray shows bilateral subcutaneous emphysema bilateral patchy infiltrates they're similar to the prior exam. Patient continues to have bilateral chest tubes. A 14 Angiocath was inserted into his neck to help relieve subcutaneous emphysema. Patient remains on enternal feeding. WCC 60.4, hemoglobin 12.1, platelets 159, potassium 5.1, BUN 48, creatinine 0.63. ABG pH 7.38, pCO2 87, pO2 61, HCO3 51, ABG O2 sat 91. 06/26: Maintained intubated and mechanically ventilated sedated and paralyzed on assist control with FiO2 on 65% and a PEEP of 18. WBC 17, hemoglobin 11.6, potassium 5.3, BUN 48, creatinine 0.64 d-dimer 3.67,. Temperature 99.9. Patient continues to remain on propofol and Pneumovax and fentanyl. Chest x-ray findings similar to prior exam. Angiocath to the left subclavian to help with subcutaneous emphysema. Substance emphysema is improved compared to yesterday with less edema to face and neck. Patient remains on enternal feeding. Bilateral chest tubes in place and draining. 06/27: Patient remain intubated and sedated still required high FiO2 with higher PEEP to keep his pulse ox above 90 percentile. Patient subcutaneous emphysema slightly but better today there is no more swelling and eyelid this point. Patient still sedated. Patient will be going for trach and PEG tube tomorrow, patient probably will require longer term vent management. 06/28: Patient remains in the ICU, still intubated and sedated bilateral chest tubes in place with intermittent air leaks to the right chest tube. He continues on cefepime for positive cultures for MSSA and moraxella. Subcutaneous emphysema status post placement of 14-gauge Angiocath to left neck has improved. He will be going for tracheostomy and PEG tube placement today. Bicarbonate drip was discontinued due to hyponatremia and he was started on D5W. 06/29: A shunt underwent PEG tube and trach placement today. He also had a second right-sided chest tube placed by Dr. Patel last night. Patient now has 2 chest tubes on the right and one on the left. He remains on mechanical ventilation with tidal volume 500, FiO2 70, PEEP of 18. He has been afebrile for 24 hours. Heart rate 101, respiratory rate 36, blood pressure 100/61, pulse ox 96%. WBC 12.7, hemoglobin 10.3, platelet count 139. Sodium 150, potassium 4.6, chloride 107, CO2 42, BUN 83 and creatinine of 1.27. Blood sugars running between 121-168. 06/30: Patient remains in the intensive care unit status post tracheostomy and PEG tube placement yesterday by Dr. Apodaca. Tracheostomy tube remains intact and midline. She remains on ventilator with assist control 34, tidal volume 400, FiO2 70% and PEEP of 18. Oxygen saturation on current mechanical ventilator settings are 89%. He has one left pleural chest tube and 2 right pleural chest tubes. Continuous air leak to one of the right pleural chest tubes. Draining thin scant serosanguineous drainage. Chest x-ray this morning shows resolution of the right-sided pneumothorax. Sputum culture was positive for MSSA, Moraxella and is currently on cefepime and vancomycin. Urine output has been 30-60 mL per hour. Remains on fentanyl drip, propofol drip and Nimbex drip. Repeat blood work reveals WBC 9.3, hemoglobin 9.5, platelet count 152. Sodium 149, potassium 4.5, chloride 111, CO2 38, BUN 94, creatinine 1.97. Blood sugar 114. Patient is currently on dextrose 5%. REVIEW OF SYSTEMS Unable to obtain due to intubation. PHYSICAL EXAMINATION Gen: This is a 55-year-old male. He is resting in ICU bed appears to be comfortable. Facial swelling continues. HEENT: Head is atraumatic, normocephalic. Tracheostomy is midline. NECK: Subcutaneous emphysema. chest : Patient currently has 2 right-sided chest tubes and 1 left-sided chest tube.Chest tube noted with minimal air leak noted on the right chest tube no air leak noted on the left chest tube. Breath sounds are diminished bilaterally. Cardiac: Regular rate S1-S2 no S3 or JVD. Abdomen: positive bowel sounds, nondistended, PEG tube in place. Blevins catheter draining clear alex urine.. Extremities trace edema bilaterally. Neurologic exam patient is sedated currently on mechanical ventilation. ASSESSMENT AND PLAN 1. Acute hypoxic respiratory failure secondary to Covid 19 pneumonia requiring intubation and mechanical ventilation on 06/19. Patient has been seen by pulmonary medicine status post Convalescent plasma and Tocilizumab 1 dose. Continue dexamethasone 6 mg IV every 24 hours, Lovenox 40 mg subcu twice daily, vitamins, cefepime 2 g IV piggyback every 8 hours. Patient is off vasopressors. He is status post trach and PEG tube insertion. 2. Elevated inflammatory markers secondary to Covid 19. Continue to monitor. 3. Mild hyponatremia. Continue IV fluids. 4. Elevated d-dimer. Acute pulmonary embolism has been ruled out by CTA. 5. Lymphocytopenia secondary to Covid 19. 6. Thrush. Patient started on Mycelex troches. 7. Subcutaneous emphysema and pneumomediastinum, stable. Status post bilateral chest tube insertion with improvement. 8. Thrombocytopenia secondary to Covid. Continue to monitor. 9. Metabolic acidosis. Patient is on bicarb drip. 10. Hyperglycemia. Continue Accu-Cheks and sliding scale insulin. 11. GI prophylaxis. Protonix daily. 12. DVT prophylaxis. Lovenox. Prognosis is guarded. Impression and plan of care have been directed as dictated by the signing physician. Cathy Quintanilla nurse practitioner acting as scribe for signing physician. Objective - Vital Signs Vital signs: Vital Signs Temp 99.0 F 06/30/20 08:00 Pulse 108 H 06/30/20 10:00 Resp 36 H 06/30/20 10:00 BP 103/60 06/30/20 10:00 Pulse Ox 89 L 06/30/20 10:00 Intake & Output 06/29/20 06/30/20 06/30/20 18:59 06:59 18:59 Intake Total 8618.077 4725.641 828.471 Output Total 1235 1255 260 Balance 436.171 4671.641 568.471 Weight 75.5 kg Intake: IV 1272 1622 418 Cefepime 2 gm In Sodium 100 100 Chloride 0.9% 100 ml @ 25 mls/hr IVPB Q8HR [facility] Rx# :[id number] Dextrose 5% in Water 1, 1200 1200 300 000 ml @ 100 mls/hr IV . Q10H [facility] Rx#:[id number] Vancomycin 250 pressure bag 72 72 18 Intake, IV Titration 699.200 948.641 410.471 Amount Cisatracurium 200 mg In 219.996 347.599 151.892 Sodium Chloride 0.9% 180 ml @ 1 MCG/KG/MIN 3.81 mls/hr IV .Q24H [facility] Rx#: [id number] fentaNYL (PF). 1,000 mcg 252.731 315.477 172.509 In Sodium Chloride 0.9% 80 ml @ Per Protocol IV . Q0M [facility] Rx#:[id number] propofoL 1,000 mg In 226.473 285.565 86.07 Empty Bag 1 bag @ Titrate IV .Q0M [facility] Rx#: [id number] Output: Chest Tube Drainage 350 230 70 Chest Tube Left 70 10 10 Chest Tube Right 130 120 30 Chest Tube Right Upper 150 100 30 Urine 885 1025 190 Other: Voiding Method Indwelling Catheter Indwelling Catheter Indwelling Catheter ABP, PAP, CO, CI - Last Documented Arterial Blood Pressure 102/56 - Labs CBC & Chem 7: 07/01/20 04:30 07/01/20 04:30 Labs: Abnormal Lab Results - Last 24 Hours (Table) 06/29/20 06/29/20 06/29/20 Range/Units 12:01 17:32 23:48 RBC (4.30-5.90) m/uL Hgb (13.0-17.5) gm/dL Hct (39.0-53.0) % Neutrophils # (1.3-7.7) k/uL Lymphocytes # (1.0-4.8) k/uL ABG pH (7.35-7.45) ABG pCO2 (35-45) mmHg ABG pO2 (83-108) mmHg ABG HCO3 (21-25) mmol/L ABG Total CO2 (19-24) mmol/L ABG O2 Saturation (94-97) % Sodium (137-145) mmol/L Chloride (98-107) mmol/L Carbon Dioxide (22-30) mmol/L BUN (9-20) mg/dL Creatinine (0.66-1.25) mg/dL Glucose (74-99) mg/dL POC Glucose (mg/dL) 127 H 160 H 147 H (75-99) mg/dL Calcium (8.4-10.2) mg/dL 06/30/20 06/30/20 06/30/20 Range/Units 04:47 04:47 04:53 RBC 3.09 L (4.30-5.90) m/uL Hgb 9.5 L (13.0-17.5) gm/dL Hct 29.7 L (39.0-53.0) % Neutrophils # 8.2 H (1.3-7.7) k/uL Lymphocytes # 0.7 L (1.0-4.8) k/uL ABG pH 7.32 L (7.35-7.45) ABG pCO2 75 H* (35-45) mmHg ABG pO2 72 L (83-108) mmHg ABG HCO3 38 H (21-25) mmol/L ABG Total CO2 41 H (19-24) mmol/L ABG O2 Saturation 93.8 L (94-97) % Sodium 149 H (137-145) mmol/L Chloride 111 H (98-107) mmol/L Carbon Dioxide 38 H (22-30) mmol/L BUN 94 H (9-20) mg/dL Creatinine 1.97 H (0.66-1.25) mg/dL Glucose 114 H (74-99) mg/dL POC Glucose (mg/dL) (75-99) mg/dL Calcium 7.6 L (8.4-10.2) mg/dL 06/30/20 Range/Units 06:33 RBC (4.30-5.90) m/uL Hgb (13.0-17.5) gm/dL Hct (39.0-53.0) % Neutrophils # (1.3-7.7) k/uL Lymphocytes # (1.0-4.8) k/uL ABG pH (7.35-7.45) ABG pCO2 (35-45) mmHg ABG pO2 (83-108) mmHg ABG HCO3 (21-25) mmol/L ABG Total CO2 (19-24) mmol/L ABG O2 Saturation (94-97) % Sodium (137-145) mmol/L Chloride (98-107) mmol/L Carbon Dioxide (22-30) mmol/L BUN (9-20) mg/dL Creatinine (0.66-1.25) mg/dL Glucose (74-99) mg/dL POC Glucose (mg/dL) 138 H (75-99) mg/dL Calcium (8.4-10.2) mg/dL Microbiology - Last 24 Hours (Table) 06/28/20 00:40 Gram Stain - Final Sputum Sputum Culture - Final Staphylococcus aureus 06/27/20 22:24 Blood Culture - Preliminary Blood No Growth after 48 hours 06/27/20 18:31 Blood Culture - Preliminary Blood No Growth after 48 hours
--- NOTE | 2020-07-01 13:02 | P.PN ---
Subjective Progress Note Date: 07/01/20 HISTORY OF PRESENT ILLNESS This is a 55-year-old male patient of Dr. Maxwell Alexander with significant past medical history. Patient states he started having symptoms on June 01 and was diagnosed with COVID-19 on June 08. Patient symptoms or body aches and fatigue as well as cough with white sputum production, increasing shortness of breath and measured pulse ox at home which worsened. He complains of headache chills and nausea. Patient presented to [facility] emergency center for evaluation. Patient was afebrile, heart rate 101, blood pressure 114/75, pulse ox 86% on room air. WBC 6.4, hemoglobin 16.2, platelet count 153. D-dimer 0.84. AST 106, ALT 44, alkaline phosphatase 57, LDH 2547. CRP 150. Sodium 129, potassium 4.6, chloride 97, CO2 23, BUN 12 and creatinine 0.84. Blood sugar 114. Chest x-ray reveals extensive pulmonary infiltrates related to pneumonia and ARDS. CTA of the chest reveals no pulmonary embolism. Patchy areas of nodular consolidations in the bilateral lower lobes with groundglass consolidation of the peripheral of the bilateral upper lobes consistent with multifocal infection compatible with Covid pneumonia. No pleural effusions or pneumothorax. Patient has been seen by pulmonary medicine is not a candidate f or Remdesivir. Convalescent plasma has been ordered as well as Tocilizumab 1 dose. Patient is currently pulse ox 95% on 15 L nonrebreather. 06/15: Repeat chest x-ray reveals worsening infiltrates. Patient is currently on nonrebreather and nasal cannula with pulse ox of 89%. Patient states that he is not sleeping because of coughing. He continues to have cough, shortness of breath. Noted to be tachypneic. Patient states he is eating okay. Melatonin, Flonase and Tessalon Perles added. Patient has been afebrile, heart rate 87, respiratory rate 32, blood pressure 112/70. Repeat blood work reveals WBC 11.4, hemoglobin 15.4, platelet count 208. D-dimer 0.95. Sodium 136 other electroly jagdeep and renal function normal. Blood sugar 118. AST 96, ALT 67, alkaline phosphatase 70. LDH 2884. C-reactive protein 59.4. 06/16: Patient's pulse ox is 90-92% on high flow nasal cannula at 13 L along with 100% nonrebreather. Patient was seen by Dr. Kern plan is to try and wean off 100% oxygen. Patient states that his breathing is stable today. He continues to have shortness of breath with minimal activity and cough. Patient started on mycelex noemi for thrush. He has been afebrile, heart rate 80, blood pressure 114/69. Repeat chest x-ray reveals improving bilateral lung infiltra jagdeep. Patient is continued on dexamethasone, Lovenox and vitamin supplements. 06/17: Yesterday afternoon, received call the patient had subcutaneous emphysema that was new and stat chest x-ray was ordered. This revealed interval development of subcutaneous emphysema within the bilateral neck. Some pneumo mediastinum may be present as the source. Pneumothorax is identified. This was reviewed by Dr. Kern at the time. Last evening at 2200, A-Team was called for puffiness of the neck and shoulder skin. Repeat chest x-ray revealed prominent interval increase in subcutaneous emphysema pattern. Patient was transferred to the intensive care unit. Patient has been seen in the intensive care unit today. He remains on 15 L high flow nasal cannula in addition to 100% nonrebreather facemask. D-dimer is 17.6, LDH 533. Patient remains on Decadron, Lovenox and supplements. Promethazine was added for cough suppression. Subcutaneous emphysema is stable. 06/18 patient evaluated bedside has worsening subcutaneous emphysema. Does appear anxious on examination. He is on Xanax to 0.25 mg twice a day with no improvement in patient's and slightly. We'll repeat chest x-ray does suggest tiny pneumothorax in addition to subcutaneous emphysema. Patient is currently maintaining oxygen saturation on interval 60 L with FiO2 of 90% with a nonrebreather 100%. Minimum exertion is causing desaturation. Patient appears to have worsening inflammation markers including worsening LDH and liver enzymes. Pulmonary care for management of the Covid. Continues to keep patient on dexamethasone, convalescent plasma. Patient is not a candidate for remdesivir. We will start patient on Lexapro 10 mg daily at bedtime to help with anxiety. IV fluids switch to D5NS as patient is not eating being on mask and is hungry. 06/19 patient evaluated bedside has worsening subcutaneous emphysema, facial swelling and pneumomediastinum. Patient is alert and keeping saturation 90-92% on BiPAP. He appears anxious and is breathing at 26 respiratory rate per minute. Blood pressure 1:30/74 heart rate of 113.chest x-rays consistent with bilateral subcutaneous emphysema and pneumomediastinum any apical pneumothorax dizzy and chest tube at this point. On evaluation patient's labs patient's leukocytosis and 19 sodium stable at 1:30, creatinine 0.67 and ferritin is 3144 elevated liver enzymes early at 7846 increased from prior low albumin. patient continues to have increased in size the despite initiation of Remeron will increase Remeron to 30 mg at bedtime Xanax increased to 0.5 twice a day f rom 0.25. Ativan can be given if patient is unable to tolerate oral medication. Plan to start patient on TPN tomorrow. Low sodium could be a results of D5W 06/20: Repeat blood work reveals WBC 29.6, hemoglobin 17, platelet count 124. D- dimer greater than 35. Sodium 132, potassium 5.4, chloride 95, CO2 31, BUN 28 creatinine 0.75. Blood sugar 162. AST 131, ALT 92, alkaline phosphatase 310. LDH 9901. CK 501. C-reactive protein 3.7. Patient became more hypoxic during the night with pulse ox down to the low 70s with mental status changes. Patient was intubated and placed on mechanical ventilation. Tidal volume 400, FiO2 of 75% and PEEP of 18. He is on propofol, Nimbex, levo fed was started and he is status post 2 L of IV fluid. He has on a fentanyl drip. Patient has extensive subcutaneous emphysema. Remeron and clotrimazole discontinued 06/21: Patient remains intubated and on mechanical ventilation. Tidal volume 400, FiO2 decreased from 85-80% this morning, PEEP 16. Patient had bilateral chest tubes placed for pneumothorax bilaterally. This was done last evening. Patient is currently on Nimbex, fentanyl, levo fed. He is on tube feedings at goal. Temperature max 100.2, heart rate 107, respiratory rate 33, blood pressure 118/62, pulse ox 90% with goal to keep above 85%. Repeat blood work reveals WBC 15.9, hemoglobin 14.6, platelet count 96. Sodium 137, potassium 5.1, chloride 100, CO2 39, BUN 26 and creatinine 0.69. Phosphorus 7.3. Magnesium 3.0. Total bilirubin 0.7, AST 59, ALT 61, alkaline phosphatase 190. D-dimer 14.6. LDH 3891. CK 902. C-reactive protein 4.1. Repeat chest x-ray reveals persistent severe bilateral subcutaneous emphysema limiting assessment. Underlying groundglass changes persist. Bilateral chest tubes. Right apical pneumothorax smaller 6 mm versus 2 cm previously. Left apical pneumothorax no longer seen. Better demonstrated pneumomediastinum though suspected to have decreased compared to prior exam. Patient does have less subcutaneous emphysema. 06/22: She remains intubated and on mechanical ventilation with tidal volume 400, FiO2 was 100% this morning and decrease to 70, PEEP is 20. Patient is on propofol and fentanyl as well as Nimbex and bicarb drip. He is not on norepinephrine. Patient is on tube feedings at goal. He remains with bilateral chest tubes in place, no air leak. He has been afebrile, heart rate 108, respiratory rate 34, a pressure 108/61, pulse ox is 90%. Repeat blood work reveals WBC 20, hemoglobin 13.7. D-dimer 10.74. CO2 42, BUN 31 creatinine 0.63. Blood sugars running between 130s to 177. Repeat chest x-ray reveals stable findings. patient remains intubated with a tidal volume of 400 FiO2 of 65% PEEP 20. Patient continues to remain sedated and paralyzed on propofol, fentanyl Precedex and Pneumovax. Continues to have chest tubes with slight air leaks noted. Ch est x-ray continues to remain the same with bilateral patchy infiltrate and subcutaneous emphysema. Vitals this morning suggests tachycardia 120 respiratory rate 34 saturating 90% on 65% FiO2 blood pressure 128/71 labs suggestive leukocytosis of 17.6 hemoglobin 12.9 ABG drawn at this morning sugges ts a pH of 7.3 pCO2 86 pO2 77 bicarb 50. Patient's LDH is 12,748. CRP 7. 06/24 patient remains intubated and mechanically ventilated sedated and paralyzed on assist control with a tidal volume of 400 FiO2 60% PEEP on 20 respiratory rate of 14. ABG done this morning suggests a pO2 of 75 pCO2 83. 7.39. Patient continues to remain on propofol and Pneumovax and fentanyl. The bicarb drip discontinued. 10 chest x-ray shows bilateral subcutaneous emphysema with bilateral patchy infiltrates. Concern for small right apical pneumothorax measuring 1.2 cm versus 9 mm previously. Patient continues to have bilateral chest tubes, minimally leak noted in the right-sided chest tube. No air leak on the left-sided chest tube. Patient remains on enteral feeding. In assessment of patient's blood work slight improvement in CRP noted at 4.7H improved to 2733 liver enzymes continue to rise with AST of 90 ALT 105 alkaline phosphatase 2:30. Bicarb increased to 48. Bicarb drip discontinued. Potassium is noted to be high. One dose of Kayexalate ordered 06/25: Patient remains intubated and mechanically ventilated sedated on pressors on assist control and tidal volume of 400 FiO2 PEEP of 20. Respirations of 14. Patient continues to remain on propofol and Pneumovax and fentanyl. The bicarb drip has been discontinued. Today's chest x-ray shows bilateral subcutaneous emphysema bilateral patchy infiltrates they're similar to the prior exam. Patient continues to have bilateral chest tubes. A 14 Angiocath was inserted into his neck to help relieve subcutaneous emphysema. Patient remains on enternal feeding. WCC 60.4, hemoglobin 12.1, platelets 159, potassium 5.1, BUN 48, creatinine 0.63. ABG pH 7.38, pCO2 87, pO2 61, HCO3 51, ABG O2 sat 91. 06/26: Maintained intubated and mechanically ventilated sedated and paralyzed on assist control with FiO2 on 65% and a PEEP of 18. WBC 17, hemoglobin 11.6, potassium 5.3, BUN 48, creatinine 0.64 d-dimer 3.67,. Temperature 99.9. Patient continues to remain on propofol and Pneumovax and fentanyl. Chest x-ray findings similar to prior exam. Angiocath to the left subclavian to help with subcutaneous emphysema. Substance emphysema is improved compared to yesterday with less edema to face and neck. Patient remains on enternal feeding. Bilateral chest tubes in place and draining. 06/27: Patient remain intubated and sedated still required high FiO2 with higher PEEP to keep his pulse ox above 90 percentile. Patient subcutaneous emphysema slightly but better today there is no more swelling and eyelid this point. Patient still sedated. Patient will be going for trach and PEG tube tomorrow, patient probably will require longer term vent management. 06/28: Patient remains in the ICU, still intubated and sedated bilateral chest tubes in place with intermittent air leaks to the right chest tube. He continues on cefepime for positive cultures for MSSA and moraxella. Subcutaneous emphysema status post placement of 14-gauge Angiocath to left neck has improved. He will be going for tracheostomy and PEG tube placement today. Bicarbonate drip was discontinued due to hyponatremia and he was started on D5W. 06/29: A shunt underwent PEG tube and trach placement today. He also had a second right-sided chest tube placed by Dr. Patel last night. Patient now has 2 chest tubes on the right and one on the left. He remains on mechanical ventilation with tidal volume 500, FiO2 70, PEEP of 18. He has been afebrile for 24 hours. Heart rate 101, respiratory rate 36, blood pressure 100/61, pulse ox 96%. WBC 12.7, hemoglobin 10.3, platelet count 139. Sodium 150, potassium 4.6, chloride 107, CO2 42, BUN 83 and creatinine of 1.27. Blood sugars running between 121-168. 06/30: Patient remains in the intensive care unit status post tracheostomy and PEG tube placement yesterday by Dr. Apodaca. Tracheostomy tube remains intact and midline. She remains on ventilator with assist control 34, tidal volume 400, FiO2 70% and PEEP of 18. Oxygen saturation on current mechanical ventilator settings are 89%. He has one left pleural chest tube and 2 right pleural chest tubes. Continuous air leak to one of the right pleural chest tubes. Draining thin scant serosanguineous drainage. Chest x-ray this morning shows resolution of the right-sided pneumothorax. Sputum culture was positive for MSSA, Moraxella and is currently on cefepime and vancomycin. Urine output has been 30-60 mL per hour. Remains on fentanyl drip, propofol drip and Nimbex drip. Repeat blood work reveals WBC 9.3, hemoglobin 9.5, platelet count 152. Sodium 149, potassium 4.5, chloride 111, CO2 38, BUN 94, creatinine 1.97. Blood sugar 114. Patient is currently on dextrose 5%. 07/01: Patient remains with mechanical ventilation with tidal volume 400, FiO2 70% and PEEP of 18, assist control mode of 34. He remains with 2 right-sided chest tubes in 1 left-sided. There is largely on the right-sided chest tube. Repeat chest x-ray reveals bilateral airspace infiltrates persist greatest on the right lung base. No sizable pneumothorax seen at this time. He has been afebrile, heart rate 75, respiratory rate 42, blood pressure 134/70, pulse ox 93%. Repeat blood work reveals WBC 9.8, hemoglobin 9.3, platelet count 196. Sodium 144, potassium 4.8, chloride 108, CO2 31. Renal function is worsening with BUN of 120 and creatinine 2.78. Blood sugars are now running 171-226. Levemir 7 units daily will be added. Patient's girlfriend apparently is upset that she feels she is not getting enough information about the patient. She did get an update this morning from patient's nurse. Dr. Baldwin will contact the patient's girlfriend today. REVIEW OF SYSTEMS Unable to obtain due to intubation. PHYSICAL EXAMINATION Gen: This is a 55-year-old male. He is resting in ICU bed appears to be comfortable. Facial swelling continues. HEENT: Head is atraumatic, normocephalic. Tracheostomy is midline. NECK: Subcutaneous emphysema. chest : Patient currently has 2 right-sided chest tubes and 1 left-sided chest tube.Chest tube noted with minimal air leak noted on the right chest tube no air leak noted on the left chest tube. Breath sounds are diminished bilaterally. Cardiac: Regular rate S1-S2 no S3 or JVD. Abdomen: positive bowel sounds, nondistended, PEG tube in place. Blevins catheter draining clear alex urine.. Extremities trace edema bilaterally. Neurologic exam patient is sedated currently on mechanical ventilation. ASSESSMENT AND PLAN 1. Acute hypoxic respiratory failure secondary to Covid 19 pneumonia requiring intubation and mechanical ventilation on 06/19. Patient has been seen by pulmonary medicine status post Convalescent plasma and Tocilizumab 1 dose. Continue Solu-Medrol 60 mg IV every 6 hours, Lovenox 40 mg subcu daily, vitamins, cefepime 2 g IV piggyback every 8 hours. Patient is off vasopressors. He is status post trach and PEG tube insertion. 2. Elevated inflammatory markers secondary to Covid 19. Continue to monitor. 3. Mild hyponatremia, hypernatremia. Patient is currently on D5W at 100 mL/h. 4. Elevated d-dimer. Acute pulmonary embolism has been ruled out by CTA. 5. Lymphocytopenia secondary to Covid 19. 6. Thrush. Status post treatment 7. Subcutaneous emphysema and pneumomediastinum, stable. Status post bilateral chest tube insertion with improvement. 8. Right-sided pneumothorax status post second chest tube. 9. Thrombocytopenia secondary to Covid. Continue to monitor. 10. Metabolic acidosis. Status post bicarb drip. 11. Hyperglycemia. Continue Accu-Cheks and sliding scale insulin. Levemir 7 units daily added. 11. GI prophylaxis. Protonix daily. 12. DVT prophylaxis. Lovenox. Prognosis is guarded. Impression and plan of care have been directed as dictated by the signing physician. Cathy Quintanilla nurse practitioner acting as scribe for signing physician. Objective - Vital Signs Vital signs: Vital Signs Temp 97.7 F 07/01/20 08:00 Pulse 71 07/01/20 11:00 Resp 42 H 07/01/20 11:00 BP 103/60 06/30/20 10:00 Pulse Ox 93 L 07/01/20 11:00 Intake & Output 06/30/20 07/01/20 07/01/20 18:59 06:59 18:59 Intake Total 2068.815 3508.000 893.264 Output Total 670 685 110 Balance 5248.243 6788.000 783.264 Weight 84 kg Intake: IV 1047 1322 418 Cefepime 2 gm In Sodium 75 50 100 Chloride 0.9% 100 ml @ 25 mls/hr IVPB Q8HR [facility] Rx# :[id number] Dextrose 5% in Water 1, 900 1200 300 000 ml @ 100 mls/hr IV . Q10H [facility] Rx#:[id number] pressure bag 72 72 18 Intake, IV Titration 876.964 4212.000 188.264 Amount Cisatracurium 200 mg In 326.771 494.665 Sodium Chloride 0.9% 180 ml @ 1 MCG/KG/MIN 3.81 mls/hr IV .Q24H [facility] Rx#: [id number] fentaNYL (PF). 1,000 mcg 368.301 378.858 93.663 In Sodium Chloride 0.9% 80 ml @ Per Protocol IV . Q0M [facility] Rx#:[id number] propofoL 1,000 mg In 268.743 364.477 94.601 Empty Bag 1 bag @ Titrate IV .Q0M [facility] Rx#: [id number] Tube Feeding 58 348 87 Other 600 200 Output: Chest Tube Drainage 175 160 Chest Tube Left 60 10 Chest Tube Right 35 90 Chest Tube Right Upper 80 60 Urine 495 525 110 Other: Voiding Method Indwelling Catheter Indwelling Catheter Indwelling Catheter ABP, PAP, CO, CI - Last Documented Arterial Blood Pressure 111/69 - Labs CBC & Chem 7: 07/01/20 04:30 07/01/20 04:30 Labs: Abnormal Lab Results - Last 24 Hours (Table) 06/30/20 06/30/20 06/30/20 Range/Units 11:56 18:05 18:16 RBC (4.30-5.90) m/uL Hgb (13.0-17.5) gm/dL Hct (39.0-53.0) % Neutrophils # (1.3-7.7) k/uL Lymphocytes # (1.0-4.8) k/uL ABG pH 7.30 L (7.35-7.45) ABG pCO2 70 H (35-45) mmHg ABG pO2 76 L (83-108) mmHg ABG HCO3 35 H (21-25) mmol/L ABG Total CO2 37 H (19-24) mmol/L ABG O2 Saturation (94-97) % Chloride (98-107) mmol/L Carbon Dioxide (22-30) mmol/L BUN (9-20) mg/dL Creatinine (0.66-1.25) mg/dL Glucose (74-99) mg/dL POC Glucose (mg/dL) 141 H 188 H (75-99) mg/dL Calcium (8.4-10.2) mg/dL 06/30/20 07/01/20 07/01/20 Range/Units 23:44 00:33 04:30 RBC (4.30-5.90) m/uL Hgb (13.0-17.5) gm/dL Hct (39.0-53.0) % Neutrophils # (1.3-7.7) k/uL Lymphocytes # (1.0-4.8) k/uL ABG pH (7.35-7.45) ABG pCO2 (35-45) mmHg ABG pO2 (83-108) mmHg ABG HCO3 (21-25) mmol/L ABG Total CO2 (19-24) mmol/L ABG O2 Saturation (94-97) % Chloride 108 H (98-107) mmol/L Carbon Dioxide 31 H (22-30) mmol/L BUN 120 H* (9-20) mg/dL Creatinine 2.78 H (0.66-1.25) mg/dL Glucose 171 H (74-99) mg/dL POC Glucose (mg/dL) 198 H 195 H (75-99) mg/dL Calcium 7.6 L (8.4-10.2) mg/dL 07/01/20 07/01/20 07/01/20 Range/Units 04:30 05:04 06:08 RBC 2.94 L (4.30-5.90) m/uL Hgb 9.3 L (13.0-17.5) gm/dL Hct 27.8 L (39.0-53.0) % Neutrophils # 9.0 H (1.3-7.7) k/uL Lymphocytes # 0.4 L (1.0-4.8) k/uL ABG pH 7.28 L (7.35-7.45) ABG pCO2 68 H (35-45) mmHg ABG pO2 71 L (83-108) mmHg ABG HCO3 32 H (21-25) mmol/L ABG Total CO2 34 H (19-24) mmol/L ABG O2 Saturation 92.6 L (94-97) % Chloride (98-107) mmol/L Carbon Dioxide (22-30) mmol/L BUN (9-20) mg/dL Creatinine (0.66-1.25) mg/dL Glucose (74-99) mg/dL POC Glucose (mg/dL) 212 H (75-99) mg/dL Calcium (8.4-10.2) mg/dL Microbiology - Last 24 Hours (Table) 06/27/20 22:24 Blood Culture - Preliminary Blood No Growth after 72 hours 06/27/20 18:31 Blood Culture - Preliminary Blood No Growth after 72 hours 06/28/20 00:40 Gram Stain - Final Sputum Sputum Culture - Final Staphylococcus aureus
--- NOTE | 2020-07-01 15:24 | P.PN ---
Subjective Progress Note Date: 07/01/20 CHIEF COMPLAINT: COVID-19 pneumonia HISTORY OF PRESENT ILLNESS: Patient is in the ICU intubated and sedated. Patient has bilateral chest tubes. Patient is status post tracheostomy and PEG tube placement. Patient is tolerating his tube feedings. Afebrile WBC 9.8 hemoglobin 9.3 PHYSICAL EXAM: VITAL SIGNS: Reviewed. GENERAL: Well-developed in no acute distress. HEENT: Head is atraumatic, normocephalic. Tracheostomy site clean dry and intact ABDOMEN: Soft. Nondistended. Nontender. PEG tube site clean dry and intact NEUROLOGIC: Intubated and sedated ASSESSMENT: 1. Acute hypoxic respiratory failure secondary to COVID-19 pneumonia and required prolonged mechanical ventilation 2. Severe protein calorie malnutrition PLAN: -Continue to titrate tube feedings -Continue ICU management -Continue supportive care Physician Housing Inspector note has been reviewed by physician. Signing provider agrees with the documented findings, assessment, and plan of care. Objective - Vital Signs Vital signs: Vital Signs Temp 97.8 F 07/01/20 12:00 Pulse 78 07/01/20 15:00 Resp 44 H 07/01/20 15:00 BP 103/60 07/01/20 14:00 Pulse Ox 91 L 07/01/20 15:00 Intake & Output 06/30/20 07/01/20 07/01/20 18:59 06:59 18:59 Intake Total 2068.815 3508.000 2122.962 Output Total 670 685 505 Balance 0737.875 9590.000 1617.962 Weight 84 kg 84 kg Intake: IV 1047 1322 1054 Cefepime 2 gm In Sodium 75 50 100 Chloride 0.9% 100 ml @ 25 mls/hr IVPB Q8HR [facility] Rx# :[id number] Dextrose 5% in Water 1, 900 1200 900 000 ml @ 100 mls/hr IV . Q10H [facility] Rx#:[id number] pressure bag 72 72 54 Intake, IV Titration 934.804 8238.000 407.962 Amount Cisatracurium 200 mg In 326.771 494.665 Sodium Chloride 0.9% 180 ml @ 1 MCG/KG/MIN 3.81 mls/hr IV .Q24H [facility] Rx#: [id number] Rocuronium 400 mg In 19.698 Sodium Chloride 0.9% 100 ml @ 5 MCG/KG/MIN 8.82 mls/hr IV .[id number] [facility] Rx #:[id number] fentaNYL (PF). 1,000 mcg 368.301 378.858 193.663 In Sodium Chloride 0.9% 80 ml @ Per Protocol IV . Q0M [facility] Rx#:[id number] propofoL 1,000 mg In 268.743 364.477 194.601 Empty Bag 1 bag @ Titrate IV .Q0M [facility] Rx#: [id number] Tube Feeding 58 348 261 Other 600 400 Output: Chest Tube Drainage 175 160 130 Chest Tube Left 60 10 40 Chest Tube Right 35 90 60 Chest Tube Right Upper 80 60 30 Urine 495 525 375 Other: Voiding Method Indwelling Catheter Indwelling Catheter Indwelling Catheter ABP, PAP, CO, CI - Last Documented Arterial Blood Pressure 137/71 - Labs CBC & Chem 7: 07/01/20 04:30 07/01/20 04:30 Labs: Abnormal Lab Results - Last 24 Hours (Table) 06/30/20 06/30/20 06/30/20 Range/Units 18:05 18:16 23:44 RBC (4.30-5.90) m/uL Hgb (13.0-17.5) gm/dL Hct (39.0-53.0) % Neutrophils # (1.3-7.7) k/uL Lymphocytes # (1.0-4.8) k/uL ABG pH 7.30 L (7.35-7.45) ABG pCO2 70 H (35-45) mmHg ABG pO2 76 L (83-108) mmHg ABG HCO3 35 H (21-25) mmol/L ABG Total CO2 37 H (19-24) mmol/L ABG O2 Saturation (94-97) % Chloride (98-107) mmol/L Carbon Dioxide (22-30) mmol/L BUN (9-20) mg/dL Creatinine (0.66-1.25) mg/dL Glucose (74-99) mg/dL POC Glucose (mg/dL) 188 H 198 H (75-99) mg/dL Calcium (8.4-10.2) mg/dL 07/01/20 07/01/20 07/01/20 Range/Units 00:33 04:30 04:30 RBC 2.94 L (4.30-5.90) m/uL Hgb 9.3 L (13.0-17.5) gm/dL Hct 27.8 L (39.0-53.0) % Neutrophils # 9.0 H (1.3-7.7) k/uL Lymphocytes # 0.4 L (1.0-4.8) k/uL ABG pH (7.35-7.45) ABG pCO2 (35-45) mmHg ABG pO2 (83-108) mmHg ABG HCO3 (21-25) mmol/L ABG Total CO2 (19-24) mmol/L ABG O2 Saturation (94-97) % Chloride 108 H (98-107) mmol/L Carbon Dioxide 31 H (22-30) mmol/L BUN 120 H* (9-20) mg/dL Creatinine 2.78 H (0.66-1.25) mg/dL Glucose 171 H (74-99) mg/dL POC Glucose (mg/dL) 195 H (75-99) mg/dL Calcium 7.6 L (8.4-10.2) mg/dL 07/01/20 07/01/20 07/01/20 Range/Units 05:04 06:08 12:03 RBC (4.30-5.90) m/uL Hgb (13.0-17.5) gm/dL Hct (39.0-53.0) % Neutrophils # (1.3-7.7) k/uL Lymphocytes # (1.0-4.8) k/uL ABG pH 7.28 L (7.35-7.45) ABG pCO2 68 H (35-45) mmHg ABG pO2 71 L (83-108) mmHg ABG HCO3 32 H (21-25) mmol/L ABG Total CO2 34 H (19-24) mmol/L ABG O2 Saturation 92.6 L (94-97) % Chloride (98-107) mmol/L Carbon Dioxide (22-30) mmol/L BUN (9-20) mg/dL Creatinine (0.66-1.25) mg/dL Glucose (74-99) mg/dL POC Glucose (mg/dL) 212 H 226 H (75-99) mg/dL Calcium (8.4-10.2) mg/dL Microbiology - Last 24 Hours (Table) 06/27/20 22:24 Blood Culture - Preliminary Blood No Growth after 72 hours 06/27/20 18:31 Blood Culture - Preliminary Blood No Growth after 72 hours
--- NOTE | 2020-07-01 15:25 | PN ---
PROGRESS NOTE DATE OF SERVICE: 07/01/2020. REASON FOR FOLLOWUP: Pneumonia. INTERVAL HISTORY: The patient is currently afebrile. The patient is hemodynamically stable not on any pressor support. FiO2 is trending down to 60%. No purulent secretions through the ET or any diarrhea. PHYSICAL EXAMINATION: Blood pressure 131/69 with a pulse of 77, temperature 97.8. He is 91% on 60% FiO2. General description is a middle-aged male lying in bed in no distress. RESPIRATORY SYSTEM: Unlabored breathing, clear to auscultation anteriorly. HEART: S1, S2. Regular rate and rhythm. ABDOMEN: Soft, no tenderness. LABS: Hemoglobin 9.3, white count 9.8. BUN of 120, creatinine 2.78. DIAGNOSTIC IMPRESSION AND PLAN: Patient with acute respiratory failure which is multifactorial in this patient did have a component of pneumonia. Sputum has been MSSA, Moraxella, covered with cefepime. White count normalized, did have worsening of the white count, need to monitor closely. Continue supportive care. MMODL / IJN: [id number] /
--- NOTE | 2020-07-01 15:44 | P.PN ---
Subjective Progress Note Date: 07/01/20 Principal diagnosis: Acute COVID-19 pneumonia, pneumomediastinum, extensive subcutaneous emphysema, acute hypoxic respiratory failure, elevated inflammatory markers secondary to Co vid-19, leukocytosis, thrombocytopenia, hypotension post intubation, respiratory acidosis POD #11 placement of bilateral chest tubes by Dr. Dominique. POD #3 placement of second right pleural chest tube by Dr. Henry. POD #2 tracheostomy and peg tube placement by Dr. Apodaca. The patient was seen in follow-up today 07/01/2020 at his bedside in the intensive care unit. His tracheostomy tube remains midline and intact, he remains on mechanical ventilator support with mechanical ventilator settings assist control 34, TV 400, FiO2 60% and a PEEP of 18. Oxygen saturation on current mechanical ventilator settings are 91%. Left pleural chest tube remains to low continuous wall suction -20 cm H2O. No air leak is present. Draining thin serosanguineous scant drainage. Right pleural chest tubes remained to low continuous wall suction -20 cm H2O. Positive continuous air leak to one of his right pleural chest tubes. Scant thin serosanguineous drainage from both the right pleural chest tubes. He remains on cefepime for antibiotic coverage for positive sputum culture showing Moraxella. He remains afebrile the last 24 hours. He remains sedated and paralyzed with fentanyl drip, propofol drip and rocuronium drip. Left subclavian triple-lumen remains intact and functioning. Subcutaneous emphysema resolved and his chest x-ray this morning shows no sizable pneumothorax. Objective - Vital Signs Vital signs: Vital Signs Temp 97.8 F 07/01/20 12:00 Pulse 78 07/01/20 15:00 Resp 44 H 07/01/20 15:00 BP 103/60 07/01/20 14:00 Pulse Ox 91 L 07/01/20 15:00 Intake & Output 06/30/20 07/01/20 07/01/20 18:59 06:59 18:59 Intake Total 2068.815 3508.000 2122.962 Output Total 670 685 505 Balance 5773.025 6713.000 1617.962 Weight 84 kg 84 kg Intake: IV 1047 1322 1054 Cefepime 2 gm In Sodium 75 50 100 Chloride 0.9% 100 ml @ 25 mls/hr IVPB Q8HR [facility] Rx# :[id number] Dextrose 5% in Water 1, 900 1200 900 000 ml @ 100 mls/hr IV . Q10H [facility] Rx#:[id number] pressure bag 72 72 54 Intake, IV Titration 682.480 9118.000 407.962 Amount Cisatracurium 200 mg In 326.771 494.665 Sodium Chloride 0.9% 180 ml @ 1 MCG/KG/MIN 3.81 mls/hr IV .Q24H [facility] Rx#: [id number] Rocuronium 400 mg In 19.698 Sodium Chloride 0.9% 100 ml @ 5 MCG/KG/MIN 8.82 mls/hr IV .[id number] [facility] Rx #:[id number] fentaNYL (PF). 1,000 mcg 368.301 378.858 193.663 In Sodium Chloride 0.9% 80 ml @ Per Protocol IV . Q0M [facility] Rx#:[id number] propofoL 1,000 mg In 268.743 364.477 194.601 Empty Bag 1 bag @ Titrate IV .Q0M [facility] Rx#: [id number] Tube Feeding 58 348 261 Other 600 400 Output: Chest Tube Drainage 175 160 130 Chest Tube Left 60 10 40 Chest Tube Right 35 90 60 Chest Tube Right Upper 80 60 30 Urine 495 525 375 Other: Voiding Method Indwelling Catheter Indwelling Catheter Indwelling Catheter ABP, PAP, CO, CI - Last Documented Arterial Blood Pressure 137/71 - Exam CONSTITUTIONAL: Remains sedated and paralyzed , tracheostomy is midline and intact with mechanical ventilation support. EYES: Subcutaneous emphysema resolved both eyes. ENT: Moist mucous membranes without oral lesions present. NECK: No masses, no bruits, trachea midline, #8 Bivona tracheostomy midline and intact. RESPIRATORY: Lungs sounds diminished and coarse scattered rhonchi to auscultation bilaterally. Currently on mechanical ventilation, assist control mode, FiO2 60%, PEEP 18, tidal volume 400, respiratory rate 34. Subcutaneous emphysema resolved to his upper chest and neck. CARDIOVASCULAR: S1, S2 present. Regular rate and rhythm, normal sinus rhythm on telemetry with heart rate 78 BPM. Palpable peripheral pulses bilaterally. Bilateral SCDs present. GASTROINTESTINAL: Abdomen soft, nondistended without masses or organomegaly noted. Active bowel sounds present 4 quadrants. PEG tube present, with tube feedings Nepro at 29 mL per hour which is goal rate and automatic water flushes. GENITOURINARY: Indwelling catheter present draining clear, yellow urine. Urine output 30-65mL/hr. INTEGUMENTARY: Skin is warm and dry. NEUROLOGIC: Unable to assess as patient is currently receiving IV paralytic. Train of 4 per nursing. INVASIVE LINES/TUBES: Left subclavian triple lumen central line present. Right pleural chest tubes x 2 and left pleural chest tube present, continuous air leak noted in second right chest tube, no air leak present in left chest tube, scant serosanguineous drainage. - Labs CBC & Chem 7: 07/01/20 04:30 07/01/20 04:30 Labs: Abnormal Lab Results - Last 24 Hours (Table) 06/30/20 06/30/20 06/30/20 Range/Units 18:05 18:16 23:44 RBC (4.30-5.90) m/uL Hgb (13.0-17.5) gm/dL Hct (39.0-53.0) % Neutrophils # (1.3-7.7) k/uL Lymphocytes # (1.0-4.8) k/uL ABG pH 7.30 L (7.35-7.45) ABG pCO2 70 H (35-45) mmHg ABG pO2 76 L (83-108) mmHg ABG HCO3 35 H (21-25) mmol/L ABG Total CO2 37 H (19-24) mmol/L ABG O2 Saturation (94-97) % Chloride (98-107) mmol/L Carbon Dioxide (22-30) mmol/L BUN (9-20) mg/dL Creatinine (0.66-1.25) mg/dL Glucose (74-99) mg/dL POC Glucose (mg/dL) 188 H 198 H (75-99) mg/dL Calcium (8.4-10.2) mg/dL 07/01/20 07/01/20 07/01/20 Range/Units 00:33 04: 04:30 RBC 2.94 L (4.30-5.90) m/uL Hgb 9.3 L (13.0-17.5) gm/dL Hct 27.8 L (39.0-53.0) % Neutrophils # 9.0 H (1.3-7.7) k/uL Lymphocytes # 0.4 L (1.0-4.8) k/uL ABG pH (7.35-7.45) ABG pCO2 (35-45) mmHg ABG pO2 (83-108) mmHg ABG HCO3 (21-25) mmol/L ABG Total CO2 (19-24) mmol/L ABG O2 Saturation (94-97) % Chloride 108 H (98-107) mmol/L Carbon Dioxide 31 H (22-30) mmol/L BUN 120 H* (9-20) mg/dL Creatinine 2.78 H (0.66-1.25) mg/dL Glucose 171 H (74-99) mg/dL POC Glucose (mg/dL) 195 H (75-99) mg/dL Calcium 7.6 L (8.4-10.2) mg/dL 07/01/20 07/01/20 07/01/20 Range/Units 05:04 06:08 12:03 RBC (4.30-5.90) m/uL Hgb (13.0-17.5) gm/dL Hct (39.0-53.0) % Neutrophils # (1.3-7.7) k/uL Lymphocytes # (1.0-4.8) k/uL ABG pH 7.28 L (7.35-7.45) ABG pCO2 68 H (35-45) mmHg ABG pO2 71 L (83-108) mmHg ABG HCO3 32 H (21-25) mmol/L ABG Total CO2 34 H (19-24) mmol/L ABG O2 Saturation 92.6 L (94-97) % Chloride (98-107) mmol/L Carbon Dioxide (22-30) mmol/L BUN (9-20) mg/dL Creatinine (0.66-1.25) mg/dL Glucose (74-99) mg/dL POC Glucose (mg/dL) 212 H 226 H (75-99) mg/dL Calcium (8.4-10.2) mg/dL Microbiology - Last 24 Hours (Table) 06/27/20 22:24 Blood Culture - Preliminary Blood No Growth after 72 hours 06/27/20 18:31 Blood Culture - Preliminary Blood No Growth after 72 hours Assessment and Plan Assessment: 1. Acute COVID-19 pneumonia 2. Pneumomediastinum, extensive subcutaneous emphysema, status post placement of right and left pleural chest tubes by pulmonology, S/P placement of 14g angiocath to left neck 3. Acute hypoxic respiratory failure, remains on mechanical ventilation, status post tracheostomy placement 4. Elevated inflammatory markers secondary to Covid 5. Leukocytosis, febrile, sputum culture from 06/21/20 growing MSSA and morexella 6. Thrombocytopenia, resolved 6. Hypotension post intubation, currently normotensive on no pressors 7. Respiratory acidosis Plan: 1. Continue chest tubes to continuous low wall suction, monitor for resolution of subcutaneous emphysema, and airleak. No plans to removal of chest tubes at this time patient remains with mechanical ventilator support and high PEEP. 2. Mechanical ventilation, sedation, paralytic, antibiotics, covid managment per pulmonary/critical care medicine recommendations. 3. No thoracic surgery is warranted at this time. 4. GI/DVT prophylaxis. 5. Will continue to monitor daily chest x-rays. 6. Patient remains critically ill with poor prognosis, more recommendations to follow based on patient's clinical course. Time with Patient: Less than 30
[2020-07-01 17:46] LABS: Glucose,Whole Blood 204 mg/dL (75-99)
[2020-07-01] MEDS: CLEVIDIPINE BUTYRATE 25 MG in EMPTY BAG 1 BAG IV SCH (18:34)
[2020-07-01 23:47] LABS: Glucose,Whole Blood 212 mg/dL (75-99)
[2020-07-02] MEDS: fentaNYL (PF). 1,000 MCG in SODIUM CHLORIDE 0.9% 80 ML IV SCH ×8 (00:30→22:22)
[2020-07-02] MEDS: DEXTROSE 5% IN WATER 1,000 ML IV SCH ×3 (02:48→21:51)
[2020-07-02] MEDS: ROCURONIUM 400 MG in SODIUM CHLORIDE 0.9% 100 ML IV SCH ×2 (02:59→20:21)
[2020-07-02 04:38] LABS: Basophils % (A) 0 %; Eosinophils % (A) 0 %; HCT 27.9 % (39.0-53.0); HGB 8.8 gm/dL (13.0-17.5); Hypochromasia Slight; Lymphocytes # (A) 0.4 k/uL (1.0-4.8); Lymphocytes % (A) 5 %; MCHC 31.6 g/dL (31.0-37.0); MCV 94.7 fL (80.0-100.0); Mean Platelet Volume 11.5; Monocytes # (A) 0.3 k/uL (0-1.0); Monocytes % (A) 4 %; Neutrophils # (A) 6.4 k/uL (1.3-7.7); Neutrophils % (A) 89 %; Platelet Count 228 k/uL (150-450); RBC 2.94 m/uL (4.30-5.90); RDW 15.2 % (11.5-15.5); WBC 7.2 k/uL (3.8-10.6)
[2020-07-02] MEDS: ARTIFICIAL TEARS-HYPROMELLOSE DROPS 15 ML BTL BOTH EYES SCH ×5 (04:50→20:22)
[2020-07-02 05:02] LABS: Albumin 2.4 g/dL (3.5-5.0); Calcium 7.4 mg/dL (8.4-10.2); Total Bilirubin 0.6 mg/dL (0.2-1.3); Total Protein 5.3 g/dL (6.3-8.2)
[2020-07-02 05:13] LABS: ABG Base Excess -0.1 mmol/L; ABG HCO3 27 mmol/L (21-25); ABG Oxygen Saturation 91.9 % (94-97); ABG PCO2 64 mmHg (35-45); ABG PH 7.24 (7.35-7.45); ABG PO2 71 mmHg (83-108); ABG TCO2 29 mmol/L (19-24)
[2020-07-02 05:14] LABS: Allen Test Performed? NO
[2020-07-02] MEDS: methylPREDNISolone SOD SUCCI 125 MG/2 ML VIAL IV SCH ×3 (05:40→18:28)
[2020-07-02] MEDS: INSULIN ASPART (NovoLOG) 100 UNIT/ML VIAL SQ SCH ×3 (05:59→18:28)
--- NOTE | 2020-07-02 06:57 | XR ---
EXAMINATION TYPE: XR chest 1V portable DATE OF EXAM: 07/02/2020 COMPARISON: 07/01/2020 HISTORY: Pneumothorax follow-up TECHNIQUE: Single frontal view of the chest is obtained. FINDINGS: There are 2 chest tubes on the right and one in the left all unchanged in position. There is a tracheostomy tube. There is a central venous catheter the tip of which is in the SVC/RA junction . There are diffuse partially consolidative opacities in the mid lower lung zones unchanged compared to the prior study. Heart size mediastinum are normal. The osseous structures are intact IMPRESSION: No change in the lung infiltrates, chest tubes and central line. There is no pneumothora x.
[2020-07-02] MEDS: ASCORBIC ACID 500 MG TAB PO SCH (07:47)
[2020-07-02] MEDS: PANTOPRAZOLE 40 MG/10 ML VIAL IVP SCH (07:47)
[2020-07-02] MEDS: ZINC SULFATE 220 MG CAP PO SCH (07:47)
[2020-07-02] MEDS: CHLORHEXIDINE GLUCONATE 15 ML CUP MUCOUS MEM SCH ×2 (07:47→20:25)
[2020-07-02] MEDS: LACTULOSE 20 GM/30 ML CUP PO SCH ×2 (07:47→20:25)
[2020-07-02] MEDS: CHOLECALCIFEROL 25 MCG (1000 IU) TABLET PO SCH (07:47)
[2020-07-02] MEDS: CEFEPIME 2 GM in SODIUM CHLORIDE 0.9% 100 ML IVPB SCH (07:48)
--- NOTE | 2020-07-02 09:04 | P.PN ---
Subjective Progress Note Date: 07/02/20 Principal diagnosis: Acute COVID-19 pneumonia, pneumomediastinum, extensive subcutaneous emphysema, acute hypoxic respiratory failure, elevated inflammatory markers secondary to Co vid-19, leukocytosis, thrombocytopenia, hypotension post intubation, respiratory acidosis POD #12 placement of bilateral chest tubes by Dr. Dominique. POD #4 placement of second right pleural chest tube by Dr. Henry. POD #3 tracheostomy and peg tube placement by Dr. Apodaca. The patient was seen in follow-up today 07/02/2020 at his bedside in the intensive care unit. His tracheostomy tube remains midline and intact with mechanical ventilator support, current mechanical ventilator settings are as follows, assist control 34, TV 400, FiO2 50% and a PEEP of 18. Oxygen saturations 89% on current mechanical dilators settings. Left pleural chest tube remains in place to low continuous wall suction -20 cm H2O. No air leak is present. Draining thin serosanguineous drainage. Right pleural chest tubes remain in place to low continuous wall suction -20 cm H2O. Continuous air leak present to the most recently placed right pleural chest tube. Draining thin scant serosanguineous drainage. Laboratory results this morning show a WBC count 7.2, hemoglobin 8.8, hematocrit 27.9, platelets 228, d-dimer 2.58, BUN 134, creatinine 3.19, LDH 1593, C-reactive protein 21.0 and his ABG results show a pH of 7.24, pCO2 64, PaO2 71, HCO3 27, oxygen saturation 91.9 and base excess -0.1. Final sputum culture results showed Moraxella and he continues on antibiotic coverage with cefepime. He remains sedated and paralyzed with fentanyl drip, propofol and Zemuron. Chest x-ray report from this morning shows no change in the lung infiltrates and no pneumothorax appreciated. Objective - Vital Signs Vital signs: Vital Signs Temp 98 F 07/02/20 08:00 Pulse 57 L 07/02/20 08:00 Resp 34 H 07/02/20 08:00 BP 103/60 07/01/20 14:00 Pulse Ox 88 L 07/02/20 08:00 Intake & Output 07/01/20 07/02/20 07/02/20 18:59 06:59 18:59 Intake Total 3367.214 2847.817 369.321 Output Total 850 1160 210 Balance 2517.214 1687.817 159.321 Weight 84 kg 82 kg Intake: IV 1478 1274 212 Cefepime 2 gm In Sodium 100 100 Chloride 0.9% 100 ml @ 25 mls/hr IVPB Q8HR [facility] Rx# :[id number] Dextrose 5% in Water 1, 1300 1100 200 000 ml @ 100 mls/hr IV . Q10H [facility] Rx#:[id number] pressure bag 78 74 12 Intake, IV Titration 912.214 824.817 69.321 Amount Rocuronium 400 mg In 123.950 153.495 Sodium Chloride 0.9% 100 ml @ 5 MCG/KG/MIN 8.82 mls/hr IV .[id number] [facility] Rx #:[id number] fentaNYL (PF). 1,000 mcg 393.663 340.254 69.321 In Sodium Chloride 0.9% 80 ml @ Per Protocol IV . Q0M [facility] Rx#:[id number] propofoL 1,000 mg In 394.601 331.068 Empty Bag 1 bag @ Titrate IV .Q0M [facility] Rx#: [id number] Tube Feeding 377 319 58 Other 600 430 30 Output: Chest Tube Drainage 300 330 35 Chest Tube Left 40 90 20 Chest Tube Right 130 120 10 Chest Tube Right Upper 130 120 5 Urine 550 830 175 Other: Voiding Method Indwelling Catheter Indwelling Catheter Indwelling Catheter ABP, PAP, CO, CI - Last Documented Arterial Blood Pressure 148/75 - Exam CONSTITUTIONAL: Remains sedated and paralyzed , tracheostomy is midline and intact with mechanical ventilation support. EYES: Subcutaneous emphysema resolved both eyes. ENT: Moist mucous membranes without oral lesions present. NECK: No masses, no bruits, trachea midline, #8 Bivona tracheostomy midline and intact. RESPIRATORY: Lungs sounds diminished and coarse scattered rhonchi to auscultation bilaterally. Currently on mechanical ventilation, assist control mode, FiO2 50%, PEEP 18, tidal volume 400, respiratory rate 34. Subcutaneous emphysema resolved to his upper chest and neck. CARDIOVASCULAR: S1, S2 present. Regular rate and rhythm, normal sinus rhythm on telemetry with heart rate 80 BPM. Palpable peripheral pulses bilaterally. Bilateral SCDs present. GASTROINTESTINAL: Abdomen soft, nondistended without masses or organomegaly no jerardo. Active bowel sounds present 4 quadrants. PEG tube present, with tube feedings Nepro at 29 mL per hour which is goal rate, with automatic water flushes. GENITOURINARY: Indwelling catheter present draining clear, yellow urine. Urine output 50-125mL/hr. INTEGUMENTARY: Skin is warm and dry. NEUROLOGIC: Unable to assess as patient is currently receiving IV paralytic. Train of 4 per nursing. INVASIVE LINES/TUBES: Left subclavian triple lumen central line present. Right pleural chest tubes x 2 and left pleural chest tube present, continuous air leak noted in second right chest tube, no air leak present in left chest tube, scant serosanguineous drainage. - Labs CBC & Chem 7: 07/02/20 04:30 07/02/20 04:30 Labs: Abnormal Lab Results - Last 24 Hours (Table) 07/01/20 07/01/20 07/01/20 Range/Units 12:03 17:45 23:45 RBC (4.30-5.90) m/uL Hgb (13.0-17.5) gm/dL Hct (39.0-53.0) % Lymphocytes # (1.0-4.8) k/uL D-Dimer (<0.60) mg/L FEU ABG pH (7.35-7.45) ABG pCO2 (35-45) mmHg ABG pO2 (83-108) mmHg ABG HCO3 (21-25) mmol/L ABG Total CO2 (19-24) mmol/L ABG O2 Saturation (94-97) % BUN (9-20) mg/dL Creatinine (0.66-1.25) mg/dL Glucose (74-99) mg/dL POC Glucose (mg/dL) 226 H 204 H 212 H (75-99) mg/dL Calcium (8.4-10.2) mg/dL Lactate Dehydrogenase (313-618) U/L C-Reactive Protein (<1.0) mg/dL Total Protein (6.3-8.2) g/dL Albumin (3.5-5.0) g/dL 07/02/20 07/02/20 07/02/20 Range/Units 04:30 04:30 04:30 RBC 2.94 L (4.30-5.90) m/uL Hgb 8.8 L (13.0-17.5) gm/dL Hct 27.9 L (39.0-53.0) % Lymphocytes # 0.4 L (1.0-4.8) k/uL D-Dimer 2.58 H (<0.60) mg/L FEU ABG pH (7.35-7.45) ABG pCO2 (35-45) mmHg ABG pO2 (83-108) mmHg ABG HCO3 (21-25) mmol/L ABG Total CO2 (19-24) mmol/L ABG O2 Saturation (94-97) % BUN 134 H* (9-20) mg/dL Creatinine 3.19 H (0.66-1.25) mg/dL Glucose 204 H (74-99) mg/dL POC Glucose (mg/dL) (75-99) mg/dL Calcium 7.4 L (8.4-10.2) mg/dL Lactate Dehydrogenase 1593 H (313-618) U/L C-Reactive Protein 21.0 H (<1.0) mg/dL Total Protein 5.3 L (6.3-8.2) g/dL Albumin 2.4 L (3.5-5.0) g/dL 07/02/20 Range/Units 05:06 RBC (4.30-5.90) m/uL Hgb (13.0-17.5) gm/dL Hct (39.0-53.0) % Lymphocytes # (1.0-4.8) k/uL D-Dimer (<0.60) mg/L FEU ABG pH 7.24 L (7.35-7.45) ABG pCO2 64 H (35-45) mmHg ABG pO2 71 L (83-108) mmHg ABG HCO3 27 H (21-25) mmol/L ABG Total CO2 29 H (19-24) mmol/L ABG O2 Saturation 91.9 L (94-97) % BUN (9-20) mg/dL Creatinine (0.66-1.25) mg/dL Glucose (74-99) mg/dL POC Glucose (mg/dL) (75-99) mg/dL Calcium (8.4-10.2) mg/dL Lactate Dehydrogenase (313-618) U/L C-Reactive Protein (<1.0) mg/dL Total Protein (6.3-8.2) g/dL Albumin (3.5-5.0) g/dL Microbiology - Last 24 Hours (Table) 06/27/20 22:24 Blood Culture - Preliminary Blood No Growth after 96 hours 06/27/20 18:31 Blood Culture - Preliminary Blood No Growth after 96 hours Assessment and Plan Assessment: 1. Acute COVID-19 pneumonia 2. Pneumomediastinum, extensive subcutaneous emphysema, status post placement of right and left pleural chest tubes by pulmonology, S/P placement of 14g angiocath to left neck 3. Acute hypoxic respiratory failure, remains on mechanical ventilation, status post tracheostomy placement 4. Elevated inflammatory markers secondary to Covid 5. Leukocytosis, febrile, sputum culture from 06/21/20 growing MSSA and morexella 6. Thrombocytopenia, resolved 6. Hypotension post intubation, currently normotensive on no pressors 7. Respiratory acidosis Plan: 1. Continue chest tubes to continuous low wall suction, monitor for resolution of airleak. No plans to removal of chest tubes at this time patient remains with mechanical ventilator support and high PEEP. 2. Mechanical ventilation, sedation, paralytic, antibiotics, covid managment per pulmonary/critical care medicine recommendations. 3. No thoracic surgery is warranted at this time. 4. GI/DVT prophylaxis. 5. Will continue to monitor daily chest x-rays. 6. Patient remains critically ill with poor prognosis. 7. More recommendations to follow based on patient's clinical course. Time with Patient: Less than 30
[2020-07-02] MEDS ORDERED: POTASSIUM CHLORIDE 10 MEQ in WATER FOR INJECTION 1 100ML.BAG IVPB SCH (10:00)
[2020-07-02] MEDS ORDERED: FUROSEMIDE 10 MG/ML 4 ML VIAL IV SCH (10:00)
--- NOTE | 2020-07-02 10:05 | P.PN ---
Subjective Progress Note Date: 07/02/20 HISTORY OF PRESENT ILLNESS This is a 55-year-old male patient of Dr. Maxwell Alexander with significant past medical history. Patient states he started having symptoms on June 01 and was diagnosed with COVID-19 on June 08. Patient symptoms or body aches and fatigue as well as cough with white sputum production, increasing shortness of breath and measured pulse ox at home which worsened. He complains of headache chills and nausea. Patient presented to [facility] emergency center for evaluation. Patient was afebrile, heart rate 101, blood pressure 114/75, pulse ox 86% on room air. WBC 6.4, hemoglobin 16.2, platelet count 153. D-dimer 0.84. AST 106, ALT 44, alkaline phosphatase 57, LDH 2547. CRP 150. Sodium 129, potassium 4.6, chloride 97, CO2 23, BUN 12 and creatinine 0.84. Blood sugar 114. Chest x-ray reveals extensive pulmonary infiltrates related to pneumonia and ARDS. CTA of the chest reveals no pulmonary embolism. Patchy areas of nodular consolidations in the bilateral lower lobes with groundglass consolidation of the peripheral of the bilateral upper lobes consistent with multifocal infection compatible with Covid pneumonia. No pleural effusions or pneumothorax. Patient has been seen by pulmonary medicine is not a candidate fo r Remdesivir. Convalescent plasma has been ordered as well as Tocilizumab 1 dose. Patient is currently pulse ox 95% on 15 L nonrebreather. 06/15: Repeat chest x-ray reveals worsening infiltrates. Patient is currently on nonrebreather and nasal cannula with pulse ox of 89%. Patient states that he is not sleeping because of coughing. He continues to have cough, shortness of breath. Noted to be tachypneic. Patient states he is eating okay. Melatonin, Flonase and Tessalon Perles added. Patient has been afebrile, heart rate 87, respiratory rate 32, blood pressure 112/70. Repeat blood work reveals WBC 11.4, hemoglobin 15.4, platelet count 208. D-dimer 0.95. Sodium 136 other electrolyt es and renal function normal. Blood sugar 118. AST 96, ALT 67, alkaline phosphatase 70. LDH 2884. C-reactive protein 59.4. 06/16: Patient's pulse ox is 90-92% on high flow nasal cannula at 13 L along with 100% nonrebreather. Patient was seen by Dr. Kern plan is to try and wean off 100% oxygen. Patient states that his breathing is stable today. He continues to have shortness of breath with minimal activity and cough. Patient started on mycelex noemi for thrush. He has been afebrile, heart rate 80, blood pressure 114/69. Repeat chest x-ray reveals improving bilateral lung infiltrat es. Patient is continued on dexamethasone, Lovenox and vitamin supplements. 06/17: Yesterday afternoon, received call the patient had subcutaneous emphysema that was new and stat chest x-ray was ordered. This revealed interval development of subcutaneous emphysema within the bilateral neck. Some pneumo mediastinum may be present as the source. Pneumothorax is identified. This was reviewed by Dr. Kern at the time. Last evening at 2200, A-Team was called for puffiness of the neck and shoulder skin. Repeat chest x-ray revealed prominent interval increase in subcutaneous emphysema pattern. Patient was transferred to the intensive care unit. Patient has been seen in the intensive care unit today. He remains on 15 L high flow nasal cannula in addition to 100% nonrebreather facemask. D-dimer is 17.6, LDH 533. Patient remains on Decadron, Lovenox and supplements. Promethazine was added for cough suppression. Subcutaneous emphysema is stable. 06/18 patient evaluated bedside has worsening subcutaneous emphysema. Does appear anxious on examination. He is on Xanax to 0.25 mg twice a day with no improvement in patient's and slightly. We'll repeat chest x-ray does suggest tiny pneumothorax in addition to subcutaneous emphysema. Patient is currently maintaining oxygen saturation on interval 60 L with FiO2 of 90% with a nonrebreather 100%. Minimum exertion is causing desaturation. Patient appears to have worsening inflammation markers including worsening LDH and liver e nzymes. Pulmonary care for management of the Covid. Continues to keep patient on dexamethasone, convalescent plasma. Patient is not a candidate for remdesivir. We will start patient on Lexapro 10 mg daily at bedtime to help with anxiety. IV fluids switch to D5NS as patient is not eating being on mask and is hungry. 06/19 patient evaluated bedside has worsening subcutaneous emphysema, facial swelling and pneumomediastinum. Patient is alert and keeping saturation 90-92% on BiPAP. He appears anxious and is breathing at 26 respiratory rate per minute. Blood pressure 1:30/74 heart rate of 113.chest x-rays consistent with bilateral subcutaneous emphysema and pneumomediastinum any apical pneumothorax dizzy and chest tube at this point. On evaluation patient's labs patient's leukocytosis and 19 sodium stable at 1:30, creatinine 0.67 and ferritin is 3144 elevated liver enzymes early at 7846 increased from prior low albumin. patient continues to have increased in size the despite initiation of Remeron will increase Remeron to 30 mg at bedtime Xanax increased to 0.5 twice a day fr om 0.25. Ativan can be given if patient is unable to tolerate oral medication. Plan to start patient on TPN tomorrow. Low sodium could be a results of D5W 06/20: Repeat blood work reveals WBC 29.6, hemoglobin 17, platelet count 124. D- dimer greater than 35. Sodium 132, potassium 5.4, chloride 95, CO2 31, BUN 28 creatinine 0.75. Blood sugar 162. AST 131, ALT 92, alkaline phosphatase 310. LDH 9901. CK 501. C-reactive protein 3.7. Patient became more hypoxic during the night with pulse ox down to the low 70s with mental status changes. Patient was intubated and placed on mechanical ventilation. Tidal volume 400, FiO2 of 75% and PEEP of 18. He is on propofol, Nimbex, levo fed was started and he is status post 2 L of IV fluid. He has on a fentanyl drip. Patient has extensive subcutaneous emphysema. Remeron and clotrimazole discontinued 06/21: Patient remains intubated and on mechanical ventilation. Tidal volume 400, FiO2 decreased from 85-80% this morning, PEEP 16. Patient had bilateral chest tubes placed for pneumothorax bilaterally. This was done last evening. Patient is currently on Nimbex, fentanyl, levo fed. He is on tube feedings at goal. Temperature max 100.2, heart rate 107, respiratory rate 33, blood pressure 118/62, pulse ox 90% with goal to keep above 85%. Repeat blood work reveals WBC 15.9, hemoglobin 14.6, platelet count 96. Sodium 137, potassium 5.1, chloride 100, CO2 39, BUN 26 and creatinine 0.69. Phosphorus 7.3. Magnesium 3.0. Total bilirubin 0.7, AST 59, ALT 61, alkaline phosphatase 190. D-dimer 14.6. LDH 3891. CK 902. C-reactive protein 4.1. Repeat chest x-ray reveals persistent severe bilateral subcutaneous emphysema limiting assessment. Underlying groundglass changes persist. Bilateral chest tubes. Right apical pneumothorax smaller 6 mm versus 2 cm previously. Left apical pneumothorax no longer seen. Better demonstrated pneumomediastinum though suspected to have decreased compared to prior exam. Patient does have less subcutaneous emphysema. 06/22: She remains intubated and on mechanical ventilation with tidal volume 400, FiO2 was 100% this morning and decrease to 70, PEEP is 20. Patient is on propofol and fentanyl as well as Nimbex and bicarb drip. He is not on norepinephrine. Patient is on tube feedings at goal. He remains with bilateral chest tubes in place, no air leak. He has been afebrile, heart rate 108, respiratory rate 34, a pressure 108/61, pulse ox is 90%. Repeat blood work reveals WBC 20, hemoglobin 13.7. D-dimer 10.74. CO2 42, BUN 31 creatinine 0.63. Blood sugars running between 130s to 177. Repeat chest x-ray reveals stable findings. patient remains intubated with a tidal volume of 400 FiO2 of 65% PEEP 20. Patient continues to remain sedated and paralyzed on propofol, fentanyl Precedex and Pneumovax. Continues to have chest tubes with slight air leaks noted. Pratibha st x-ray continues to remain the same with bilateral patchy infiltrate and subcutaneous emphysema. Vitals this morning suggests tachycardia 120 respiratory rate 34 saturating 90% on 65% FiO2 blood pressure 128/71 labs suggestive leukocytosis of 17.6 hemoglobin 12.9 ABG drawn at this morning suggests a pH of 7.3 pCO2 86 pO2 77 bicarb 50. Patient's LDH is 12,748. CRP 7. 06/24 patient remains intubated and mechanically ventilated sedated and paralyzed on assist control with a tidal volume of 400 FiO2 60% PEEP on 20 respiratory rate of 14. ABG done this morning suggests a pO2 of 75 pCO2 83. 7.39. Patient continues to remain on propofol and Pneumovax and fentanyl. The bicarb drip discontinued. 10 chest x-ray shows bilateral subcutaneous emphysema with bilateral patchy infiltrates. Concern for small right apical pneumothorax measuring 1.2 cm versus 9 mm previously. Patient continues to have bilateral chest tubes, minimally leak noted in the right-sided chest tube. No air leak on the left-sided chest tube. Patient remains on enteral feeding. In assessment of patient's blood work slight improvement in CRP noted at 4.7H improved to 2733 liver enzymes continue to rise with AST of 90 ALT 105 alkaline phosphatase 2:30. Bicarb increased to 48. Bicarb drip discontinued. Potassium is noted to be high. One dose of Kayexalate ordered 06/25: Patient remains intubated and mechanically ventilated sedated on pressors on assist control and tidal volume of 400 FiO2 PEEP of 20. Respirations of 14. Patient continues to remain on propofol and Pneumovax and fentanyl. The bicarb drip has been discontinued. Today's chest x-ray shows bilateral subcutaneous emphysema bilateral patchy infiltrates they're similar to the prior exam. Patient continues to have bilateral chest tubes. A 14 Angiocath was inserted into his neck to help relieve subcutaneous emphysema. Patient remains on enternal feeding. WCC 60.4, hemoglobin 12.1, platelets 159, potassium 5.1, BUN 48, creatinine 0.63. ABG pH 7.38, pCO2 87, pO2 61, HCO3 51, ABG O2 sat 91. 06/26: Maintained intubated and mechanically ventilated sedated and paralyzed on assist control with FiO2 on 65% and a PEEP of 18. WBC 17, hemoglobin 11.6, potassium 5.3, BUN 48, creatinine 0.64 d-dimer 3.67,. Temperature 99.9. Patient continues to remain on propofol and Pneumovax and fentanyl. Chest x-ray findings similar to prior exam. Angiocath to the left subclavian to help with subcutaneous emphysema. Substance emphysema is improved compared to yesterday with less edema to face and neck. Patient remains on enternal feeding. Bilateral chest tubes in place and draining. 06/27: Patient remain intubated and sedated still required high FiO2 with higher PEEP to keep his pulse ox above 90 percentile. Patient subcutaneous emphysema slightly but better today there is no more swelling and eyelid this point. Patient still sedated. Patient will be going for trach and PEG tube tomorrow, patient probably will require longer term vent management. 06/28: Patient remains in the ICU, still intubated and sedated bilateral chest tubes in place with intermittent air leaks to the right chest tube. He continues on cefepime for positive cultures for MSSA and moraxella. Subcutaneous emphysema status post placement of 14-gauge Angiocath to left neck has improved. He will be going for tracheostomy and PEG tube placement today. Bicarbonate drip was discontinued due to hyponatremia and he was started on D5W. 06/29: A shunt underwent PEG tube and trach placement today. He also had a second right-sided chest tube placed by Dr. manuel last night. Patient now has 2 chest tubes on the right and one on the left. He remains on mechanical ventilation with tidal volume 500, FiO2 70, PEEP of 18. He has been afebrile for 24 hours. Heart rate 101, respiratory rate 36, blood pressure 100/61, pulse ox 96%. WBC 12.7, hemoglobin 10.3, platelet count 139. Sodium 150, potassium 4.6, chloride 107, CO2 42, BUN 83 and creatinine of 1.27. Blood sugars running between 121-168. 06/30: Patient remains in the intensive care unit status post tracheostomy and PEG tube placement yesterday by Dr. Apodaca. Tracheostomy tube remains intact and midline. She remains on ventilator with assist control 34, tidal volume 400, FiO2 70% and PEEP of 18. Oxygen saturation on current mechanical ventilator settings are 89%. He has one left pleural chest tube and 2 right pleural chest tubes. Continuous air leak to one of the right pleural chest tubes. Draining thin scant serosanguineous drainage. Chest x-ray this morning shows resolution of the right-sided pneumothorax. Sputum culture was positive for MSSA, Moraxella and is currently on cefepime and vancomycin. Urine output has been 30-60 mL per hour. Remains on fentanyl drip, propofol drip and Nimbex drip. Repeat blood work reveals WBC 9.3, hemoglobin 9.5, platelet count 152. Sodium 149, potassium 4.5, chloride 111, CO2 38, BUN 94, creatinine 1.97. Blood sugar 114. Patient is currently on dextrose 5%. 07/01: Patient remains with mechanical ventilation with tidal volume 400, FiO2 70% and PEEP of 18, assist control mode of 34. He remains with 2 right-sided chest tubes in 1 left-sided. There is largely on the right-sided chest tube. Repeat chest x-ray reveals bilateral airspace infiltrates persist greatest on the right lung base. No sizable pneumothorax seen at this time. He has been afebrile, heart rate 75, respiratory rate 42, blood pressure 134/70, pulse ox 93%. Repeat blood work reveals WBC 9.8, hemoglobin 9.3, platelet count 196. Sodium 144, potassium 4.8, chloride 108, CO2 31. Renal function is worsening with BUN of 120 and creatinine 2.78. Blood sugars are now running 171-226. Levemir 7 units daily will be added. Patient's girlfriend apparently is upset that she feels she is not getting enough information about the patient. She did get an update this morning from patient's nurse. Dr. Baldwin will contact the patient's girlfriend today. 07/02: Patient remains with mechanical ventilation with a tidal 400 FiO2 of 50% and appears of 18 assist control mode of 34. Patient brings with 2 right-sided chest tubes and 1 left-sided. Chest x-ray shows diffuse partially consolidative opacities in the mid lower lung zones unchanged compared to the prior study. Patient remains afebrile, heart rate 57, pulse rate 34, blood pressure 148/75, 8 8% on mechanical ventilation. W BC 7.2, hemoglobin 8.8, sodium 138, potassium 5.0, BUN 134, creatinine 3.19. REVIEW OF SYSTEMS Unable to obtain due to intubation. PHYSICAL EXAMINATION Gen: This is a 55-year-old male. He is resting in ICU bed appears to be comfortable. Facial swelling continues. HEENT: Head is atraumatic, normocephalic. Tracheostomy is midline. NECK: Subcutaneous emphysema. chest : Patient currently has 2 right-sided chest tubes and 1 left-sided chest tube.Chest tube noted with minimal air leak noted on the right chest tube no air leak noted on the left chest tube. Breath sounds are diminished bilaterally. Cardiac: Regular rate S1-S2 no S3 or JVD. Abdomen: positive bowel sounds, nondistended, PEG tube in place. Blevins catheter draining clear alex urine.. Extremities trace edema bilaterally. Neurologic exam patient is sedated currently on mechanical ventilation. ASSESSMENT AND PLAN 1. Acute hypoxic respiratory failure secondary to Covid 19 pneumonia requiring intubation and mechanical ventilation on 06/19. Patient has been seen by pulmonary medicine status post Convalescent plasma and Tocilizumab 1 dose. Continue Solu-Medrol 60 mg IV every 6 hours, Lovenox 40 mg subcu daily, vitamins, cefepime 2 g IV piggyback every 8 hours. Patient is off vasopressors. He is status post trach and PEG tube insertion. Lasix 40 mg IV daily 2 doses, potassium 20 mEq 2 doses. 2. Elevated inflammatory markers secondary to Covid 19. Continue to monitor. 3. Mild hyponatremia, hypernatremia. Patient is currently on D5W at 50 mL/h. 4. Elevated d-dimer. Acute pulmonary embolism has been ruled out by CTA. 5. Lymphocytopenia secondary to Covid 19. 6. Thrush. Status post treatment 7. Subcutaneous emphysema and pneumomediastinum, stable. Status post bilateral chest tube insertion with improvement. 8. Right-sided pneumothorax status post second chest tube. 9. Thrombocytopenia secondary to Covid. Continue to monitor. 10. Metabolic acidosis. Status post bicarb drip. 11. Hyperglycemia. Continue Accu-Cheks and sliding scale insulin. Levemir 7 units held at this time. 11. GI prophylaxis. Protonix daily. 12. DVT prophylaxis. Lovenox. Prognosis is guarded. Impression and plan of care have been directed as dictated by the signing physician. Maira Resendiz nurse practitioner acting as scribe for signing physician. Objective - Vital Signs Vital signs: Vital Signs Temp 98 F 07/02/20 08:00 Pulse 57 L 07/02/20 08:00 Resp 34 H 07/02/20 08:00 BP 103/60 07/01/20 14:00 Pulse Ox 88 L 07/02/20 08:00 Intake & Output 07/01/20 07/02/20 07/02/20 18:59 06:59 18:59 Intake Total 3367.214 2847.817 369.321 Output Total 850 1160 210 Balance 2517.214 1687.817 159.321 Weight 84 kg 82 kg Intake: IV 1478 1274 212 Cefepime 2 gm In Sodium 100 100 Chloride 0.9% 100 ml @ 25 mls/hr IVPB Q8HR [facility] Rx# :[id number] Dextrose 5% in Water 1, 1300 1100 200 000 ml @ 100 mls/hr IV . Q10H [facility] Rx#:[id number] pressure bag 78 74 12 Intake, IV Titration 912.214 824.817 69.321 Amount Rocuronium 400 mg In 123.950 153.495 Sodium Chloride 0.9% 100 ml @ 5 MCG/KG/MIN 8.82 mls/hr IV .[id number] [facility] Rx #:[id number] fentaNYL (PF). 1,000 mcg 393.663 340.254 69.321 In Sodium Chloride 0.9% 80 ml @ Per Protocol IV . Q0M [facility] Rx#:[id number] propofoL 1,000 mg In 394.601 331.068 Empty Bag 1 bag @ Titrate IV .Q0M [facility] Rx#: [id number] Tube Feeding 377 319 58 Other 600 430 30 Output: Chest Tube Drainage 300 330 35 Chest Tube Left 40 90 20 Chest Tube Right 130 120 10 Chest Tube Right Upper 130 120 5 Urine 550 830 175 Other: Voiding Method Indwelling Catheter Indwelling Catheter Indwelling Catheter ABP, PAP, CO, CI - Last Documented Arterial Blood Pressure 148/75 - Labs CBC & Chem 7: 07/02/20 04:30 07/02/20 04:30 Labs: Abnormal Lab Results - Last 24 Hours (Table) 07/01/20 07/01/20 07/01/20 Range/Units 12:03 17:45 23:45 RBC (4.30-5.90) m/uL Hgb (13.0-17.5) gm/dL Hct (39.0-53.0) % Lymphocytes # (1.0-4.8) k/uL D-Dimer (<0.60) mg/L FEU ABG pH (7.35-7.45) ABG pCO2 (35-45) mmHg ABG pO2 (83-108) mmHg ABG HCO3 (21-25) mmol/L ABG Total CO2 (19-24) mmol/L ABG O2 Saturation (94-97) % BUN (9-20) mg/dL Creatinine (0.66-1.25) mg/dL Glucose (74-99) mg/dL POC Glucose (mg/dL) 226 H 204 H 212 H (75-99) mg/dL Calcium (8.4-10.2) mg/dL Lactate Dehydrogenase (313-618) U/L C-Reactive Protein (<1.0) mg/dL Total Protein (6.3-8.2) g/dL Albumin (3.5-5.0) g/dL 05/03/2407/02/20 07/02/20 Range/Units 04:30 04:30 04:30 RBC 2.94 L (4.30-5.90) m/uL Hgb 8.8 L (13.0-17.5) gm/dL Hct 27.9 L (39.0-53.0) % Lymphocytes # 0.4 L (1.0-4.8) k/uL D-Dimer 2.58 H (<0.60) mg/L FEU ABG pH (7.35-7.45) ABG pCO2 (35-45) mmHg ABG pO2 (83-108) mmHg ABG HCO3 (21-25) mmol/L ABG Total CO2 (19-24) mmol/L ABG O2 Saturation (94-97) % BUN 134 H* (9-20) mg/dL Creatinine 3.19 H (0.66-1.25) mg/dL Glucose 204 H (74-99) mg/dL POC Glucose (mg/dL) (75-99) mg/dL Calcium 7.4 L (8.4-10.2) mg/dL Lactate Dehydrogenase 1593 H (313-618) U/L C-Reactive Protein 21.0 H (<1.0) mg/dL Total Protein 5.3 L (6.3-8.2) g/dL Albumin 2.4 L (3.5-5.0) g/dL 07/02/20 Range/Units 05:06 RBC (4.30-5.90) m/uL Hgb (13.0-17.5) gm/dL Hct (39.0-53.0) % Lymphocytes # (1.0-4.8) k/uL D-Dimer (<0.60) mg/L FEU ABG pH 7.24 L (7.35-7.45) ABG pCO2 64 H (35-45) mmHg ABG pO2 71 L (83-108) mmHg ABG HCO3 27 H (21-25) mmol/L ABG Total CO2 29 H (19-24) mmol/L ABG O2 Saturation 91.9 L (94-97) % BUN (9-20) mg/dL Creatinine (0.66-1.25) mg/dL Glucose (74-99) mg/dL POC Glucose (mg/dL) (75-99) mg/dL Calcium (8.4-10.2) mg/dL Lactate Dehydrogenase (313-618) U/L C-Reactive Protein (<1.0) mg/dL Total Protein (6.3-8.2) g/dL Albumin (3.5-5.0) g/dL Microbiology - Last 24 Hours (Table) 06/27/20 22:24 Blood Culture - Preliminary Blood No Growth after 96 hours 06/27/20 18:31 Blood Culture - Preliminary Blood No Growth after 96 hours
--- NOTE | 2020-07-02 11:02 | P.PN ---
Subjective Progress Note Date: 07/02/20 Principal diagnosis: COVID 19 pneumonia Patient was reevaluated today on 06/23/2020, remains intubated and mechanically ventilated. Remains in the ICU, sedated and paralyzed. He is on assist control rate of 34, tidal volume is 400 FiO2 is 65 and PEEP is 20. ABG showed a pO2 of 77 pCO2 of 86 pH of 7.37. Patient remains on propofol at 75, fentanyl S3, pleasant Pleurx at 8 mg per hour, Nimbex at 2. Plan to give the patient a trial of Nimbex holiday today if possible. Remains on Nepro 17/17. Chest x-ray is basically the same, continues to show bilateral patchy infiltrates and subcutaneous emphysema. Patient is hemodynamically stable, not requiring any pressors, however he is a bit tachycardic rate is 120. Both sided chest tubes are about the same, and no leaks noted. Basic metabolic profile is normal, bicarb is 45. Patient remains on bicarb drip. D-dimer is 4.66. WBC count is 17.6 hemoglobin is 12.9. LDH remains high at 2747, C-reactive protein is 7 and CPK is 178. Patient was reevaluated today on 06/24/20, remains in the ICU, intubated and mechanically ventilated, sedated and paralyzed. He is on assist control rate of 34 tidal volume is 400 FiO2 of 65% and PEEP remains at 20. Peak airway pressure is about 39 and plateau pressure is 35. ABG showed a pO2 of 75 pCO2 83 pH of 7.39. Hence I decreased the FiO2 down to 60% kept him on the same PEEP/20. Patient remains on propofol at 75 Nimbex at 2 fentanyl S3, proximal at 5 mg per hour and he is also on a bicarb drip which I have discontinued today considering his ABG is showing metabolic compensation significant to his respiratory acidosis. Chest x-ray continues to show bilateral subcutaneous emphysema, improved, and bilateral patchy infiltrates I believe a bit better. Chest tubes remain in place, minimal air leak noted in the right-sided chest tube. No air leak noted in the left sided chest tube. Patient remains on enteral feeding, he is receiving Nepro 17/17. WBC count today is 21.7. D-dimer is 3.96. Electrolytes are normal bicarb is 48 BUN is 48 creatinine 0.60. LDH remains high at 2733 however it was as high as 10,002 days ago. C-reactive protein is down to 4.7. Reevaluated today on 06/25/2020, patient remains intubated and mechanically ventilated. He is on assist control rate of 34 tidal volume is 400 FiO2 60% PEEP remains at 20. His ABG today showed a pO2 of 61 pH of 7.38 and pCO2 of 87. Patient continues to have 2 chest tubes for his barotrauma, no air leak noted in the left sided chest tube, but intermittently noted in the right sided chest tube. Patient remains on D5W with bicarbonate 50 ML per hour propofol at 75 clevidipine 2 mg/h Nimbex at 2 fentanyl 3 mcg/kg/h. Chest x-ray continues to show bilateral infiltrates consistent with COVID-19 pneumonia, possibly a small right-sided apical pneumothorax is noted on the chest x-ray today. Left lung is fully expanded. Continues to have a pneumomediastinum and he continues to have subcutaneous emphysema in the neck region especially in the left side. Hence went ahead and placed a small tiny Angiocath, 14-gauge Angiocath to relieve some of the subcutaneous emphysema in the supraclavicular fat pad area WBC count is 16.4 hemoglobin is 12 sodium remains high at 145. Bicarb remains at [address] the patient back on bicarb mostly because of his hyperkalemia and wanted to keep his acidosis under control. Although it is mostly a respiratory type of acidosis alkaline phosphatase is 214, AST is 87. LDH is 2310. C-reactive protein is 4.1, Patient was reevaluated today on 06/26/2020, remains in the ICU, intubated and mechanically ventilated. Agent is on assist control rate of 34 tidal volume is 400 FiO2 is 60% and I cut it down to 55% PEEP was 20 and I cut it down to 18. ABG this morning showed a pO2 of 66 pCO2 of 88 pH of 7.37. Patient remains on Nepro . Patient has bilateral chest tubes, the left-sided chest tube is not showing any leak, however the right-sided chest tube has ongoing intermittent leak. Patient remains on propofol at 75 fentanyl S3 clevidipine 3 mg/h, and Nimbex at 30 mcg/kg/m. Patient is not requiring any pressors. Continues to have some subcu emphysema, but significantly improved compared to the last few days. Chest x-ray is showing minimal improvement. Continues to have some subcu emphysema. And pneumomediastinum. He got his 17 hemoglobin 11.6. Sodium is 146 potassium 5.3, renal profile is normal with BUN of 48 creatinine 0.64. LDH is coming down to 2490, and C-reactive protein is 6. overall I believe there is some improved but the patient remains quite ill, and condition remains very critical. Prognosis remains guarded. Progress note dated 06/27/2020. The patient was admitted to the hospital on June 13. His diagnosis was that of coronavirus infection and pneumonia. The patient was intubated on June 20. He remains on the ventilator, on the volume assist control mode, rate 34, tidal volume 400, FiO2 55%, PEEP 18. Arterial blood gases show pO2 62, PaCO2 87, and a pH is 7.36. The patient remains on Cleveprex at 3 mg an hour, Nimbex at 3 mcg/kg/m, fentanyl at 3 mcg/kg/h, propofol at 75 mcg/kg/m, and tube feedings with Nepro at 28 mL an hour, which is goal. The patient will benefit from a tracheostomy and PEG tube placement. In addition, a new art line will be placed. The patient does have bilateral chest tubes secondary to bilateral pneumothoraces. White count 13.5, hemoglobin 11.9, hematocrit 38.3, and platelet count 148,000. D-dimer is 4.69. Blood gases have been noted. Sodium 150, potassium 5.2, chlorides 101, CO2 52, BUN 52, creatinine 0.76. The patient's sodium bicarbonate IV/drip was discontinued. LDH is 2347 C-reactive protein 8.8. Progress note dated 06/28/2020. This patient was admitted to the hospital on June 13. His initial diagnosis was pneumonia secondary to coronavirus infection, with hypoxemia. The patient was intubated on June 20. Remains on the ventilator. He is seen today again in room 253. Current vent settings included a volume assist control mode rate 34, tidal volume 400, FiO2 55%, and PEEP of 18. Lungs gases show a PaO2 of 62, pCO2 80, and pH is 7.39. The patient is currently on Nimbex at 4 mcg/kg/m, fentanyl at 3 mcg/kg/h, propofol at 50 mcg/kg/m, and tube feedings with Nepro at 28 mL an hour, which is goal. The patient is not receiving any IV fluids. The patient does have bilateral chest tubes. We did ask surgery to consider doing a tracheostomy and PEG tube placement. We going to give the patient D5W at 100 mL an hour, for a sodium of 151. White count 17, hemoglobin 10.8, hematocrit 33.8, platelet count 144,000. D-dimer 3.04. Sodium 151, potassium 4.5, chlorides 105, CO2 46, BUN 66, creatinine 1.31. Sputum from June 21, showed evidence of Moraxella catarrhalis, and oxacillin sensitive staph aureus. Progress note dated 06/29/2020. 55-year-old male, admitted to the hospital on June 13. His diagnosis was coronavirus pneumonia, and hypoxemic respiratory failure. The patient was intubated on June 20. He remains on the ventilator. He is again seen today in room 253. Last night, I did come back to the hospital for a left internal jugular triple-lumen catheter insertion, and, because of worsening pneumothorax on the right side, I inserted the second chest tube in the right pleural space. The follow-up chest x-ray showed significant improvement in the right-sided pneumothorax. The patient remains on the mechanical ventilator, volume assist control mode, rate 34, tidal volume 400, FiO2 70%, PEEP of 18. Blood gases show pO2 of 67, pCO2 76, and a pH is 7.36. Currently, the patient remains on Nimbex, at 5 mcg/kg/m, propofol at 50 mcg/kg/m, and fentanyl at 3 mcg/kg/h. The patient's also getting D5W at 100 mL an hour. Tube feeds on hold, or anticipated tracheostomy tube placement and PEG tube placement today. The patient has 2 chest tubes on the right, one on the left. He has a significant leak from the new right-sided chest tube. He is receiving Nepro at 28 mL an hour, which are currently on hold for the anticipated surgical procedure. White count 12.7, hemoglobin 10.3, hematocrit 31.9, platelet count 139,000. Sodium 150, potassium 4.6, chlorides 107, CO2 42, anion gap 1, BUN 83, creatinine 1.27. Chest x-ray shows patchy airspace disease bilaterally, and improved right-sided pneumothorax, with residual small right apical pneumothorax, less than 10%. Progress note dated 06/30/2020. 55-year-old male, admitted to the hospital on June 13. His diagnosis was that of coronavirus pneumonia, and hypoxemic respiratory failure. The patient was intubated on June 20. He remains on the ventilator. The patient is on the volume assist control mode, rate 34, tidal volume of 400, FiO2 70%, and PEEP of 18. Blood gases show pO2 of 72, pCO2 75, and pH 7.32. Currently, the patient is on Nimbex at 8 g kilogram per minute, fentanyl at 5 mcg/kg/h, propofol 60 mcg/kg/m, D5W at 100 mL an hour, and Nepro, at 28 mL an hour. The patient underwent tracheostomy and PEG tube placement on June 29. The patient has 2 chest tubes on the right, one chest tube on the left. There is a large leak on one of the right-sided chest tubes. We are going to DC vancomycin, DC Decadron, and start Solu-Medrol. White count 9.3, hemoglobin 9.5, hematocrit 29.7, and platelet count 152,000. Sodium 149, potassium 4.5, chlorides 111, CO2 38, BUN 94, creatinine 1.97. Microbiology is positive for staph, and Moraxella, on June 21 the sputum, and again, staph, on June 28. The patient remains on cefepime. Chest x-ray shows resolution of right-sided pneumothorax, and diffuse bilateral airspace disease. Progress note dated 07/01/2020. 55-year-old male, again seen in room 253. The patient was admitted to the hospital on June 13. The patient underwent tracheostomy and PEG tube placement on June 29 for failure to wean from mechanical ventilation. He currently remains on the mechanical ventilator. He is on the volume assist control mode rate of 34, tidal volume 400, FiO2 70%, PEEP of 18. Blood gases show pO2 71, pCO2 of 68, pH 7.28. The patient remains on Nimbex at 10 g kilogram per minut e, propofol at 50 mcg/kg/m, fentanyl 5 mcg/kg/h D5W 100 mL an hour, and tube feedings with Nepro at 29 mL an hour, which is goal. The patient has 2 chest tubes on the right, one on the left. There is a large leak from one of the right-sided chest tube. This no obvious pneumothorax on chest x-ray. The patient will get some additional fluid today, the form of lactated Ringer's, 1-2 L. White count 9.8, he will 9.3, hematocrit 27.8, and platelet count 196,000. Sodium 144, potassium 4.8, chlorides 108, CO2 31, anion gap 5, BUN 120, creatinine 2.78. Chest x-ray shows bilateral infiltrates, with no sizable pneumothorax. Progress note dated 07/02/2020. 55-year-old male, again seen in room 253. The patient was admitted to the hospital on June 13. The patient underwent tracheostomy and PEG tube placement on June 29, for failure to wean from mechanical ventilation. She remains on mechanical ventilator. Settings include the volume assist control mode, rate 34, tidal volume 400, FiO2 80%, and PEEP of 18. Blood gases show pO2 71, pCO2 of 64, pH 7.23. His D5W IV will be converted to KVO. He's currently on propofol at 70 mics per kilogram per minute, fentanyl at 5 mcg/kg/h, and r ocuronium at 12 mg/kg/m. The patient is also receiving tube feedings with Nepro, at 29 mL an hour, which is goal. Because of worsening renal function, nephrology will be consulted. Today sodium is down to 138. White count 7.2, hemoglobin 8.8, hematocrit 27.9, and platelet count 228,000. D-dimer is 2.58. Sodium 138, potassium 5, chlorides 105, CO2 27, anion gap 6, BUN 134, creatinine 3.19. LDH is 1593. C-reactive protein is 21. Chest x-ray is unchanged. It shows diffuse bilateral infiltrates. Objective - Vital Signs Vital signs: Vital Signs Temp 98 F 07/02/20 08:00 Pulse 80 07/02/20 10:00 Resp 34 H 07/02/20 10:00 BP 103/60 07/01/20 14:00 Pulse Ox 88 L 07/02/20 10:00 Intake & Output 07/01/20 07/02/20 07/02/20 18:59 06:59 18:59 Intake Total 3367.214 2847.817 559.321 Output Total 850 1160 310 Balance 2517.214 1687.817 249.321 Weight 84 kg 82 kg Intake: IV 1478 1274 344 Cefepime 2 gm In Sodium 100 100 Chloride 0.9% 100 ml @ 25 mls/hr IVPB Q8HR [facility] Rx# :[id number] Dextrose 5% in Water 1, 1300 1100 320 000 ml @ 100 mls/hr IV . Q10H [facility] Rx#:[id number] pressure bag 78 74 24 Intake, IV Titration 912.214 824.817 69.321 Amount Rocuronium 400 mg In 123.950 153.495 Sodium Chloride 0.9% 100 ml @ 5 MCG/KG/MIN 8.82 mls/hr IV .[id number] [facility] Rx #:[id number] fentaNYL (PF). 1,000 mcg 393.663 340.254 69.321 In Sodium Chloride 0.9% 80 ml @ Per Protocol IV . Q0M [facility] Rx#:[id number] propofoL 1,000 mg In 394.601 331.068 Empty Bag 1 bag @ Titrate IV .Q0M [facility] Rx#: [id number] Tube Feeding 377 319 116 Other 600 430 30 Output: Chest Tube Drainage 300 330 35 Chest Tube Left 40 90 20 Chest Tube Right 130 120 10 Chest Tube Right Upper 130 120 5 Urine 550 830 275 Other: Voiding Method Indwelling Catheter Indwelling Catheter Indwelling Catheter ABP, PAP, CO, CI - Last Documented Arterial Blood Pressure 152/79 - Exam Currently, the patient is sedated and paralyzed. There is a midline tracheostomy tube noted. Saturation is 90 %. HEENT examination is grossly unremarkable. Neck supple. Full range of motion. No adenopathy thyromegaly or neck vein distention. Cardiovascular examination reveals regular rhythm rate. S1-S2 normal. No S3 or S4. No discernible murmur noted. Heart rate 80 bpm. Lungs reveal coarse bilateral rhonchi. Bilateral crackles are also noted. There is also subcutaneous emphysema noted in the left chest area. There are bilateral chest tubes, 2 on the right, one on the left. The new right-sided chest tube, that I placed previously, has a significant leak. Abdomen soft bowel sounds are heard. No masses or tenderness. PEG tube is noted. Extremities are intact. No cyanosis clubbing or edema. Skin is without rash or lesion. Neurologic examination could not be assessed as the patient's currently sedated and paralyzed. - Labs CBC & Chem 7: 07/02/20 04:07/02/20 04:30 Labs: Abnormal Lab Results - Last 24 Hours (Table) 07/01/20 07/01/20 07/01/20 Range/Units 12:03 17:45 23:45 RBC (4.30-5.90) m/uL Hgb (13.0-17.5) gm/dL Hct (39.0-53.0) % Lymphocytes # (1.0-4.8) k/uL D-Dimer (<0.60) mg/L FEU ABG pH (7.35-7.45) ABG pCO2 (35-45) mmHg ABG pO2 (83-108) mmHg ABG HCO3 (21-25) mmol/L ABG Total CO2 (19-24) mmol/L ABG O2 Saturation (94-97) % BUN (9-20) mg/dL Creatinine (0.66-1.25) mg/dL Glucose (74-99) mg/dL POC Glucose (mg/dL) 226 H 204 H 212 H (75-99) mg/dL Calcium (8.4-10.2) mg/dL Lactate Dehydrogenase (313-618) U/L C-Reactive Protein (<1.0) mg/dL Total Protein (6.3-8.2) g/dL Albumin (3.5-5.0) g/dL 07/02/20 07/02/20 07/02/20 Range/Units 04: 04:30 04:30 RBC 2.94 L (4.30-5.90) m/uL Hgb 8.8 L (13.0-17.5) gm/dL Hct 27.9 L (39.0-53.0) % Lymphocytes # 0.4 L (1.0-4.8) k/uL D-Dimer 2.58 H (<0.60) mg/L FEU ABG pH (7.35-7.45) ABG pCO2 (35-45) mmHg ABG pO2 (83-108) mmHg ABG HCO3 (21-25) mmol/L ABG Total CO2 (19-24) mmol/L ABG O2 Saturation (94-97) % BUN 134 H* (9-20) mg/dL Creatinine 3.19 H (0.66-1.25) mg/dL Glucose 204 H (74-99) mg/dL POC Glucose (mg/dL) (75-99) mg/dL Calcium 7.4 L (8.4-10.2) mg/dL Lactate Dehydrogenase 1593 H (313-618) U/L C-Reactive Protein 21.0 H (<1.0) mg/dL Total Protein 5.3 L (6.3-8.2) g/dL Albumin 2.4 L (3.5-5.0) g/dL 07/02/20 Range/Units 05:06 RBC (4.30-5.90) m/uL Hgb (13.0-17.5) gm/dL Hct (39.0-53.0) % Lymphocytes # (1.0-4.8) k/uL D-Dimer (<0.60) mg/L FEU ABG pH 7.24 L (7.35-7.45) ABG pCO2 64 H (35-45) mmHg ABG pO2 71 L (83-108) mmHg ABG HCO3 27 H (21-25) mmol/L ABG Total CO2 29 H (19-24) mmol/L ABG O2 Saturation 91.9 L (94-97) % BUN (9-20) mg/dL Creatinine (0.66-1.25) mg/dL Glucose (74-99) mg/dL POC Glucose (mg/dL) (75-99) mg/dL Calcium (8.4-10.2) mg/dL Lactate Dehydrogenase (313-618) U/L C-Reactive Protein (<1.0) mg/dL Total Protein (6.3-8.2) g/dL Albumin (3.5-5.0) g/dL Microbiology - Last 24 Hours (Table) 06/27/20 22:24 Blood Culture - Preliminary Blood No Growth after 96 hours 06/27/20 18:31 Blood Culture - Preliminary Blood No Growth after 96 hours Assessment and Plan Assessment: Acute hypoxemic respiratory failure secondary to COVID 19 pneumonia/pneumonitis. Status post tracheostomy and PEG tube placement, June 29, for failure to wean from mechanical ventilation. Acute barotrauma from mechanical ventilation, and relatively high PEEP levels, requiring bilateral chest tubes, 2 on the right, and 1 on the left. Oxacillin sensitive staph aureus and Moraxella catarrhalis tracheobronchitis/bronchopneumonia. Hypernatremia. Elevated inflammatory markers. Hypotension, resolved. Hypertension, Cleveprex weaned off. Thrombocytopenia, secondary to sepsis. Plan: Plan dated 06/27/2020. The bicarbonate drip will be discontinued given the fact that the patient's sodium is quite high. No ventilator changes today. The patient will need a tracheostomy and PEG tube placement. Surgery will be consulted. In addition, a new arterial line will be placed today. Additional recommendations and suggestions are forthcoming. Prognosis is very guarded. We'll continue to follow make recommendations where appropriate. Plan dated 06/28/2020. The nurse did speak to the family about tracheostomy and PEG tube placement. Apparently they wanted to wait 1 additional day. Surgery was consulted. Yesterday, we replaced a arterial line that had gone bad. Overall prognosis remains guarded. We'll continue to follow. Labs, x-rays, medications are all reviewed. The patient remains on propofol, fentanyl, and Nimbex. He is getting nutrition with Nepro at goal. We will continue to follow make recommendations where needed. Also, because of the patient's hypernatremia, the patient be given D5W at 100 mL an hour. Plan dated 06/29/2020. I placed another right-sided chest tube last night. In addition, I did insert a left internal jugular triple-lumen catheter. I was not convinced that the PICC line in the right arm was functioning normally. The patient remains on Nimbex, propofol, and fentanyl. Hopefully, the patient will have a tracheostomy tube and PEG tube placed today. Tube feeds are on hold. The new right-sided chest tube has a significant leak and volumes of being lost from the chest tube. Ad ditional recommendations and suggestions are forthcoming. We will continue to follow. Prognosis is guarded. Plan dated 06/30/2020. We will discontinue the vancomycin. The Staphylococcus noted on the most recent sputum, is oxacillin sensitive. The patient is ready on cefepime. We will discontinue Decadron, in favor of Solu-Medrol. The patient remains on Nimbex, fentanyl, and propofol. 2 feedings will be restarted today. The patient had a tracheostomy tube placed and PEG tube placed yesterday, June 29. Overall prognosis remains guarded. The patient has 2 right-sided chest tubes, and 1 left-sided chest tube. There is a large leak from one of the chest tubes on the right. Prognosis is guarded. We will continue to follow this patient and make recommendations where appropriate. Plan dated 07/01/2020. Currently, the patient remains on Nimbex, propofol, and fentanyl. The patient has 2 chest tubes on the right, one on the left. There is a considerable leak on one of the right-sided chest tubes. The patient underwent tracheostomy and PEG tube placement on June 29. Renal function is worsening. We'll consult nephrology. Because it appears that his pattern is that of prerenal azotemia, the patient will get 1-2 L of lactated Ringer's. We'll also see if we can change Nimbex to another paralytic. Additional recommendations and suggestions are forthcoming. Prognosis is guarded. We will continue to follow the patient and make recommendations where appropriate. Plan dated 07/02/2020. Currently, the patient's on propofol, fentanyl, and rocuronium. The patient h as 2 chest tubes on the right one on the left. Will have nephrology see the patient. The patient cefepime will be discontinued at this time. Currently, the patient is receiving nutrition at goal. The D5W IV will be cut back to KVO. Sodium currently is normal at 138. Prognosis is guarded. We will continue to follow this patient and make recommendations were appropriate. Time with Patient: Greater than 30
[2020-07-02 12:08] LABS: Glucose,Whole Blood 201 mg/dL (75-99)
[2020-07-02 13:15] VITALS: BMI 29.2
--- NOTE | 2020-07-02 15:27 | PN ---
PROGRESS NOTE DATE OF SERVICE: 07/02/2020 REASON FOR FOLLOWUP: Pneumonia. INTERVAL HISTORY: The patient is currently afebrile. The patient is hemodynamically stable, not on pressor support. No significant purulent secretions has been reported by nursing staff or any diarrhea. The patient remains to be on paralytic and sedated. PHYSICAL EXAMINATION: Blood pressure 150/75 with a pulse of 83, temperature is 97.7, he is 89% on 50% FiO2. GENERAL DESCRIPTION: A middle-aged male intubated on the vent. RESPIRATORY SYSTEM: Unlabored breathing, decreased intensity of breath sounds, no wheeze. HEART: S1, S2. Regular rate and rhythm. ABDOMEN: Soft, no tenderness. LABS: Hemoglobin is 8.1, white count 7.2, BUN of 134, creatinine 3.19. Sputum has been MSSA. DIAGNOSTIC IMPRESSION AND PLAN: Patient with acute respiratory failure which is multifactorial and did have a component of COVID-19 pneumonia now with evidence of bacterial pneumonia. Sputum has been Moraxella and MSSA. The patient is covered with cefepime. Did have worsening of his kidney function. Continue current supportive treatment and monitor clinical course closely. MMODL / IJN: [id number] /
--- NOTE | 2020-07-02 15:29 | P.NPCON ---
History of Present Illness - Reason for Consult Consult date: 07/02/20 acute renal failure - Chief Complaint Shortness of breath - History of Present Illness 55-year-old gentleman coming to the hospital on 06/14/2020 with the above complaints. He was diagnosed with Covid 19 pneumonia and admitted to ICU. He was on ventilator currently has tracheostomy tube. Nephrology was consulted for worsening renal failure. He is not on pressors. He developed barotrauma req uiring bilateral chest tubes. Baseline creatinine 0.6-0.7 MG per DL. On 06/28/2020 creatinine started creeping and 3.19 MG per DL today. He will he also had hypernatremia which was treated with D5 water. No diarrhea. No recent contrast studies. No documented hypotensive episodes. Review of Systems ROS unobtainable: due to endotracheal tube Constitutional: Reports as per HPI Past Medical History Past Medical History: No Reported History History of Any Multi-Drug Resistant Organisms: None Reported Past Surgical History: Orthopedic Surgery Additional Past Surgical History / Comment(s): surgery on hyloid surgery Past Anesthesia/Blood Transfusion Reactions: No Reported Reaction Past Psychological History: No Psychological Hx Reported Smoking Status: Never smoker Past Alcohol Use History: Occasional Past Drug Use History: None Reported - Past Family History Father Additional Family Medical History / Comment(s): none Medications and Allergies Home Medications Medication Instructions Recorded Confirmed Type No Known Home Medications 06/14/20 06/14/20 History Allergies Allergy/AdvReac Type Severity Reaction Status Date / Time No Known Allergies Allergy Verified 06/14/20 07:39 Physical Exam Vitals: Vital Signs Temp Pulse Resp BP Pulse Ox 07/02/20 15:00 83 34 H 89 L 07/02/20 14:00 80 34 H 103/60 89 L 07/02/20 13:00 80 33 H 90 L 07/02/20 12:00 97.7 F 84 34 H 91 L 07/02/20 11:00 85 34 H 87 L 07/02/20 10:00 80 34 H 88 L 07/02/20 09:00 80 34 H 89 L 07/02/20 08:00 98 F 57 L 34 H 88 L 07/02/20 07:00 77 34 H 89 L 07/02/20 06:00 72 34 H 89 L 07/02/20 05:00 69 34 H 92 L 07/02/20 04:00 98.4 F 79 34 H 93 L 07/02/20 03:00 75 34 H 92 L 07/02/20 02:00 72 34 H 91 L 07/02/20 01:00 73 45 H 95 07/02/20 00:00 98.4 F 73 42 H 96 07/01/20 23:00 74 43 H 96 07/01/20 22:00 74 43 H 96 07/01/20 21:00 77 48 H 95 07/01/20 20:00 98.0 F 76 45 H 94 L 07/01/20 19:00 72 46 H 93 L 07/01/20 18:00 77 44 H 92 L 07/01/20 17:00 81 42 H 91 L 07/01/20 16:00 97.8 F 78 45 H 93 L Intake and Output 07/02/20 07/02/20 07/02/20 06:59 14:59 22:59 Intake Total 2222.700 1300.321 Output Total 980 585 Balance 1242.700 715.321 Intake: IV 956 448 Cefepime 2 gm In Sodium 100 Chloride 0.9% 100 ml @ 25 mls/hr IVPB Q8HR [facility] Rx# :[id number] Dextrose 5% in Water 1, 800 400 000 ml @ 100 mls/hr IV . Q10H [facility] Rx#:[id number] pressure bag 56 48 Intake, IV Titration 634.700 369.321 Amount Rocuronium 400 mg In 140 Sodium Chloride 0.9% 100 ml @ 5 MCG/KG/MIN 8.82 mls/hr IV .[id number] [facility] Rx #:[id number] fentaNYL (PF). 1,000 mcg 258.762 169.321 In Sodium Chloride 0.9% 80 ml @ Per Protocol IV . Q0M [facility] Rx#:[id number] propofoL 1,000 mg In 235.938 200 Empty Bag 1 bag @ Titrate IV .Q0M [facility] Rx#: [id number] Tube Feeding 232 223 Other 400 260 Output: Chest Tube Drainage 330 180 Chest Tube Left 90 80 Chest Tube Right 120 50 Chest Tube Right Upper 120 50 Urine 650 405 Other: Voiding Method Indwelling Catheter Indwelling Catheter Weight 82 kg 82 kg ABP, PAP, CO, CI - Last 8 Hours Arterial Blood Pressure 152/75 Arterial Blood Pressure 155/78 Arterial Blood Pressure 146/74 Arterial Blood Pressure 153/75 Arterial Blood Pressure 165/80 Arterial Blood Pressure 152/79 Arterial Blood Pressure 141/73 Arterial Blood Pressure 148/75 Refer to primary team exam Covid 19 isolation. Results - Lab Results Most recent lab results ABG pH 7.24 (7.35-7.45) L 07/02/20 05:06 ABG pCO2 64 mmHg (35-45) H 07/02/20 05:06 ABG pO2 71 mmHg (83-108) L 07/02/20 05:06 ABG HCO3 27 mmol/L (21-25) H 07/02/20 05:06 ABG O2 Saturation 91.9 % (94-97) L 07/02/20 05:06 Calcium 7.4 mg/dL (8.4-10.2) L 07/02/20 04:30 Phosphorus 3.0 mg/dL (2.5-4.5) 06/21/20 04:20 Magnesium 3.0 mg/dL (1.6-2.3) H 06/21/20 04:20 07/02/20 04:30 07/02/20 04:30 Assessment and Plan Assessment: #1 acute kidney injury suspect hemodynamic ATN. Baseline creatinine 0.8 MG per DL. #2 Covid 19 pneumonia on ventilator. #3 barotrauma requiring chest tubes. #4 mild hyperkalemia #5 respiratory acidosis #6 edema Plan: #1 agree with Lasix, increase to 60 mg IV twice a day. #2 check urine analysis, urine electrolytes. #3 renal ultrasound for size and obstruction #4 strict ins and outs. Daily weights. #4 avoid nephrotoxic agents and hypotensive episodes.
[2020-07-02] MEDS ORDERED: FUROSEMIDE 10 MG/ML 10 ML VIAL IV SCH (15:30)
--- NOTE | 2020-07-02 16:36 | P.PN ---
Subjective Progress Note Date: 07/02/20 CHIEF COMPLAINT: COVID pneumonia HISTORY OF PRESENT ILLNESS: The patient is a 55 year old male with Covid pneumonia status post trach and PEG. He has bilateral chest tubes. He has worsening kidney function with creatinine over 3.0. The patient remains in the ICU ventilated and sedated. Nephrology consultation has been obtained. Patient continues to require moderate ventilation. REVIEW OF ORGAN SYSTEMS: On mechanical ventillation. Otherwise unable to answer with vent. Patient has history of left pneumothorax PHYSICAL EXAM: VITALS: Reviewed CONSTITUTIONAL: Well developed and in no acute distress. EYES: Conjuctivae without sclera icterus. HEAD, EARS, NOSE, THROAT: Head is atraumatic, normocephalic. Tracheostomy intact. RESPIRATORY: Non-labored respirations and equal bilateral excursions. Mechanical ventilation CARDIOVASCULAR: Palpable 2+ radial pulses. ABDOMEN: No peritonitis. Gastrostomy tube intact. NEUROLOGIC: No focal or lateralizing signs PSYCH: Sedated SKIN: Good skin turgor. Well perfused. CLINCAL LABS: Reviewed. WBC normal 10.1. STUDIES: Chest x-ray independently reviewed demonstrating diffuse bilateral airway disease. Bilateral chest tubes identified. This is my independent interpretation. ASSESSMENT: 1. COVID pneumonia 2. Status post trach and PEG 3. Kidney failure 4. Left apical pneumothorax. PLAN: 1. Overall, patient's prognosis remains guarded. Objective - Vital Signs Vital signs: Vital Signs Temp 98 F 07/02/20 16:00 Pulse 86 07/02/20 16:00 Resp 34 H 07/02/20 16:00 BP 103/60 07/02/20 14:00 Pulse Ox 90 L 07/02/20 16:00 Intake & Output 07/01/20 07/02/20 07/02/20 18:59 06:59 18:59 Intake Total 3367.214 2847.817 1376.321 Output Total 850 1160 705 Balance 2517.214 1687.817 671.321 Weight 84 kg 82 kg 82 kg Intake: IV 1478 1274 474 Cefepime 2 gm In Sodium 100 100 Chloride 0.9% 100 ml @ 25 mls/hr IVPB Q8HR [facility] Rx# :[id number] Dextrose 5% in Water 1, 1300 1100 420 000 ml @ 100 mls/hr IV . Q10H [facility] Rx#:[id number] pressure bag 78 74 54 Intake, IV Titration 912.214 824.817 369.321 Amount Rocuronium 400 mg In 123.950 153.495 Sodium Chloride 0.9% 100 ml @ 5 MCG/KG/MIN 8.82 mls/hr IV .[id number] [facility] Rx #:[id number] fentaNYL (PF). 1,000 mcg 393.663 340.254 169.321 In Sodium Chloride 0.9% 80 ml @ Per Protocol IV . Q0M [facility] Rx#:[id number] propofoL 1,000 mg In 394.601 331.068 200 Empty Bag 1 bag @ Titrate IV .Q0M [facility] Rx#: [id number] Tube Feeding 377 319 243 Other 600 430 290 Output: Chest Tube Drainage 300 330 250 Chest Tube Left 40 90 110 Chest Tube Right 130 120 60 Chest Tube Right Upper 130 120 80 Urine 550 830 455 Other: Voiding Method Indwelling Catheter Indwelling Catheter Indwelling Catheter ABP, PAP, CO, CI - Last Documented Arterial Blood Pressure 142/73 - Labs CBC & Chem 7: 07/03/20 03:45 07/03/20 03:45 Labs: Abnormal Lab Results - Last 24 Hours (Table) 07/01/20 07/01/20 07/02/20 Range/Units 17:45 23:45 04:30 RBC 2.94 L (4.30-5.90) m/uL Hgb 8.8 L (13.0-17.5) gm/dL Hct 27.9 L (39.0-53.0) % Lymphocytes # 0.4 L (1.0-4.8) k/uL D-Dimer (<0.60) mg/L FEU ABG pH (7.35-7.45) ABG pCO2 (35-45) mmHg ABG pO2 (83-108) mmHg ABG HCO3 (21-25) mmol/L ABG Total CO2 (19-24) mmol/L ABG O2 Saturation (94-97) % BUN (9-20) mg/dL Creatinine (0.66-1.25) mg/dL Glucose (74-99) mg/dL POC Glucose (mg/dL) 204 H 212 H (75-99) mg/dL Calcium (8.4-10.2) mg/dL Lactate Dehydrogenase (313-618) U/L C-Reactive Protein (<1.0) mg/dL Total Protein (6.3-8.2) g/dL Albumin (3.5-5.0) g/dL 07/02/20 07/02/20 07/02/20 Range/Units 04:30 04:30 05:06 RBC (4.30-5.90) m/uL Hgb (13.0-17.5) gm/dL Hct (39.0-53.0) % Lymphocytes # (1.0-4.8) k/uL D-Dimer 2.58 H (<0.60) mg/L FEU ABG pH 7.24 L (7.35-7.45) ABG pCO2 64 H (35-45) mmHg ABG pO2 71 L (83-108) mmHg ABG HCO3 27 H (21-25) mmol/L ABG Total CO2 29 H (19-24) mmol/L ABG O2 Saturation 91.9 L (94-97) % BUN 134 H* (9-20) mg/dL Creatinine 3.19 H (0.66-1.25) mg/dL Glucose 204 H (74-99) mg/dL POC Glucose (mg/dL) (75-99) mg/dL Calcium 7.4 L (8.4-10.2) mg/dL Lactate Dehydrogenase 1593 H (313-618) U/L C-Reactive Protein 21.0 H (<1.0) mg/dL Total Protein 5.3 L (6.3-8.2) g/dL Albumin 2.4 L (3.5-5.0) g/dL 07/02/20 Range/Units 12:07 RBC (4.30-5.90) m/uL Hgb (13.0-17.5) gm/dL Hct (39.0-53.0) % Lymphocytes # (1.0-4.8) k/uL D-Dimer (<0.60) mg/L FEU ABG pH (7.35-7.45) ABG pCO2 (35-45) mmHg ABG pO2 (83-108) mmHg ABG HCO3 (21-25) mmol/L ABG Total CO2 (19-24) mmol/L ABG O2 Saturation (94-97) % BUN (9-20) mg/dL Creatinine (0.66-1.25) mg/dL Glucose (74-99) mg/dL POC Glucose (mg/dL) 201 H (75-99) mg/dL Calcium (8.4-10.2) mg/dL Lactate Dehydrogenase (313-618) U/L C-Reactive Protein (<1.0) mg/dL Total Protein (6.3-8.2) g/dL Albumin (3.5-5.0) g/dL Microbiology - Last 24 Hours (Table) 06/27/20 22:24 Blood Culture - Preliminary Blood No Growth after 96 hours 06/27/20 18:31 Blood Culture - Preliminary Blood No Growth after 96 hours
[2020-07-02 18:03] LABS: Glucose,Whole Blood 185 mg/dL (75-99)
--- NOTE | 2020-07-02 18:03 | US ---
EXAMINATION TYPE: US kidneys/renal and bladder DATE OF EXAM: 07/02/2020 COMPARISON: NONE CLINICAL HISTORY: obstruction. EXAM MEASUREMENTS: Right Kidney: 10.9 x 5.9 x 5.9 cm Left Kidney: 12.8 x 5.8 x 6.7 cm Technically difficult exam performed portably in ICU on patient who is unable to cooperate for exam. Right Kidney: Limited visualization due to overlying bowel gas. Left Kidney: No hydronephrosis or masses seen Bladder: not seen, patient has catheter IMPRESSION: No evidence of renal mass or obstruction. No hydronephrosis.
[2020-07-02] MEDS: CLEVIDIPINE BUTYRATE 25 MG in EMPTY BAG 1 BAG IV SCH (18:26)
[2020-07-02 18:34] LABS: Amorphous Sediment,Urine Rare /hpf; Appearance,Urine Cloudy (Clear); Bilirubin,Urine Negative (Negative); Blood,Urine Moderate (Negative); Color,Urine Light Yellow; Glucose,Urine (UA) Negative (Negative); Ketones,Urine Negative (Negative); Leukocyte Esterase,Urine Negative (Negative); Mucus,Urine Rare /hpf; Nitrite,Urine Negative (Negative); PH, Urine 5.5 (5.0-8.0); Protein,Urine 1+ (Negative); RBC,Urine 5 /hpf (0-5); Specific Gravity,Urine 1.012 (1.001-1.035); Squamous Epithelial Cell,Urine 1 /hpf (0-4); Urobilinogen,Urine <2.0 mg/dL (<2.0); WBC,Urine 2 /hpf (0-5)
[2020-07-02 18:43] LABS: Creatinine,Urine Random 16.5 mg/dL
[2020-07-02] MEDS: ENOXAPARIN 40 MG/0.4 ML SYRINGE SQ SCH (20:25)
[2020-07-02 23:56] LABS: Glucose,Whole Blood 203 mg/dL (75-99)
[2020-07-03] MEDS: fentaNYL (PF). 1,000 MCG in SODIUM CHLORIDE 0.9% 80 ML IV SCH ×8 (00:53→22:30)
[2020-07-03] MEDS: methylPREDNISolone SOD SUCCI 125 MG/2 ML VIAL IV SCH ×4 (00:53→19:06)
[2020-07-03] MEDS: ARTIFICIAL TEARS-HYPROMELLOSE DROPS 15 ML BTL BOTH EYES SCH ×6 (00:54→20:58)
[2020-07-03] MEDS: INSULIN ASPART (NovoLOG) 100 UNIT/ML VIAL SQ SCH ×4 (00:54→19:06)
[2020-07-03] MEDS: ROCURONIUM 400 MG in SODIUM CHLORIDE 0.9% 100 ML IV SCH ×2 (01:31→08:59)
[2020-07-03 04:34] LABS: HCT 33.3 % (39.0-53.0); HGB 10.7 gm/dL (13.0-17.5); Hypochromasia Slight; MCH 30.9 pg (25.0-35.0); MCHC 32.2 g/dL (31.0-37.0); Mean Platelet Volume 10.2; Platelet Count 294 k/uL (150-450); RBC 3.47 m/uL (4.30-5.90); RDW 15.1 % (11.5-15.5)
[2020-07-03 04:36] LABS: Albumin 2.7 g/dL (3.5-5.0); Calcium 7.3 mg/dL (8.4-10.2); Total Protein 5.9 g/dL (6.3-8.2); Uric Acid 6.1 mg/dL (3.5-8.5)
[2020-07-03 05:00] LABS: C Reactive Protein 16.3 mg/dL (<1.0); Phosphorus 10.1 mg/dL (2.5-4.5)
[2020-07-03 05:05] LABS: Potassium 5.4 mmol/L (3.5-5.1)
[2020-07-03 05:34] LABS: ABG Base Excess -6.2 mmol/L; ABG HCO3 24 mmol/L (21-25); ABG PO2 69 mmHg (83-108); ABG TCO2 26 mmol/L (19-24); Allen Test Performed? Yes
[2020-07-03 05:38] LABS: ABG PH 7.09 (7.35-7.45)
[2020-07-03 05:39] LABS: ABG PCO2 77 mmHg (35-45)
[2020-07-03 07:05] LABS: Anisocytosis (M) Present; Band Neutrophils % 51 %; Large Platelets Present; Metamyelocytes % 3 %; Myelocytes % 1 %; Neutrophils % (M) 41 %; Nucleated Red Blood Cells 1 /100 WBC (0-0); Total Cells Counted 200; WBC 10.1 k/uL (3.8-10.6)
[2020-07-03 07:06] LABS: Toxic Vacuolation Present
[2020-07-03 07:07] LABS: Polychromasia Present
[2020-07-03 07:08] LABS: Poikilocytosis (M) Present
--- NOTE | 2020-07-03 07:12 | XR ---
EXAMINATION TYPE: XR chest 1V portable DATE OF EXAM: 07/03/2020 COMPARISON: 07/02/2020 HISTORY: Pneumothorax TECHNIQUE: Single frontal view of the chest is obtained. FINDINGS: Bilateral chest tubes are seen is a tracheostomy tube left-sided central line noted. No si zable pneumothorax on the right. There is a less than 5% right-sided diffuse bilateral airspace disea se stable. There is lucency in the right upper quadrant which could represent free intraperitoneal ai r. IMPRESSION: 1. Diffuse airspace disease stable. Less than 5% left apical pneumothorax. 2. Lucency in the right upper quadrant could represent free intraperitoneal air. Report called to angella lozano's nurse 7:09 AM 07/03/2020.
[2020-07-03] MEDS: CHOLECALCIFEROL 25 MCG (1000 IU) TABLET PO SCH (08:26)
[2020-07-03] MEDS: ASCORBIC ACID 500 MG TAB PO SCH (08:26)
[2020-07-03] MEDS: ZINC SULFATE 220 MG CAP PO SCH (08:27)
[2020-07-03] MEDS: FUROSEMIDE 10 MG/ML 10 ML VIAL IV SCH ×2 (08:27→20:57)
[2020-07-03] MEDS: CHLORHEXIDINE GLUCONATE 15 ML CUP MUCOUS MEM SCH ×2 (09:11→20:57)
--- NOTE | 2020-07-03 10:01 | P.PN ---
Subjective Progress Note Date: 07/03/20 Principal diagnosis: Acute hypoxemic respiratory failure secondary to COVID-19 pneumonia Progress note dated 07/02/2020. 55-year-old male, again seen in room 253. The patient was admitted to the hospital on June 13. The patient underwent tracheostomy and PEG tube placement on June 29, for failure to wean from mechanical ventilation. She remains on mechanical ventilator. Settings include the volume assist control mode, rate 34, tidal volume 400, FiO2 80%, and PEEP of 18. Blood gases show pO2 71, pCO2 of 64, pH 7.23. His D5W IV will be converted to KVO. He's currently on propofol at 70 mics per kilogram per minute, fentanyl at 5 mcg/kg/h, and rocuronium at 12 mg/kg/m. The patient is also receiving tube feedings with Nepro, at 29 mL an hour, which is goal. Because of worsening renal function, nephrology will be consulted. Today sodium is down to 138. White count 7.2, hemoglobin 8.8, hematocrit 27.9, and platelet count 228,000. D-dimer is 2.58. Sodium 138, potassium 5, chlorides 105, CO2 27, anion gap 6, BUN 134, creatinine 3.19. LDH is 1593. C-reactive protein is 21. Chest x-ray is unchanged. It shows diffuse bilateral infiltrates. The patient is seen today 07/03/2020 in follow-up in the intensive care unit. He was admitted back in 06/13/2020 for hypoxemic respiratory failure secondary to COVID-19 pneumonia. Subsequently intubated on 06/20/2020. He has now undergone tracheostomy and PEG tube placements on 06/29/2020. Current vent se ttings are assist-control rate of 34, tidal volume 400, FiO2 50% and a PEEP of 18. Morning blood gases revealed a P O2 of 69, pCO2 77, pH 7.09. He is sedated with propofol at 70 mcg/kg/m. Paralyzed with rocuronium at 12 mcg/kg/m. Fentanyl at 5 mcg/kg per hour. D5W at 20 ML's per hour. His culture positive for MSSA. Completed a course of cefepime. Been nourished with Nepro at 20 ML's per hour which is goal. His course has been quite complicated. He has required 2 right-sided chest tubes to be placed and one left-sided chest tube due to spontaneous pneumothoraces. Still with a leak in the right-sided chest tube. Chest x-ray continues to reveal diffuse airspace disease. Increase infiltrate at the right lung base. Less than 5% left apical pneumothorax. There is a lucency in the right upper quadrant that may represent free intraperitoneal air. Surgical services are on the case. Ultrasound of the kidneys revealed no evidence of renal mass or obstruction. No hydronephrosis. Creatinine continues to climb. Currently 3.62. BUN 153. Nephrology is on the case. He did receive Lasix 40 mg IV 2 doses. White count 10.1. Hemoglobin 10.7. Sodium 140. Potassium 5.4. Calcium 7.3. Phosphorous 10.1. LDH 2108. C-reactive protein 16.3. Albumin 2.7. He remains on Lovenox, IV Solu-Medrol, vitamin supplements. Objective - Vital Signs Vital signs: Vital Signs Temp 97.3 F L 07/03/20 08:00 Pulse 88 07/03/20 09:00 Resp 40 H 07/03/20 09:00 BP 103/60 07/02/20 14:00 Pulse Ox 87 L 07/03/20 09:00 Intake & Output 07/02/20 07/03/20 07/03/20 18:59 06:59 18:59 Intake Total 2018.472 0480.000 356 Output Total 1245 1275 185 Balance 611.692 556.000 171 Weight 82 kg 85 kg Intake: IV 526 305 46 Dextrose 5% in Water 1, 460 260 40 000 ml @ 20 mls/hr IV . Q24H [facility] Rx#:[id number] pressure bag 66 45 6 Intake, IV Titration 697.692 876.000 240 Amount Rocuronium 400 mg In 140 109.368 140 Sodium Chloride 0.9% 100 ml @ 5 MCG/KG/MIN 8.82 mls/hr IV .[id number] [facility] Rx #:[id number] fentaNYL (PF). 1,000 mcg 257.692 398.450 In Sodium Chloride 0.9% 80 ml @ Per Protocol IV . Q0M [facility] Rx#:[id number] propofoL 1,000 mg In 300 368.182 100 Empty Bag 1 bag @ Titrate IV .Q0M [facility] Rx#: [id number] Tube Feeding 283 260 40 Other 350 390 30 Output: Chest Tube Drainage 390 380 140 Chest Tube Left 150 60 50 Chest Tube Right 90 170 60 Chest Tube Right Upper 150 150 30 Urine 855 895 45 Other: Voiding Method Indwelling Catheter Indwelling Catheter ABP, PAP, CO, CI - Last Documented Arterial Blood Pressure 132/71 - Exam 55-year-old gentleman, on mechanical ventilator, sedated and paralyzed. There is a midline tracheostomy tube noted. Saturation is 88 %. HEENT examination is grossly unremarkable. Neck supple. Full range of motion. No adenopathy thyromegaly or neck vein distention. Cardiovascular examination reveals regular rhythm rate. S1-S2 normal. No S3 or S4. No discernible murmur noted. Heart rate 80 bpm. Lungs reveal coarse bilateral rhonchi. Bilateral crackles right greater than left, are also noted. There is also subcutaneous emphysema noted in the left chest area. There are bilateral chest tubes, 2 on the right, one on the left. The new right-sided chest tube, that I placed previously, has a significant leak. Abdomen soft bowel sounds are heard. No masses or tenderness. PEG tube is noted. Extremities are intact. No cyanosis clubbing or edema. Skin is without rash or lesion. Neurologic examination could not be assessed as the patient's currently sedated and paralyzed. - Labs CBC & Chem 7: 07/03/20 03:45 07/03/20 03:45 Labs: Abnormal Lab Results - Last 24 Hours (Table) 07/02/20 07/02/20 07/02/20 Range/Units 12:07 16:27 18:01 RBC (4.30-5.90) m/uL Hgb (13.0-17.5) gm/dL Hct (39.0-53.0) % Neutrophils # (Manual) (1.3-7.7) k/uL Lymphocytes # (Manual) (1.0-4.8) k/uL Metamyelocytes # (Man) (0) k/uL Myelocytes # (Manual) (0) k/uL Nucleated RBCs (0-0) /100 WBC ABG pH (7.35-7.45) ABG pCO2 (35-45) mmHg ABG pO2 (83-108) mmHg ABG Total CO2 (19-24) mmol/L ABG O2 Saturation (94-97) % Potassium (3.5-5.1) mmol/L BUN (9-20) mg/dL Creatinine (0.66-1.25) mg/dL Glucose (74-99) mg/dL POC Glucose (mg/dL) 201 H 185 H (75-99) mg/dL Calcium (8.4-10.2) mg/dL Phosphorus (2.5-4.5) mg/dL Lactate Dehydrogenase (313-618) U/L C-Reactive Protein (<1.0) mg/dL Total Protein (6.3-8.2) g/dL Albumin (3.5-5.0) g/dL Urine Protein 1+ H (Negative) Urine Blood Moderate H (Negative) Amorphous Sediment Rare H (None) /hpf Urine Mucus Rare H (None) /hpf 07/02/20 07/03/20 07/03/20 Range/Units 23:54 03:45 03:45 RBC 3.47 L (4.30-5.90) m/uL Hgb 10.7 L (13.0-17.5) gm/dL Hct 33.3 L (39.0-53.0) % Neutrophils # (Manual) 9.20 H (1.3-7.7) k/uL Lymphocytes # (Manual) 0.40 L (1.0-4.8) k/uL Metamyelocytes # (Man) 0.30 H (0) k/uL Myelocytes # (Manual) 0.10 H (0) k/uL Nucleated RBCs 1 H (0-0) /100 WBC ABG pH (7.35-7.45) ABG pCO2 (35-45) mmHg ABG pO2 (83-108) mmHg ABG Total CO2 (19-24) mmol/L ABG O2 Saturation (94-97) % Potassium 5.4 H (3.5-5.1) mmol/L BUN 153 H* (9-20) mg/dL Creatinine 3.62 H (0.66-1.25) mg/dL Glucose 162 H (74-99) mg/dL POC Glucose (mg/dL) 203 H (75-99) mg/dL Calcium 7.3 L (8.4-10.2) mg/dL Phosphorus 10.1 H* (2.5-4.5) mg/dL Lactate Dehydrogenase 2108 H (313-618) U/L C-Reactive Protein 16.3 H (<1.0) mg/dL Total Protein 5.9 L (6.3-8.2) g/dL Albumin 2.7 L (3.5-5.0) g/dL Urine Protein (Negative) Urine Blood (Negative) Amorphous Sediment (None) /hpf Urine Mucus (None) /hpf 07/03/20 Range/Units 05:30 RBC (4.30-5.90) m/uL Hgb (13.0-17.5) gm/dL Hct (39.0-53.0) % Neutrophils # (Manual) (1.3-7.7) k/uL Lymphocytes # (Manual) (1.0-4.8) k/uL Metamyelocytes # (Man) (0) k/uL Myelocytes # (Manual) (0) k/uL Nucleated RBCs (0-0) /100 WBC ABG pH 7.09 L* (7.35-7.45) ABG pCO2 77 H* (35-45) mmHg ABG pO2 69 L (83-108) mmHg ABG Total CO2 26 H (19-24) mmol/L ABG O2 Saturation 88.0 L (94-97) % Potassium (3.5-5.1) mmol/L BUN (9-20) mg/dL Creatinine (0.66-1.25) mg/dL Glucose (74-99) mg/dL POC Glucose (mg/dL) (75-99) mg/dL Calcium (8.4-10.2) mg/dL Phosphorus (2.5-4.5) mg/dL Lactate Dehydrogenase (313-618) U/L C-Reactive Protein (<1.0) mg/dL Total Protein (6.3-8.2) g/dL Albumin (3.5-5.0) g/dL Urine Protein (Negative) Urine Blood (Negative) Amorphous Sediment (None) /hpf Urine Mucus (None) /hpf Microbiology - Last 24 Hours (Table) 06/27/20 22:24 Blood Culture - Preliminary Blood No Growth after 120 hours 06/27/20 18:31 Blood Culture - Preliminary Blood No Growth after 120 hours Assessment and Plan Assessment: 1 Acute hypoxemic respiratory failure secondary to COVID 19 pneumonia/pneumon itis. 2 Status post tracheostomy and PEG tube placement, June 29, for failure to wean from mechanical ventilation. 3 Acute barotrauma from mechanical ventilation, and relatively high PEEP levels, requiring bilateral chest tubes, 2 on the right, and 1 on the left. 4 Oxacillin sensitive staph aureus and Moraxella catarrhalis tracheobronchitis/bronchopneumonia. 5 Hypernatremia. 6 Elevated inflammatory markers. 7 Hypotension, resolved. 8 Hypertension, Cleveprex weaned off. 9 Thrombocytopenia, secondary to sepsis. Plan: The patient was seen and evaluated by Dr. Henry Chest x-ray, ABGs and labs reviewed Increase the respiratory rate to 40, increase FiO2 to 80% Prognosis remains quite guarded and poor at this point We'll attempt to contact family members this morning Continue full supportive care for now We'll continue to follow and make further recommendations based on his clinical status Critical care time 38 minutes I, the cosigning physician, performed a history & physical examination of the patient. Lungs sounds scattered rhonchi, crackles in the bases right greater than left. Maintaining O2 saturations in the high 80s, low 90s on 80% FiO2 with a PEEP of 18. I discussed the assessment and plan of care with my nurse practitioner, Lissette Woodard. I attest to the above note as dictated by her.
--- NOTE | 2020-07-03 10:04 | P.PN ---
Subjective Progress Note Date: 07/03/20 HISTORY OF PRESENT ILLNESS This is a 55-year-old male patient of Dr. Maxwell Alexander with significant past medical history. Patient states he started having symptoms on June 01 and was diagnosed with COVID-19 on June 08. Patient symptoms or body aches and fatigue as well as cough with white sputum production, increasing shortness of breath and measured pulse ox at home which worsened. He complains of headache chills and nausea. Patient presented to [facility] emergency center for evaluation. Patient was afebrile, heart rate 101, blood pressure 114/75, pulse ox 86% on room air. WBC 6.4, hemoglobin 16.2, platelet count 153. D-dimer 0.84. AST 106, ALT 44, alkaline phosphatase 57, LDH 2547. CRP 150. Sodium 129, potassium 4.6, chloride 97, CO2 23, BUN 12 and creatinine 0.84. Blood sugar 114. Chest x-ray reveals extensive pulmonary infiltrates related to pneumonia and ARDS. CTA of the chest reveals no pulmonary embolism. Patchy areas of nodular consolidations in the bilateral lower lobes with groundglass consolidation of the peripheral of the bilateral upper lobes consistent with multifocal infection compatible with Covid pneumonia. No pleural effusions or pneumothorax. Patient has been seen by pulmonary medicine is not a candidate fo r Remdesivir. Convalescent plasma has been ordered as well as Tocilizumab 1 dose. Patient is currently pulse ox 95% on 15 L nonrebreather. 06/15: Repeat chest x-ray reveals worsening infiltrates. Patient is currently on nonrebreather and nasal cannula with pulse ox of 89%. Patient states that he is not sleeping because of coughing. He continues to have cough, shortness of breath. Noted to be tachypneic. Patient states he is eating okay. Melatonin, Flonase and Tessalon Perles added. Patient has been afebrile, heart rate 87, respiratory rate 32, blood pressure 112/70. Repeat blood work reveals WBC 11.4, hemoglobin 15.4, platelet count 208. D-dimer 0.95. Sodium 136 other electrolyt es and renal function normal. Blood sugar 118. AST 96, ALT 67, alkaline phosphatase 70. LDH 2884. C-reactive protein 59.4. 06/16: Patient's pulse ox is 90-92% on high flow nasal cannula at 13 L along with 100% nonrebreather. Patient was seen by Dr. Kern plan is to try and wean off 100% oxygen. Patient states that his breathing is stable today. He continues to have shortness of breath with minimal activity and cough. Patient started on mycelex noemi for thrush. He has been afebrile, heart rate 80, blood pressure 114/69. Repeat chest x-ray reveals improving bilateral lung infiltrat es. Patient is continued on dexamethasone, Lovenox and vitamin supplements. 06/17: Yesterday afternoon, received call the patient had subcutaneous emphysema that was new and stat chest x-ray was ordered. This revealed interval development of subcutaneous emphysema within the bilateral neck. Some pneumo mediastinum may be present as the source. Pneumothorax is identified. This was reviewed by Dr. Kern at the time. Last evening at 2200, A-Team was called for puffiness of the neck and shoulder skin. Repeat chest x-ray revealed prominent interval increase in subcutaneous emphysema pattern. Patient was transferred to the intensive care unit. Patient has been seen in the intensive care unit today. He remains on 15 L high flow nasal cannula in addition to 100% nonrebreather facemask. D-dimer is 17.6, LDH 533. Patient remains on Decadron, Lovenox and supplements. Promethazine was added for cough suppression. Subcutaneous emphysema is stable. 06/18 patient evaluated bedside has worsening subcutaneous emphysema. Does appear anxious on examination. He is on Xanax to 0.25 mg twice a day with no improvement in patient's and slightly. We'll repeat chest x-ray does suggest tiny pneumothorax in addition to subcutaneous emphysema. Patient is currently maintaining oxygen saturation on interval 60 L with FiO2 of 90% with a nonrebreather 100%. Minimum exertion is causing desaturation. Patient appears to have worsening inflammation markers including worsening LDH and liver e nzymes. Pulmonary care for management of the Covid. Continues to keep patient on dexamethasone, convalescent plasma. Patient is not a candidate for remdesivir. We will start patient on Lexapro 10 mg daily at bedtime to help with anxiety. IV fluids switch to D5NS as patient is not eating being on mask and is hungry. 06/19 patient evaluated bedside has worsening subcutaneous emphysema, facial swelling and pneumomediastinum. Patient is alert and keeping saturation 90-92% on BiPAP. He appears anxious and is breathing at 26 respiratory rate per minute. Blood pressure 1:30/74 heart rate of 113.chest x-rays consistent with bilateral subcutaneous emphysema and pneumomediastinum any apical pneumothorax dizzy and chest tube at this point. On evaluation patient's labs patient's leukocytosis and 19 sodium stable at 1:30, creatinine 0.67 and ferritin is 3144 elevated liver enzymes early at 7846 increased from prior low albumin. patient continues to have increased in size the despite initiation of Remeron will increase Remeron to 30 mg at bedtime Xanax increased to 0.5 twice a day fr om 0.25. Ativan can be given if patient is unable to tolerate oral medication. Plan to start patient on TPN tomorrow. Low sodium could be a results of D5W 06/20: Repeat blood work reveals WBC 29.6, hemoglobin 17, platelet count 124. D- dimer greater than 35. Sodium 132, potassium 5.4, chloride 95, CO2 31, BUN 28 creatinine 0.75. Blood sugar 162. AST 131, ALT 92, alkaline phosphatase 310. LDH 9901. CK 501. C-reactive protein 3.7. Patient became more hypoxic during the night with pulse ox down to the low 70s with mental status changes. Patient was intubated and placed on mechanical ventilation. Tidal volume 400, FiO2 of 75% and PEEP of 18. He is on propofol, Nimbex, levo fed was started and he is status post 2 L of IV fluid. He has on a fentanyl drip. Patient has extensive subcutaneous emphysema. Remeron and clotrimazole discontinued 06/21: Patient remains intubated and on mechanical ventilation. Tidal volume 400, FiO2 decreased from 85-80% this morning, PEEP 16. Patient had bilateral chest tubes placed for pneumothorax bilaterally. This was done last evening. Patient is currently on Nimbex, fentanyl, levo fed. He is on tube feedings at goal. Temperature max 100.2, heart rate 107, respiratory rate 33, blood pressure 118/62, pulse ox 90% with goal to keep above 85%. Repeat blood work reveals WBC 15.9, hemoglobin 14.6, platelet count 96. Sodium 137, potassium 5.1, chloride 100, CO2 39, BUN 26 and creatinine 0.69. Phosphorus 7.3. Magnesium 3.0. Total bilirubin 0.7, AST 59, ALT 61, alkaline phosphatase 190. D-dimer 14.6. LDH 3891. CK 902. C-reactive protein 4.1. Repeat chest x-ray reveals persistent severe bilateral subcutaneous emphysema limiting assessment. Underlying groundglass changes persist. Bilateral chest tubes. Right apical pneumothorax smaller 6 mm versus 2 cm previously. Left apical pneumothorax no longer seen. Better demonstrated pneumomediastinum though suspected to have decreased compared to prior exam. Patient does have less subcutaneous emphysema. 06/22: She remains intubated and on mechanical ventilation with tidal volume 400, FiO2 was 100% this morning and decrease to 70, PEEP is 20. Patient is on propofol and fentanyl as well as Nimbex and bicarb drip. He is not on norepinephrine. Patient is on tube feedings at goal. He remains with bilateral chest tubes in place, no air leak. He has been afebrile, heart rate 108, respiratory rate 34, a pressure 108/61, pulse ox is 90%. Repeat blood work reveals WBC 20, hemoglobin 13.7. D-dimer 10.74. CO2 42, BUN 31 creatinine 0.63. Blood sugars running between 130s to 177. Repeat chest x-ray reveals stable findings. patient remains intubated with a tidal volume of 400 FiO2 of 65% PEEP 20. Patient continues to remain sedated and paralyzed on propofol, fentanyl Precedex and Pneumovax. Continues to have chest tubes with slight air leaks noted. Pratibha st x-ray continues to remain the same with bilateral patchy infiltrate and subcutaneous emphysema. Vitals this morning suggests tachycardia 120 respiratory rate 34 saturating 90% on 65% FiO2 blood pressure 128/71 labs suggestive leukocytosis of 17.6 hemoglobin 12.9 ABG drawn at this morning suggests a pH of 7.3 pCO2 86 pO2 77 bicarb 50. Patient's LDH is 12,748. CRP 7. 06/24 patient remains intubated and mechanically ventilated sedated and paralyzed on assist control with a tidal volume of 400 FiO2 60% PEEP on 20 respiratory rate of 14. ABG done this morning suggests a pO2 of 75 pCO2 83. 7.39. Patient continues to remain on propofol and Pneumovax and fentanyl. The bicarb drip discontinued. 10 chest x-ray shows bilateral subcutaneous emphysema with bilateral patchy infiltrates. Concern for small right apical pneumothorax measuring 1.2 cm versus 9 mm previously. Patient continues to have bilateral chest tubes, minimally leak noted in the right-sided chest tube. No air leak on the left-sided chest tube. Patient remains on enteral feeding. In assessment of patient's blood work slight improvement in CRP noted at 4.7H improved to 2733 liver enzymes continue to rise with AST of 90 ALT 105 alkaline phosphatase 2:30. Bicarb increased to 48. Bicarb drip discontinued. Potassium is noted to be high. One dose of Kayexalate ordered 06/25: Patient remains intubated and mechanically ventilated sedated on pressors on assist control and tidal volume of 400 FiO2 PEEP of 20. Respirations of 14. Patient continues to remain on propofol and Pneumovax and fentanyl. The bicarb drip has been discontinued. Today's chest x-ray shows bilateral subcutaneous emphysema bilateral patchy infiltrates they're similar to the prior exam. Patient continues to have bilateral chest tubes. A 14 Angiocath was inserted into his neck to help relieve subcutaneous emphysema. Patient remains on enternal feeding. WCC 60.4, hemoglobin 12.1, platelets 159, potassium 5.1, BUN 48, creatinine 0.63. ABG pH 7.38, pCO2 87, pO2 61, HCO3 51, ABG O2 sat 91. 06/26: Maintained intubated and mechanically ventilated sedated and paralyzed on assist control with FiO2 on 65% and a PEEP of 18. WBC 17, hemoglobin 11.6, potassium 5.3, BUN 48, creatinine 0.64 d-dimer 3.67,. Temperature 99.9. Patient continues to remain on propofol and Pneumovax and fentanyl. Chest x-ray findings similar to prior exam. Angiocath to the left subclavian to help with subcutaneous emphysema. Substance emphysema is improved compared to yesterday with less edema to face and neck. Patient remains on enternal feeding. Bilateral chest tubes in place and draining. 06/27: Patient remain intubated and sedated still required high FiO2 with higher PEEP to keep his pulse ox above 90 percentile. Patient subcutaneous emphysema slightly but better today there is no more swelling and eyelid this point. Patient still sedated. Patient will be going for trach and PEG tube tomorrow, patient probably will require longer term vent management. 06/28: Patient remains in the ICU, still intubated and sedated bilateral chest tubes in place with intermittent air leaks to the right chest tube. He continues on cefepime for positive cultures for MSSA and moraxella. Subcutaneous emphysema status post placement of 14-gauge Angiocath to left neck has improved. He will be going for tracheostomy and PEG tube placement today. Bicarbonate drip was discontinued due to hyponatremia and he was started on D5W. 06/29: A shunt underwent PEG tube and trach placement today. He also had a second right-sided chest tube placed by Dr. manuel last night. Patient now has 2 chest tubes on the right and one on the left. He remains on mechanical ventilation with tidal volume 500, FiO2 70, PEEP of 18. He has been afebrile for 24 hours. Heart rate 101, respiratory rate 36, blood pressure 100/61, pulse ox 96%. WBC 12.7, hemoglobin 10.3, platelet count 139. Sodium 150, potassium 4.6, chloride 107, CO2 42, BUN 83 and creatinine of 1.27. Blood sugars running between 121-168. 06/30: Patient remains in the intensive care unit status post tracheostomy and PEG tube placement yesterday by Dr. Apodaca. Tracheostomy tube remains intact and midline. She remains on ventilator with assist control 34, tidal volume 400, FiO2 70% and PEEP of 18. Oxygen saturation on current mechanical ventilator settings are 89%. He has one left pleural chest tube and 2 right pleural chest tubes. Continuous air leak to one of the right pleural chest tubes. Draining thin scant serosanguineous drainage. Chest x-ray this morning shows resolution of the right-sided pneumothorax. Sputum culture was positive for MSSA, Moraxella and is currently on cefepime and vancomycin. Urine output has been 30-60 mL per hour. Remains on fentanyl drip, propofol drip and Nimbex drip. Repeat blood work reveals WBC 9.3, hemoglobin 9.5, platelet count 152. Sodium 149, potassium 4.5, chloride 111, CO2 38, BUN 94, creatinine 1.97. Blood sugar 114. Patient is currently on dextrose 5%. 07/01: Patient remains with mechanical ventilation with tidal volume 400, FiO2 70% and PEEP of 18, assist control mode of 34. He remains with 2 right-sided chest tubes in 1 left-sided. There is largely on the right-sided chest tube. Repeat chest x-ray reveals bilateral airspace infiltrates persist greatest on the right lung base. No sizable pneumothorax seen at this time. He has been afebrile, heart rate 75, respiratory rate 42, blood pressure 134/70, pulse ox 93%. Repeat blood work reveals WBC 9.8, hemoglobin 9.3, platelet count 196. Sodium 144, potassium 4.8, chloride 108, CO2 31. Renal function is worsening with BUN of 120 and creatinine 2.78. Blood sugars are now running 171-226. Levemir 7 units daily will be added. Patient's girlfriend apparently is upset that she feels she is not getting enough information about the patient. She did get an update this morning from patient's nurse. Dr. Baldwin will contact the patient's girlfriend today. 07/02: Patient remains with mechanical ventilation with a tidal 400 FiO2 of 50% and appears of 18 assist control mode of 34. Patient brings with 2 right-sided chest tubes and 1 left-sided. Chest x-ray shows diffuse partially consolidative opacities in the mid lower lung zones unchanged compared to the prior study. Patient remains afebrile, heart rate 57, pulse rate 34, blood pressure 148/75, 8 8% on mechanical ventilation. W BC 7.2, hemoglobin 8.8, sodium 138, potassium 5.0, BUN 134, creatinine 3.19. 07/03: Patient remains with mechanical ventilation with tidal volume 400 FiO2 of 50% and PEEP at 18 assist control mode of 34. Patient continues to have 2 right-sided chest tubes and 1 left-sided chest tube. Chest x-ray shows airspace disease stable. Less than 5% left apical pneumothorax. Lucency in the right upper quadrant could represent free intraperitoneal air. Patient remains a febrile, respirations 40, blood pressure 128/70, pulse ox 87% on mechanical ventilation. Nephrology was consult in due to increase and creatinine. We will continue with Lasix at 60 mm grams twice a day. Potassium was elevated at 5.4 related to the potassium placement given yesterday. REVIEW OF SYSTEMS Unable to obtain due to intubation. PHYSICAL EXAMINATION Gen: This is a 55-year-old male. He is resting in ICU bed appears to be comfortable. Facial swelling continues. HEENT: Head is atraumatic, normocephalic. Tracheostomy is midline. NECK: Subcutaneous emphysema. chest : Patient currently has 2 right-sided chest tubes and 1 left-sided chest tube.Chest tube noted with minimal air leak noted on the right chest tube no air leak noted on the left chest tube. Breath sounds are diminished bilaterally. Cardiac: Regular rate S1-S2 no S3 or JVD. Abdomen: positive bowel sounds, nondistended, PEG tube in place. Blevins catheter draining clear alex urine.. Extremities trace edema bilaterally. Neurologic exam patient is sedated currently on mechanical ventilation. ASSESSMENT AND PLAN 1. Acute hypoxic respiratory failure secondary to Covid 19 pneumonia requiring intubation and mechanical ventilation on 06/19. Patient has been seen by pulmonary medicine status post Convalescent plasma and Tocilizumab 1 dose. Continue Solu-Medrol 60 mg IV every 6 hours, Lovenox 40 mg subcu daily, vitamins, cefepime 2 g IV piggyback every 8 hours. Patient is off vasopressors. He is status post trach and PEG tube insertion. Lasix 40 mg IV daily 2 doses, potassium 20 mEq 2 doses. 2. Elevated inflammatory markers secondary to Covid 19. Continue to monitor. 3. Acute kidney injury. Nephrology consult appreciated. Continue with Lasix 60 mg IV twice a day. 4. Mild hyponatremia, hypernatremia. Patient is currently on D5W at 50 mL/h. 5. Elevated d-dimer. Acute pulmonary embolism has been ruled out by CTA. 6. Lymphocytopenia secondary to Covid 19. 7. Thrush. Status post treatment 8. Subcutaneous emphysema and pneumomediastinum, stable. Status post bilateral chest tube insertion with improvement. 9. Right-sided pneumothorax status post second chest tube. 10. Thrombocytopenia secondary to Covid. Continue to monitor. 11. Metabolic acidosis. Status post bicarb drip. 12. Hyperglycemia. Continue Accu-Cheks and sliding scale insulin. Levemir 7 units held at this time. 13. GI prophylaxis. Protonix daily. 14. DVT prophylaxis. Lovenox. Prognosis is guarded. Impression and plan of care have been directed as dictated by the signing phys checo. Maira Resendiz nurse practitioner acting as scribe for signing physician. Objective - Vital Signs Vital signs: Vital Signs Temp 97.3 F L 07/03/20 08:00 Pulse 88 07/03/20 09:00 Resp 40 H 07/03/20 09:00 BP 103/60 07/02/20 14:00 Pulse Ox 87 L 07/03/20 09:00 Intake & Output 07/02/20 07/03/20 07/03/20 18:59 06:59 18:59 Intake Total 1869.721 4559.000 456 Output Total 1245 1275 185 Balance 611.692 556.000 271 Weight 82 kg 85 kg Intake: IV 526 305 46 Dextrose 5% in Water 1, 460 260 40 000 ml @ 20 mls/hr IV . Q24H [facility] Rx#:[id number] pressure bag 66 45 6 Intake, IV Titration 697.692 876.000 340 Amount Rocuronium 400 mg In 140 109.368 140 Sodium Chloride 0.9% 100 ml @ 5 MCG/KG/MIN 8.82 mls/hr IV .[id number] [facility] Rx #:[id number] fentaNYL (PF). 1,000 mcg 257.692 398.450 100 In Sodium Chloride 0.9% 80 ml @ Per Protocol IV . Q0M [facility] Rx#:[id number] propofoL 1,000 mg In 300 368.182 100 Empty Bag 1 bag @ Titrate IV .Q0M [facility] Rx#: [id number] Tube Feeding 283 260 40 Other 350 390 30 Output: Chest Tube Drainage 390 380 140 Chest Tube Left 150 60 50 Chest Tube Right 90 170 60 Chest Tube Right Upper 150 150 30 Urine 855 895 45 Other: Voiding Method Indwelling Catheter Indwelling Catheter ABP, PAP, CO, CI - Last Documented Arterial Blood Pressure 132/71 - Labs CBC & Chem 7: 07/03/20 03:45 07/03/20 03:45 Labs: Abnormal Lab Results - Last 24 Hours (Table) 07/02/20 07/02/20 07/02/20 Range/Units 12:07 16:27 18:01 RBC (4.30-5.90) m/uL Hgb (13.0-17.5) gm/dL Hct (39.0-53.0) % Neutrophils # (Manual) (1.3-7.7) k/uL Lymphocytes # (Manual) (1.0-4.8) k/uL Metamyelocytes # (Man) (0) k/uL Myelocytes # (Manual) (0) k/uL Nucleated RBCs (0-0) /100 WBC ABG pH (7.35-7.45) ABG pCO2 (35-45) mmHg ABG pO2 (83-108) mmHg ABG Total CO2 (19-24) mmol/L ABG O2 Saturation (94-97) % Potassium (3.5-5.1) mmol/L BUN (9-20) mg/dL Creatinine (0.66-1.25) mg/dL Glucose (74-99) mg/dL POC Glucose (mg/dL) 201 H 185 H (75-99) mg/dL Calcium (8.4-10.2) mg/dL Phosphorus (2.5-4.5) mg/dL Lactate Dehydrogenase (313-618) U/L C-Reactive Protein (<1.0) mg/dL Total Protein (6.3-8.2) g/dL Albumin (3.5-5.0) g/dL Urine Protein 1+ H (Negative) Urine Blood Moderate H (Negative) Amorphous Sediment Rare H (None) /hpf Urine Mucus Rare H (None) /hpf 07/02/20 07/03/20 07/03/20 Range/Units 23:54 03:45 03:45 RBC 3.47 L (4.30-5.90) m/uL Hgb 10.7 L (13.0-17.5) gm/dL Hct 33.3 L (39.0-53.0) % Neutrophils # (Manual) 9.20 H (1.3-7.7) k/uL Lymphocytes # (Manual) 0.40 L (1.0-4.8) k/uL Metamyelocytes # (Man) 0.30 H (0) k/uL Myelocytes # (Manual) 0.10 H (0) k/uL Nucleated RBCs 1 H (0-0) /100 WBC ABG pH (7.35-7.45) ABG pCO2 (35-45) mmHg ABG pO2 (83-108) mmHg ABG Total CO2 (19-24) mmol/L ABG O2 Saturation (94-97) % Potassium 5.4 H (3.5-5.1) mmol/L BUN 153 H* (9-20) mg/dL Creatinine 3.62 H (0.66-1.25) mg/dL Glucose 162 H (74-99) mg/dL POC Glucose (mg/dL) 203 H (75-99) mg/dL Calcium 7.3 L (8.4-10.2) mg/dL Phosphorus 10.1 H* (2.5-4.5) mg/dL Lactate Dehydrogenase 2108 H (313-618) U/L C-Reactive Protein 16.3 H (<1.0) mg/dL Total Protein 5.9 L (6.3-8.2) g/dL Albumin 2.7 L (3.5-5.0) g/dL Urine Protein (Negative) Urine Blood (Negative) Amorphous Sediment (None) /hpf Urine Mucus (None) /hpf 07/03/20 Range/Units 05:30 RBC (4.30-5.90) m/uL Hgb (13.0-17.5) gm/dL Hct (39.0-53.0) % Neutrophils # (Manual) (1.3-7.7) k/uL Lymphocytes # (Manual) (1.0-4.8) k/uL Metamyelocytes # (Man) (0) k/uL Myelocytes # (Manual) (0) k/uL Nucleated RBCs (0-0) /100 WBC ABG pH 7.09 L* (7.35-7.45) ABG pCO2 77 H* (35-45) mmHg ABG pO2 69 L (83-108) mmHg ABG Total CO2 26 H (19-24) mmol/L ABG O2 Saturation 88.0 L (94-97) % Potassium (3.5-5.1) mmol/L BUN (9-20) mg/dL Creatinine (0.66-1.25) mg/dL Glucose (74-99) mg/dL POC Glucose (mg/dL) (75-99) mg/dL Calcium (8.4-10.2) mg/dL Phosphorus (2.5-4.5) mg/dL Lactate Dehydrogenase (313-618) U/L C-Reactive Protein (<1.0) mg/dL Total Protein (6.3-8.2) g/dL Albumin (3.5-5.0) g/dL Urine Protein (Negative) Urine Blood (Negative) Amorphous Sediment (None) /hpf Urine Mucus (None) /hpf Microbiology - Last 24 Hours (Table) 06/27/20 22:24 Blood Culture - Preliminary Blood No Growth after 120 hours 06/27/20 18:31 Blood Culture - Preliminary Blood No Growth after 120 hours
[2020-07-03] MEDS: LACTULOSE 20 GM/30 ML CUP PO SCH ×2 (10:40→20:57)
[2020-07-03] MEDS: PANTOPRAZOLE 40 MG/10 ML VIAL IVP SCH (11:24)
[2020-07-03 11:53] LABS: Glucose,Whole Blood 186 mg/dL (75-99)
--- NOTE | 2020-07-03 12:32 | P.PN ---
Subjective Progress Note Date: 07/03/20 Follow-up for acute kidney injury. Was making good urine overnight, since morning urine output dropped. Objective - Vital Signs Vital signs: Vital Signs Temp 97.3 F L 07/03/20 08:00 Pulse 90 07/03/20 12:00 Resp 40 H 07/03/20 12:00 BP 103/60 07/02/20 14:00 Pulse Ox 87 L 07/03/20 12:00 Intake & Output 07/02/20 07/03/20 07/03/20 18:59 06:59 18:59 Intake Total 0528.040 1108.000 499 Output Total 1245 1275 205 Balance 611.692 556.000 294 Weight 82 kg 85 kg Intake: IV 526 305 69 Dextrose 5% in Water 1, 460 260 60 000 ml @ 20 mls/hr IV . Q24H [facility] Rx#:[id number] pressure bag 66 45 9 Intake, IV Titration 697.692 876.000 340 Amount Rocuronium 400 mg In 140 109.368 140 Sodium Chloride 0.9% 100 ml @ 5 MCG/KG/MIN 8.82 mls/hr IV .[id number] [facility] Rx #:[id number] fentaNYL (PF). 1,000 mcg 257.692 398.450 100 In Sodium Chloride 0.9% 80 ml @ Per Protocol IV . Q0M [facility] Rx#:[id number] propofoL 1,000 mg In 300 368.182 100 Empty Bag 1 bag @ Titrate IV .Q0M [facility] Rx#: [id number] Tube Feeding 283 260 60 Other 350 390 30 Output: Chest Tube Drainage 390 380 140 Chest Tube Left 150 60 50 Chest Tube Right 90 170 60 Chest Tube Right Upper 150 150 30 Urine 855 895 65 Other: Voiding Method Indwelling Catheter Indwelling Catheter ABP, PAP, CO, CI - Last Documented Arterial Blood Pressure 115/63 - Exam Refer to primary team exam. COVID-19 isolation. - Labs CBC & Chem 7: 07/03/20 03:45 07/03/20 03:45 Labs: Abnormal Lab Results - Last 24 Hours (Table) 07/02/20 07/02/20 07/02/20 Range/Units 16:27 18:01 23:54 RBC (4.30-5.90) m/uL Hgb (13.0-17.5) gm/dL Hct (39.0-53.0) % Neutrophils # (Manual) (1.3-7.7) k/uL Lymphocytes # (Manual) (1.0-4.8) k/uL Metamyelocytes # (Man) (0) k/uL Myelocytes # (Manual) (0) k/uL Nucleated RBCs (0-0) /100 WBC ABG pH (7.35-7.45) ABG pCO2 (35-45) mmHg ABG pO2 (83-108) mmHg ABG Total CO2 (19-24) mmol/L ABG O2 Saturation (94-97) % Potassium (3.5-5.1) mmol/L BUN (9-20) mg/dL Creatinine (0.66-1.25) mg/dL Glucose (74-99) mg/dL POC Glucose (mg/dL) 185 H 203 H (75-99) mg/dL Calcium (8.4-10.2) mg/dL Phosphorus (2.5-4.5) mg/dL Lactate Dehydrogenase (313-618) U/L C-Reactive Protein (<1.0) mg/dL Total Protein (6.3-8.2) g/dL Albumin (3.5-5.0) g/dL Urine Protein 1+ H (Negative) Urine Blood Moderate H (Negative) Amorphous Sediment Rare H (None) /hpf Urine Mucus Rare H (None) /hpf 07/03/20 07/03/20 07/03/20 Range/Units 03:45 03:45 05:30 RBC 3.47 L (4.30-5.90) m/uL Hgb 10.7 L (13.0-17.5) gm/dL Hct 33.3 L (39.0-53.0) % Neutrophils # (Manual) 9.20 H (1.3-7.7) k/uL Lymphocytes # (Manual) 0.40 L (1.0-4.8) k/uL Metamyelocytes # (Man) 0.30 H (0) k/uL Myelocytes # (Manual) 0.10 H (0) k/uL Nucleated RBCs 1 H (0-0) /100 WBC ABG pH 7.09 L* (7.35-7.45) ABG pCO2 77 H* (35-45) mmHg ABG pO2 69 L (83-108) mmHg ABG Total CO2 26 H (19-24) mmol/L ABG O2 Saturation 88.0 L (94-97) % Potassium 5.4 H (3.5-5.1) mmol/L BUN 153 H* (9-20) mg/dL Creatinine 3.62 H (0.66-1.25) mg/dL Glucose 162 H (74-99) mg/dL POC Glucose (mg/dL) (75-99) mg/dL Calcium 7.3 L (8.4-10.2) mg/dL Phosphorus 10.1 H* (2.5-4.5) mg/dL Lactate Dehydrogenase 2108 H (313-618) U/L C-Reactive Protein 16.3 H (<1.0) mg/dL Total Protein 5.9 L (6.3-8.2) g/dL Albumin 2.7 L (3.5-5.0) g/dL Urine Protein (Negative) Urine Blood (Negative) Amorphous Sediment (None) /hpf Urine Mucus (None) /hpf 07/03/20 Range/Units 11:52 RBC (4.30-5.90) m/uL Hgb (13.0-17.5) gm/dL Hct (39.0-53.0) % Neutrophils # (Manual) (1.3-7.7) k/uL Lymphocytes # (Manual) (1.0-4.8) k/uL Metamyelocytes # (Man) (0) k/uL Myelocytes # (Manual) (0) k/uL Nucleated RBCs (0-0) /100 WBC ABG pH (7.35-7.45) ABG pCO2 (35-45) mmHg ABG pO2 (83-108) mmHg ABG Total CO2 (19-24) mmol/L ABG O2 Saturation (94-97) % Potassium (3.5-5.1) mmol/L BUN (9-20) mg/dL Creatinine (0.66-1.25) mg/dL Glucose (74-99) mg/dL POC Glucose (mg/dL) 186 H (75-99) mg/dL Calcium (8.4-10.2) mg/dL Phosphorus (2.5-4.5) mg/dL Lactate Dehydrogenase (313-618) U/L C-Reactive Protein (<1.0) mg/dL Total Protein (6.3-8.2) g/dL Albumin (3.5-5.0) g/dL Urine Protein (Negative) Urine Blood (Negative) Amorphous Sediment (None) /hpf Urine Mucus (None) /hpf Microbiology - Last 24 Hours (Table) 06/27/20 22:24 Blood Culture - Preliminary Blood No Growth after 120 hours 06/27/20 18:31 Blood Culture - Preliminary Blood No Growth after 120 hours Assessment and Plan Assessment: #1 acute kidney injury suspect hemodynamic ATN. Baseline creatinine 0.8 MG per DL. #2 Covid 19 pneumonia on ventilator. #3 barotrauma requiring chest tubes. #4 mild hyperkalemia #5 respiratory acidosis #6 edema Plan: #1 responded to Lasix, overnight good urine output of 2 L. Since morning urine output dropped to 10 mL an hour. #2 urine analysis [place]. Renal ultrasound no obstruction. #3 with worsening renal failure, acidosis, hyperphosphatemia, discussed with the primary team regarding need for renal replacement therapy. #4 family talking about comfort care with multiple comorbid conditions. We will hold onto dialysis until family makes decision. Continue medical management to them. #5 with multiple comorbid conditions, prognosis guarded.
[2020-07-03 14:15] LABS: ABG Base Excess -7.2 mmol/L; ABG HCO3 23 mmol/L (21-25); ABG Oxygen Saturation 89.2 % (94-97); ABG PO2 73 mmHg (83-108); ABG TCO2 25 mmol/L (19-24); Allen Test Performed? Yes
[2020-07-03 14:18] LABS: ABG PH 7.07 (7.35-7.45)
[2020-07-03 14:19] LABS: ABG PCO2 80 mmHg (35-45)
--- NOTE | 2020-07-03 16:09 | P.PN ---
Subjective Progress Note Date: 07/03/20 CHIEF COMPLAINT: COVID pneumonia HISTORY OF PRESENT ILLNESS: The patient is a 55 year old male with Covid pneumonia status post trach and PEG. He has bilateral chest tubes. He has worsening kidney function with creatinine over 3.0. The patient remains in the ICU ventilated and sedated. Nephrology consultation has been obtained. He is tolerating tube feeds. REVIEW OF ORGAN SYSTEMS: On mechanical ventillation. Otherwise unable to answer with vent. Patient has history of left pneumothorax PHYSICAL EXAM: VITALS: Reviewed CONSTITUTIONAL: Well developed and in no acute distress. EYES: Conjuctivae without sclera icterus. HEAD, EARS, NOSE, THROAT: Head is atraumatic, normocephalic. Tracheostomy intact. RESPIRATORY: Non-labored respirations and equal bilateral excursions. Mechanical ventilation CARDIOVASCULAR: Palpable 2+ radial pulses. ABDOMEN: No peritonitis. Gastrostomy tube intact. NEUROLOGIC: No focal or lateralizing signs PSYCH: Sedated SKIN: Good skin turgor. Well perfused. CLINCAL LABS: Reviewed. WBC normal 10.1. REPORT: US kidneys and ureter demonstrates no masses or hydronephrosis. Chest x-ray report confirms questionable pneumothorax. Severe pulmonary disease identified. Free air identified. ASSESSMENT: 1. COVID pneumonia 2. Status post trach and PEG 3. Kidney failure 4. Left apical pneumothorax PLAN: 1. Routine bilateral chest tubes as he is on full ventilation. 2. For history of gastrostomy tube, 3 years expected. Objective - Vital Signs Vital signs: Vital Signs Temp 97.3 F L 07/03/20 08:00 Pulse 87 07/03/20 15:00 Resp 40 H 07/03/20 15:00 BP 103/60 07/03/20 14:00 Pulse Ox 87 L 07/03/20 15:00 Intake & Output 07/02/20 07/03/20 07/03/20 18:59 06:59 18:59 Intake Total 2059.611 8224.000 1075.504 Output Total 1245 1275 285 Balance 611.692 556.000 790.504 Weight 82 kg 85 kg Intake: IV 526 305 184 Dextrose 5% in Water 1, 460 260 160 000 ml @ 20 mls/hr IV . Q24H [facility] Rx#:[id number] pressure bag 66 45 24 Intake, IV Titration 697.692 876.000 521.504 Amount Rocuronium 400 mg In 140 109.368 140 Sodium Chloride 0.9% 100 ml @ 5 MCG/KG/MIN 8.82 mls/hr IV .[id number] [facility] Rx #:[id number] fentaNYL (PF). 1,000 mcg 257.692 398.450 281.504 In Sodium Chloride 0.9% 80 ml @ Per Protocol IV . Q0M [facility] Rx#:[id number] propofoL 1,000 mg In 300 368.182 100 Empty Bag 1 bag @ Titrate IV .Q0M [facility] Rx#: [id number] Tube Feeding 283 260 160 Other 350 390 210 Output: Chest Tube Drainage 390 380 200 Chest Tube Left 150 60 50 Chest Tube Right 90 170 120 Chest Tube Right Upper 150 150 30 Urine 855 895 85 Other: Voiding Method Indwelling Catheter Indwelling Catheter ABP, PAP, CO, CI - Last Documented Arterial Blood Pressure 117/63 - Labs CBC & Chem 7: 07/03/20 03:45 07/03/20 03:45 Labs: Abnormal Lab Results - Last 24 Hours (Table) 07/02/20 07/02/20 07/02/20 Range/Units 16:27 18:01 23:54 RBC (4.30-5.90) m/uL Hgb (13.0-17.5) gm/dL Hct (39.0-53.0) % Neutrophils # (Manual) (1.3-7.7) k/uL Lymphocytes # (Manual) (1.0-4.8) k/uL Metamyelocytes # (Man) (0) k/uL Myelocytes # (Manual) (0) k/uL Nucleated RBCs (0-0) /100 WBC ABG pH (7.35-7.45) ABG pCO2 (35-45) mmHg ABG pO2 (83-108) mmHg ABG Total CO2 (19-24) mmol/L ABG O2 Saturation (94-97) % Potassium (3.5-5.1) mmol/L BUN (9-20) mg/dL Creatinine (0.66-1.25) mg/dL Glucose (74-99) mg/dL POC Glucose (mg/dL) 185 H 203 H (75-99) mg/dL Calcium (8.4-10.2) mg/dL Phosphorus (2.5-4.5) mg/dL Lactate Dehydrogenase (313-618) U/L C-Reactive Protein (<1.0) mg/dL Total Protein (6.3-8.2) g/dL Albumin (3.5-5.0) g/dL Urine Protein 1+ H (Negative) Urine Blood Moderate H (Negative) Amorphous Sediment Rare H (None) /hpf Urine Mucus Rare H (None) /hpf 07/03/20 07/03/20 07/03/20 Range/Units 03:45 03:45 05:30 RBC 3.47 L (4.30-5.90) m/uL Hgb 10.7 L (13.0-17.5) gm/dL Hct 33.3 L (39.0-53.0) % Neutrophils # (Manual) 9.20 H (1.3-7.7) k/uL Lymphocytes # (Manual) 0.40 L (1.0-4.8) k/uL Metamyelocytes # (Man) 0.30 H (0) k/uL Myelocytes # (Manual) 0.10 H (0) k/uL Nucleated RBCs 1 H (0-0) /100 WBC ABG pH 7.09 L* (7.35-7.45) ABG pCO2 77 H* (35-45) mmHg ABG pO2 69 L (83-108) mmHg ABG Total CO2 26 H (19-24) mmol/L ABG O2 Saturation 88.0 L (94-97) % Potassium 5.4 H (3.5-5.1) mmol/L BUN 153 H* (9-20) mg/dL Creatinine 3.62 H (0.66-1.25) mg/dL Glucose 162 H (74-99) mg/dL POC Glucose (mg/dL) (75-99) mg/dL Calcium 7.3 L (8.4-10.2) mg/dL Phosphorus 10.1 H* (2.5-4.5) mg/dL Lactate Dehydrogenase 2108 H (313-618) U/L C-Reactive Protein 16.3 H (<1.0) mg/dL Total Protein 5.9 L (6.3-8.2) g/dL Albumin 2.7 L (3.5-5.0) g/dL Urine Protein (Negative) Urine Blood (Negative) Amorphous Sediment (None) /hpf Urine Mucus (None) /hpf 07/03/20 07/03/20 Range/Units 11:52 14:12 RBC (4.30-5.90) m/uL Hgb (13.0-17.5) gm/dL Hct (39.0-53.0) % Neutrophils # (Manual) (1.3-7.7) k/uL Lymphocytes # (Manual) (1.0-4.8) k/uL Metamyelocytes # (Man) (0) k/uL Myelocytes # (Manual) (0) k/uL Nucleated RBCs (0-0) /100 WBC ABG pH 7.07 L* (7.35-7.45) ABG pCO2 80 H* (35-45) mmHg ABG pO2 73 L (83-108) mmHg ABG Total CO2 25 H (19-24) mmol/L ABG O2 Saturation 89.2 L (94-97) % Potassium (3.5-5.1) mmol/L BUN (9-20) mg/dL Creatinine (0.66-1.25) mg/dL Glucose (74-99) mg/dL POC Glucose (mg/dL) 186 H (75-99) mg/dL Calcium (8.4-10.2) mg/dL Phosphorus (2.5-4.5) mg/dL Lactate Dehydrogenase (313-618) U/L C-Reactive Protein (<1.0) mg/dL Total Protein (6.3-8.2) g/dL Albumin (3.5-5.0) g/dL Urine Protein (Negative) Urine Blood (Negative) Amorphous Sediment (None) /hpf Urine Mucus (None) /hpf Microbiology - Last 24 Hours (Table) 06/27/20 22:24 Blood Culture - Preliminary Blood No Growth after 120 hours 06/27/20 18:31 Blood Culture - Preliminary Blood No Growth after 120 hours
[2020-07-03] MEDS ORDERED: HEPARIN SODIUM 1,000 UN/ML (10ML VL) ONE (17:15)
[2020-07-03] MEDS ORDERED: LIDOCAINE 1% INJ 10MG/ML (20 ML MDV) ONE (17:15)
--- NOTE | 2020-07-03 18:48 | PCN ---
PROCEDURE NOTE PREOP DIAGNOSIS: Acute on chronic renal failure with Covid positive on intubation. POSTOP: Acute on chronic renal failure with Covid positive on intubation. PROCEDURE PERFORMED: Ultrasound-guided dialysis catheter right femoral approach. DESCRIPTION OF PROCEDURE: Patient seen in her room. Right groin was prepped and drapes applied in the usual sterile manner. Ultrasound-guided micropuncture into the right femoral vein. Micropuncture guidewire was passed. After that, 4-[place] dilator advanced on top of the guidewire. Then we passed a regular guidewire without any resistance. The dilator was advanced and then triple lumen dialysis catheter placed on the top of the guidewire with free flow noted. Flushed with heparin saline and hep-locked, secured with 3-0 nylon. Patient tolerated the procedure well. MMODL / IJN: [id number] /
[2020-07-03 19:01] LABS: Glucose,Whole Blood 171 mg/dL (75-99)
[2020-07-03] MEDS: CLEVIDIPINE BUTYRATE 25 MG in EMPTY BAG 1 BAG IV SCH (19:08)
[2020-07-03] MEDS: ENOXAPARIN 40 MG/0.4 ML SYRINGE SQ SCH (20:57)
[2020-07-03] MEDS: DEXTROSE 5% IN WATER 1,000 ML IV SCH (21:50)
[2020-07-03] MEDS ORDERED: CEFEPIME 2 GM in SODIUM CHLORIDE 0.9% 100 ML IVPB SCH (22:00)
[2020-07-03 23:52] LABS: Glucose,Whole Blood 194 mg/dL (75-99)
[2020-07-04] MEDS: INSULIN ASPART (NovoLOG) 100 UNIT/ML VIAL SQ SCH ×4 (00:05→18:10)
[2020-07-04] MEDS: methylPREDNISolone SOD SUCCI 125 MG/2 ML VIAL IV SCH ×4 (00:08→18:10)
[2020-07-04] MEDS: ARTIFICIAL TEARS-HYPROMELLOSE DROPS 15 ML BTL BOTH EYES SCH ×5 (00:09→17:38)
[2020-07-04] MEDS: fentaNYL (PF). 1,000 MCG in SODIUM CHLORIDE 0.9% 80 ML IV SCH ×6 (01:44→17:27)
[2020-07-04] MEDS: ROCURONIUM 400 MG in SODIUM CHLORIDE 0.9% 100 ML IV SCH ×2 (03:12→13:43)
--- NOTE | 2020-07-04 04:37 | PN ---
PROGRESS NOTE DATE OF SERVICE: 07/03/2020 REASON FOR FOLLOWUP: Pneumonia. INTERVAL HISTORY: The patient is currently afebrile. The patient is hemodynamically stable, not on any pressor support. FiO2 is currently stable as well. No significant purulent secretions through the ET reported by nursing staff. The patient did have worsening of his kidney function and has undergoing dialysis catheter placement by Vascular Surgery for dialysis. Tolerating his tube feeds and no diarrhea has been reported. PHYSICAL EXAMINATION: Blood pressure is 103/60 with a pulse of 88, temperature 97.3. General description is a middle-aged male intubated on the vent. Respiratory system: Unlabored breathing with bilateral coarse rhonchi. Heart: S1-S2 regular. Abdomen: Soft, no tenderness. LABS: Hemoglobin is 10.7, white count 10.1. BUN 153, creatinine 3.62. DIAGNOSTIC IMPRESSION AND PLAN: Patient with acute respiratory failure which is multifactorial in this patient who did have a component of pneumonia. Sputum has been MRSA as well as MSSA. Patient covered with cefepime to continue along with respiratory support and monitor clinical course closely. MMODL / IJN: [id number] /
[2020-07-04] MEDS ORDERED: NOREPINEPHRIN 4 MG-0.9% NS PMX 4 MG/250 ML ML IV ONE (04:53)
[2020-07-04 04:57] LABS: HCT 30.8 % (39.0-53.0); HGB 10.1 gm/dL (13.0-17.5); Hypochromasia Slight; MCH 31.4 pg (25.0-35.0); MCHC 32.8 g/dL (31.0-37.0); MCV 95.6 fL (80.0-100.0); Mean Platelet Volume 10.7; Platelet Count 262 k/uL (150-450); RBC 3.22 m/uL (4.30-5.90); RDW 14.9 % (11.5-15.5)
[2020-07-04 05:08] LABS: ABG Base Excess -9.1 mmol/L; ABG HCO3 21 mmol/L (21-25); ABG Oxygen Saturation 84.3 % (94-97); ABG PO2 66 mmHg (83-108); ABG TCO2 24 mmol/L (19-24); Allen Test Performed? Yes
[2020-07-04 05:10] LABS: Albumin 2.5 g/dL (3.5-5.0); Calcium 7.2 mg/dL (8.4-10.2); Total Bilirubin 0.9 mg/dL (0.2-1.3); Total Protein 5.6 g/dL (6.3-8.2)
[2020-07-04 05:10] LABS: ABG PCO2 78 mmHg (35-45); ABG PH 7.05 (7.35-7.45)
[2020-07-04 05:41] LABS: C Reactive Protein 24.2 mg/dL (<1.0); Potassium 6.5 mmol/L (3.5-5.1)
[2020-07-04] MEDS ORDERED: INSULIN REGULAR 100 UNIT/ML VIAL IV ONE (05:48)
[2020-07-04] MEDS ORDERED: DEXTROSE 50% SYRINGE 50 ML IVP STA (05:48)
[2020-07-04 05:53] LABS: Glucose,Whole Blood 188 mg/dL (75-99)
[2020-07-04 06:01] LABS: Total Cells Counted 200
[2020-07-04 06:02] LABS: Anisocytosis (M) Present; Poikilocytosis (M) Present; Toxic Granulation Present; Toxic Vacuolation Present
[2020-07-04] MEDS: NOREPINEPHRINE 8 MG in SODIUM CHLORIDE 0.9% 250 ML IV SCH ×4 (06:04→18:12)
--- NOTE | 2020-07-04 06:29 | P.PN ---
Subjective Progress Note Date: 07/03/20 07/04/2020, the patient is being seen for a follow-up. He remains on a mechanical ventilator for respiratory failure due to complications of COVID-19 related to pneumonia. The patient was emergently intubated on 06/20/2030 and the patient has undergone tracheostomy tube insertion of PEG tube insertion on 06/29/2020. During the course of his treatment, the patient received convalescent plasma and Tocilizumab and steroids Remains on a mechanical ventilator assist control mode with tidal volume of 400 and FiO2 of 100% with a PEEP of 18 and the respiratory rate of 40. Overnight, the patient became h ypoxic and had to be brought up to 100% with an FiO2 of 100% and a rate of 40. Blood gases from this morning Shows a pH of 7.05 with a pCO2 of 78 and pO2 of 66.. His chest x-ray from today showing bilateral chest tubes as the patient has 2 right-sided chest tube and 1 left-sided chest tube. There is a loculated pneumothorax in the right lung base. There is evidence of normal mediastinum. The patient also has a triple lumen cath in his left subclavian. Tracheostomy tube is in a good location.The patient remains sedated with propofol running at 70 mcg/kg per minute and the patient is also on rocuronium paralytic 8 mcg/kg per minute. The patient is also on fentanyl at 5 mcg/kg per minute. In terms of treatment, the patient remains on IV Solu Medrol 60 mg every 6 hours. He had required 2 right-sided chest tubes and 1 left sided chest tube for complicated pneumothoraces. The patient has constant air leak on the right side, none on the left. The patient is losing volumes. Injury in fact, the returning tidal volume from his vent check revealed that the patient is seeing tidal volumes of 400 and the returning tidal volumes around the 20 and this is probably attributed to the constant air leak. The peak airway pressures around 48. Static pressure cannot be measured as the patient has constant air leak. The patient has no significant subcutaneous emphysema. Tracheostomy tube is in a good location. He has a left subclavian triple-lumen catheter which is in place and a chest x-ray still showing diffuse airspace disease bilaterally with some minimal mediastinum. No clear evidence of any pneumothorax at this point in time. The patient has an LDH level of 04/04/2007, CRP of 16.3 from 07/03/2020. His course was further complicated infections with MSSA and Moraxella catarrhalis was cultured from the sputum and the patient is covered with antibiotics regarding possibility of superinfection/pneumonia. The patient is currently on IV cefepime. He has also developed an acute kidney injury secondary to ATN. He was producing adequate amount of urine output. However, overnight his urine output dropped down to 25 mL overnight. He was given Lasix without any urine output, dialysis catheter was inserted yesterday and the patient received a session of hemodialysis yesterday with ultrafiltration of around 1.5 L. This morning, his potassium level is up to 6.5 and this was treated with D5 insulin and dialysis session to be done again this morning. Also, his creatinine is up to 3.9. His LDH from this morning is 2435 and his CRP level is at 24 and his white cell count is still pending with a hemoglobin of 10.1 and a platelet of 262. Objective - Vital Signs Vital signs: Vital Signs Temp 97.3 F L 07/03/20 08:00 Pulse 90 07/03/20 18:00 Resp 40 H 07/03/20 18:00 BP 103/60 07/03/20 14:00 Pulse Ox 85 L 07/03/20 18:00 Intake & Output 07/03/20 07/03/20 07/04/20 06:59 18:59 06:59 Intake Total 0135.079 6750.504 Output Total 1275 455 Balance 556.000 809.504 Weight 85 kg Intake: IV 305 253 Dextrose 5% in Water 1, 260 220 000 ml @ 20 mls/hr IV . Q24H [facility] Rx#:[id number] pressure bag 45 33 Intake, IV Titration 876.000 521.504 Amount Rocuronium 400 mg In 109.368 140 Sodium Chloride 0.9% 100 ml @ 5 MCG/KG/MIN 8.82 mls/hr IV .[id number] [facility] Rx #:[id number] fentaNYL (PF). 1,000 mcg 398.450 281.504 In Sodium Chloride 0.9% 80 ml @ Per Protocol IV . Q0M [facility] Rx#:[id number] propofoL 1,000 mg In 368.182 100 Empty Bag 1 bag @ Titrate IV .Q0M [facility] Rx#: [id number] Tube Feeding 260 220 Other 390 270 Output: Chest Tube Drainage 380 360 Chest Tube Left 60 90 Chest Tube Right 170 120 Chest Tube Right Upper 150 150 Urine 895 95 Other: Voiding Method Indwelling Catheter Indwelling Catheter ABP, PAP, CO, CI - Last Documented Arterial Blood Pressure 111/63 - Exam 55-year-old gentleman, on mechanical ventilator, sedated and paralyzed. There is a midline tracheostomy tube noted. The patient has a constant air leak through the right-sided chest tube. The patient is still losing volumes in the order of 100 mL of air based on the measurements obtained from the mechanical ventilator. The patient is sedated. The patient is paralyzed. Head exam was generally normal. There was no scleral icterus or corneal arcus. Mucous membranes were moist. Neck supple. Full range of motion. No adenopathy thyromegaly or neck vein distention. The patient has tracheostomy tube in place Cardiovascular examination reveals regular rhythm rate. S1-S2 normal. No S3 or S4. No discernible murmur noted. Lungs reveal coarse bilateral rhonchi. Bilateral crackles right greater than left, are also noted. There is also subcutaneous emphysema noted in the left chest area. There are bilateral chest tubes, 2 on the right, one on the left. There is a wide-open air leak through the right-sided chest tube Abdomen soft bowel sounds are heard. No masses or tenderness. PEG tube is noted. Extremities are intact. No cyanosis clubbing or edema. Skin is without rash or lesion. Neurologic examination could not be assessed as the patient's currently sedated and paralyzed. - Labs CBC & Chem 7: 07/04/20 04:42 07/04/20 04:42 Labs: Abnormal Lab Results - Last 24 Hours (Table) 07/02/20 07/03/20 07/03/20 Range/Units 23:54 03:45 03:45 RBC 3.47 L (4.30-5.90) m/uL Hgb 10.7 L (13.0-17.5) gm/dL Hct 33.3 L (39.0-53.0) % Neutrophils # (Manual) 9.20 H (1.3-7.7) k/uL Lymphocytes # (Manual) 0.40 L (1.0-4.8) k/uL Metamyelocytes # (Man) 0.30 H (0) k/uL Myelocytes # (Manual) 0.10 H (0) k/uL Nucleated RBCs 1 H (0-0) /100 WBC ABG pH (7.35-7.45) ABG pCO2 (35-45) mmHg ABG pO2 (83-108) mmHg ABG Total CO2 (19-24) mmol/L ABG O2 Saturation (94-97) % Potassium 5.4 H (3.5-5.1) mmol/L BUN 153 H* (9-20) mg/dL Creatinine 3.62 H (0.66-1.25) mg/dL Glucose 162 H (74-99) mg/dL POC Glucose (mg/dL) 203 H (75-99) mg/dL Calcium 7.3 L (8.4-10.2) mg/dL Phosphorus 10.1 H* (2.5-4.5) mg/dL Lactate Dehydrogenase 2108 H (313-618) U/L C-Reactive Protein 16.3 H (<1.0) mg/dL Total Protein 5.9 L (6.3-8.2) g/dL Albumin 2.7 L (3.5-5.0) g/dL 07/03/20 07/03/20 07/03/20 Range/Units 05:30 11:52 14:12 RBC (4.30-5.90) m/uL Hgb (13.0-17.5) gm/dL Hct (39.0-53.0) % Neutrophils # (Manual) (1.3-7.7) k/uL Lymphocytes # (Manual) (1.0-4.8) k/uL Metamyelocytes # (Man) (0) k/uL Myelocytes # (Manual) (0) k/uL Nucleated RBCs (0-0) /100 WBC ABG pH 7.09 L* 7.07 L* (7.35-7.45) ABG pCO2 77 H* 80 H* (35-45) mmHg ABG pO2 69 L 73 L (83-108) mmHg ABG Total CO2 26 H 25 H (19-24) mmol/L ABG O2 Saturation 88.0 L 89.2 L (94-97) % Potassium (3.5-5.1) mmol/L BUN (9-20) mg/dL Creatinine (0.66-1.25) mg/dL Glucose (74-99) mg/dL POC Glucose (mg/dL) 186 H (75-99) mg/dL Calcium (8.4-10.2) mg/dL Phosphorus (2.5-4.5) mg/dL Lactate Dehydrogenase (313-618) U/L C-Reactive Protein (<1.0) mg/dL Total Protein (6.3-8.2) g/dL Albumin (3.5-5.0) g/dL 07/03/20 Range/Units 18:59 RBC (4.30-5.90) m/uL Hgb (13.0-17.5) gm/dL Hct (39.0-53.0) % Neutrophils # (Manual) (1.3-7.7) k/uL Lymphocytes # (Manual) (1.0-4.8) k/uL Metamyelocytes # (Man) (0) k/uL Myelocytes # (Manual) (0) k/uL Nucleated RBCs (0-0) /100 WBC ABG pH (7.35-7.45) ABG pCO2 (35-45) mmHg ABG pO2 (83-108) mmHg ABG Total CO2 (19-24) mmol/L ABG O2 Saturation (94-97) % Potassium (3.5-5.1) mmol/L BUN (9-20) mg/dL Creatinine (0.66-1.25) mg/dL Glucose (74-99) mg/dL POC Glucose (mg/dL) 171 H (75-99) mg/dL Calcium (8.4-10.2) mg/dL Phosphorus (2.5-4.5) mg/dL Lactate Dehydrogenase (313-618) U/L C-Reactive Protein (<1.0) mg/dL Total Protein (6.3-8.2) g/dL Albumin (3.5-5.0) g/dL Microbiology - Last 24 Hours (Table) 06/27/20 22:24 Blood Culture - Preliminary Blood No Growth after 120 hours 06/27/20 18:31 Blood Culture - Preliminary Blood No Growth after 120 hours Assessment and Plan Plan: 1 Acute hypoxemic respiratory failure secondary to COVID 19 pneumonia/pneumonitis.post Convalescent plasma and Tocilizumab 1 dose. Continue Solu-Medrol 60 mg IV every 6 hours, Lovenox 40 mg subcu daily, vitamins, cefepime 2 g IV piggyback every 8 hours. Due to prolonged intubation mechanical ventilation, the patient required a insertion of a tracheostomy tube insertion for long-term ventilator use and support in addition to her PEG tube for enteral feeding and nutritional support. Patient has also complication of bilateral pneumothoraces requiring bilateral chest tube insertion. Patient also developed subcutaneous emphysema and pneumomediastinum. There is also possibility of superinfection with bacteria including emesis and Moraxella catarrhalis. Currently the patient is to be cefepime..Blood gases continued to show significant respiratory acidosis. Meanwhile, the patient continues to have a wide-open air leak through the right-sided chest tube. The patient is losing volumes in order of 100 mL of air and generating tidal volumes of around 320. Peak airway pressure is significantly elevated. Furthermore, the patient has become hypotensive earlier this morning reporting pressors and the patient is currently on norepinephrine infusion running at 0.1 mcg/kg per minute. 2 Status post tracheostomy and PEG tube placement, June 29, for failure to wean from mechanical ventilation. 3 Acute barotrauma from mechanical ventilation, and relatively high PEEP levels, requiring bilateral chest tubes, 2 on the right, and 1 on the left. Persistent air leak from the right-sided chest tube 4 MSSA/ staph aureus and Moraxella catarrhalis tracheobronchitis/bronchopneumonia. The patient is currently back on IV cefepime 5 Hypernatremia, recovered 6 acute kidney injury, with progressive worsening in the renal function secondary to ATN with diminished urine output, dialysis catheter inserted on 07/03/2020 and dialysis was initiated and the patient received a session of hemodialysis yesterday. Potassium level is at 6.5 7 Hypotension, patient is back on pressors and the patient is currently on norepinephrine infusion running at 0.1 mcg/kg per minute. 8 Hypertension, history of 9 Thrombocytopenia, secondary to sepsis, recovered and the patient is still on Lovenox for the prophylaxis. 10 acute hyperkalemia secondary to renal failure Plan Continue ventilator support Would like to get a CAT scan of the chest if possible to assess the location of the right-sided chest tube. Unable to ventilate the patient appropriately because of the ongoing air leak. Chest x-ray was reviewed and the patient continues to have a loculated right- sided pneumothorax History of the chest tubes in place Continue IV Solu-Medrol IV cefepime Pressors with norepinephrine infusion at 0.1 mcg/kg per minute and the dose will be titrated to maintain mean arterial pressure above 65 Enteral feeding for nutritional support CAT scan of the chest, no contrast Lovenox for DVT prophylaxis Dialysis per nephrology , a repeat dialysis to be done today Hemodynamically stable We'll continue to follow Condition is critical and this evaluation was done and more than 30 minutes Time with Patient: Greater than 30
[2020-07-04] MEDS ORDERED: LABETALOL 200 MG in SODIUM CHLORIDE 0.9% 160 ML IV SCH (07:00)
--- NOTE | 2020-07-04 07:15 | XR ---
EXAMINATION TYPE: XR chest 1V DATE OF EXAM: 07/04/2020 COMPARISON: 07/03/2020 HISTORY: Shortness of breath TECHNIQUE: Single frontal view of the chest is obtained. FINDINGS: Diffuse bilateral airspace disease seen with right-sided pleural effusion. Bilateral chest tubes noted. Central line and tracheostomy tube stable. Heart size unchanged. Lucency along the uppe r right quadrant of the abdomen again noted. Suspect a small amount of pneumomediastinum or pericardi um. IMPRESSION: 1. Stable diffuse airspace disease with right pleural effusion. Suspect a small amount of pneumomedia stinum. 2. Lucency in the upper quadrant of the abdomen again could represent free intraperitoneal air.
--- NOTE | 2020-07-04 07:35 | P.PN ---
Subjective Progress Note Date: 07/04/20 07/04/2020, the patient is being seen for a follow-up. He remains on a mechanical ventilator for respiratory failure due to complications of COVID-19 related to pneumonia. The patient was emergently intubated on 06/20/2030 and the patient has undergone tracheostomy tube insertion of PEG tube insertion on 06/29/2020. During the course of his treatment, the patient received convalescent plasma and Tocilizumab and steroids Remains on a mechanical ventilator assist control mode with tidal volume of 400 and FiO2 of 100% with a PEEP of 18 and the respiratory rate of 40. Overnight, the patient became h ypoxic and had to be brought up to 100% with an FiO2 of 100% and a rate of 40. Blood gases from this morning Shows a pH of 7.05 with a pCO2 of 78 and pO2 of 66.. His chest x-ray from today showing bilateral chest tubes as the patient has 2 right-sided chest tube and 1 left-sided chest tube. There is a loculated pneumothorax in the right lung base. There is evidence of normal mediastinum. The patient also has a triple lumen cath in his left subclavian. Tracheostomy tube is in a good location.The patient remains sedated with propofol running at 70 mcg/kg per minute and the patient is also on rocuronium paralytic 8 mcg/kg per minute. The patient is also on fentanyl at 5 mcg/kg per minute. In terms of treatment, the patient remains on IV Solu Medrol 60 mg every 6 hours. He had required 2 right-sided chest tubes and 1 left sided chest tube for complicated pneumothoraces. The patient has constant air leak on the right side, none on the left. The patient is losing volumes. Injury in fact, the returning tidal volume from his vent check revealed that the patient is seeing tidal volumes of 400 and the returning tidal volumes around the 20 and this is probably attributed to the constant air leak. The peak airway pressures around 48. Static pressure cannot be measured as the patient has constant air leak. The patient has no significant subcutaneous emphysema. Tracheostomy tube is in a good location. He has a left subclavian triple-lumen catheter which is in place and a chest x-ray still showing diffuse airspace disease bilaterally with some minimal mediastinum. No clear evidence of any pneumothorax at this point in time. The patient has an LDH level of 04/04/2007, CRP of 16.3 from 07/03/2020. His course was further complicated infections with MSSA and Moraxella catarrhalis was cultured from the sputum and the patient is covered with antibiotics regarding possibility of superinfection/pneumonia. The patient is currently on IV cefepime. He has also developed an acute kidney injury secondary to ATN. He was producing adequate amount of urine output. However, overnight his urine output dropped down to 25 mL overnight. He was given Lasix without any urine output, dialysis catheter was inserted yesterday and the patient received a session of hemodialysis yesterday with ultrafiltration of around 1.5 L. This morning, his potassium level is up to 6.5 and this was treated with D5 insulin and dialysis session to be done again this morning. Also, his creatinine is up to 3.9. His LDH from this morning is 2435 and his CRP level is at 24 and his white cell count is still pending with a hemoglobin of 10.1 and a platelet of 262. Objective - Vital Signs Vital signs: Vital Signs Temp 96.1 F L 07/04/20 04:00 Pulse 90 07/04/20 07:00 Resp 40 H 07/04/20 07:00 BP 95/61 07/04/20 04:00 Pulse Ox 84 L 07/04/20 07:00 Intake & Output 07/03/20 07/04/20 07/04/20 18:59 06:59 18:59 Intake Total 8893.819 1681.633 253.963 Output Total 455 1847 0 Balance 1149.504 -534.367 253.963 Weight 85.2 kg Intake: IV 253 296 23 Dextrose 5% in Water 1, 220 230 20 000 ml @ 20 mls/hr IV . Q24H [facility] Rx#:[id number] pressure bag 33 66 3 Intake, IV Titration 861.504 566.633 180.963 Amount Rocuronium 400 mg In 280 0.265 Sodium Chloride 0.9% 100 ml @ 5 MCG/KG/MIN 8.82 mls/hr IV .[id number] [facility] Rx #:[id number] fentaNYL (PF). 1,000 mcg 381.504 287.854 80.963 In Sodium Chloride 0.9% 80 ml @ Per Protocol IV . Q0M [facility] Rx#:[id number] propofoL 1,000 mg In 200 278.514 100 Empty Bag 1 bag @ Titrate IV .Q0M [facility] Rx#: [id number] Tube Feeding 220 180 20 Other 270 270 30 Output: Chest Tube Drainage 360 320 Chest Tube Left 90 60 Chest Tube Right 120 90 Chest Tube Right Upper 150 170 Urine 95 27 0 Hemodialysis 1500 Other: Voiding Method Indwelling Catheter Indwelling Catheter ABP, PAP, CO, CI - Last Documented Arterial Blood Pressure 89/49 - Exam 55-year-old gentleman, on mechanical ventilator, sedated and paralyzed. There is a midline tracheostomy tube noted. The patient has a constant air leak through the right-sided chest tube. The patient is still losing volumes in the order of 100 mL of air based on the measurements obtained from the mechanical ventilator. The patient is sedated. The patient is paralyzed. Head exam was generally normal. There was no scleral icterus or corneal arcus. Mucous membranes were moist. Neck supple. Full range of motion. No adenopathy thyromegaly or neck vein distention. The patient has tracheostomy tube in place Cardiovascular examination reveals regular rhythm rate. S1-S2 normal. No S3 or S4. No discernible murmur noted. Lungs reveal coarse bilateral rhonchi. Bilateral crackles right greater than left, are also noted. There is also subcutaneous emphysema noted in the left chest area. There are bilateral chest tubes, 2 on the right, one on the left. There is a wide-open air leak through the right-sided chest tube Abdomen soft bowel sounds are heard. No masses or tenderness. PEG tube is note d. Extremities are intact. No cyanosis clubbing or edema. Skin is without rash or lesion. Neurologic examination could not be assessed as the patient's currently sedated and paralyzed. - Labs CBC & Chem 7: 07/04/20 04:42 07/04/20 04:42 Labs: Abnormal Lab Results - Last 24 Hours (Table) 07/03/20 07/03/20 07/03/20 Range/Units 11:52 14:12 18:59 RBC (4.30-5.90) m/uL Hgb (13.0-17.5) gm/dL Hct (39.0-53.0) % ABG pH 7.07 L* (7.35-7.45) ABG pCO2 80 H* (35-45) mmHg ABG pO2 73 L (83-108) mmHg ABG Total CO2 25 H (19-24) mmol/L ABG O2 Saturation 89.2 L (94-97) % Sodium (137-145) mmol/L Potassium (3.5-5.1) mmol/L BUN (9-20) mg/dL Creatinine (0.66-1.25) mg/dL Glucose (74-99) mg/dL POC Glucose (mg/dL) 186 H 171 H (75-99) mg/dL Calcium (8.4-10.2) mg/dL Alkaline Phosphatase (38-126) U/L Lactate Dehydrogenase (313-618) U/L C-Reactive Protein (<1.0) mg/dL Total Protein (6.3-8.2) g/dL Albumin (3.5-5.0) g/dL 07/03/20 07/04/20 07/04/20 Range/Units 23:48 04:42 04:42 RBC 3.22 L (4.30-5.90) m/uL Hgb 10.1 L (13.0-17.5) gm/dL Hct 30.8 L (39.0-53.0) % ABG pH (7.35-7.45) ABG pCO2 (35-45) mmHg ABG pO2 (83-108) mmHg ABG Total CO2 (19-24) mmol/L ABG O2 Saturation (94-97) % Sodium 136 L (137-145) mmol/L Potassium 6.5 H* (3.5-5.1) mmol/L BUN 142 H* (9-20) mg/dL Creatinine 3.91 H (0.66-1.25) mg/dL Glucose 145 H (74-99) mg/dL POC Glucose (mg/dL) 194 H (75-99) mg/dL Calcium 7.2 L (8.4-10.2) mg/dL Alkaline Phosphatase 137 H (38-126) U/L Lactate Dehydrogenase 2435 H (313-618) U/L C-Reactive Protein 24.2 H (<1.0) mg/dL Total Protein 5.6 L (6.3-8.2) g/dL Albumin 2.5 L (3.5-5.0) g/dL 07/04/20 07/04/20 Range/Units 05:05 05:51 RBC (4.30-5.90) m/uL Hgb (13.0-17.5) gm/dL Hct (39.0-53.0) % ABG pH 7.05 L* (7.35-7.45) ABG pCO2 78 H* (35-45) mmHg ABG pO2 66 L (83-108) mmHg ABG Total CO2 (19-24) mmol/L ABG O2 Saturation 84.3 L (94-97) % Sodium (137-145) mmol/L Potassium (3.5-5.1) mmol/L BUN (9-20) mg/dL Creatinine (0.66-1.25) mg/dL Glucose (74-99) mg/dL POC Glucose (mg/dL) 188 H (75-99) mg/dL Calcium (8.4-10.2) mg/dL Alkaline Phosphatase (38-126) U/L Lactate Dehydrogenase (313-618) U/L C-Reactive Protein (<1.0) mg/dL Total Protein (6.3-8.2) g/dL Albumin (3.5-5.0) g/dL Microbiology - Last 24 Hours (Table) 06/27/20 22:24 Blood Culture - Final Blood No Growth after 144 hours 06/27/20 18:31 Blood Culture - Final Blood No Growth after 144 hours Assessment and Plan Plan: 1 Acute hypoxemic respiratory failure secondary to COVID 19 pneumonia/pneumonitis.post Convalescent plasma and Tocilizumab 1 dose. Continue Solu-Medrol 60 mg IV every 6 hours, Lovenox 40 mg subcu daily, vitamins, cefepime 2 g IV piggyback every 8 hours. Due to prolonged intubation mechanical ventilation, the patient required a insertion of a tracheostomy tube insertion for long-term ventilator use and support in addition to her PEG tube for enteral feeding and nutritional support. Patient has also complication of bilateral pneumothoraces requiring bilateral chest tube insertion. Patient also developed subcutaneous emphysema and pneumomediastinum. There is also possibility of superinfection with bacteria including emesis and Moraxella catarrhalis. Currently the patient is to be cefepime..Blood gases continued to show significant respiratory acidosis. Meanwhile, the patient continues to have a wide-open air leak through the right-sided chest tube. The patient is losing volumes in order of 100 mL of air and generating tidal volumes of around 320. Peak airway pressure is significantly elevated. Furthermore, the patient has b ecome hypotensive earlier this morning reporting pressors and the patient is currently on norepinephrine infusion running at 0.1 mcg/kg per minute. 2 Status post tracheostomy and PEG tube placement, June 29, for failure to wean from mechanical ventilation. 3 Acute barotrauma from mechanical ventilation, and relatively high PEEP levels, requiring bilateral chest tubes, 2 on the right, and 1 on the left. Persistent air leak from the right-sided chest tube 4 MSSA/ staph aureus and Moraxella catarrhalis tracheobronchitis/bronchopneumonia. The patient is currently back on IV cefepime 5 Hypernatremia, recovered 6 acute kidney injury, with progressive worsening in the renal function seconda ry to ATN with diminished urine output, dialysis catheter inserted on 07/03/2020 and dialysis was initiated and the patient received a session of hemodialysis yesterday. Potassium level is at 6.5 7 Hypotension, patient is back on pressors and the patient is currently on norepinephrine infusion running at 0.1 mcg/kg per minute. 8 Hypertension, history of 9 Thrombocytopenia, secondary to sepsis, recovered and the patient is still on Lovenox for the prophylaxis. 10 acute hyperkalemia secondary to renal failure Plan Continue ventilator support Would like to get a CAT scan of the chest if possible to assess the location of the right-sided chest tube. Unable to ventilate the patient appropriately because of the ongoing air leak. Chest x-ray was reviewed and the patient continues to have a loculated right- sided pneumothorax History of the chest tubes in place Continue IV Solu-Medrol IV cefepime Pressors with norepinephrine infusion at 0.1 mcg/kg per minute and the dose will be titrated to maintain mean arterial pressure above 65 Enteral feeding for nutritional support CAT scan of the chest, no contrast Lovenox for DVT prophylaxis Dialysis per nephrology , a repeat dialysis to be done today Hemodynamically stable We'll continue to follow Condition is critical and this evaluation was done and more than 30 minutes
[2020-07-04] MEDS: FUROSEMIDE 10 MG/ML 10 ML VIAL IV SCH (08:24)
[2020-07-04 08:35] LABS: Band Neutrophils % 24 %; Metamyelocytes # (M) 0.54 k/uL (0); Metamyelocytes % 4 %; Myelocytes # (M) 0.54 k/uL (0); Myelocytes % 4 %; Neutrophils % (M) 64 %; Promyelocytes # (M) 0.27 k/uL (0); Promyelocytes % 2 %
[2020-07-04 08:38] LABS: Large Platelets Present
[2020-07-04 08:40] LABS: Nucleated Red Blood Cells 1 /100 WBC (0-0)
[2020-07-04 08:42] LABS: WBC 13.4 k/uL (3.8-10.6)
[2020-07-04 08:45] LABS: Lymphocytes # (M) 0.41 k/uL (1.0-4.8); Monocytes # (M) 0.14 k/uL (0-1.0)
[2020-07-04] MEDS: ASCORBIC ACID 500 MG TAB PO SCH (09:11)
[2020-07-04] MEDS: CHOLECALCIFEROL 25 MCG (1000 IU) TABLET PO SCH (09:12)
[2020-07-04] MEDS: ZINC SULFATE 220 MG CAP PO SCH (09:13)
[2020-07-04] MEDS: PANTOPRAZOLE 40 MG/10 ML VIAL IVP SCH (09:13)
[2020-07-04] MEDS: CHLORHEXIDINE GLUCONATE 15 ML CUP MUCOUS MEM SCH (09:13)
[2020-07-04] MEDS: LACTULOSE 20 GM/30 ML CUP PO SCH (10:16)
--- NOTE | 2020-07-04 10:46 | CONS ---
DATE OF CONSULTATION: 07/04/2020 This is a 55-year-old gentleman. I was consulted for urgent dialysis catheter placement in intensive care unit. Patient has been on a ventilator and has been diagnosed with COVID positive. The patient has no history of DVT or pulmonary embolism. Plan is placement of dialysis catheter. PHYSICAL EXAMINATION: On examination, patient has been intubated. Neck is supple. Chest has crackles bilateral. Abdomen is protuberant. No peritoneal sign noted. Femorals are 1+ bilateral. PLAN: Placement of the dialysis catheter. Risks and complications discussed. MMODL / IJN: [id number] / MTDD
--- NOTE | 2020-07-04 10:50 | P.PN ---
Subjective Progress Note Date: 07/04/20 HISTORY OF PRESENT ILLNESS This is a 55-year-old male patient of Dr. Maxwell Alexander with significant past medical history. Patient states he started having symptoms on June 01 and was diagnosed with COVID-19 on June 08. Patient symptoms or body aches and fatigue as well as cough with white sputum production, increasing shortness of breath and measured pulse ox at home which worsened. He complains of headache chills and nausea. Patient presented to [facility] emergency center for evaluation. Patient was afebrile, heart rate 101, blood pressure 114/75, pulse ox 86% on room air. WBC 6.4, hemoglobin 16.2, platelet count 153. D-dimer 0.84. AST 106, ALT 44, alkaline phosphatase 57, LDH 2547. CRP 150. Sodium 129, potassium 4.6, chloride 97, CO2 23, BUN 12 and creatinine 0.84. Blood sugar 114. Chest x-ray reveals extensive pulmonary infiltrates related to pneumonia and ARDS. CTA of the chest reveals no pulmonary embolism. Patchy areas of nodular consolidations in the bilateral lower lobes with groundglass consolidation of the peripheral of the bilateral upper lobes consistent with multifocal infection compatible with Covid pneumonia. No pleural effusions or pneumothorax. Patient has been seen by pulmonary medicine is not a candidate f or Remdesivir. Convalescent plasma has been ordered as well as Tocilizumab 1 dose. Patient is currently pulse ox 95% on 15 L nonrebreather. 06/15: Repeat chest x-ray reveals worsening infiltrates. Patient is currently on nonrebreather and nasal cannula with pulse ox of 89%. Patient states that he is not sleeping because of coughing. He continues to have cough, shortness of breath. Noted to be tachypneic. Patient states he is eating okay. Melatonin, Flonase and Tessalon Perles added. Patient has been afebrile, heart rate 87, respiratory rate 32, blood pressure 112/70. Repeat blood work reveals WBC 11.4, hemoglobin 15.4, platelet count 208. D-dimer 0.95. Sodium 136 other electroly jagdeep and renal function normal. Blood sugar 118. AST 96, ALT 67, alkaline phosphatase 70. LDH 2884. C-reactive protein 59.4. 06/16: Patient's pulse ox is 90-92% on high flow nasal cannula at 13 L along with 100% nonrebreather. Patient was seen by Dr. Kern plan is to try and wean off 100% oxygen. Patient states that his breathing is stable today. He continues to have shortness of breath with minimal activity and cough. Patient started on mycelex noemi for thrush. He has been afebrile, heart rate 80, blood pressure 114/69. Repeat chest x-ray reveals improving bilateral lung infiltra jagdeep. Patient is continued on dexamethasone, Lovenox and vitamin supplements. 06/17: Yesterday afternoon, received call the patient had subcutaneous emphysema that was new and stat chest x-ray was ordered. This revealed interval development of subcutaneous emphysema within the bilateral neck. Some pneumo mediastinum may be present as the source. Pneumothorax is identified. This was reviewed by Dr. Kern at the time. Last evening at 2200, A-Team was called for puffiness of the neck and shoulder skin. Repeat chest x-ray revealed prominent interval increase in subcutaneous emphysema pattern. Patient was transferred to the intensive care unit. Patient has been seen in the intensive care unit today. He remains on 15 L high flow nasal cannula in addition to 100% nonrebreather facemask. D-dimer is 17.6, LDH 533. Patient remains on Decadron, Lovenox and supplements. Promethazine was added for cough suppression. Subcutaneous emphysema is stable. 06/18 patient evaluated bedside has worsening subcutaneous emphysema. Does appear anxious on examination. He is on Xanax to 0.25 mg twice a day with no improvement in patient's and slightly. We'll repeat chest x-ray does suggest tiny pneumothorax in addition to subcutaneous emphysema. Patient is currently maintaining oxygen saturation on interval 60 L with FiO2 of 90% with a nonrebreather 100%. Minimum exertion is causing desaturation. Patient appears to have worsening inflammation markers including worsening LDH and liver enzymes. Pulmonary care for management of the Covid. Continues to keep patient on dexamethasone, convalescent plasma. Patient is not a candidate for remdesivir. We will start patient on Lexapro 10 mg daily at bedtime to help with anxiety. IV fluids switch to D5NS as patient is not eating being on mask and is hungry. 06/19 patient evaluated bedside has worsening subcutaneous emphysema, facial swelling and pneumomediastinum. Patient is alert and keeping saturation 90-92% on BiPAP. He appears anxious and is breathing at 26 respiratory rate per minute. Blood pressure 1:30/74 heart rate of 113.chest x-rays consistent with bilateral subcutaneous emphysema and pneumomediastinum any apical pneumothorax dizzy and chest tube at this point. On evaluation patient's labs patient's leukocytosis and 19 sodium stable at 1:30, creatinine 0.67 and ferritin is 3144 elevated liver enzymes early at 7846 increased from prior low albumin. patient continues to have increased in size the despite initiation of Remeron will increase Remeron to 30 mg at bedtime Xanax increased to 0.5 twice a day f rom 0.25. Ativan can be given if patient is unable to tolerate oral medication. Plan to start patient on TPN tomorrow. Low sodium could be a results of D5W 06/20: Repeat blood work reveals WBC 29.6, hemoglobin 17, platelet count 124. D- dimer greater than 35. Sodium 132, potassium 5.4, chloride 95, CO2 31, BUN 28 creatinine 0.75. Blood sugar 162. AST 131, ALT 92, alkaline phosphatase 310. LDH 9901. CK 501. C-reactive protein 3.7. Patient became more hypoxic during the night with pulse ox down to the low 70s with mental status changes. Patient was intubated and placed on mechanical ventilation. Tidal volume 400, FiO2 of 75% and PEEP of 18. He is on propofol, Nimbex, levo fed was started and he is status post 2 L of IV fluid. He has on a fentanyl drip. Patient has extensive subcutaneous emphysema. Remeron and clotrimazole discontinued 06/21: Patient remains intubated and on mechanical ventilation. Tidal volume 400, FiO2 decreased from 85-80% this morning, PEEP 16. Patient had bilateral chest tubes placed for pneumothorax bilaterally. This was done last evening. Patient is currently on Nimbex, fentanyl, levo fed. He is on tube feedings at goal. Temperature max 100.2, heart rate 107, respiratory rate 33, blood pressure 118/62, pulse ox 90% with goal to keep above 85%. Repeat blood work reveals WBC 15.9, hemoglobin 14.6, platelet count 96. Sodium 137, potassium 5.1, chloride 100, CO2 39, BUN 26 and creatinine 0.69. Phosphorus 7.3. Magnesium 3.0. Total bilirubin 0.7, AST 59, ALT 61, alkaline phosphatase 190. D-dimer 14.6. LDH 3891. CK 902. C-reactive protein 4.1. Repeat chest x-ray reveals persistent severe bilateral subcutaneous emphysema limiting assessment. Underlying groundglass changes persist. Bilateral chest tubes. Right apical pneumothorax smaller 6 mm versus 2 cm previously. Left apical pneumothorax no longer seen. Better demonstrated pneumomediastinum though suspected to have decreased compared to prior exam. Patient does have less subcutaneous emphysema. 06/22: She remains intubated and on mechanical ventilation with tidal volume 400, FiO2 was 100% this morning and decrease to 70, PEEP is 20. Patient is on propofol and fentanyl as well as Nimbex and bicarb drip. He is not on norepinephrine. Patient is on tube feedings at goal. He remains with bilateral chest tubes in place, no air leak. He has been afebrile, heart rate 108, respiratory rate 34, a pressure 108/61, pulse ox is 90%. Repeat blood work reveals WBC 20, hemoglobin 13.7. D-dimer 10.74. CO2 42, BUN 31 creatinine 0.63. Blood sugars running between 130s to 177. Repeat chest x-ray reveals stable findings. patient remains intubated with a tidal volume of 400 FiO2 of 65% PEEP 20. Patient continues to remain sedated and paralyzed on propofol, fentanyl Precedex and Pneumovax. Continues to have chest tubes with slight air leaks noted. Ch est x-ray continues to remain the same with bilateral patchy infiltrate and subcutaneous emphysema. Vitals this morning suggests tachycardia 120 respiratory rate 34 saturating 90% on 65% FiO2 blood pressure 128/71 labs suggestive leukocytosis of 17.6 hemoglobin 12.9 ABG drawn at this morning sugges ts a pH of 7.3 pCO2 86 pO2 77 bicarb 50. Patient's LDH is 12,748. CRP 7. 06/24 patient remains intubated and mechanically ventilated sedated and paralyzed on assist control with a tidal volume of 400 FiO2 60% PEEP on 20 respiratory rate of 14. ABG done this morning suggests a pO2 of 75 pCO2 83. 7.39. Patient continues to remain on propofol and Pneumovax and fentanyl. The bicarb drip discontinued. 10 chest x-ray shows bilateral subcutaneous emphysema with bilateral patchy infiltrates. Concern for small right apical pneumothorax measuring 1.2 cm versus 9 mm previously. Patient continues to have bilateral chest tubes, minimally leak noted in the right-sided chest tube. No air leak on the left-sided chest tube. Patient remains on enteral feeding. In assessment of patient's blood work slight improvement in CRP noted at 4.7H improved to 2733 liver enzymes continue to rise with AST of 90 ALT 105 alkaline phosphatase 2:30. Bicarb increased to 48. Bicarb drip discontinued. Potassium is noted to be high. One dose of Kayexalate ordered 06/25: Patient remains intubated and mechanically ventilated sedated on pressors on assist control and tidal volume of 400 FiO2 PEEP of 20. Respirations of 14. Patient continues to remain on propofol and Pneumovax and fentanyl. The bicarb drip has been discontinued. Today's chest x-ray shows bilateral subcutaneous emphysema bilateral patchy infiltrates they're similar to the prior exam. Patient continues to have bilateral chest tubes. A 14 Angiocath was inserted into his neck to help relieve subcutaneous emphysema. Patient remains on enternal feeding. WCC 60.4, hemoglobin 12.1, platelets 159, potassium 5.1, BUN 48, creatinine 0.63. ABG pH 7.38, pCO2 87, pO2 61, HCO3 51, ABG O2 sat 91. 06/26: Maintained intubated and mechanically ventilated sedated and paralyzed on assist control with FiO2 on 65% and a PEEP of 18. WBC 17, hemoglobin 11.6, potassium 5.3, BUN 48, creatinine 0.64 d-dimer 3.67,. Temperature 99.9. Patient continues to remain on propofol and Pneumovax and fentanyl. Chest x-ray findings similar to prior exam. Angiocath to the left subclavian to help with subcutaneous emphysema. Substance emphysema is improved compared to yesterday with less edema to face and neck. Patient remains on enternal feeding. Bilateral chest tubes in place and draining. 06/27: Patient remain intubated and sedated still required high FiO2 with higher PEEP to keep his pulse ox above 90 percentile. Patient subcutaneous emphysema slightly but better today there is no more swelling and eyelid this point. Patient still sedated. Patient will be going for trach and PEG tube tomorrow, patient probably will require longer term vent management. 06/28: Patient remains in the ICU, still intubated and sedated bilateral chest tubes in place with intermittent air leaks to the right chest tube. He continues on cefepime for positive cultures for MSSA and moraxella. Subcutaneous emphysema status post placement of 14-gauge Angiocath to left neck has improved. He will be going for tracheostomy and PEG tube placement today. Bicarbonate drip was discontinued due to hyponatremia and he was started on D5W. 06/29: A shunt underwent PEG tube and trach placement today. He also had a second right-sided chest tube placed by Dr. manuel last night. Patient now has 2 chest tubes on the right and one on the left. He remains on mechanical ventilation with tidal volume 500, FiO2 70, PEEP of 18. He has been afebrile for 24 hours. Heart rate 101, respiratory rate 36, blood pressure 100/61, pulse ox 96%. WBC 12.7, hemoglobin 10.3, platelet count 139. Sodium 150, potassium 4.6, chloride 107, CO2 42, BUN 83 and creatinine of 1.27. Blood sugars running between 121-168. 06/30: Patient remains in the intensive care unit status post tracheostomy and PEG tube placement yesterday by Dr. Apodaca. Tracheostomy tube remains intact and midline. She remains on ventilator with assist control 34, tidal volume 400, FiO2 70% and PEEP of 18. Oxygen saturation on current mechanical ventilator settings are 89%. He has one left pleural chest tube and 2 right pleural chest tubes. Continuous air leak to one of the right pleural chest tubes. Draining thin scant serosanguineous drainage. Chest x-ray this morning shows resolution of the right-sided pneumothorax. Sputum culture was positive for MSSA, Moraxella and is currently on cefepime and vancomycin. Urine output has been 30-60 mL per hour. Remains on fentanyl drip, propofol drip and Nimbex drip. Repeat blood work reveals WBC 9.3, hemoglobin 9.5, platelet count 152. Sodium 149, potassium 4.5, chloride 111, CO2 38, BUN 94, creatinine 1.97. Blood sugar 114. Patient is currently on dextrose 5%. 07/01: Patient remains with mechanical ventilation with tidal volume 400, FiO2 70% and PEEP of 18, assist control mode of 34. He remains with 2 right-sided chest tubes in 1 left-sided. There is largely on the right-sided chest tube. Repeat chest x-ray reveals bilateral airspace infiltrates persist greatest on the right lung base. No sizable pneumothorax seen at this time. He has been afebrile, heart rate 75, respiratory rate 42, blood pressure 134/70, pulse ox 93%. Repeat blood work reveals WBC 9.8, hemoglobin 9.3, platelet count 196. Sodium 144, potassium 4.8, chloride 108, CO2 31. Renal function is worsening with BUN of 120 and creatinine 2.78. Blood sugars are now running 171-226. Levemir 7 units daily will be added. Patient's girlfriend apparently is upset that she feels she is not getting enough information about the patient. She did get an update this morning from patient's nurse. Dr. Baldwin will contact the patient's girlfriend today. 07/02: Patient remains with mechanical ventilation with a tidal 400 FiO2 of 50% and appears of 18 assist control mode of 34. Patient brings with 2 right-sided chest tubes and 1 left-sided. Chest x-ray shows diffuse partially consolidative opacities in the mid lower lung zones unchanged compared to the prior study. Patient remains afebrile, heart rate 57, pulse rate 34, blood pressure 148/75, 88% on mechanical ventilation. W BC 7.2, hemoglobin 8.8, sodium 138, potassium 5.0, BUN 134, creatinine 3.19. 07/03: Patient remains with mechanical ventilation with tidal volume 400 FiO2 of 50% and PEEP at 18 assist control mode of 34. Patient continues to have 2 right-sided chest tubes and 1 left-sided chest tube. Chest x-ray shows airspace disease stable. Less than 5% left apical pneumothorax. Lucency in the right upper quadrant could represent free intraperitoneal air. Patient remains afebrile, respirations 40, blood pressure 128/70, pulse ox 87% on mechanical ventilation. Nephrology was consult in due to increase and creatinine. We will continue with Lasix at 60 mm grams twice a day. Potassium was elevated at 5.4 related to the potassium placement given yesterday. 07/04: Yesterday, patient stopped making urine down to less than [address] Francois was contacted and he inserted a right femoral dialysis catheter and patient underwent hemodialysis for the first time yesterday with removal of 1.5 L and plan is for 2 L off today. He was started on levo fed this morning at 20 mics. Repeat chest x-ray reveals stable diffuse airspace disease with right pleural effusion. Suspect small amount of pneumomediastinum. Lucency in the upper quadrant of the abdomen again could represent free intraperitoneal air. Patient is continued on cefepime. Dr. Kern wishes to get a CAT scan of the chest but patient is not stable enough for transportation to the CAT scan. Repeat blood work reveals WBC 13.4, hemoglobin 10.1, platelet count 262. ABGs revealed pH of 7.05, pCO2 78, P0 266, bicarb 21, CO2 24, O2 saturation 84. Sodium 136, potassium 6.5, chloride 102, CO2 23, BUN 142 and creatinine 3.91. Blood sugars running between 100 4594. LDH 2435. Alkaline phosphatase 136. C- reactive protein 24.2. CK 108. Family was in yesterday and will be coming back in again today. They do understand the prognosis is poor. REVIEW OF SYSTEMS Unable to obtain due to intubation. PHYSICAL EXAMINATION Gen: This is a 55-year-old male. He is resting in ICU bed appears to be comfortable. Facial swelling continues. HEENT: Head is atraumatic, normocephalic. Tracheostomy is midline. NECK: Subcutaneous emphysema. chest : Patient currently has 2 right-sided chest tubes and 1 left-sided chest tube.Chest tube noted with minimal air leak noted on the right chest tube no air leak noted on the left chest tube. Breath sounds are diminished bilaterally. Cardiac: Regular rate S1-S2 no S3 or JVD. Abdomen: positive bowel sounds, nondistended, PEG tube in place. Blevins catheter. Extremities trace edema bilaterally. Neurologic exam patient is on mechanical ventilation. ASSESSMENT AND PLAN 1. Acute hypoxic respiratory failure secondary to Covid 19 pneumonia requiring intubation and mechanical ventilation on 06/19. Patient has been seen by pulmonary medicine status post Convalescent plasma and Tocilizumab 1 dose. Continue Solu-Medrol 60 mg IV every 6 hours, Lovenox 40 mg subcu daily, vitamins, cefepime 2 g IV piggyback every 8 hours. Patient is on levo fed. He is status post trach and PEG tube insertion. Lasix 60 mg IV every 12 hours 2. Elevated inflammatory markers secondary to Covid 19. Continue to monitor. 3. Acute kidney injury. Nephrology consult appreciated. Continue with Lasix 60 mg IV twice a day. 4. Mild hyponatremia, hypernatremia. Patient is currently on D5W at 50 mL/h. 5. Elevated d-dimer. Acute pulmonary embolism has been ruled out by CTA. 6. Lymphocytopenia secondary to Covid 19. 7. Thrush. Status post treatment 8. Subcutaneous emphysema and pneumomediastinum, stable. Status post bilateral chest tube insertion with improvement. 9. Right-sided pneumothorax status post second chest tube. 10. Thrombocytopenia secondary to Covid. Continue to monitor. 11. Metabolic acidosis. Status post bicarb drip. 12. Hyperglycemia. Continue Accu-Cheks and sliding scale insulin. Levemir 7 units held at this time. 13. Acute kidney injury requiring dialysis. Patient is scheduled for repeat dialysis this morning. 14. GI prophylaxis. Protonix daily. 15. DVT prophylaxis. Lovenox. Prognosis is guarded. Impression and plan of care have been directed as dictated by the signing physician. Cathy Quintanilla nurse practitioner acting as scribe for signing physician. Objective - Vital Signs Vital signs: Vital Signs Temp 96.6 F L 07/04/20 08:00 Pulse 120 H 07/04/20 09:00 Resp 40 H 07/04/20 09:00 BP 105/68 07/04/20 08:00 Pulse Ox 85 L 07/04/20 09:00 Intake & Output 07/03/20 07/04/20 07/04/20 18:59 06:59 18:59 Intake Total 6328.931 5948.633 394.556 Output Total 455 1847 20 Balance 1149.504 -534.367 374.556 Weight 85.2 kg Intake: IV 253 296 46 Dextrose 5% in Water 1, 220 230 40 000 ml @ 20 mls/hr IV . Q24H [facility] Rx#:[id number] pressure bag 33 66 6 Intake, IV Titration 861.504 566.633 248.556 Amount Norepinephrine 8 mg In 67.593 Sodium Chloride 0.9% 250 ml @ 0.05 MCG/KG/MIN 8. 243 mls/hr IV .Q24H [facility] Rx#:[id number] Rocuronium 400 mg In 280 0.265 Sodium Chloride 0.9% 100 ml @ 5 MCG/KG/MIN 8.82 mls/hr IV .[id number] [facility] Rx #:[id number] fentaNYL (PF). 1,000 mcg 381.504 287.854 80.963 In Sodium Chloride 0.9% 80 ml @ Per Protocol IV . Q0M [facility] Rx#:[id number] propofoL 1,000 mg In 200 278.514 100 Empty Bag 1 bag @ Titrate IV .Q0M [facility] Rx#: [id number] Tube Feeding 220 180 40 Other 270 270 60 Output: Chest Tube Drainage 360 320 20 Chest Tube Left 90 60 0 Chest Tube Right 120 90 0 Chest Tube Right Upper 150 170 20 Urine 95 27 0 Hemodialysis 1500 Other: Voiding Method Indwelling Catheter Indwelling Catheter ABP, PAP, CO, CI - Last Documented Arterial Blood Pressure 106/66 - Labs CBC & Chem 7: 07/04/20 04:42 07/04/20 04:42 Labs: Abnormal Lab Results - Last 24 Hours (Table) 07/03/20 07/03/20 07/03/20 Range/Units 11:52 14:12 18:59 WBC (3.8-10.6) k/uL RBC (4.30-5.90) m/uL Hgb (13.0-17.5) gm/dL Hct (39.0-53.0) % Neutrophils # (Manual) (1.3-7.7) k/uL Lymphocytes # (Manual) (1.0-4.8) k/uL Metamyelocytes # (Man) (0) k/uL Myelocytes # (Manual) (0) k/uL Promyelocytes # (Man) (0) k/uL Nucleated RBCs (0-0) /100 WBC ABG pH 7.07 L* (7.35-7.45) ABG pCO2 80 H* (35-45) mmHg ABG pO2 73 L (83-108) mmHg ABG Total CO2 25 H (19-24) mmol/L ABG O2 Saturation 89.2 L (94-97) % Sodium (137-145) mmol/L Potassium (3.5-5.1) mmol/L BUN (9-20) mg/dL Creatinine (0.66-1.25) mg/dL Glucose (74-99) mg/dL POC Glucose (mg/dL) 186 H 171 H (75-99) mg/dL Calcium (8.4-10.2) mg/dL Alkaline Phosphatase (38-126) U/L Lactate Dehydrogenase (313-618) U/L C-Reactive Protein (<1.0) mg/dL Total Protein (6.3-8.2) g/dL Albumin (3.5-5.0) g/dL Procalcitonin (0.02-0.09) ng/mL 07/03/20 07/04/20 07/04/20 Range/Units 23:48 04:42 04:42 WBC 13.4 H (3.8-10.6) k/uL RBC 3.22 L (4.30-5.90) m/uL Hgb 10.1 L (13.0-17.5) gm/dL Hct 30.8 L (39.0-53.0) % Neutrophils # (Manual) 11.80 H (1.3-7.7) k/uL Lymphocytes # (Manual) 0.41 L (1.0-4.8) k/uL Metamyelocytes # (Man) 0.54 H (0) k/uL Myelocytes # (Manual) 0.54 H (0) k/uL Promyelocytes # (Man) 0.27 H (0) k/uL Nucleated RBCs 1 H (0-0) /100 WBC ABG pH (7.35-7.45) ABG pCO2 (35-45) mmHg ABG pO2 (83-108) mmHg ABG Total CO2 (19-24) mmol/L ABG O2 Saturation (94-97) % Sodium 136 L (137-145) mmol/L Potassium 6.5 H* (3.5-5.1) mmol/L BUN 142 H* (9-20) mg/dL Creatinine 3.91 H (0.66-1.25) mg/dL Glucose 145 H (74-99) mg/dL POC Glucose (mg/dL) 194 H (75-99) mg/dL Calcium 7.2 L (8.4-10.2) mg/dL Alkaline Phosphatase 137 H (38-126) U/L Lactate Dehydrogenase 2435 H (313-618) U/L C-Reactive Protein 24.2 H (<1.0) mg/dL Total Protein 5.6 L (6.3-8.2) g/dL Albumin 2.5 L (3.5-5.0) g/dL Procalcitonin (0.02-0.09) ng/mL 07/04/20 07/04/20 07/04/20 Range/Units 04:42 05:05 05:51 WBC (3.8-10.6) k/uL RBC (4.30-5.90) m/uL Hgb (13.0-17.5) gm/dL Hct (39.0-53.0) % Neutrophils # (Manual) (1.3-7.7) k/uL Lymphocytes # (Manual) (1.0-4.8) k/uL Metamyelocytes # (Man) (0) k/uL Myelocytes # (Manual) (0) k/uL Promyelocytes # (Man) (0) k/uL Nucleated RBCs (0-0) /100 WBC ABG pH 7.05 L* (7.35-7.45) ABG pCO2 78 H* (35-45) mmHg ABG pO2 66 L (83-108) mmHg ABG Total CO2 (19-24) mmol/L ABG O2 Saturation 84.3 L (94-97) % Sodium (137-145) mmol/L Potassium (3.5-5.1) mmol/L BUN (9-20) mg/dL Creatinine (0.66-1.25) mg/dL Glucose (74-99) mg/dL POC Glucose (mg/dL) 188 H (75-99) mg/dL Calcium (8.4-10.2) mg/dL Alkaline Phosphatase (38-126) U/L Lactate Dehydrogenase (313-618) U/L C-Reactive Protein (<1.0) mg/dL Total Protein (6.3-8.2) g/dL Albumin (3.5-5.0) g/dL Procalcitonin 17.92 H (0.02-0.09) ng/mL Microbiology - Last 24 Hours (Table) 06/27/20 22:24 Blood Culture - Final Blood No Growth after 144 hours 06/27/20 18:31 Blood Culture - Final Blood No Growth after 144 hours
[2020-07-04 12:30] LABS: Glucose,Whole Blood 158 mg/dL (75-99)
[2020-07-04 12:46] LABS: ABG Base Excess -7.7 mmol/L; ABG HCO3 24 mmol/L (21-25); ABG Oxygen Saturation 82.6 % (94-97); ABG PO2 68 mmHg (83-108); ABG TCO2 27 mmol/L (19-24)
[2020-07-04 12:48] LABS: Hepatitis B Surface AB- Quant 5.2 mIU/mL; Hepatitis B Surface Antibody Non-Reactive (Non-Reactive); Hepatitis B Surface Antigen Non-Reactive (Non-Reactive)
[2020-07-04 12:49] LABS: ABG PCO2 95 mmHg (35-45)
[2020-07-04] MEDS ORDERED: SODIUM BICARB 8.4% 50 ML SYR (1 MEQ/ML) IV STA ×3 (13:10→16:46)
--- NOTE | 2020-07-04 13:10 | PN ---
PROGRESS NOTE Patient is seen for followup for acute kidney injury, acute tubular necrosis, currently nonoliguric. Urine output had dropped. Currently only about 5 to 10 mL an hour. The patient's potassium was elevated at 6.5 this morning. He did have treatment of hemodialysis yesterday and is scheduled for another treatment today. The patient remains on the vent. FiO2 is at 100%, O2 sats about 85% to86%. Case is discussed with nursing staff. Heart rate about 113 to 120 per minute. Patient is afebrile. He does have edema in the periphery. He is tolerating tube feeds. He is maintained on sedation. The patient is maintained on Levophed as well, currently at 0.32 mcg/kg per minute. LABS: Labs are reviewed sodium 136, potassium 6.5, chloride 102, BUN 142, creatinine 3.9, hemoglobin 10.1 g/dL. ASSESSMENT: 1. Acute kidney injury, acute tubular necrosis, currently oliguric with a persistent hyperkalemia, currently with no urine output, status post dialysis yesterday. Patient was dialyzed again this morning. We tried for about 1 L of ultrafiltration. We will plan for possible dialysis again tomorrow if patient remains hemodynamically stable. 2. COVID pneumonia. 3. Hyperkalemia associated with acute kidney injury. 4. Acute hypoxic respiratory failure. 5. Barotrauma requiring chest tubes. PLAN: Repeat labs in a.m. Possible dialysis again tomorrow if patient is hemodynamically stable. MMODL / IJN: [id number] /
[2020-07-04] MEDS ORDERED: DEXTROSE 5% IN WATER 1,000 ML with SODIUM BICARB (1 MEQ/ML) 150 ML IV SCH (13:15)
[2020-07-04 13:26] LABS: INR 1.2 (<1.2)
--- NOTE | 2020-07-04 13:53 | P.PN ---
Subjective Progress Note Date: 07/04/20 CHIEF COMPLAINT: COVID-19 pneumonia HISTORY OF PRESENT ILLNESS: Patient is in the ICU intubated and sedated. Patient has bilateral chest tubes. Patient is status post tracheostomy and PEG tube placement. Patient is tolerating his tube feedings. Patient is getting hemodialysis today. He is requiring vasopressor. Afebrile WBC 13.4 PHYSICAL EXAM: VITAL SIGNS: Reviewed. GENERAL: Well-developed in no acute distress. HEENT: Head is atraumatic, normocephalic. Tracheostomy site clean dry and intact ABDOMEN: Soft. Nondistended. Nontender. PEG tube site clean dry and intact NEUROLOGIC: Intubated and sedated ASSESSMENT: 1. Acute hypoxic respiratory failure secondary to COVID-19 pneumonia and required prolonged mechanical ventilation 2. Severe protein calorie malnutrition PLAN: -Continue tube feedings -Continue ICU management -Continue supportive care Physician Screwmaker Automatic note has been reviewed by physician. Signing provider agrees with the documented findings, assessment, and plan of care. Objective - Vital Signs Vital signs: Vital Signs Temp 96.1 F L 07/04/20 10:50 Pulse 118 H 07/04/20 11:00 Resp 40 H 07/04/20 11:00 BP 104/82 07/04/20 10:50 Pulse Ox 86 L 07/04/20 11:00 Intake & Output 07/03/20 07/04/20 07/04/20 18:59 06:59 18:59 Intake Total 5519.209 6611.633 1109.539 Output Total 455 1847 1165 Balance 1149.504 -534.367 -55.461 Weight 85.2 kg Intake: IV 253 296 138 Dextrose 5% in Water 1, 220 230 120 000 ml @ 20 mls/hr IV . Q24H [facility] Rx#:[id number] pressure bag 33 66 18 Intake, IV Titration 861.504 566.633 761.539 Amount Norepinephrine 8 mg In 151.399 Sodium Chloride 0.9% 250 ml @ 0.05 MCG/KG/MIN 8. 243 mls/hr IV .Q24H [facility] Rx#:[id number] Rocuronium 400 mg In 280 0.265 139.735 Sodium Chloride 0.9% 100 ml @ 5 MCG/KG/MIN 8.82 mls/hr IV .[id number] [facility] Rx #:[id number] fentaNYL (PF). 1,000 mcg 381.504 287.854 270.405 In Sodium Chloride 0.9% 80 ml @ Per Protocol IV . Q0M [facility] Rx#:[id number] propofoL 1,000 mg In 200 278.514 200 Empty Bag 1 bag @ Titrate IV .Q0M [facility] Rx#: [id number] Tube Feeding 220 180 120 Other 270 270 90 Output: Chest Tube Drainage 360 320 150 Chest Tube Left 90 60 40 Chest Tube Right 120 90 30 Chest Tube Right Upper 150 170 80 Urine 95 27 15 Hemodialysis 1500 1000 Other: Voiding Method Indwelling Catheter Indwelling Catheter ABP, PAP, CO, CI - Last Documented Arterial Blood Pressure 104/62 - Labs CBC & Chem 7: 07/04/20 04:42 07/04/20 12:33 Labs: Abnormal Lab Results - Last 24 Hours (Table) 07/03/20 07/03/20 07/03/20 Range/Units 14:12 18:59 23:48 WBC (3.8-10.6) k/uL RBC (4.30-5.90) m/uL Hgb (13.0-17.5) gm/dL Hct (39.0-53.0) % Neutrophils # (Manual) (1.3-7.7) k/uL Lymphocytes # (Manual) (1.0-4.8) k/uL Metamyelocytes # (Man) (0) k/uL Myelocytes # (Manual) (0) k/uL Promyelocytes # (Man) (0) k/uL Nucleated RBCs (0-0) /100 WBC INR (<1.2) ABG pH 7.07 L* (7.35-7.45) ABG pCO2 80 H* (35-45) mmHg ABG pO2 73 L (83-108) mmHg ABG Total CO2 25 H (19-24) mmol/L ABG O2 Saturation 89.2 L (94-97) % Sodium (137-145) mmol/L Potassium (3.5-5.1) mmol/L BUN (9-20) mg/dL Creatinine (0.66-1.25) mg/dL Glucose (74-99) mg/dL POC Glucose (mg/dL) 171 H 194 H (75-99) mg/dL Calcium (8.4-10.2) mg/dL Alkaline Phosphatase (38-126) U/L Lactate Dehydrogenase (313-618) U/L C-Reactive Protein (<1.0) mg/dL Total Protein (6.3-8.2) g/dL Albumin (3.5-5.0) g/dL Procalcitonin (0.02-0.09) ng/mL 07/04/20 07/04/20 07/04/20 Range/Units 04:42 04:42 04:42 WBC 13.4 H (3.8-10.6) k/uL RBC 3.22 L (4.30-5.90) m/uL Hgb 10.1 L (13.0-17.5) gm/dL Hct 30.8 L (39.0-53.0) % Neutrophils # (Manual) 11.80 H (1.3-7.7) k/uL Lymphocytes # (Manual) 0.41 L (1.0-4.8) k/uL Metamyelocytes # (Man) 0.54 H (0) k/uL Myelocytes # (Manual) 0.54 H (0) k/uL Promyelocytes # (Man) 0.27 H (0) k/uL Nucleated RBCs 1 H (0-0) /100 WBC INR (<1.2) ABG pH (7.35-7.45) ABG pCO2 (35-45) mmHg ABG pO2 (83-108) mmHg ABG Total CO2 (19-24) mmol/L ABG O2 Saturation (94-97) % Sodium 136 L (137-145) mmol/L Potassium 6.5 H* (3.5-5.1) mmol/L BUN 142 H* (9-20) mg/dL Creatinine 3.91 H (0.66-1.25) mg/dL Glucose 145 H (74-99) mg/dL POC Glucose (mg/dL) (75-99) mg/dL Calcium 7.2 L (8.4-10.2) mg/dL Alkaline Phosphatase 137 H (38-126) U/L Lactate Dehydrogenase 2435 H (313-618) U/L C-Reactive Protein 24.2 H (<1.0) mg/dL Total Protein 5.6 L (6.3-8.2) g/dL Albumin 2.5 L (3.5-5.0) g/dL Procalcitonin 17.92 H (0.02-0.09) ng/mL 07/04/20 07/04/20 07/04/20 Range/Units 05:05 05:51 11:57 WBC (3.8-10.6) k/uL RBC (4.30-5.90) m/uL Hgb (13.0-17.5) gm/dL Hct (39.0-53.0) % Neutrophils # (Manual) (1.3-7.7) k/uL Lymphocytes # (Manual) (1.0-4.8) k/uL Metamyelocytes # (Man) (0) k/uL Myelocytes # (Manual) (0) k/uL Promyelocytes # (Man) (0) k/uL Nucleated RBCs (0-0) /100 WBC INR (<1.2) ABG pH 7.05 L* (7.35-7.45) ABG pCO2 78 H* (35-45) mmHg ABG pO2 66 L (83-108) mmHg ABG Total CO2 (19-24) mmol/L ABG O2 Saturation 84.3 L (94-97) % Sodium (137-145) mmol/L Potassium (3.5-5.1) mmol/L BUN (9-20) mg/dL Creatinine (0.66-1.25) mg/dL Glucose (74-99) mg/dL POC Glucose (mg/dL) 188 H 158 H (75-99) mg/dL Calcium (8.4-10.2) mg/dL Alkaline Phosphatase (38-126) U/L Lactate Dehydrogenase (313-618) U/L C-Reactive Protein (<1.0) mg/dL Total Protein (6.3-8.2) g/dL Albumin (3.5-5.0) g/dL Procalcitonin (0.02-0.09) ng/mL 07/04/20 07/04/20 07/04/20 Range/Units 12:33 12:33 12:42 WBC (3.8-10.6) k/uL RBC (4.30-5.90) m/uL Hgb (13.0-17.5) gm/dL Hct (39.0-53.0) % Neutrophils # (Manual) (1.3-7.7) k/uL Lymphocytes # (Manual) (1.0-4.8) k/uL Metamyelocytes # (Man) (0) k/uL Myelocytes # (Manual) (0) k/uL Promyelocytes # (Man) (0) k/uL Nucleated RBCs (0-0) /100 WBC INR 1.2 H (<1.2) ABG pH 7.00 L* (7.35-7.45) ABG pCO2 95 H* (35-45) mmHg ABG pO2 68 L (83-108) mmHg ABG Total CO2 27 H (19-24) mmol/L ABG O2 Saturation 82.6 L (94-97) % Sodium (137-145) mmol/L Potassium 5.8 H (3.5-5.1) mmol/L BUN (9-20) mg/dL Creatinine (0.66-1.25) mg/dL Glucose (74-99) mg/dL POC Glucose (mg/dL) (75-99) mg/dL Calcium (8.4-10.2) mg/dL Alkaline Phosphatase (38-126) U/L Lactate Dehydrogenase (313-618) U/L C-Reactive Protein (<1.0) mg/dL Total Protein (6.3-8.2) g/dL Albumin (3.5-5.0) g/dL Procalcitonin (0.02-0.09) ng/mL Microbiology - Last 24 Hours (Table) 06/27/20 22:24 Blood Culture - Final Blood No Growth after 144 hours 06/27/20 18:31 Blood Culture - Final Blood No Growth after 144 hours
[2020-07-04 14:39] VITALS: TEMP 98.1
[2020-07-04 15:42] LABS: ABG Base Excess -1.8 mmol/L; ABG HCO3 28 mmol/L (21-25); ABG Oxygen Saturation 83.6 % (94-97); ABG PO2 65 mmHg (83-108); ABG TCO2 31 mmol/L (19-24); Allen Test Performed? Yes
[2020-07-04 15:45] LABS: ABG PCO2 95 mmHg (35-45); ABG PH 7.08 (7.35-7.45)
[2020-07-04 17:47] LABS: ABG Base Excess 0.5 mmol/L; ABG HCO3 30 mmol/L (21-25); ABG Oxygen Saturation 77.2 % (94-97); ABG TCO2 33 mmol/L (19-24); Allen Test Performed? Yes
[2020-07-04 17:59] LABS: ABG PCO2 95 mmHg (35-45); ABG PH 7.11 (7.35-7.45); ABG PO2 56 mmHg (83-108)
[2020-07-04] MEDS: CLEVIDIPINE BUTYRATE 25 MG in EMPTY BAG 1 BAG IV SCH (18:09)
[2020-07-05 00:50] VITALS: BP 79/53; PULSE 38; RESP 27
--- NOTE | 2020-07-05 05:35 | P.PN ---
Progress Note - Text Progress Note Date: 07/04/20 REASON FOR FOLLOWUP: Pneumonia. INTERVAL HISTORY: The patient is afebrile. The patient has been started on levophed this am , FiO2 is currently stable as well. No significant purulent secretions through the ET reported by nursing staff. The patient did have dialysis catheter placement by Vascular Surgery for dialysis and is undergoing dialysis. Tolerating his tube feeds and no diarrhea has been reported. PHYSICAL EXAMINATION: Blood pressure is 105/60 with a pulse of 88, temperature 97.3. General description is a middle-aged male intubated on the vent. Respiratory system: Unlabored breathing with bilateral coarse rhonchi. Heart: S1-S2 regular. Abdomen: Soft, no tenderness. LABS: reviewed DIAGNOSTIC IMPRESSION AND PLAN: Patient with acute respiratory failure which is multifactorial in this patient who did have a component of pneumonia. Sputum has been MRSA as well as MSSA. Patient covered with cefepime to continue along with respiratory support , overall prognosis guarded in view of multi organ failure
--- NOTE | 2020-07-05 08:12 | P.DS ---
Providers Date of admission: 06/14/20 00:37 Expected date of discharge: 07/04/20 Attending physician: Suha Holder Consults: 06/14/20 01:46 Consult Physician Urgent Consulting Provider: Ebony Kern Consult Reason/Comments: Hypoxia, Covid pneumonia Do you want consulting provider notified?: Yes 06/20/20 08:23 Consult Physician Routine Consulting Provider: Cori Campos Consult Reason/Comments: covid, pneumomediastinum Do you want consulting provider notified?: Yes 06/24/20 10:24 Consult Physician Routine Consulting Provider: Lexx Morelos Consult Reason/Comments: covid pneumonia, sputum staph and morazella Do you want consulting provider notified?: Yes 06/27/20 08:17 Consult Physician Routine Consulting Provider: Tonio Apodaca Consult Reason/Comments: trach and peg Do you want consulting provider notified?: Yes 07/02/20 10:35 Consult Physician Urgent Consulting Provider: Fadumo Roque Consult Reason/Comments: elevated bun/creatine Do you want consulting provider notified?: Yes 07/03/20 15:07 Consult Physician Urgent Consulting Provider: Silas Francois Consult Reason/Comments: HD catheter Do you want consulting provider notified?: Yes Primary care physician: Maxwell Alexander [facility] Course: HISTORY OF PRESENT ILLNESS This is a 55-year-old male patient of Dr. Maxwell Alexander with significant past medical history. Patient states he started having symptoms on June 01 and was diagnosed with COVID-19 on June 08. Patient symptoms or body aches and fatigue as well as cough with white sputum production, increasing shortness of breath and measured pulse ox at home which worsened. He complains of headache chills and nausea. Patient presented to [facility] emergency center for e valuation. Patient was afebrile, heart rate 101, blood pressure 114/75, pulse ox 86% on room air. WBC 6.4, hemoglobin 16.2, platelet count 153. D-dimer 0.84. AST 106, ALT 44, alkaline phosphatase 57, LDH 2547. CRP 150. Sodium 129, potassium 4.6, chloride 97, CO2 23, BUN 12 and creatinine 0.84. Blood sugar 114. Chest x-ray reveals extensive pulmonary infiltrates related to pneumonia and ARDS. CTA of the chest reveals no pulmonary embolism. Patchy areas of nodular consolidations in the bilateral lower lobes with groundglass consolidation of the peripheral of the bilateral upper lobes consistent with multifocal infection compatible with Covid pneumonia. No pleural effusions or pneumothorax. Patient has been seen by pulmonary medicine is not a candidate for Remdesivir. Convalescent plasma has been ordered as well as Tocilizumab 1 dose. Patient is currently pulse ox 95% on 15 L nonrebreather. 06/15: Repeat chest x-ray reveals worsening infiltrates. Patient is currently on nonrebreather and nasal cannula with pulse ox of 89%. Patient states that he is not sleeping because of coughing. He continues to have cough, shortness of breath. Noted to be tachypneic. Patient states he is eating okay. Melatonin, Flonase and Tessalon Perles added. Patient has been afebrile, heart rate 87, respiratory rate 32, blood pressure 112/70. Repeat blood work reveals WBC 11.4, hemoglobin 15.4, platelet count 208. D-dimer 0.95. Sodium 136 other electrolytes and renal function normal. Blood sugar 118. AST 96, ALT 67, alkaline phosphatase 70. LDH 2884. C-reactive protein 59.4. 06/16: Patient's pulse ox is 90-92% on high flow nasal cannula at 13 L along with 100% nonrebreather. Patient was seen by Dr. Kern plan is to try and wean off 100% oxygen. Patient states that his breathing is stable today. He continues to have shortness of breath with minimal activity and cough. Patient started on mycelex noemi for thrush. He has been afebrile, heart rate 80, blood pressure 114/69. Repeat chest x-ray reveals improving bilateral lung infiltrates. Patient is continued on dexamethasone, Lovenox and vitamin supplements. 06/17: Yesterday afternoon, received call the patient had subcutaneous emphysema that was new and stat chest x-ray was ordered. This revealed interval development of subcutaneous emphysema within the bilateral neck. Some pneumo mediastinum may be present as the source. Pneumothorax is identified. This was reviewed by Dr. Kern at the time. Last evening at 2200, A-Team was called for puffiness of the neck and shoulder skin. Repeat chest x-ray revealed prominent interval increase in subcutaneous emphysema pattern. Patient was transferred to the intensive care unit. Patient has been seen in the intensive care unit today. He remains on 15 L high flow nasal cannula in addition to 100% nonrebreather facemask. D-dimer is 17.6, LDH 533. Patient remains on Decadron, Lovenox and supplements. Promethazine was added for cough suppression. Subcutaneous emphysema is stable. 06/18 patient evaluated bedside has worsening subcutaneous emphysema. Does appear anxious on examination. He is on Xanax to 0.25 mg twice a day with no improvement in patient's and slightly. We'll repeat chest x-ray does suggest tiny pneumothorax in addition to subcutaneous emphysema. Patient is currently maintaining oxygen saturation on interval 60 L with FiO2 of 90% with a nonrebreather 100%. Minimum exertion is causing desaturation. Patient appears to have worsening inflammation markers including worsening LDH and liver enzymes. Pulmonary care for management of the Covid. Continues to keep patient on dexamethasone, convalescent plasma. Patient is not a candidate for remdesivir. We will start patient on Lexapro 10 mg daily at bedtime to help with anxiety. IV fluids switch to D5NS as patient is not eating being on mask and is hungry. 06/19 patient evaluated bedside has worsening subcutaneous emphysema, facial swelling and pneumomediastinum. Patient is alert and keeping saturation 90-92% on BiPAP. He appears anxious and is breathing at 26 respiratory rate per minute. Blood pressure 1:30/74 heart rate of 113.chest x-rays consistent with bilateral subcutaneous emphysema and pneumomediastinum any apical pneumothorax dizzy and chest tube at this point. On evaluation patient's labs patient's leukocytosis and 19 sodium stable at 1:30, creatinine 0.67 and ferritin is 3144 elevated liver enzymes early at 7846 increased from prior low albumin. patient continues to have increased in size the despite initiation of Remeron will increase Remeron to 30 mg at bedtime Xanax increased to 0.5 twice a day from 0.25. Ativan can be given if patient is unable to tolerate oral medication. Plan to start patient on TPN tomorrow. Low sodium could be a results of D5W 06/20: Repeat blood work reveals WBC 29.6, hemoglobin 17, platelet count 124. D- dimer greater than 35. Sodium 132, potassium 5.4, chloride 95, CO2 31, BUN 28 creatinine 0.75. Blood sugar 162. AST 131, ALT 92, alkaline phosphatase 310. LDH 9901. CK 501. C-reactive protein 3.7. Patient became more hypoxic during the night with pulse ox down to the low 70s with mental status changes. Patient was intubated and placed on mechanical ventilation. Tidal volume 400, FiO2 of 75% and PEEP of 18. He is on propofol, Nimbex, levo fed was started and he is status post 2 L of IV fluid. He has on a fentanyl drip. Patient has extensive subcutaneous emphysema. Remeron and clotrimazole discontinued 06/21: Patient remains intubated and on mechanical ventilation. Tidal volume 400, FiO2 decreased from 85-80% this morning, PEEP 16. Patient had bilateral chest tubes placed for pneumothorax bilaterally. This was done last evening. Patient is currently on Nimbex, fentanyl, levo fed. He is on tube feedings at goal. Temperature max 100.2, heart rate 107, respiratory rate 33, blood pressure 118/62, pulse ox 90% with goal to keep above 85%. Repeat blood work re veals WBC 15.9, hemoglobin 14.6, platelet count 96. Sodium 137, potassium 5.1, chloride 100, CO2 39, BUN 26 and creatinine 0.69. Phosphorus 7.3. Magnesium 3.0. Total bilirubin 0.7, AST 59, ALT 61, alkaline phosphatase 190. D-dimer 14.6. LDH 3891. CK 902. C-reactive protein 4.1. Repeat chest x-ray reveals persistent severe bilateral subcutaneous emphysema limiting assessment. Underlying groundglass changes persist. Bilateral chest tubes. Right apical pneumothorax smaller 6 mm versus 2 cm previously. Left apical pneumothorax no longer seen. Better demonstrated pneumomediastinum though suspected to have decreased compared to prior exam. Patient does have less subcutaneous emphysema. 06/22: She remains intubated and on mechanical ventilation with tidal volume 400, FiO2 was 100% this morning and decrease to 70, PEEP is 20. Patient is on propofol and fentanyl as well as Nimbex and bicarb drip. He is not on norepinephrine. Patient is on tube feedings at goal. He remains with bilateral chest tubes in place, no air leak. He has been afebrile, heart rate 108, respiratory rate 34, a pressure 108/61, pulse ox is 90%. Repeat blood work reveals WBC 20, hemoglobin 13.7. D-dimer 10.74. CO2 42, BUN 31 creatinine 0.63. Blood sugars running between 130s to 177. Repeat chest x-ray reveals stable findings. patient remains intubated with a tidal volume of 400 FiO2 of 65% PEEP 20. Patient continues to remain sedated and paralyzed on propofol, fentanyl Precedex and Pneumovax. Continues to have chest tubes with slight air leaks noted. Chest x-ray continues to remain the same with bilateral patchy infiltrate and subcutaneous emphysema. Vitals this morning suggests tachycardia 120 respiratory rate 34 saturating 90% on 65% FiO2 blood pressure 128/71 labs suggestive leukocytosis of 17.6 hemoglobin 12.9 ABG drawn at this morning suggests a pH of 7.3 pCO2 86 pO2 77 bicarb 50. Patient's LDH is 12,748. CRP 7. 06/24 patient remains intubated and mechanically ventilated sedated and paralyzed on assist control with a tidal volume of 400 FiO2 60% PEEP on 20 respiratory rate of 14. ABG done this morning suggests a pO2 of 75 pCO2 83. 7.39. Patient continues to remain on propofol and Pneumovax and fentanyl. The bicarb drip discontinued. 10 chest x-ray shows bilateral subcutaneous emphysema with bilateral patchy infiltrates. Concern for small right apical pneumothorax measuring 1.2 cm versus 9 mm previously. Patient continues to have bilateral chest tubes, minimally leak noted in the right-sided chest tube. No air leak on the left-sided chest tube. Patient remains on enteral feeding. In assessment of patient's blood work slight improvement in CRP noted at 4.7H improved to 2733 liver enzymes continue to rise with AST of 90 ALT 105 alkaline phosphatase 2:30. Bicarb increased to 48. Bicarb drip discontinued. Potassium is noted to be high. One dose of Kayexalate ordered 06/25: Patient remains intubated and mechanically ventilated sedated on pressors on assist control and tidal volume of 400 FiO2 PEEP of 20. Respirations of 14. Patient continues to remain on propofol and Pneumovax and fentanyl. The bicarb drip has been discontinued. Today's chest x-ray shows bilateral subcutaneous emphysema bilateral patchy infiltrates they're similar to the prior exam. Patient continues to have bilateral chest tubes. A 14 Angiocath was inserted into his neck to help relieve subcutaneous emphysema. Patient remains on enternal feeding. WCC 60.4, hemoglobin 12.1, platelets 159, potassium 5.1, BUN 48, creatinine 0.63. ABG pH 7.38, pCO2 87, pO2 61, HCO3 51, ABG O2 sat 91. 06/26: Maintained intubated and mechanically ventilated sedated and paralyzed on assist control with FiO2 on 65% and a PEEP of 18. WBC 17, hemoglobin 11.6, potassium 5.3, BUN 48, creatinine 0.64 d-dimer 3.67,. Temperature 99.9. Patient continues to remain on propofol and Pneumovax and fentanyl. Chest x-ray findings similar to prior exam. Angiocath to the left subclavian to help with subcutaneous emphysema. Substance emphysema is improved compared to yesterday with less edema to face and neck. Patient remains on enternal feeding. Bilateral chest tubes in place and draining. 06/27: Patient remain intubated and sedated still required high FiO2 with higher PEEP to keep his pulse ox above 90 percentile. Patient subcutaneous emphysema slightly but better today there is no more swelling and eyelid this point. Patient still sedated. Patient will be going for trach and PEG tube tomorrow, patient probably will require longer term vent management. 06/28: Patient remains in the ICU, still intubated and sedated bilateral chest tubes in place with intermittent air leaks to the right chest tube. He continues on cefepime for positive cultures for MSSA and moraxella. Subcutaneous emphysema status post placement of 14-gauge Angiocath to left neck has improved. He will be going for tracheostomy and PEG tube placement today. Bicarbonate drip was discontinued due to hyponatremia and he was started on D5W. 06/29: A shunt underwent PEG tube and trach placement today. He also had a second right-sided chest tube placed by Dr. manuel last night. Patient now has 2 chest tubes on the right and one on the left. He remains on mechanical ventilation with tidal volume 500, FiO2 70, PEEP of 18. He has been afebrile for 24 hours. Heart rate 101, respiratory rate 36, blood pressure 100/61, pulse ox 96%. WBC 12.7, hemoglobin 10.3, platelet count 139. Sodium 150, potassium 4.6, chloride 107, CO2 42, BUN 83 and creatinine of 1.27. Blood sugars running between 121-168. 06/30: Patient remains in the intensive care unit status post tracheostomy and PEG tube placement yesterday by Dr. Apodaca. Tracheostomy tube remains intact and midline. She remains on ventilator with assist control 34, tidal volume 400, FiO2 70% and PEEP of 18. Oxygen saturation on current mechanical ventilator settings are 89%. He has one left pleural chest tube and 2 right pleural chest tubes. Continuous air leak to one of the right pleural chest tubes. Draining thin scant serosanguineous drainage. Chest x-ray this morning shows resolution of the right-sided pneumothorax. Sputum culture was positive for MSSA, Moraxella and is currently on cefepime and vancomycin. Urine output has been 30-60 mL per hour. Remains on fentanyl drip, propofol drip and Nimbex drip. Repeat blood work reveals WBC 9.3, hemoglobin 9.5, platelet count 152. Sodium 149, potassium 4.5, chloride 111, CO2 38, BUN 94, creatinine 1.97. Blood sugar 114. Patient is currently on dextrose 5%. 07/01: Patient remains with mechanical ventilation with tidal volume 400, FiO2 70% and PEEP of 18, assist control mode of 34. He remains with 2 right-sided chest tubes in 1 left-sided. There is largely on the right-sided chest tube. Repeat chest x-ray reveals bilateral airspace infiltrates persist greatest on the right lung base. No sizable pneumothorax seen at this time. He has been af ebrile, heart rate 75, respiratory rate 42, blood pressure 134/70, pulse ox 93%. Repeat blood work reveals WBC 9.8, hemoglobin 9.3, platelet count 196. Sodium 144, potassium 4.8, chloride 108, CO2 31. Renal function is worsening with BUN of 120 and creatinine 2.78. Blood sugars are now running 171-226. Levemir 7 units daily will be added. Patient's girlfriend apparently is upset that she feels she is not getting enough information about the patient. She did get an update this morning from patient's nurse. Dr. Baldwin will contact the patient's girlfriend today. 07/02: Patient remains with mechanical ventilation with a tidal 400 FiO2 of 50% and appears of 18 assist control mode of 34. Patient brings with 2 right-sided chest tubes and 1 left-sided. Chest x-ray shows diffuse partially consolidative opacities in the mid lower lung zones unchanged compared to the prior study. Patient remains afebrile, heart rate 57, pulse rate 34, blood pressure 148/75, 88% on mechanical ventilation. W BC 7.2, hemoglobin 8.8, sodium 138, potassium 5.0, BUN 134, creatinine 3.19. 07/03: Patient remains with mechanical ventilation with tidal volume 400 FiO2 of 50% and PEEP at 18 assist control mode of 34. Patient continues to have 2 right-sided chest tubes and 1 left-sided chest tube. Chest x-ray shows airspace disease stable. Less than 5% left apical pneumothorax. Lucency in the right u pper quadrant could represent free intraperitoneal air. Patient remains afebrile, respirations 40, blood pressure 128/70, pulse ox 87% on mechanical ventilation. Nephrology was consult in due to increase and creatinine. We will continue with Lasix at 60 mm grams twice a day. Potassium was elevated at 5.4 related to the potassium placement given yesterday. 07/04: Yesterday, patient stopped making urine down to less than [address] Francois was contacted and he inserted a right femoral dialysis catheter and patient underwent hemodialysis for the first time yesterday with removal of 1.5 L and plan is for 2 L off today. He was started on levo fed this morning at 20 mics. Repeat chest x-ray reveals stable diffuse airspace disease with right pleural effusion. Suspect small amount of pneumomediastinum. Lucency in the upper quadrant of the abdomen again could represent free intraperitoneal air. Patient is continued on cefepime. Dr. Kern wishes to get a CAT scan of the chest but patient is not stable enough for transportation to the CAT scan. Repeat blood work reveals WBC 13.4, hemoglobin 10.1, platelet count 262. ABGs revealed pH of 7.05, pCO2 78, P0 266, bicarb 21, CO2 24, O2 saturation 84. Sodium 136, potassium 6.5, chloride 102, CO2 23, BUN 142 and creatinine 3.91. Blood sugars running between 100 4594. LDH 2435. Alkaline phosphatase 136. C- reactive protein 24.2. CK 108. Family was in yesterday and will be coming back in again today. They do understand the prognosis is poor. Patient's condition continued to deteriorate and family made the patient comfort care and patient several hours later. Please see nursing documentation for details. ASSESSMENT AND PLAN 1. Acute hypoxic respiratory failure secondary to Covid 19 pneumonia requiring intubation and mechanical ventilation. 2. Elevated inflammatory markers secondary to Covid 19. GRADE 5 CRS. 3. Acute kidney injury. 4. Mild hyponatremia, hypernatremia. 5. Elevated d-dimer. 6. Lymphocytopenia secondary to Covid 19. 7. Thrush. 8. Subcutaneous emphysema and pneumomediastinum. 9. Right-sided pneumothorax status post second chest tube. 10. Thrombocytopenia secondary to Covid. 11. Metabolic acidosis. 12. Hyperglycemia. 13. Acute kidney injury requiring dialysis. Impression and plan of care have been directed as dictated by the signing physician. Cathy Quintanilla nurse practitioner acting as scribe for signing physician. Patient Condition at Discharge: Stable Plan - Discharge Summary Discharge Rx Participant: Yes New Discharge Prescriptions: No Action No Known Home Medications Discharge Medication List No Known Home Medications 06/14/20 [History] Follow up Appointment(s)/Referral(s): Maxwell Alexander MD [Primary Care Provider] - 1-2 days Discharge Disposition: - Preliminary Cause of Preliminary Cause of : GRADE 5 CRS, COVID-19 PNEUMONIA
--- NOTE | 2020-07-08 08:50 | CDI ---
Documentation Clarification Form Date: 07/08/2020 08:29:22 AM From: Sanaz BeckettPrideDESEAN aguilar, CCDS Admit Date: 06/14/2020 12:37:00 AM Patient Name: Ty Berry Visit Number: [id number] Discharge Date: 07/04/2020 10:00:00 PM ATTENTION: The Clinical Documentation Specialists (CDI) and [facility] Coding Staff appreciate your assistance in clarifying documentation. Please respond to the clarification below the line at the bottom and electronically sign. The CDI & [facility] Coding staff will review the response and follow-up if needed. Please note: Queries are made part of the Legal Health Record. If you have any questions, please contact the author of this message via ITS. Dr. Suha Holder: The patient presented with the following clinical indicators. Additional clarification regarding the etiology/cause of the clinical indicators is requested. History/Risk Factors: Per the 06/13 ED Note & the 06/14 H/P the patient has no past medical history and takes no prescription medication. Clinical Indicators: Presented to the ED on 06/13 with SOB, fatigue, fever, cough. Initially had nausea, vomiting and diarrhea. Patient's was positive for COVID. Was slightly tachy on admission, HR 101 with PO 85% RA. Diagnosed with COVID 5 days prior. Admitted with COVID 19 Pneumonia & Hypoxia. Patient was initially treated with High Flow O2, then BiPAP, subsequently intubated and put on vent on 06/20. Received Tracheostomy & PEG tube on 06/29. The patient on 07/04. 06/13 VS: T 97.8, P 101, R 18 - 20 (SOB), BP 114/75, PO 86 RA - 96 15L nrb. 06/13 LAB: WBC 6.4, Neut 5.2, Lymph 0.9, D Dimer 0.84, LDH 2547, CRP 150.7 06/20 VS: T 100.2, P 102, R 41 (SOB, labored, cough, shallow, tachypnea), BP 112/68, PO 82 100 BiPAP - Intubated/Vent 06/18 LAB: WBC 19.7, Neut 17.5, Lymph 1.0, D Dimer 21.17, Cr Kinase 456, CRP 1.1. Cultures: 06/20 Sputum: Final (negative) 06/21 Sputum: Final (Staph aureus, Moraxella Catarra) 06/27 Blood cultures x3: Final (negative) 06/27 Urine culture: Final (negative) 06/28 Sputum: Final (Staph aureus) Treatment 06/13: I Decadron, IV fluid 500 mls @ 999 mls/hr q31M, IV Zofran, Vit C, Vit D3, po Hexadrol, Lovenox sq, po Orazinc, IV Actemra (not a candidate for Remdesivir). 06/20 Intubated on vent, to ICU, IV Lasix, IV Propofol, IV Fentanyl Citrate, IV Na Bicarb, IV Levophed, IV Cefepime Infectious Disease Consult 06/24: "Patient with sepsis in this patient admitted to the hospital for more than 12 days ago for COVID-19 infection. Now with sepsis picture, source possible pneumonia with sputum showing Staph aureus." In your professional opinion, please clarify if these findings signify the following conditions: [ ] Sepsis, please specify organism: [ ] Severe Sepsis with organ failure [ ] Septic Shock [ ] Other, please specify [ ] Unable to determine (Template Last Reviewed: April 2020) Severe Sepsis with organ failure covid secondary bacterial pneumonia stapfh aureus MTDD
--- NOTE | 2020-07-08 09:22 | CONS ---
CONSULTATION DATE OF SURGERY: 06/20/2020 I have seen, examined, and agree with the midlevel's findings. MMODL / IJN: [id number] /
== END 2020-07-04 22:00 | disposition expired | DRG 4 ==
LOC: EC 22:16 → 1SOBS 06-14 00:37 → 2SICU 06-16 20:45
PROVIDERS: ADMIT Family Medicine; ATTEND Family Medicine
PROC: 3E0333Z Introduction of Anti-inflammatory into Peripheral Vein, Percutaneous Approach (ICD-10-PCS; 2020-06-13)
PROC: XW033H5 Introduction of Tocilizumab into Peripheral Vein, Percutaneous Approach, New Technology Group 5 (ICD-10-PCS; 2020-06-14)
PROC: XW13325 Transfusion of Convalescent Plasma (Nonautologous) into Peripheral Vein, Percutaneous Approach, New Technology Group 5 (ICD-10-PCS; 2020-06-14)
PROC: 5A0945A Assistance with Respiratory Ventilation, 24-96 Consecutive Hours, High Flow/Velocity Cannula (ICD-10-PCS; 2020-06-15)
PROC: 5A1955Z Respiratory Ventilation, Greater than 96 Consecutive Hours (ICD-10-PCS; 2020-06-16)
PROC: 0BH17EZ Insertion of Endotracheal Airway into Trachea, Via Natural or Artificial Opening (ICD-10-PCS; 2020-06-16)
PROC: 5A09457 Assistance with Respiratory Ventilation, 24-96 Consecutive Hours, Continuous Positive Airway Pressure (ICD-10-PCS; 2020-06-18)
PROC: 0W9930Z Drainage of Right Pleural Cavity with Drainage Device, Percutaneous Approach (ICD-10-PCS; 2020-06-20)
PROC: 3E033XZ Introduction of Vasopressor into Peripheral Vein, Percutaneous Approach (ICD-10-PCS; 2020-06-20)
PROC: 0W9B30Z Drainage of Left Pleural Cavity with Drainage Device, Percutaneous Approach (ICD-10-PCS; 2020-06-20)
PROC: 02HV33Z Insertion of Infusion Device into Superior Vena Cava, Percutaneous Approach (ICD-10-PCS; 2020-06-20)
PROC: B548ZZA Ultrasonography of Superior Vena Cava, Guidance (ICD-10-PCS; 2020-06-20)
PROC: 03HY32Z Insertion of Monitoring Device into Upper Artery, Percutaneous Approach (ICD-10-PCS; 2020-06-27)
PROC: 4A133B1 Monitoring of Arterial Pressure, Peripheral, Percutaneous Approach (ICD-10-PCS; 2020-06-27)
PROC: 4A133J1 Monitoring of Arterial Pulse, Peripheral, Percutaneous Approach (ICD-10-PCS; 2020-06-27)
PROC: 02HV33Z Insertion of Infusion Device into Superior Vena Cava, Percutaneous Approach (ICD-10-PCS; 2020-06-28)
PROC: 0W9930Z Drainage of Right Pleural Cavity with Drainage Device, Percutaneous Approach (ICD-10-PCS; 2020-06-28)
PROC: 0DH63UZ Insertion of Feeding Device into Stomach, Percutaneous Approach (ICD-10-PCS; 2020-06-29)
PROC: 3E0G76Z Introduction of Nutritional Substance into Upper GI, Via Natural or Artificial Opening (ICD-10-PCS; 2020-06-29)
PROC: 0B110F4 Bypass Trachea to Cutaneous with Tracheostomy Device, Open Approach (ICD-10-PCS; principal; 2020-06-29 10:30)
PROC: 06HM33Z Insertion of Infusion Device into Right Femoral Vein, Percutaneous Approach (ICD-10-PCS; 2020-07-03)
PROC: B54BZZA Ultrasonography of Right Lower Extremity Veins, Guidance (ICD-10-PCS; 2020-07-03)
PROC: 5A1D70Z Performance of Urinary Filtration, Intermittent, Less than 6 Hours Per Day (ICD-10-PCS; 2020-07-03)
DX: U07.1 COVID-19 (principal); J12.82 Pneumonia due to coronavirus disease 2019; A41.89 Other specified sepsis; J80 Acute respiratory distress syndrome; J15.211 Pneumonia due to Methicillin susceptible Staphylococcus aureus; E43 Unspecified severe protein-calorie malnutrition; N17.0 Acute kidney failure with tubular necrosis; J15.212 Pneumonia due to Methicillin resistant Staphylococcus aureus; R65.20 Severe sepsis without septic shock; E87.1 Hypo-osmolality and hyponatremia; J93.9 Pneumothorax, unspecified; E87.4 Mixed disorder of acid-base balance; E87.0 Hyperosmolality and hypernatremia; Z99.11 Dependence on respirator [ventilator] status; J93.82 Other air leak; D89.835 Cytokine release syndrome, grade 5; B37.9 Candidiasis, unspecified; D69.59 Other secondary thrombocytopenia; I95.9 Hypotension, unspecified; E87.5 Hyperkalemia; R73.9 Hyperglycemia, unspecified; Z68.30 Body mass index [BMI] 30.0-30.9, adult; J98.2 Interstitial emphysema; Z80.1 Family history of malignant neoplasm of trachea, bronchus and lung; Z51.5 Encounter for palliative care; Z66 Do not resuscitate; N18.9 Chronic kidney disease, unspecified; I12.9 Hypertensive chronic kidney disease with stage 1 through stage 4 chronic kidney disease, or unspecified chronic kidney disease; F41.9 Anxiety disorder, unspecified
CPT/HCPCS: 36415; 36573; 36600; 43246; 71045; 71275; 76770; 80048; 80053; 80202; 81001; 82550; 82570; 82728; 82805; 83605; 83615; 83735; 84100; 84132; 84133; 84145; 84300; 84540; 84550; 85025; 85027; 85379; 85610; 85730; 86140; 86706; 86850; 86900; 86901; 87040; 87070; 87077; 87086; 87186; 87205; 87340; 90935; 93005; 94002; 94003; 94660; 94760